=== PATIENT | male | born 1940 | race Caucasian/White ===

== ENCOUNTER 2018-09-21 19:07 | Inpatient (IN) ==
[2018-09-21] MEDS ORDERED: Sod Chloride 0.9% Inj 1,000 ML IV.SIG ONE (19:20)
[2018-09-21] MEDS ORDERED: Octreotide Inj 50 MCG/ML Vial IV.PUSH ONE (19:24)
[2018-09-21] MEDS ORDERED: Pantoprazole Inj 80 MG in Sodium Chlor 0.9% Inj 35 ML IV.SIG ONE (19:24)
[2018-09-21] MEDS ORDERED: Octreotide Inj 50 MCG/ML Vial IV.PUSH PRN (19:24)
[2018-09-21 19:53] LABS: Baso # (Auto) 0.1 th/mm3 (0.0-0.2); Baso % (Auto) 0.7 % (0.0-2.0); Eos # (Auto) 0.5 th/mm3 (0.0-0.4); Eos % (Auto) 5.1 % (0.0-4.0); Hematocrit 23.1 % (39.0-51.0); Lymph # (Auto) 0.9 th/mm3 (1.0-4.8); Lymph % (Auto) 9.7 % (9.0-44.0); Mean Corpuscular HGB Conc 34.5 % (32.0-36.0); Mean Corpuscular Hemoglobin 29.3 pg (27.0-34.0); Mean Corpuscular Volume 85.1 fL (80.0-100.0); Mean Platelet Volume 9.3 fL (7.0-11.0); Mono # (Auto) 1.6 th/mm3 (0.0-0.9); Neut # (Auto) 6.3 th/mm3 (1.8-7.7); Neut % (Auto) 67.5 % (16.0-70.0); Platelet Count 127 th/mm3 (150-450); Red Blood Count 2.72 mil/mm3 (4.50-5.90); Red Cell Distribution Width 16.1 % (11.6-17.2); White Blood Count 9.3 th/mm3 (4.0-11.0)
[2018-09-21] MEDS ORDERED: Morphine Sulfate Inj 2 MG/ML Vial IV.PUSH PRN (19:58)
[2018-09-21] MEDS ORDERED: Bisacodyl 10 MG Supp RECTAL PRN (19:58)
--- NOTE | 2018-09-21 19:58 | P.HPCC ---
History of Present Illness Service: Critical care medicine Primary Care Physician: [facility] History of Present Illness: History was largely obtained from his daughter who is at bedside. 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 He was diagnosed with hepatitis C at the time of his stroke and underwent treatment for that. He has cirrhosis and was diagnosed with "liver cancer" about a year and a half ago and underwent 1 round of chemo, radiation, chemo embolization ( TACE procedure) at the [facility] in [place]. He has relocated to [place] to live near his daughter. At around 4 pm 09/21 he had an episode of hematemesis. He then went to his friend's house and had another episode of hematemesis and syncope with bowel and bladder incontinence. His daughter then put him in the car and he had an additional episode of hematemesis so he was brought into the emergency department. Here his blood pressure has been 110- 120 with heart rate in the 80s. He is not on any anticoagulant therapy or NSAIDS. He has not had a prior history of GI bleeding. He does have recurrent ascites and has undergone monthly since July of 2017, although the last paracentesis was 4 months ago. In the ED he has received 1 L NS bolus, Protonix 80 mg IV and drip and Octreotide 50 mcg IV and drip. He is receiving 2 units of emergency release blod. Gastroenterology has been consulted and plants to take patient emergently to OR. He has had 2 episodes of vomiting dark clots in the ED. Daughter states his diuretic was recently "stopped or cut back on dose". She does not have a list of his current medications, but is trying to access his records on the [facility]. - Diagnosis (1) Acute blood loss anemia (2) Hematemesis (3) Cirrhosis (4) Hx of hepatitis C (5) MART (acute kidney injury) (6) Thrombocytopenia Inpatient Certification: I certify that the inpatient services were ordered in accordance with Medicare regulations governing the order. This includes certification that hospital inpatient services are reasonable and necessary and in the case of services not specified as inpatient-only under 42 CFR 419.22(n), that they are appropriately provided as inpatient services in accordance to with the 2-midnight benchmark under 43 CFR 412.3(e) Review of Systems All other systems reviewed negative except as stated in HPI PMFSH - History History Provided By: Patient, Family Member - Medical History Medical History: Medical History (Last Updated 09/21/18 @ 20:24 by Annita Vuong MD) Aphasia Cirrhosis History of stroke Liver cancer - Surgical History Surgical History: Surgical History (Last Updated 09/21/18 @ 20:26 by Annita Vuong MD) Hx of appendectomy - Family History Family History: Family History (Last Updated 09/21/18 @ 20:26 by Annita Vuong MD) Other Family history unknown - Social History I have reviewed the patient's Social History: Yes - Tobacco History Smoking Status: Former smoker - Alcohol History How Often Do You Have a Drink Containing Alcohol: Never (quit 56) - Substance Use History Substance History: Past History - Substance Use Type Alcohol Last Used: 5 years ago Medications and Allergies Active Medications: Active Medications Sodium Chloride (Ns Inj) 250 mls @ 15 mls/hr IV.SIG ONCE NALINI Stop: 09/22/18 12:39 Pantoprazole Sodium 80 mg/ (Sodium Chloride) 100 mls @ 10 mls/hr IV.CONT CONT NALINI Sodium Chloride (Ns Inj) 250 mls @ 15 mls/hr IV.SIG ONCE NALINI Stop: 09/22/18 12:39 Phytonadione 10 mg/ Sodium (Chloride) 51 mls @ 102 mls/hr IV.SIG ONCE ONE Stop: 09/21/18 20:29 Octreotide Acetate (Sandostatin Inj) 50 mcg IV.PUSH PRN PRN PRN Reason: For uncontrolled hemorrhage Stop: 09/22/18 19:23 Sodium Chloride (Ns Flush) 2 ml IV.FLUSH PRN PRN PRN Reason: FLUSH AFTER USING IV ACCESS Allergies Allergy/AdvReac Type Severity Reaction Status Date / Time No Known Allergies Allergy Verified 09/21/18 19:20 Results - Labs CBC & Chem 7: 09/22/18 00:13 09/21/18 19:20 Labs: Short CBC 09/21/18 Range/Units 19:20 WBC 9.3 (4.0-11.0) th/mm3 Hgb 8.0 L (13.0-17.0) gm/dL Hct 23.1 L (39.0-51.0) % Plt Count 127 L (150-450) th/mm3 Exam Vital signs: Vital Signs 09/21/18 19:07 09/21/18 19:26 09/21/18 19:38 Temperature 97.8 F 98.1 F Pulse Rate 89 87 Respiratory Rate 22 18 Blood Pressure 128/58 L 112/59 L Pulse Oximetry 97 97 98 Intake & Output 09/21/18 09/21/18 09/22/18 06:59 18:59 06:59 Intake Total 400 / 400 Balance 400 / 400 Weight 72.575 kg Intake: Intake (Blood Product) Amt 400 / 400 Rbc As-3 Leukoreduced Unit 400 / 400 [id number] Narrative: GENERAL: Ill-appearing male who is laying in ED stretcher. SKIN: cool, dry. Annular rash with central clearing on abdomen which appears is pruritic due to excoriation, appears c/w tinea corporis. There is excoriating over the left lateral thigh. There are multiple patches on his back that have somewhat different morphology than the lesions on his abdomen that could be pityriasis. HEAD: Atraumatic. Normocephalic. EYES: Pupils equal and round. ENT: No nasal bleeding or discharge. Mucous membranes dry. NECK: Trachea midline. Jugular vein flat. CARDIOVASCULAR: Regular rate and rhythm, sinus on the monitor with rate in the 80s. No murmurs rubs or gallops. RESPIRATORY: Mildly tachypneic with no accessory muscle use. Clear to auscultation bilaterally. On room air. GASTROINTESTINAL: Abdomen distended without tenderness or rebound, reducible umbilical hernia. Hypoactive bowel sounds. MUSCULOSKELETAL: Extremities without clubbing, cyanosis. 1+ bipedal edema. NEUROLOGICAL: Awake but lethargic. oriented to self and hospital. Moves all extremities spontaneously. Caprini VTE Risk Assessment Caprini VTE Risk Assessment: Moderate/High Risk (score >= 2) VTE Pharmacological Exception Reason: Hemorrhage Caprini Risk Assessment Model: Point Value = 1 Point Value = 2 Point Value = 3 Point Value = 5 Age 41-60 Minor surgery BMI > 25 kg/m2 Swollen legs Varicose veins or History of unexplained or recurrent spontaneous Oral contraceptives or hormone replacement Sepsis (< 1 month) Serious lung disease, including pneumonia (< 1 month) Abnormal pulmonary function Acute myocardial infarction Congestive heart failure (< 1 month) History of inflammatory bowel disease Medical patient at bed rest Age 61-74 Arthroscopic surgery Major open surgery (> 45 min) Laparoscopic surgery (> 45 min) Malignancy Confined to bed (> 72 hours) Immobilizing plaster cast Central venous access Age >= 75 History of VTE Family history of VTE Factor V Leiden Prothrombin [id number] Lupus anticoagulant Anticardiolipin antibodies Elevated serum homocysteine Heparin-induced thrombocytopenia Other congenital or acquired thrombophilia Stroke (< 1 month) Elective arthroplasty Hip, pelvis, or leg fracture Acute spinal cord injury (< 1 month) Prophylaxis Regimen: Total Risk Factor Score Risk Level Prophylaxis Regimen 0-1 Low Early ambulation 2 Moderate Order ONE of the following: *Sequential Compression Device (SCD) *Heparin 5000 units SQ BID 3-4 Higher Order ONE of the following medications: *Heparin 5000 units SQ TID *Enoxaparin/Lovenox 40 mg SQ daily (WT < 150 kg, CrCl > 30 mL/min) *Enoxaparin/Lovenox 30 mg SQ daily (WT < 150 kg, CrCl > 10-29 mL/min) *Enoxaparin/Lovenox 30 mg SQ BID (WT < 150 kg, CrCl > 30 mL/min) AND/OR *Sequential Compression Device (SCD) 5 or more Highest Order ONE of the following medications: *Heparin 5000 units SQ TID (Preferred with Epidurals) *Enoxaparin/Lovenox 40 mg SQ daily (WT < 150 kg, CrCl > 30 mL/min) *Enoxaparin/Lovenox 30 mg SQ daily (WT < 150 kg, CrCl > 10-29 mL/min) *Enoxaparin/Lovenox 30 mg SQ BID (WT < 150 kg, CrCl > 30 mL/min) AND *Sequential Compression Device (SCD) Assessment and Plan - Problem List (1) Acute blood loss anemia Code(s): D62 - Acute posthemorrhagic anemia Status: Acute (2) Hematemesis Code(s): K92.0 - Hematemesis Status: Acute (3) Cirrhosis Code(s): K74.60 - Unspecified cirrhosis of liver Status: Chronic (4) Hx of hepatitis C Code(s): Z86.19 - Personal history of other infectious and parasitic diseases Status: Chronic (5) MART (acute kidney injury) Code(s): N17.9 - Acute kidney failure, unspecified Status: Acute (6) Thrombocytopenia Code(s): D69.6 - Thrombocytopenia, unspecified Status: Acute - Assessment and Plan Plan: NEURO: History of stroke with residual aphasia Hyperammonemia No NGT so unable to give po lactulose/rifaximin currently. Morphine prn pain. Propofol drip, RASS -2. RESP: Acute respiratory failure To remain intubated for airway protection while observing for ongoing UGI bleeding. PRVC. Vent Bundle CXR clear with satisfactory ETT position. CV: Essential hypertension On Norvasc at home. Will hold. D5 LR 125 ml/hr. GI: Upper GI bleed secondary to esophageal varices now s/p banding Hx Hep C Cirrhosis Hepatocellular carcinoma s/p TACE procedure Recurrent ascites Protonix drip Octreotide drip Serial hemoglobin Gastroenterology scoped emergently, Dr. Beverly. Esophageal varices banded. Reportedly no active bleeding but unable to rule out gastric varices due to presence of clots in the stomach. No NGT. FEN/RENAL: ?MART (unknown baseline creatinine) Burnett in place. Monitor I/O. Monitor electrolytes and replace as indicated per ICU electrolyte replacement protocol. IVF as per above. ID: Rocephin for SBP prophylaxis. Tinea corporis Clotrimazole 1% cream bid. HEME: Acute blood loss anemia Thrombocytopenia Coagulopathy Transfuse 2 units of emergency release blood. Transfuse 1 unit FFP and 1 unit of platelets per ED physician. Vitamin K 10 mg IV now. Follow-up coags and fibrinogen and serial hemoglobin. Transfuse as indicated based on hemodynamics or for Hgb <7, plts <50, fibrinogen <100. ENDO: Euglycemic PROPH: SCDs for DVT prophylaxis. Pharmacologic DVT prophylaxis is contraindicated. Protonix drip as per above ACCESS: [address]. Patient is critically ill with acute hematemesis and blood loss anemia who is at high risk for further deterioration or . Discussed with Dr. Leal, Dr. Beverly, ED RN, PACU RNs, IMC RN. FULL CODE CCT 60 minutes exclusive of separately billable procedures.
[2018-09-21] MEDS ORDERED: Phytonadione Inj 10 MG in Sodium Chlor 0.9% Inj 50 ML IV.SIG ONE (20:00)
[2018-09-21] MEDS ORDERED: Sodium Chlor 0.9% Inj 250 ML IV.SIG SCH ×2 (20:00)
[2018-09-21] MEDS ORDERED: Pantoprazole Inj 80 MG in Sodium Chlor 0.9% Inj 100 ML IV.CONT SCH (20:00)
[2018-09-21] MEDS ORDERED: Famotidine PF Inj 20 MG/2 ML Vial ONE (20:00)
[2018-09-21 20:07] LABS: Albumin 2.2 g/dL (3.4-5.0); Anion Gap 10 meq/L (5-15); Aspartate Aminotransferase 45 U/L (15-37); Blood Urea Nitrogen 52 mg/dL (7-18); Carbon Dioxide 24.5 meq/L (21.0-32.0); Chloride 108 meq/L (98-107); Glomerular Filtration Rate 34 mL/min (>89); Glucose,Random 153 mg/dL (74-106); Potassium 3.5 meq/L (3.5-5.1); Sodium 142 meq/L (136-145)
[2018-09-21 20:08] LABS: Alanine Aminotransferase 36 U/L (12-78)
[2018-09-21 20:09] LABS: Activated Partial Thrombo Time 32.9 sec (23.4-31.7); INR 1.5 Ratio; Prothrombin Time 15.2 sec (9.8-11.6)
--- NOTE | 2018-09-21 20:09 | ED ---
HPI General Chief complaint: GI Bleed Stated complaint: medical Time Seen by Provider: 09/21/18 19:12 Source: patient and family (Daughter) Mode of arrival: ambulatory Limitations: no limitations History of Present Illness HPI Narrative: 78-year-old male came to the emergency room brought by his daughter and son-in-law with history of vomiting blood. The daughter says that patient was with them and around 5 PM as they were coming out of the cousin's house patient vomited some blood and passed out at the front porch. He was incontinent of his urine and stool. She cleaned him and put him in the car patient woke up at that point and they started driving back home. Soon after she noticed that in the back of the car his eyes rolled back and patient vomited blood again. At this point she decided to bring him to the emergency room. Patient was awake but confused and kept saying that he vomited "chilli". His blood pressure upon arrival was 128/58. Daughter says that he has history of liver cancer and got 1 round of radiation and chemotherapy last year at [facility] in [facility]. He just moved down here to be with her approximately 2 months back. He does not have any established medical care here. Patient was recently started on some antibiotic and steroid for a generalized rash. He has not been diagnosed with varices. However the daughter said that he has had multiple paracentesis for ascites. His ankles and feet are swollen. Patient is not complaining of any pain. Patient told me that for past 2 days he has been feeling like there is something in his throat that he is trying to cough it out. He thought he was coming down with a cold. No blood in the stool. Related Data Allergies Allergy/AdvReac Type Severity Reaction Status Date / Time No Known Allergies Allergy Verified 09/21/18 19:20 Review of Systems ROS: all other systems reviewed are negative PMFSH History History Provided By: Patient and Family Member Social History Social History Substance History: Past History Smoking Status: Former smoker Tobacco Type: Cigarettes How Often Do You Have a Drink Containing Alcohol: Never (quit 56) Exam Narrative Exam Narrative: GENERAL: Awake, confused, moderate distress SKIN: Focused skin assessment warm/dry. Generalized erythematous, maculopapular rash. Spider angiomas, purpura HEAD: Atraumatic. Normocephalic. EYES: Pupils equal and round. No scleral icterus. No injection or drainage. ENT: No nasal bleeding or discharge. Mucous membranes pink and moist. NECK: Trachea midline. No JVD. CARDIOVASCULAR: Regular rate and rhythm. No murmur appreciated. RESPIRATORY: No accessory muscle use. Clear to auscultation. Breath sounds equal bilaterally. GASTROINTESTINAL: Abdomen soft, non-tender, distended. Hepatic and splenic margins not palpable. Caput MUSCULOSKELETAL: No obvious deformities. No clubbing. No cyanosis. Bilateral pedal edema. NEUROLOGICAL: Awake and alert. No obvious cranial nerve deficits. Motor grossly within normal limits. Normal speech. PSYCHIATRIC: Appropriate mood and affect; insight and judgment normal. Procedures Hemaprompt Gastric Content Procedural Steps Taken: specimen placed in appropriate test area, developer placed on specimen and control areas and controls appropriately positive and negative Hemaprompt Gastric Result: negative Course Initial Documented Vital Signs Temperature 97.8 F 09/21/18 19:07 Pulse Rate 89 09/21/18 19:07 Respiratory Rate 22 09/21/18 19:07 Blood Pressure 128/58 L 09/21/18 19:07 Pulse Oximetry 97 09/21/18 19:07 Last Documented Vital Signs Temperature 100.5 F H 09/26/18 08:00 Pulse Rate 110 H 09/26/18 10:00 Respiratory Rate 18 09/26/18 09:21 Blood Pressure 152/73 H 09/26/18 08:30 Pulse Oximetry 100 09/26/18 09:21 Critical Care Time Critical Care Time: Yes Total Critical Care Time: 60 Attestation: Aggregate critical care time was 60 minutes. Time to perform other separately billable procedures was not included in the critical care time. My time did not include minutes spent treating any other patients simultaneously or on activities that did not directly contribute to the patient's treatment. The services I provided to this patient were to treat and/or prevent clinically significant deterioration that could result in: Massive upper GI bleed, Sandostatin bolus and drip, Protonix bolus and drip , transfusion of multiple blood product I provided critical care services requiring my management, as noted below: Chart data review, documentation time, medication orders and management, vital sign assessments/reviewing monitor data, ordering and reviewing lab tests, ordering and interpreting/reviewing x-rays and diagnostic studies, care of the patient and discussion of the patient with the admitting physicians. Medical Decision Making MDM Narrative Medical decision making narrative: 8:06 PM patient was recognized to be in possibly variceal bleeding/upper GI bleed. His shirt was covered in blood and blood clots. This was removed emergently and two large bore IVs were placed. Patient was initially started with 1 L of IV fluid bolus. His blood pressure when I saw him first was 105 systolic. Emergency release blood 2 units was ordered along with 2 units of FFP. Octreotide bolus and drip was ordered and Protonix bolus and drip. GI on-call was called emergently. I spoke with . As per him it was okay to go ahead and transfuse platelets as well. He agreed that the patient needed to go for endoscopy emergently. He wanted the consents to be signed and he was arranging for the team to get to the OR. I explained all this to the patient as well as his daughter. Soon after patient started vomiting blood in the ER again. This time he had close to 200 mL's of bright red blood vomited. Patient is receiving the blood products currently. He is hemodynamically stable at this point. Awaiting for the OR to take the patient for endoscopy. I contacted Dr. Vuong from ICU who will admit the patient. Patient continues to be mentating okay. Medical Screen Exam Complete: Yes Emergency Medical Condition: Yes Lab Data Result diagrams: 09/26/18 06:13 09/26/18 06:13 Lab Results 09/21/18 09/21/18 09/21/18 Range/Units 19:20 19:20 19:20 WBC 9.3 (4.0-11.0) th/mm3 RBC 2.72 L (4.50-5.90) mil/mm3 Hgb 8.0 L (13.0-17.0) gm/dL Hct 23.1 L (39.0-51.0) % MCV 85.1 (80.0-100.0) fL MCH 29.3 (27.0-34.0) pg MCHC 34.5 (32.0-36.0) % RDW 16.1 (11.6-17.2) % Plt Count 127 L (150-450) th/mm3 MPV 9.3 (7.0-11.0) fL Prelim Diff (Auto) Neut % (Auto) 67.5 (16.0-70.0) % Lymph % (Auto) 9.7 (9.0-44.0) % Miller % (Auto) 17.0 H (0.0-8.0) % Eos % (Auto) 5.1 H (0.0-4.0) % Baso % (Auto) 0.7 (0.0-2.0) % Neut # (Auto) 6.3 (1.8-7.7) th/mm3 Lymph # (Auto) 0.9 L (1.0-4.8) th/mm3 Miller # (Auto) 1.6 H (0.0-0.9) th/mm3 Eos # (Auto) 0.5 H (0.0-0.4) th/mm3 Baso # (Auto) 0.1 (0.0-0.2) th/mm3 WBC Differential . Diff Scan Differential Comment Auto diff final Platelet Estimate (Normal) Platelet Morphology (Normal) Ovalocytes (None) Acanthocytes (Spur) (None) Keratocytes (None) PT 15.2 H (9.8-11.6) sec INR 1.5 Ratio APTT 32.9 H (23.4-31.7) sec Fibrinogen (227-377) mg/dL Puncture Site Patient Temperature O2 Saturation (90-100) % ABG pH (7.380-7.420) ABG pCO2 (38-42) mmHg ABG pO2 (61-120) mmHG ABG HCO3 (22-26) mmol/L ABG O2 Content (12.0-20.0) Vol % ABG Base Excess (-2-2) mmol/L ABG Methemoglobin (0-2) % Thierno Test Hemoglobin (12.0-16.0) G/DL Carboxyhemoglobin (0-4) % O2 Delivery Device Vent Setting Inspired O2 % Critical Value Sodium 142 (136-145) meq/L Potassium 3.5 (3.5-5.1) meq/L Chloride 108 H (98-107) meq/L Carbon Dioxide 24.5 (21.0-32.0) meq/L Anion Gap 10 (5-15) meq/L BUN 52 H (7-18) mg/dL Creatinine 1.92 H (0.60-1.30) mg/dL Estimated GFR 34 L (>89) mL/min POC Glucose (68-110) mg/dl Random Glucose 153 H (74-106) mg/dL Lactic Acid (0.4-2.0) mmol/L Calcium 8.0 L (8.5-10.1) mg/dL Phosphorus (2.5-4.9) mg/dL Magnesium (1.5-2.5) mg/dL Total Bilirubin 1.1 H (0.2-1.0) mg/dL AST 45 H (15-37) U/L ALT 36 (12-78) U/L Alkaline Phosphatase 76 (45-117) U/L Ammonia (11-32) mcmol/L Lactate Dehydrogenase (87-241) U/L Total Creatine Kinase (39-308) U/L CK-MB (CK-2) (0.5-3.6) ng/mL CK-MB (CK-2) % (0.0-4.0) % Troponin I (0.02-0.05) ng/mL Total Protein 5.2 L (6.4-8.2) g/dL Albumin 2.2 L (3.4-5.0) g/dL TSH (0.358-3.740) uIU/mL Free T4 (0.76-1.46) ng/dL Total T3 (60-181) ng/dL Urine Osmolality (300-1300) mosm/kg Ur Random Sodium meq/L Peritoneal RBC (0-0) /mm3 Periton Nuc Cells (0-10) /mm3 Periton Neutrophils % Periton Lymphocytes % Peritoneal Monocytes % Periton Mesothelial % Periton Histiocytes % Peritoneal Tot Protein gm/dL Peritoneal Albumin g/dL Peritoneal LDH U/L Peritoneal Glucose mg/dL Nasal Screen MRSA (PCR) (Negative) Digoxin (0.8-2.0) ng/mL Blood Type Antibody Screen MTS Gel Crossmatch Blood Bank Comment Bld Prod Order Comment 09/21/18 09/21/18 09/21/18 Range/Units 19:20 19:20 19:20 WBC (4.0-11.0) th/mm3 RBC (4.50-5.90) mil/mm3 Hgb (13.0-17.0) gm/dL Hct (39.0-51.0) % MCV (80.0-100.0) fL MCH (27.0-34.0) pg MCHC (32.0-36.0) % RDW (11.6-17.2) % Plt Count (150-450) th/mm3 MPV (7.0-11.0) fL Prelim Diff (Auto) Neut % (Auto) (16.0-70.0) % Lymph % (Auto) (9.0-44.0) % Miller % (Auto) (0.0-8.0) % Eos % (Auto) (0.0-4.0) % Baso % (Auto) (0.0-2.0) % Neut # (Auto) (1.8-7.7) th/mm3 Lymph # (Auto) (1.0-4.8) th/mm3 Miller # (Auto) (0.0-0.9) th/mm3 Eos # (Auto) (0.0-0.4) th/mm3 Baso # (Auto) (0.0-0.2) th/mm3 WBC Differential Diff Scan Differential Comment Platelet Estimate (Normal) Platelet Morphology (Normal) Ovalocytes (None) Acanthocytes (Spur) (None) Keratocytes (None) PT (9.8-11.6) sec INR Ratio APTT (23.4-31.7) sec Fibrinogen (227-377) mg/dL Puncture Site Patient Temperature O2 Saturation (90-100) % ABG pH (7.380-7.420) ABG pCO2 (38-42) mmHg ABG pO2 (61-120) mmHG ABG HCO3 (22-26) mmol/L ABG O2 Content (12.0-20.0) Vol % ABG Base Excess (-2-2) mmol/L ABG Methemoglobin (0-2) % Thierno Test Hemoglobin (12.0-16.0) G/DL Carboxyhemoglobin (0-4) % O2 Delivery Device Vent Setting Inspired O2 % Critical Value Sodium (136-145) meq/L Potassium (3.5-5.1) meq/L Chloride (98-107) meq/L Carbon Dioxide (21.0-32.0) meq/L Anion Gap (5-15) meq/L BUN (7-18) mg/dL Creatinine (0.60-1.30) mg/dL Estimated GFR (>89) mL/min POC Glucose (68-110) mg/dl Random Glucose (74-106) mg/dL Lactic Acid (0.4-2.0) mmol/L Calcium (8.5-10.1) mg/dL Phosphorus (2.5-4.9) mg/dL Magnesium (1.5-2.5) mg/dL Total Bilirubin (0.2-1.0) mg/dL AST (15-37) U/L ALT (12-78) U/L Alkaline Phosphatase (45-117) U/L Ammonia 43 H (11-32) mcmol/L Lactate Dehydrogenase (87-241) U/L Total Creatine Kinase (39-308) U/L CK-MB (CK-2) (0.5-3.6) ng/mL CK-MB (CK-2) % (0.0-4.0) % Troponin I (0.02-0.05) ng/mL Total Protein (6.4-8.2) g/dL Albumin (3.4-5.0) g/dL TSH (0.358-3.740) uIU/mL Free T4 (0.76-1.46) ng/dL Total T3 (60-181) ng/dL Urine Osmolality (300-1300) mosm/kg Ur Random Sodium meq/L Peritoneal RBC (0-0) /mm3 Periton Nuc Cells (0-10) /mm3 Periton Neutrophils % Periton Lymphocytes % Peritoneal Monocytes % Periton Mesothelial % Periton Histiocytes % Peritoneal Tot Protein gm/dL Peritoneal Albumin g/dL Peritoneal LDH U/L Peritoneal Glucose mg/dL Nasal Screen MRSA (PCR) (Negative) Digoxin (0.8-2.0) ng/mL Blood Type A Positive Antibody Screen Negative MTS Gel Crossmatch See Detail See Detail Blood Bank Comment Bld Prod Order Comment 09/21/18 09/21/18 09/21/18 Range/Units 19:20 19:26 19:29 WBC (4.0-11.0) th/mm3 RBC (4.50-5.90) mil/mm3 Hgb (13.0-17.0) gm/dL Hct (39.0-51.0) % MCV (80.0-100.0) fL MCH (27.0-34.0) pg MCHC (32.0-36.0) % RDW (11.6-17.2) % Plt Count (150-450) th/mm3 MPV (7.0-11.0) fL Prelim Diff (Auto) Neut % (Auto) (16.0-70.0) % Lymph % (Auto) (9.0-44.0) % Miller % (Auto) (0.0-8.0) % Eos % (Auto) (0.0-4.0) % Baso % (Auto) (0.0-2.0) % Neut # (Auto) (1.8-7.7) th/mm3 Lymph # (Auto) (1.0-4.8) th/mm3 Miller # (Auto) (0.0-0.9) th/mm3 Eos # (Auto) (0.0-0.4) th/mm3 Baso # (Auto) (0.0-0.2) th/mm3 WBC Differential Diff Scan Differential Comment Platelet Estimate (Normal) Platelet Morphology (Normal) Ovalocytes (None) Acanthocytes (Spur) (None) Keratocytes (None) PT (9.8-11.6) sec INR Ratio APTT (23.4-31.7) sec Fibrinogen 103 L (227-377) mg/dL Puncture Site Patient Temperature O2 Saturation (90-100) % ABG pH (7.380-7.420) ABG pCO2 (38-42) mmHg ABG pO2 (61-120) mmHG ABG HCO3 (22-26) mmol/L ABG O2 Content (12.0-20.0) Vol % ABG Base Excess (-2-2) mmol/L ABG Methemoglobin (0-2) % Thierno Test Hemoglobin (12.0-16.0) G/DL Carboxyhemoglobin (0-4) % O2 Delivery Device Vent Setting Inspired O2 % Critical Value Sodium (136-145) meq/L Potassium (3.5-5.1) meq/L Chloride (98-107) meq/L Carbon Dioxide (21.0-32.0) meq/L Anion Gap (5-15) meq/L BUN (7-18) mg/dL Creatinine (0.60-1.30) mg/dL Estimated GFR (>89) mL/min POC Glucose (68-110) mg/dl Random Glucose (74-106) mg/dL Lactic Acid (0.4-2.0) mmol/L Calcium (8.5-10.1) mg/dL Phosphorus (2.5-4.9) mg/dL Magnesium (1.5-2.5) mg/dL Total Bilirubin (0.2-1.0) mg/dL AST (15-37) U/L ALT (12-78) U/L Alkaline Phosphatase (45-117) U/L Ammonia (11-32) mcmol/L Lactate Dehydrogenase (87-241) U/L Total Creatine Kinase (39-308) U/L CK-MB (CK-2) (0.5-3.6) ng/mL CK-MB (CK-2) % (0.0-4.0) % Troponin I (0.02-0.05) ng/mL Total Protein (6.4-8.2) g/dL Albumin (3.4-5.0) g/dL TSH (0.358-3.740) uIU/mL Free T4 (0.76-1.46) ng/dL Total T3 (60-181) ng/dL Urine Osmolality (300-1300) mosm/kg Ur Random Sodium meq/L Peritoneal RBC (0-0) /mm3 Periton Nuc Cells (0-10) /mm3 Periton Neutrophils % Periton Lymphocytes % Peritoneal Monocytes % Periton Mesothelial % Periton Histiocytes % Peritoneal Tot Protein gm/dL Peritoneal Albumin g/dL Peritoneal LDH U/L Peritoneal Glucose mg/dL Nasal Screen MRSA (PCR) (Negative) Digoxin (0.8-2.0) ng/mL Blood Type Antibody Screen MTS Gel Crossmatch See Detail Blood Bank Comment Bld Prod Order Comment 09/21/18 09/21/18 09/22/18 Range/Units 21:59 22:30 00:13 WBC 8.2 (4.0-11.0) th/mm3 RBC 3.13 L (4.50-5.90) mil/mm3 Hgb 9.1 L (13.0-17.0) gm/dL Hct 26.6 L (39.0-51.0) % MCV 85.0 (80.0-100.0) fL MCH 29.0 (27.0-34.0) pg MCHC 34.1 (32.0-36.0) % RDW 16.5 (11.6-17.2) % Plt Count 101 L (150-450) th/mm3 MPV 8.8 (7.0-11.0) fL Prelim Diff (Auto) Neut % (Auto) (16.0-70.0) % Lymph % (Auto) (9.0-44.0) % Miller % (Auto) (0.0-8.0) % Eos % (Auto) (0.0-4.0) % Baso % (Auto) (0.0-2.0) % Neut # (Auto) (1.8-7.7) th/mm3 Lymph # (Auto) (1.0-4.8) th/mm3 Miller # (Auto) (0.0-0.9) th/mm3 Eos # (Auto) (0.0-0.4) th/mm3 Baso # (Auto) (0.0-0.2) th/mm3 WBC Differential Diff Scan Differential Comment Platelet Estimate (Normal) Platelet Morphology (Normal) Ovalocytes (None) Acanthocytes (Spur) (None) Keratocytes (None) PT (9.8-11.6) sec INR Ratio APTT (23.4-31.7) sec Fibrinogen (227-377) mg/dL Puncture Site Left radial Patient Temperature 98.6 O2 Saturation 94 (90-100) % ABG pH 7.32 L (7.380-7.420) ABG pCO2 47 H (38-42) mmHg ABG pO2 97 (61-120) mmHG ABG HCO3 23 (22-26) mmol/L ABG O2 Content 12.1 (12.0-20.0) Vol % ABG Base Excess -1.8 (-2-2) mmol/L ABG Methemoglobin 1.5 (0-2) % Thierno Test Present Hemoglobin 9.0 L (12.0-16.0) G/DL Carboxyhemoglobin 1.1 (0-4) % O2 Delivery Device Ventilator Vent Setting Prvc/ac Inspired O2 50 % Critical Value No Sodium (136-145) meq/L Potassium (3.5-5.1) meq/L Chloride (98-107) meq/L Carbon Dioxide (21.0-32.0) meq/L Anion Gap (5-15) meq/L BUN (7-18) mg/dL Creatinine (0.60-1.30) mg/dL Estimated GFR (>89) mL/min POC Glucose (68-110) mg/dl Random Glucose (74-106) mg/dL Lactic Acid (0.4-2.0) mmol/L Calcium (8.5-10.1) mg/dL Phosphorus (2.5-4.9) mg/dL Magnesium (1.5-2.5) mg/dL Total Bilirubin (0.2-1.0) mg/dL AST (15-37) U/L ALT (12-78) U/L Alkaline Phosphatase (45-117) U/L Ammonia (11-32) mcmol/L Lactate Dehydrogenase (87-241) U/L Total Creatine Kinase (39-308) U/L CK-MB (CK-2) (0.5-3.6) ng/mL CK-MB (CK-2) % (0.0-4.0) % Troponin I (0.02-0.05) ng/mL Total Protein (6.4-8.2) g/dL Albumin (3.4-5.0) g/dL TSH (0.358-3.740) uIU/mL Free T4 (0.76-1.46) ng/dL Total T3 (60-181) ng/dL Urine Osmolality (300-1300) mosm/kg Ur Random Sodium meq/L Peritoneal RBC (0-0) /mm3 Periton Nuc Cells (0-10) /mm3 Periton Neutrophils % Periton Lymphocytes % Peritoneal Monocytes % Periton Mesothelial % Periton Histiocytes % Peritoneal Tot Protein gm/dL Peritoneal Albumin g/dL Peritoneal LDH U/L Peritoneal Glucose mg/dL Nasal Screen MRSA (PCR) Not detected (Negative) Digoxin (0.8-2.0) ng/mL Blood Type Antibody Screen MTS Gel Crossmatch Blood Bank Comment Bld Prod Order Comment 09/22/18 09/22/18 09/22/18 Range/Units 00:13 00:13 00:13 WBC (4.0-11.0) th/mm3 RBC (4.50-5.90) mil/mm3 Hgb (13.0-17.0) gm/dL Hct (39.0-51.0) % MCV (80.0-100.0) fL MCH (27.0-34.0) pg MCHC (32.0-36.0) % RDW (11.6-17.2) % Plt Count (150-450) th/mm3 MPV (7.0-11.0) fL Prelim Diff (Auto) Neut % (Auto) (16.0-70.0) % Lymph % (Auto) (9.0-44.0) % Miller % (Auto) (0.0-8.0) % Eos % (Auto) (0.0-4.0) % Baso % (Auto) (0.0-2.0) % Neut # (Auto) (1.8-7.7) th/mm3 Lymph # (Auto) (1.0-4.8) th/mm3 Miller # (Auto) (0.0-0.9) th/mm3 Eos # (Auto) (0.0-0.4) th/mm3 Baso # (Auto) (0.0-0.2) th/mm3 WBC Differential Diff Scan Differential Comment Platelet Estimate (Normal) Platelet Morphology (Normal) Ovalocytes (None) Acanthocytes (Spur) (None) Keratocytes (None) PT 14.5 H (9.8-11.6) sec INR 1.4 Ratio APTT (23.4-31.7) sec Fibrinogen 115 L (227-377) mg/dL Puncture Site Patient Temperature O2 Saturation (90-100) % ABG pH (7.380-7.420) ABG pCO2 (38-42) mmHg ABG pO2 (61-120) mmHG ABG HCO3 (22-26) mmol/L ABG O2 Content (12.0-20.0) Vol % ABG Base Excess (-2-2) mmol/L ABG Methemoglobin (0-2) % Thierno Test Hemoglobin (12.0-16.0) G/DL Carboxyhemoglobin (0-4) % O2 Delivery Device Vent Setting Inspired O2 % Critical Value Sodium (136-145) meq/L Potassium (3.5-5.1) meq/L Chloride (98-107) meq/L Carbon Dioxide (21.0-32.0) meq/L Anion Gap (5-15) meq/L BUN (7-18) mg/dL Creatinine (0.60-1.30) mg/dL Estimated GFR (>89) mL/min POC Glucose (68-110) mg/dl Random Glucose (74-106) mg/dL Lactic Acid 2.4 H (0.4-2.0) mmol/L Calcium (8.5-10.1) mg/dL Phosphorus (2.5-4.9) mg/dL Magnesium (1.5-2.5) mg/dL Total Bilirubin (0.2-1.0) mg/dL AST (15-37) U/L ALT (12-78) U/L Alkaline Phosphatase (45-117) U/L Ammonia (11-32) mcmol/L Lactate Dehydrogenase (87-241) U/L Total Creatine Kinase (39-308) U/L CK-MB (CK-2) (0.5-3.6) ng/mL CK-MB (CK-2) % (0.0-4.0) % Troponin I (0.02-0.05) ng/mL Total Protein (6.4-8.2) g/dL Albumin (3.4-5.0) g/dL TSH (0.358-3.740) uIU/mL Free T4 (0.76-1.46) ng/dL Total T3 (60-181) ng/dL Urine Osmolality (300-1300) mosm/kg Ur Random Sodium meq/L Peritoneal RBC (0-0) /mm3 Periton Nuc Cells (0-10) /mm3 Periton Neutrophils % Periton Lymphocytes % Peritoneal Monocytes % Periton Mesothelial % Periton Histiocytes % Peritoneal Tot Protein gm/dL Peritoneal Albumin g/dL Peritoneal LDH U/L Peritoneal Glucose mg/dL Nasal Screen MRSA (PCR) (Negative) Digoxin (0.8-2.0) ng/mL Blood Type Antibody Screen MTS Gel Crossmatch Blood Bank Comment Bld Prod Order Comment 09/22/18 09/22/18 09/22/18 Range/Units 04:26 04:26 04:26 WBC (4.0-11.0) th/mm3 RBC (4.50-5.90) mil/mm3 Hgb (13.0-17.0) gm/dL Hct (39.0-51.0) % MCV (80.0-100.0) fL MCH (27.0-34.0) pg MCHC (32.0-36.0) % RDW (11.6-17.2) % Plt Count (150-450) th/mm3 MPV (7.0-11.0) fL Prelim Diff (Auto) Neut % (Auto) (16.0-70.0) % Lymph % (Auto) (9.0-44.0) % Miller % (Auto) (0.0-8.0) % Eos % (Auto) (0.0-4.0) % Baso % (Auto) (0.0-2.0) % Neut # (Auto) (1.8-7.7) th/mm3 Lymph # (Auto) (1.0-4.8) th/mm3 Miller # (Auto) (0.0-0.9) th/mm3 Eos # (Auto) (0.0-0.4) th/mm3 Baso # (Auto) (0.0-0.2) th/mm3 WBC Differential Diff Scan Differential Comment Platelet Estimate (Normal) Platelet Morphology (Normal) Ovalocytes (None) Acanthocytes (Spur) (None) Keratocytes (None) PT 14.5 H (9.8-11.6) sec INR 1.4 Ratio APTT 32.8 H (23.4-31.7) sec Fibrinogen (227-377) mg/dL Puncture Site Patient Temperature O2 Saturation (90-100) % ABG pH (7.380-7.420) ABG pCO2 (38-42) mmHg ABG pO2 (61-120) mmHG ABG HCO3 (22-26) mmol/L ABG O2 Content (12.0-20.0) Vol % ABG Base Excess (-2-2) mmol/L ABG Methemoglobin (0-2) % Thierno Test Hemoglobin (12.0-16.0) G/DL Carboxyhemoglobin (0-4) % O2 Delivery Device Vent Setting Inspired O2 % Critical Value Sodium 143 (136-145) meq/L Potassium 4.7 D (3.5-5.1) meq/L Chloride 110 H (98-107) meq/L Carbon Dioxide 25.4 (21.0-32.0) meq/L Anion Gap 8 (5-15) meq/L BUN 52 H (7-18) mg/dL Creatinine 1.80 H (0.60-1.30) mg/dL Estimated GFR 37 L (>89) mL/min POC Glucose (68-110) mg/dl Random Glucose 177 H (74-106) mg/dL Lactic Acid 3.0 H (0.4-2.0) mmol/L Calcium 8.0 L (8.5-10.1) mg/dL Phosphorus 3.3 (2.5-4.9) mg/dL Magnesium 1.6 (1.5-2.5) mg/dL Total Bilirubin 1.1 H (0.2-1.0) mg/dL AST 40 H (15-37) U/L ALT 34 (12-78) U/L Alkaline Phosphatase 68 (45-117) U/L Ammonia (11-32) mcmol/L Lactate Dehydrogenase (87-241) U/L Total Creatine Kinase (39-308) U/L CK-MB (CK-2) (0.5-3.6) ng/mL CK-MB (CK-2) % (0.0-4.0) % Troponin I (0.02-0.05) ng/mL Total Protein 4.9 L (6.4-8.2) g/dL Albumin 2.1 L (3.4-5.0) g/dL TSH (0.358-3.740) uIU/mL Free T4 (0.76-1.46) ng/dL Total T3 (60-181) ng/dL Urine Osmolality (300-1300) mosm/kg Ur Random Sodium meq/L Peritoneal RBC (0-0) /mm3 Periton Nuc Cells (0-10) /mm3 Periton Neutrophils % Periton Lymphocytes % Peritoneal Monocytes % Periton Mesothelial % Periton Histiocytes % Peritoneal Tot Protein gm/dL Peritoneal Albumin g/dL Peritoneal LDH U/L Peritoneal Glucose mg/dL Nasal Screen MRSA (PCR) (Negative) Digoxin (0.8-2.0) ng/mL Blood Type Antibody Screen MTS Gel Crossmatch Blood Bank Comment Bld Prod Order Comment 09/22/18 09/22/18 09/22/18 Range/Units 04:26 10:40 10:50 WBC (4.0-11.0) th/mm3 RBC (4.50-5.90) mil/mm3 Hgb 7.9 L 8.2 L (13.0-17.0) gm/dL Hct (39.0-51.0) % MCV (80.0-100.0) fL MCH (27.0-34.0) pg MCHC (32.0-36.0) % RDW (11.6-17.2) % Plt Count (150-450) th/mm3 MPV (7.0-11.0) fL Prelim Diff (Auto) Neut % (Auto) (16.0-70.0) % Lymph % (Auto) (9.0-44.0) % Miller % (Auto) (0.0-8.0) % Eos % (Auto) (0.0-4.0) % Baso % (Auto) (0.0-2.0) % Neut # (Auto) (1.8-7.7) th/mm3 Lymph # (Auto) (1.0-4.8) th/mm3 Miller # (Auto) (0.0-0.9) th/mm3 Eos # (Auto) (0.0-0.4) th/mm3 Baso # (Auto) (0.0-0.2) th/mm3 WBC Differential Diff Scan Differential Comment Platelet Estimate (Normal) Platelet Morphology (Normal) Ovalocytes (None) Acanthocytes (Spur) (None) Keratocytes (None) PT (9.8-11.6) sec INR Ratio APTT (23.4-31.7) sec Fibrinogen (227-377) mg/dL Puncture Site Patient Temperature O2 Saturation (90-100) % ABG pH (7.380-7.420) ABG pCO2 (38-42) mmHg ABG pO2 (61-120) mmHG ABG HCO3 (22-26) mmol/L ABG O2 Content (12.0-20.0) Vol % ABG Base Excess (-2-2) mmol/L ABG Methemoglobin (0-2) % Thierno Test Hemoglobin (12.0-16.0) G/DL Carboxyhemoglobin (0-4) % O2 Delivery Device Vent Setting Inspired O2 % Critical Value Sodium (136-145) meq/L Potassium (3.5-5.1) meq/L Chloride (98-107) meq/L Carbon Dioxide (21.0-32.0) meq/L Anion Gap (5-15) meq/L BUN (7-18) mg/dL Creatinine (0.60-1.30) mg/dL Estimated GFR (>89) mL/min POC Glucose (68-110) mg/dl Random Glucose (74-106) mg/dL Lactic Acid (0.4-2.0) mmol/L Calcium (8.5-10.1) mg/dL Phosphorus (2.5-4.9) mg/dL Magnesium (1.5-2.5) mg/dL Total Bilirubin (0.2-1.0) mg/dL AST (15-37) U/L ALT (12-78) U/L Alkaline Phosphatase (45-117) U/L Ammonia (11-32) mcmol/L Lactate Dehydrogenase 329 H (87-241) U/L Total Creatine Kinase (39-308) U/L CK-MB (CK-2) (0.5-3.6) ng/mL CK-MB (CK-2) % (0.0-4.0) % Troponin I (0.02-0.05) ng/mL Total Protein 5.3 L (6.4-8.2) g/dL Albumin (3.4-5.0) g/dL TSH (0.358-3.740) uIU/mL Free T4 (0.76-1.46) ng/dL Total T3 (60-181) ng/dL Urine Osmolality (300-1300) mosm/kg Ur Random Sodium meq/L Peritoneal RBC (0-0) /mm3 Periton Nuc Cells (0-10) /mm3 Periton Neutrophils % Periton Lymphocytes % Peritoneal Monocytes % Periton Mesothelial % Periton Histiocytes % Peritoneal Tot Protein gm/dL Peritoneal Albumin g/dL Peritoneal LDH U/L Peritoneal Glucose mg/dL Nasal Screen MRSA (PCR) (Negative) Digoxin (0.8-2.0) ng/mL Blood Type Antibody Screen MTS Gel Crossmatch Blood Bank Comment Bld Prod Order Comment 09/22/18 09/22/18 09/22/18 Range/Units 10:50 17:00 17:00 WBC (4.0-11.0) th/mm3 RBC (4.50-5.90) mil/mm3 Hgb (13.0-17.0) gm/dL Hct (39.0-51.0) % MCV (80.0-100.0) fL MCH (27.0-34.0) pg MCHC (32.0-36.0) % RDW (11.6-17.2) % Plt Count (150-450) th/mm3 MPV (7.0-11.0) fL Prelim Diff (Auto) Neut % (Auto) (16.0-70.0) % Lymph % (Auto) (9.0-44.0) % Miller % (Auto) (0.0-8.0) % Eos % (Auto) (0.0-4.0) % Baso % (Auto) (0.0-2.0) % Neut # (Auto) (1.8-7.7) th/mm3 Lymph # (Auto) (1.0-4.8) th/mm3 Miller # (Auto) (0.0-0.9) th/mm3 Eos # (Auto) (0.0-0.4) th/mm3 Baso # (Auto) (0.0-0.2) th/mm3 WBC Differential Diff Scan Differential Comment Platelet Estimate (Normal) Platelet Morphology (Normal) Ovalocytes (None) Acanthocytes (Spur) (None) Keratocytes (None) PT (9.8-11.6) sec INR Ratio APTT 32.8 H (23.4-31.7) sec Fibrinogen (227-377) mg/dL Puncture Site Patient Temperature O2 Saturation (90-100) % ABG pH (7.380-7.420) ABG pCO2 (38-42) mmHg ABG pO2 (61-120) mmHG ABG HCO3 (22-26) mmol/L ABG O2 Content (12.0-20.0) Vol % ABG Base Excess (-2-2) mmol/L ABG Methemoglobin (0-2) % Thierno Test Hemoglobin (12.0-16.0) G/DL Carboxyhemoglobin (0-4) % O2 Delivery Device Vent Setting Inspired O2 % Critical Value Sodium (136-145) meq/L Potassium (3.5-5.1) meq/L Chloride (98-107) meq/L Carbon Dioxide (21.0-32.0) meq/L Anion Gap (5-15) meq/L BUN (7-18) mg/dL Creatinine (0.60-1.30) mg/dL Estimated GFR (>89) mL/min POC Glucose (68-110) mg/dl Random Glucose (74-106) mg/dL Lactic Acid (0.4-2.0) mmol/L Calcium (8.5-10.1) mg/dL Phosphorus (2.5-4.9) mg/dL Magnesium (1.5-2.5) mg/dL Total Bilirubin (0.2-1.0) mg/dL AST (15-37) U/L ALT (12-78) U/L Alkaline Phosphatase (45-117) U/L Ammonia (11-32) mcmol/L Lactate Dehydrogenase (87-241) U/L Total Creatine Kinase (39-308) U/L CK-MB (CK-2) (0.5-3.6) ng/mL CK-MB (CK-2) % (0.0-4.0) % Troponin I (0.02-0.05) ng/mL Total Protein (6.4-8.2) g/dL Albumin (3.4-5.0) g/dL TSH (0.358-3.740) uIU/mL Free T4 (0.76-1.46) ng/dL Total T3 (60-181) ng/dL Urine Osmolality (300-1300) mosm/kg Ur Random Sodium meq/L Peritoneal RBC 9 H (0-0) /mm3 Periton Nuc Cells 81 H (0-10) /mm3 Periton Neutrophils 3 % Periton Lymphocytes 11 % Peritoneal Monocytes 35 % Periton Mesothelial 36 % Periton Histiocytes 15 % Peritoneal Tot Protein 0.3 gm/dL Peritoneal Albumin 0.2 g/dL Peritoneal LDH 26 U/L Peritoneal Glucose 153 mg/dL Nasal Screen MRSA (PCR) (Negative) Digoxin (0.8-2.0) ng/mL Blood Type Antibody Screen MTS Gel Crossmatch Blood Bank Comment Bld Prod Order Comment 09/22/18 09/22/18 09/22/18 Range/Units 18:49 21:21 23:35 WBC (4.0-11.0) th/mm3 RBC (4.50-5.90) mil/mm3 Hgb 7.7 L (13.0-17.0) gm/dL Hct (39.0-51.0) % MCV (80.0-100.0) fL MCH (27.0-34.0) pg MCHC (32.0-36.0) % RDW (11.6-17.2) % Plt Count (150-450) th/mm3 MPV (7.0-11.0) fL Prelim Diff (Auto) Neut % (Auto) (16.0-70.0) % Lymph % (Auto) (9.0-44.0) % Miller % (Auto) (0.0-8.0) % Eos % (Auto) (0.0-4.0) % Baso % (Auto) (0.0-2.0) % Neut # (Auto) (1.8-7.7) th/mm3 Lymph # (Auto) (1.0-4.8) th/mm3 Miller # (Auto) (0.0-0.9) th/mm3 Eos # (Auto) (0.0-0.4) th/mm3 Baso # (Auto) (0.0-0.2) th/mm3 WBC Differential Diff Scan Differential Comment Platelet Estimate (Normal) Platelet Morphology (Normal) Ovalocytes (None) Acanthocytes (Spur) (None) Keratocytes (None) PT (9.8-11.6) sec INR Ratio APTT (23.4-31.7) sec Fibrinogen (227-377) mg/dL Puncture Site Patient Temperature O2 Saturation (90-100) % ABG pH (7.380-7.420) ABG pCO2 (38-42) mmHg ABG pO2 (61-120) mmHG ABG HCO3 (22-26) mmol/L ABG O2 Content (12.0-20.0) Vol % ABG Base Excess (-2-2) mmol/L ABG Methemoglobin (0-2) % Thierno Test Hemoglobin (12.0-16.0) G/DL Carboxyhemoglobin (0-4) % O2 Delivery Device Vent Setting Inspired O2 % Critical Value Sodium (136-145) meq/L Potassium (3.5-5.1) meq/L Chloride (98-107) meq/L Carbon Dioxide (21.0-32.0) meq/L Anion Gap (5-15) meq/L BUN (7-18) mg/dL Creatinine (0.60-1.30) mg/dL Estimated GFR (>89) mL/min POC Glucose 131 H (68-110) mg/dl Random Glucose (74-106) mg/dL Lactic Acid (0.4-2.0) mmol/L Calcium (8.5-10.1) mg/dL Phosphorus (2.5-4.9) mg/dL Magnesium (1.5-2.5) mg/dL Total Bilirubin (0.2-1.0) mg/dL AST (15-37) U/L ALT (12-78) U/L Alkaline Phosphatase (45-117) U/L Ammonia (11-32) mcmol/L Lactate Dehydrogenase (87-241) U/L Total Creatine Kinase (39-308) U/L CK-MB (CK-2) (0.5-3.6) ng/mL CK-MB (CK-2) % (0.0-4.0) % Troponin I (0.02-0.05) ng/mL Total Protein (6.4-8.2) g/dL Albumin (3.4-5.0) g/dL TSH (0.358-3.740) uIU/mL Free T4 (0.76-1.46) ng/dL Total T3 (60-181) ng/dL Urine Osmolality 654 (300-1300) mosm/kg Ur Random Sodium meq/L Peritoneal RBC (0-0) /mm3 Periton Nuc Cells (0-10) /mm3 Periton Neutrophils % Periton Lymphocytes % Peritoneal Monocytes % Periton Mesothelial % Periton Histiocytes % Peritoneal Tot Protein gm/dL Peritoneal Albumin g/dL Peritoneal LDH U/L Peritoneal Glucose mg/dL Nasal Screen MRSA (PCR) (Negative) Digoxin (0.8-2.0) ng/mL Blood Type Antibody Screen MTS Gel Crossmatch Blood Bank Comment Bld Prod Order Comment 09/22/18 09/22/18 09/23/18 Range/Units 23:35 23:55 07:10 WBC 7.9 (4.0-11.0) th/mm3 RBC 2.71 L (4.50-5.90) mil/mm3 Hgb 7.3 L 7.7 L (13.0-17.0) gm/dL Hct 22.7 L (39.0-51.0) % MCV 83.8 (80.0-100.0) fL MCH 28.5 (27.0-34.0) pg MCHC 34.0 (32.0-36.0) % RDW 16.8 (11.6-17.2) % Plt Count 75 L (150-450) th/mm3 MPV 8.6 (7.0-11.0) fL Prelim Diff (Auto) Slide review pending Neut % (Auto) 83.1 H (16.0-70.0) % Lymph % (Auto) 7.2 L (9.0-44.0) % Miller % (Auto) 9.0 H (0.0-8.0) % Eos % (Auto) 0.3 (0.0-4.0) % Baso % (Auto) 0.4 (0.0-2.0) % Neut # (Auto) 6.6 (1.8-7.7) th/mm3 Lymph # (Auto) 0.6 L (1.0-4.8) th/mm3 Miller # (Auto) 0.7 (0.0-0.9) th/mm3 Eos # (Auto) 0.0 (0.0-0.4) th/mm3 Baso # (Auto) 0.0 (0.0-0.2) th/mm3 WBC Differential . Diff Scan Auto diff confirmed Differential Comment . Platelet Estimate Low L (Normal) Platelet Morphology Normal (Normal) Ovalocytes 1+ H (None) Acanthocytes (Spur) Occ H (None) Keratocytes (None) PT (9.8-11.6) sec INR Ratio APTT (23.4-31.7) sec Fibrinogen (227-377) mg/dL Puncture Site Patient Temperature O2 Saturation (90-100) % ABG pH (7.380-7.420) ABG pCO2 (38-42) mmHg ABG pO2 (61-120) mmHG ABG HCO3 (22-26) mmol/L ABG O2 Content (12.0-20.0) Vol % ABG Base Excess (-2-2) mmol/L ABG Methemoglobin (0-2) % Thierno Test Hemoglobin (12.0-16.0) G/DL Carboxyhemoglobin (0-4) % O2 Delivery Device Vent Setting Inspired O2 % Critical Value Sodium (136-145) meq/L Potassium (3.5-5.1) meq/L Chloride (98-107) meq/L Carbon Dioxide (21.0-32.0) meq/L Anion Gap (5-15) meq/L BUN (7-18) mg/dL Creatinine (0.60-1.30) mg/dL Estimated GFR (>89) mL/min POC Glucose (68-110) mg/dl Random Glucose (74-106) mg/dL Lactic Acid (0.4-2.0) mmol/L Calcium (8.5-10.1) mg/dL Phosphorus (2.5-4.9) mg/dL Magnesium (1.5-2.5) mg/dL Total Bilirubin (0.2-1.0) mg/dL AST (15-37) U/L ALT (12-78) U/L Alkaline Phosphatase (45-117) U/L Ammonia (11-32) mcmol/L Lactate Dehydrogenase (87-241) U/L Total Creatine Kinase (39-308) U/L CK-MB (CK-2) (0.5-3.6) ng/mL CK-MB (CK-2) % (0.0-4.0) % Troponin I (0.02-0.05) ng/mL Total Protein (6.4-8.2) g/dL Albumin (3.4-5.0) g/dL TSH (0.358-3.740) uIU/mL Free T4 (0.76-1.46) ng/dL Total T3 (60-181) ng/dL Urine Osmolality (300-1300) mosm/kg Ur Random Sodium Less than 5 meq/L Peritoneal RBC (0-0) /mm3 Periton Nuc Cells (0-10) /mm3 Periton Neutrophils % Periton Lymphocytes % Peritoneal Monocytes % Periton Mesothelial % Periton Histiocytes % Peritoneal Tot Protein gm/dL Peritoneal Albumin g/dL Peritoneal LDH U/L Peritoneal Glucose mg/dL Nasal Screen MRSA (PCR) (Negative) Digoxin (0.8-2.0) ng/mL Blood Type Antibody Screen MTS Gel Crossmatch Blood Bank Comment Bld Prod Order Comment 09/23/18 09/23/18 09/23/18 Range/Units 07:23 07:23 11:15 WBC (4.0-11.0) th/mm3 RBC (4.50-5.90) mil/mm3 Hgb 8.0 L (13.0-17.0) gm/dL Hct (39.0-51.0) % MCV (80.0-100.0) fL MCH (27.0-34.0) pg MCHC (32.0-36.0) % RDW (11.6-17.2) % Plt Count (150-450) th/mm3 MPV (7.0-11.0) fL Prelim Diff (Auto) Neut % (Auto) (16.0-70.0) % Lymph % (Auto) (9.0-44.0) % Miller % (Auto) (0.0-8.0) % Eos % (Auto) (0.0-4.0) % Baso % (Auto) (0.0-2.0) % Neut # (Auto) (1.8-7.7) th/mm3 Lymph # (Auto) (1.0-4.8) th/mm3 Miller # (Auto) (0.0-0.9) th/mm3 Eos # (Auto) (0.0-0.4) th/mm3 Baso # (Auto) (0.0-0.2) th/mm3 WBC Differential Diff Scan Differential Comment Platelet Estimate (Normal) Platelet Morphology (Normal) Ovalocytes (None) Acanthocytes (Spur) (None) Keratocytes (None) PT 15.2 H (9.8-11.6) sec INR 1.5 Ratio APTT (23.4-31.7) sec Fibrinogen (227-377) mg/dL Puncture Site Patient Temperature O2 Saturation (90-100) % ABG pH (7.380-7.420) ABG pCO2 (38-42) mmHg ABG pO2 (61-120) mmHG ABG HCO3 (22-26) mmol/L ABG O2 Content (12.0-20.0) Vol % ABG Base Excess (-2-2) mmol/L ABG Methemoglobin (0-2) % Thierno Test Hemoglobin (12.0-16.0) G/DL Carboxyhemoglobin (0-4) % O2 Delivery Device Vent Setting Inspired O2 % Critical Value Sodium 147 H (136-145) meq/L Potassium 4.4 (3.5-5.1) meq/L Chloride 114 H (98-107) meq/L Carbon Dioxide 24.4 (21.0-32.0) meq/L Anion Gap 9 (5-15) meq/L BUN 60 H (7-18) mg/dL Creatinine 1.98 H (0.60-1.30) mg/dL Estimated GFR 33 L (>89) mL/min POC Glucose (68-110) mg/dl Random Glucose 114 H (74-106) mg/dL Lactic Acid (0.4-2.0) mmol/L Calcium 7.9 L (8.5-10.1) mg/dL Phosphorus 2.8 (2.5-4.9) mg/dL Magnesium 1.9 (1.5-2.5) mg/dL Total Bilirubin 1.1 H (0.2-1.0) mg/dL AST 76 H (15-37) U/L ALT 35 (12-78) U/L Alkaline Phosphatase 63 (45-117) U/L Ammonia (11-32) mcmol/L Lactate Dehydrogenase (87-241) U/L Total Creatine Kinase (39-308) U/L CK-MB (CK-2) (0.5-3.6) ng/mL CK-MB (CK-2) % (0.0-4.0) % Troponin I (0.02-0.05) ng/mL Total Protein 5.1 L (6.4-8.2) g/dL Albumin 2.4 L (3.4-5.0) g/dL TSH (0.358-3.740) uIU/mL Free T4 (0.76-1.46) ng/dL Total T3 (60-181) ng/dL Urine Osmolality (300-1300) mosm/kg Ur Random Sodium meq/L Peritoneal RBC (0-0) /mm3 Periton Nuc Cells (0-10) /mm3 Periton Neutrophils % Periton Lymphocytes % Peritoneal Monocytes % Periton Mesothelial % Periton Histiocytes % Peritoneal Tot Protein gm/dL Peritoneal Albumin g/dL Peritoneal LDH U/L Peritoneal Glucose mg/dL Nasal Screen MRSA (PCR) (Negative) Digoxin (0.8-2.0) ng/mL Blood Type Antibody Screen MTS Gel Crossmatch Blood Bank Comment Bld Prod Order Comment 09/23/18 09/23/18 09/23/18 Range/Units 11:30 17:56 20:36 WBC (4.0-11.0) th/mm3 RBC (4.50-5.90) mil/mm3 Hgb 7.7 L (13.0-17.0) gm/dL Hct 22.8 L (39.0-51.0) % MCV (80.0-100.0) fL MCH (27.0-34.0) pg MCHC (32.0-36.0) % RDW (11.6-17.2) % Plt Count (150-450) th/mm3 MPV (7.0-11.0) fL Prelim Diff (Auto) Neut % (Auto) (16.0-70.0) % Lymph % (Auto) (9.0-44.0) % Miller % (Auto) (0.0-8.0) % Eos % (Auto) (0.0-4.0) % Baso % (Auto) (0.0-2.0) % Neut # (Auto) (1.8-7.7) th/mm3 Lymph # (Auto) (1.0-4.8) th/mm3 Miller # (Auto) (0.0-0.9) th/mm3 Eos # (Auto) (0.0-0.4) th/mm3 Baso # (Auto) (0.0-0.2) th/mm3 WBC Differential Diff Scan Differential Comment Platelet Estimate (Normal) Platelet Morphology (Normal) Ovalocytes (None) Acanthocytes (Spur) (None) Keratocytes (None) PT (9.8-11.6) sec INR Ratio APTT (23.4-31.7) sec Fibrinogen (227-377) mg/dL Puncture Site Patient Temperature O2 Saturation (90-100) % ABG pH (7.380-7.420) ABG pCO2 (38-42) mmHg ABG pO2 (61-120) mmHG ABG HCO3 (22-26) mmol/L ABG O2 Content (12.0-20.0) Vol % ABG Base Excess (-2-2) mmol/L ABG Methemoglobin (0-2) % Thierno Test Hemoglobin (12.0-16.0) G/DL Carboxyhemoglobin (0-4) % O2 Delivery Device Vent Setting Inspired O2 % Critical Value Sodium (136-145) meq/L Potassium (3.5-5.1) meq/L Chloride (98-107) meq/L Carbon Dioxide (21.0-32.0) meq/L Anion Gap (5-15) meq/L BUN (7-18) mg/dL Creatinine (0.60-1.30) mg/dL Estimated GFR (>89) mL/min POC Glucose 115 H 111 H (68-110) mg/dl Random Glucose (74-106) mg/dL Lactic Acid (0.4-2.0) mmol/L Calcium (8.5-10.1) mg/dL Phosphorus (2.5-4.9) mg/dL Magnesium (1.5-2.5) mg/dL Total Bilirubin (0.2-1.0) mg/dL AST (15-37) U/L ALT (12-78) U/L Alkaline Phosphatase (45-117) U/L Ammonia (11-32) mcmol/L Lactate Dehydrogenase (87-241) U/L Total Creatine Kinase (39-308) U/L CK-MB (CK-2) (0.5-3.6) ng/mL CK-MB (CK-2) % (0.0-4.0) % Troponin I (0.02-0.05) ng/mL Total Protein (6.4-8.2) g/dL Albumin (3.4-5.0) g/dL TSH (0.358-3.740) uIU/mL Free T4 (0.76-1.46) ng/dL Total T3 (60-181) ng/dL Urine Osmolality (300-1300) mosm/kg Ur Random Sodium meq/L Peritoneal RBC (0-0) /mm3 Periton Nuc Cells (0-10) /mm3 Periton Neutrophils % Periton Lymphocytes % Peritoneal Monocytes % Periton Mesothelial % Periton Histiocytes % Peritoneal Tot Protein gm/dL Peritoneal Albumin g/dL Peritoneal LDH U/L Peritoneal Glucose mg/dL Nasal Screen MRSA (PCR) (Negative) Digoxin (0.8-2.0) ng/mL Blood Type Antibody Screen MTS Gel Crossmatch Blood Bank Comment Bld Prod Order Comment 09/23/18 09/24/18 09/24/18 Range/Units 23:54 06:04 07:09 WBC 7.4 (4.0-11.0) th/mm3 RBC 2.55 L (4.50-5.90) mil/mm3 Hgb 7.6 L (13.0-17.0) gm/dL Hct 22.1 L (39.0-51.0) % MCV 86.5 (80.0-100.0) fL MCH 29.9 (27.0-34.0) pg MCHC 34.5 (32.0-36.0) % RDW 16.4 (11.6-17.2) % Plt Count 48 L D (150-450) th/mm3 MPV 10.0 (7.0-11.0) fL Prelim Diff (Auto) Slide review pending Neut % (Auto) 83.4 H (16.0-70.0) % Lymph % (Auto) 8.4 L (9.0-44.0) % Miller % (Auto) 7.3 (0.0-8.0) % Eos % (Auto) 0.7 (0.0-4.0) % Baso % (Auto) 0.2 (0.0-2.0) % Neut # (Auto) 6.2 (1.8-7.7) th/mm3 Lymph # (Auto) 0.6 L (1.0-4.8) th/mm3 Miller # (Auto) 0.5 (0.0-0.9) th/mm3 Eos # (Auto) 0.1 (0.0-0.4) th/mm3 Baso # (Auto) 0.0 (0.0-0.2) th/mm3 WBC Differential . Diff Scan Auto diff confirmed Differential Comment . Platelet Estimate Low L (Normal) Platelet Morphology Normal (Normal) Ovalocytes 1+ H (None) Acanthocytes (Spur) Occ H (None) Keratocytes Occ H (None) PT (9.8-11.6) sec INR Ratio APTT (23.4-31.7) sec Fibrinogen (227-377) mg/dL Puncture Site Patient Temperature O2 Saturation (90-100) % ABG pH (7.380-7.420) ABG pCO2 (38-42) mmHg ABG pO2 (61-120) mmHG ABG HCO3 (22-26) mmol/L ABG O2 Content (12.0-20.0) Vol % ABG Base Excess (-2-2) mmol/L ABG Methemoglobin (0-2) % Thierno Test Hemoglobin (12.0-16.0) G/DL Carboxyhemoglobin (0-4) % O2 Delivery Device Vent Setting Inspired O2 % Critical Value Sodium (136-145) meq/L Potassium (3.5-5.1) meq/L Chloride (98-107) meq/L Carbon Dioxide (21.0-32.0) meq/L Anion Gap (5-15) meq/L BUN (7-18) mg/dL Creatinine (0.60-1.30) mg/dL Estimated GFR (>89) mL/min POC Glucose 159 H 145 H (68-110) mg/dl Random Glucose (74-106) mg/dL Lactic Acid (0.4-2.0) mmol/L Calcium (8.5-10.1) mg/dL Phosphorus (2.5-4.9) mg/dL Magnesium (1.5-2.5) mg/dL Total Bilirubin (0.2-1.0) mg/dL AST (15-37) U/L ALT (12-78) U/L Alkaline Phosphatase (45-117) U/L Ammonia (11-32) mcmol/L Lactate Dehydrogenase (87-241) U/L Total Creatine Kinase (39-308) U/L CK-MB (CK-2) (0.5-3.6) ng/mL CK-MB (CK-2) % (0.0-4.0) % Troponin I (0.02-0.05) ng/mL Total Protein (6.4-8.2) g/dL Albumin (3.4-5.0) g/dL TSH (0.358-3.740) uIU/mL Free T4 (0.76-1.46) ng/dL Total T3 (60-181) ng/dL Urine Osmolality (300-1300) mosm/kg Ur Random Sodium meq/L Peritoneal RBC (0-0) /mm3 Periton Nuc Cells (0-10) /mm3 Periton Neutrophils % Periton Lymphocytes % Peritoneal Monocytes % Periton Mesothelial % Periton Histiocytes % Peritoneal Tot Protein gm/dL Peritoneal Albumin g/dL Peritoneal LDH U/L Peritoneal Glucose mg/dL Nasal Screen MRSA (PCR) (Negative) Digoxin (0.8-2.0) ng/mL Blood Type Antibody Screen MTS Gel Crossmatch Blood Bank Comment Bld Prod Order Comment 09/24/18 09/24/18 09/24/18 Range/Units 07:09 07:09 07:09 WBC (4.0-11.0) th/mm3 RBC (4.50-5.90) mil/mm3 Hgb (13.0-17.0) gm/dL Hct (39.0-51.0) % MCV (80.0-100.0) fL MCH (27.0-34.0) pg MCHC (32.0-36.0) % RDW (11.6-17.2) % Plt Count (150-450) th/mm3 MPV (7.0-11.0) fL Prelim Diff (Auto) Neut % (Auto) (16.0-70.0) % Lymph % (Auto) (9.0-44.0) % Miller % (Auto) (0.0-8.0) % Eos % (Auto) (0.0-4.0) % Baso % (Auto) (0.0-2.0) % Neut # (Auto) (1.8-7.7) th/mm3 Lymph # (Auto) (1.0-4.8) th/mm3 Miller # (Auto) (0.0-0.9) th/mm3 Eos # (Auto) (0.0-0.4) th/mm3 Baso # (Auto) (0.0-0.2) th/mm3 WBC Differential Diff Scan Differential Comment Platelet Estimate (Normal) Platelet Morphology (Normal) Ovalocytes (None) Acanthocytes (Spur) (None) Keratocytes (None) PT (9.8-11.6) sec INR Ratio APTT (23.4-31.7) sec Fibrinogen (227-377) mg/dL Puncture Site Patient Temperature O2 Saturation (90-100) % ABG pH (7.380-7.420) ABG pCO2 (38-42) mmHg ABG pO2 (61-120) mmHG ABG HCO3 (22-26) mmol/L ABG O2 Content (12.0-20.0) Vol % ABG Base Excess (-2-2) mmol/L ABG Methemoglobin (0-2) % Thierno Test Hemoglobin (12.0-16.0) G/DL Carboxyhemoglobin (0-4) % O2 Delivery Device Vent Setting Inspired O2 % Critical Value Sodium 148 H (136-145) meq/L Potassium 4.1 (3.5-5.1) meq/L Chloride 114 H (98-107) meq/L Carbon Dioxide 25.1 (21.0-32.0) meq/L Anion Gap 9 (5-15) meq/L BUN 64 H (7-18) mg/dL Creatinine 1.92 H (0.60-1.30) mg/dL Estimated GFR 34 L (>89) mL/min POC Glucose (68-110) mg/dl Random Glucose 138 H (74-106) mg/dL Lactic Acid (0.4-2.0) mmol/L Calcium 7.9 L (8.5-10.1) mg/dL Phosphorus 2.8 (2.5-4.9) mg/dL Magnesium 1.9 (1.5-2.5) mg/dL Total Bilirubin (0.2-1.0) mg/dL AST (15-37) U/L ALT (12-78) U/L Alkaline Phosphatase (45-117) U/L Ammonia 109 H (11-32) mcmol/L Lactate Dehydrogenase (87-241) U/L Total Creatine Kinase (39-308) U/L CK-MB (CK-2) (0.5-3.6) ng/mL CK-MB (CK-2) % (0.0-4.0) % Troponin I (0.02-0.05) ng/mL Total Protein (6.4-8.2) g/dL Albumin (3.4-5.0) g/dL TSH (0.358-3.740) uIU/mL Free T4 (0.76-1.46) ng/dL Total T3 (60-181) ng/dL Urine Osmolality (300-1300) mosm/kg Ur Random Sodium meq/L Peritoneal RBC (0-0) /mm3 Periton Nuc Cells (0-10) /mm3 Periton Neutrophils % Periton Lymphocytes % Peritoneal Monocytes % Periton Mesothelial % Periton Histiocytes % Peritoneal Tot Protein gm/dL Peritoneal Albumin g/dL Peritoneal LDH U/L Peritoneal Glucose mg/dL Nasal Screen MRSA (PCR) (Negative) Digoxin (0.8-2.0) ng/mL Blood Type Antibody Screen MTS Gel Crossmatch Blood Bank Comment Bld Prod Order Comment 09/24/18 09/24/18 09/24/18 Range/Units 07:09 10:55 11:50 WBC (4.0-11.0) th/mm3 RBC (4.50-5.90) mil/mm3 Hgb (13.0-17.0) gm/dL Hct (39.0-51.0) % MCV (80.0-100.0) fL MCH (27.0-34.0) pg MCHC (32.0-36.0) % RDW (11.6-17.2) % Plt Count (150-450) th/mm3 MPV (7.0-11.0) fL Prelim Diff (Auto) Neut % (Auto) (16.0-70.0) % Lymph % (Auto) (9.0-44.0) % Miller % (Auto) (0.0-8.0) % Eos % (Auto) (0.0-4.0) % Baso % (Auto) (0.0-2.0) % Neut # (Auto) (1.8-7.7) th/mm3 Lymph # (Auto) (1.0-4.8) th/mm3 Miller # (Auto) (0.0-0.9) th/mm3 Eos # (Auto) (0.0-0.4) th/mm3 Baso # (Auto) (0.0-0.2) th/mm3 WBC Differential Diff Scan Differential Comment Platelet Estimate (Normal) Platelet Morphology (Normal) Ovalocytes (None) Acanthocytes (Spur) (None) Keratocytes (None) PT (9.8-11.6) sec INR Ratio APTT (23.4-31.7) sec Fibrinogen (227-377) mg/dL Puncture Site Patient Temperature O2 Saturation (90-100) % ABG pH (7.380-7.420) ABG pCO2 (38-42) mmHg ABG pO2 (61-120) mmHG ABG HCO3 (22-26) mmol/L ABG O2 Content (12.0-20.0) Vol % ABG Base Excess (-2-2) mmol/L ABG Methemoglobin (0-2) % Thierno Test Hemoglobin (12.0-16.0) G/DL Carboxyhemoglobin (0-4) % O2 Delivery Device Vent Setting Inspired O2 % Critical Value Sodium (136-145) meq/L Potassium (3.5-5.1) meq/L Chloride (98-107) meq/L Carbon Dioxide (21.0-32.0) meq/L Anion Gap (5-15) meq/L BUN (7-18) mg/dL Creatinine (0.60-1.30) mg/dL Estimated GFR (>89) mL/min POC Glucose 146 H (68-110) mg/dl Random Glucose (74-106) mg/dL Lactic Acid 2.1 H (0.4-2.0) mmol/L Calcium (8.5-10.1) mg/dL Phosphorus (2.5-4.9) mg/dL Magnesium (1.5-2.5) mg/dL Total Bilirubin (0.2-1.0) mg/dL AST (15-37) U/L ALT (12-78) U/L Alkaline Phosphatase (45-117) U/L Ammonia (11-32) mcmol/L Lactate Dehydrogenase (87-241) U/L Total Creatine Kinase 1370 H (39-308) U/L CK-MB (CK-2) 3.4 (0.5-3.6) ng/mL CK-MB (CK-2) % 0.2 (0.0-4.0) % Troponin I 0.02 (0.02-0.05) ng/mL Total Protein (6.4-8.2) g/dL Albumin (3.4-5.0) g/dL TSH 0.163 L (0.358-3.740) uIU/mL Free T4 (0.76-1.46) ng/dL Total T3 (60-181) ng/dL Urine Osmolality (300-1300) mosm/kg Ur Random Sodium meq/L Peritoneal RBC (0-0) /mm3 Periton Nuc Cells (0-10) /mm3 Periton Neutrophils % Periton Lymphocytes % Peritoneal Monocytes % Periton Mesothelial % Periton Histiocytes % Peritoneal Tot Protein gm/dL Peritoneal Albumin g/dL Peritoneal LDH U/L Peritoneal Glucose mg/dL Nasal Screen MRSA (PCR) (Negative) Digoxin (0.8-2.0) ng/mL Blood Type Antibody Screen MTS Gel Crossmatch Blood Bank Comment Bld Prod Order Comment 09/24/18 09/24/18 09/24/18 Range/Units 14:42 17:38 19:11 WBC (4.0-11.0) th/mm3 RBC (4.50-5.90) mil/mm3 Hgb 7.3 L (13.0-17.0) gm/dL Hct (39.0-51.0) % MCV (80.0-100.0) fL MCH (27.0-34.0) pg MCHC (32.0-36.0) % RDW (11.6-17.2) % Plt Count (150-450) th/mm3 MPV (7.0-11.0) fL Prelim Diff (Auto) Neut % (Auto) (16.0-70.0) % Lymph % (Auto) (9.0-44.0) % Miller % (Auto) (0.0-8.0) % Eos % (Auto) (0.0-4.0) % Baso % (Auto) (0.0-2.0) % Neut # (Auto) (1.8-7.7) th/mm3 Lymph # (Auto) (1.0-4.8) th/mm3 Miller # (Auto) (0.0-0.9) th/mm3 Eos # (Auto) (0.0-0.4) th/mm3 Baso # (Auto) (0.0-0.2) th/mm3 WBC Differential Diff Scan Differential Comment Platelet Estimate (Normal) Platelet Morphology (Normal) Ovalocytes (None) Acanthocytes (Spur) (None) Keratocytes (None) PT (9.8-11.6) sec INR Ratio APTT (23.4-31.7) sec Fibrinogen (227-377) mg/dL Puncture Site Patient Temperature O2 Saturation (90-100) % ABG pH (7.380-7.420) ABG pCO2 (38-42) mmHg ABG pO2 (61-120) mmHG ABG HCO3 (22-26) mmol/L ABG O2 Content (12.0-20.0) Vol % ABG Base Excess (-2-2) mmol/L ABG Methemoglobin (0-2) % Thierno Test Hemoglobin (12.0-16.0) G/DL Carboxyhemoglobin (0-4) % O2 Delivery Device Vent Setting Inspired O2 % Critical Value Sodium (136-145) meq/L Potassium (3.5-5.1) meq/L Chloride (98-107) meq/L Carbon Dioxide (21.0-32.0) meq/L Anion Gap (5-15) meq/L BUN (7-18) mg/dL Creatinine (0.60-1.30) mg/dL Estimated GFR (>89) mL/min POC Glucose 125 H (68-110) mg/dl Random Glucose (74-106) mg/dL Lactic Acid (0.4-2.0) mmol/L Calcium (8.5-10.1) mg/dL Phosphorus (2.5-4.9) mg/dL Magnesium (1.5-2.5) mg/dL Total Bilirubin (0.2-1.0) mg/dL AST (15-37) U/L ALT (12-78) U/L Alkaline Phosphatase (45-117) U/L Ammonia (11-32) mcmol/L Lactate Dehydrogenase (87-241) U/L Total Creatine Kinase (39-308) U/L CK-MB (CK-2) (0.5-3.6) ng/mL CK-MB (CK-2) % (0.0-4.0) % Troponin I (0.02-0.05) ng/mL Total Protein (6.4-8.2) g/dL Albumin (3.4-5.0) g/dL TSH (0.358-3.740) uIU/mL Free T4 (0.76-1.46) ng/dL Total T3 (60-181) ng/dL Urine Osmolality (300-1300) mosm/kg Ur Random Sodium meq/L Peritoneal RBC (0-0) /mm3 Periton Nuc Cells (0-10) /mm3 Periton Neutrophils % Periton Lymphocytes % Peritoneal Monocytes % Periton Mesothelial % Periton Histiocytes % Peritoneal Tot Protein gm/dL Peritoneal Albumin g/dL Peritoneal LDH U/L Peritoneal Glucose mg/dL Nasal Screen MRSA (PCR) (Negative) Digoxin (0.8-2.0) ng/mL Blood Type A Positive Antibody Screen Negative MTS Gel Crossmatch See Detail Blood Bank Comment Bld Prod Order Comment 09/24/18 09/25/18 09/25/18 Range/Units 21:30 00:41 05:13 WBC 5.9 (4.0-11.0) th/mm3 RBC 2.63 L (4.50-5.90) mil/mm3 Hgb 7.7 L 7.7 L (13.0-17.0) gm/dL Hct 22.8 L (39.0-51.0) % MCV 86.7 (80.0-100.0) fL MCH 29.3 (27.0-34.0) pg MCHC 33.8 (32.0-36.0) % RDW 16.2 (11.6-17.2) % Plt Count 54 L (150-450) th/mm3 MPV 9.6 (7.0-11.0) fL Prelim Diff (Auto) Slide review pending Neut % (Auto) 84.8 H (16.0-70.0) % Lymph % (Auto) 4.9 L (9.0-44.0) % Miller % (Auto) 8.7 H (0.0-8.0) % Eos % (Auto) 1.3 (0.0-4.0) % Baso % (Auto) 0.3 (0.0-2.0) % Neut # (Auto) 5.0 (1.8-7.7) th/mm3 Lymph # (Auto) 0.3 L (1.0-4.8) th/mm3 Miller # (Auto) 0.5 (0.0-0.9) th/mm3 Eos # (Auto) 0.1 (0.0-0.4) th/mm3 Baso # (Auto) 0.0 (0.0-0.2) th/mm3 WBC Differential . Diff Scan Auto diff confirmed Differential Comment . Platelet Estimate Low L (Normal) Platelet Morphology Normal (Normal) Ovalocytes 1+ H (None) Acanthocytes (Spur) Occ H (None) Keratocytes Occ H (None) PT (9.8-11.6) sec INR Ratio APTT (23.4-31.7) sec Fibrinogen (227-377) mg/dL Puncture Site Patient Temperature O2 Saturation (90-100) % ABG pH (7.380-7.420) ABG pCO2 (38-42) mmHg ABG pO2 (61-120) mmHG ABG HCO3 (22-26) mmol/L ABG O2 Content (12.0-20.0) Vol % ABG Base Excess (-2-2) mmol/L ABG Methemoglobin (0-2) % Thierno Test Hemoglobin (12.0-16.0) G/DL Carboxyhemoglobin (0-4) % O2 Delivery Device Vent Setting Inspired O2 % Critical Value Sodium (136-145) meq/L Potassium (3.5-5.1) meq/L Chloride (98-107) meq/L Carbon Dioxide (21.0-32.0) meq/L Anion Gap (5-15) meq/L BUN (7-18) mg/dL Creatinine (0.60-1.30) mg/dL Estimated GFR (>89) mL/min POC Glucose 144 H (68-110) mg/dl Random Glucose (74-106) mg/dL Lactic Acid (0.4-2.0) mmol/L Calcium (8.5-10.1) mg/dL Phosphorus (2.5-4.9) mg/dL Magnesium (1.5-2.5) mg/dL Total Bilirubin (0.2-1.0) mg/dL AST (15-37) U/L ALT (12-78) U/L Alkaline Phosphatase (45-117) U/L Ammonia (11-32) mcmol/L Lactate Dehydrogenase (87-241) U/L Total Creatine Kinase (39-308) U/L CK-MB (CK-2) (0.5-3.6) ng/mL CK-MB (CK-2) % (0.0-4.0) % Troponin I (0.02-0.05) ng/mL Total Protein (6.4-8.2) g/dL Albumin (3.4-5.0) g/dL TSH (0.358-3.740) uIU/mL Free T4 (0.76-1.46) ng/dL Total T3 (60-181) ng/dL Urine Osmolality (300-1300) mosm/kg Ur Random Sodium meq/L Peritoneal RBC (0-0) /mm3 Periton Nuc Cells (0-10) /mm3 Periton Neutrophils % Periton Lymphocytes % Peritoneal Monocytes % Periton Mesothelial % Periton Histiocytes % Peritoneal Tot Protein gm/dL Peritoneal Albumin g/dL Peritoneal LDH U/L Peritoneal Glucose mg/dL Nasal Screen MRSA (PCR) (Negative) Digoxin (0.8-2.0) ng/mL Blood Type Antibody Screen MTS Gel Crossmatch Blood Bank Comment Bld Prod Order Comment 09/25/18 09/25/18 09/25/18 Range/Units 05:13 05:13 05:13 WBC (4.0-11.0) th/mm3 RBC (4.50-5.90) mil/mm3 Hgb (13.0-17.0) gm/dL Hct (39.0-51.0) % MCV (80.0-100.0) fL MCH (27.0-34.0) pg MCHC (32.0-36.0) % RDW (11.6-17.2) % Plt Count (150-450) th/mm3 MPV (7.0-11.0) fL Prelim Diff (Auto) Neut % (Auto) (16.0-70.0) % Lymph % (Auto) (9.0-44.0) % Miller % (Auto) (0.0-8.0) % Eos % (Auto) (0.0-4.0) % Baso % (Auto) (0.0-2.0) % Neut # (Auto) (1.8-7.7) th/mm3 Lymph # (Auto) (1.0-4.8) th/mm3 Miller # (Auto) (0.0-0.9) th/mm3 Eos # (Auto) (0.0-0.4) th/mm3 Baso # (Auto) (0.0-0.2) th/mm3 WBC Differential Diff Scan Differential Comment Platelet Estimate (Normal) Platelet Morphology (Normal) Ovalocytes (None) Acanthocytes (Spur) (None) Keratocytes (None) PT (9.8-11.6) sec INR Ratio APTT 45.0 H (23.4-31.7) sec Fibrinogen 163 L (227-377) mg/dL Puncture Site Patient Temperature O2 Saturation (90-100) % ABG pH (7.380-7.420) ABG pCO2 (38-42) mmHg ABG pO2 (61-120) mmHG ABG HCO3 (22-26) mmol/L ABG O2 Content (12.0-20.0) Vol % ABG Base Excess (-2-2) mmol/L ABG Methemoglobin (0-2) % Thierno Test Hemoglobin (12.0-16.0) G/DL Carboxyhemoglobin (0-4) % O2 Delivery Device Vent Setting Inspired O2 % Critical Value Sodium 149 H (136-145) meq/L Potassium 3.7 (3.5-5.1) meq/L Chloride 116 H (98-107) meq/L Carbon Dioxide 24.4 (21.0-32.0) meq/L Anion Gap 9 (5-15) meq/L BUN 58 H (7-18) mg/dL Creatinine 1.67 H (0.60-1.30) mg/dL Estimated GFR 40 L (>89) mL/min POC Glucose (68-110) mg/dl Random Glucose 138 H (74-106) mg/dL Lactic Acid (0.4-2.0) mmol/L Calcium 7.7 L (8.5-10.1) mg/dL Phosphorus 2.4 L (2.5-4.9) mg/dL Magnesium 2.0 (1.5-2.5) mg/dL Total Bilirubin 1.0 (0.2-1.0) mg/dL AST 128 H (15-37) U/L ALT 48 (12-78) U/L Alkaline Phosphatase 63 (45-117) U/L Ammonia 84 H (11-32) mcmol/L Lactate Dehydrogenase (87-241) U/L Total Creatine Kinase (39-308) U/L CK-MB (CK-2) (0.5-3.6) ng/mL CK-MB (CK-2) % (0.0-4.0) % Troponin I (0.02-0.05) ng/mL Total Protein 5.2 L (6.4-8.2) g/dL Albumin 2.4 L (3.4-5.0) g/dL TSH (0.358-3.740) uIU/mL Free T4 (0.76-1.46) ng/dL Total T3 (60-181) ng/dL Urine Osmolality (300-1300) mosm/kg Ur Random Sodium meq/L Peritoneal RBC (0-0) /mm3 Periton Nuc Cells (0-10) /mm3 Periton Neutrophils % Periton Lymphocytes % Peritoneal Monocytes % Periton Mesothelial % Periton Histiocytes % Peritoneal Tot Protein gm/dL Peritoneal Albumin g/dL Peritoneal LDH U/L Peritoneal Glucose mg/dL Nasal Screen MRSA (PCR) (Negative) Digoxin 0.7 L (0.8-2.0) ng/mL Blood Type Antibody Screen MTS Gel Crossmatch Blood Bank Comment Bld Prod Order Comment 09/25/18 09/25/18 09/25/18 Range/Units 11:34 15:33 15:33 WBC (4.0-11.0) th/mm3 RBC (4.50-5.90) mil/mm3 Hgb 9.1 L (13.0-17.0) gm/dL Hct 27.8 L (39.0-51.0) % MCV (80.0-100.0) fL MCH (27.0-34.0) pg MCHC (32.0-36.0) % RDW (11.6-17.2) % Plt Count (150-450) th/mm3 MPV (7.0-11.0) fL Prelim Diff (Auto) Neut % (Auto) (16.0-70.0) % Lymph % (Auto) (9.0-44.0) % Miller % (Auto) (0.0-8.0) % Eos % (Auto) (0.0-4.0) % Baso % (Auto) (0.0-2.0) % Neut # (Auto) (1.8-7.7) th/mm3 Lymph # (Auto) (1.0-4.8) th/mm3 Miller # (Auto) (0.0-0.9) th/mm3 Eos # (Auto) (0.0-0.4) th/mm3 Baso # (Auto) (0.0-0.2) th/mm3 WBC Differential Diff Scan Differential Comment Platelet Estimate (Normal) Platelet Morphology (Normal) Ovalocytes (None) Acanthocytes (Spur) (None) Keratocytes (None) PT (9.8-11.6) sec INR Ratio APTT (23.4-31.7) sec Fibrinogen (227-377) mg/dL Puncture Site Patient Temperature O2 Saturation (90-100) % ABG pH (7.380-7.420) ABG pCO2 (38-42) mmHg ABG pO2 (61-120) mmHG ABG HCO3 (22-26) mmol/L ABG O2 Content (12.0-20.0) Vol % ABG Base Excess (-2-2) mmol/L ABG Methemoglobin (0-2) % Thierno Test Hemoglobin (12.0-16.0) G/DL Carboxyhemoglobin (0-4) % O2 Delivery Device Vent Setting Inspired O2 % Critical Value Sodium (136-145) meq/L Potassium (3.5-5.1) meq/L Chloride (98-107) meq/L Carbon Dioxide (21.0-32.0) meq/L Anion Gap (5-15) meq/L BUN (7-18) mg/dL Creatinine (0.60-1.30) mg/dL Estimated GFR (>89) mL/min POC Glucose 167 H (68-110) mg/dl Random Glucose (74-106) mg/dL Lactic Acid (0.4-2.0) mmol/L Calcium (8.5-10.1) mg/dL Phosphorus (2.5-4.9) mg/dL Magnesium (1.5-2.5) mg/dL Total Bilirubin (0.2-1.0) mg/dL AST (15-37) U/L ALT (12-78) U/L Alkaline Phosphatase (45-117) U/L Ammonia (11-32) mcmol/L Lactate Dehydrogenase (87-241) U/L Total Creatine Kinase (39-308) U/L CK-MB (CK-2) (0.5-3.6) ng/mL CK-MB (CK-2) % (0.0-4.0) % Troponin I (0.02-0.05) ng/mL Total Protein (6.4-8.2) g/dL Albumin (3.4-5.0) g/dL TSH (0.358-3.740) uIU/mL Free T4 0.82 (0.76-1.46) ng/dL Total T3 (60-181) ng/dL Urine Osmolality (300-1300) mosm/kg Ur Random Sodium meq/L Peritoneal RBC (0-0) /mm3 Periton Nuc Cells (0-10) /mm3 Periton Neutrophils % Periton Lymphocytes % Peritoneal Monocytes % Periton Mesothelial % Periton Histiocytes % Peritoneal Tot Protein gm/dL Peritoneal Albumin g/dL Peritoneal LDH U/L Peritoneal Glucose mg/dL Nasal Screen MRSA (PCR) (Negative) Digoxin (0.8-2.0) ng/mL Blood Type Antibody Screen MTS Gel Crossmatch Blood Bank Comment Bld Prod Order Comment 09/25/18 09/25/18 09/26/18 Range/Units 15:33 17:29 00:01 WBC (4.0-11.0) th/mm3 RBC (4.50-5.90) mil/mm3 Hgb (13.0-17.0) gm/dL Hct (39.0-51.0) % MCV (80.0-100.0) fL MCH (27.0-34.0) pg MCHC (32.0-36.0) % RDW (11.6-17.2) % Plt Count (150-450) th/mm3 MPV (7.0-11.0) fL Prelim Diff (Auto) Neut % (Auto) (16.0-70.0) % Lymph % (Auto) (9.0-44.0) % Miller % (Auto) (0.0-8.0) % Eos % (Auto) (0.0-4.0) % Baso % (Auto) (0.0-2.0) % Neut # (Auto) (1.8-7.7) th/mm3 Lymph # (Auto) (1.0-4.8) th/mm3 Miller # (Auto) (0.0-0.9) th/mm3 Eos # (Auto) (0.0-0.4) th/mm3 Baso # (Auto) (0.0-0.2) th/mm3 WBC Differential Diff Scan Differential Comment Platelet Estimate (Normal) Platelet Morphology (Normal) Ovalocytes (None) Acanthocytes (Spur) (None) Keratocytes (None) PT (9.8-11.6) sec INR Ratio APTT (23.4-31.7) sec Fibrinogen (227-377) mg/dL Puncture Site Patient Temperature O2 Saturation (90-100) % ABG pH (7.380-7.420) ABG pCO2 (38-42) mmHg ABG pO2 (61-120) mmHG ABG HCO3 (22-26) mmol/L ABG O2 Content (12.0-20.0) Vol % ABG Base Excess (-2-2) mmol/L ABG Methemoglobin (0-2) % Thierno Test Hemoglobin (12.0-16.0) G/DL Carboxyhemoglobin (0-4) % O2 Delivery Device Vent Setting Inspired O2 % Critical Value Sodium (136-145) meq/L Potassium (3.5-5.1) meq/L Chloride (98-107) meq/L Carbon Dioxide (21.0-32.0) meq/L Anion Gap (5-15) meq/L BUN (7-18) mg/dL Creatinine (0.60-1.30) mg/dL Estimated GFR (>89) mL/min POC Glucose 149 H 125 H (68-110) mg/dl Random Glucose (74-106) mg/dL Lactic Acid (0.4-2.0) mmol/L Calcium (8.5-10.1) mg/dL Phosphorus (2.5-4.9) mg/dL Magnesium (1.5-2.5) mg/dL Total Bilirubin (0.2-1.0) mg/dL AST (15-37) U/L ALT (12-78) U/L Alkaline Phosphatase (45-117) U/L Ammonia (11-32) mcmol/L Lactate Dehydrogenase (87-241) U/L Total Creatine Kinase (39-308) U/L CK-MB (CK-2) (0.5-3.6) ng/mL CK-MB (CK-2) % (0.0-4.0) % Troponin I (0.02-0.05) ng/mL Total Protein (6.4-8.2) g/dL Albumin (3.4-5.0) g/dL TSH (0.358-3.740) uIU/mL Free T4 (0.76-1.46) ng/dL Total T3 26 L (60-181) ng/dL Urine Osmolality (300-1300) mosm/kg Ur Random Sodium meq/L Peritoneal RBC (0-0) /mm3 Periton Nuc Cells (0-10) /mm3 Periton Neutrophils % Periton Lymphocytes % Peritoneal Monocytes % Periton Mesothelial % Periton Histiocytes % Peritoneal Tot Protein gm/dL Peritoneal Albumin g/dL Peritoneal LDH U/L Peritoneal Glucose mg/dL Nasal Screen MRSA (PCR) (Negative) Digoxin (0.8-2.0) ng/mL Blood Type Antibody Screen MTS Gel Crossmatch Blood Bank Comment Bld Prod Order Comment 09/26/18 09/26/18 09/26/18 Range/Units 05:50 06:13 06:13 WBC 7.1 (4.0-11.0) th/mm3 RBC 3.18 L (4.50-5.90) mil/mm3 Hgb 9.4 L (13.0-17.0) gm/dL Hct 27.3 L (39.0-51.0) % MCV 86.0 (80.0-100.0) fL MCH 29.5 (27.0-34.0) pg MCHC 34.3 (32.0-36.0) % RDW 16.8 (11.6-17.2) % Plt Count 56 L (150-450) th/mm3 MPV 8.5 (7.0-11.0) fL Prelim Diff (Auto) Slide review pending Neut % (Auto) 80.3 H (16.0-70.0) % Lymph % (Auto) 5.9 L (9.0-44.0) % Miller % (Auto) 10.8 H (0.0-8.0) % Eos % (Auto) 2.7 (0.0-4.0) % Baso % (Auto) 0.3 (0.0-2.0) % Neut # (Auto) 5.7 (1.8-7.7) th/mm3 Lymph # (Auto) 0.4 L (1.0-4.8) th/mm3 Miller # (Auto) 0.8 (0.0-0.9) th/mm3 Eos # (Auto) 0.2 (0.0-0.4) th/mm3 Baso # (Auto) 0.0 (0.0-0.2) th/mm3 WBC Differential . Diff Scan Auto diff confirmed Differential Comment . Platelet Estimate Low L (Normal) Platelet Morphology Normal (Normal) Ovalocytes 1+ H (None) Acanthocytes (Spur) Occ H (None) Keratocytes Occ H (None) PT 14.8 H (9.8-11.6) sec INR 1.5 Ratio APTT (23.4-31.7) sec Fibrinogen (227-377) mg/dL Puncture Site Patient Temperature O2 Saturation (90-100) % ABG pH (7.380-7.420) ABG pCO2 (38-42) mmHg ABG pO2 (61-120) mmHG ABG HCO3 (22-26) mmol/L ABG O2 Content (12.0-20.0) Vol % ABG Base Excess (-2-2) mmol/L ABG Methemoglobin (0-2) % Thierno Test Hemoglobin (12.0-16.0) G/DL Carboxyhemoglobin (0-4) % O2 Delivery Device Vent Setting Inspired O2 % Critical Value Sodium (136-145) meq/L Potassium (3.5-5.1) meq/L Chloride (98-107) meq/L Carbon Dioxide (21.0-32.0) meq/L Anion Gap (5-15) meq/L BUN (7-18) mg/dL Creatinine (0.60-1.30) mg/dL Estimated GFR (>89) mL/min POC Glucose 99 (68-110) mg/dl Random Glucose (74-106) mg/dL Lactic Acid (0.4-2.0) mmol/L Calcium (8.5-10.1) mg/dL Phosphorus (2.5-4.9) mg/dL Magnesium (1.5-2.5) mg/dL Total Bilirubin (0.2-1.0) mg/dL AST (15-37) U/L ALT (12-78) U/L Alkaline Phosphatase (45-117) U/L Ammonia (11-32) mcmol/L Lactate Dehydrogenase (87-241) U/L Total Creatine Kinase (39-308) U/L CK-MB (CK-2) (0.5-3.6) ng/mL CK-MB (CK-2) % (0.0-4.0) % Troponin I (0.02-0.05) ng/mL Total Protein (6.4-8.2) g/dL Albumin (3.4-5.0) g/dL TSH (0.358-3.740) uIU/mL Free T4 (0.76-1.46) ng/dL Total T3 (60-181) ng/dL Urine Osmolality (300-1300) mosm/kg Ur Random Sodium meq/L Peritoneal RBC (0-0) /mm3 Periton Nuc Cells (0-10) /mm3 Periton Neutrophils % Periton Lymphocytes % Peritoneal Monocytes % Periton Mesothelial % Periton Histiocytes % Peritoneal Tot Protein gm/dL Peritoneal Albumin g/dL Peritoneal LDH U/L Peritoneal Glucose mg/dL Nasal Screen MRSA (PCR) (Negative) Digoxin (0.8-2.0) ng/mL Blood Type Antibody Screen MTS Gel Crossmatch Blood Bank Comment Bld Prod Order Comment 09/26/18 09/26/18 Range/Units 06:13 06:13 WBC (4.0-11.0) th/mm3 RBC (4.50-5.90) mil/mm3 Hgb (13.0-17.0) gm/dL Hct (39.0-51.0) % MCV (80.0-100.0) fL MCH (27.0-34.0) pg MCHC (32.0-36.0) % RDW (11.6-17.2) % Plt Count (150-450) th/mm3 MPV (7.0-11.0) fL Prelim Diff (Auto) Neut % (Auto) (16.0-70.0) % Lymph % (Auto) (9.0-44.0) % Miller % (Auto) (0.0-8.0) % Eos % (Auto) (0.0-4.0) % Baso % (Auto) (0.0-2.0) % Neut # (Auto) (1.8-7.7) th/mm3 Lymph # (Auto) (1.0-4.8) th/mm3 Miller # (Auto) (0.0-0.9) th/mm3 Eos # (Auto) (0.0-0.4) th/mm3 Baso # (Auto) (0.0-0.2) th/mm3 WBC Differential Diff Scan Differential Comment Platelet Estimate (Normal) Platelet Morphology (Normal) Ovalocytes (None) Acanthocytes (Spur) (None) Keratocytes (None) PT (9.8-11.6) sec INR Ratio APTT (23.4-31.7) sec Fibrinogen (227-377) mg/dL Puncture Site Patient Temperature O2 Saturation (90-100) % ABG pH (7.380-7.420) ABG pCO2 (38-42) mmHg ABG pO2 (61-120) mmHG ABG HCO3 (22-26) mmol/L ABG O2 Content (12.0-20.0) Vol % ABG Base Excess (-2-2) mmol/L ABG Methemoglobin (0-2) % Thierno Test Hemoglobin (12.0-16.0) G/DL Carboxyhemoglobin (0-4) % O2 Delivery Device Vent Setting Inspired O2 % Critical Value Sodium 149 H (136-145) meq/L Potassium 3.9 (3.5-5.1) meq/L Chloride 116 H (98-107) meq/L Carbon Dioxide 25.3 (21.0-32.0) meq/L Anion Gap 8 (5-15) meq/L BUN 46 H (7-18) mg/dL Creatinine 1.37 H (0.60-1.30) mg/dL Estimated GFR 51 L (>89) mL/min POC Glucose (68-110) mg/dl Random Glucose 125 H (74-106) mg/dL Lactic Acid (0.4-2.0) mmol/L Calcium 8.0 L (8.5-10.1) mg/dL Phosphorus 1.8 L (2.5-4.9) mg/dL Magnesium 2.0 (1.5-2.5) mg/dL Total Bilirubin 1.8 H (0.2-1.0) mg/dL AST 103 H (15-37) U/L ALT 49 (12-78) U/L Alkaline Phosphatase 73 (45-117) U/L Ammonia 91 H (11-32) mcmol/L Lactate Dehydrogenase (87-241) U/L Total Creatine Kinase (39-308) U/L CK-MB (CK-2) (0.5-3.6) ng/mL CK-MB (CK-2) % (0.0-4.0) % Troponin I (0.02-0.05) ng/mL Total Protein 5.6 L (6.4-8.2) g/dL Albumin 2.6 L (3.4-5.0) g/dL TSH (0.358-3.740) uIU/mL Free T4 (0.76-1.46) ng/dL Total T3 (60-181) ng/dL Urine Osmolality (300-1300) mosm/kg Ur Random Sodium meq/L Peritoneal RBC (0-0) /mm3 Periton Nuc Cells (0-10) /mm3 Periton Neutrophils % Periton Lymphocytes % Peritoneal Monocytes % Periton Mesothelial % Periton Histiocytes % Peritoneal Tot Protein gm/dL Peritoneal Albumin g/dL Peritoneal LDH U/L Peritoneal Glucose mg/dL Nasal Screen MRSA (PCR) (Negative) Digoxin (0.8-2.0) ng/mL Blood Type Antibody Screen MTS Gel Crossmatch Blood Bank Comment Bld Prod Order Comment Imaging Data Radiologist's impression: Chest X-Ray 09/21/18 21:44 CONCLUSION: Endotracheal tube in good position. Bibasal airspace disease. No prior study for comparison. Paracentesis CT 09/22/18 14:08 CONCLUSION: 1. Uncomplicated CT Guided paracentesis. Abdomen/Bladder Ultrasound 09/23/18 00:00 CONCLUSION: 1. Echogenic kidneys consistent with medical renal disease. 2. Cirrhotic liver with ascites. 3. Small right pleural effusion, likely hepatic hydrothorax. Chest X-Ray 09/24/18 04:00 CONCLUSION: 1. Stable elevation of the right hemidiaphragm. Mild atelectatic changes in the right lung base. 2. Stable position of endotracheal tube. Chest X-Ray 09/26/18 06:00 CONCLUSION: Clear lungs. Discharge Plan Discharge Disposition Patient Disposition: ED Admit(ED Internal Use Only) Discharge Order Discharge Orders: ED Use Only Admit Order (Routine); Ordered 09/21/18 Ordered By: Ronda Leal Physicians Team ED Provider: Ronda Leal Primary Care Provider: [facility],Physician 's Attending Provider: Annita Vuong Other Providers: Lilly Balbuena ED Status: Left Department Discharge Information Discharge Date/Time: 09/21/18 20:30
[2018-09-21 20:11] LABS: Alkaline Phosphatase 76 U/L (45-117); Total Protein 5.2 g/dL (6.4-8.2)
[2018-09-21] MEDS ORDERED: Calcium Chloride Inj 1 GM/10 ML Syringe IV.CONT ONE (20:35)
--- NOTE | 2018-09-21 21:23 | GIPROC ---
[facility] [address] [facility]. [facility], [address] EGD PROCEDURE REPORT EXAM DATE: 09/21/2018 PATIENT NAME: Jacek Awad MR #: [id number] BIRTHDATE: 1940 ATTENDING: Yvette Beverly MD ORDER #: [id number] SUIT ATTENDANT: Dayana Beckford and Miriam Ball STATUS: inpatient INDICATIONS: The patient is a 78 yr old male here for an EGD due to melena, hematemesis, and Cirrhosis PROCEDURE PERFORMED: EGD w/ band ligation of varices MEDICATIONS: None and Per Anesthesia. TOPICAL ANESTHETIC: CONSENT: The patient understands the risks and benefits of the procedure and understands that these risks include, but are not limited to: sedation, allergic reaction, infection, perforation and/or bleeding. Alternative means of evaluation and treatment include, among others: physical exam, x-rays, and/or surgical intervention. The patient elects to proceed with this endoscopic procedure. medical equipment was checked for proper function. Hand hygiene and appropriate measures for infection prevention was taken. After the risks, benefits and alternatives of the procedure were thoroughly explained, Informed consent was verified, confirmed and timeout was successfully executed by the treatment team. The patient was anesthetized with topical anesthesia and the Pentax [id number] endoscope was introduced through the mouth and advanced to the second portion of the duodenum. Retroflexed views revealed large blood clot The gastroscope was then slowly withdrawn and removed. 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 The varices were not bleeding. There was evidence of prior scarring. STOMACH: Large blood clot/blood in the fundus. Antrum normal. DUODENUM: Blood in duodenum. ADVERSE EVENTS: There were no complications. IMPRESSIONS: 1. Large blood clot/blood in the fundus. Antrum normal 2. Blood in duodenum 3. Retroflexed views revealed large blood clot RECOMMENDATIONS: Keep intubated, FFP/Platelets/ IV Octreotide/Protonix PATIENT CONDITION: stable DISPOSITION: Inpatient REPEAT EXAM: Return as needed for EGD Yvette Beverly MD eSigned: Yvette Beverly MD 09/21/2018 9:23 PM cc: PATIENT NAME: Jacek Awad MR#: [id number]
[2018-09-21] MEDS ORDERED: Propofol 1000 mg/100 ml Inj 1,000 MG/100 ML BOTTLE ONE (21:28)
--- NOTE | 2018-09-21 21:56 | MB ---
cc: Yvette Beverly MD, Cheryl M MD Zulfiqar, Hassan MD DATE: 09/21/2018 REASON FOR CONSULTATION: Acute GI bleed, liver cirrhosis, liver cancer. HISTORY OF PRESENT ILLNESS: Mr. Awad is a 78-year-old with previous history of liver cirrhosis and liver cancer. Apparently, he has had treatment in [place] with chemoradiation and chemoembolization. Starting early this afternoon, he started to have hematemesis. Apparently, he has had a couple of episodes. He passed out after his last episode, was rushed to the emergency room where he was fluid resuscitated and GI consult was called. I was able to see him fairly quickly, recommended IV octreotide, IV Protonix, packed RBCs, platelets and FFP transfusion. Emergent EGD is being scheduled. The patient is not able to provide much history. History obtained from the daughter. PAST MEDICAL HISTORY: Liver cirrhosis, hepatitis C, hepatocellular carcinoma, kidney injury. PAST SURGICAL HISTORY: Chemoembolization, radiotherapy. Unclear if he has had previous EGD, colonoscopies. SOCIAL HISTORY: Previous history of alcohol and tobacco. ACTIVE MEDICATIONS: At this time, octreotide, vitamin K, Protonix. LABORATORY DATA: Labs reveal hemoglobin of 8, platelets 127. INR 1.6. Creatinine 1.92. PHYSICAL EXAMINATION: GENERAL: Reveals an ill-appearing man, in no apparent distress. VITAL SIGNS: Stable. HEAD AND NECK: Anicteric sclerae. LUNGS: Bilateral air entry with rales. ABDOMEN: Distended, ascites. CENTRAL NERVOUS SYSTEM: Nonfocal. RECTAL: Deferred at this time. IMPRESSION: 1. Liver cirrhosis. 2. Hepatocellular carcinoma. 3. Hepatitis C. 4. Portal hypertension. RECOMMENDATIONS: IV fluid, IV octreotide, IV Protonix, 2 units of packed RBCs, 1 packet of platelets, 2 units of FFP. Emergent endoscopy is being scheduled. The patient is to be monitored in the [facility]. I have discussed the case with Dr. Vuong. Thank you for this referral. Yvette Beverly MD HZ/rw , 09:27 PM , 09:35 PM
[2018-09-21] MEDS: Pantoprazole Inj 80 MG in Sodium Chlor 0.9% Inj 100 ML IV.CONT SCH (22:10)
[2018-09-21 22:11] LABS: ABG Base Excess -1.8 mmol/L (-2-2); ABG PCO2 47 mmHg (38-42); ABG PO2 97 mmHG (61-120)
[2018-09-21] MEDS: Propofol 1000 mg/100 ml Inj 1,000 MG/100 ML BOTTLE IV.CONT PRN (22:11)
[2018-09-21] MEDS: Octreotide Inj 500 MCG in Sodium Chlor 0.9% Inj 500 ML IV.CONT SCH (22:12)
[2018-09-21] MEDS: Senna/Docusate Sodium 8.6/50 MG Tablet PO SCH (22:12)
[2018-09-21] MEDS: Dextrose 5%/Lactated Ringer's 1,000 ML IV.CONT SCH (22:12)
--- NOTE | 2018-09-21 22:12 | XR ---
EXAM DATE: 09/21/2018 10:09 PM EST AGE/SEX: 78 years / Male INDICATIONS: Shortness of breath. CLINICAL DATA: This is the patient's initial encounter. Patient reports that signs and symptoms have been present for 1 day and indicates a pain score of Nonresponsive. MEDICAL/SURGICAL HISTORY: Non-responsive. Non-responsive. COMPARISON: No prior exams available for comparison. FINDINGS: Endotracheal tube in good position. Basilar airspace disease present. No effusion. No pneumothorax. CONCLUSION: Endotracheal tube in good position. Bibasal airspace disease. No prior study for comparison. Electronically signed by: Cresencio Morales MD Board Certified Radiologist 09/21/2018 10:11 PM EST
[2018-09-22 00:31] LABS: Hematocrit 26.6 % (39.0-51.0); Hemoglobin 9.1 gm/dL (13.0-17.0); Mean Corpuscular HGB Conc 34.1 % (32.0-36.0); Mean Platelet Volume 8.8 fL (7.0-11.0); Platelet Count 101 th/mm3 (150-450); Red Blood Count 3.13 mil/mm3 (4.50-5.90); Red Cell Distribution Width 16.5 % (11.6-17.2); White Blood Count 8.2 th/mm3 (4.0-11.0)
[2018-09-22 00:33] LABS: INR 1.4 Ratio; Prothrombin Time 14.5 sec (9.8-11.6)
[2018-09-22] MEDS: Clotrimazole 1% Cream 15 GM Tube TOPICAL SCH ×3 (02:31→21:52)
[2018-09-22] MEDS: Oral Hygiene Kit OROPHARYNG SCH ×4 (03:29→15:52)
[2018-09-22] MEDS: Chlorhexidine Gluconate 2% 1 Pack (2 Cloths) TOPICAL SCH (03:29)
[2018-09-22] MEDS: Propofol 1000 mg/100 ml Inj 1,000 MG/100 ML BOTTLE IV.CONT PRN (03:34)
[2018-09-22] MEDS ORDERED: Chlorhexidine Gluconate 2% 1 Pack (2 Cloths) TOPICAL PRN (04:00)
[2018-09-22] MEDS: Pantoprazole Inj 80 MG in Sodium Chlor 0.9% Inj 100 ML IV.CONT SCH ×3 (04:56→14:13)
[2018-09-22 05:00] LABS: Activated Partial Thrombo Time 32.8 sec (23.4-31.7); INR 1.4 Ratio; Prothrombin Time 14.5 sec (9.8-11.6)
[2018-09-22 05:23] LABS: Alanine Aminotransferase 34 U/L (12-78); Albumin 2.1 g/dL (3.4-5.0); Alkaline Phosphatase 68 U/L (45-117); Anion Gap 8 meq/L (5-15); Aspartate Aminotransferase 40 U/L (15-37); Blood Urea Nitrogen 52 mg/dL (7-18); Carbon Dioxide 25.4 meq/L (21.0-32.0); Chloride 110 meq/L (98-107); Glomerular Filtration Rate 37 mL/min (>89); Glucose,Random 177 mg/dL (74-106); Magnesium 1.6 mg/dL (1.5-2.5); Phosphorus 3.3 mg/dL (2.5-4.9); Potassium 4.7 meq/L (3.5-5.1); Sodium 143 meq/L (136-145); Total Protein 4.9 g/dL (6.4-8.2)
[2018-09-22] MEDS: Dextrose 5%/Lactated Ringer's 1,000 ML IV.CONT SCH ×3 (05:48→21:57)
[2018-09-22] MEDS: Chlorhexidine 0.12% Oral Kit 15 ML UDC OROPHARYNG SCH ×2 (08:30→08:36)
[2018-09-22] MEDS: Senna/Docusate Sodium 8.6/50 MG Tablet PO SCH ×2 (08:37→21:54)
[2018-09-22] MEDS: Octreotide Inj 500 MCG in Sodium Chlor 0.9% Inj 500 ML IV.CONT SCH ×2 (08:44→19:36)
[2018-09-22] MEDS: fentaNYL 10 mcg/mL Premix Drip 2,500 MCG/250 ML BAG IV.SIG PRN (09:05)
[2018-09-22] MEDS: Midazolam 100 MG/100 ML Inj 100 MG/100 ML BAG IV.CONT PRN (09:34)
--- NOTE | 2018-09-22 09:48 | P.PNCC ---
Subjective Subjective Remarks/Hospital Course: 09/22: Overnight the patient underwent EGD 5 columns of esophageal varices was located but no bleeding was noted per large blood clot was noted in the fundus and the duodenum 0 hemoglobin and hematocrits continue last hemoglobin noted to be 7.9. The patient continues on Protonix and octreotide infusions currently. Patient was noted to have a low normal blood pressure on propofol infusion this is been discontinued. Versed and fentanyl infusions initiated to maintain ventilator synchrony. Patient noted to have acute kidney injury creatinine downtrending slightly peer nephrology has been consulted appreciate recommendations per patient with known ascites last known paracentesis approximately 4 months ago peer INR within normal limits invasive radiology has been consulted for possible paracentesis. Objective Vital Signs / I&O: Vital Signs 09/21/18 19:07 09/21/18 19:25 09/21/18 19:26 Temperature 97.8 F Pulse Rate 89 88 Respiratory Rate 22 Blood Pressure 128/58 L Pulse Oximetry 97 98 97 09/21/18 19:38 09/21/18 19:59 09/21/18 20:00 Temperature 98.1 F 98 F Pulse Rate 87 88 86 Respiratory Rate 18 21 22 Blood Pressure 112/59 L 130/58 L 119/62 Pulse Oximetry 98 97 98 09/21/18 20:25 09/21/18 21:28 09/21/18 21:30 Temperature 98 F 98.3 F Pulse Rate 82 95 H 92 H Respiratory Rate 22 12 15 Blood Pressure 121/60 121/68 134/73 Pulse Oximetry 98 97 97 09/21/18 21:45 09/21/18 22:00 09/21/18 22:15 Temperature 98.5 F Pulse Rate 88 91 H 88 Respiratory Rate 12 12 12 Blood Pressure 140/77 148/76 H 153/77 H Pulse Oximetry 96 96 95 09/21/18 22:20 09/21/18 22:25 09/21/18 23:00 Temperature 97.8 F Pulse Rate 91 H Respiratory Rate 12 12 25 H Blood Pressure 158/69 H Pulse Oximetry 97 96 96 09/22/18 00:00 09/22/18 00:21 09/22/18 00:30 Temperature 97.9 F Pulse Rate 79 77 78 Respiratory Rate 15 14 14 Blood Pressure 139/75 111/64 Pulse Oximetry 98 98 98 09/22/18 00:45 09/22/18 01:00 09/22/18 01:15 Temperature Pulse Rate 80 77 77 Respiratory Rate 19 15 13 Blood Pressure 133/75 106/60 102/62 Pulse Oximetry 99 98 98 09/22/18 01:30 09/22/18 01:45 09/22/18 02:00 Temperature Pulse Rate 75 75 74 Respiratory Rate 12 13 13 Blood Pressure 99/62 L 96/59 L 115/61 Pulse Oximetry 99 99 99 09/22/18 02:15 09/22/18 02:30 09/22/18 02:45 Temperature Pulse Rate 73 72 71 Respiratory Rate 13 13 13 Blood Pressure 100/63 96/60 L 88/53 L Pulse Oximetry 99 99 99 09/22/18 03:00 09/22/18 03:15 09/22/18 03:30 Temperature Pulse Rate 70 70 68 Respiratory Rate 12 18 22 Blood Pressure 90/54 L 93/56 L 91/56 L Pulse Oximetry 99 99 100 09/22/18 03:45 09/22/18 03:53 09/22/18 04:00 Temperature Pulse Rate 67 76 Respiratory Rate 18 15 22 Blood Pressure 91/55 L 93/58 L Pulse Oximetry 99 100 98 09/22/18 04:15 09/22/18 04:30 09/22/18 04:45 Temperature 98.2 F Pulse Rate 69 66 73 Respiratory Rate 15 18 21 Blood Pressure 97/57 L 89/52 L 78/51 L Pulse Oximetry 98 99 99 09/22/18 05:00 09/22/18 05:15 09/22/18 05:30 Temperature Pulse Rate 165 H 68 100 H Respiratory Rate 24 25 H 30 H Blood Pressure 114/61 108/59 L 99/57 L Pulse Oximetry 99 99 98 09/22/18 05:45 09/22/18 06:00 09/22/18 06:15 Temperature Pulse Rate 68 68 69 Respiratory Rate 14 17 24 Blood Pressure 113/59 L 104/61 101/56 L Pulse Oximetry 99 99 99 09/22/18 06:30 09/22/18 06:45 09/22/18 07:00 Temperature Pulse Rate 68 72 69 Respiratory Rate 24 25 H 15 Blood Pressure 92/54 L 98/60 L 90/51 L Pulse Oximetry 99 99 99 09/22/18 07:57 Temperature Pulse Rate Respiratory Rate 18 Blood Pressure Pulse Oximetry Intake & Output 09/21/18 09/22/18 09/22/18 18:59 06:59 18:59 Intake Total 4180 / 4180 148.5 / 148.5 Output Total 270 / 270 10 / 10 Balance 3910 / 3910 138.5 / 138.5 Weight 84.5 kg Intake: IV 2780 / 2780 148.5 / 148.5 D5W/LR Inj 1,000 ML @ 125 mls/ 1000 / 1000 hr IV.CONT .Q8H [facility] Rx#: [id number] SandoSTATIN Inj 500 MCG In NS 352 / 352 148.5 / 148.5 Inj 500 ML @ 50 MCG/HR 50.05 mls/hr IV.CONT .Q10H [facility] Rx#: [id number] Protonix Inj 80 MG In NS Inj 142 / 142 100 ML @ 10 mls/hr IV.CONT Q10H [facility] Rx#:[id number] Diprivan 1000 mg/100 ml Inj 1, 100 / 100 000 mg In 100 ml @ 5 MCG/KG/MIN 2.177 mls/hr IV.CONT TITRATE PRN Rx#:[id number] Protonix Inj 80 MG In NS Inj 35 35 / 35 ML @ 420 mls/hr IV.SIG BOLUS ONE Rx#:[id number] Vitamin K Inj 10 MG In NS Inj 51 / 51 50 ML @ 102 mls/hr IV.SIG ONCE ONE Rx#:[id number] NS Inj 1,000 ML @ Wide Open IV. 1000 / 1000 SIG BOLUS ONE Rx#:[id number] Rocephin Inj 1,000 MG In NS Inj 100 / 100 100 ML @ 200 mls/hr IV.SIG Q24H [facility] Rx#:[id number] Anesthesia Amount 1000 / 1000 Intake (Blood Product) Amt 400 / 400 Rbc As-3 Leukoreduced Unit 0 / 0 [id number] Rbc As-3 Leukoreduced Unit 400 / 400 [id number] Output: Urine Amount (Catheter) 270 / 270 10 / 10 Indwelling Temp Sensing 270 / 270 10 / 10 Catheter Other: # Bowel Movements 0 Weight On Admission 86 kg Result Diagrams: 09/22/18 04:26 09/22/18 04:26 Other Results: Laboratory Results WBC 8.2 th/mm3 (4.0-11.0) 09/22/18 00:13 RBC 3.13 mil/mm3 (4.50-5.90) L 09/22/18 00:13 Hgb 7.9 gm/dL (13.0-17.0) L 09/22/18 04:26 Hct 26.6 % (39.0-51.0) L 09/22/18 00:13 MCV 85.0 fL (80.0-100.0) 09/22/18 00:13 MCH 29.0 pg (27.0-34.0) 09/22/18 00:13 MCHC 34.1 % (32.0-36.0) 09/22/18 00:13 RDW 16.5 % (11.6-17.2) 09/22/18 00:13 Plt Count 101 th/mm3 (150-450) L 09/22/18 00:13 MPV 8.8 fL (7.0-11.0) 09/22/18 00:13 Neut % (Auto) 67.5 % (16.0-70.0) 09/21/18 19:20 Lymph % (Auto) 9.7 % (9.0-44.0) 09/21/18 19:20 Starke % (Auto) 17.0 % (0.0-8.0) H 09/21/18 19:20 Eos % (Auto) 5.1 % (0.0-4.0) H 09/21/18 19:20 Baso % (Auto) 0.7 % (0.0-2.0) 09/21/18 19:20 Neut # (Auto) 6.3 th/mm3 (1.8-7.7) 09/21/18 19:20 Lymph # (Auto) 0.9 th/mm3 (1.0-4.8) L 09/21/18 19:20 Starke # (Auto) 1.6 th/mm3 (0.0-0.9) H 09/21/18 19:20 Eos # (Auto) 0.5 th/mm3 (0.0-0.4) H 09/21/18 19:20 Baso # (Auto) 0.1 th/mm3 (0.0-0.2) 09/21/18 19:20 WBC Differential . 09/21/18 19:20 Differential Comment Auto diff final 09/21/18 19:20 PT 14.5 sec (9.8-11.6) H 09/22/18 04:26 INR 1.4 Ratio 09/22/18 04:26 APTT 32.8 sec (23.4-31.7) H 09/22/18 04:26 Fibrinogen 115 mg/dL (227-377) L 09/22/18 00:13 Puncture Site Left radial 09/21/18 21:59 Patient Temperature 98.6 09/21/18 21:59 O2 Saturation 94 % (90-100) 09/21/18 21:59 ABG pH 7.32 (7.380-7.420) L 09/21/18 21:59 ABG pCO2 47 mmHg (38-42) H 09/21/18 21:59 ABG pO2 97 mmHG (61-120) 09/21/18 21:59 ABG HCO3 23 mmol/L (22-26) 09/21/18 21:59 ABG O2 Content 12.1 Vol % (12.0-20.0) 09/21/18 21:59 ABG Base Excess -1.8 mmol/L (-2-2) 09/21/18 21:59 ABG Methemoglobin 1.5 % (0-2) 09/21/18 21:59 Thierno Test Present 09/21/18 21:59 Hemoglobin 9.0 G/DL (12.0-16.0) L 09/21/18 21:59 Carboxyhemoglobin 1.1 % (0-4) 09/21/18 21:59 O2 Delivery Device Ventilator 09/21/18 21:59 Vent Setting Prvc/ac 09/21/18 21:59 Inspired O2 50 % 09/21/18 21:59 Critical Value No 09/21/18 21:59 Sodium 143 meq/L (136-145) 09/22/18 04:26 Potassium 4.7 meq/L (3.5-5.1) D 09/22/18 04:26 Chloride 110 meq/L (98-107) H 09/22/18 04:26 Carbon Dioxide 25.4 meq/L (21.0-32.0) 09/22/18 04:26 Anion Gap 8 meq/L (5-15) 09/22/18 04:26 BUN 52 mg/dL (7-18) H 09/22/18 04:26 Creatinine 1.80 mg/dL (0.60-1.30) H 09/22/18 04:26 Estimated GFR 37 mL/min (>89) L 09/22/18 04:26 Random Glucose 177 mg/dL (74-106) H 09/22/18 04:26 Lactic Acid 3.0 mmol/L (0.4-2.0) H 09/22/18 04:26 Calcium 8.0 mg/dL (8.5-10.1) L 09/22/18 04:26 Phosphorus 3.3 mg/dL (2.5-4.9) 09/22/18 04:26 Magnesium 1.6 mg/dL (1.5-2.5) 09/22/18 04:26 Total Bilirubin 1.1 mg/dL (0.2-1.0) H 09/22/18 04:26 AST 40 U/L (15-37) H 09/22/18 04:26 ALT 34 U/L (12-78) 09/22/18 04:26 Alkaline Phosphatase 68 U/L (45-117) 09/22/18 04:26 Ammonia 43 mcmol/L (11-32) H 09/21/18 19:20 Total Protein 4.9 g/dL (6.4-8.2) L 09/22/18 04:26 Albumin 2.1 g/dL (3.4-5.0) L 09/22/18 04:26 Nasal Screen MRSA (PCR) Not detected (Negative) 09/21/18 22:30 Blood Type A Positive 09/21/18 19:20 Antibody Screen Negative 09/21/18 19:20 MTS Gel Crossmatch See Detail 09/21/18 19:26 Blood Bank Comment 09/21/18 19:20 Bld Prod Order Comment 09/21/18 19:29 Impressions Chest X-Ray 09/21/18 21:44 CONCLUSION: Endotracheal tube in good position. Bibasal airspace disease. No prior study for comparison. Objective Remarks: GENERAL: This is a well-developed well-nourished chronically ill-appearing, currently intubated and sedated SKIN: Warm and dry. Ecchymosis noted bilateral forearm HEAD: Atraumatic. Normocephalic. EYES: Pupils equal and round. No scleral icterus. No injection or drainage. ENT: No nasal bleeding or discharge. Mucous membranes pink and moist. NECK: Trachea midline. No JVD. CARDIOVASCULAR: Normal rate, regular rhythm. RESPIRATORY: No accessory muscle use. Clear to auscultation. Breath sounds equal bilaterally. GASTROINTESTINAL: Abdomen soft, umbilical hernia noted reducible, distended. No guarding. Noted abdominal rash with multiple pinpoint lesions back and legs MUSCULOSKELETAL: Extremities without clubbing, cyanosis, or edema. No obvious deformities. Noted 1+ bilateral pedal edema NEUROLOGICAL: Intubated and sedated. RASS -2. No gross focal/sensory deficits. Follows commands in all 4 extremities. Procedures: 09/21- EGD Assessment and Plan - Problem List (1) Acute blood loss anemia Code(s): D62 - Acute posthemorrhagic anemia Status: Acute (2) Hematemesis Code(s): K92.0 - Hematemesis Status: Acute (3) Cirrhosis Code(s): K74.60 - Unspecified cirrhosis of liver Status: Chronic (4) Hx of hepatitis C Code(s): Z86.19 - Personal history of other infectious and parasitic diseases Status: Chronic (5) MART (acute kidney injury) Code(s): N17.9 - Acute kidney failure, unspecified Status: Acute (6) Thrombocytopenia Code(s): D69.6 - Thrombocytopenia, unspecified Status: Acute - Assessment and Plan Plan: NEURO: History of stroke with residual aphasia Hyperammonemia No NGT so unable to give po lactulose/rifaximin currently. Morphine prn pain. Versed and fentanyl infusions to maintain ventilator synchrony RASS -2. RESP: Acute respiratory failure To remain intubated for airway protection while observing for ongoing UGI bleeding. PRVC. Vent Bundle CXR clear with satisfactory ETT position. Duo nebs PRN CV: Essential hypertension On Norvasc at home. Will hold. D5 LR 125 ml/hr. GI: Upper GI bleed secondary to esophageal varices now s/p banding Hx Hep C Cirrhosis Hepatocellular carcinoma s/p TACE procedure Recurrent ascites Protonix drip Octreotide drip Serial hemoglobin and hematocrit GI consulted emergently, Dr. Beverly. Esophageal varices banded. Reportedly no active bleeding but unable to rule out gastric varices due to presence of clots in the stomach. No NGT. Consult IR for possible paracentesis FEN/RENAL: ?MART (unknown baseline creatinine) Oliguria Burnett in place. Monitor I/O. Monitor electrolytes and replace as indicated per ICU electrolyte replacement protocol. IVF as per above. Albumin 12.5 twice daily Nephrology consulted ID: Analisa for SBP prophylaxis. Tinea corporis Clotrimazole 1% cream bid. HEME: Acute blood loss anemia Thrombocytopenia Coagulopathy Transfuse 2 units of emergency release blood. Transfuse 1 unit FFP and 1 unit of platelets per ED physician. Vitamin K 10 mg IV now. Follow-up coags and fibrinogen and serial hemoglobin. Transfuse as indicated based on hemodynamics or for Hgb <7, plts <50, fibrinogen <100. Monitor serial hemoglobin ENDO: Euglycemic PROPH: SCDs for DVT prophylaxis. Pharmacologic DVT prophylaxis is contraindicated. Protonix drip as per above ACCESS: [address]. Patient is critically ill with acute hematemesis and blood loss anemia who is at high risk for further deterioration or . FULL CODE My billing statement This patient remains critically ill with one or more organ systems which are or may become a threat to life. I have spent in excess of 38 minutes discontinuously in the care and management of this patient. This time is exclusive of procedures, and includes, but is not limited to, evaluation of the patient, review of the medical record, discussions with family, consultants, nursing staff, or respiratory therapy, and documentation in the medical record. Code Status: FULL Discussed Condition With: Family at bedside. Discussed with [employer] at bedside
[2018-09-22] MEDS: Albumin Human 25% Inj 50 ML IV.SIG SCH ×2 (11:08→21:54)
[2018-09-22 11:31] LABS: Total Protein 5.3 g/dL (6.4-8.2)
[2018-09-22 19:12] LABS: Total Protein,Peritoneal Fluid 0.3 gm/dL
--- NOTE | 2018-09-22 19:14 | P.PNGI ---
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 Status post banding of esophageal varices Physical Exam Vital signs: Vital Signs 09/21/18 19:25 09/21/18 19:26 09/21/18 19:38 Temperature 98.1 F Pulse Rate 88 87 Respiratory Rate 18 Blood Pressure 112/59 L Pulse Oximetry 98 97 98 09/21/18 19:59 09/21/18 20:00 09/21/18 20:25 Temperature 98 F 98 F Pulse Rate 88 86 82 Respiratory Rate 21 22 22 Blood Pressure 130/58 L 119/62 121/60 Pulse Oximetry 97 98 98 09/21/18 21:28 09/21/18 21:30 09/21/18 21:45 Temperature 98.3 F Pulse Rate 95 H 92 H 88 Respiratory Rate 12 15 12 Blood Pressure 121/68 134/73 140/77 Pulse Oximetry 97 97 96 09/21/18 22:00 09/21/18 22:15 09/21/18 22:20 Temperature 98.5 F Pulse Rate 91 H 88 Respiratory Rate 12 12 12 Blood Pressure 148/76 H 153/77 H Pulse Oximetry 96 95 97 09/21/18 22:25 09/21/18 23:00 09/22/18 00:00 Temperature 97.8 F 97.9 F Pulse Rate 91 H 79 Respiratory Rate 12 25 H 15 Blood Pressure 158/69 H 139/75 Pulse Oximetry 96 96 98 09/22/18 00:21 09/22/18 00:30 09/22/18 00:45 Temperature Pulse Rate 77 78 80 Respiratory Rate 14 14 19 Blood Pressure 111/64 133/75 Pulse Oximetry 98 98 99 09/22/18 01:00 09/22/18 01:15 09/22/18 01:30 Temperature Pulse Rate 77 77 75 Respiratory Rate 15 13 12 Blood Pressure 106/60 102/62 99/62 L Pulse Oximetry 98 98 99 09/22/18 01:45 09/22/18 02:00 09/22/18 02:15 Temperature Pulse Rate 75 74 73 Respiratory Rate 13 13 13 Blood Pressure 96/59 L 115/61 100/63 Pulse Oximetry 99 99 99 09/22/18 02:30 09/22/18 02:45 09/22/18 03:00 Temperature Pulse Rate 72 71 70 Respiratory Rate 13 13 12 Blood Pressure 96/60 L 88/53 L 90/54 L Pulse Oximetry 99 99 99 09/22/18 03:15 09/22/18 03:30 09/22/18 03:45 Temperature Pulse Rate 70 68 67 Respiratory Rate 18 22 18 Blood Pressure 93/56 L 91/56 L 91/55 L Pulse Oximetry 99 100 99 09/22/18 03:53 09/22/18 04:00 09/22/18 04:15 Temperature 98.2 F Pulse Rate 76 69 Respiratory Rate 15 22 15 Blood Pressure 93/58 L 97/57 L Pulse Oximetry 100 98 98 09/22/18 04:30 09/22/18 04:45 09/22/18 05:00 Temperature Pulse Rate 66 73 165 H Respiratory Rate 18 21 24 Blood Pressure 89/52 L 78/51 L 114/61 Pulse Oximetry 99 99 99 09/22/18 05:15 09/22/18 05:30 09/22/18 05:45 Temperature Pulse Rate 68 100 H 68 Respiratory Rate 25 H 30 H 14 Blood Pressure 108/59 L 99/57 L 113/59 L Pulse Oximetry 99 98 99 09/22/18 06:00 09/22/18 06:15 09/22/18 06:30 Temperature Pulse Rate 68 69 68 Respiratory Rate 17 24 24 Blood Pressure 104/61 101/56 L 92/54 L Pulse Oximetry 99 99 99 09/22/18 06:45 09/22/18 07:00 09/22/18 07:57 Temperature Pulse Rate 72 69 Respiratory Rate 25 H 15 18 Blood Pressure 98/60 L 90/51 L Pulse Oximetry 99 99 09/22/18 11:47 09/22/18 16:15 09/22/18 18:47 Temperature Pulse Rate Respiratory Rate 13 14 Blood Pressure Pulse Oximetry 97 100 96 Intake & Output 09/22/18 09/22/18 09/23/18 06:59 18:59 06:59 Intake Total 4180 / 4180 1276.5 / 1276.5 Output Total 270 / 270 10 / 10 Balance 3910 / 3910 1266.5 / 1266.5 Weight 84.5 kg Intake: IV 2780 / 2780 1276.5 / 1276.5 D5W/LR Inj 1,000 ML @ 125 mls/ 1000 / 1000 1000 / 1000 hr IV.CONT .Q8H [facility] Rx#: [id number] SandoSTATIN Inj 500 MCG In NS 352 / 352 148.5 / 148.5 Inj 500 ML @ 50 MCG/HR 50.05 mls/hr IV.CONT .Q10H [facility] Rx#: [id number] Protonix Inj 80 MG In NS Inj 142 / 142 78 / 78 100 ML @ 10 mls/hr IV.CONT Q10H [facility] Rx#:[id number] Diprivan 1000 mg/100 ml Inj 1, 100 / 100 000 mg In 100 ml @ 5 MCG/KG/MIN 2.177 mls/hr IV.CONT TITRATE PRN Rx#:[id number] Flexbumin 25% Inj 50 ML @ 60 50 / 50 mls/hr IV.SIG Q12H [facility] Rx#: [id number] Protonix Inj 80 MG In NS Inj 35 35 / 35 ML @ 420 mls/hr IV.SIG BOLUS ONE Rx#:[id number] Vitamin K Inj 10 MG In NS Inj 51 / 51 50 ML @ 102 mls/hr IV.SIG ONCE ONE Rx#:[id number] NS Inj 1,000 ML @ Wide Open IV. 1000 / 1000 SIG BOLUS ONE Rx#:[id number] Rocephin Inj 1,000 MG In NS Inj 100 / 100 100 ML @ 200 mls/hr IV.SIG Q24H [facility] Rx#:[id number] Anesthesia Amount 1000 / 1000 Intake (Blood Product) Amt 400 / 400 Rbc As-3 Leukoreduced Unit 0 / 0 [id number] Rbc As-3 Leukoreduced Unit 400 / 400 [id number] Output: Urine Amount (Catheter) 270 / 270 10 / 10 Indwelling Temp Sensing 270 / 270 10 / 10 Catheter Other: # Bowel Movements 0 Weight On Admission 86 kg - Constitutional chronically ill appearing Comments: Orally intubated and mechanically ventilated - Routine HEENT Exam Head: Present: normocephalic - Routine Neck Exam Present: trachea midline - Routine Respiratory Exam Present: patient mechanically ventilated - Routine Cardiovascular Exam Present: RRR - Routine Abdominal Exam Present: soft, normoactive bowel sounds. Absent: tenderness, distended - Routine Extremities Exam Absent: edema - Routine Skin Exam Present: dry, warm - Routine Psychiatric Exam Comments: Intubated and sedated - Urinary Catheter Management Indwelling Temp Sensing Catheter Cath placed during this visit: yes Urethral indwelling: Yes Reason for continuing: Hourly intake/output Insertion date: 09/21/18 Insertion time: 20:00 Results - Labs CBC & Chem 7: 09/22/18 10:40 09/22/18 04:26 Laboratory Results - last 24 hr 09/21/18 09/21/18 09/21/18 19:20 19:20 19:20 WBC 9.3 RBC 2.72 L Hgb 8.0 L Hct 23.1 L MCV 85.1 MCH 29.3 MCHC 34.5 RDW 16.1 Plt Count 127 L MPV 9.3 Neut % (Auto) 67.5 Lymph % (Auto) 9.7 [place] % (Auto) 17.0 H Eos % (Auto) 5.1 H Baso % (Auto) 0.7 Neut # (Auto) 6.3 Lymph # (Auto) 0.9 L [place] # (Auto) 1.6 H Eos # (Auto) 0.5 H Baso # (Auto) 0.1 WBC Differential . Differential Comment Auto diff final PT 15.2 H INR 1.5 APTT 32.9 H Fibrinogen Puncture Site Patient Temperature O2 Saturation ABG pH ABG pCO2 ABG pO2 ABG HCO3 ABG O2 Content ABG Base Excess ABG Methemoglobin Thierno Test Hemoglobin Carboxyhemoglobin O2 Delivery Device Vent Setting Inspired O2 Critical Value Sodium 142 Potassium 3.5 Chloride 108 H Carbon Dioxide 24.5 Anion Gap 10 BUN 52 H Creatinine 1.92 H Estimated GFR 34 L Random Glucose 153 H Lactic Acid Calcium 8.0 L Phosphorus Magnesium Total Bilirubin 1.1 H AST 45 H ALT 36 Alkaline Phosphatase 76 Ammonia Lactate Dehydrogenase Total Protein 5.2 L Albumin 2.2 L Peritoneal Albumin Peritoneal Glucose Nasal Screen MRSA (PCR) Blood Type Antibody Screen MTS Gel Crossmatch Blood Bank Comment Bld Prod Order Comment 09/21/18 09/21/18 09/21/18 19:20 19:20 19:20 WBC RBC Hgb Hct MCV MCH MCHC RDW Plt Count MPV Neut % (Auto) Lymph % (Auto) [place] % (Auto) Eos % (Auto) Baso % (Auto) Neut # (Auto) Lymph # (Auto) [place] # (Auto) Eos # (Auto) Baso # (Auto) WBC Differential Differential Comment PT INR APTT Fibrinogen Puncture Site Patient Temperature O2 Saturation ABG pH ABG pCO2 ABG pO2 ABG HCO3 ABG O2 Content ABG Base Excess ABG Methemoglobin Thierno Test Hemoglobin Carboxyhemoglobin O2 Delivery Device Vent Setting Inspired O2 Critical Value Sodium Potassium Chloride Carbon Dioxide Anion Gap BUN Creatinine Estimated GFR Random Glucose Lactic Acid Calcium Phosphorus Magnesium Total Bilirubin AST ALT Alkaline Phosphatase Ammonia 43 H Lactate Dehydrogenase Total Protein Albumin Peritoneal Albumin Peritoneal Glucose Nasal Screen MRSA (PCR) Blood Type A Positive Antibody Screen Negative MTS Gel Crossmatch See Detail See Detail Blood Bank Comment Bld Prod Order Comment 09/21/18 09/21/18 09/21/18 19:20 19:26 19:29 WBC RBC Hgb Hct MCV MCH MCHC RDW Plt Count MPV Neut % (Auto) Lymph % (Auto) [place] % (Auto) Eos % (Auto) Baso % (Auto) Neut # (Auto) Lymph # (Auto) [place] # (Auto) Eos # (Auto) Baso # (Auto) WBC Differential Differential Comment PT INR APTT Fibrinogen 103 L Puncture Site Patient Temperature O2 Saturation ABG pH ABG pCO2 ABG pO2 ABG HCO3 ABG O2 Content ABG Base Excess ABG Methemoglobin Thierno Test Hemoglobin Carboxyhemoglobin O2 Delivery Device Vent Setting Inspired O2 Critical Value Sodium Potassium Chloride Carbon Dioxide Anion Gap BUN Creatinine Estimated GFR Random Glucose Lactic Acid Calcium Phosphorus Magnesium Total Bilirubin AST ALT Alkaline Phosphatase Ammonia Lactate Dehydrogenase Total Protein Albumin Peritoneal Albumin Peritoneal Glucose Nasal Screen MRSA (PCR) Blood Type Antibody Screen MTS Gel Crossmatch See Detail Blood Bank Comment Bld Prod Order Comment 09/21/18 09/21/18 09/22/18 21:59 22:30 00:13 WBC 8.2 RBC 3.13 L Hgb 9.1 L Hct 26.6 L MCV 85.0 MCH 29.0 MCHC 34.1 RDW 16.5 Plt Count 101 L MPV 8.8 Neut % (Auto) Lymph % (Auto) [place] % (Auto) Eos % (Auto) Baso % (Auto) Neut # (Auto) Lymph # (Auto) [place] # (Auto) Eos # (Auto) Baso # (Auto) WBC Differential Differential Comment PT INR APTT Fibrinogen Puncture Site Left radial Patient Temperature 98.6 O2 Saturation 94 ABG pH 7.32 L ABG pCO2 47 H ABG pO2 97 ABG HCO3 23 ABG O2 Content 12.1 ABG Base Excess -1.8 ABG Methemoglobin 1.5 Thierno Test Present Hemoglobin 9.0 L Carboxyhemoglobin 1.1 O2 Delivery Device Ventilator Vent Setting Prvc/ac Inspired O2 50 Critical Value No Sodium Potassium Chloride Carbon Dioxide Anion Gap BUN Creatinine Estimated GFR Random Glucose Lactic Acid Calcium Phosphorus Magnesium Total Bilirubin AST ALT Alkaline Phosphatase Ammonia Lactate Dehydrogenase Total Protein Albumin Peritoneal Albumin Peritoneal Glucose Nasal Screen MRSA (PCR) Not detected Blood Type Antibody Screen [facility] Gel Crossmatch Blood Bank Comment Bld Prod Order Comment 09/22/18 09/22/18 09/22/18 00:13 00:13 00:13 WBC RBC Hgb Hct MCV MCH MCHC RDW Plt Count MPV Neut % (Auto) Lymph % (Auto) [place] % (Auto) Eos % (Auto) Baso % (Auto) Neut # (Auto) Lymph # (Auto) [place] # (Auto) Eos # (Auto) Baso # (Auto) WBC Differential Differential Comment PT 14.5 H INR 1.4 APTT Fibrinogen 115 L Puncture Site Patient Temperature O2 Saturation ABG pH ABG pCO2 ABG pO2 ABG HCO3 ABG O2 Content ABG Base Excess ABG Methemoglobin Thierno Test Hemoglobin Carboxyhemoglobin O2 Delivery Device Vent Setting Inspired O2 Critical Value Sodium Potassium Chloride Carbon Dioxide Anion Gap BUN Creatinine Estimated GFR Random Glucose Lactic Acid 2.4 H Calcium Phosphorus Magnesium Total Bilirubin AST ALT Alkaline Phosphatase Ammonia Lactate Dehydrogenase Total Protein Albumin Peritoneal Albumin Peritoneal Glucose Nasal Screen MRSA (PCR) Blood Type Antibody Screen [facility] Gel Crossmatch Blood Bank Comment Bld Prod Order Comment 09/22/18 09/22/18 09/22/18 04:26 04:26 04:26 WBC RBC Hgb Hct MCV MCH MCHC RDW Plt Count MPV Neut % (Auto) Lymph % (Auto) [place] % (Auto) Eos % (Auto) Baso % (Auto) Neut # (Auto) Lymph # (Auto) [place] # (Auto) Eos # (Auto) Baso # (Auto) WBC Differential Differential Comment PT 14.5 H INR 1.4 APTT 32.8 H Fibrinogen Puncture Site Patient Temperature O2 Saturation ABG pH ABG pCO2 ABG pO2 ABG HCO3 ABG O2 Content ABG Base Excess ABG Methemoglobin Thierno Test Hemoglobin Carboxyhemoglobin O2 Delivery Device Vent Setting Inspired O2 Critical Value Sodium 143 Potassium 4.7 D Chloride 110 H Carbon Dioxide 25.4 Anion Gap 8 BUN 52 H Creatinine 1.80 H Estimated GFR 37 L Random Glucose 177 H Lactic Acid 3.0 H Calcium 8.0 L Phosphorus 3.3 Magnesium 1.6 Total Bilirubin 1.1 H AST 40 H ALT 34 Alkaline Phosphatase 68 Ammonia Lactate Dehydrogenase Total Protein 4.9 L Albumin 2.1 L Peritoneal Albumin Peritoneal Glucose Nasal Screen MRSA (PCR) Blood Type Antibody Screen [facility] Blood Bank Comment Bld Prod Order Comment 09/22/18 09/22/18 09/22/18 04:26 10:40 10:50 WBC RBC Hgb 7.9 L 8.2 L Hct MCV MCH MCHC RDW Plt Count MPV Neut % (Auto) Lymph % (Auto) [place] % (Auto) Eos % (Auto) Baso % (Auto) Neut # (Auto) Lymph # (Auto) [place] # (Auto) Eos # (Auto) Baso # (Auto) WBC Differential Differential Comment PT INR APTT Fibrinogen Puncture Site Patient Temperature O2 Saturation ABG pH ABG pCO2 ABG pO2 ABG HCO3 ABG O2 Content ABG Base Excess ABG Methemoglobin Thierno Test Hemoglobin Carboxyhemoglobin O2 Delivery Device Vent Setting Inspired O2 Critical Value Sodium Potassium Chloride Carbon Dioxide Anion Gap BUN Creatinine Estimated GFR Random Glucose Lactic Acid Calcium Phosphorus Magnesium Total Bilirubin AST ALT Alkaline Phosphatase Ammonia Lactate Dehydrogenase 329 H Total Protein 5.3 L Albumin Peritoneal Albumin Peritoneal Glucose Nasal Screen MRSA (PCR) Blood Type Antibody Screen [facility] Gel [facility] Blood Bank Comment Bld Prod Order Comment 09/22/18 09/22/18 10:50 17:00 WBC RBC Hgb Hct MCV MCH MCHC RDW Plt Count MPV Neut % (Auto) Lymph % (Auto) [place] % (Auto) Eos % (Auto) Baso % (Auto) Neut # (Auto) Lymph # (Auto) [place] # (Auto) Eos # (Auto) Baso # (Auto) WBC Differential Differential Comment PT INR APTT 32.8 H Fibrinogen Puncture Site Patient Temperature O2 Saturation ABG pH ABG pCO2 ABG pO2 ABG HCO3 ABG O2 Content ABG Base Excess ABG Methemoglobin Thierno Test Hemoglobin Carboxyhemoglobin O2 Delivery Device Vent Setting Inspired O2 Critical Value Sodium Potassium Chloride Carbon Dioxide Anion Gap BUN Creatinine Estimated GFR Random Glucose Lactic Acid Calcium Phosphorus Magnesium Total Bilirubin AST ALT Alkaline Phosphatase Ammonia Lactate Dehydrogenase Total Protein Albumin Peritoneal Albumin 0.2 Peritoneal Glucose 153 Nasal Screen MRSA (PCR) Blood Type Antibody Screen [facility] Gel [facility] Blood Bank Comment Bld Prod Order Comment - Imaging Impressions Chest X-Ray 09/21/18 21:44 CONCLUSION: Endotracheal tube in good position. Bibasal airspace disease. No prior study for comparison. Assessment and Plan (1) Hematemesis Status: Acute Code(s): K92.0 - Hematemesis (2) Cirrhosis Status: Chronic Code(s): K74.60 - Unspecified cirrhosis of liver (3) Hx of hepatitis C Status: Chronic Code(s): Z86.19 - Personal history of other infectious and parasitic diseases (4) Thrombocytopenia Status: Acute Code(s): D69.6 - Thrombocytopenia, unspecified - Plan 09/22/2018 EGD due to melena Hematemesis and history of cirrhosis 09/21/2018 EGD with band ligation of varices : 1. Large blood clot/blood in the fundus. Antrum normal 2. Blood in duodenum 3. Retroflexed views revealed large blood clot -Total bili 1.1 AST 40 ALT 34 alk phos 68 ammonia 43 hemoglobin 8.2 -No noted bleeding per nursing Plan -N.p.o. -EGD as needed -Lactulose enemas twice daily -Monitor hemoglobin and hematocrit -Monitor ammonia level -Monitor for active bleeding and notify GI -Continue pantoprazole drip -Continue octreotide for now -Avoid anticoagulants -Avoid hepatotoxins -Supportive care -Further recommendations to follow This patient has been seen by myself and Dr. Stewart and this note is written on his behalf - Attending Attestation Dr. Stewart
[2018-09-22 19:28] LABS: Mesothelial,Peritoneal Fluid 36 %; Neutrophils,Peritoneal Fluid 3 %; RBC,Peritoneal Fluid 9 /mm3 (0-0)
--- NOTE | 2018-09-22 19:44 | MB ---
cc: Lilly Balbuena MD DATE: 09/22/2018 REASON FOR CONSULTATION: Elevated BUN and creatinine, for evaluation. HISTORY OF PRESENT ILLNESS: This is a 78-year-old male with a past medical history of alcoholism, hypertension, history of stroke with residual aphasia, history of hepatitis C with cirrhosis of the liver, and diagnosed with liver cancer about 1-1/2 years ago, post-chemo and radiation therapy, who came to the hospital with episode of hematemesis. I was called to see the patient because of elevated BUN and creatinine. The patient has a creatinine of 1.9 on admission. I don't have any previous labs for this patient. It looked like he was here for the first time. Most of the history was taken from patient's chart, since the patient was intubated and when I saw him when he was going for paracentesis. The patient was found to have respiratory failure, he has recurrent ascites, and having paracentesis done. Had multiple paracenteses, and the last one was 4 months ago. In the emergency department, the patient was given 1 liter bolus normal saline, and started on Protonix and octreotide, and also transfused, and GI was consulted. Hemoglobin on admission was 8.0. PAST MEDICAL HISTORY: Hypertension, history of cerebrovascular accident, history of alcoholism, hepatitis C, chronic liver disease, history of liver cancer. PAST SURGICAL HISTORY: Has had multiple paracenteses and endoscopies done in the past. REVIEW OF SYSTEMS: Cannot be taken, since the patient is intubated. SOCIAL HISTORY: The patient has history of alcoholism in the past, and he also has past history of smoking. FAMILY HISTORY: Noncontributory. ALLERGIES: HE HAS NO KNOWN DRUG ALLERGIES. MEDICATIONS: Currently the patient is on following medications: Milk of magnesia, albumin IV, Dulcolax, fentanyl, lactulose, , Versed as needed, morphine, octreotide infusion, Zofran, Protonix infusion, propofol, Senokot. PHYSICAL EXAMINATION: GENERAL: The patient is intubated ____. VITAL SIGNS: Blood pressure is recorded as 90/51. His blood pressure has been on the lower side, but the lowest recorded is 78/51. HEENT: Pupils are not constricted, and he has nonicteric sclerae. Conjunctivae are pale. NECK: Supple. LUNGS: The patient has bilateral decreased air entry with scattered wheezing. HEART: S1, S2. Regular rate and rhythm. ABDOMEN: Distended with ascites. There is no tenderness. EXTREMITIES: He has mild edema in the legs. LABORATORY DATA: WBC count is 8.2, hemoglobin 9.1. The last hemoglobin was 8.2, platelet count of 101. INR is 1.4 with a PTT of 32.8. Sodium is 143, potassium 4.7, chloride 110, bicarbonate 25.4, BUN 52, creatinine 1.8, glucose is 177. Lactic acid is 3.0. LDH is 329. Total protein is 4.9 with albumin of 2.1. AST is 40, ALT is 34, total bilirubin 1.1. Magnesium is 1.6, phosphorus 3.3. IMAGING STUDIES: The patient had chest x-ray done, which shows an endotracheal tube in good position, bilateral airspace disease. ASSESSMENT AND PLAN: 1. Possible acute kidney injury. 2. Chronic liver disease. 3. Respiratory failure. 4. Gastrointestinal bleeding and anemia. 5. Cirrhosis of the liver hepatitis C and hepatic carcinoma. The patient has a history of chronic liver disease with hepatitis C and hepatocellular carcinoma. Now, he has respiratory failure and gastrointestinal bleeding. The patient has been getting octreotide and Protonix, and GI is following. The blood pressure off and on has been on the lower side. The acute kidney injury is either acute tubular necrosis because of the hypotension, possibility of some prerenal element. His creatinine has been stable, though the urine output is low. The other possibility is hepatorenal. I will check the urine sodium osmolality. The patient is now going for a paracentesis. Continue the IV albumin to keep the intravascular volume. Avoid hypotension. Transfuse as needed. Thank you for the consultation. MD MEGHAN Wang/[email or web address] , 06:16 PM , 06:30 PM [email or web address]
[2018-09-22] MEDS: LACTULOSE RECTAL SCH ×2 (21:56)
[2018-09-22] MEDS: [UNRECOGNIZED DRUG - OTHER] RECTAL SCH ×2 (21:56)
[2018-09-23] MEDS: Pantoprazole Inj 80 MG in Sodium Chlor 0.9% Inj 100 ML IV.CONT SCH ×4 (00:49→20:40)
[2018-09-23] MEDS: Oral Hygiene Kit OROPHARYNG SCH ×5 (00:50→23:50)
[2018-09-23] MEDS: Octreotide Inj 500 MCG in Sodium Chlor 0.9% Inj 500 ML IV.CONT SCH ×2 (05:51→16:45)
[2018-09-23] MEDS: Chlorhexidine Gluconate 2% 1 Pack (2 Cloths) TOPICAL SCH (05:52)
[2018-09-23] MEDS: Dextrose 5%/Lactated Ringer's 1,000 ML IV.CONT SCH ×3 (05:53→23:50)
[2018-09-23 07:34] LABS: Baso % (Auto) 0.4 % (0.0-2.0); Eos % (Auto) 0.3 % (0.0-4.0); Hematocrit 22.7 % (39.0-51.0); Hemoglobin 7.7 gm/dL (13.0-17.0); Lymph # (Auto) 0.6 th/mm3 (1.0-4.8); Lymph % (Auto) 7.2 % (9.0-44.0); Mean Corpuscular Hemoglobin 28.5 pg (27.0-34.0); Mean Corpuscular Volume 83.8 fL (80.0-100.0); Mean Platelet Volume 8.6 fL (7.0-11.0); Mono # (Auto) 0.7 th/mm3 (0.0-0.9); Neut # (Auto) 6.6 th/mm3 (1.8-7.7); Neut % (Auto) 83.1 % (16.0-70.0); Platelet Count 75 th/mm3 (150-450); Red Blood Count 2.71 mil/mm3 (4.50-5.90); Red Cell Distribution Width 16.8 % (11.6-17.2); White Blood Count 7.9 th/mm3 (4.0-11.0)
[2018-09-23 07:46] LABS: INR 1.5 Ratio; Prothrombin Time 15.2 sec (9.8-11.6)
[2018-09-23] MEDS ORDERED: Dextrose 50% in Water 50 ML Vial IV.PUSH PRN (08:01)
[2018-09-23] MEDS: Senna/Docusate Sodium 8.6/50 MG Tablet PO SCH ×2 (08:04→20:56)
--- NOTE | 2018-09-23 08:06 | P.PNCC ---
Subjective Subjective Remarks/Hospital Course: 09/22: Overnight the patient underwent EGD 5 columns of esophageal varices was located but no bleeding was noted per large blood clot was noted in the fundus and the duodenum 0 hemoglobin and hematocrits continue last hemoglobin noted to be 7.9. The patient continues on Protonix and octreotide infusions currently. Patient was noted to have a low normal blood pressure on propofol infusion this is been discontinued. Versed and fentanyl infusions initiated to maintain ventilator synchrony. Patient noted to have acute kidney injury creatinine downtrending slightly peer nephrology has been consulted appreciate recommendations per patient with known ascites last known paracentesis approximately 4 months ago peer INR within normal limits invasive radiology has been consulted for possible paracentesis. 09/23: The patient underwent CT-guided paracentesis yesterday 5.2 L removed the patient's FiO2 requirements continue to decrease PEEP has been decreased down to 5 FiO2 of 40%. Urine output 770 cc in 24hr. Lactulose enemas have been added to medication regimen twice daily secondary to hyperammonemia. Objective Vital Signs / I&O: Vital Signs 09/22/18 08:00 09/22/18 08:15 09/22/18 08:30 Temperature 97.4 F L Pulse Rate 73 69 153 H Respiratory Rate 15 15 26 H Blood Pressure 101/58 L 106/55 L 83/50 L Pulse Oximetry 100 99 99 09/22/18 08:37 09/22/18 08:40 09/22/18 08:45 Temperature Pulse Rate 99 H 81 155 H Respiratory Rate 19 17 26 H Blood Pressure 83/37 L 96/55 L 95/50 L Pulse Oximetry 98 100 97 09/22/18 09:00 09/22/18 10:00 09/22/18 10:15 Temperature Pulse Rate 124 H 75 76 Respiratory Rate 20 17 15 Blood Pressure 115/56 L 112/58 L Pulse Oximetry 98 99 98 09/22/18 10:30 09/22/18 10:45 09/22/18 11:00 Temperature Pulse Rate 75 76 76 Respiratory Rate 12 16 17 Blood Pressure 99/57 L 100/62 112/65 Pulse Oximetry 97 98 98 09/22/18 11:15 09/22/18 11:30 09/22/18 11:45 Temperature Pulse Rate 77 74 74 Respiratory Rate 17 15 15 Blood Pressure 95/61 L 100/62 104/65 Pulse Oximetry 98 98 98 09/22/18 11:47 09/22/18 12:00 09/22/18 12:15 Temperature 97.6 F Pulse Rate 76 75 Respiratory Rate 13 14 15 Blood Pressure 110/59 L 114/62 Pulse Oximetry 97 97 97 09/22/18 12:30 09/22/18 12:45 09/22/18 13:00 Temperature Pulse Rate 75 75 74 Respiratory Rate 13 14 14 Blood Pressure 100/56 L 100/58 L 103/61 Pulse Oximetry 97 98 97 09/22/18 13:45 09/22/18 14:00 09/22/18 14:15 Temperature Pulse Rate 74 72 76 Respiratory Rate 14 15 14 Blood Pressure 89/57 L 108/59 L 108/64 Pulse Oximetry 97 97 97 09/22/18 14:30 09/22/18 14:45 09/22/18 15:00 Temperature Pulse Rate 77 79 80 Respiratory Rate 14 11 L 15 Blood Pressure 99/65 L 108/69 107/71 Pulse Oximetry 96 96 97 09/22/18 15:15 09/22/18 15:30 09/22/18 15:45 Temperature Pulse Rate 81 82 84 Respiratory Rate 12 12 10 L Blood Pressure 109/72 114/75 115/74 Pulse Oximetry 97 97 97 09/22/18 16:00 09/22/18 16:02 09/22/18 16:15 Temperature 97.5 F L Pulse Rate 88 85 Respiratory Rate 13 16 Blood Pressure 125/67 Pulse Oximetry 99 97 100 09/22/18 17:00 09/22/18 17:17 09/22/18 17:30 Temperature Pulse Rate 80 78 79 Respiratory Rate 23 22 18 Blood Pressure 110/70 107/76 Pulse Oximetry 100 100 100 09/22/18 17:40 09/22/18 17:45 09/22/18 18:00 Temperature Pulse Rate 79 80 81 Respiratory Rate 18 17 19 Blood Pressure 114/97 H 129/74 112/58 L Pulse Oximetry 100 100 100 09/22/18 18:15 09/22/18 18:16 09/22/18 18:30 Temperature Pulse Rate 80 81 79 Respiratory Rate 15 7 L 10 L Blood Pressure 113/65 91/55 L 111/58 L Pulse Oximetry 99 95 96 09/22/18 18:45 09/22/18 18:47 09/22/18 19:00 Temperature Pulse Rate 76 74 Respiratory Rate 12 14 10 L Blood Pressure 86/52 L 78/50 L Pulse Oximetry 96 96 97 09/22/18 19:01 09/22/18 19:15 09/22/18 19:30 Temperature Pulse Rate 74 73 72 Respiratory Rate 17 14 11 L Blood Pressure 82/52 L 82/51 L 83/50 L Pulse Oximetry 96 97 97 09/22/18 19:45 09/22/18 20:00 09/22/18 20:15 Temperature 97.9 F Pulse Rate 72 70 72 Respiratory Rate 14 12 14 Blood Pressure 93/53 L 86/51 L 93/54 L Pulse Oximetry 97 97 96 09/22/18 20:30 09/22/18 20:45 09/22/18 21:00 Temperature Pulse Rate 71 70 72 Respiratory Rate 14 15 16 Blood Pressure 94/55 L 92/55 L 100/61 Pulse Oximetry 96 96 96 09/22/18 21:04 09/22/18 21:15 09/22/18 21:30 Temperature Pulse Rate 73 75 Respiratory Rate 20 13 14 Blood Pressure 106/58 L 101/58 L Pulse Oximetry 97 96 96 09/22/18 21:45 09/22/18 22:00 09/22/18 22:15 Temperature Pulse Rate 98 H 91 H 81 Respiratory Rate 15 22 21 Blood Pressure 97/60 L 97/61 L 100/61 Pulse Oximetry 95 95 96 09/22/18 22:30 09/22/18 22:45 09/22/18 23:00 Temperature Pulse Rate 78 77 75 Respiratory Rate 15 15 13 Blood Pressure 99/58 L 92/55 L 86/53 L Pulse Oximetry 96 96 96 09/22/18 23:15 09/22/18 23:30 09/22/18 23:45 Temperature Pulse Rate 75 75 75 Respiratory Rate 13 14 20 Blood Pressure 88/51 L 84/54 L 96/54 L Pulse Oximetry 97 97 96 09/23/18 00:00 09/23/18 00:09 09/23/18 00:15 Temperature 97.8 F Pulse Rate 74 76 Respiratory Rate 18 15 18 Blood Pressure 89/50 L 89/53 L Pulse Oximetry 97 96 95 09/23/18 00:30 09/23/18 00:45 09/23/18 01:00 Temperature Pulse Rate 74 76 76 Respiratory Rate 23 11 L 13 Blood Pressure 91/55 L 94/56 L 92/55 L Pulse Oximetry 95 96 96 09/23/18 01:15 09/23/18 01:30 09/23/18 01:45 Temperature Pulse Rate 75 75 75 Respiratory Rate 21 15 16 Blood Pressure 89/55 L 90/54 L 86/52 L Pulse Oximetry 96 97 96 09/23/18 02:00 09/23/18 02:15 09/23/18 02:30 Temperature Pulse Rate 75 74 75 Respiratory Rate 14 17 19 Blood Pressure 88/54 L 91/55 L 93/53 L Pulse Oximetry 97 97 97 09/23/18 02:45 09/23/18 03:00 09/23/18 03:15 Temperature Pulse Rate 75 83 80 Respiratory Rate 13 18 30 H Blood Pressure 95/56 L 91/55 L 100/59 L Pulse Oximetry 97 96 96 09/23/18 03:30 09/23/18 03:45 09/23/18 04:00 Temperature 97.6 F Pulse Rate 76 78 80 Respiratory Rate 17 18 24 Blood Pressure 91/53 L 96/51 L 97/54 L Pulse Oximetry 97 96 96 09/23/18 04:15 09/23/18 04:20 09/23/18 04:30 Temperature Pulse Rate 81 84 Respiratory Rate 27 H 14 26 H Blood Pressure 100/58 L 99/56 L Pulse Oximetry 96 97 96 09/23/18 04:45 09/23/18 05:00 09/23/18 05:15 Temperature Pulse Rate 90 94 H 87 Respiratory Rate 25 H 25 H 16 Blood Pressure 114/57 L 111/62 111/56 L Pulse Oximetry 96 95 95 09/23/18 05:30 09/23/18 05:45 09/23/18 06:00 Temperature Pulse Rate 87 96 H 84 Respiratory Rate 18 19 14 Blood Pressure 100/59 L 102/57 L 93/52 L Pulse Oximetry 96 95 94 L 09/23/18 06:15 09/23/18 07:52 Temperature Pulse Rate 82 Respiratory Rate 13 14 Blood Pressure 93/50 L Pulse Oximetry 95 99 Intake & Output 09/22/18 09/23/18 09/23/18 18:59 06:59 18:59 Intake Total 1276.5 / 1276.5 3251.0 / 3251.0 Output Total 225 / 225 250 / 250 25 / 25 Balance 1051.5 / 1051.5 3001.0 / 3001.0 -25 / -25 Weight 82 kg Intake: IV 1276.5 / 1276.5 3251.0 / 3251.0 D5W/LR Inj 1,000 ML @ 125 mls/ 1000 / 1000 2000 / 2000 hr IV.CONT .Q8H NALINI Rx#: [id number] SandoSTATIN Inj 500 MCG In NS 148.5 / 148.5 1001.0 / 1001.0 Inj 500 ML @ 50 MCG/HR 50.05 mls/hr IV.CONT .Q10H NALINI Rx#: [id number] Protonix Inj 80 MG In NS Inj 78 / 78 100 / 100 100 ML @ 10 mls/hr IV.CONT Q10H NALINI Rx#:[id number] Flexbumin 25% Inj 50 ML @ 60 50 / 50 50 / 50 mls/hr IV.SIG Q12H NALINI Rx#: [id number] Rocephin Inj 1,000 MG In NS Inj 100 / 100 100 ML @ 200 mls/hr IV.SIG Q24H NALINI Rx#:[id number] Oral 0 / 0 Output: Urine Amount (Catheter) 225 / 225 250 / 250 25 / 25 Indwelling Temp Sensing 225 / 225 250 / 250 25 / 25 Catheter Other: Date of Last Bowel Movement 09/22/18 09/23/18 # Bowel Movements 0 # Incontinent Bowel Movements 1 Result Diagrams: 09/23/18 07:10 09/22/18 04:26 Other Results: Laboratory Results WBC 7.9 th/mm3 (4.0-11.0) 09/23/18 07:10 RBC 2.71 mil/mm3 (4.50-5.90) L 09/23/18 07:10 Hgb 7.7 gm/dL (13.0-17.0) L 09/23/18 07:10 Hct 22.7 % (39.0-51.0) L 09/23/18 07:10 MCV 83.8 fL (80.0-100.0) 09/23/18 07:10 MCH 28.5 pg (27.0-34.0) 09/23/18 07:10 MCHC 34.0 % (32.0-36.0) 09/23/18 07:10 RDW 16.8 % (11.6-17.2) 09/23/18 07:10 Plt Count 75 th/mm3 (150-450) L 09/23/18 07:10 MPV 8.6 fL (7.0-11.0) 09/23/18 07:10 Prelim Diff (Auto) Slide review pending 09/23/18 07:10 Neut % (Auto) 83.1 % (16.0-70.0) H 09/23/18 07:10 Lymph % (Auto) 7.2 % (9.0-44.0) L 09/23/18 07:10 Crawford % (Auto) 9.0 % (0.0-8.0) H 09/23/18 07:10 Eos % (Auto) 0.3 % (0.0-4.0) 09/23/18 07:10 Baso % (Auto) 0.4 % (0.0-2.0) 09/23/18 07:10 Neut # (Auto) 6.6 th/mm3 (1.8-7.7) 09/23/18 07:10 Lymph # (Auto) 0.6 th/mm3 (1.0-4.8) L 09/23/18 07:10 Crawford # (Auto) 0.7 th/mm3 (0.0-0.9) 09/23/18 07:10 Eos # (Auto) 0.0 th/mm3 (0.0-0.4) 09/23/18 07:10 Baso # (Auto) 0.0 th/mm3 (0.0-0.2) 09/23/18 07:10 WBC Differential . 09/21/18 19:20 Differential Comment . 09/23/18 07:10 PT 15.2 sec (9.8-11.6) H 09/23/18 07:23 INR 1.5 Ratio 09/23/18 07:23 APTT 32.8 sec (23.4-31.7) H 09/22/18 10:50 Fibrinogen 115 mg/dL (227-377) L 09/22/18 00:13 Puncture Site Left radial 09/21/18 21:59 Patient Temperature 98.6 09/21/18 21:59 O2 Saturation 94 % (90-100) 09/21/18 21:59 ABG pH 7.32 (7.380-7.420) L 09/21/18 21:59 ABG pCO2 47 mmHg (38-42) H 09/21/18 21:59 ABG pO2 97 mmHG (61-120) 09/21/18 21:59 ABG HCO3 23 mmol/L (22-26) 09/21/18 21:59 ABG O2 Content 12.1 Vol % (12.0-20.0) 09/21/18 21:59 ABG Base Excess -1.8 mmol/L (-2-2) 09/21/18 21:59 ABG Methemoglobin 1.5 % (0-2) 09/21/18 21:59 Thierno Test Present 09/21/18 21:59 Hemoglobin 9.0 G/DL (12.0-16.0) L 09/21/18 21:59 Carboxyhemoglobin 1.1 % (0-4) 09/21/18 21:59 O2 Delivery Device Ventilator 09/21/18 21:59 Vent Setting Prvc/ac 09/21/18 21:59 Inspired O2 50 % 09/21/18 21:59 Critical Value No 09/21/18 21:59 Sodium 143 meq/L (136-145) 09/22/18 04:26 Potassium 4.7 meq/L (3.5-5.1) D 09/22/18 04:26 Chloride 110 meq/L (98-107) H 09/22/18 04:26 Carbon Dioxide 25.4 meq/L (21.0-32.0) 09/22/18 04:26 Anion Gap 8 meq/L (5-15) 09/22/18 04:26 BUN 52 mg/dL (7-18) H 09/22/18 04:26 Creatinine 1.80 mg/dL (0.60-1.30) H 09/22/18 04:26 Estimated GFR 37 mL/min (>89) L 09/22/18 04:26 POC Glucose 131 mg/dl (68-110) H 09/22/18 21:21 Random Glucose 177 mg/dL (74-106) H 09/22/18 04:26 Lactic Acid 3.0 mmol/L (0.4-2.0) H 09/22/18 04:26 Calcium 8.0 mg/dL (8.5-10.1) L 09/22/18 04:26 Phosphorus 3.3 mg/dL (2.5-4.9) 09/22/18 04:26 Magnesium 1.6 mg/dL (1.5-2.5) 09/22/18 04:26 Total Bilirubin 1.1 mg/dL (0.2-1.0) H 09/22/18 04:26 AST 40 U/L (15-37) H 09/22/18 04:26 ALT 34 U/L (12-78) 09/22/18 04:26 Alkaline Phosphatase 68 U/L (45-117) 09/22/18 04:26 Ammonia 43 mcmol/L (11-32) H 09/21/18 19:20 Lactate Dehydrogenase 329 U/L (87-241) H 09/22/18 10:50 Total Protein 5.3 g/dL (6.4-8.2) L 09/22/18 10:50 Albumin 2.1 g/dL (3.4-5.0) L 09/22/18 04:26 Urine Osmolality 654 mosm/kg (300-1300) 09/22/18 23:35 Ur Random Sodium Less than 5 meq/L 09/22/18 23:35 Peritoneal RBC 9 /mm3 (0-0) H 09/22/18 17:00 Periton Nuc Cells 81 /mm3 (0-10) H 09/22/18 17:00 Periton Neutrophils 3 % 09/22/18 17:00 Periton Lymphocytes 11 % 09/22/18 17:00 Peritoneal Monocytes 35 % 09/22/18 17:00 Periton Mesothelial 36 % 09/22/18 17:00 Periton Histiocytes 15 % 09/22/18 17:00 Peritoneal Tot Protein 0.3 gm/dL 09/22/18 17:00 Peritoneal Albumin 0.2 g/dL 09/22/18 17:00 Peritoneal LDH 26 U/L 09/22/18 17:00 Peritoneal Glucose 153 mg/dL 09/22/18 17:00 Nasal Screen MRSA (PCR) Not detected (Negative) 09/21/18 22:30 Blood Type A Positive 09/21/18 19:20 Antibody Screen Negative 09/21/18 19:20 MTS Gel Crossmatch See Detail 09/21/18 19:26 Blood Bank Comment 09/21/18 19:20 Bld Prod Order Comment 09/21/18 19:29 Impressions Chest X-Ray 09/21/18 21:44 CONCLUSION: Endotracheal tube in good position. Bibasal airspace disease. No prior study for comparison. Objective Remarks: GENERAL: This is a well-developed well-nourished chronically ill-appearing, currently intubated and sedated SKIN: Warm and dry. Ecchymosis noted bilateral forearm HEAD: Atraumatic. Normocephalic. EYES: Pupils equal and round. No scleral icterus. No injection or drainage. ENT: No nasal bleeding or discharge. Mucous membranes pink and moist. NECK: Trachea midline. No JVD. CARDIOVASCULAR: Normal rate, regular rhythm. RESPIRATORY: No accessory muscle use. Clear to auscultation. Breath sounds equal bilaterally. GASTROINTESTINAL: Abdomen soft, umbilical hernia noted reducible, distended. No guarding. Noted abdominal rash with multiple pinpoint lesions back and legs MUSCULOSKELETAL: Extremities without clubbing, cyanosis, or edema. No obvious deformities. Noted 1+ bilateral pedal edema NEUROLOGICAL: Intubated and sedated. RASS -2. No gross focal/sensory deficits. Follows commands in all 4 extremities. Procedures: 09/21- EGD 09/22-CT guided paracentesis 2.5 L removed Assessment and Plan - Problem List (1) Acute blood loss anemia Code(s): D62 - Acute posthemorrhagic anemia Status: Acute (2) Hematemesis Code(s): K92.0 - Hematemesis Status: Acute (3) Cirrhosis Code(s): K74.60 - Unspecified cirrhosis of liver Status: Chronic (4) Hx of hepatitis C Code(s): Z86.19 - Personal history of other infectious and parasitic diseases Status: Chronic (5) MART (acute kidney injury) Code(s): N17.9 - Acute kidney failure, unspecified Status: Acute (6) Thrombocytopenia Code(s): D69.6 - Thrombocytopenia, unspecified Status: Acute - Assessment and Plan Plan: NEURO: History of stroke with residual aphasia Hyperammonemia No NGT so unable to give po lactulose/rifaximin currently. Morphine prn pain. Versed and fentanyl infusions to maintain ventilator synchrony RASS -2. Propofol discontinued Lactulose enemas twice daily RESP: Acute respiratory failure To remain intubated for airway protection while observing for ongoing UGI bleeding. PRVC. Vent Bundle CXR clear with satisfactory ETT position. Duo nebs PRN CV: Essential hypertension On Norvasc at home. Will hold. D5 LR 125 ml/hr. GI: Upper GI bleed secondary to esophageal varices now s/p banding Hx Hep C Cirrhosis Hepatocellular carcinoma s/p TACE procedure Recurrent ascites Protonix drip Octreotide drip Serial hemoglobin and hematocrit 09/21 GI consulted emergently, Dr. Beverly. Esophageal varices banded. Reportedly no active bleeding but unable to rule out gastric varices due to presence of clots in the stomach. No NGT. 09/22paracentesis 5.2 L removed FEN/RENAL: ?MART (unknown baseline creatinine) Oliguria Burnett in place. Monitor I/O. Monitor electrolytes and replace as indicated per ICU electrolyte replacement protocol. IVF as per above. Albumin 12.5 twice daily Nephrology following ID: Rocephin for SBP prophylaxis. Tinea corporis Clotrimazole 1% cream bid. HEME: Acute blood loss anemia Thrombocytopenia Coagulopathy Transfuse 2 units of emergency release blood. Transfuse 1 unit FFP and 1 unit of platelets per ED physician. Vitamin K 10 mg IV now. Follow-up coags and fibrinogen and serial hemoglobin. Transfuse as indicated based on hemodynamics or for Hgb <7, plts <50, fibrinogen <100. Monitor serial hemoglobin ENDO: Euglycemic PROPH: SCDs for DVT prophylaxis. Pharmacologic DVT prophylaxis is contraindicated. Protonix drip as per above ACCESS: [address]. Patient is critically ill with acute hematemesis and blood loss anemia who is at high risk for further deterioration or . FULL CODE My billing statement This patient remains critically ill with one or more organ systems which are or may become a threat to life. I have spent in excess of 30 minutes discontinuously in the care and management of this patient. This time is exclusive of procedures, and includes, but is not limited to, evaluation of the patient, review of the medical record, discussions with family, consultants, nursing staff, or respiratory therapy, and documentation in the medical record. Code Status: Full Discussed Condition With: No family at bedside. Case discussed with [employer]
[2018-09-23 08:14] LABS: Ovalocytes 1+
[2018-09-23 08:15] LABS: Acanthocytes Occ; Platelet Morphology Normal (Normal)
[2018-09-23 08:21] LABS: Alanine Aminotransferase 35 U/L (12-78); Albumin 2.4 g/dL (3.4-5.0); Alkaline Phosphatase 63 U/L (45-117); Anion Gap 9 meq/L (5-15); Aspartate Aminotransferase 76 U/L (15-37); Blood Urea Nitrogen 60 mg/dL (7-18); Calcium 7.9 mg/dL (8.5-10.1); Carbon Dioxide 24.4 meq/L (21.0-32.0); Chloride 114 meq/L (98-107); Glomerular Filtration Rate 33 mL/min (>89); Glucose,Random 114 mg/dL (74-106); Magnesium 1.9 mg/dL (1.5-2.5); Phosphorus 2.8 mg/dL (2.5-4.9); Potassium 4.4 meq/L (3.5-5.1); Sodium 147 meq/L (136-145); Total Protein 5.1 g/dL (6.4-8.2)
--- NOTE | 2018-09-23 09:16 | CT ---
EXAM DATE: 09/22/2018 7:16 PM EST AGE/SEX: 78 years / Male INDICATIONS: Fluid CLINICAL DATA: This is the patient's initial encounter. Patient reports that signs and symptoms have been present for 1 day and indicates a pain score of Nonresponsive. MEDICAL/SURGICAL HISTORY: Cirrhosis. Hepatitis C. Cardiovascular disease. Hypertension liver can cer None. COMPARISON: . DEVICE(S): 6 Fr [id number] FLUID: Total volume of 5200 of cloudy, yellow fluid was removed. Fluid was sent to lab for ordered studies.. . . PROCEDURE : 1. CT-guidance for abdominal paracentesis. 2. Paracentesis. The risks, benefits and alternatives to CT-guided paracentesis were explained to the patient in detai l, lay terms including the risk of bleeding and infection. Oral and written informed consent was obt ained. Using automated exposure control and adjustment of the mA and/or kV according to patient size, radiation dose was kept as low as reasonably achievable to obtain optimal diagnostic quality images. DICOM format image data is available electronically for review and comparison. The patient was scanned to select approach for paracentesis. The skin was prepped in sterile fashion . The skin and subcutaneous tissues were infiltrated with Lidocaine solution. A 6 Haitian catheter w as introduced to the peritoneal cavity and ascites was collected. Post procedure scanning reveals no evidence of hematoma or other complication. The patient tolerated the procedure well and left the CT suite in good condition. FINDINGS: CONCLUSION: 1. Uncomplicated CT Guided paracentesis. Electronically signed by: Jama Aguayo MD Board Certified Radiologist 09/23/2018 9:14 AM EST
[2018-09-23] MEDS: Clotrimazole 1% Cream 15 GM Tube TOPICAL SCH ×2 (10:05→20:55)
[2018-09-23] MEDS: Chlorhexidine 0.12% Oral Kit 15 ML UDC OROPHARYNG SCH ×2 (10:05→20:55)
[2018-09-23] MEDS: Midazolam 100 MG/100 ML Inj 100 MG/100 ML BAG IV.CONT PRN (10:05)
[2018-09-23] MEDS: Albumin Human 25% Inj 50 ML IV.SIG SCH ×2 (10:05→21:02)
--- NOTE | 2018-09-23 10:17 | US ---
EXAM DATE: 09/23/2018 10:14 AM EST AGE/SEX: 78 years / Male INDICATIONS: Increased Bun and Creatinine. CLINICAL DATA: This is the patient's initial encounter. Patient reports that signs and symptoms have been present for 1 day and indicates a pain score of Nonresponsive. MEDICAL/SURGICAL HISTORY: . Aphasia. Cirrhosis. Stroke. Liver cancer. Appendectomy. COMPARISON: [facility] [place] GUIDED ABD PARACENTESIS, 09/22/2018. . MEASUREMENTS: Right Kidney:__9.7 x 4.9 x 5.2 cm Left Kidney:__9.2 x 4.5 x 4.6 cm FINDINGS: Right Kidney: Increased echogenicity. No mass or hydronephrosis. Left Kidney: Increased echogenicity. No mass or hydronephrosis. Bladder: Burnett catheter is present. Bladder decompressed. Other: Cirrhotic appearing liver with ascites. Small right pleural effusion. CONCLUSION: 1. Echogenic kidneys consistent with medical renal disease. 2. Cirrhotic liver with ascites. 3. Small right pleural effusion, likely hepatic hydrothorax. Electronically signed by: Byron Rocha MD Board Certified Radiologist 09/23/2018 10:16 AM EDUARDO Kohler
[2018-09-23] MEDS: [UNRECOGNIZED DRUG - OTHER] RECTAL SCH ×4 (10:57→23:49)
[2018-09-23] MEDS: LACTULOSE RECTAL SCH ×4 (10:57→23:49)
[2018-09-23] MEDS: fentaNYL 10 mcg/mL Premix Drip 2,500 MCG/250 ML BAG IV.SIG PRN (11:29)
[2018-09-23] MEDS: Insulin NovoLOG Aspart Correctional Sugar Inj SQ SCH ×2 (11:31→17:56)
[2018-09-23] MEDS ORDERED: Octreotide Inj 500 MCG/ML Vial IV.CONT SCH (20:00)
--- NOTE | 2018-09-23 20:30 | P.PNNP ---
Subjective Interval history: Patient seen in the afternoon, remain intubated and sedated. Physical Exam Vital signs: Vital Signs 09/22/18 20:30 09/22/18 20:45 09/22/18 21:00 Temperature Pulse Rate 71 70 72 Respiratory Rate 14 15 16 Blood Pressure 94/55 L 92/55 L 100/61 Pulse Oximetry 96 96 96 09/22/18 21:04 09/22/18 21:15 09/22/18 21:30 Temperature Pulse Rate 73 75 Respiratory Rate 20 13 14 Blood Pressure 106/58 L 101/58 L Pulse Oximetry 97 96 96 09/22/18 21:45 09/22/18 22:00 09/22/18 22:15 Temperature Pulse Rate 98 H 91 H 81 Respiratory Rate 15 22 21 Blood Pressure 97/60 L 97/61 L 100/61 Pulse Oximetry 95 95 96 09/22/18 22:30 09/22/18 22:45 09/22/18 23:00 Temperature Pulse Rate 78 77 75 Respiratory Rate 15 15 13 Blood Pressure 99/58 L 92/55 L 86/53 L Pulse Oximetry 96 96 96 09/22/18 23:15 09/22/18 23:30 09/22/18 23:45 Temperature Pulse Rate 75 75 75 Respiratory Rate 13 14 20 Blood Pressure 88/51 L 84/54 L 96/54 L Pulse Oximetry 97 97 96 09/23/18 00:00 09/23/18 00:09 09/23/18 00:15 Temperature 97.8 F Pulse Rate 74 76 Respiratory Rate 18 15 18 Blood Pressure 89/50 L 89/53 L Pulse Oximetry 97 96 95 09/23/18 00:30 09/23/18 00:45 09/23/18 01:00 Temperature Pulse Rate 74 76 76 Respiratory Rate 23 11 L 13 Blood Pressure 91/55 L 94/56 L 92/55 L Pulse Oximetry 95 96 96 09/23/18 01:15 09/23/18 01:30 09/23/18 01:45 Temperature Pulse Rate 75 75 75 Respiratory Rate 21 15 16 Blood Pressure 89/55 L 90/54 L 86/52 L Pulse Oximetry 96 97 96 09/23/18 02:00 09/23/18 02:15 09/23/18 02:30 Temperature Pulse Rate 75 74 75 Respiratory Rate 14 17 19 Blood Pressure 88/54 L 91/55 L 93/53 L Pulse Oximetry 97 97 97 09/23/18 02:45 09/23/18 03:00 09/23/18 03:15 Temperature Pulse Rate 75 83 80 Respiratory Rate 13 18 30 H Blood Pressure 95/56 L 91/55 L 100/59 L Pulse Oximetry 97 96 96 09/23/18 03:30 09/23/18 03:45 09/23/18 04:00 Temperature 97.6 F Pulse Rate 76 78 80 Respiratory Rate 17 18 24 Blood Pressure 91/53 L 96/51 L 97/54 L Pulse Oximetry 97 96 96 09/23/18 04:15 09/23/18 04:20 09/23/18 04:30 Temperature Pulse Rate 81 84 Respiratory Rate 27 H 14 26 H Blood Pressure 100/58 L 99/56 L Pulse Oximetry 96 97 96 09/23/18 04:45 09/23/18 05:00 09/23/18 05:15 Temperature Pulse Rate 90 94 H 87 Respiratory Rate 25 H 25 H 16 Blood Pressure 114/57 L 111/62 111/56 L Pulse Oximetry 96 95 95 09/23/18 05:30 09/23/18 05:45 09/23/18 06:00 Temperature Pulse Rate 87 96 H 84 Respiratory Rate 18 19 14 Blood Pressure 100/59 L 102/57 L 93/52 L Pulse Oximetry 96 95 94 L 09/23/18 06:15 09/23/18 07:00 09/23/18 07:52 Temperature Pulse Rate 82 Respiratory Rate 13 14 Blood Pressure 93/50 L Pulse Oximetry 95 94 L 99 09/23/18 08:00 09/23/18 08:15 09/23/18 08:30 Temperature 98.5 F Pulse Rate 163 H 98 H 111 H Respiratory Rate 22 25 H 28 H Blood Pressure 124/57 L 111/55 L 113/59 L Pulse Oximetry 99 94 L 94 L 09/23/18 08:45 09/23/18 09:00 09/23/18 09:45 Temperature Pulse Rate 103 H 85 88 Respiratory Rate 15 12 16 Blood Pressure 109/58 L 109/57 L 114/58 L Pulse Oximetry 95 95 95 09/23/18 10:00 09/23/18 10:15 09/23/18 10:30 Temperature Pulse Rate 87 92 H 86 Respiratory Rate 13 14 11 L Blood Pressure 107/56 L 106/59 L 95/56 L Pulse Oximetry 94 L 94 L 94 L 09/23/18 10:45 09/23/18 11:00 09/23/18 11:15 Temperature Pulse Rate 86 109 H 86 Respiratory Rate 12 23 14 Blood Pressure 106/59 L 118/74 99/57 L Pulse Oximetry 94 L 94 L 93 L 09/23/18 11:20 09/23/18 11:30 09/23/18 11:45 Temperature Pulse Rate 86 89 Respiratory Rate 16 23 19 Blood Pressure 96/56 L 104/58 L Pulse Oximetry 93 L 93 L 94 L 09/23/18 12:00 09/23/18 12:15 09/23/18 12:30 Temperature 98.6 F Pulse Rate 88 86 87 Respiratory Rate 20 15 20 Blood Pressure 109/56 L 107/56 L 107/59 L Pulse Oximetry 94 L 95 95 09/23/18 12:45 09/23/18 13:00 09/23/18 13:15 Temperature Pulse Rate 86 149 H 114 H Respiratory Rate 20 19 22 Blood Pressure 105/59 L 111/55 L 114/57 L Pulse Oximetry 96 95 96 09/23/18 13:30 09/23/18 13:45 09/23/18 14:00 Temperature Pulse Rate 139 H 94 H 100 H Respiratory Rate 20 23 17 Blood Pressure 101/57 L 117/56 L 138/61 Pulse Oximetry 94 L 93 L 96 09/23/18 14:15 09/23/18 14:30 09/23/18 14:45 Temperature Pulse Rate 102 H 98 H 101 H Respiratory Rate 27 H 18 20 Blood Pressure 117/55 L 118/58 L 120/56 L Pulse Oximetry 92 L 91 L 91 L 09/23/18 15:00 09/23/18 15:15 09/23/18 15:30 Temperature Pulse Rate 101 H 98 H 97 H Respiratory Rate 19 15 19 Blood Pressure 126/59 L 114/58 L 111/59 L Pulse Oximetry 91 L 92 L 91 L 09/23/18 15:45 09/23/18 16:00 09/23/18 18:02 Temperature 100.0 F H Pulse Rate 99 H 100 H 101 H Respiratory Rate 15 22 Blood Pressure 113/57 L 118/55 L Pulse Oximetry 91 L 90 L 09/23/18 20:00 Temperature Pulse Rate Respiratory Rate 15 Blood Pressure Pulse Oximetry 96 Intake & Output 09/23/18 09/23/18 09/24/18 06:59 18:59 06:59 Intake Total 3251.0 / 3251.0 1950.5 / 1950.5 Output Total 250 / 250 370 / 370 Balance 3001.0 / 3001.0 1580.5 / 1580.5 Weight 82 kg Intake: IV 3251.0 / 3251.0 1950.5 / 1950.5 D5W/LR Inj 1,000 ML @ 125 mls/ 2000 / 2000 1000 / 1000 hr IV.CONT .Q8H NALINI Rx#: [id number] Versed Inj 100 mg In 100 ml @ 2 100 / 100 MG/HR 2 mls/hr IV.CONT TITRATE PRN Rx#:[id number] SandoSTATIN Inj 500 MCG In NS 1001.0 / 1001.0 500.5 / 500.5 Inj 500 ML @ 50 MCG/HR 50.05 mls/hr IV.CONT .Q10H NALINI Rx#: [id number] Protonix Inj 80 MG In NS Inj 100 / 100 100 / 100 100 ML @ 10 mls/hr IV.CONT Q10H NALINI Rx#:[id number] Flexbumin 25% Inj 50 ML @ 60 50 / 50 mls/hr IV.SIG Q12H NALINI Rx#: [id number] Rocephin Inj 1,000 MG In NS Inj 100 / 100 100 ML @ 200 mls/hr IV.SIG Q24H NALINI Rx#:[id number] fentaNYL 10 mcg/mL Premix Drip 250 / 250 2,500 mcg In 250 ml @ 50 MCG/HR 5 mls/hr IV.SIG TITRATE PRN Rx #:[id number] Oral 0 / 0 Output: Urine Amount (Catheter) 250 / 250 370 / 370 Indwelling Temp Sensing 250 / 250 370 / 370 Catheter Other: Date of Last Bowel Movement 09/22/18 09/23/17 # Bowel Movements 1 # Incontinent Bowel Movements 1 Narrative: GENERAL: Patient is intubated and sedated. SKIN: cool, dry. Annular rash with central clearing on abdomen which appears is pruritic due to excoriation, appears c/w tinea corporis. There is excoriating over the left lateral thigh. There are multiple patches on his back that have somewhat different morphology than the lesions on his abdomen that could be pityriasis. HEAD: Atraumatic. Normocephalic. EYES: Pupils equal and round. ENT: No nasal bleeding or discharge. Mucous membranes dry. NECK: Trachea midline. Jugular vein flat. CARDIOVASCULAR: Regular rate and rhythm, sinus on the monitor with rate in the 80s. No murmurs rubs or gallops. RESPIRATORY: Mildly tachypneic with no accessory muscle use. Clear to auscultation bilaterally. On room air. GASTROINTESTINAL: Abdomen distended without tenderness or rebound, reducible umbilical hernia. Hypoactive bowel sounds. MUSCULOSKELETAL: Extremities without clubbing, cyanosis. 1+ bipedal edema. NEUROLOGICAL: Sedated. - Urinary Catheter Management Indwelling Temp Sensing Catheter Cath placed during this visit: yes Urethral indwelling: Yes Reason for continuing: Hourly intake/output Insertion date: 09/21/18 Insertion time: 20:00 Assessment and Plan - Assessment (1) Acute blood loss anemia Code(s): D62 - Acute posthemorrhagic anemia Status: Acute (2) Hematemesis Code(s): K92.0 - Hematemesis Status: Acute (3) Cirrhosis Code(s): K74.60 - Unspecified cirrhosis of liver Status: Chronic (4) Hx of hepatitis C Code(s): Z86.19 - Personal history of other infectious and parasitic diseases Status: Chronic (5) MART (acute kidney injury) Code(s): N17.9 - Acute kidney failure, unspecified Status: Acute (6) Thrombocytopenia Code(s): D69.6 - Thrombocytopenia, unspecified Status: Acute - Plan Patient with chronic liver disease, now admitted with respiratory failure and Elevated BUN and Creatinine. Patient has MART, Urine Sodium is low, possible pre renal, unlikely Hepato-renal. Has Paracentesis done. Urine out put is low, Creatinine remain stable. Avoid Nephrotoxins, Follow the urine out put and BMP.
--- NOTE | 2018-09-23 20:48 | P.PNGI ---
Subjective Interval history: Patient remains intubated Physical Exam Vital signs: Vital Signs 09/22/18 20:45 09/22/18 21:00 09/22/18 21:04 Temperature Pulse Rate 70 72 Respiratory Rate 15 16 20 Blood Pressure 92/55 L 100/61 Pulse Oximetry 96 96 97 09/22/18 21:15 09/22/18 21:30 09/22/18 21:45 Temperature Pulse Rate 73 75 98 H Respiratory Rate 13 14 15 Blood Pressure 106/58 L 101/58 L 97/60 L Pulse Oximetry 96 96 95 09/22/18 22:00 09/22/18 22:15 09/22/18 22:30 Temperature Pulse Rate 91 H 81 78 Respiratory Rate 22 21 15 Blood Pressure 97/61 L 100/61 99/58 L Pulse Oximetry 95 96 96 09/22/18 22:45 09/22/18 23:00 09/22/18 23:15 Temperature Pulse Rate 77 75 75 Respiratory Rate 15 13 13 Blood Pressure 92/55 L 86/53 L 88/51 L Pulse Oximetry 96 96 97 09/22/18 23:30 09/22/18 23:45 09/23/18 00:00 Temperature 97.8 F Pulse Rate 75 75 74 Respiratory Rate 14 20 18 Blood Pressure 84/54 L 96/54 L 89/50 L Pulse Oximetry 97 96 97 09/23/18 00:09 09/23/18 00:15 09/23/18 00:30 Temperature Pulse Rate 76 74 Respiratory Rate 15 18 23 Blood Pressure 89/53 L 91/55 L Pulse Oximetry 96 95 95 09/23/18 00:45 09/23/18 01:00 09/23/18 01:15 Temperature Pulse Rate 76 76 75 Respiratory Rate 11 L 13 21 Blood Pressure 94/56 L 92/55 L 89/55 L Pulse Oximetry 96 96 96 09/23/18 01:30 09/23/18 01:45 09/23/18 02:00 Temperature Pulse Rate 75 75 75 Respiratory Rate 15 16 14 Blood Pressure 90/54 L 86/52 L 88/54 L Pulse Oximetry 97 96 97 09/23/18 02:15 09/23/18 02:30 09/23/18 02:45 Temperature Pulse Rate 74 75 75 Respiratory Rate 17 19 13 Blood Pressure 91/55 L 93/53 L 95/56 L Pulse Oximetry 97 97 97 09/23/18 03:00 09/23/18 03:15 09/23/18 03:30 Temperature Pulse Rate 83 80 76 Respiratory Rate 18 30 H 17 Blood Pressure 91/55 L 100/59 L 91/53 L Pulse Oximetry 96 96 97 09/23/18 03:45 09/23/18 04:00 09/23/18 04:15 Temperature 97.6 F Pulse Rate 78 80 81 Respiratory Rate 18 24 27 H Blood Pressure 96/51 L 97/54 L 100/58 L Pulse Oximetry 96 96 96 09/23/18 04:20 09/23/18 04:30 09/23/18 04:45 Temperature Pulse Rate 84 90 Respiratory Rate 14 26 H 25 H Blood Pressure 99/56 L 114/57 L Pulse Oximetry 97 96 96 09/23/18 05:00 09/23/18 05:15 09/23/18 05:30 Temperature Pulse Rate 94 H 87 87 Respiratory Rate 25 H 16 18 Blood Pressure 111/62 111/56 L 100/59 L Pulse Oximetry 95 95 96 09/23/18 05:45 09/23/18 06:00 09/23/18 06:15 Temperature Pulse Rate 96 H 84 82 Respiratory Rate 19 14 13 Blood Pressure 102/57 L 93/52 L 93/50 L Pulse Oximetry 95 94 L 95 09/23/18 07:00 09/23/18 07:52 09/23/18 08:00 Temperature 98.5 F Pulse Rate 163 H Respiratory Rate 14 22 Blood Pressure 124/57 L Pulse Oximetry 94 L 99 99 09/23/18 08:15 09/23/18 08:30 09/23/18 08:45 Temperature Pulse Rate 98 H 111 H 103 H Respiratory Rate 25 H 28 H 15 Blood Pressure 111/55 L 113/59 L 109/58 L Pulse Oximetry 94 L 94 L 95 09/23/18 09:00 09/23/18 09:45 09/23/18 10:00 Temperature Pulse Rate 85 88 87 Respiratory Rate 12 16 13 Blood Pressure 109/57 L 114/58 L 107/56 L Pulse Oximetry 95 95 94 L 09/23/18 10:15 09/23/18 10:30 09/23/18 10:45 Temperature Pulse Rate 92 H 86 86 Respiratory Rate 14 11 L 12 Blood Pressure 106/59 L 95/56 L 106/59 L Pulse Oximetry 94 L 94 L 94 L 09/23/18 11:00 09/23/18 11:15 09/23/18 11:20 Temperature Pulse Rate 109 H 86 Respiratory Rate 23 14 16 Blood Pressure 118/74 99/57 L Pulse Oximetry 94 L 93 L 93 L 09/23/18 11:30 09/23/18 11:45 09/23/18 12:00 Temperature 98.6 F Pulse Rate 86 89 88 Respiratory Rate 23 19 20 Blood Pressure 96/56 L 104/58 L 109/56 L Pulse Oximetry 93 L 94 L 94 L 09/23/18 12:15 09/23/18 12:30 09/23/18 12:45 Temperature Pulse Rate 86 87 86 Respiratory Rate 15 20 20 Blood Pressure 107/56 L 107/59 L 105/59 L Pulse Oximetry 95 95 96 09/23/18 13:00 09/23/18 13:15 09/23/18 13:30 Temperature Pulse Rate 149 H 114 H 139 H Respiratory Rate 19 22 20 Blood Pressure 111/55 L 114/57 L 101/57 L Pulse Oximetry 95 96 94 L 09/23/18 13:45 09/23/18 14:00 09/23/18 14:15 Temperature Pulse Rate 94 H 100 H 102 H Respiratory Rate 23 17 27 H Blood Pressure 117/56 L 138/61 117/55 L Pulse Oximetry 93 L 96 92 L 09/23/18 14:30 09/23/18 14:45 09/23/18 15:00 Temperature Pulse Rate 98 H 101 H 101 H Respiratory Rate 18 20 19 Blood Pressure 118/58 L 120/56 L 126/59 L Pulse Oximetry 91 L 91 L 91 L 09/23/18 15:15 09/23/18 15:30 09/23/18 15:45 Temperature Pulse Rate 98 H 97 H 99 H Respiratory Rate 15 19 15 Blood Pressure 114/58 L 111/59 L 113/57 L Pulse Oximetry 92 L 91 L 91 L 09/23/18 16:00 09/23/18 18:02 09/23/18 20:00 Temperature 100.0 F H Pulse Rate 100 H 101 H Respiratory Rate 22 15 Blood Pressure 118/55 L Pulse Oximetry 90 L 96 Intake & Output 09/23/18 09/23/18 09/24/18 06:59 18:59 06:59 Intake Total 3251.0 / 3251.0 1950.5 / 1950.5 90 / 90 Output Total 250 / 250 370 / 370 Balance 3001.0 / 3001.0 1580.5 / 1580.5 90 / 90 Weight 82 kg Intake: IV 3251.0 / 3251.0 1950.5 / 1950.5 90 / 90 D5W/LR Inj 1,000 ML @ 125 mls/ 2000 / 2000 1000 / 1000 hr IV.CONT .Q8H NALINI Rx#: [id number] Versed Inj 100 mg In 100 ml @ 2 100 / 100 MG/HR 2 mls/hr IV.CONT TITRATE PRN Rx#:[id number] SandoSTATIN Inj 500 MCG In NS 1001.0 / 1001.0 500.5 / 500.5 Inj 500 ML @ 50 MCG/HR 50.05 mls/hr IV.CONT .Q10H NALINI Rx#: [id number] Protonix Inj 80 MG In NS Inj 100 / 100 100 / 100 90 / 90 100 ML @ 10 mls/hr IV.CONT Q10H NALINI Rx#:[id number] Flexbumin 25% Inj 50 ML @ 60 50 / 50 mls/hr IV.SIG Q12H NALINI Rx#: [id number] Rocephin Inj 1,000 MG In NS Inj 100 / 100 100 ML @ 200 mls/hr IV.SIG Q24H NALINI Rx#:[id number] fentaNYL 10 mcg/mL Premix Drip 250 / 250 2,500 mcg In 250 ml @ 50 MCG/HR 5 mls/hr IV.SIG TITRATE PRN Rx #:[id number] Oral 0 / 0 Output: Urine Amount (Catheter) 250 / 250 370 / 370 Indwelling Temp Sensing 250 / 250 370 / 370 Catheter Other: Date of Last Bowel Movement 09/22/18 09/23/17 # Bowel Movements 1 # Incontinent Bowel Movements 1 - Constitutional Comments: Patient is intubated - Routine HEENT Exam Head: Present: normocephalic, atraumatic - Routine Neck Exam Present: supple, trachea midline - Routine Respiratory Exam Present: patient mechanically ventilated - Routine Cardiovascular Exam Present: RRR, S1, S2 - Routine Abdominal Exam Present: soft, normoactive bowel sounds, distended. Absent: tenderness - Routine Extremities Exam Present: pulses intact - Routine Skin Exam Present: intact, jaundice - Urinary Catheter Management Indwelling Temp Sensing Catheter Cath placed during this visit: yes Urethral indwelling: Yes Reason for continuing: Hourly intake/output Insertion date: 09/21/18 Insertion time: 20:00 Results - Labs CBC & Chem 7: 09/23/18 11:15 09/23/18 07:23 Laboratory Results - last 24 hr 09/21/18 09/21/18 09/22/18 19:20 19:29 21:21 WBC RBC Hgb Hct MCV MCH MCHC RDW Plt Count MPV Prelim Diff (Auto) Neut % (Auto) Lymph % (Auto) [place] % (Auto) Eos % (Auto) Baso % (Auto) Neut # (Auto) Lymph # (Auto) [place] # (Auto) Eos # (Auto) Baso # (Auto) WBC Differential Diff Scan Differential Comment Platelet Estimate Platelet Morphology Ovalocytes Acanthocytes (Spur) PT INR Sodium Potassium Chloride Carbon Dioxide Anion Gap BUN Creatinine Estimated GFR POC Glucose 131 H Random Glucose Calcium Phosphorus Magnesium Total Bilirubin AST ALT Alkaline Phosphatase Total Protein Albumin Urine Osmolality Ur Random Sodium Blood Type A Positive Antibody Screen Negative MTS Gel Crossmatch See Detail Blood Bank Comment Bld Prod Order Comment 09/22/18 09/22/18 09/22/18 23:35 23:35 23:55 WBC RBC Hgb 7.3 L Hct MCV MCH MCHC RDW Plt Count MPV Prelim Diff (Auto) Neut % (Auto) Lymph % (Auto) [place] % (Auto) Eos % (Auto) Baso % (Auto) Neut # (Auto) Lymph # (Auto) [place] # (Auto) Eos # (Auto) Baso # (Auto) WBC Differential Diff Scan Differential Comment Platelet Estimate Platelet Morphology Ovalocytes Acanthocytes (Spur) PT INR Sodium Potassium Chloride Carbon Dioxide Anion Gap BUN Creatinine Estimated GFR POC Glucose Random Glucose Calcium Phosphorus Magnesium Total Bilirubin AST ALT Alkaline Phosphatase Total Protein Albumin Urine Osmolality 654 Ur Random Sodium Less than 5 Blood Type Antibody Screen MTS Gel Crossmatch Blood Bank Comment Bld Prod Order Comment 09/23/18 09/23/18 09/23/18 07:10 07:23 07:23 WBC 7.9 RBC 2.71 L Hgb 7.7 L Hct 22.7 L MCV 83.8 MCH 28.5 MCHC 34.0 RDW 16.8 Plt Count 75 L MPV 8.6 Prelim Diff (Auto) Slide review pending Neut % (Auto) 83.1 H Lymph % (Auto) 7.2 L [place] % (Auto) 9.0 H Eos % (Auto) 0.3 Baso % (Auto) 0.4 Neut # (Auto) 6.6 Lymph # (Auto) 0.6 L [place] # (Auto) 0.7 Eos # (Auto) 0.0 Baso # (Auto) 0.0 WBC Differential . Diff Scan Auto diff confirmed Differential Comment . Platelet Estimate Low L Platelet Morphology Normal Ovalocytes 1+ H Acanthocytes (Spur) Occ H PT 15.2 H INR 1.5 Sodium 147 H Potassium 4.4 Chloride 114 H Carbon Dioxide 24.4 Anion Gap 9 BUN 60 H Creatinine 1.98 H Estimated GFR 33 L POC Glucose Random Glucose 114 H Calcium 7.9 L Phosphorus 2.8 Magnesium 1.9 Total Bilirubin 1.1 H AST 76 H ALT 35 Alkaline Phosphatase 63 Total Protein 5.1 L Albumin 2.4 L Urine Osmolality Ur Random Sodium Blood Type Antibody Screen MTS Gel Crossmatch Blood Bank Comment Bld Prod Order Comment 09/23/18 09/23/18 09/23/18 11:15 11:30 17:56 WBC RBC Hgb 8.0 L Hct MCV MCH MCHC RDW Plt Count MPV Prelim Diff (Auto) Neut % (Auto) Lymph % (Auto) [place] % (Auto) Eos % (Auto) Baso % (Auto) Neut # (Auto) Lymph # (Auto) [place] # (Auto) Eos # (Auto) Baso # (Auto) WBC Differential Diff Scan Differential Comment Platelet Estimate Platelet Morphology Ovalocytes Acanthocytes (Spur) PT INR Sodium Potassium Chloride Carbon Dioxide Anion Gap BUN Creatinine Estimated GFR POC Glucose 115 H 111 H Random Glucose Calcium Phosphorus Magnesium Total Bilirubin AST ALT Alkaline Phosphatase Total Protein Albumin Urine Osmolality Ur Random Sodium Blood Type Antibody Screen MTS Gel Crossmatch Blood Bank Comment Bld Prod Order Comment - Imaging Impressions Paracentesis CT 09/22/18 14:08 CONCLUSION: 1. Uncomplicated CT Guided paracentesis. Abdomen/Bladder Ultrasound 09/23/18 00:00 CONCLUSION: 1. Echogenic kidneys consistent with medical renal disease. 2. Cirrhotic liver with ascites. 3. Small right pleural effusion, likely hepatic hydrothorax. Assessment and Plan (1) Hematemesis Status: Acute Code(s): K92.0 - Hematemesis (2) Cirrhosis Status: Chronic Code(s): K74.60 - Unspecified cirrhosis of liver (3) Hx of hepatitis C Status: Chronic Code(s): Z86.19 - Personal history of other infectious and parasitic diseases (4) Thrombocytopenia Status: Acute Code(s): D69.6 - Thrombocytopenia, unspecified - Plan 09/22/2018 EGD due to melena Hematemesis and history of cirrhosis 09/21/2018 EGD with band ligation of varices : 1. Large blood clot/blood in the fundus. Antrum normal 2. Blood in duodenum 3. Retroflexed views revealed large blood clot -Total bili 1.1 AST 40 ALT 34 alk phos 68 ammonia 43 hemoglobin 8.2 -No noted bleeding per nursing 09/23/2018 Post EGD 09/21/2018 showing large blood clots in the fundus antrum was normal there was blood in the duodenal retroflexed views revealed large blood clot recommendations for FFP platelets IV octreotide and Protonix. Plan -N.p.o. -Continue lactulose enemas -Monitor labs H&H ammonia level -Monitor for active bleeding and notify GI -continue Protonix drip and can change to IV push twice daily -To decrease IV octreotide to 25 mcg and then DC in the morning -Hold anticoagulants -Avoid hepatotoxins -Supportive care -Further recommendations to follow This patient has been seen by myself and Dr. Stewart and this note is written on his behalf - Attending Attestation Dr. Stewart
[2018-09-23] MEDS: Pantoprazole Inj 40 MG Vial IV.PUSH SCH (20:56)
[2018-09-23 21:43] LABS: Hematocrit 22.8 % (39.0-51.0); Hemoglobin 7.7 gm/dL (13.0-17.0)
[2018-09-24] MEDS: Insulin NovoLOG Aspart Correctional Sugar Inj SQ SCH ×4 (00:13→17:39)
[2018-09-24] MEDS: Octreotide Inj 500 MCG in Sodium Chlor 0.9% Inj 500 ML IV.CONT SCH ×2 (06:00→08:31)
[2018-09-24] MEDS: Oral Hygiene Kit OROPHARYNG SCH ×3 (06:01→15:24)
[2018-09-24] MEDS: Chlorhexidine Gluconate 2% 1 Pack (2 Cloths) TOPICAL SCH (06:01)
[2018-09-24] MEDS: Dextrose 5%/Lactated Ringer's 1,000 ML IV.CONT SCH ×3 (06:02→22:36)
--- NOTE | 2018-09-24 06:08 | XR ---
EXAM DATE: 09/24/2018 5:53 AM EST AGE/SEX: 78 years / Male INDICATIONS: Respiratory failure. CLINICAL DATA: This is the patient's subsequent encounter. Patient reports that signs and symptoms h ave been present for 3 days and indicates a pain score of Nonresponsive. MEDICAL/SURGICAL HISTORY: Anemia. Cirrhosis. Hepatitis C. Renal failure. Stroke. Carcinoma, liver. Appendectomy. COMPARISON: [facility] – [place]ST 1V SINGLE AP, 09/21/2018. . FINDINGS: A single AP view of the chest demonstrates stable elevation of the right hemidiaphragm. Mild atelecta tic changes above the right hemidiaphragm. Lungs are otherwise clear. Endotracheal tube remains appro priately positioned above the milan. Heart size is normal. Degenerative spurring of the dorsal spine .. CONCLUSION: 1. Stable elevation of the right hemidiaphragm. Mild atelectatic changes in the right lung base. 2. Stable position of endotracheal tube. Electronically signed by: Ancelmo Bernardo MD Board Certified Radiologist 09/24/2018 6:07 AM EST
[2018-09-24] MEDS ORDERED: Digoxin Inj 500 MCG/2 ML Ampul IV.PUSH ONE (06:43)
[2018-09-24] MEDS ORDERED: Magnesium Sulfate Inj 2 GM in Sodium Chlor 0.9% Inj 96 ML IV.SIG ONE (06:43)
--- NOTE | 2018-09-24 07:34 | P.PNCC ---
Subjective Subjective Remarks/Hospital Course: 09/22: Overnight the patient underwent EGD 5 columns of esophageal varices was located but no bleeding was noted per large blood clot was noted in the fundus and the duodenum 0 hemoglobin and hematocrits continue last hemoglobin noted to be 7.9. The patient continues on Protonix and octreotide infusions currently. Patient was noted to have a low normal blood pressure on propofol infusion this is been discontinued. Versed and fentanyl infusions initiated to maintain ventilator synchrony. Patient noted to have acute kidney injury creatinine downtrending slightly peer nephrology has been consulted appreciate recommendations per patient with known ascites last known paracentesis approximately 4 months ago peer INR within normal limits invasive radiology has been consulted for possible paracentesis. 09/23: The patient underwent CT-guided paracentesis yesterday 5.2 L removed the patient's FiO2 requirements continue to decrease PEEP has been decreased down to 5 FiO2 of 40%. Urine output 770 cc in 24hr. Lactulose enemas have been added to medication regimen twice daily secondary to hyperammonemia. SUBJECTIVE: 09/24: Afebrile. Continues with low urine output. Ventilator settings stable. Went to A. fib with RVR. Laboratories pending. EKG pending. On fentanyl drip sedation 100 mcg an hour. Objective Vital Signs / I&O: Vital Signs 09/23/18 07:52 09/23/18 08:00 09/23/18 08:15 Temperature 98.5 F Pulse Rate 163 H 98 H Respiratory Rate 14 22 25 H Blood Pressure 124/57 L 111/55 L Pulse Oximetry 99 99 94 L 09/23/18 08:30 09/23/18 08:45 09/23/18 09:00 Temperature Pulse Rate 111 H 103 H 85 Respiratory Rate 28 H 15 12 Blood Pressure 113/59 L 109/58 L 109/57 L Pulse Oximetry 94 L 95 95 09/23/18 09:45 09/23/18 10:00 09/23/18 10:15 Temperature Pulse Rate 88 87 92 H Respiratory Rate 16 13 14 Blood Pressure 114/58 L 107/56 L 106/59 L Pulse Oximetry 95 94 L 94 L 09/23/18 10:30 09/23/18 10:45 09/23/18 11:00 Temperature Pulse Rate 86 86 109 H Respiratory Rate 11 L 12 23 Blood Pressure 95/56 L 106/59 L 118/74 Pulse Oximetry 94 L 94 L 94 L 09/23/18 11:15 09/23/18 11:20 09/23/18 11:30 Temperature Pulse Rate 86 86 Respiratory Rate 14 16 23 Blood Pressure 99/57 L 96/56 L Pulse Oximetry 93 L 93 L 93 L 09/23/18 11:45 09/23/18 12:00 09/23/18 12:15 Temperature 98.6 F Pulse Rate 89 88 86 Respiratory Rate 19 20 15 Blood Pressure 104/58 L 109/56 L 107/56 L Pulse Oximetry 94 L 94 L 95 09/23/18 12:30 09/23/18 12:45 09/23/18 13:00 Temperature Pulse Rate 87 86 149 H Respiratory Rate 20 20 19 Blood Pressure 107/59 L 105/59 L 111/55 L Pulse Oximetry 95 96 95 09/23/18 13:15 09/23/18 13:30 09/23/18 13:45 Temperature Pulse Rate 114 H 139 H 94 H Respiratory Rate 22 20 23 Blood Pressure 114/57 L 101/57 L 117/56 L Pulse Oximetry 96 94 L 93 L 09/23/18 14:00 09/23/18 14:15 09/23/18 14:30 Temperature Pulse Rate 100 H 102 H 98 H Respiratory Rate 17 27 H 18 Blood Pressure 138/61 117/55 L 118/58 L Pulse Oximetry 96 92 L 91 L 09/23/18 14:45 09/23/18 15:00 09/23/18 15:15 Temperature Pulse Rate 101 H 101 H 98 H Respiratory Rate 20 19 15 Blood Pressure 120/56 L 126/59 L 114/58 L Pulse Oximetry 91 L 91 L 92 L 09/23/18 15:30 09/23/18 15:45 09/23/18 16:00 Temperature 100.0 F H Pulse Rate 97 H 99 H 100 H Respiratory Rate 19 15 22 Blood Pressure 111/59 L 113/57 L 118/55 L Pulse Oximetry 91 L 91 L 90 L 09/23/18 18:02 09/23/18 19:00 09/23/18 19:30 Temperature Pulse Rate 101 H 92 H 92 H Respiratory Rate 9 L 11 L Blood Pressure 102/57 L 110/56 L Pulse Oximetry 96 94 L 09/23/18 20:00 09/23/18 20:30 09/23/18 21:00 Temperature 98.2 F Pulse Rate 93 H 92 H 92 H Respiratory Rate 12 11 L 12 Blood Pressure 110/57 L 110/57 L 107/57 L Pulse Oximetry 94 L 95 95 09/23/18 22:00 09/23/18 23:00 09/24/18 00:00 Temperature 98.3 F 98.3 F 98.5 F Pulse Rate 95 H 87 85 Respiratory Rate 18 11 L 18 Blood Pressure 107/53 L 91/55 L 105/54 L Pulse Oximetry 95 96 96 09/24/18 01:00 09/24/18 01:21 09/24/18 02:00 Temperature 98.5 F 98.5 F Pulse Rate 81 78 Respiratory Rate 15 15 16 Blood Pressure 104/57 L 92/51 L Pulse Oximetry 97 97 97 09/24/18 03:00 09/24/18 04:00 09/24/18 04:44 Temperature 98.5 F 98.4 F Pulse Rate 82 77 Respiratory Rate 19 16 19 Blood Pressure 108/57 L 103/57 L Pulse Oximetry 97 97 97 09/24/18 05:00 09/24/18 06:00 Temperature 98.4 F 98.4 F Pulse Rate 74 127 H Respiratory Rate 17 13 Blood Pressure 102/56 L 142/72 H Pulse Oximetry 97 97 Intake & Output 09/23/18 09/24/18 09/24/18 18:59 06:59 18:59 Intake Total 2740.5 / 2740.5 Output Total 370 / 370 315 / 315 Balance 1630.5 / 1630.5 2425.5 / 2425.5 Weight 83.5 kg Intake: IV 2740.5 / 2740.5 D5W/LR Inj 1,000 ML @ 125 mls/ 1000 / 1000 1999 hr IV.CONT .Q8H [facility] Rx#: [id number] Versed Inj 100 mg In 100 ml @ 2 100 / 100 MG/HR 2 mls/hr IV.CONT TITRATE PRN Rx#:[id number] SandoSTATIN Inj 500 MCG In NS 500.5 / 500.5 500.5 / 500.5 Inj 500 ML @ 25 MCG/HR 25.02 mls/hr IV.CONT .Q20H1M [facility] Rx#: [id number] Protonix Inj 80 MG In NS Inj 100 / 100 90 / 90 100 ML @ 10 mls/hr IV.CONT Q10H [facility] Rx#:[id number] Flexbumin 25% Inj 50 ML @ 60 50 / 50 50 / 50 mls/hr IV.SIG Q12H [facility] Rx#: [id number] Rocephin Inj 1,000 MG In NS Inj 100 / 100 100 ML @ 200 mls/hr IV.SIG Q24H [facility] Rx#:[id number] fentaNYL 10 mcg/mL Premix Drip 250 / 250 2,500 mcg In 250 ml @ 50 MCG/HR 5 mls/hr IV.SIG TITRATE PRN Rx #:[id number] Oral 0 / 0 0 / 0 Output: Urine Amount (Catheter) 370 / 370 315 / 315 Indwelling Temp Sensing 370 / 370 315 / 315 Catheter Other: Date of Last Bowel Movement 09/23/17 09/22/18 # Bowel Movements 1 # Incontinent Bowel Movements 1 Result Diagrams: 09/23/18 20:36 09/23/18 07:23 Imaging: Chest X-Ray 09/21/18 21:44 CONCLUSION: Endotracheal tube in good position. Bibasal airspace disease. No prior study for comparison. Paracentesis CT 09/22/18 14:08 CONCLUSION: 1. Uncomplicated CT Guided paracentesis. Abdomen/Bladder Ultrasound 09/23/18 00:00 CONCLUSION: 1. Echogenic kidneys consistent with medical renal disease. 2. Cirrhotic liver with ascites. 3. Small right pleural effusion, likely hepatic hydrothorax. Chest X-Ray 09/24/18 04:00 CONCLUSION: 1. Stable elevation of the right hemidiaphragm. Mild atelectatic changes in the right lung base. 2. Stable position of endotracheal tube. Objective Remarks: GENERAL: This is a well-developed well-nourished chronically ill-appearing, currently intubated and sedated SKIN: Warm and dry. Ecchymosis noted bilateral forearm HEAD: Atraumatic. Normocephalic. EYES: Pupils equal and round. No scleral icterus. No injection or drainage. ENT: No nasal bleeding or discharge. Mucous membranes pink and moist. NECK: Trachea midline. No JVD. CARDIOVASCULAR: IRR. S1, S2. No S4. RESPIRATORY: No accessory muscle use. Clear to auscultation. Breath sounds equal bilaterally. GASTROINTESTINAL: Abdomen soft, umbilical hernia noted reducible, mildly distended. No guarding. Resolving abdominal rash with multiple pinpoint lesions back and legs MUSCULOSKELETAL: Extremities without clubbing, cyanosis, or edema. No obvious deformities. Noted 1+ bilateral pedal edema NEUROLOGICAL: Cranial nerves II through XII grossly intact. Moves all 4 extremities spontaneously. Procedures: 09/21- EGD 09/22-CT guided paracentesis 2.5 L removed Assessment and Plan - Assessment and Plan Plan: NEURO/PSYCH: History of stroke with residual aphasia Midazolam and fentanyl infusions currently at 100 mg an hour to maintain ventilator synchrony Goal of RASS -2. Daily sedation vacation RESP: Acute respiratory failure PRVCD 15 100/1./ Ventilator bundle Albuterol/ipratropium aerosols every 6 hours with albuterol aerosols every 2 hours as needed dyspnea To remain intubated for airway protection while observing for ongoing UGI bleeding. CXR clear with satisfactory ETT position. Spontaneous breathing trials when clinically indicated CV: Essential hypertension Atrial fibrillation On amlodipine unknown dosage at home. Will hold. D5 LR 125 ml/hr Currently not requiring vasopressors. Check EKG, CPK, troponin TSH stat. A.m. electrolytes pending. Digoxin 500 mg x1 now. Holding chlorthalidone 5 mg daily. GI: Upper GI bleed secondary to esophageal varices now s/p banding Hx Hep C Cirrhosis Hepatocellular carcinoma s/p TACE procedure Recurrent ascites Hyperammonemia Hypoalbuminemia N.p.o. status. No NG/OG tube secondary to varices Currently on pantoprazole 40 mg IV twice daily Octreotide drip currently at 25 mcg an hour. To be weaned off today per gastroenterology notes Serial hemoglobin and hematocrit last document 7.7 09/21 GI consulted emergently, Dr. Beverly. Esophageal varices banded. Reportedly no active bleeding but unable to rule out gastric varices due to presence of clots in the stomach. 09/22paracentesis 5.2 L removed Lactulose enemas twice daily. Recheck ammonia level in a.m. 09/25. Patient is on scheduled lactulose 30 cc 3 times daily at home. FEN/RENAL: ?MART (unknown baseline creatinine) Oliguria Burnett in place. Monitor I/O. Monitor electrolytes and replace as indicated per ICU electrolyte replacement protocol. IVF as per above. Albumin 12.5 twice daily Nephrology following Patient is on scheduled potassium chloride 20 mEq twice daily at home ID: Tinea corporis Ceftriaxone for SBP prophylaxis. Clotrimazole 1% cream bid. Patient was on a prednisone taper and triamcinolone acetate 0.1% and Vanicream topical daily to affected areas twice daily at home. Sputum culture pending Procedure with doxycycline hyclate 10 mg twice daily with food HEME: Acute blood loss anemia/normocytic Thrombocytopenia Coagulopathy with elevated INR Transfuse 3 units PRBCs, 1 unit FFP and 1 unit of platelets since admission Received [id number] mg IV Follow-up coags and fibrinogen and serial hemoglobin. ENDO: Sliding scale insulin aspart insulin/low regimen to maintain euglycemia every 6 hours Check TSH And vitamin D3. PROPH: SCDs for DVT prophylaxis. Pharmacologic DVT prophylaxis is contraindicated. Pantoprazole 40 mg IV twice daily ACCESS: [address] Level 3 follow-up
[2018-09-24] MEDS: Chlorhexidine 0.12% Oral Kit 15 ML UDC OROPHARYNG SCH ×2 (07:38→20:15)
[2018-09-24 07:49] LABS: Baso % (Auto) 0.2 % (0.0-2.0); Eos # (Auto) 0.1 th/mm3 (0.0-0.4); Eos % (Auto) 0.7 % (0.0-4.0); Hematocrit 22.1 % (39.0-51.0); Hemoglobin 7.6 gm/dL (13.0-17.0); Lymph # (Auto) 0.6 th/mm3 (1.0-4.8); Lymph % (Auto) 8.4 % (9.0-44.0); Mean Corpuscular HGB Conc 34.5 % (32.0-36.0); Mean Corpuscular Hemoglobin 29.9 pg (27.0-34.0); Mean Corpuscular Volume 86.5 fL (80.0-100.0); Mono # (Auto) 0.5 th/mm3 (0.0-0.9); Mono % (Auto) 7.3 % (0.0-8.0); Neut # (Auto) 6.2 th/mm3 (1.8-7.7); Neut % (Auto) 83.4 % (16.0-70.0); Platelet Count 48 th/mm3 (150-450); Red Blood Count 2.55 mil/mm3 (4.50-5.90); Red Cell Distribution Width 16.4 % (11.6-17.2); White Blood Count 7.4 th/mm3 (4.0-11.0)
[2018-09-24] MEDS: Artificial Tears Opth Drops 15 ML Bottle EACH EYE SCH ×2 (07:50→15:24)
[2018-09-24] MEDS: Midazolam 100 MG/100 ML Inj 100 MG/100 ML BAG IV.CONT PRN (07:52)
[2018-09-24] MEDS: Clotrimazole 1% Cream 15 GM Tube TOPICAL SCH ×2 (07:59→20:16)
[2018-09-24 08:00] LABS: Calcium 7.9 mg/dL (8.5-10.1); Carbon Dioxide 25.1 meq/L (21.0-32.0); Potassium 4.1 meq/L (3.5-5.1)
[2018-09-24] MEDS: Senna/Docusate Sodium 8.6/50 MG Tablet PO SCH ×2 (08:00→20:17)
[2018-09-24] MEDS: Pantoprazole Inj 40 MG Vial IV.PUSH SCH ×2 (08:00→20:17)
[2018-09-24 08:01] LABS: Magnesium 1.9 mg/dL (1.5-2.5); Phosphorus 2.8 mg/dL (2.5-4.9)
[2018-09-24 08:15] LABS: Thyroid Stimulating Hormone 0.163 uIU/mL (0.358-3.740); Troponin I 0.02 ng/mL (0.02-0.05)
[2018-09-24 08:27] LABS: CKMB Percent 0.2 % (0.0-4.0); Creatine Kinase MB 3.4 ng/mL (0.5-3.6)
[2018-09-24 08:39] LABS: Acanthocytes Occ; Ovalocytes 1+; Platelet Morphology Normal (Normal)
--- NOTE | 2018-09-24 09:53 | P.PNGI ---
Subjective Interval history: Patient intubated No complaints of bleeding from RN bedside Physical Exam Vital signs: Vital Signs 09/23/18 10:00 09/23/18 10:15 09/23/18 10:30 Temperature Pulse Rate 87 92 H 86 Respiratory Rate 13 14 11 L Blood Pressure 107/56 L 106/59 L 95/56 L Pulse Oximetry 94 L 94 L 94 L 09/23/18 10:45 09/23/18 11:00 09/23/18 11:15 Temperature Pulse Rate 86 109 H 86 Respiratory Rate 12 23 14 Blood Pressure 106/59 L 118/74 99/57 L Pulse Oximetry 94 L 94 L 93 L 09/23/18 11:20 09/23/18 11:30 09/23/18 11:45 Temperature Pulse Rate 86 89 Respiratory Rate 16 23 19 Blood Pressure 96/56 L 104/58 L Pulse Oximetry 93 L 93 L 94 L 09/23/18 12:00 09/23/18 12:15 09/23/18 12:30 Temperature 98.6 F Pulse Rate 88 86 87 Respiratory Rate 20 15 20 Blood Pressure 109/56 L 107/56 L 107/59 L Pulse Oximetry 94 L 95 95 09/23/18 12:45 09/23/18 13:00 09/23/18 13:15 Temperature Pulse Rate 86 149 H 114 H Respiratory Rate 20 19 22 Blood Pressure 105/59 L 111/55 L 114/57 L Pulse Oximetry 96 95 96 09/23/18 13:30 09/23/18 13:45 09/23/18 14:00 Temperature Pulse Rate 139 H 94 H 100 H Respiratory Rate 20 23 17 Blood Pressure 101/57 L 117/56 L 138/61 Pulse Oximetry 94 L 93 L 96 09/23/18 14:15 09/23/18 14:30 09/23/18 14:45 Temperature Pulse Rate 102 H 98 H 101 H Respiratory Rate 27 H 18 20 Blood Pressure 117/55 L 118/58 L 120/56 L Pulse Oximetry 92 L 91 L 91 L 09/23/18 15:00 09/23/18 15:15 09/23/18 15:30 Temperature Pulse Rate 101 H 98 H 97 H Respiratory Rate 19 15 19 Blood Pressure 126/59 L 114/58 L 111/59 L Pulse Oximetry 91 L 92 L 91 L 09/23/18 15:45 09/23/18 16:00 09/23/18 18:02 Temperature 100.0 F H Pulse Rate 99 H 100 H 101 H Respiratory Rate 15 22 Blood Pressure 113/57 L 118/55 L Pulse Oximetry 91 L 90 L 09/23/18 19:00 09/23/18 19:30 09/23/18 20:00 Temperature 98.2 F Pulse Rate 92 H 92 H 93 H Respiratory Rate 9 L 11 L 12 Blood Pressure 102/57 L 110/56 L 110/57 L Pulse Oximetry 96 94 L 94 L 09/23/18 20:30 09/23/18 21:00 09/23/18 22:00 Temperature 98.3 F Pulse Rate 92 H 92 H 95 H Respiratory Rate 11 L 12 18 Blood Pressure 110/57 L 107/57 L 107/53 L Pulse Oximetry 95 95 95 09/23/18 23:00 09/24/18 00:00 09/24/18 01:00 Temperature 98.3 F 98.5 F 98.5 F Pulse Rate 87 85 81 Respiratory Rate 11 L 18 15 Blood Pressure 91/55 L 105/54 L 104/57 L Pulse Oximetry 96 96 97 09/24/18 01:21 09/24/18 02:00 09/24/18 03:00 Temperature 98.5 F 98.5 F Pulse Rate 78 82 Respiratory Rate 15 16 19 Blood Pressure 92/51 L 108/57 L Pulse Oximetry 97 97 97 09/24/18 04:00 09/24/18 04:44 09/24/18 05:00 Temperature 98.4 F 98.4 F Pulse Rate 77 74 Respiratory Rate 16 19 17 Blood Pressure 103/57 L 102/56 L Pulse Oximetry 97 97 97 09/24/18 06:00 09/24/18 08:48 09/24/18 08:51 Temperature 98.4 F Pulse Rate 127 H 74 Respiratory Rate 13 15 21 Blood Pressure 142/72 H Pulse Oximetry 97 97 Intake & Output 09/23/18 09/24/18 09/24/18 18:59 06:59 18:59 Intake Total 2740.5 / 2740.5 606 / 606 Output Total 370 / 370 315 / 315 105 / 105 Balance 1630.5 / 1630.5 2425.5 / 2425.5 501 / 501 Weight 83.5 kg Intake: IV 1999.5 2740.5 / 2740.5 606 / 606 D5W/LR Inj 1,000 ML @ 125 mls/ 1000 / 1000 1999 / 1999 hr IV.CONT .Q8H [facility] Rx#: [id number] Versed Inj 100 mg In 100 ml @ 2 100 / 100 102 / 102 MG/HR 2 mls/hr IV.CONT TITRATE PRN Rx#:[id number] SandoSTATIN Inj 500 MCG In NS 500.5 / 500.5 500.5 / 500.5 504 / 504 Inj 500 ML @ 25 MCG/HR 25.02 mls/hr IV.CONT .Q20H1M [facility] Rx#: [id number] Protonix Inj 80 MG In NS Inj 100 / 100 90 / 90 100 ML @ 10 mls/hr IV.CONT Q10H [facility] Rx#:[id number] Flexbumin 25% Inj 50 ML @ 60 50 / 50 50 / 50 mls/hr IV.SIG Q12H [facility] Rx#: [id number] Rocephin Inj 1,000 MG In NS Inj 100 / 100 100 ML @ 200 mls/hr IV.SIG Q24H [facility] Rx#:[id number] fentaNYL 10 mcg/mL Premix Drip 250 / 250 2,500 mcg In 250 ml @ 50 MCG/HR 5 mls/hr IV.SIG TITRATE PRN Rx #:[id number] Oral 0 / 0 0 / 0 0 / 0 Output: Urine Amount (Catheter) 370 / 370 315 / 315 105 / 105 Indwelling Temp Sensing 370 / 370 315 / 315 105 / 105 Catheter Other: Date of Last Bowel Movement 09/23/17 09/22/18 # Bowel Movements 1 # Incontinent Bowel Movements 1 - Routine HEENT Exam Head: Present: normocephalic, atraumatic - Routine Neck Exam Present: supple - Routine Respiratory Exam Present: patient mechanically ventilated - Routine Cardiovascular Exam Present: RRR, S1, S2 - Routine Abdominal Exam Present: soft, normoactive bowel sounds. Absent: tenderness, distended Comments: Patient is on lactulose enema - Routine Extremities Exam Present: pulses intact, normal capillary refill - Routine Skin Exam Present: intact Comments: Tinea corporis on the chest - Urinary Catheter Management Indwelling Temp Sensing Catheter Cath placed during this visit: yes Urethral indwelling: Yes Reason for continuing: Hourly intake/output Insertion date: 09/21/18 Insertion time: 20:00 Results - Labs CBC & Chem 7: 09/24/18 14:42 09/24/18 07:09 Laboratory Results - last 24 hr 09/21/18 09/21/18 09/23/18 19:20 19:20 11:15 WBC RBC Hgb 8.0 L Hct MCV MCH MCHC RDW Plt Count MPV Prelim Diff (Auto) Neut % (Auto) Lymph % (Auto) Gove % (Auto) Eos % (Auto) Baso % (Auto) Neut # (Auto) Lymph # (Auto) Gove # (Auto) Eos # (Auto) Baso # (Auto) WBC Differential Diff Scan Differential Comment Platelet Estimate Platelet Morphology Ovalocytes Acanthocytes (Spur) Keratocytes Sodium Potassium Chloride Carbon Dioxide Anion Gap BUN Creatinine Estimated GFR POC Glucose Random Glucose Calcium Phosphorus Magnesium Ammonia Total Creatine Kinase CK-MB (CK-2) CK-MB (CK-2) % Troponin I TSH MTS Gel Crossmatch See Detail See Detail 09/23/18 09/23/18 09/23/18 11:30 17:56 20:36 WBC RBC Hgb 7.7 L Hct 22.8 L MCV MCH MCHC RDW Plt Count MPV Prelim Diff (Auto) Neut % (Auto) Lymph % (Auto) Gove % (Auto) Eos % (Auto) Baso % (Auto) Neut # (Auto) Lymph # (Auto) Gove # (Auto) Eos # (Auto) Baso # (Auto) WBC Differential Diff Scan Differential Comment Platelet Estimate Platelet Morphology Ovalocytes Acanthocytes (Spur) Keratocytes Sodium Potassium Chloride Carbon Dioxide Anion Gap BUN Creatinine Estimated GFR POC Glucose 115 H 111 H Random Glucose Calcium Phosphorus Magnesium Ammonia Total Creatine Kinase CK-MB (CK-2) CK-MB (CK-2) % Troponin I TSH MTS Gel Crossmatch 09/23/18 09/24/18 09/24/18 23:54 06:04 07:09 WBC 7.4 RBC 2.55 L Hgb 7.6 L Hct 22.1 L MCV 86.5 MCH 29.9 MCHC 34.5 RDW 16.4 Plt Count 48 L D MPV 10.0 Prelim Diff (Auto) Slide review pending Neut % (Auto) 83.4 H Lymph % (Auto) 8.4 L Gove % (Auto) 7.3 Eos % (Auto) 0.7 Baso % (Auto) 0.2 Neut # (Auto) 6.2 Lymph # (Auto) 0.6 L Gove # (Auto) 0.5 Eos # (Auto) 0.1 Baso # (Auto) 0.0 WBC Differential . Diff Scan Auto diff confirmed Differential Comment . Platelet Estimate Low L Platelet Morphology Normal Ovalocytes 1+ H Acanthocytes (Spur) Occ H Keratocytes Occ H Sodium Potassium Chloride Carbon Dioxide Anion Gap BUN Creatinine Estimated GFR POC Glucose 159 H 145 H Random Glucose Calcium Phosphorus Magnesium Ammonia Total Creatine Kinase CK-MB (CK-2) CK-MB (CK-2) % Troponin I TSH MTS Gel Crossmatch 09/24/18 09/24/18 09/24/18 07:09 07:09 07:09 WBC RBC Hgb Hct MCV MCH MCHC RDW Plt Count MPV Prelim Diff (Auto) Neut % (Auto) Lymph % (Auto) Gove % (Auto) Eos % (Auto) Baso % (Auto) Neut # (Auto) Lymph # (Auto) Gove # (Auto) Eos # (Auto) Baso # (Auto) WBC Differential Diff Scan Differential Comment Platelet Estimate Platelet Morphology Ovalocytes Acanthocytes (Spur) Keratocytes Sodium 148 H Potassium 4.1 Chloride 114 H Carbon Dioxide 25.1 Anion Gap 9 BUN 64 H Creatinine 1.92 H Estimated GFR 34 L POC Glucose Random Glucose 138 H Calcium 7.9 L Phosphorus 2.8 Magnesium 1.9 Ammonia 109 H Total Creatine Kinase CK-MB (CK-2) CK-MB (CK-2) % Troponin I TSH MTS Gel Crossmatch 09/24/18 07:09 WBC RBC Hgb Hct MCV MCH MCHC RDW Plt Count MPV Prelim Diff (Auto) Neut % (Auto) Lymph % (Auto) Gove % (Auto) Eos % (Auto) Baso % (Auto) Neut # (Auto) Lymph # (Auto) Gove # (Auto) Eos # (Auto) Baso # (Auto) WBC Differential Diff Scan Differential Comment Platelet Estimate Platelet Morphology Ovalocytes Acanthocytes (Spur) Keratocytes Sodium Potassium Chloride Carbon Dioxide Anion Gap BUN Creatinine Estimated GFR POC Glucose Random Glucose Calcium Phosphorus Magnesium Ammonia Total Creatine Kinase 1370 H CK-MB (CK-2) 3.4 CK-MB (CK-2) % 0.2 Troponin I 0.02 TSH 0.163 L MTS Gel Crossmatch Microbiology 09/23/18 20:30 Sputum - Endotracheal Gram Stain - Final - Imaging Impressions Abdomen/Bladder Ultrasound 09/23/18 00:00 CONCLUSION: 1. Echogenic kidneys consistent with medical renal disease. 2. Cirrhotic liver with ascites. 3. Small right pleural effusion, likely hepatic hydrothorax. Chest X-Ray 09/24/18 04:00 CONCLUSION: 1. Stable elevation of the right hemidiaphragm. Mild atelectatic changes in the right lung base. 2. Stable position of endotracheal tube. Assessment and Plan (1) Hematemesis Status: Deleted Code(s): K92.0 - Hematemesis (2) Cirrhosis Status: Deleted Code(s): K74.60 - Unspecified cirrhosis of liver (3) Hx of hepatitis C Status: Deleted Code(s): Z86.19 - Personal history of other infectious and parasitic diseases (4) Thrombocytopenia Status: Deleted Code(s): D69.6 - Thrombocytopenia, unspecified (5) Tinea corporis Status: Acute Code(s): B35.4 - Tinea corporis - Plan 09/22/2018 EGD due to melena Hematemesis and history of cirrhosis 09/21/2018 EGD with band ligation of varices : 1. Large blood clot/blood in the fundus. Antrum normal 2. Blood in duodenum 3. Retroflexed views revealed large blood clot -Total bili 1.1 AST 40 ALT 34 alk phos 68 ammonia 43 hemoglobin 8.2 -No noted bleeding per nursing 09/23/2018 Post EGD 09/21/2018 showing large blood clots in the fundus antrum was normal there was blood in the duodenal retroflexed views revealed large blood clot recommendations for FFP platelets IV octreotide and Protonix. 09/24/2018 Liver cirrhosis with hematemesis -patient had a EGD showing large clots in the fundus of the antrum on 09/21/2018 Patient is currently intubated with Protonix IV push twice daily, octreotide discontinued this morning Hepatitis C Tinea corporis under chest Chronic kidney insufficiency Hyper ammonia 109 doubled from yesterday's level Total CK is elevated at 1370 Hemoglobin 7.6 hematocrit 22.1 platelets 48 BUN 64 creatinine 1.94 Plan -N.p.o. -Can insert NG tube tomorrow morning in order to give p.o. medications like nadolol Xifaxan and lactulose -Okay to insert NG tube in light of esophageal varices for medications -Discontinue lactulose enemas, not enough to lower the ammonia level -Monitor active bleeding -Monitor labs -DC octreotide drip -Change Protonix to 40 IV push twice daily -Hold anticoagulants -Avoid hepatotoxins -Supportive care -Further recommendations to follow This patient has been seen by myself and Dr. Stewart and this note is written on his behalf - Attending Attestation Dr. Stewart (1) Hematemesis Qualifiers: Nausea presence: unspecified Qualified Code(s): K92.0 - Hematemesis (2) Cirrhosis Qualifiers: Ascites presence: unspecified
[2018-09-24] MEDS: [UNRECOGNIZED DRUG - OTHER] RECTAL SCH ×4 (10:01→21:59)
[2018-09-24] MEDS: Albumin Human 25% Inj 50 ML IV.SIG SCH ×2 (10:01→22:35)
[2018-09-24] MEDS: LACTULOSE RECTAL SCH ×4 (10:01→21:59)
--- NOTE | 2018-09-24 11:00 | ECHRPT ---
Indication: AFIB AND FLUTTER CONCLUSIONS Normal left ventricular size. Wall thickness is normal. The left ventricular systolic function is normal with an estimated ejection fraction of 55%. Mild thickening of the aortic valve leaflets. The estimated pulmonary arterial pressure is 30 nnHg. There is mild tricuspid valve regurgitation. BP: / HR: Rhythm: MEASUREMENTS (Male / Female) Normal Values Technical Quality: 2D ECHO LV Diastolic Diameter PLAX 4.4 cm 4.2 - 5.9 / 3.9 - 5.3 cm LV Systolic Diameter PLAX 3.0 cm IVS Diastolic Thickness 0.8 cm 0.6 - 1.0 / 0.6 - 0.9 cm LVPW Diastolic Thickness 1.4 cm 0.6 - 1.0 / 0.6 - 0.9 cm LV Relative Wall Thickness 0.5 RV Internal Dim ED PLAX 3.3 cm LVOT Diameter 2.1 cm Aortic Root Diameter 3.4 cm LA Systolic Diameter LX 3.2 cm 3.0 - 4.0 / 2.7 - 3.8 cm DOPPLER AV Peak Velocity 151.0 cm/s AV Peak Gradient 9.1 mmHg LVOT Peak Velocity 91.3 cm/s LVOT Peak Gradient 3.3 mmHg AV Area Cont Eq pk 2.1 cm Mitral E Point Velocity 61.7 cm/s Mitral A Point Velocity 77.0 cm/s Mitral E to A Ratio 0.8 LV E' Lateral Velocity 8.3 cm/s Mitral E to LV E' Lateral Ratio 7.4 LV E' Septal Velocity 7.1 cm/s Mitral E to LV E' Septal Ratio 8.7 TR Peak Velocity 225.0 cm/s TR Peak Gradient 20.3 mmHg Right Atrial Pressure 10.0 mmHg Pulmonary Artery Systolic Pressu 30.3 mmHg Right Ventricular Systolic Press 30.3 mmHg PV Peak Velocity 71.2 cm/s PV Peak Gradient 2.0 mmHg FINDINGS LEFT VENTRICLE Normal left ventricular size. Wall thickness is normal. The left ventricular systolic function is normal with an estimated ejection fraction of 55%. RIGHT VENTRICLE Normal right ventricular size and systolic function. LEFT ATRIUM The left atrial size is normal. RIGHT ATRIUM The right atrial size is normal. ATRIAL SEPTUM Normal atrial septal thickness without atrial level shunting by limited color doppler interrogation. AORTA The aortic root and proximal ascending aorta are normal in size on limited imaging. MITRAL VALVE Structurally normal mitral valve. No mitral valve stenosis or regurgitation. AORTIC VALVE Mild thickening of the aortic valve leaflets. TRICUSPID VALVE The estimated pulmonary arterial pressure is 30 mmHg. There is mild tricuspid valve regurgitation. PULMONARY VALVE No pulmonary valve regurgitation or stenosis. VESSELS The inferior vena cava is normal in size. PERICARDIUM No pericardial effusion. Joshua Beckham MD, FACC (Electronically Signed) Final Date:24 September 2018 10:59
--- NOTE | 2018-09-24 20:47 | P.PNNP ---
Subjective Interval history: Patient seen in the late afternoon, remain intubated and sedated. Physical Exam Vital signs: Vital Signs 09/23/18 21:00 09/23/18 22:00 09/23/18 23:00 Temperature 98.3 F 98.3 F Pulse Rate 92 H 95 H 87 Respiratory Rate 12 18 11 L Blood Pressure 107/57 L 107/53 L 91/55 L Pulse Oximetry 95 95 96 09/24/18 00:00 09/24/18 01:00 09/24/18 01:21 Temperature 98.5 F 98.5 F Pulse Rate 85 81 Respiratory Rate 18 15 15 Blood Pressure 105/54 L 104/57 L Pulse Oximetry 96 97 97 09/24/18 02:00 09/24/18 03:00 09/24/18 04:00 Temperature 98.5 F 98.5 F 98.4 F Pulse Rate 78 82 77 Respiratory Rate 16 19 16 Blood Pressure 92/51 L 108/57 L 103/57 L Pulse Oximetry 97 97 97 09/24/18 04:44 09/24/18 05:00 09/24/18 06:00 Temperature 98.4 F 98.4 F Pulse Rate 74 127 H Respiratory Rate 19 17 13 Blood Pressure 102/56 L 142/72 H Pulse Oximetry 97 97 97 09/24/18 07:00 09/24/18 07:30 09/24/18 08:00 Temperature 97.5 F L Pulse Rate 84 81 80 Respiratory Rate 18 21 18 Blood Pressure 105/56 L 101/60 95/59 L Pulse Oximetry 96 96 96 09/24/18 08:30 09/24/18 08:48 09/24/18 08:51 Temperature Pulse Rate 75 74 Respiratory Rate 7 L 15 21 Blood Pressure 101/61 Pulse Oximetry 99 97 09/24/18 09:00 09/24/18 09:30 09/24/18 10:00 Temperature Pulse Rate 72 73 74 Respiratory Rate 19 20 21 Blood Pressure 98/57 L 108/57 L 113/59 L Pulse Oximetry 96 96 96 09/24/18 10:30 09/24/18 11:00 09/24/18 11:30 Temperature Pulse Rate 75 74 74 Respiratory Rate 19 14 14 Blood Pressure 123/65 117/58 L 118/59 L Pulse Oximetry 100 96 95 09/24/18 12:00 09/24/18 12:30 09/24/18 12:31 Temperature 97.1 F L Pulse Rate 74 75 Respiratory Rate 15 16 15 Blood Pressure 113/59 L 113/61 Pulse Oximetry 95 95 09/24/18 13:00 09/24/18 13:30 09/24/18 14:00 Temperature Pulse Rate 74 76 79 Respiratory Rate 15 18 32 H Blood Pressure 113/58 L 115/60 127/61 Pulse Oximetry 94 L 95 96 09/24/18 14:30 09/24/18 15:00 09/24/18 15:30 Temperature Pulse Rate 76 75 76 Respiratory Rate 21 16 19 Blood Pressure 115/59 L 120/59 L 117/60 Pulse Oximetry 95 95 96 09/24/18 16:00 09/24/18 18:00 Temperature 97.1 F L Pulse Rate 79 76 Respiratory Rate 18 Blood Pressure 114/59 L Pulse Oximetry 95 Intake & Output 09/24/18 09/24/18 09/25/18 06:59 18:59 06:59 Intake Total 2740.5 / 2740.5 1967 Output Total 315 / 315 430 / 430 Balance 2425.5 / 2425.5 1538 / 1538 Weight 83.5 kg Intake: IV 2740.5 / 2740.5 1967 D5W/LR Inj 1,000 ML @ 125 mls/ 1999 / 1999 1000 / 1000 hr IV.CONT .Q8H [facility] Rx#: [id number] Versed Inj 100 mg In 100 ml @ 2 102 / 102 MG/HR 2 mls/hr IV.CONT TITRATE PRN Rx#:[id number] SandoSTATIN Inj 500 MCG In NS 500.5 / 500.5 504 / 504 Inj 500 ML @ 25 MCG/HR 25.02 mls/hr IV.CONT .Q20H1M [facility] Rx#: [id number] Protonix Inj 80 MG In NS Inj 90 / 90 100 ML @ 10 mls/hr IV.CONT Q10H [facility] Rx#:[id number] Flexbumin 25% Inj 50 ML @ 60 50 / 50 50 / 50 mls/hr IV.SIG Q12H [facility] Rx#: [id number] Magnesium Sulfate Inj 2 GM In 102 / 102 NS Inj 96 ML @ 50 mls/hr IV.SIG ONCE ONE Rx#:[id number] Rocephin Inj 1,000 MG In NS Inj 100 / 100 100 ML @ 200 mls/hr IV.SIG Q24H [facility] Rx#:[id number] fentaNYL 10 mcg/mL Premix Drip 210 / 210 2,500 mcg In 250 ml @ 50 MCG/HR 5 mls/hr IV.SIG TITRATE PRN Rx #:[id number] Oral 0 / 0 0 / 0 Output: Urine Amount (Catheter) 315 / 315 430 / 430 Indwelling Temp Sensing 315 / 315 430 / 430 Catheter Other: Date of Last Bowel Movement 09/22/18 09/24/18 Narrative: GENERAL: Patient is intubated and sedated. SKIN: cool, dry. Annular rash with central clearing on abdomen which appears is pruritic due to excoriation, appears c/w tinea corporis. There is excoriating over the left lateral thigh. There are multiple patches on his back that have somewhat different morphology than the lesions on his abdomen that could be pityriasis. HEAD: Atraumatic. Normocephalic. EYES: Pupils equal and round. ENT: No nasal bleeding or discharge. Mucous membranes dry. NECK: Trachea midline. Jugular vein flat. CARDIOVASCULAR: Regular rate and rhythm, sinus on the monitor with rate in the 80s. No murmurs rubs or gallops. RESPIRATORY: Mildly tachypneic with no accessory muscle use. Clear to auscultation bilaterally. On room air. GASTROINTESTINAL: Abdomen distended without tenderness or rebound, reducible umbilical hernia. Hypoactive bowel sounds. MUSCULOSKELETAL: Extremities without clubbing, cyanosis. 1+ bipedal edema. NEUROLOGICAL: Sedated. - Urinary Catheter Management Indwelling Temp Sensing Catheter Cath placed during this visit: yes Urethral indwelling: Yes Reason for continuing: Hourly intake/output Insertion date: 09/21/18 Insertion time: 20:00 Assessment and Plan - Assessment (1) Acute blood loss anemia Code(s): D62 - Acute posthemorrhagic anemia Status: Deleted (2) Hematemesis Code(s): K92.0 - Hematemesis Status: Deleted Qualifiers: Nausea presence: unspecified Qualified Code(s): K92.0 - Hematemesis (3) Cirrhosis Code(s): K74.60 - Unspecified cirrhosis of liver Status: Deleted Qualifiers: Ascites presence: unspecified (4) Hx of hepatitis C Code(s): Z86.19 - Personal history of other infectious and parasitic diseases Status: Deleted (5) MART (acute kidney injury) Code(s): N17.9 - Acute kidney failure, unspecified Status: Deleted (6) Thrombocytopenia Code(s): D69.6 - Thrombocytopenia, unspecified Status: Deleted - Plan Patient with chronic liver disease, now admitted with respiratory failure and Elevated BUN and Creatinine. Patient has MART, Urine Sodium is low, possible pre renal, unlikely Hepato-renal. Has Paracentesis done. Urine out put is low, Creatinine remain same at 1.9. Avoid Nephrotoxins, Follow the urine out put and BMP. Weaning as tolerated.
--- NOTE | 2018-09-24 22:15 | ECG ---
Date Performed: 09/24/2018 Time Performed: 10:05:45 PTAGE: 78 years EKG: Sinus rhythm WITH OCCASIONAL SUPRAVENTRICULAR PREMATURE COMPLEXES LOW QRS VOLTAGE SEPTAL MYOCARDIAL INFARCTION , OF INDETERMINATE AGE ABNORMAL ECG NO PREVIOUS TRACING DOCTOR: Andrés Conde Interpretating Date/Time 09/24/2018 22:14:47
[2018-09-25] MEDS: Insulin NovoLOG Aspart Correctional Sugar Inj SQ SCH ×5 (00:43→17:29)
[2018-09-25] MEDS: Oral Hygiene Kit OROPHARYNG SCH ×5 (00:43→23:44)
[2018-09-25] MEDS: Artificial Tears Opth Drops 15 ML Bottle EACH EYE SCH ×4 (00:44→23:43)
[2018-09-25 05:32] LABS: Baso % (Auto) 0.3 % (0.0-2.0); Eos # (Auto) 0.1 th/mm3 (0.0-0.4); Eos % (Auto) 1.3 % (0.0-4.0); Hematocrit 22.8 % (39.0-51.0); Hemoglobin 7.7 gm/dL (13.0-17.0); Lymph # (Auto) 0.3 th/mm3 (1.0-4.8); Lymph % (Auto) 4.9 % (9.0-44.0); Mean Corpuscular HGB Conc 33.8 % (32.0-36.0); Mean Corpuscular Hemoglobin 29.3 pg (27.0-34.0); Mean Corpuscular Volume 86.7 fL (80.0-100.0); Mean Platelet Volume 9.6 fL (7.0-11.0); Mono # (Auto) 0.5 th/mm3 (0.0-0.9); Mono % (Auto) 8.7 % (0.0-8.0); Neut % (Auto) 84.8 % (16.0-70.0); Platelet Count 54 th/mm3 (150-450); Red Blood Count 2.63 mil/mm3 (4.50-5.90); Red Cell Distribution Width 16.2 % (11.6-17.2); White Blood Count 5.9 th/mm3 (4.0-11.0)
[2018-09-25 06:09] LABS: Alanine Aminotransferase 48 U/L (12-78); Albumin 2.4 g/dL (3.4-5.0); Anion Gap 9 meq/L (5-15); Aspartate Aminotransferase 128 U/L (15-37); Blood Urea Nitrogen 58 mg/dL (7-18); Calcium 7.7 mg/dL (8.5-10.1); Carbon Dioxide 24.4 meq/L (21.0-32.0); Chloride 116 meq/L (98-107); Glomerular Filtration Rate 40 mL/min (>89); Glucose,Random 138 mg/dL (74-106); Phosphorus 2.4 mg/dL (2.5-4.9); Potassium 3.7 meq/L (3.5-5.1); Sodium 149 meq/L (136-145)
[2018-09-25] MEDS: Chlorhexidine Gluconate 2% 1 Pack (2 Cloths) TOPICAL SCH (06:24)
[2018-09-25 06:25] LABS: Alkaline Phosphatase 63 U/L (45-117); Digoxin 0.7 ng/mL (0.8-2.0); Total Protein 5.2 g/dL (6.4-8.2)
[2018-09-25 06:49] LABS: Acanthocytes Occ; Ovalocytes 1+; Platelet Morphology Normal (Normal)
[2018-09-25] MEDS: Chlorhexidine 0.12% Oral Kit 15 ML UDC OROPHARYNG SCH ×2 (07:21→20:59)
[2018-09-25] MEDS: Dextrose 5%/Lactated Ringer's 1,000 ML IV.CONT SCH ×3 (07:21→23:43)
[2018-09-25] MEDS: Clotrimazole 1% Cream 15 GM Tube TOPICAL SCH ×2 (08:56→21:04)
[2018-09-25] MEDS: Senna/Docusate Sodium 8.6/50 MG Tablet PO SCH ×2 (08:57→21:05)
[2018-09-25] MEDS: Pantoprazole Inj 40 MG Vial IV.PUSH SCH ×2 (08:57→21:05)
[2018-09-25] MEDS: Albumin Human 25% Inj 50 ML IV.SIG SCH ×2 (08:59→21:09)
[2018-09-25] MEDS: LACTULOSE RECTAL SCH ×2 (09:33)
[2018-09-25] MEDS: [UNRECOGNIZED DRUG - OTHER] RECTAL SCH ×2 (09:33)
--- NOTE | 2018-09-25 11:29 | P.PNGI ---
Subjective Interval history: Patient intubated and mechanically ventilated Fentanyl and Versed for sedation No reported obvious bleeding Hemoglobin hematocrit stable Physical Exam Vital signs: Vital Signs 09/24/18 11:30 09/24/18 12:00 09/24/18 12:30 Temperature 97.1 F L Pulse Rate 74 74 75 Respiratory Rate 14 15 16 Blood Pressure 118/59 L 113/59 L 113/61 Pulse Oximetry 95 95 95 09/24/18 12:31 09/24/18 13:00 09/24/18 13:30 Temperature Pulse Rate 74 76 Respiratory Rate 15 15 18 Blood Pressure 113/58 L 115/60 Pulse Oximetry 94 L 95 09/24/18 14:00 09/24/18 14:30 09/24/18 15:00 Temperature Pulse Rate 79 76 75 Respiratory Rate 32 H 21 16 Blood Pressure 127/61 115/59 L 120/59 L Pulse Oximetry 96 95 95 09/24/18 15:30 09/24/18 16:00 09/24/18 16:30 Temperature 97.1 F L Pulse Rate 76 79 78 Respiratory Rate 19 18 13 Blood Pressure 117/60 114/59 L 117/61 Pulse Oximetry 96 95 95 09/24/18 17:00 09/24/18 17:30 09/24/18 18:00 Temperature Pulse Rate 77 79 76 Respiratory Rate 14 18 9 L Blood Pressure 117/60 118/60 110/57 L Pulse Oximetry 96 94 L 95 09/24/18 18:30 09/24/18 19:00 09/24/18 19:30 Temperature Pulse Rate 80 77 78 Respiratory Rate 12 15 16 Blood Pressure 110/56 L 108/55 L 108/55 L Pulse Oximetry 93 L 95 96 09/24/18 20:00 09/24/18 20:30 09/24/18 21:00 Temperature 97.9 F Pulse Rate 79 81 83 Respiratory Rate 17 16 14 Blood Pressure 114/55 L 113/56 L 119/56 L Pulse Oximetry 99 97 98 09/24/18 21:14 09/24/18 21:30 09/24/18 22:00 Temperature Pulse Rate 84 87 91 H Respiratory Rate 23 13 12 Blood Pressure 122/58 L 124/57 L Pulse Oximetry 97 96 95 09/24/18 22:30 09/24/18 23:00 09/24/18 23:30 Temperature Pulse Rate 88 86 87 Respiratory Rate 11 L 13 13 Blood Pressure 124/58 L 121/57 L 104/54 L Pulse Oximetry 96 96 97 09/25/18 00:00 09/25/18 00:06 09/25/18 00:30 Temperature 98.2 F Pulse Rate 85 89 Respiratory Rate 14 20 15 Blood Pressure 103/53 L 121/65 Pulse Oximetry 96 96 97 09/25/18 01:00 09/25/18 01:30 09/25/18 02:00 Temperature Pulse Rate 85 84 84 Respiratory Rate 13 13 12 Blood Pressure 119/58 L 127/60 119/55 L Pulse Oximetry 96 97 96 09/25/18 02:30 09/25/18 03:00 09/25/18 03:29 Temperature Pulse Rate 91 H 91 H 105 H Respiratory Rate 15 15 16 Blood Pressure 153/65 H 139/65 Pulse Oximetry 95 95 09/25/18 04:00 09/25/18 04:13 09/25/18 04:39 Temperature 98.4 F Pulse Rate 101 H 101 H Respiratory Rate 16 16 17 Blood Pressure 129/59 L Pulse Oximetry 97 96 97 09/25/18 05:00 09/25/18 06:00 09/25/18 06:41 Temperature Pulse Rate 92 H 93 H 95 H Respiratory Rate 12 15 14 Blood Pressure 126/70 Pulse Oximetry 98 99 98 09/25/18 07:00 09/25/18 07:30 09/25/18 07:38 Temperature Pulse Rate 93 H 93 H Respiratory Rate 16 15 19 Blood Pressure 117/63 135/63 Pulse Oximetry 97 96 97 09/25/18 07:42 09/25/18 08:00 09/25/18 09:02 Temperature 98.5 F 98.5 F Pulse Rate 93 H 92 H 93 H Respiratory Rate 16 14 14 Blood Pressure 119/57 L 127/60 Pulse Oximetry 96 98 09/25/18 10:00 09/25/18 10:53 Temperature Pulse Rate 91 H Respiratory Rate 14 Blood Pressure Pulse Oximetry 98 Intake & Output 09/24/18 09/25/18 09/25/18 18:59 06:59 18:59 Intake Total 1967 100 / 100 Output Total 430 / 430 475 / 475 Balance 1538 / 1538 1625 / 1625 100 / 100 Weight 85 kg Intake: IV 1968 / 1968 2100 / 2100 100 / 100 D5W/LR Inj 1,000 ML @ 125 mls/ 1000 / 1000 2000 / 2000 hr IV.CONT .Q8H [facility] Rx#: [id number] Versed Inj 100 mg In 100 ml @ 2 102 / 102 MG/HR 2 mls/hr IV.CONT TITRATE PRN Rx#:[id number] SandoSTATIN Inj 500 MCG In NS 504 / 504 Inj 500 ML @ 25 MCG/HR 25.02 mls/hr IV.CONT .Q20H1M [facility] Rx#: [id number] Flexbumin 25% Inj 50 ML @ 60 50 / 50 100 / 100 mls/hr IV.SIG Q12H [facility] Rx#: [id number] Magnesium Sulfate Inj 2 GM In 102 / 102 NS Inj 96 ML @ 50 mls/hr IV.SIG ONCE ONE Rx#:[id number] Rocephin Inj 1,000 MG In NS Inj 100 / 100 100 ML @ 200 mls/hr IV.SIG Q24H [facility] Rx#:[id number] fentaNYL 10 mcg/mL Premix Drip 210 / 210 2,500 mcg In 250 ml @ 50 MCG/HR 5 mls/hr IV.SIG TITRATE PRN Rx #:[id number] Oral 0 / 0 Intake (Blood Product) Amt 0 / 0 Rbc As-3 Leukoreduced Unit 0 / 0 [id number] Output: Urine Amount (Catheter) 430 / 430 475 / 475 Indwelling Temp Sensing 430 / 430 475 / 475 Catheter Other: Date of Last Bowel Movement 09/24/18 09/24/18 09/24/18 # Bowel Movements 0 - Constitutional chronically ill appearing - Routine HEENT Exam Head: Present: normocephalic - Routine Neck Exam Present: supple, trachea midline - Routine Respiratory Exam Present: patient mechanically ventilated. Absent: respiratory distress - Routine Cardiovascular Exam Present: RRR - Routine Abdominal Exam Present: soft, distended. Absent: tenderness Comments: Hypoactive bowel sounds - Routine Extremities Exam Present: edema - Routine Skin Exam Present: dry, warm Comments: Likely tinea corporis on chest wall - Urinary Catheter Management Indwelling Temp Sensing Catheter Cath placed during this visit: yes Urethral indwelling: Yes Reason for continuing: Hourly intake/output Insertion date: 09/21/18 Insertion time: 20:00 Results - Labs CBC & Chem 7: 09/25/18 15:33 09/25/18 05:13 Laboratory Results - last 24 hr 09/21/18 09/24/18 09/24/18 19:26 10:55 11:50 WBC RBC Hgb Hct MCV MCH MCHC RDW Plt Count MPV Prelim Diff (Auto) Neut % (Auto) Lymph % (Auto) Ada % (Auto) Eos % (Auto) Baso % (Auto) Neut # (Auto) Lymph # (Auto) Ada # (Auto) Eos # (Auto) Baso # (Auto) WBC Differential Diff Scan Differential Comment Platelet Estimate Platelet Morphology Ovalocytes Acanthocytes (Spur) Keratocytes APTT Fibrinogen Sodium Potassium Chloride Carbon Dioxide Anion Gap BUN Creatinine Estimated GFR POC Glucose 146 H Random Glucose Lactic Acid 2.1 H Calcium Phosphorus Magnesium Total Bilirubin AST ALT Alkaline Phosphatase Ammonia Total Protein Albumin Digoxin Blood Type Antibody Screen MTS Gel Crossmatch See Detail 09/24/18 09/24/18 09/24/18 14:42 17:38 19:11 WBC RBC Hgb 7.3 L Hct MCV MCH MCHC RDW Plt Count MPV Prelim Diff (Auto) Neut % (Auto) Lymph % (Auto) Ada % (Auto) Eos % (Auto) Baso % (Auto) Neut # (Auto) Lymph # (Auto) Ada # (Auto) Eos # (Auto) Baso # (Auto) WBC Differential Diff Scan Differential Comment Platelet Estimate Platelet Morphology Ovalocytes Acanthocytes (Spur) Keratocytes APTT Fibrinogen Sodium Potassium Chloride Carbon Dioxide Anion Gap BUN Creatinine Estimated GFR POC Glucose 125 H Random Glucose Lactic Acid Calcium Phosphorus Magnesium Total Bilirubin AST ALT Alkaline Phosphatase Ammonia Total Protein Albumin Digoxin Blood Type A Positive Antibody Screen Negative MTS Gel Crossmatch See Detail 09/24/18 09/25/18 09/25/18 21:30 00:41 05:13 WBC 5.9 RBC 2.63 L Hgb 7.7 L 7.7 L Hct 22.8 L MCV 86.7 MCH 29.3 MCHC 33.8 RDW 16.2 Plt Count 54 L MPV 9.6 Prelim Diff (Auto) Slide review pending Neut % (Auto) 84.8 H Lymph % (Auto) 4.9 L Ada % (Auto) 8.7 H Eos % (Auto) 1.3 Baso % (Auto) 0.3 Neut # (Auto) 5.0 Lymph # (Auto) 0.3 L Ada # (Auto) 0.5 Eos # (Auto) 0.1 Baso # (Auto) 0.0 WBC Differential . Diff Scan Auto diff confirmed Differential Comment . Platelet Estimate Low L Platelet Morphology Normal Ovalocytes 1+ H Acanthocytes (Spur) Occ H Keratocytes Occ H APTT Fibrinogen Sodium Potassium Chloride Carbon Dioxide Anion Gap BUN Creatinine Estimated GFR POC Glucose 144 H Random Glucose Lactic Acid Calcium Phosphorus Magnesium Total Bilirubin AST ALT Alkaline Phosphatase Ammonia Total Protein Albumin Digoxin Blood Type Antibody Screen MTS Gel Crossmatch 09/25/18 09/25/18 09/25/18 05:13 05:13 05:13 WBC RBC Hgb Hct MCV MCH MCHC RDW Plt Count MPV Prelim Diff (Auto) Neut % (Auto) Lymph % (Auto) Ada % (Auto) Eos % (Auto) Baso % (Auto) Neut # (Auto) Lymph # (Auto) Ada # (Auto) Eos # (Auto) Baso # (Auto) WBC Differential Diff Scan Differential Comment Platelet Estimate Platelet Morphology Ovalocytes Acanthocytes (Spur) Keratocytes APTT 45.0 H Fibrinogen 163 L Sodium 149 H Potassium 3.7 Chloride 116 H Carbon Dioxide 24.4 Anion Gap 9 BUN 58 H Creatinine 1.67 H Estimated GFR 40 L POC Glucose Random Glucose 138 H Lactic Acid Calcium 7.7 L Phosphorus 2.4 L Magnesium 2.0 Total Bilirubin 1.0 AST 128 H ALT 48 Alkaline Phosphatase 63 Ammonia 84 H Total Protein 5.2 L Albumin 2.4 L Digoxin 0.7 L Blood Type Antibody Screen MTS Gel Crossmatch Microbiology 09/23/18 20:30 Sputum - Endotracheal Gram Stain - Final 09/23/18 20:30 Sputum - Endotracheal Sputum Culture - Preliminary Heavy growth normal respiratory kristel at 24 hours Assessment and Plan (1) Hematemesis Status: Deleted Code(s): K92.0 - Hematemesis (2) Cirrhosis Status: Deleted Code(s): K74.60 - Unspecified cirrhosis of liver (3) Hx of hepatitis C Status: Deleted Code(s): Z86.19 - Personal history of other infectious and parasitic diseases (4) Thrombocytopenia Status: Deleted Code(s): D69.6 - Thrombocytopenia, unspecified (5) Tinea corporis Status: Acute Code(s): B35.4 - Tinea corporis - Plan 09/22/2018 EGD due to melena Hematemesis and history of cirrhosis 09/21/2018 EGD with band ligation of varices : 1. Large blood clot/blood in the fundus. Antrum normal 2. Blood in duodenum 3. Retroflexed views revealed large blood clot -Total bili 1.1 AST 40 ALT 34 alk phos 68 ammonia 43 hemoglobin 8.2 -No noted bleeding per nursing 09/23/2018 Post EGD 09/21/2018 showing large blood clots in the fundus antrum was normal there was blood in the duodenal retroflexed views revealed large blood clot recommendations for FFP platelets IV octreotide and Protonix. 09/24/2018 Liver cirrhosis with hematemesis -patient had a EGD showing large clots in the fundus of the antrum on 09/21/2018 Patient is currently intubated with Protonix IV push twice daily, octreotide discontinued this morning Hepatitis C Tinea corporis under chest Chronic kidney insufficiency Hyper ammonia 109 doubled from yesterday's level Total CK is elevated at 1370 Hemoglobin 7.6 hematocrit 22.1 platelets 48 BUN 64 creatinine 1.94 09/25/2018 Liver cirrhosis-post EGD on 09/21/2018 revealing large clots in the fundus of the antrum. Patient currently receiving IV Protonix twice daily Hemoglobin 7.7 hematocrit 22.2 stable, to begin Xifaxan, lactulose and nadolol Hepatitis C CKI Hyper ammonia-84--NG tube placement for administration of lactulose Xifaxan and nadolol Plan -N.p.o. -NG tube placement for medication administration as per Dr. Stewart -Monitor for active bleeding -Monitor hemoglobin and hematocrit -Transfuse to keep hemoglobin between 7 and 8 -Protonix 40 mg IV twice daily -Avoid hepatotoxins -Avoid anticoagulants -Supportive care -Further recommendations to follow This patient has been seen by myself and Dr. Stewart and this note is written on his behalf - Attending Attestation Dr. Stewart (1) Hematemesis Qualifiers: Nausea presence: unspecified Qualified Code(s): K92.0 - Hematemesis (2) Cirrhosis Qualifiers: Ascites presence: unspecified
--- NOTE | 2018-09-25 12:36 | P.PNCC ---
Subjective Subjective Remarks/Hospital Course: 09/22: Overnight the patient underwent EGD 5 columns of esophageal varices was located but no bleeding was noted per large blood clot was noted in the fundus and the duodenum 0 hemoglobin and hematocrits continue last hemoglobin noted to be 7.9. The patient continues on Protonix and octreotide infusions currently. Patient was noted to have a low normal blood pressure on propofol infusion this is been discontinued. Versed and fentanyl infusions initiated to maintain ventilator synchrony. Patient noted to have acute kidney injury creatinine downtrending slightly peer nephrology has been consulted appreciate recommendations per patient with known ascites last known paracentesis approximately 4 months ago peer INR within normal limits invasive radiology has been consulted for possible paracentesis. 09/23: The patient underwent CT-guided paracentesis yesterday 5.2 L removed the patient's FiO2 requirements continue to decrease PEEP has been decreased down to 5 FiO2 of 40%. Urine output 770 cc in 24hr. Lactulose enemas have been added to medication regimen twice daily secondary to hyperammonemia. 09/24: Afebrile. Continues with low urine output. Ventilator settings stable. Went to A. fib with RVR. Laboratories pending. EKG pending. On fentanyl drip sedation 100 mcg an hour. SUBJECTIVE: 09/25: NG tube placed today. Remains on the ventilator. Withdraws to pain. Positive cough and gag. Ammonia level down to 84. Objective Vital Signs / I&O: Vital Signs 09/24/18 13:00 09/24/18 13:30 09/24/18 14:00 Temperature Pulse Rate 74 76 79 Respiratory Rate 15 18 32 H Blood Pressure 113/58 L 115/60 127/61 Pulse Oximetry 94 L 95 96 09/24/18 14:30 09/24/18 15:00 09/24/18 15:30 Temperature Pulse Rate 76 75 76 Respiratory Rate 21 16 19 Blood Pressure 115/59 L 120/59 L 117/60 Pulse Oximetry 95 95 96 09/24/18 16:00 09/24/18 16:30 09/24/18 17:00 Temperature 97.1 F L Pulse Rate 79 78 77 Respiratory Rate 18 13 14 Blood Pressure 114/59 L 117/61 117/60 Pulse Oximetry 95 95 96 09/24/18 17:30 09/24/18 18:00 09/24/18 18:30 Temperature Pulse Rate 79 76 80 Respiratory Rate 18 9 L 12 Blood Pressure 118/60 110/57 L 110/56 L Pulse Oximetry 94 L 95 93 L 09/24/18 19:00 09/24/18 19:30 09/24/18 20:00 Temperature 97.9 F Pulse Rate 77 78 79 Respiratory Rate 15 16 17 Blood Pressure 108/55 L 108/55 L 114/55 L Pulse Oximetry 95 96 99 09/24/18 20:30 09/24/18 21:00 09/24/18 21:14 Temperature Pulse Rate 81 83 84 Respiratory Rate 16 14 23 Blood Pressure 113/56 L 119/56 L Pulse Oximetry 97 98 97 09/24/18 21:30 09/24/18 22:00 09/24/18 22:30 Temperature Pulse Rate 87 91 H 88 Respiratory Rate 13 12 11 L Blood Pressure 122/58 L 124/57 L 124/58 L Pulse Oximetry 96 95 96 09/24/18 23:00 09/24/18 23:30 09/25/18 00:00 Temperature 98.2 F Pulse Rate 86 87 85 Respiratory Rate 13 13 14 Blood Pressure 121/57 L 104/54 L 103/53 L Pulse Oximetry 96 97 96 09/25/18 00:06 09/25/18 00:30 09/25/18 01:00 Temperature Pulse Rate 89 85 Respiratory Rate 20 15 13 Blood Pressure 121/65 119/58 L Pulse Oximetry 96 97 96 09/25/18 01:30 09/25/18 02:00 09/25/18 02:30 Temperature Pulse Rate 84 84 91 H Respiratory Rate 13 12 15 Blood Pressure 127/60 119/55 L 153/65 H Pulse Oximetry 97 96 95 09/25/18 03:00 09/25/18 03:29 09/25/18 04:00 Temperature 98.4 F Pulse Rate 91 H 105 H 101 H Respiratory Rate 15 16 16 Blood Pressure 139/65 Pulse Oximetry 95 97 09/25/18 04:13 09/25/18 04:39 09/25/18 05:00 Temperature Pulse Rate 101 H 92 H Respiratory Rate 16 17 12 Blood Pressure 129/59 L Pulse Oximetry 96 97 98 09/25/18 06:00 09/25/18 06:41 09/25/18 07:00 Temperature Pulse Rate 93 H 95 H 93 H Respiratory Rate 15 14 16 Blood Pressure 126/70 117/63 Pulse Oximetry 99 98 97 09/25/18 07:30 09/25/18 07:38 09/25/18 07:42 Temperature Pulse Rate 93 H 93 H Respiratory Rate 15 19 16 Blood Pressure 135/63 Pulse Oximetry 96 97 09/25/18 08:00 09/25/18 09:02 09/25/18 09:19 Temperature 98.5 F 98.5 F 98.6 F Pulse Rate 92 H 93 H 89 Respiratory Rate 14 14 14 Blood Pressure 119/57 L 127/60 110/59 L Pulse Oximetry 96 98 100 09/25/18 10:00 09/25/18 10:53 Temperature Pulse Rate 91 H Respiratory Rate 14 Blood Pressure Pulse Oximetry 98 Intake & Output 09/24/18 09/25/18 09/25/18 18:59 06:59 18:59 Intake Total 1967 100 / 100 Output Total 430 / 430 475 / 475 Balance 1538 / 1538 1625 / 1625 100 / 100 Weight 85 kg Intake: IV 1967 100 / 100 D5W/LR Inj 1,000 ML @ 125 mls/ 1000 / 1000 2000 / 2000 hr IV.CONT .Q8H [facility] Rx#: [id number] Versed Inj 100 mg In 100 ml @ 2 102 / 102 MG/HR 2 mls/hr IV.CONT TITRATE PRN Rx#:[id number] SandoSTATIN Inj 500 MCG In NS 504 / 504 Inj 500 ML @ 25 MCG/HR 25.02 mls/hr IV.CONT .Q20H1M [facility] Rx#: [id number] Flexbumin 25% Inj 50 ML @ 60 50 / 50 100 / 100 mls/hr IV.SIG Q12H [facility] Rx#: [id number] Magnesium Sulfate Inj 2 GM In 102 / 102 NS Inj 96 ML @ 50 mls/hr IV.SIG ONCE ONE Rx#:[id number] Rocephin Inj 1,000 MG In NS Inj 100 / 100 100 ML @ 200 mls/hr IV.SIG Q24H [facility] Rx#:[id number] fentaNYL 10 mcg/mL Premix Drip 210 / 210 2,500 mcg In 250 ml @ 50 MCG/HR 5 mls/hr IV.SIG TITRATE PRN Rx #:[id number] Oral 0 / 0 Intake (Blood Product) Amt 0 / 0 Rbc As-3 Leukoreduced Unit 0 / 0 [id number] Output: Urine Amount (Catheter) 430 / 430 475 / 475 Indwelling Temp Sensing 430 / 430 475 / 475 Catheter Other: Date of Last Bowel Movement 09/24/18 09/24/18 09/24/18 # Bowel Movements 0 Result Diagrams: 09/25/18 05:13 09/25/18 05:13 Other Results: Microbiology 09/23/18 20:30 Sputum - Endotracheal Gram Stain - Final 09/23/18 20:30 Sputum - Endotracheal Sputum Culture - Final Heavy growth normal respiratory kristel Imaging: Chest X-Ray 09/21/18 21:44 CONCLUSION: Endotracheal tube in good position. Bibasal airspace disease. No prior study for comparison. Paracentesis CT 09/22/18 14:08 CONCLUSION: 1. Uncomplicated CT Guided paracentesis. Abdomen/Bladder Ultrasound 09/23/18 00:00 CONCLUSION: 1. Echogenic kidneys consistent with medical renal disease. 2. Cirrhotic liver with ascites. 3. Small right pleural effusion, likely hepatic hydrothorax. Chest X-Ray 09/24/18 04:00 CONCLUSION: 1. Stable elevation of the right hemidiaphragm. Mild atelectatic changes in the right lung base. 2. Stable position of endotracheal tube. Objective Remarks: GENERAL: This is a well-developed well-nourished chronically ill-appearing, currently intubated and sedated SKIN: Warm and dry. Ecchymosis noted bilateral forearm HEAD: Atraumatic. Normocephalic. EYES: Pupils equal and round. No scleral icterus. No injection or drainage. ENT: No nasal bleeding or discharge. Mucous membranes pink and moist. NECK: Trachea midline. No JVD. CARDIOVASCULAR: IRR. S1, S2. No S4. RESPIRATORY: No accessory muscle use. Clear to auscultation. Breath sounds equal bilaterally. GASTROINTESTINAL: Abdomen soft, umbilical hernia noted reducible, mildly distended. No guarding. Resolving abdominal rash with multiple pinpoint lesions back and legs MUSCULOSKELETAL: Extremities without clubbing, cyanosis, or edema. No obvious deformities. Noted 1+ bilateral pedal edema NEUROLOGICAL: Cranial nerves II through XII grossly intact. Positive cough and gag. Moves all 4 extremities spontaneously. Procedures: 09/21- EGD 09/22-CT guided paracentesis 2.5 L removed Assessment and Plan - Assessment and Plan Plan: NEURO/PSYCH: History of stroke with residual aphasia Midazolam and fentanyl infusions currently at 100 mg an hour to maintain ventilator synchrony Goal of RASS -2. Daily sedation vacation RESP: Acute respiratory failure PRVCD 17/12 100/1.12/08/39 Ventilator bundle Albuterol/ipratropium aerosols every 6 hours with albuterol aerosols every 2 hours as needed dyspnea To remain intubated for airway protection while observing for ongoing UGI bleeding. CXR clear with satisfactory ETT position. Spontaneous breathing trials when clinically indicated CV: Essential hypertension Atrial fibrillation currently normal sinus rhythm On amlodipine unknown dosage at home. Will hold. D5 LR 125 ml/hr Currently not requiring vasopressors. Holding chlorthalidone 5 mg daily. GI: Upper GI bleed secondary to esophageal varices now s/p banding Hx Hep C Cirrhosis Hepatocellular carcinoma s/p TACE procedure Recurrent ascites Hyperammonemia Hypoalbuminemia N.p.o. status. Okay for NG/OG tube for gastroenterology today Currently on pantoprazole 40 mg IV twice daily Octreotide drip currently at 25 mcg an hour discontinued 09/25. Serial hemoglobin and hematocrit last document stable around 8 09/21 GI consulted emergently, Dr. Beverly. Esophageal varices banded. Reportedly no active bleeding but unable to rule out gastric varices due to presence of clots in the stomach. 09/22paracentesis 5.2 L removed Lactulose enemas twice daily. Recheck ammonia level in a.m. 09/26. Patient is on scheduled lactulose 30 cc 3 times daily at home. Ammonia level is currently 84 FEN/RENAL: ?MART (unknown baseline creatinine) Oliguria Hypernatremia Hypophosphatemia Burnett in place. Monitor I/O. Monitor electrolytes and replace as indicated per ICU electrolyte replacement protocol. IVF as per above. Albumin 12.5 twice daily Nephrology following Patient is on scheduled potassium chloride 20 mEq twice daily at home ID: Tinea corporis Ceftriaxone for SBP prophylaxis. Clotrimazole 1% cream bid. Patient was on a prednisone taper and triamcinolone acetate 0.1% and Vanicream topical daily to affected areas twice daily at home. Sputum culture pending Procedure with doxycycline hyclate 10 mg twice daily with food HEME: Acute blood loss anemia/normocytic Thrombocytopenia Coagulopathy with elevated INR Transfuse 3 units PRBCs, 1 unit FFP and 1 unit of platelets since admission Received [id number] mg IV Follow-up coags and fibrinogen and serial hemoglobin. ENDO: Sliding scale insulin aspart insulin/low regimen to maintain euglycemia every 6 hours TSH 0.163. Follow-up on total T3/free T4 And vitamin D3. PROPH: SCDs for DVT prophylaxis. Pharmacologic DVT prophylaxis is contraindicated. Pantoprazole 40 mg IV twice daily ACCESS: [address] Level 3 follow-up
--- NOTE | 2018-09-25 12:43 | P.PNNP ---
Subjective Interval history: On ventilator. Creatinine improving at 1.6 non oliguric. <RocaelyvonPadminiSana - Last Filed: 09/25/18 12:38> Physical Exam Vital signs: Vital Signs 09/24/18 13:00 09/24/18 13:30 09/24/18 14:00 Temperature Pulse Rate 74 76 79 Respiratory Rate 15 18 32 H Blood Pressure 113/58 L 115/60 127/61 Pulse Oximetry 94 L 95 96 09/24/18 14:30 09/24/18 15:00 09/24/18 15:30 Temperature Pulse Rate 76 75 76 Respiratory Rate 21 16 19 Blood Pressure 115/59 L 120/59 L 117/60 Pulse Oximetry 95 95 96 09/24/18 16:00 09/24/18 16:30 09/24/18 17:00 Temperature 97.1 F L Pulse Rate 79 78 77 Respiratory Rate 18 13 14 Blood Pressure 114/59 L 117/61 117/60 Pulse Oximetry 95 95 96 09/24/18 17:30 09/24/18 18:00 09/24/18 18:30 Temperature Pulse Rate 79 76 80 Respiratory Rate 18 9 L 12 Blood Pressure 118/60 110/57 L 110/56 L Pulse Oximetry 94 L 95 93 L 09/24/18 19:00 09/24/18 19:30 09/24/18 20:00 Temperature 97.9 F Pulse Rate 77 78 79 Respiratory Rate 15 16 17 Blood Pressure 108/55 L 108/55 L 114/55 L Pulse Oximetry 95 96 99 09/24/18 20:30 09/24/18 21:00 09/24/18 21:14 Temperature Pulse Rate 81 83 84 Respiratory Rate 16 14 23 Blood Pressure 113/56 L 119/56 L Pulse Oximetry 97 98 97 09/24/18 21:30 09/24/18 22:00 09/24/18 22:30 Temperature Pulse Rate 87 91 H 88 Respiratory Rate 13 12 11 L Blood Pressure 122/58 L 124/57 L 124/58 L Pulse Oximetry 96 95 96 09/24/18 23:00 09/24/18 23:30 09/25/18 00:00 Temperature 98.2 F Pulse Rate 86 87 85 Respiratory Rate 13 13 14 Blood Pressure 121/57 L 104/54 L 103/53 L Pulse Oximetry 96 97 96 09/25/18 00:06 09/25/18 00:30 09/25/18 01:00 Temperature Pulse Rate 89 85 Respiratory Rate 20 15 13 Blood Pressure 121/65 119/58 L Pulse Oximetry 96 97 96 09/25/18 01:30 09/25/18 02:00 09/25/18 02:30 Temperature Pulse Rate 84 84 91 H Respiratory Rate 13 12 15 Blood Pressure 127/60 119/55 L 153/65 H Pulse Oximetry 97 96 95 09/25/18 03:00 09/25/18 03:29 09/25/18 04:00 Temperature 98.4 F Pulse Rate 91 H 105 H 101 H Respiratory Rate 15 16 16 Blood Pressure 139/65 Pulse Oximetry 95 97 09/25/18 04:13 09/25/18 04:39 09/25/18 05:00 Temperature Pulse Rate 101 H 92 H Respiratory Rate 16 17 12 Blood Pressure 129/59 L Pulse Oximetry 96 97 98 09/25/18 06:00 09/25/18 06:41 09/25/18 07:00 Temperature Pulse Rate 93 H 95 H 93 H Respiratory Rate 15 14 16 Blood Pressure 126/70 117/63 Pulse Oximetry 99 98 97 09/25/18 07:30 09/25/18 07:38 09/25/18 07:42 Temperature Pulse Rate 93 H 93 H Respiratory Rate 15 19 16 Blood Pressure 135/63 Pulse Oximetry 96 97 09/25/18 08:00 09/25/18 09:02 09/25/18 09:19 Temperature 98.5 F 98.5 F 98.6 F Pulse Rate 92 H 93 H 89 Respiratory Rate 14 14 14 Blood Pressure 119/57 L 127/60 110/59 L Pulse Oximetry 96 98 100 09/25/18 10:00 09/25/18 10:53 Temperature Pulse Rate 91 H Respiratory Rate 14 Blood Pressure Pulse Oximetry 98 Intake & Output 09/24/18 09/25/18 09/25/18 18:59 06:59 18:59 Intake Total 1967 100 / 100 Output Total 430 / 430 475 / 475 Balance 1538 / 1538 1625 / 1625 100 / 100 Weight 85 kg Intake: IV 1967 100 / 100 D5W/LR Inj 1,000 ML @ 125 mls/ 1000 / 1000 1999 / 1999 hr IV.CONT .Q8H [facility] Rx#: [id number] Versed Inj 100 mg In 100 ml @ 2 102 / 102 MG/HR 2 mls/hr IV.CONT TITRATE PRN Rx#:[id number] SandoSTATIN Inj 500 MCG In NS 504 / 504 Inj 500 ML @ 25 MCG/HR 25.02 mls/hr IV.CONT .Q20H1M [facility] Rx#: [id number] Flexbumin 25% Inj 50 ML @ 60 50 / 50 100 / 100 mls/hr IV.SIG Q12H [facility] Rx#: [id number] Magnesium Sulfate Inj 2 GM In 102 / 102 NS Inj 96 ML @ 50 mls/hr IV.SIG ONCE ONE Rx#:[id number] Rocephin Inj 1,000 MG In NS Inj 100 / 100 100 ML @ 200 mls/hr IV.SIG Q24H [facility] Rx#:[id number] fentaNYL 10 mcg/mL Premix Drip 210 / 210 2,500 mcg In 250 ml @ 50 MCG/HR 5 mls/hr IV.SIG TITRATE PRN Rx #:[id number] Oral 0 / 0 Intake (Blood Product) Amt 0 / 0 Rbc As-3 Leukoreduced Unit 0 / 0 [id number] Output: Urine Amount (Catheter) 430 / 430 475 / 475 Indwelling Temp Sensing 430 / 430 475 / 475 Catheter Other: Date of Last Bowel Movement 09/24/18 09/24/18 09/24/18 # Bowel Movements 0 Narrative: GENERAL: Orally intubated. SKIN: Warm and dry. NECK: Supple, trachea midline. No JVD CARDIOVASCULAR: Regular rate and rhythm without murmurs, gallops, or rubs. RESPIRATORY: Breath sounds equal bilaterally. No accessory muscle use. Orally intubated. GASTROINTESTINAL: Abdomen soft, non-tender, nondistended. OG tube GI: Indwelling Burnett catheter, clear yellow urine. MUSCULOSKELETAL: No cyanosis, generalized edema upper and lower extremity BACK: Nontender without obvious deformity. No CVA tenderness. - Urinary Catheter Management Indwelling Temp Sensing Catheter Cath placed during this visit: yes Urethral indwelling: Yes Reason for continuing: Hourly intake/output Insertion date: 09/21/18 Insertion time: 20:00 <Sana Flores - Last Filed: 09/25/18 12:38> Vital signs: Vital Signs 09/24/18 21:00 09/24/18 21:14 09/24/18 21:30 Temperature Pulse Rate 83 84 87 Respiratory Rate 14 23 13 Blood Pressure 119/56 L 122/58 L Pulse Oximetry 98 97 96 09/24/18 22:00 09/24/18 22:30 09/24/18 23:00 Temperature Pulse Rate 91 H 88 86 Respiratory Rate 12 11 L 13 Blood Pressure 124/57 L 124/58 L 121/57 L Pulse Oximetry 95 96 96 09/24/18 23:30 09/25/18 00:00 09/25/18 00:06 Temperature 98.2 F Pulse Rate 87 85 Respiratory Rate 13 14 20 Blood Pressure 104/54 L 103/53 L Pulse Oximetry 97 96 96 09/25/18 00:30 09/25/18 01:00 09/25/18 01:30 Temperature Pulse Rate 89 85 84 Respiratory Rate 15 13 13 Blood Pressure 121/65 119/58 L 127/60 Pulse Oximetry 97 96 97 09/25/18 02:00 09/25/18 02:30 09/25/18 03:00 Temperature Pulse Rate 84 91 H 91 H Respiratory Rate 12 15 15 Blood Pressure 119/55 L 153/65 H 139/65 Pulse Oximetry 96 95 95 09/25/18 03:29 09/25/18 04:00 09/25/18 04:13 Temperature 98.4 F Pulse Rate 105 H 101 H 101 H Respiratory Rate 16 16 16 Blood Pressure 129/59 L Pulse Oximetry 97 96 09/25/18 04:39 09/25/18 05:00 09/25/18 06:00 Temperature Pulse Rate 92 H 93 H Respiratory Rate 17 12 15 Blood Pressure Pulse Oximetry 97 98 99 09/25/18 06:41 09/25/18 07:00 09/25/18 07:30 Temperature Pulse Rate 95 H 93 H 93 H Respiratory Rate 14 16 15 Blood Pressure 126/70 117/63 135/63 Pulse Oximetry 98 97 96 09/25/18 07:38 09/25/18 07:42 09/25/18 08:00 Temperature 98.5 F Pulse Rate 93 H 92 H Respiratory Rate 19 16 14 Blood Pressure 119/57 L Pulse Oximetry 97 96 09/25/18 09:02 09/25/18 09:19 09/25/18 10:00 Temperature 98.5 F 98.6 F Pulse Rate 93 H 89 91 H Respiratory Rate 14 14 Blood Pressure 127/60 110/59 L Pulse Oximetry 98 100 09/25/18 10:53 09/25/18 11:00 09/25/18 11:30 Temperature Pulse Rate 90 91 H Respiratory Rate 14 12 14 Blood Pressure 110/59 L 128/60 Pulse Oximetry 98 100 100 09/25/18 12:00 09/25/18 12:30 09/25/18 14:00 Temperature 98.6 F Pulse Rate 92 H 101 H 94 H Respiratory Rate 14 16 Blood Pressure 146/71 H 150/77 H Pulse Oximetry 100 94 L 09/25/18 14:51 09/25/18 15:30 09/25/18 15:49 Temperature Pulse Rate 92 H 100 H Respiratory Rate 14 16 14 Blood Pressure 149/68 H Pulse Oximetry 97 99 09/25/18 16:00 09/25/18 17:45 Temperature 98.8 F Pulse Rate 94 H 92 H Respiratory Rate 14 Blood Pressure 141/64 H Pulse Oximetry 99 Intake & Output 09/25/18 09/25/18 09/26/18 06:59 18:59 06:59 Intake Total 2099 / 2099 1175 / 1175 Output Total 475 / 475 475 / 475 Balance 1625 / 1625 700 / 700 Weight 85 kg Intake: IV 2099 / 2099 1100 / 1100 D5W/LR Inj 1,000 ML @ 125 mls/ 2000 / 2000 1000 / 1000 hr IV.CONT .Q8H [facility] Rx#: [id number] Flexbumin 25% Inj 50 ML @ 60 100 / 100 mls/hr IV.SIG Q12H [facility] Rx#: [id number] Rocephin Inj 1,000 MG In NS Inj 100 / 100 100 ML @ 200 mls/hr IV.SIG Q24H [facility] Rx#:[id number] Oral 75 / 75 Intake (Blood Product) Amt 0 / 0 Rbc As-3 Leukoreduced Unit 0 / 0 [id number] Output: Urine Amount (Catheter) 475 / 475 475 / 475 Indwelling Temp Sensing 475 / 475 475 / 475 Catheter Other: Date of Last Bowel Movement 09/24/18 09/24/18 # Bowel Movements 0 - Urinary Catheter Management Indwelling Temp Sensing Catheter Cath placed during this visit: no <Maxine Balbuena Q - Last Filed: 09/25/18 20:56> Assessment and Plan - Assessment (1) Acute blood loss anemia Code(s): D62 - Acute posthemorrhagic anemia Status: Deleted (2) Hematemesis Code(s): K92.0 - Hematemesis Status: Deleted (3) Cirrhosis Code(s): K74.60 - Unspecified cirrhosis of liver Status: Deleted (4) Hx of hepatitis C Code(s): Z86.19 - Personal history of other infectious and parasitic diseases Status: Deleted (5) MART (acute kidney injury) Code(s): N17.9 - Acute kidney failure, unspecified Status: Deleted (6) Thrombocytopenia Code(s): D69.6 - Thrombocytopenia, unspecified Status: Deleted - Plan Patient with chronic liver disease, now admitted with respiratory failure and Elevated BUN and Creatinine. Patient has MART, Urine Sodium is low, possible pre renal, unlikely Hepato-renal. Has Paracentesis done. Creatinine slightly improved at 1.6 from 1.9, UOP at 685 ml/24 hour Avoid Nephrotoxins, Follow the urine out put and BMP. Weaning as tolerated. <Sana Flores - Last Filed: 09/25/18 12:38> - Plan Patient seen and examined, agree with above. Creatinine is better, now 1.6. Continue Hydration. Weaning as per CCM. <Lilly Balbuena - Last Filed: 09/25/18 20:56>
[2018-09-25] MEDS ORDERED: rifAXIMin 550 MG Tablet PO SCH ×2 (15:00→21:00)
[2018-09-25 16:03] LABS: Hematocrit 27.8 % (39.0-51.0); Hemoglobin 9.1 gm/dL (13.0-17.0)
[2018-09-26] MEDS: Insulin NovoLOG Aspart Correctional Sugar Inj SQ SCH ×4 (00:02→17:28)
[2018-09-26] MEDS: rifAXIMin 550 MG Tablet PO SCH ×2 (03:59→16:18)
[2018-09-26] MEDS: Chlorhexidine Gluconate 2% 1 Pack (2 Cloths) TOPICAL SCH (04:41)
[2018-09-26] MEDS: Oral Hygiene Kit OROPHARYNG SCH ×3 (04:41→16:17)
--- NOTE | 2018-09-26 05:27 | XR ---
EXAM DATE: 09/26/2018 5:19 AM EST AGE/SEX: 78 years / Male INDICATIONS: Respiratory failure. CLINICAL DATA: This is the patient's subsequent encounter. Patient reports that signs and symptoms h ave been present for 4 - 6 days and indicates a pain score of Nonresponsive. MEDICAL/SURGICAL HISTORY: . Anemia. Cirrhosis. Hepatitis C. Renal failure. Stroke. Carcinoma, l iver. Appendectomy. COMPARISON: [facility] [place], CHEST 1V SINGLE AP, 09/24/2018. . FINDINGS: A single AP view of the chest demonstrates no interval change. Endotracheal tube tip 4 cm from the ca mala. Nasogastric tube tip courses off the inferior margin of the film. Elevation of the right hemidi aphragm. No infiltrates or effusions. Heart is normal in size. CONCLUSION: Clear lungs. Electronically signed by: Dandre Soto MD Board Certified Radiologist 09/26/2018 5:25 AM EST
[2018-09-26 06:29] LABS: Baso % (Auto) 0.3 % (0.0-2.0); Eos # (Auto) 0.2 th/mm3 (0.0-0.4); Eos % (Auto) 2.7 % (0.0-4.0); Hematocrit 27.3 % (39.0-51.0); Hemoglobin 9.4 gm/dL (13.0-17.0); Lymph # (Auto) 0.4 th/mm3 (1.0-4.8); Lymph % (Auto) 5.9 % (9.0-44.0); Mean Corpuscular HGB Conc 34.3 % (32.0-36.0); Mean Corpuscular Hemoglobin 29.5 pg (27.0-34.0); Mean Platelet Volume 8.5 fL (7.0-11.0); Mono # (Auto) 0.8 th/mm3 (0.0-0.9); Mono % (Auto) 10.8 % (0.0-8.0); Neut # (Auto) 5.7 th/mm3 (1.8-7.7); Neut % (Auto) 80.3 % (16.0-70.0); Platelet Count 56 th/mm3 (150-450); Red Blood Count 3.18 mil/mm3 (4.50-5.90); Red Cell Distribution Width 16.8 % (11.6-17.2); White Blood Count 7.1 th/mm3 (4.0-11.0)
[2018-09-26 06:34] LABS: INR 1.5 Ratio; Prothrombin Time 14.8 sec (9.8-11.6)
[2018-09-26] MEDS: Dextrose 5%/Lactated Ringer's 1,000 ML IV.CONT SCH ×4 (06:57→21:47)
[2018-09-26 07:07] LABS: Alanine Aminotransferase 49 U/L (12-78); Albumin 2.6 g/dL (3.4-5.0); Alkaline Phosphatase 73 U/L (45-117); Anion Gap 8 meq/L (5-15); Aspartate Aminotransferase 103 U/L (15-37); Blood Urea Nitrogen 46 mg/dL (7-18); Carbon Dioxide 25.3 meq/L (21.0-32.0); Chloride 116 meq/L (98-107); Glomerular Filtration Rate 51 mL/min (>89); Glucose,Random 125 mg/dL (74-106); Phosphorus 1.8 mg/dL (2.5-4.9); Potassium 3.9 meq/L (3.5-5.1); Sodium 149 meq/L (136-145); Total Protein 5.6 g/dL (6.4-8.2)
[2018-09-26] MEDS: Artificial Tears Opth Drops 15 ML Bottle EACH EYE SCH ×2 (07:26→16:18)
[2018-09-26] MEDS: Chlorhexidine 0.12% Oral Kit 15 ML UDC OROPHARYNG SCH ×2 (07:26→20:03)
[2018-09-26 08:38] LABS: Acanthocytes Occ; Ovalocytes 1+
[2018-09-26 08:39] LABS: Platelet Morphology Normal (Normal)
[2018-09-26] MEDS: Pantoprazole Inj 40 MG Vial IV.PUSH SCH ×2 (08:40→20:04)
[2018-09-26] MEDS: Senna/Docusate Sodium 8.6/50 MG Tablet PO SCH ×2 (08:40→20:04)
[2018-09-26] MEDS: Clotrimazole 1% Cream 15 GM Tube TOPICAL SCH ×2 (08:41→20:04)
[2018-09-26] MEDS: Albumin Human 25% Inj 50 ML IV.SIG SCH ×2 (09:19→21:47)
[2018-09-26] MEDS ORDERED: Potassium Phosphate Inj 30 MMOL in Sodium Chlor 0.9% Inj 250 ML IV.SIG PRN (09:32)
[2018-09-26] MEDS ORDERED: Potassium Phosphate 500 MG Soluble Tablet PO PRN ×2 (09:32)
[2018-09-26] MEDS ORDERED: Magnesium Sulfate Inj 2 GM in Sodium Chlor 0.9% Inj 96 ML IV.SIG PRN (09:32)
[2018-09-26] MEDS ORDERED: Potassium Chlor 20 mEq Premix 20 MEQ/100 ML PIGGYBACK IV.SIG PRN ×2 (09:32)
[2018-09-26] MEDS ORDERED: Sodium Phosphate Inj 30 MMOL in Sodium Chlor 0.9% Inj 250 ML IV.SIG PRN (09:32)
[2018-09-26] MEDS ORDERED: Magnesium Oxide 400 MG Tablet PO PRN (09:32)
[2018-09-26] MEDS ORDERED: Potassium Chlor 40 mEq Premix 40 MEQ/100 ML PIGGYBACK IV.SIG PRN ×2 (09:32)
[2018-09-26] MEDS ORDERED: Magnesium Sulfate Inj 4 GM in Sodium Chlor 0.9% Inj 92 ML IV.SIG PRN (09:32)
[2018-09-26] MEDS ORDERED: Potassium Chloride Liq 20 MEQ/15 ML UDC PO PRN ×2 (09:32)
--- NOTE | 2018-09-26 11:21 | P.PNGI ---
Subjective Interval history: Continued to be intubated No reports of active bleeding Physical Exam Vital signs: Vital Signs 09/25/18 11:30 09/25/18 12:00 09/25/18 12:30 Temperature 98.6 F Pulse Rate 91 H 92 H 101 H Respiratory Rate 14 14 16 Blood Pressure 128/60 146/71 H 150/77 H Pulse Oximetry 100 100 94 L 09/25/18 14:00 09/25/18 14:51 09/25/18 15:30 Temperature Pulse Rate 94 H 92 H 100 H Respiratory Rate 14 16 Blood Pressure 149/68 H Pulse Oximetry 97 09/25/18 15:49 09/25/18 16:00 09/25/18 16:30 Temperature 98.8 F Pulse Rate 94 H 91 H Respiratory Rate 14 14 15 Blood Pressure 141/64 H 123/60 Pulse Oximetry 99 99 99 09/25/18 17:00 09/25/18 17:30 09/25/18 17:45 Temperature Pulse Rate 90 92 H 92 H Respiratory Rate 13 14 Blood Pressure 122/60 138/65 Pulse Oximetry 99 98 09/25/18 18:00 09/25/18 18:30 09/25/18 19:00 Temperature Pulse Rate 91 H 90 89 Respiratory Rate 13 14 14 Blood Pressure 126/63 129/62 121/59 L Pulse Oximetry 98 98 98 09/25/18 19:30 09/25/18 20:00 09/25/18 20:30 Temperature 98.6 F Pulse Rate 86 93 H 90 Respiratory Rate 14 14 14 Blood Pressure 125/62 140/70 131/64 Pulse Oximetry 99 99 98 09/25/18 21:00 09/25/18 21:30 09/25/18 21:44 Temperature Pulse Rate 99 H 93 H 96 H Respiratory Rate 21 17 16 Blood Pressure 165/75 H 137/65 Pulse Oximetry 96 97 09/25/18 21:47 09/25/18 22:00 09/25/18 22:30 Temperature Pulse Rate 94 H 93 H Respiratory Rate 15 16 16 Blood Pressure 142/67 H 134/67 Pulse Oximetry 97 97 97 09/25/18 23:00 09/25/18 23:30 09/26/18 00:00 Temperature 98.2 F Pulse Rate 93 H 96 H 97 H Respiratory Rate 16 20 17 Blood Pressure 135/68 165/79 H 136/70 Pulse Oximetry 97 96 95 02/22/19 00:30 09/26/18 01:00 09/26/18 01:30 Temperature Pulse Rate 89 86 91 H Respiratory Rate 16 16 16 Blood Pressure 124/65 118/63 120/66 Pulse Oximetry 97 96 97 09/26/18 02:00 09/26/18 02:30 09/26/18 03:00 Temperature Pulse Rate 93 H 94 H 92 H Respiratory Rate 18 23 15 Blood Pressure 140/71 142/77 H 136/70 Pulse Oximetry 96 98 97 09/26/18 03:30 09/26/18 04:00 09/26/18 04:14 Temperature 98.5 F Pulse Rate 93 H 92 H 98 H Respiratory Rate 20 18 22 Blood Pressure 137/72 153/84 H Pulse Oximetry 98 97 96 09/26/18 04:30 09/26/18 05:00 09/26/18 05:05 Temperature Pulse Rate 93 H 91 H 91 H Respiratory Rate 17 16 18 Blood Pressure 151/83 H 159/77 H Pulse Oximetry 99 97 09/26/18 05:09 09/26/18 05:30 09/26/18 06:00 Temperature Pulse Rate 94 H 96 H Respiratory Rate 18 16 17 Blood Pressure 172/86 H 161/75 H Pulse Oximetry 97 97 09/26/18 07:00 09/26/18 07:30 09/26/18 08:00 Temperature 100.5 F H Pulse Rate 98 H 97 H 97 H Respiratory Rate 16 17 16 Blood Pressure 146/76 H 157/79 H 152/76 H Pulse Oximetry 99 98 98 09/26/18 08:30 09/26/18 09:21 09/26/18 10:00 Temperature Pulse Rate 96 H 100 H 110 H Respiratory Rate 17 15 Blood Pressure 152/73 H Pulse Oximetry 98 100 Intake & Output 09/25/18 09/26/18 09/26/18 18:59 06:59 18:59 Intake Total 1175 / 1175 2270 / 2270 50 / 50 Output Total 475 / 475 175 / 175 Balance 700 / 700 2095 / 2095 50 / 50 Weight 86.5 kg Intake: IV 1100 / 1100 2150 / 2150 50 / 50 D5W/LR Inj 1,000 ML @ 125 mls/ 1000 / 1000 2000 / 2000 hr IV.CONT .Q8H [facility] Rx#: [id number] Flexbumin 25% Inj 50 ML @ 60 100 / 100 50 / 50 50 / 50 mls/hr IV.SIG Q12H [facility] Rx#: [id number] Rocephin Inj 1,000 MG In NS Inj 100 / 100 100 ML @ 200 mls/hr IV.SIG Q24H [facility] Rx#:[id number] Oral 75 / 75 Tube Feeding 0 / 0 Tube Irrigant 120 / 120 Intake (Blood Product) Amt 0 / 0 Rbc As-3 Leukoreduced Unit 0 / 0 [id number] Output: Urine 175 / 175 Urine Amount (Catheter) 475 / 475 Indwelling Temp Sensing 475 / 475 Catheter Other: # Incontinent Voids 2 Date of Last Bowel Movement 09/24/18 09/24/18 09/24/18 # Bowel Movements 0 - Constitutional no acute distress - Routine HEENT Exam Head: Present: normocephalic - Routine Neck Exam Present: supple, trachea midline - Routine Respiratory Exam Present: patient mechanically ventilated - Routine Cardiovascular Exam Present: RRR, S1, S2 - Routine Abdominal Exam Present: distended - Detailed Abdominal Exam Bowel sounds: hypoactive Palpation/Percussion: Present: dullness to percussion - Routine Extremities Exam Present: edema - Routine Skin Exam Present: intact - Urinary Catheter Management Indwelling Temp Sensing Catheter Cath placed during this visit: yes, but has since been removed by the nurse Urethral indwelling: Yes Reason for continuing: Hourly intake/output Insertion date: 09/21/18 Insertion time: 20:00 Removal date: 09/25/18 Removal time: 15:45 Results - Labs CBC & Chem 7: 09/26/18 06:13 09/26/18 06:13 Laboratory Results - last 24 hr 09/21/18 09/24/18 09/25/18 19:26 19:11 11:34 WBC RBC Hgb Hct MCV MCH MCHC RDW Plt Count MPV Prelim Diff (Auto) Neut % (Auto) Lymph % (Auto) [place] % (Auto) Eos % (Auto) Baso % (Auto) Neut # (Auto) Lymph # (Auto) [place] # (Auto) Eos # (Auto) Baso # (Auto) WBC Differential Diff Scan Differential Comment Platelet Estimate Platelet Morphology Ovalocytes Acanthocytes (Spur) Keratocytes PT INR Sodium Potassium Chloride Carbon Dioxide Anion Gap BUN Creatinine Estimated GFR POC Glucose 167 H Random Glucose Calcium Phosphorus Magnesium Total Bilirubin AST ALT Alkaline Phosphatase Ammonia Total Protein Albumin Free T4 Total T3 MTS Gel Crossmatch See Detail See Detail 09/25/18 09/25/18 09/25/18 15:33 15:33 15:33 WBC RBC Hgb 9.1 L Hct 27.8 L MCV MCH MCHC RDW Plt Count MPV Prelim Diff (Auto) Neut % (Auto) Lymph % (Auto) [place] % (Auto) Eos % (Auto) Baso % (Auto) Neut # (Auto) Lymph # (Auto) [place] # (Auto) Eos # (Auto) Baso # (Auto) WBC Differential Diff Scan Differential Comment Platelet Estimate Platelet Morphology Ovalocytes Acanthocytes (Spur) Keratocytes PT INR Sodium Potassium Chloride Carbon Dioxide Anion Gap BUN Creatinine Estimated GFR POC Glucose Random Glucose Calcium Phosphorus Magnesium Total Bilirubin AST ALT Alkaline Phosphatase Ammonia Total Protein Albumin Free T4 0.82 Total T3 26 L MTS Gel Crossmatch 09/25/18 09/26/18 09/26/18 17:29 00:01 05:50 WBC RBC Hgb Hct MCV MCH MCHC RDW Plt Count MPV Prelim Diff (Auto) Neut % (Auto) Lymph % (Auto) [place] % (Auto) Eos % (Auto) Baso % (Auto) Neut # (Auto) Lymph # (Auto) [place] # (Auto) Eos # (Auto) Baso # (Auto) WBC Differential Diff Scan Differential Comment Platelet Estimate Platelet Morphology Ovalocytes Acanthocytes (Spur) Keratocytes PT INR Sodium Potassium Chloride Carbon Dioxide Anion Gap BUN Creatinine Estimated GFR POC Glucose 149 H 125 H 99 Random Glucose Calcium Phosphorus Magnesium Total Bilirubin AST ALT Alkaline Phosphatase Ammonia Total Protein Albumin Free T4 Total T3 MTS Gel Crossmatch 09/26/18 09/26/18 09/26/18 06:13 06:13 06:13 WBC 7.1 RBC 3.18 L Hgb 9.4 L Hct 27.3 L MCV 86.0 MCH 29.5 MCHC 34.3 RDW 16.8 Plt Count 56 L MPV 8.5 Prelim Diff (Auto) Slide review pending Neut % (Auto) 80.3 H Lymph % (Auto) 5.9 L [place] % (Auto) 10.8 H Eos % (Auto) 2.7 Baso % (Auto) 0.3 Neut # (Auto) 5.7 Lymph # (Auto) 0.4 L [place] # (Auto) 0.8 Eos # (Auto) 0.2 Baso # (Auto) 0.0 WBC Differential . Diff Scan Auto diff confirmed Differential Comment . Platelet Estimate Low L Platelet Morphology Normal Ovalocytes 1+ H Acanthocytes (Spur) Occ H Keratocytes Occ H PT 14.8 H INR 1.5 Sodium 149 H Potassium 3.9 Chloride 116 H Carbon Dioxide 25.3 Anion Gap 8 BUN 46 H Creatinine 1.37 H Estimated GFR 51 L POC Glucose Random Glucose 125 H Calcium 8.0 L Phosphorus 1.8 L Magnesium 2.0 Total Bilirubin 1.8 H AST 103 H ALT 49 Alkaline Phosphatase 73 Ammonia Total Protein 5.6 L Albumin 2.6 L Free T4 Total T3 MTS Gel Crossmatch 09/26/18 06:13 WBC RBC Hgb Hct MCV MCH MCHC RDW Plt Count MPV Prelim Diff (Auto) Neut % (Auto) Lymph % (Auto) [place] % (Auto) Eos % (Auto) Baso % (Auto) Neut # (Auto) Lymph # (Auto) [place] # (Auto) Eos # (Auto) Baso # (Auto) WBC Differential Diff Scan Differential Comment Platelet Estimate Platelet Morphology Ovalocytes Acanthocytes (Spur) Keratocytes PT INR Sodium Potassium Chloride Carbon Dioxide Anion Gap BUN Creatinine Estimated GFR POC Glucose Random Glucose Calcium Phosphorus Magnesium Total Bilirubin AST ALT Alkaline Phosphatase Ammonia 91 H Total Protein Albumin Free T4 Total T3 MTS Gel Crossmatch Microbiology 09/23/18 20:30 Sputum - Endotracheal Gram Stain - Final 09/23/18 20:30 Sputum - Endotracheal Sputum Culture - Final Heavy growth normal respiratory kristel - Imaging Impressions Chest X-Ray 09/26/18 06:00 CONCLUSION: Clear lungs. Assessment and Plan (1) Hematemesis Status: Deleted Code(s): K92.0 - Hematemesis (2) Cirrhosis Status: Deleted Code(s): K74.60 - Unspecified cirrhosis of liver (3) Hx of hepatitis C Status: Deleted Code(s): Z86.19 - Personal history of other infectious and parasitic diseases (4) Thrombocytopenia Status: Deleted Code(s): D69.6 - Thrombocytopenia, unspecified (5) Tinea corporis Status: Acute Code(s): B35.4 - Tinea corporis (6) Hepatocellular carcinoma Status: Acute Code(s): C22.0 - Liver cell carcinoma - Plan 09/22/2018 EGD due to melena Hematemesis and history of cirrhosis 09/21/2018 EGD with band ligation of varices : 1. Large blood clot/blood in the fundus. Antrum normal 2. Blood in duodenum 3. Retroflexed views revealed large blood clot -Total bili 1.1 AST 40 ALT 34 alk phos 68 ammonia 43 hemoglobin 8.2 -No noted bleeding per nursing 09/23/2018 Post EGD 09/21/2018 showing large blood clots in the fundus antrum was normal there was blood in the duodenal retroflexed views revealed large blood clot recommendations for FFP platelets IV octreotide and Protonix. 09/24/2018 Liver cirrhosis with hematemesis -patient had a EGD showing large clots in the fundus of the antrum on 09/21/2018 Patient is currently intubated with Protonix IV push twice daily, octreotide discontinued this morning Hepatitis C Tinea corporis under chest Chronic kidney insufficiency Hyper ammonia 109 doubled from yesterday's level Total CK is elevated at 1370 Hemoglobin 7.6 hematocrit 22.1 platelets 48 BUN 64 creatinine 1.94 09/25/2018 Liver cirrhosis-post EGD on 09/21/2018 revealing large clots in the fundus of the antrum. Patient currently receiving IV Protonix twice daily Hemoglobin 7.7 hematocrit 22.2 stable, to begin Xifaxan, lactulose and nadolol Hepatitis C CKI Hyper ammonia-84--NG tube placement for administration of lactulose Xifaxan and nadolol 09/26/2018 Liver cirrhosis with ascites status post EGD on 09/21/2018 revealing large clots in the fundus of the antrum History of hepatitis C hepatocellular carcinoma status post TACE procedure Hyper ammonia Hemoglobin 9.4 hematocrit 27.3 platelet 56 INR 1.5 Ammonia today is 91 total bilirubin 1.8 Plan -N.p.o. -per Dr. Pat sun with NG tube for medication -Monitor for active bleeding -Monitor labs -December 04 blood transfusion to keep hemoglobin between 7-8 -Protonix 40 mg IV twice daily -Avoid hepatotoxins -Avoid anticoagulants -Supportive care -Further recommendations to follow This patient has been seen by myself and Dr. Stewart and this note is written on his behalf - Attending Attestation Dr. Stewart (1) Hematemesis Qualifiers: Nausea presence: unspecified Qualified Code(s): K92.0 - Hematemesis (2) Cirrhosis Qualifiers: Ascites presence: unspecified
--- NOTE | 2018-09-26 14:28 | P.PNCC ---
Subjective Subjective Remarks/Hospital Course: 09/22: Overnight the patient underwent EGD 5 columns of esophageal varices was located but no bleeding was noted per large blood clot was noted in the fundus and the duodenum 0 hemoglobin and hematocrits continue last hemoglobin noted to be 7.9. The patient continues on Protonix and octreotide infusions currently. Patient was noted to have a low normal blood pressure on propofol infusion this is been discontinued. Versed and fentanyl infusions initiated to maintain ventilator synchrony. Patient noted to have acute kidney injury creatinine downtrending slightly peer nephrology has been consulted appreciate recommendations per patient with known ascites last known paracentesis approximately 4 months ago peer INR within normal limits invasive radiology has been consulted for possible paracentesis. 09/23: The patient underwent CT-guided paracentesis yesterday 5.2 L removed the patient's FiO2 requirements continue to decrease PEEP has been decreased down to 5 FiO2 of 40%. Urine output 770 cc in 24hr. Lactulose enemas have been added to medication regimen twice daily secondary to hyperammonemia. 09/24: Afebrile. Continues with low urine output. Ventilator settings stable. Went to A. fib with RVR. Laboratories pending. EKG pending. On fentanyl drip sedation 100 mcg an hour. 09/25: NG tube placed today. Remains on the ventilator. Withdraws to pain. Positive cough and gag. Ammonia level down to 84. SUBJECTIVE: 09/26: Currently resting in bed in no acute distress. Minimally responsive on the ventilator off all sedation. MRI of the brain currently pending. Ammonia level is currently 91. Objective Vital Signs / I&O: Vital Signs 09/25/18 14:51 09/25/18 15:30 09/25/18 15:49 Temperature Pulse Rate 92 H 100 H Respiratory Rate 14 16 14 Blood Pressure 149/68 H Pulse Oximetry 97 99 09/25/18 16:00 09/25/18 16:30 09/25/18 17:00 Temperature 98.8 F Pulse Rate 94 H 91 H 90 Respiratory Rate 14 15 13 Blood Pressure 141/64 H 123/60 122/60 Pulse Oximetry 99 99 99 09/25/18 17:30 09/25/18 17:45 09/25/18 18:00 Temperature Pulse Rate 92 H 92 H 91 H Respiratory Rate 14 13 Blood Pressure 138/65 126/63 Pulse Oximetry 98 98 09/25/18 18:30 02/21/19 19:00 09/25/18 19:30 Temperature Pulse Rate 90 89 86 Respiratory Rate 14 14 14 Blood Pressure 129/62 121/59 L 125/62 Pulse Oximetry 98 98 99 09/25/18 20:00 09/25/18 20:30 09/25/18 21:00 Temperature 98.6 F Pulse Rate 93 H 90 99 H Respiratory Rate 14 14 21 Blood Pressure 140/70 131/64 165/75 H Pulse Oximetry 99 98 96 09/25/18 21:30 09/25/18 21:44 09/25/18 21:47 Temperature Pulse Rate 93 H 96 H Respiratory Rate 17 16 15 Blood Pressure 137/65 Pulse Oximetry 97 97 09/25/18 22:00 09/25/18 22:30 09/25/18 23:00 Temperature Pulse Rate 94 H 93 H 93 H Respiratory Rate 16 16 16 Blood Pressure 142/67 H 134/67 135/68 Pulse Oximetry 97 97 97 09/25/18 23:30 09/26/18 00:00 09/26/18 00:30 Temperature 98.2 F Pulse Rate 96 H 97 H 89 Respiratory Rate 20 17 16 Blood Pressure 165/79 H 136/70 124/65 Pulse Oximetry 96 95 97 09/26/18 01:00 09/26/18 01:30 09/26/18 02:00 Temperature Pulse Rate 86 91 H 93 H Respiratory Rate 16 16 18 Blood Pressure 118/63 120/66 140/71 Pulse Oximetry 96 97 96 09/26/18 02:30 09/26/18 03:00 09/26/18 03:30 Temperature Pulse Rate 94 H 92 H 93 H Respiratory Rate 23 15 20 Blood Pressure 142/77 H 136/70 137/72 Pulse Oximetry 98 97 98 09/26/18 04:00 09/26/18 04:14 09/26/18 04:30 Temperature 98.5 F Pulse Rate 92 H 98 H 93 H Respiratory Rate 18 22 17 Blood Pressure 153/84 H 151/83 H Pulse Oximetry 97 96 99 09/26/18 05:00 09/26/18 05:05 09/26/18 05:09 Temperature Pulse Rate 91 H 91 H Respiratory Rate 16 18 18 Blood Pressure 159/77 H Pulse Oximetry 97 09/26/18 05:30 09/26/18 06:00 09/26/18 07:00 Temperature Pulse Rate 94 H 96 H 98 H Respiratory Rate 16 17 16 Blood Pressure 172/86 H 161/75 H 146/76 H Pulse Oximetry 97 97 99 09/26/18 07:30 09/26/18 08:00 09/26/18 08:30 Temperature 100.5 F H Pulse Rate 97 H 97 H 96 H Respiratory Rate 17 16 17 Blood Pressure 157/79 H 152/76 H 152/73 H Pulse Oximetry 98 98 98 09/26/18 09:21 09/26/18 10:00 09/26/18 11:30 Temperature Pulse Rate 100 H 110 H 104 H Respiratory Rate 15 14 Blood Pressure 163/85 H Pulse Oximetry 100 97 09/26/18 12:00 09/26/18 12:30 09/26/18 14:00 Temperature 97.9 F Pulse Rate 100 H 97 H 101 H Respiratory Rate 15 15 Blood Pressure 145/85 H 138/69 Pulse Oximetry 98 96 Intake & Output 09/25/18 09/26/18 09/26/18 18:59 06:59 18:59 Intake Total 1175 / 1175 2270 / 2270 50 / 50 Output Total 475 / 475 175 / 175 Balance 700 / 700 2095 / 2095 50 / 50 Weight 86.5 kg Intake: IV 1100 / 1100 2150 / 2150 50 / 50 D5W/LR Inj 1,000 ML @ 125 mls/ 1000 / 1000 2000 / 2000 hr IV.CONT .Q8H [facility] Rx#: [id number] Flexbumin 25% Inj 50 ML @ 60 100 / 100 50 / 50 50 / 50 mls/hr IV.SIG Q12H [facility] Rx#: [id number] Rocephin Inj 1,000 MG In NS Inj 100 / 100 100 ML @ 200 mls/hr IV.SIG Q24H [facility] Rx#:[id number] Oral 75 / 75 Tube Feeding 0 / 0 Tube Irrigant 120 / 120 Intake (Blood Product) Amt 0 / 0 Rbc As-3 Leukoreduced Unit 0 / 0 [id number] Output: Urine 175 / 175 Urine Amount (Catheter) 475 / 475 Indwelling Temp Sensing 475 / 475 Catheter Other: # Incontinent Voids 2 Date of Last Bowel Movement 09/24/18 09/24/18 09/24/18 # Bowel Movements 0 Result Diagrams: 09/26/18 06:13 02/22/19 06:13 Other Results: Microbiology 09/23/18 20:30 Sputum - Endotracheal Gram Stain - Final 09/23/18 20:30 Sputum - Endotracheal Sputum Culture - Final Heavy growth normal respiratory kristel Imaging: Chest X-Ray 09/21/18 21:44 CONCLUSION: Endotracheal tube in good position. Bibasal airspace disease. No prior study for comparison. Paracentesis CT 09/22/18 14:08 CONCLUSION: 1. Uncomplicated CT Guided paracentesis. Abdomen/Bladder Ultrasound 09/23/18 00:00 CONCLUSION: 1. Echogenic kidneys consistent with medical renal disease. 2. Cirrhotic liver with ascites. 3. Small right pleural effusion, likely hepatic hydrothorax. Chest X-Ray 09/24/18 04:00 CONCLUSION: 1. Stable elevation of the right hemidiaphragm. Mild atelectatic changes in the right lung base. 2. Stable position of endotracheal tube. Chest X-Ray 09/26/18 06:00 CONCLUSION: Clear lungs. Objective Remarks: GENERAL: This is a well-developed well-nourished chronically ill-appearing, currently intubated and sedated SKIN: Warm and dry. Ecchymosis noted bilateral forearm HEAD: Atraumatic. Normocephalic. EYES: Pupils equal and round. No scleral icterus. No injection or drainage. ENT: No nasal bleeding or discharge. Mucous membranes pink and moist. NECK: Trachea midline. No JVD. CARDIOVASCULAR: IRR. S1, S2. No S4. No murmur RESPIRATORY: No accessory muscle use. Clear to auscultation. Breath sounds equal bilaterally. GASTROINTESTINAL: Abdomen soft, umbilical hernia noted reducible, mildly distended. No guarding. Resolving abdominal rash with multiple pinpoint lesions back and legs MUSCULOSKELETAL: Extremities without clubbing, cyanosis, or edema. No obvious deformities. Noted 1+ bilateral pedal edema NEUROLOGICAL: Cranial nerves II through XII grossly intact. Positive cough and gag. Moves all 4 extremities spontaneously. Procedures: 09/21- EGD 09/22-CT guided paracentesis 2.5 L removed Assessment and Plan - Assessment and Plan Plan: NEURO/PSYCH: History of stroke with residual aphasia Midazolam and fentanyl infusions to maintain ventilator synchrony Goal of RASS -2. Daily sedation vacation MRI brain ordered today RESP: Acute respiratory failure PRVCD 15/ 100/1.05 Ventilator bundle Albuterol/ipratropium aerosols every 6 hours with albuterol aerosols every 2 hours as needed dyspnea To remain intubated for airway protection while observing for ongoing UGI bleeding. CXR clear with satisfactory ETT position. Spontaneous breathing trials when clinically indicated CV: Essential hypertension Atrial fibrillation currently normal sinus rhythm On amlodipine unknown dosage at home. Will hold. D5 LR 125 ml/hr while tube feeding Currently not requiring vasopressors. Holding chlorthalidone 5 mg daily. Metoprolol tartrate 12.5 3 times daily and as needed labetalol/Nitropaste for hypertension GI: Upper GI bleed secondary to esophageal varices now s/p banding Hx Hep C Cirrhosis Hepatocellular carcinoma s/p TACE procedure Recurrent ascites Hyperammonemia Hypoalbuminemia 221 placed NG/OG tube for gastroenterology okay for meds Currently on pantoprazole 40 mg IV twice daily Octreotide drip previously 25 mcg an hour discontinued 09/25. Serial hemoglobin and hematocrit last document stable around 8 09/21 GI consulted emergently, Dr. Beverly. Esophageal varices banded. Reportedly no active bleeding but unable to rule out gastric varices due to presence of clots in the stomach. 09/22paracentesis 5.2 L removed Lactulose enemas twice daily switch to Xifaxan 550 twice daily and lactulose 30 cc 4 times daily.. Recheck ammonia level in a.m. 09/27. Patient is on scheduled lactulose 30 cc 3 times daily at home. Ammonia level is currently 91 FEN/RENAL: ?MART (unknown baseline creatinine) Oliguria Burnett in place. Monitor I/O. Monitor electrolytes and replace as indicated per ICU electrolyte replacement protocol. IVF as per above. Albumin 12.5 twice daily Nephrology following Patient is on scheduled potassium chloride 20 mEq twice daily at home ID: Tinea corporis Ceftriaxone for SBP prophylaxis. Clotrimazole 1% cream bid. Patient was on a prednisone taper and triamcinolone acetate 0.1% and Vanicream topical daily to affected areas twice daily at home. Sputum culture no growth to date Previously on doxycycline hyclate 100 mg twice daily with food HEME: Acute blood loss anemia/normocytic Thrombocytopenia Coagulopathy with elevated INR Transfuse 3 units PRBCs, 1 unit FFP and 1 unit of platelets since admission Monitor CBC daily. Follow trends. INR has been CBC has been stable ENDO: Sliding scale insulin aspart insulin/low regimen to maintain euglycemia every 6 hours TSH 0.163. Follow-up on total T3/free T4 And vitamin D3. PROPH: SCDs for DVT prophylaxis. Pharmacologic DVT prophylaxis is contraindicated. Pantoprazole 40 mg IV twice daily ACCESS: [address] Level 3 follow-up Code Status: Full code Discussed Condition With: Daughter at bedside. Updated MRI brain today. Care plan discussed and all questions answered.
[2018-09-26] MEDS ORDERED: Phytonadione 5 MG/SWFI 5 ML Oral Syringe PO ONE (15:00)
[2018-09-26] MEDS ORDERED: Gadobutrol PF 10 MMOL/10 ML Vial (for RAD) IV.SIG ONE (15:04)
--- NOTE | 2018-09-26 15:33 | MR ---
EXAM DATE: 09/26/2018 3:21 PM EST AGE/SEX: 78 years / Male INDICATIONS: Altered mental status. CLINICAL DATA: This is the patient's initial encounter. Patient reports that signs and symptoms have been present for 1 day and indicates a pain score of 0/10. MEDICAL/SURGICAL HISTORY: Cirrhosis. Hepatitis C. Liver CA. CVA. Appendectomy. Cataract. COMPARISON: No prior exams available for comparison. TECHNIQUE: Multiplanar, multisequence examination of the brain was performed without and with 8.5 ml Gadavist (gadobutrol) contrast as a single exam dose. FINDINGS: Moderate motion artifact obscures fine detail. Cerebrum: Mild central and cortical atrophy with significant periventricular white matter. There is no restricted diffusion to suggest acute infarction. Minimal hemosiderosis is present in the mid left posterior sylvian region at site of what looks like an old infarct.. Posterior fossa is unremarkable. Upon intravenous administration of contrast there is no abnormal contrast enhancement. CONCLUSION: 1. Negative for acute process. Electronically signed by: Jaguar Coffey MD Board Certified Radiologist 09/26/2018 3:31 PM EST
[2018-09-26] MEDS: Labetalol HCl Inj 20 MG/4 ML Vial IV.PUSH PRN (16:18)
--- NOTE | 2018-09-26 17:06 | P.PNNP ---
Subjective Interval history: Patient is intubated and sedated, not in distress. Physical Exam Vital signs: Vital Signs 09/25/18 17:30 09/25/18 17:45 09/25/18 18:00 Temperature Pulse Rate 92 H 92 H 91 H Respiratory Rate 14 13 Blood Pressure 138/65 126/63 Pulse Oximetry 98 98 09/25/18 18:30 09/25/18 19:00 09/25/18 19:30 Temperature Pulse Rate 90 89 86 Respiratory Rate 14 14 14 Blood Pressure 129/62 121/59 L 125/62 Pulse Oximetry 98 98 99 09/25/18 20:00 09/25/18 20:30 09/25/18 21:00 Temperature 98.6 F Pulse Rate 93 H 90 99 H Respiratory Rate 14 14 21 Blood Pressure 140/70 131/64 165/75 H Pulse Oximetry 99 98 96 09/25/18 21:30 09/25/18 21:44 09/25/18 21:47 Temperature Pulse Rate 93 H 96 H Respiratory Rate 17 16 15 Blood Pressure 137/65 Pulse Oximetry 97 97 09/25/18 22:00 09/25/18 22:30 09/25/18 23:00 Temperature Pulse Rate 94 H 93 H 93 H Respiratory Rate 16 16 16 Blood Pressure 142/67 H 134/67 135/68 Pulse Oximetry 97 97 97 09/25/18 23:30 09/26/18 00:00 09/26/18 00:30 Temperature 98.2 F Pulse Rate 96 H 97 H 89 Respiratory Rate 20 17 16 Blood Pressure 165/79 H 136/70 124/65 Pulse Oximetry 96 95 97 09/26/18 01:00 09/26/18 01:30 09/26/18 02:00 Temperature Pulse Rate 86 91 H 93 H Respiratory Rate 16 16 18 Blood Pressure 118/63 120/66 140/71 Pulse Oximetry 96 97 96 09/26/18 02:30 09/26/18 03:00 09/26/18 03:30 Temperature Pulse Rate 94 H 92 H 93 H Respiratory Rate 23 15 20 Blood Pressure 142/77 H 136/70 137/72 Pulse Oximetry 98 97 98 09/26/18 04:00 09/26/18 04:14 09/26/18 04:30 Temperature 98.5 F Pulse Rate 92 H 98 H 93 H Respiratory Rate 18 22 17 Blood Pressure 153/84 H 151/83 H Pulse Oximetry 97 96 99 09/26/18 05:00 09/26/18 05:05 09/26/18 05:09 Temperature Pulse Rate 91 H 91 H Respiratory Rate 16 18 18 Blood Pressure 159/77 H Pulse Oximetry 97 09/26/18 05:30 09/26/18 06:00 09/26/18 07:00 Temperature Pulse Rate 94 H 96 H 98 H Respiratory Rate 16 17 16 Blood Pressure 172/86 H 161/75 H 146/76 H Pulse Oximetry 97 97 99 09/26/18 07:30 09/26/18 08:00 09/26/18 08:30 Temperature 100.5 F H Pulse Rate 97 H 97 H 96 H Respiratory Rate 17 16 17 Blood Pressure 157/79 H 152/76 H 152/73 H Pulse Oximetry 98 98 98 09/26/18 09:21 09/26/18 10:00 09/26/18 11:30 Temperature Pulse Rate 100 H 110 H 104 H Respiratory Rate 15 14 Blood Pressure 163/85 H Pulse Oximetry 100 97 09/26/18 12:00 09/26/18 12:30 09/26/18 14:00 Temperature 97.9 F Pulse Rate 100 H 97 H 101 H Respiratory Rate 15 15 Blood Pressure 145/85 H 138/69 Pulse Oximetry 98 96 09/26/18 15:26 09/26/18 15:30 09/26/18 15:43 Temperature Pulse Rate 104 H 101 H Respiratory Rate 17 18 Blood Pressure 182/86 H Pulse Oximetry 99 97 09/26/18 16:00 09/26/18 16:14 Temperature 99.8 F H Pulse Rate 97 H 98 H Respiratory Rate 15 16 Blood Pressure 149/71 H Pulse Oximetry 99 79 L Intake & Output 09/25/18 09/26/18 09/26/18 18:59 06:59 18:59 Intake Total 1175 / 1175 2270 / 2270 1050 / 1050 Output Total 475 / 475 175 / 175 Balance 700 / 700 2095 / 2095 1050 / 1050 Weight 86.5 kg Intake: IV 1100 / 1100 2150 / 2150 1050 / 1050 D5W/LR Inj 1,000 ML @ 125 mls/ 1000 / 1000 2000 / 2000 1000 / 1000 hr IV.CONT [facility] Rx#: [id number] Flexbumin 25% Inj 50 ML @ 60 100 / 100 50 / 50 50 / 50 mls/hr IV.SIG Q12H [facility] Rx#: [id number] Rocephin Inj 1,000 MG In NS Inj 100 / 100 100 ML @ 200 mls/hr IV.SIG Q24H [facility] Rx#:[id number] Oral 75 / 75 Tube Feeding 0 / 0 Tube Irrigant 120 / 120 Intake (Blood Product) Amt 0 / 0 Rbc As-3 Leukoreduced Unit 0 / 0 [id number] Output: Urine 175 / 175 Urine Amount (Catheter) 475 / 475 Indwelling Temp Sensing 475 / 475 Catheter Other: # Incontinent Voids 2 Date of Last Bowel Movement 09/24/18 09/24/18 09/24/18 # Bowel Movements 0 Narrative: GENERAL: Orally intubated. SKIN: Warm and dry. NECK: Supple, trachea midline. No JVD CARDIOVASCULAR: Regular rate and rhythm without murmurs, gallops, or rubs. RESPIRATORY: Breath sounds equal bilaterally. No accessory muscle use. Orally intubated. GASTROINTESTINAL: Abdomen soft, non-tender, distended. OG tube GI: Indwelling Burnett catheter, clear yellow urine. MUSCULOSKELETAL: No cyanosis, generalized edema upper and lower extremity BACK: Nontender without obvious deformity. No CVA tenderness. - Urinary Catheter Management Indwelling Temp Sensing Catheter Cath placed during this visit: yes, but has since been removed by the nurse Urethral indwelling: Yes Reason for continuing: Hourly intake/output Insertion date: 09/21/18 Insertion time: 20:00 Removal date: 09/25/18 Removal time: 15:45 Assessment and Plan - Assessment (1) Acute kidney failure Code(s): N17.9 - Acute kidney failure, unspecified Status: Acute (2) Respiratory failure Code(s): J96.90 - Respiratory failure, unspecified, unspecified whether with hypoxia or hypercapnia Status: Acute (3) Hepatocellular carcinoma Code(s): C22.0 - Liver cell carcinoma Status: Acute - Plan Patient with Chronic liver disease, and Hepatocellular carcinoma. Has GI bleeding and respiratory failure. BP is stable, Creatinine is better, now 1.3. K is normal Po4 is low and on replacement. Weaning as tolerated. Continue Hydration. Follow the urine out put and diuretics as needed.
[2018-09-26] MEDS: Metoprolol Tartrate 25 MG Tablet PO SCH (17:49)
[2018-09-27] MEDS: rifAXIMin 550 MG Tablet PO SCH ×2 (02:28→16:08)
[2018-09-27] MEDS: Oral Hygiene Kit OROPHARYNG SCH ×4 (03:55→16:09)
[2018-09-27 05:13] LABS: Baso % (Auto) 0.5 % (0.0-2.0); Eos # (Auto) 0.4 th/mm3 (0.0-0.4); Eos % (Auto) 5.7 % (0.0-4.0); Hematocrit 25.5 % (39.0-51.0); Hemoglobin 8.6 gm/dL (13.0-17.0); Lymph # (Auto) 0.4 th/mm3 (1.0-4.8); Mean Corpuscular HGB Conc 33.8 % (32.0-36.0); Mean Corpuscular Hemoglobin 29.1 pg (27.0-34.0); Mean Corpuscular Volume 86.1 fL (80.0-100.0); Mean Platelet Volume 8.7 fL (7.0-11.0); Mono # (Auto) 0.9 th/mm3 (0.0-0.9); Mono % (Auto) 12.3 % (0.0-8.0); Neut # (Auto) 5.4 th/mm3 (1.8-7.7); Neut % (Auto) 75.5 % (16.0-70.0); Platelet Count 52 th/mm3 (150-450); Red Blood Count 2.97 mil/mm3 (4.50-5.90); Red Cell Distribution Width 17.5 % (11.6-17.2); White Blood Count 7.1 th/mm3 (4.0-11.0)
[2018-09-27 05:36] LABS: Albumin 2.7 g/dL (3.4-5.0); Anion Gap 9 meq/L (5-15); Aspartate Aminotransferase 89 U/L (15-37); Blood Urea Nitrogen 41 mg/dL (7-18); Calcium 7.8 mg/dL (8.5-10.1); Carbon Dioxide 25.3 meq/L (21.0-32.0); Chloride 117 meq/L (98-107); Glomerular Filtration Rate 56 mL/min (>89); Glucose,Random 128 mg/dL (74-106); Phosphorus 2.2 mg/dL (2.5-4.9); Potassium 3.8 meq/L (3.5-5.1); Sodium 151 meq/L (136-145)
[2018-09-27 05:39] LABS: Alanine Aminotransferase 51 U/L (12-78); Alkaline Phosphatase 72 U/L (45-117); Total Protein 5.5 g/dL (6.4-8.2)
[2018-09-27] MEDS: Dextrose 5%/Lactated Ringer's 1,000 ML IV.CONT SCH (06:02)
[2018-09-27] MEDS: Insulin NovoLOG Aspart Correctional Sugar Inj SQ SCH ×4 (06:05→18:10)
--- NOTE | 2018-09-27 06:32 | XR ---
EXAM DATE: 09/27/2018 6:02 AM EST AGE/SEX: 78 years / Male INDICATIONS: Respiratory distress. CLINICAL DATA: This is the patient's subsequent encounter. Patient reports that signs and symptoms h ave been present for 4 - 6 days and indicates a pain score of Nonresponsive. MEDICAL/SURGICAL HISTORY: Anemia. Cirrhosis. Hepatitis C. Appendectomy. COMPARISON: [facility] – [place], CHEST 1V SINGLE AP, 09/26/2018. . FINDINGS: A single AP view of the chest demonstrates low lung volumes. Tip of endotracheal tube 4 cm from the c lonnie. Tip of the nasogastric tube in the body the stomach. No infiltrate or effusion. Heart is melonie l in size. CONCLUSION: Clear lungs. Electronically signed by: Dandre Soto MD Board Certified Radiologist 09/27/2018 6:31 AM EST
[2018-09-27 07:07] LABS: Acanthocytes Occ; Ovalocytes 1+; Platelet Morphology Normal (Normal)
[2018-09-27] MEDS: Artificial Tears Opth Drops 15 ML Bottle EACH EYE SCH ×3 (07:44→16:09)
[2018-09-27] MEDS: Chlorhexidine 0.12% Oral Kit 15 ML UDC OROPHARYNG SCH ×2 (07:44→20:08)
[2018-09-27] MEDS: Pantoprazole Inj 40 MG Vial IV.PUSH SCH ×2 (08:46→20:01)
[2018-09-27] MEDS: Metoprolol Tartrate 25 MG Tablet PO SCH ×3 (08:46→18:40)
[2018-09-27] MEDS: Clotrimazole 1% Cream 15 GM Tube TOPICAL SCH ×2 (08:47→20:08)
[2018-09-27] MEDS: Senna/Docusate Sodium 8.6/50 MG Tablet PO SCH ×2 (08:47→20:02)
[2018-09-27] MEDS: Albumin Human 25% Inj 50 ML IV.SIG SCH ×2 (09:29→22:04)
--- NOTE | 2018-09-27 09:43 | P.PNCC ---
Subjective Subjective Remarks/Hospital Course: 09/22: Overnight the patient underwent EGD 5 columns of esophageal varices was located but no bleeding was noted per large blood clot was noted in the fundus and the duodenum 0 hemoglobin and hematocrits continue last hemoglobin noted to be 7.9. The patient continues on Protonix and octreotide infusions currently. Patient was noted to have a low normal blood pressure on propofol infusion this is been discontinued. Versed and fentanyl infusions initiated to maintain ventilator synchrony. Patient noted to have acute kidney injury creatinine downtrending slightly peer nephrology has been consulted appreciate recommendations per patient with known ascites last known paracentesis approximately 4 months ago peer INR within normal limits invasive radiology has been consulted for possible paracentesis. 09/23: The patient underwent CT-guided paracentesis yesterday 5.2 L removed the patient's FiO2 requirements continue to decrease PEEP has been decreased down to 5 FiO2 of 40%. Urine output 770 cc in 24hr. Lactulose enemas have been added to medication regimen twice daily secondary to hyperammonemia. 09/24: Afebrile. Continues with low urine output. Ventilator settings stable. Went to A. fib with RVR. Laboratories pending. EKG pending. On fentanyl drip sedation 100 mcg an hour. 09/25: NG tube placed today. Remains on the ventilator. Withdraws to pain. Positive cough and gag. Ammonia level down to 84. 09/26: Currently resting in bed in no acute distress. Minimally responsive on the ventilator off all sedation. MRI of the brain currently pending. Ammonia level is currently 91. SUBJECTIVE: 09/27: Afebrile. More awake today. MRI brain revealed no acute findings. Currently on CPAP trial. Objective Vital Signs / I&O: Vital Signs 09/26/18 10:00 09/26/18 11:30 09/26/18 12:00 Temperature 97.9 F Pulse Rate 110 H 104 H 100 H Respiratory Rate 14 15 Blood Pressure 163/85 H 145/85 H Pulse Oximetry 97 98 09/26/18 12:30 09/26/18 14:00 09/26/18 15:26 Temperature Pulse Rate 97 H 101 H Respiratory Rate 15 Blood Pressure 138/69 Pulse Oximetry 96 99 09/26/18 15:30 09/26/18 15:43 09/26/18 16:00 Temperature 99.8 F H Pulse Rate 104 H 101 H 97 H Respiratory Rate 17 18 15 Blood Pressure 182/86 H Pulse Oximetry 97 99 09/26/18 16:14 09/26/18 17:54 09/26/18 18:00 Temperature Pulse Rate 98 H 81 83 Respiratory Rate 16 16 Blood Pressure 149/71 H Pulse Oximetry 79 L 100 09/26/18 20:00 09/26/18 20:30 09/26/18 20:48 Temperature 98.6 F Pulse Rate 85 87 Respiratory Rate 17 18 18 Blood Pressure 150/78 H Pulse Oximetry 99 100 09/26/18 22:00 09/26/18 23:59 09/27/18 00:00 Temperature 98 F Pulse Rate 93 H 93 H Respiratory Rate 17 17 Blood Pressure 150/83 H Pulse Oximetry 98 98 09/27/18 02:00 09/27/18 03:49 09/27/18 03:50 Temperature Pulse Rate 86 86 86 Respiratory Rate 17 Blood Pressure Pulse Oximetry 09/27/18 03:51 09/27/18 04:00 09/27/18 06:00 Temperature 98 F Pulse Rate 87 89 Respiratory Rate 17 17 Blood Pressure 162/82 H Pulse Oximetry 100 96 09/27/18 07:30 09/27/18 08:00 09/27/18 09:08 Temperature 97.7 F Pulse Rate 94 H 89 88 Respiratory Rate 20 18 19 Blood Pressure 143/77 H 144/81 H Pulse Oximetry 97 98 Intake & Output 09/26/18 09/27/18 09/27/18 18:59 06:59 18:59 Intake Total 1570 / 1570 1150 / 1150 Output Total 400 / 400 350 / 350 Balance 1170 / 1170 800 / 800 Weight 89 kg Intake: IV 1310 / 1310 1150 / 1150 D5W/LR Inj 1,000 ML @ 125 mls/ 1000 / 1000 1000 / 1000 hr IV.CONT .Q8H [facility] Rx#: [id number] Flexbumin 25% Inj 50 ML @ 60 50 / 50 50 / 50 mls/hr IV.SIG Q12H [facility] Rx#: [id number] Potassium Phosphate Inj 30 MMOL 260 / 260 In NS Inj 250 ML @ 42 mls/hr IV.SIG UNSCH PRN Rx#:[id number] Rocephin Inj 1,000 MG In NS Inj 100 / 100 100 ML @ 200 mls/hr IV.SIG Q24H [facility] Rx#:[id number] Oral 0 / 0 Water Bolus Amount 260 / 260 Output: Urine 400 / 400 350 / 350 Other: Date of Last Bowel Movement 09/24/18 09/24/18 09/24/18 # Bowel Movements 0 Result Diagrams: 09/27/18 04:49 09/27/18 04:49 Other Results: Microbiology 09/23/18 20:30 Sputum - Endotracheal Gram Stain - Final 09/23/18 20:30 Sputum - Endotracheal Sputum Culture - Final Heavy growth normal respiratory kristel Imaging: Chest X-Ray 09/21/18 21:44 CONCLUSION: Endotracheal tube in good position. Bibasal airspace disease. No prior study for comparison. Paracentesis CT 09/22/18 14:08 CONCLUSION: 1. Uncomplicated CT Guided paracentesis. Abdomen/Bladder Ultrasound 09/23/18 00:00 CONCLUSION: 1. Echogenic kidneys consistent with medical renal disease. 2. Cirrhotic liver with ascites. 3. Small right pleural effusion, likely hepatic hydrothorax. Chest X-Ray 09/24/18 04:00 CONCLUSION: 1. Stable elevation of the right hemidiaphragm. Mild atelectatic changes in the right lung base. 2. Stable position of endotracheal tube. Head MRI 09/26/18 00:00 CONCLUSION: 1. Negative for acute process. Chest X-Ray 09/26/18 06:00 CONCLUSION: Clear lungs. Chest X-Ray 09/27/18 06:00 CONCLUSION: Clear lungs. Objective Remarks: GENERAL: This is a well-developed well-nourished chronically ill-appearing, currently intubated in no acute distress SKIN: Warm and dry. Ecchymosis noted bilateral forearm HEAD: Atraumatic. Normocephalic. EYES: Pupils equal and round. No scleral icterus. No injection or drainage. ENT: No nasal bleeding or discharge. Mucous membranes pink and moist. NECK: Trachea midline. No JVD. CARDIOVASCULAR: IRR. S1, S2. No S4. No murmur RESPIRATORY: No accessory muscle use. Clear to auscultation. Breath sounds equal bilaterally. GASTROINTESTINAL: Abdomen soft, umbilical hernia noted reducible, mildly distended. No guarding. Resolving abdominal rash with multiple pinpoint lesions back and legs MUSCULOSKELETAL: Extremities without clubbing, cyanosis, or edema. No obvious deformities. Noted 1+ bilateral pedal edema NEUROLOGICAL: Cranial nerves II through XII grossly intact. Positive cough and gag. Moves all 4 extremities spontaneously. Procedures: 09/21- EGD 09/22-CT guided paracentesis 2.5 L removed Assessment and Plan - Assessment and Plan Plan: NEURO/PSYCH: History of stroke with residual aphasia Midazolam and fentanyl infusions to maintain ventilator synchrony Goal of RASS -2. Daily sedation vacation MRI brain 09/26 without acute intracranial findings RESP: Acute respiratory failure PRVCD 15 100/1./ Currently on CPAP trial 05/09 at 40% Ventilator bundle Albuterol/ipratropium aerosols every 6 hours with albuterol aerosols every 2 hours as needed dyspnea To remain intubated for airway protection while observing for ongoing UGI bleeding. CXR clear with satisfactory ETT position. Spontaneous breathing trials when clinically indicated CV: Essential hypertension Atrial fibrillation currently normal sinus rhythm On amlodipine unknown dosage at home. Will hold. D5 LR 125 ml/hr while tube feeding currently on hold. Switch to D5 one quarter normal saline at 100 cc an hour while n.p.o. Currently not requiring vasopressors. Holding chlorthalidone 5 mg daily. Metoprolol tartrate 12.5 3 times daily and as needed labetalol/Nitropaste for hypertension GI: Upper GI bleed secondary to esophageal varices now s/p banding Hx Hep C Cirrhosis Hepatocellular carcinoma s/p TACE procedure Recurrent ascites Hyperammonemia Hypoalbuminemia 221 placed NG/OG tube for gastroenterology okay for meds Currently on pantoprazole 40 mg IV twice daily Octreotide drip previously 25 mcg an hour discontinued 09/25. Serial hemoglobin and hematocrit last document stable around 8 09/21 GI consulted emergently, Dr. Beverly. Esophageal varices banded. Reportedly no active bleeding but unable to rule out gastric varices due to presence of clots in the stomach. 09/22paracentesis 5.2 L removed Lactulose enemas twice daily switch to Xifaxan 550 twice daily and lactulose 30 cc 4 times daily.. Recheck ammonia level in a.m. 09/27 is down to 58. Patient is on scheduled lactulose 30 cc 3 times daily at home. FEN/RENAL: ?[facility] (unknown baseline creatinine) Oliguria Hypernatremia Hypophosphatemia Burnett in place. Monitor I/O. Monitor electrolytes and replace as indicated per ICU electrolyte replacement protocol. IVF as per above. Albumin 12.5 twice daily Nephrology following Patient is on scheduled potassium chloride 20 mEq twice daily at home Potassium phosphate 30 mmol IV times 1 now for recheck in a.m. ID: Tinea corporis Ceftriaxone for SBP prophylaxis. Clotrimazole 1% cream bid. Patient was on a prednisone taper and triamcinolone acetate 0.1% and Vanicream topical daily to affected areas twice daily at home. Sputum culture no growth to date Previously on doxycycline hyclate 100 mg twice daily with food HEME: Acute blood loss anemia/normocytic Thrombocytopenia Coagulopathy with elevated INR Transfuse 3 units PRBCs, 1 unit FFP and 1 unit of platelets since admission Monitor CBC daily. Follow trends. INR has been CBC has been stable ENDO: Sliding scale insulin aspart insulin/low regimen to maintain euglycemia every 6 hours TSH 0.163. Total T3 is low. Free T3 was/low normal. PROPH: SCDs for DVT prophylaxis. Pharmacologic DVT prophylaxis is contraindicated. Pantoprazole 40 mg IV twice daily ACCESS: [address] Level 3 follow-up Code Status: Full code Discussed Condition With: Daughter at bedside yesterday 09/26.
[2018-09-27] MEDS: Dextrose 5%/NaCl 0.225% Inj 1,000 ML IV.CONT SCH ×2 (10:04→20:04)
[2018-09-27] MEDS: Labetalol HCl Inj 20 MG/4 ML Vial IV.PUSH PRN (10:39)
[2018-09-27] MEDS ORDERED: Potassium Phosphate Inj 30 MMOL in Sodium Chlor 0.9% Inj 250 ML IV.SIG ONE (11:00)
--- NOTE | 2018-09-27 13:17 | P.PNNP ---
Subjective Interval history: Patient remains intubated opens eyes distended abdominal ascites present Physical Exam Vital signs: Vital Signs 09/26/18 14:00 09/26/18 15:26 09/26/18 15:30 Temperature Pulse Rate 101 H 104 H Respiratory Rate 17 Blood Pressure Pulse Oximetry 99 09/26/18 15:43 09/26/18 16:00 09/26/18 16:14 Temperature 99.8 F H Pulse Rate 101 H 97 H 98 H Respiratory Rate 18 15 16 Blood Pressure 182/86 H 149/71 H Pulse Oximetry 97 99 79 L 09/26/18 17:54 09/26/18 18:00 09/26/18 20:00 Temperature 98.6 F Pulse Rate 81 83 85 Respiratory Rate 16 17 Blood Pressure 150/78 H Pulse Oximetry 100 99 09/26/18 20:30 09/26/18 20:48 09/26/18 22:00 Temperature Pulse Rate 87 93 H Respiratory Rate 18 18 Blood Pressure Pulse Oximetry 100 09/26/18 23:59 09/27/18 00:00 09/27/18 02:00 Temperature 98 F Pulse Rate 93 H 86 Respiratory Rate 17 17 Blood Pressure 150/83 H Pulse Oximetry 98 98 09/27/18 03:49 09/27/18 03:50 09/27/18 03:51 Temperature Pulse Rate 86 86 Respiratory Rate 17 17 Blood Pressure Pulse Oximetry 100 09/27/18 04:00 09/27/18 06:00 09/27/18 07:30 Temperature 98 F Pulse Rate 87 89 94 H Respiratory Rate 17 20 Blood Pressure 162/82 H 143/77 H Pulse Oximetry 96 97 09/27/18 08:00 09/27/18 09:08 09/27/18 10:00 Temperature 97.7 F Pulse Rate 89 88 94 H Respiratory Rate 18 19 20 Blood Pressure 144/81 H 174/101 H Pulse Oximetry 98 97 09/27/18 10:30 09/27/18 11:00 09/27/18 11:26 Temperature Pulse Rate 95 H 77 Respiratory Rate 24 19 21 Blood Pressure 185/100 H 126/74 Pulse Oximetry 97 96 09/27/18 11:30 09/27/18 12:00 Temperature 98.2 F Pulse Rate 78 72 Respiratory Rate 19 16 Blood Pressure 128/77 127/69 Pulse Oximetry 99 99 Intake & Output 0209/27/18 09/27/18 18:59 06:59 18:59 Intake Total 1570 / 1570 1150 / 1150 110 / 110 Output Total 400 / 400 350 / 350 Balance 1170 / 1170 800 / 800 110 / 110 Weight 89 kg Intake: IV 1310 / 1310 1150 / 1150 50 / 50 D5W/LR Inj 1,000 ML @ 125 mls/ 1000 / 1000 1000 / 1000 hr IV.CONT .Q8H [facility] Rx#: [id number] Flexbumin 25% Inj 50 ML @ 60 50 / 50 50 / 50 50 / 50 mls/hr IV.SIG Q12H [facility] Rx#: [id number] Potassium Phosphate Inj 30 MMOL 260 / 260 In NS Inj 250 ML @ 42 mls/hr IV.SIG UNSCH PRN Rx#:[id number] Rocephin Inj 1,000 MG In NS Inj 100 / 100 100 ML @ 200 mls/hr IV.SIG Q24H [facility] Rx#:[id number] Oral 0 / 0 Water Bolus Amount 260 / 260 60 / 60 Output: Urine 400 / 400 350 / 350 Other: # Incontinent Voids 1 Date of Last Bowel Movement 09/24/18 09/24/18 09/24/18 # Bowel Movements 0 Narrative: GENERAL: Orally intubated. SKIN: Warm and dry. NECK: Supple, trachea midline. No JVD CARDIOVASCULAR: Regular rate and rhythm without murmurs, gallops, or rubs. RESPIRATORY: Breath sounds equal bilaterally. No accessory muscle use. Orally intubated. GASTROINTESTINAL: Abdomen soft, non-tender, distended. OG tube GI: Indwelling Burnett catheter, clear yellow urine. MUSCULOSKELETAL: No cyanosis, generalized edema upper and lower extremity BACK: Nontender without obvious deformity. No CVA tenderness. - Urinary Catheter Management Indwelling Temp Sensing Catheter Cath placed during this visit: yes, but has since been removed by the nurse Urethral indwelling: Yes Reason for continuing: Hourly intake/output Insertion date: 09/21/18 Insertion time: 20:00 Removal date: 09/25/18 Removal time: 15:45 Assessment and Plan - Plan Patient with type II hepatorenal syndrome sodium less than 5, this syndrome impairment is less severe however patient has ascites and which is resistant to diuretics, Creatinine is better, now 1.2. Sodium 151, ammonia 58, INR 1.5 Continue Hydration. Weaning as per CCM.
--- NOTE | 2018-09-27 20:43 | P.PNGI ---
Subjective Interval history: Patient intubated Physical Exam Vital signs: Vital Signs 09/26/18 20:48 09/26/18 22:00 09/26/18 23:59 Temperature Pulse Rate 87 93 H Respiratory Rate 18 17 Blood Pressure Pulse Oximetry 98 09/27/18 00:00 09/27/18 02:00 09/27/18 03:49 Temperature 98 F Pulse Rate 93 H 86 86 Respiratory Rate 17 Blood Pressure 150/83 H Pulse Oximetry 98 09/27/18 03:50 09/27/18 03:51 09/27/18 04:00 Temperature 98 F Pulse Rate 86 87 Respiratory Rate 17 17 17 Blood Pressure 162/82 H Pulse Oximetry 100 96 09/27/18 06:00 09/27/18 07:30 09/27/18 08:00 Temperature 97.7 F Pulse Rate 89 94 H 89 Respiratory Rate 20 18 Blood Pressure 143/77 H 144/81 H Pulse Oximetry 97 98 09/27/18 09:08 09/27/18 10:00 09/27/18 10:30 Temperature Pulse Rate 88 94 H 95 H Respiratory Rate 19 20 24 Blood Pressure 174/101 H 185/100 H Pulse Oximetry 97 97 09/27/18 11:00 09/27/18 11:26 09/27/18 11:30 Temperature Pulse Rate 77 78 Respiratory Rate 19 21 19 Blood Pressure 126/74 128/77 Pulse Oximetry 96 99 09/27/18 12:00 09/27/18 14:00 09/27/18 15:34 Temperature 98.2 F Pulse Rate 72 72 83 Respiratory Rate 16 18 Blood Pressure 127/69 Pulse Oximetry 99 09/27/18 16:00 09/27/18 18:00 09/27/18 20:19 Temperature 98.1 F Pulse Rate 76 76 81 Respiratory Rate 17 21 Blood Pressure 133/75 Pulse Oximetry 99 09/27/18 20:21 Temperature Pulse Rate Respiratory Rate 21 Blood Pressure Pulse Oximetry 97 Intake & Output 09/27/18 09/27/18 09/28/18 06:59 18:59 06:59 Intake Total 1150 / 1150 370 / 370 1000 / 1000 Output Total 350 / 350 650 / 650 Balance 800 / 800 -280 / -280 1000 / 1000 Weight 89 kg Intake: IV 1150 / 1150 310 / 310 1000 / 1000 D5W/LR Inj 1,000 ML @ 125 mls/ 1000 / 1000 hr IV.CONT .Q8H [facility] Rx#: [id number] D5W/1/4 NS Inj 1,000 ML @ 100 1000 / 1000 mls/hr IV.CONT .Q10H [facility] Rx#: [id number] Flexbumin 25% Inj 50 ML @ 60 50 / 50 50 / 50 mls/hr IV.SIG Q12H [facility] Rx#: [id number] Potassium Phosphate Inj 30 MMOL 260 / 260 In NS Inj 250 ML @ 43.333 mls/ hr IV.SIG ONCE ONE Rx#:[id number] Rocephin Inj 1,000 MG In NS Inj 100 / 100 100 ML @ 200 mls/hr IV.SIG Q24H [facility] Rx#:[id number] Oral 0 / 0 Water Bolus Amount 60 / 60 Output: Urine 350 / 350 650 / 650 Other: # Incontinent Voids 1 Date of Last Bowel Movement 09/24/18 09/24/18 # Bowel Movements 0 - Constitutional no acute distress - Routine HEENT Exam Head: Present: normocephalic ENT: Present: mucous membranes dry - Routine Neck Exam Present: supple - Routine Respiratory Exam Present: patient mechanically ventilated - Routine Cardiovascular Exam Present: RRR - Routine Abdominal Exam Present: soft, distended. Absent: tenderness Comments: Large ascites - Routine Extremities Exam Absent: cyanosis, clubbing - Urinary Catheter Management Indwelling Temp Sensing Catheter Cath placed during this visit: yes, but has since been removed by the nurse Urethral indwelling: Yes Reason for continuing: Hourly intake/output Insertion date: 09/21/18 Insertion time: 20:00 Removal date: 09/25/18 Removal time: 15:45 Results - Labs CBC & Chem 7: 09/27/18 04:49 09/27/18 04:49 Laboratory Results - last 24 hr 09/27/18 09/27/18 09/27/18 00:05 04:49 04:49 WBC 7.1 RBC 2.97 L Hgb 8.6 L Hct 25.5 L MCV 86.1 MCH 29.1 MCHC 33.8 RDW 17.5 H Plt Count 52 L MPV 8.7 Prelim Diff (Auto) Slide review pending Neut % (Auto) 75.5 H Lymph % (Auto) 6.0 L [place] % (Auto) 12.3 H Eos % (Auto) 5.7 H Baso % (Auto) 0.5 Neut # (Auto) 5.4 Lymph # (Auto) 0.4 L [place] # (Auto) 0.9 Eos # (Auto) 0.4 Baso # (Auto) 0.0 WBC Differential . Diff Scan Auto diff confirmed Differential Comment . Platelet Estimate Low L Platelet Morphology Normal Ovalocytes 1+ H Acanthocytes (Spur) Occ H Keratocytes Occ H Sodium 151 H Potassium 3.8 Chloride 117 H Carbon Dioxide 25.3 Anion Gap 9 BUN 41 H Creatinine 1.26 Estimated GFR 56 L POC Glucose 148 H Random Glucose 128 H Calcium 7.8 L Phosphorus 2.2 L Magnesium 2.0 Total Bilirubin 1.9 H AST 89 H ALT 51 Alkaline Phosphatase 72 Ammonia Total Protein 5.5 L Albumin 2.7 L 09/27/18 09/27/18 09/27/18 04:49 11:20 13:09 WBC RBC Hgb Hct MCV MCH MCHC RDW Plt Count MPV Prelim Diff (Auto) Neut % (Auto) Lymph % (Auto) [place] % (Auto) Eos % (Auto) Baso % (Auto) Neut # (Auto) Lymph # (Auto) [place] # (Auto) Eos # (Auto) Baso # (Auto) WBC Differential Diff Scan Differential Comment Platelet Estimate Platelet Morphology Ovalocytes Acanthocytes (Spur) Keratocytes Sodium Potassium Chloride Carbon Dioxide Anion Gap BUN Creatinine Estimated GFR POC Glucose 136 H 136 H Random Glucose Calcium Phosphorus Magnesium Total Bilirubin AST ALT Alkaline Phosphatase Ammonia 58 H Total Protein Albumin 09/27/18 17:53 WBC RBC Hgb Hct MCV MCH MCHC RDW Plt Count MPV Prelim Diff (Auto) Neut % (Auto) Lymph % (Auto) [place] % (Auto) Eos % (Auto) Baso % (Auto) Neut # (Auto) Lymph # (Auto) [place] # (Auto) Eos # (Auto) Baso # (Auto) WBC Differential Diff Scan Differential Comment Platelet Estimate Platelet Morphology Ovalocytes Acanthocytes (Spur) Keratocytes Sodium Potassium Chloride Carbon Dioxide Anion Gap BUN Creatinine Estimated GFR POC Glucose 129 H Random Glucose Calcium Phosphorus Magnesium Total Bilirubin AST ALT Alkaline Phosphatase Ammonia Total Protein Albumin - Imaging Impressions Chest X-Ray 09/27/18 06:00 CONCLUSION: Clear lungs. Assessment and Plan (1) Hematemesis Status: Deleted Code(s): K92.0 - Hematemesis (2) Cirrhosis Status: Deleted Code(s): K74.60 - Unspecified cirrhosis of liver (3) Hx of hepatitis C Status: Deleted Code(s): Z86.19 - Personal history of other infectious and parasitic diseases (4) Thrombocytopenia Status: Deleted Code(s): D69.6 - Thrombocytopenia, unspecified (5) Tinea corporis Status: Acute Code(s): B35.4 - Tinea corporis (6) Hepatocellular carcinoma Status: Acute Code(s): C22.0 - Liver cell carcinoma - Plan 09/22/2018 EGD due to melena Hematemesis and history of cirrhosis 09/21/2018 EGD with band ligation of varices : 1. Large blood clot/blood in the fundus. Antrum normal 2. Blood in duodenum 3. Retroflexed views revealed large blood clot -Total bili 1.1 AST 40 ALT 34 alk phos 68 ammonia 43 hemoglobin 8.2 -No noted bleeding per nursing 09/23/2018 Post EGD 09/21/2018 showing large blood clots in the fundus antrum was normal there was blood in the duodenal retroflexed views revealed large blood clot recommendations for FFP platelets IV octreotide and Protonix. 09/24/2018 Liver cirrhosis with hematemesis -patient had a EGD showing large clots in the fundus of the antrum on 09/21/2018 Patient is currently intubated with Protonix IV push twice daily, octreotide discontinued this morning Hepatitis C Tinea corporis under chest Chronic kidney insufficiency Hyper ammonia 109 doubled from yesterday's level Total CK is elevated at 1370 Hemoglobin 7.6 hematocrit 22.1 platelets 48 BUN 64 creatinine 1.94 09/25/2018 Liver cirrhosis-post EGD on 09/21/2018 revealing large clots in the fundus of the antrum. Patient currently receiving IV Protonix twice daily Hemoglobin 7.7 hematocrit 22.2 stable, to begin Xifaxan, lactulose and nadolol Hepatitis C CKI Hyper ammonia-84--NG tube placement for administration of lactulose Xifaxan and nadolol 09/26/2018 Liver cirrhosis with ascites status post EGD on 09/21/2018 revealing large clots in the fundus of the antrum History of hepatitis C hepatocellular carcinoma status post TACE procedure Hyper ammonia Hemoglobin 9.4 hematocrit 27.3 platelet 56 INR 1.5 Ammonia today is 91 total bilirubin 1.8 Plan -Monitor for active bleeding -Monitor labs -May 2 blood transfusion to keep hemoglobin between 7-8 -Protonix 40 mg IV twice daily -Avoid hepatotoxins -Avoid anticoagulants -Supportive care -Further recommendations to follow Prognosis poor (1) Hematemesis Qualifiers: Nausea presence: unspecified Qualified Code(s): K92.0 - Hematemesis (2) Cirrhosis Qualifiers: Ascites presence: unspecified
[2018-09-27 22:40] LABS: Alanine Aminotransferase 47 U/L (12-78); Albumin 2.8 g/dL (3.4-5.0); Anion Gap 9 meq/L (5-15); Aspartate Aminotransferase 72 U/L (15-37); Blood Urea Nitrogen 40 mg/dL (7-18); Calcium 8.7 mg/dL (8.5-10.1); Carbon Dioxide 24.5 meq/L (21.0-32.0); Chloride 115 meq/L (98-107); Glomerular Filtration Rate 55 mL/min (>89); Glucose,Random 120 mg/dL (74-106); Magnesium 2.2 mg/dL (1.5-2.5); Phosphorus 2.9 mg/dL (2.5-4.9); Potassium 3.9 meq/L (3.5-5.1); Sodium 148 meq/L (136-145)
[2018-09-27 22:46] LABS: Alkaline Phosphatase 75 U/L (45-117); Alpha Fetoprotein Tumor Marker 4.3 ng/mL (0.5-8.0); Total Protein 5.6 g/dL (6.4-8.2)
[2018-09-28] MEDS: Insulin NovoLOG Aspart Correctional Sugar Inj SQ SCH ×4 (00:27→18:39)
[2018-09-28] MEDS: Artificial Tears Opth Drops 15 ML Bottle EACH EYE SCH ×3 (00:50→17:46)
[2018-09-28] MEDS: Oral Hygiene Kit OROPHARYNG SCH ×4 (00:50→15:39)
[2018-09-28] MEDS: rifAXIMin 550 MG Tablet PO SCH ×2 (03:20→15:39)
[2018-09-28] MEDS: Dextrose 5%/NaCl 0.225% Inj 1,000 ML IV.CONT SCH ×2 (06:31→17:55)
[2018-09-28 07:03] LABS: Baso % (Auto) 0.3 % (0.0-2.0); Eos # (Auto) 0.3 th/mm3 (0.0-0.4); Eos % (Auto) 3.5 % (0.0-4.0); Hematocrit 26.3 % (39.0-51.0); Hemoglobin 8.8 gm/dL (13.0-17.0); Lymph # (Auto) 0.6 th/mm3 (1.0-4.8); Lymph % (Auto) 7.4 % (9.0-44.0); Mean Corpuscular HGB Conc 33.5 % (32.0-36.0); Mean Corpuscular Hemoglobin 28.7 pg (27.0-34.0); Mean Corpuscular Volume 85.7 fL (80.0-100.0); Mean Platelet Volume 8.7 fL (7.0-11.0); Mono # (Auto) 1.2 th/mm3 (0.0-0.9); Mono % (Auto) 14.1 % (0.0-8.0); Neut # (Auto) 6.5 th/mm3 (1.8-7.7); Neut % (Auto) 74.7 % (16.0-70.0); Platelet Count 52 th/mm3 (150-450); Red Blood Count 3.07 mil/mm3 (4.50-5.90); Red Cell Distribution Width 17.6 % (11.6-17.2); White Blood Count 8.7 th/mm3 (4.0-11.0)
[2018-09-28 07:30] LABS: Albumin 2.9 g/dL (3.4-5.0); Anion Gap 7 meq/L (5-15); Aspartate Aminotransferase 66 U/L (15-37); Blood Urea Nitrogen 41 mg/dL (7-18); Calcium 8.6 mg/dL (8.5-10.1); Carbon Dioxide 24.8 meq/L (21.0-32.0); Chloride 116 meq/L (98-107); Glomerular Filtration Rate 54 mL/min (>89); Glucose,Random 123 mg/dL (74-106); Potassium 3.8 meq/L (3.5-5.1); Sodium 148 meq/L (136-145)
[2018-09-28 07:31] LABS: Alanine Aminotransferase 50 U/L (12-78)
[2018-09-28 07:33] LABS: Alkaline Phosphatase 80 U/L (45-117); Total Protein 5.8 g/dL (6.4-8.2)
[2018-09-28 07:39] LABS: Platelet Morphology Normal (Normal)
[2018-09-28] MEDS: Pantoprazole Inj 40 MG Vial IV.PUSH SCH ×2 (08:55→21:18)
[2018-09-28] MEDS: Metoprolol Tartrate 25 MG Tablet PO SCH ×3 (08:55→17:55)
[2018-09-28] MEDS: Clotrimazole 1% Cream 15 GM Tube TOPICAL SCH ×2 (08:56→23:18)
[2018-09-28] MEDS: Senna/Docusate Sodium 8.6/50 MG Tablet PO SCH ×2 (08:56→21:18)
[2018-09-28] MEDS: Chlorhexidine 0.12% Oral Kit 15 ML UDC OROPHARYNG SCH ×2 (08:56→21:18)
--- NOTE | 2018-09-28 10:27 | P.PNNP ---
Subjective Interval history: Patient remains on ventilator Physical Exam Vital signs: Vital Signs 09/27/18 10:30 09/27/18 11:00 09/27/18 11:26 Temperature Pulse Rate 95 H 77 Respiratory Rate 24 19 21 Blood Pressure 185/100 H 126/74 Pulse Oximetry 97 96 09/27/18 11:30 09/27/18 12:00 09/27/18 14:00 Temperature 98.2 F Pulse Rate 78 72 72 Respiratory Rate 19 16 Blood Pressure 128/77 127/69 Pulse Oximetry 99 99 09/27/18 15:34 09/27/18 16:00 09/27/18 18:00 Temperature 98.1 F Pulse Rate 83 76 76 Respiratory Rate 18 17 Blood Pressure 133/75 Pulse Oximetry 99 09/27/18 19:00 09/27/18 19:30 09/27/18 20:00 Temperature 97.9 F Pulse Rate 79 81 79 Respiratory Rate 19 20 20 Blood Pressure 147/79 H 142/81 H 148/83 H Pulse Oximetry 95 95 95 09/27/18 20:19 09/27/18 20:21 09/27/18 20:30 Temperature Pulse Rate 81 80 Respiratory Rate 21 21 21 Blood Pressure 149/80 H Pulse Oximetry 97 96 09/27/18 21:00 09/27/18 21:30 09/27/18 22:00 Temperature Pulse Rate 84 81 79 Respiratory Rate 22 21 18 Blood Pressure 165/87 H 140/76 136/74 Pulse Oximetry 98 97 96 09/27/18 22:30 09/27/18 23:00 09/27/18 23:30 Temperature Pulse Rate 87 80 83 Respiratory Rate 23 18 19 Blood Pressure 164/97 H 136/76 155/78 H Pulse Oximetry 95 97 97 09/28/18 00:00 09/28/18 00:30 09/28/18 01:00 Temperature 98.0 F Pulse Rate 79 82 81 Respiratory Rate 19 24 21 Blood Pressure 133/70 136/73 146/75 H Pulse Oximetry 97 95 09/28/18 01:30 09/28/18 02:00 09/28/18 02:30 Temperature Pulse Rate 74 77 77 Respiratory Rate 18 20 21 Blood Pressure 144/75 H 157/76 H 143/89 H Pulse Oximetry 09/28/18 03:00 09/28/18 03:30 09/28/18 04:00 Temperature 97.8 F Pulse Rate 74 75 75 Respiratory Rate Blood Pressure 136/71 133/67 133/67 Pulse Oximetry 95 88 L 94 L 09/28/18 04:30 09/28/18 04:37 09/28/18 05:00 Temperature Pulse Rate 78 80 80 Respiratory Rate 19 Blood Pressure 147/72 H 143/74 H Pulse Oximetry 96 96 98 09/28/18 05:30 09/28/18 06:00 09/28/18 06:30 Temperature Pulse Rate 82 84 80 Respiratory Rate 22 22 20 Blood Pressure 161/79 H 141/74 H 134/62 Pulse Oximetry 98 09/28/18 08:00 09/28/18 08:30 09/28/18 10:00 Temperature Pulse Rate 85 81 82 Respiratory Rate 21 Blood Pressure Pulse Oximetry 100 Intake & Output 09/27/18 09/28/18 09/28/18 18:59 06:59 18:59 Intake Total 370 / 370 2270 / 2270 Output Total 650 / 650 500 / 500 Balance -280 / -280 1770 / 1770 Weight 91 kg Intake: IV 310 / 310 2150 / 2150 D5W/1/4 NS Inj 1,000 ML @ 100 2000 / 2000 mls/hr IV.CONT .Q10H [facility] Rx#: [id number] Flexbumin 25% Inj 50 ML @ 60 50 / 50 50 / 50 mls/hr IV.SIG Q12H [facility] Rx#: [id number] Potassium Phosphate Inj 30 MMOL 260 / 260 In NS Inj 250 ML @ 43.333 mls/ hr IV.SIG ONCE ONE Rx#:[id number] Rocephin Inj 1,000 MG In NS Inj 100 / 100 100 ML @ 200 mls/hr IV.SIG Q24H [facility] Rx#:[id number] Water Bolus Amount 60 / 60 120 / 120 Output: Urine 650 / 650 500 / 500 Other: # Incontinent Voids 1 2 Date of Last Bowel Movement 09/24/18 09/24/18 09/24/18 # Bowel Movements 0 Narrative: GENERAL: Orally intubated. SKIN: Warm and dry. NECK: Supple, trachea midline. No JVD CARDIOVASCULAR: Regular rate and rhythm without murmurs, gallops, or rubs. RESPIRATORY: Breath sounds equal bilaterally. No accessory muscle use. Orally intubated. GASTROINTESTINAL: Abdomen soft, non-tender, distended. OG tube GI: Indwelling Burn[place] catheter, clear yellow urine. MUSCULOSKELETAL: No cyanosis, generalized edema upper and lower extremity BACK: Nontender without obvious deformity. No CVA tenderness. - Urinary Catheter Management Indwelling Temp Sensing Catheter Cath placed during this visit: yes, but has since been removed by the nurse Urethral indwelling: Yes Reason for continuing: Hourly intake/output Insertion date: 09/21/18 Insertion time: 20:00 Removal date: 09/25/18 Removal time: 15:45 Assessment and Plan - Plan Patient with type II hepatorenal syndrome sodium less than 5, this syndrome impairment is less severe however patient has ascites and which is resistant to diuretics, Creatinine is better, now 1.2. Sodium 148 ammonia 43, INR 1.5 Continue Hydration. D5 one fourth of normal saline at 100 cc an hour, albumin every 12 hours Weaning as per CCM. Dr. Balbuena to follow
[2018-09-28] MEDS: Albumin Human 25% Inj 50 ML IV.SIG SCH ×2 (10:44→21:18)
--- NOTE | 2018-09-28 11:11 | P.PNGI ---
Subjective Interval history: Patient intubated Physical Exam Vital signs: Vital Signs 09/27/18 11:26 09/27/18 11:30 09/27/18 12:00 Temperature 98.2 F Pulse Rate 78 72 Respiratory Rate 21 19 16 Blood Pressure 128/77 127/69 Pulse Oximetry 99 99 09/27/18 14:00 09/27/18 15:34 09/27/18 16:00 Temperature 98.1 F Pulse Rate 72 83 76 Respiratory Rate 18 17 Blood Pressure 133/75 Pulse Oximetry 99 09/27/18 18:00 09/27/18 19:00 09/27/18 19:30 Temperature Pulse Rate 76 79 81 Respiratory Rate 19 20 Blood Pressure 147/79 H 142/81 H Pulse Oximetry 95 95 09/27/18 20:00 09/27/18 20:19 09/27/18 20:21 Temperature 97.9 F Pulse Rate 79 81 Respiratory Rate 20 21 21 Blood Pressure 148/83 H Pulse Oximetry 95 97 09/27/18 20:30 09/27/18 21:00 09/27/18 21:30 Temperature Pulse Rate 80 84 81 Respiratory Rate 21 22 21 Blood Pressure 149/80 H 165/87 H 140/76 Pulse Oximetry 96 98 97 09/27/18 22:00 09/27/18 22:30 09/27/18 23:00 Temperature Pulse Rate 79 87 80 Respiratory Rate 18 23 18 Blood Pressure 136/74 164/97 H 136/76 Pulse Oximetry 96 95 97 09/27/18 23:30 09/28/18 00:00 09/28/18 00:30 Temperature 98.0 F Pulse Rate 83 79 82 Respiratory Rate 19 19 24 Blood Pressure 155/78 H 133/70 136/73 Pulse Oximetry 97 97 95 09/28/18 01:00 09/28/18 01:30 09/28/18 02:00 Temperature Pulse Rate 81 74 77 Respiratory Rate 21 18 20 Blood Pressure 146/75 H 144/75 H 157/76 H Pulse Oximetry 09/28/18 02:30 09/28/18 03:00 09/28/18 03:30 Temperature Pulse Rate 77 74 75 Respiratory Rate 21 20 19 Blood Pressure 143/89 H 136/71 133/67 Pulse Oximetry 95 88 L 09/28/18 04:00 09/28/18 04:30 09/28/18 04:37 Temperature 97.8 F Pulse Rate 75 78 80 Respiratory Rate 19 19 22 Blood Pressure 133/67 147/72 H Pulse Oximetry 94 L 96 96 09/28/18 05:00 09/28/18 05:30 09/28/18 06:00 Temperature Pulse Rate 80 82 84 Respiratory Rate 22 22 22 Blood Pressure 143/74 H 161/79 H 141/74 H Pulse Oximetry 98 98 09/28/18 06:30 09/28/18 08:00 09/28/18 08:30 Temperature Pulse Rate 80 85 81 Respiratory Rate 20 21 Blood Pressure 134/62 Pulse Oximetry 100 09/28/18 10:00 Temperature Pulse Rate 82 Respiratory Rate Blood Pressure Pulse Oximetry Intake & Output 09/27/18 09/28/18 09/28/18 18:59 06:59 18:59 Intake Total 370 / 370 2270 / 2270 Output Total 650 / 650 500 / 500 Balance -280 / -280 1770 / 1770 Weight 91 kg Intake: IV 310 / 310 2150 / 2150 D5W/1/4 NS Inj 1,000 ML @ 100 2000 / 2000 mls/hr IV.CONT .Q10H [facility] Rx#: [id number] Flexbumin 25% Inj 50 ML @ 60 50 / 50 50 / 50 mls/hr IV.SIG Q12H [facility] Rx#: [id number] Potassium Phosphate Inj 30 MMOL 260 / 260 In NS Inj 250 ML @ 43.333 mls/ hr IV.SIG ONCE ONE Rx#:[id number] Rocephin Inj 1,000 MG In NS Inj 100 / 100 100 ML @ 200 mls/hr IV.SIG Q24H [facility] Rx#:[id number] Water Bolus Amount 60 / 60 120 / 120 Output: Urine 650 / 650 500 / 500 Other: # Incontinent Voids 1 2 Date of Last Bowel Movement 09/24/18 09/24/18 09/24/18 # Bowel Movements 0 - Constitutional no acute distress, cachectic, chronically ill appearing - Routine HEENT Exam Head: Present: normocephalic ENT: Present: mucous membranes dry - Routine Neck Exam Present: supple - Routine Respiratory Exam Present: patient mechanically ventilated, CTA bilaterally - Routine Cardiovascular Exam Present: RRR - Routine Abdominal Exam Present: soft, distended (Tympanic). Absent: tenderness, rebound - Routine Extremities Exam Absent: cyanosis, clubbing - Urinary Catheter Management Indwelling Temp Sensing Catheter Cath placed during this visit: yes, but has since been removed by the nurse Urethral indwelling: Yes Reason for continuing: Hourly intake/output Insertion date: 09/21/18 Insertion time: 20:00 Removal date: 09/25/18 Removal time: 15:45 Results - Labs CBC & Chem 7: 09/28/18 06:40 09/28/18 06:40 Laboratory Results - last 24 hr 09/27/18 09/27/18 09/27/18 11:20 13:09 17:53 WBC RBC Hgb Hct MCV MCH MCHC RDW Plt Count MPV Prelim Diff (Auto) Neut % (Auto) Lymph % (Auto) [place] % (Auto) Eos % (Auto) Baso % (Auto) Neut # (Auto) Lymph # (Auto) [place] # (Auto) Eos # (Auto) Baso # (Auto) WBC Differential Diff Scan Differential Comment Platelet Estimate Platelet Morphology Keratocytes Sodium Potassium Chloride Carbon Dioxide Anion Gap BUN Creatinine Estimated GFR POC Glucose 136 H 136 H 129 H Random Glucose Calcium Phosphorus Magnesium Total Bilirubin AST ALT Alkaline Phosphatase Ammonia Total Protein Albumin Tumor Marker AFP 09/27/18 09/28/18 09/28/18 21:30 00:17 06:00 WBC RBC Hgb Hct MCV MCH MCHC RDW Plt Count MPV Prelim Diff (Auto) Neut % (Auto) Lymph % (Auto) [place] % (Auto) Eos % (Auto) Baso % (Auto) Neut # (Auto) Lymph # (Auto) [place] # (Auto) Eos # (Auto) Baso # (Auto) WBC Differential Diff Scan Differential Comment Platelet Estimate Platelet Morphology Keratocytes Sodium 148 H Potassium 3.9 Chloride 115 H Carbon Dioxide 24.5 Anion Gap 9 BUN 40 H Creatinine 1.27 Estimated GFR 55 L POC Glucose 135 H 125 H Random Glucose 120 H Calcium 8.7 D Phosphorus 2.9 Magnesium 2.2 Total Bilirubin 2.1 H AST 72 H ALT 47 Alkaline Phosphatase 75 Ammonia Total Protein 5.6 L Albumin 2.8 L Tumor Marker AFP 4.3 09/28/18 09/28/18 09/28/18 06:40 06:40 06:40 WBC 8.7 RBC 3.07 L Hgb 8.8 L Hct 26.3 L MCV 85.7 MCH 28.7 MCHC 33.5 RDW 17.6 H Plt Count 52 L MPV 8.7 Prelim Diff (Auto) Slide review pending Neut % (Auto) 74.7 H Lymph % (Auto) 7.4 L [place] % (Auto) 14.1 H Eos % (Auto) 3.5 Baso % (Auto) 0.3 Neut # (Auto) 6.5 Lymph # (Auto) 0.6 L [place] # (Auto) 1.2 H Eos # (Auto) 0.3 Baso # (Auto) 0.0 WBC Differential . Diff Scan Auto diff confirmed Differential Comment . Platelet Estimate Low L Platelet Morphology Normal Keratocytes Occ H Sodium 148 H Potassium 3.8 Chloride 116 H Carbon Dioxide 24.8 Anion Gap 7 BUN 41 H Creatinine 1.29 Estimated GFR 54 L POC Glucose Random Glucose 123 H Calcium 8.6 Phosphorus Magnesium Total Bilirubin 2.1 H AST 66 H ALT 50 Alkaline Phosphatase 80 Ammonia 43 H Total Protein 5.8 L Albumin 2.9 L Tumor Marker AFP Assessment and Plan (1) Hematemesis Status: Deleted Code(s): K92.0 - Hematemesis (2) Cirrhosis Status: Deleted Code(s): K74.60 - Unspecified cirrhosis of liver (3) Hx of hepatitis C Status: Deleted Code(s): Z86.19 - Personal history of other infectious and parasitic diseases (4) Thrombocytopenia Status: Deleted Code(s): D69.6 - Thrombocytopenia, unspecified (5) Tinea corporis Status: Acute Code(s): B35.4 - Tinea corporis (6) Hepatocellular carcinoma Status: Acute Code(s): C22.0 - Liver cell carcinoma - Plan 09/22/2018 EGD due to melena Hematemesis and history of cirrhosis 09/21/2018 EGD with band ligation of varices : 1. Large blood clot/blood in the fundus. Antrum normal 2. Blood in duodenum 3. Retroflexed views revealed large blood clot -Total bili 1.1 AST 40 ALT 34 alk phos 68 ammonia 43 hemoglobin 8.2 -No noted bleeding per nursing 09/23/2018 Post EGD 09/21/2018 showing large blood clots in the fundus antrum was normal there was blood in the duodenal retroflexed views revealed large blood clot recommendations for FFP platelets IV octreotide and Protonix. 09/24/2018 Liver cirrhosis with hematemesis -patient had a EGD showing large clots in the fundus of the antrum on 09/21/2018 Patient is currently intubated with Protonix IV push twice daily, octreotide discontinued this morning Hepatitis C Tinea corporis under chest Chronic kidney insufficiency Hyper ammonia 109 doubled from yesterday's level Total CK is elevated at 1370 Hemoglobin 7.6 hematocrit 22.1 platelets 48 BUN 64 creatinine 1.94 09/25/2018 Liver cirrhosis-post EGD on 09/21/2018 revealing large clots in the fundus of the antrum. Patient currently receiving IV Protonix twice daily Hemoglobin 7.7 hematocrit 22.2 stable, to begin Xifaxan, lactulose and nadolol Hepatitis C CKI Hyper ammonia-84--NG tube placement for administration of lactulose Xifaxan and nadolol 09/26/2018 Liver cirrhosis with ascites status post EGD on 09/21/2018 revealing large clots in the fundus of the antrum History of hepatitis C hepatocellular carcinoma status post TACE procedure Hyper ammonia Hemoglobin 9.4 hematocrit 27.3 platelet 56 INR 1.5 Ammonia today is 91 total bilirubin 1.8 09/28/18 Plan -Monitor for active bleeding -Monitor labs -December 04 blood transfusion to keep hemoglobin between 7-8 -Protonix 40 mg IV twice daily -Avoid hepatotoxins -Avoid anticoagulants -Supportive care -We will obtain KUB, case discussed with Dr Gutierrez -Further recommendations to follow Prognosis poor (1) Hematemesis Qualifiers: Nausea presence: unspecified Qualified Code(s): K92.0 - Hematemesis (2) Cirrhosis Qualifiers: Ascites presence: unspecified
[2018-09-28] MEDS ORDERED: Potassium Chloride 25 MEQ Effervescent Tablet PO ONE (11:20)
--- NOTE | 2018-09-28 11:26 | P.PNCC ---
Subjective Subjective Remarks/Hospital Course: 09/22: Overnight the patient underwent EGD 5 columns of esophageal varices was located but no bleeding was noted per large blood clot was noted in the fundus and the duodenum 0 hemoglobin and hematocrits continue last hemoglobin noted to be 7.9. The patient continues on Protonix and octreotide infusions currently. Patient was noted to have a low normal blood pressure on propofol infusion this is been discontinued. Versed and fentanyl infusions initiated to maintain ventilator synchrony. Patient noted to have acute kidney injury creatinine downtrending slightly peer nephrology has been consulted appreciate recommendations per patient with known ascites last known paracentesis approximately 4 months ago peer INR within normal limits invasive radiology has been consulted for possible paracentesis. 09/23: The patient underwent CT-guided paracentesis yesterday 5.2 L removed the patient's FiO2 requirements continue to decrease PEEP has been decreased down to 5 FiO2 of 40%. Urine output 770 cc in 24hr. Lactulose enemas have been added to medication regimen twice daily secondary to hyperammonemia. 09/24: Afebrile. Continues with low urine output. Ventilator settings stable. Went to A. fib with RVR. Laboratories pending. EKG pending. On fentanyl drip sedation 100 mcg an hour. 09/25: NG tube placed today. Remains on the ventilator. Withdraws to pain. Positive cough and gag. Ammonia level down to 84. 09/26: Currently resting in bed in no acute distress. Minimally responsive on the ventilator off all sedation. MRI of the brain currently pending. Ammonia level is currently 91. 09/27: Afebrile. More awake today. MRI brain revealed no acute findings. Currently on CPAP trial. SUBJECTIVE: 09/28: Decompressed stomach this a.m. Appears comfortable and tolerating CPAP trials. We will give 1 dose of furosemide attempt extubate today if minimal ascites evaluated. Objective Vital Signs / I&O: Vital Signs 09/27/18 11:26 09/27/18 11:30 09/27/18 12:00 Temperature 98.2 F Pulse Rate 78 72 Respiratory Rate 21 19 16 Blood Pressure 128/77 127/69 Pulse Oximetry 99 99 09/27/18 14:00 09/27/18 15:34 09/27/18 16:00 Temperature 98.1 F Pulse Rate 72 83 76 Respiratory Rate 18 17 Blood Pressure 133/75 Pulse Oximetry 99 09/27/18 18:00 09/27/18 19:00 09/27/18 19:30 Temperature Pulse Rate 76 79 81 Respiratory Rate 19 20 Blood Pressure 147/79 H 142/81 H Pulse Oximetry 95 95 09/27/18 20:00 09/27/18 20:19 09/27/18 20:21 Temperature 97.9 F Pulse Rate 79 81 Respiratory Rate 20 21 21 Blood Pressure 148/83 H Pulse Oximetry 95 97 09/27/18 20:30 09/27/18 21:00 09/27/18 21:30 Temperature Pulse Rate 80 84 81 Respiratory Rate 21 22 21 Blood Pressure 149/80 H 165/87 H 140/76 Pulse Oximetry 96 98 97 09/27/18 22:00 09/27/18 22:30 09/27/18 23:00 Temperature Pulse Rate 79 87 80 Respiratory Rate 18 23 18 Blood Pressure 136/74 164/97 H 136/76 Pulse Oximetry 96 95 97 09/27/18 23:30 09/28/18 00:00 09/28/18 00:30 Temperature 98.0 F Pulse Rate 83 79 82 Respiratory Rate 19 19 24 Blood Pressure 155/78 H 133/70 136/73 Pulse Oximetry 97 97 95 09/28/18 01:00 09/28/18 01:30 09/28/18 02:00 Temperature Pulse Rate 81 74 77 Respiratory Rate 21 18 20 Blood Pressure 146/75 H 144/75 H 157/76 H Pulse Oximetry 09/28/18 02:30 09/28/18 03:00 09/28/18 03:30 Temperature Pulse Rate 77 74 75 Respiratory Rate 21 20 19 Blood Pressure 143/89 H 136/71 133/67 Pulse Oximetry 95 88 L 09/28/18 04:00 09/28/18 04:30 09/28/18 04:37 Temperature 97.8 F Pulse Rate 75 78 80 Respiratory Rate 19 19 22 Blood Pressure 133/67 147/72 H Pulse Oximetry 94 L 96 96 09/28/18 05:00 09/28/18 05:30 09/28/18 06:00 Temperature Pulse Rate 80 82 84 Respiratory Rate 22 22 22 Blood Pressure 143/74 H 161/79 H 141/74 H Pulse Oximetry 98 98 09/28/18 06:30 09/28/18 08:00 09/28/18 08:30 Temperature Pulse Rate 80 85 81 Respiratory Rate 20 21 Blood Pressure 134/62 Pulse Oximetry 100 09/28/18 10:00 Temperature Pulse Rate 82 Respiratory Rate Blood Pressure Pulse Oximetry Intake & Output 09/27/18 09/28/18 09/28/18 18:59 06:59 18:59 Intake Total 370 / 370 2270 / 2270 Output Total 650 / 650 500 / 500 Balance -280 / -280 1770 / 1770 Weight 91 kg Intake: IV 310 / 310 2150 / 2150 D5W/1/4 NS Inj 1,000 ML @ 100 2000 / 2000 mls/hr IV.CONT .Q10H [facility] Rx#: [id number] Flexbumin 25% Inj 50 ML @ 60 50 / 50 50 / 50 mls/hr IV.SIG Q12H [facility] Rx#: [id number] Potassium Phosphate Inj 30 MMOL 260 / 260 In NS Inj 250 ML @ 43.333 mls/ hr IV.SIG ONCE ONE Rx#:[id number] Rocephin Inj 1,000 MG In NS Inj 100 / 100 100 ML @ 200 mls/hr IV.SIG Q24H [facility] Rx#:[id number] Water Bolus Amount 60 / 60 120 / 120 Output: Urine 650 / 650 500 / 500 Other: # Incontinent Voids 1 2 Date of Last Bowel Movement 09/24/18 09/24/18 09/24/18 # Bowel Movements 0 Result Diagrams: 09/28/18 06:40 09/28/18 06:40 Other Results: Microbiology 09/23/18 20:30 Sputum - Endotracheal Gram Stain - Final 09/23/18 20:30 Sputum - Endotracheal Sputum Culture - Final Heavy growth normal respiratory kristel Imaging: Chest X-Ray 09/21/18 21:44 CONCLUSION: Endotracheal tube in good position. Bibasal airspace disease. No prior study for comparison. Paracentesis CT 09/22/18 14:08 CONCLUSION: 1. Uncomplicated CT Guided paracentesis. Abdomen/Bladder Ultrasound 09/23/18 00:00 CONCLUSION: 1. Echogenic kidneys consistent with medical renal disease. 2. Cirrhotic liver with ascites. 3. Small right pleural effusion, likely hepatic hydrothorax. Chest X-Ray 09/24/18 04:00 CONCLUSION: 1. Stable elevation of the right hemidiaphragm. Mild atelectatic changes in the right lung base. 2. Stable position of endotracheal tube. Head MRI 09/26/18 00:00 CONCLUSION: 1. Negative for acute process. Chest X-Ray 09/26/18 06:00 CONCLUSION: Clear lungs. Chest X-Ray 09/27/18 06:00 CONCLUSION: Clear lungs. Objective Remarks: GENERAL: This is a well-developed well-nourished chronically ill-appearing, currently intubated in no acute distress SKIN: Warm and dry. Ecchymosis noted bilateral forearm HEAD: Atraumatic. Normocephalic. EYES: Pupils equal and round. No scleral icterus. No injection or drainage. ENT: No nasal bleeding or discharge. Mucous membranes pink and moist. NECK: Trachea midline. No JVD. CARDIOVASCULAR: IRR. S1, S2. No S4. No murmur RESPIRATORY: No accessory muscle use. Clear to auscultation. Breath sounds equal bilaterally. GASTROINTESTINAL: Abdomen less distended this a.m. Umbilical hernia noted reducible, no guarding. Resolving abdominal rash with multiple pinpoint lesions back and legs MUSCULOSKELETAL: Extremities without clubbing, cyanosis, or edema. No obvious deformities. Noted 1+ bilateral pedal edema NEUROLOGICAL: Cranial nerves II through XII grossly intact. Positive cough and gag. Moves all 4 extremities spontaneously. Procedures: 09/21- EGD 09/22-CT guided paracentesis 2.5 L removed Assessment and Plan - Assessment and Plan Plan: NEURO/PSYCH: History of stroke with residual aphasia Midazolam and fentanyl infusions to maintain ventilator synchrony Goal of RASS -2. Daily sedation vacation MRI brain 09/26 without acute intracranial findings RESP: Acute respiratory failure PRVCD 15/5 100/1.05/5/40 Currently on CPAP trial 05/09 at 40% Ventilator bundle Albuterol/ipratropium aerosols every 6 hours with albuterol aerosols every 2 hours as needed dyspnea To remain intubated for airway protection while observing for ongoing UGI bleeding. CXR clear with satisfactory ETT position. Spontaneous breathing trials when clinically indicated CV: Essential hypertension Atrial fibrillation currently normal sinus rhythm On amlodipine unknown dosage at home. Will hold. D5 LR 125 ml/hr while tube feeding currently on hold. Switch to D5 one quarter normal saline at 100 cc an hour while n.p.o. Currently not requiring vasopressors. Holding chlorthalidone 5 mg daily. Metoprolol tartrate 12.5 3 times daily and as needed labetalol/Nitropaste for hypertension GI: Upper GI bleed secondary to esophageal varices now s/p banding Hx Hep C Cirrhosis Hepatocellular carcinoma s/p TACE procedure Recurrent ascites Hyperammonemia Hypoalbuminemia 09/25 placed NG/OG tube for gastroenterology okay for meds. If not extubated today we will initiate tube feeding Currently on pantoprazole 40 mg IV twice daily Octreotide drip previously 25 mcg an hour discontinued 09/25. Serial hemoglobin and hematocrit last document stable around 8 09/21 GI consulted emergently, Dr. Beverly. Esophageal varices banded. Reportedly no active bleeding but unable to rule out gastric varices due to presence of clots in the stomach. 09/22paracentesis 5.2 L removed Lactulose enemas twice daily switch to Xifaxan 550 twice daily and lactulose 30 cc 4 times daily.. Recheck ammonia level in a.m. 09/28 is down to 43. Patient is on scheduled lactulose 30 cc 3 times daily at home. FEN/RENAL: ?MART (unknown baseline creatinine) Oliguria Hypernatremia Burnett in place. Monitor I/O. Monitor electrolytes and replace as indicated per ICU electrolyte replacement protocol. IVF as per above. Albumin 12.5 twice daily can be discontinued Nephrology following Patient is on scheduled potassium chloride 20 mEq twice daily at home ID: Tinea corporis Ceftriaxone for SBP prophylaxis. Clotrimazole 1% cream bid. Patient was on a prednisone taper and triamcinolone acetate 0.1% and Vanicream topical daily to affected areas twice daily at home. Sputum culture no growth to date Previously on doxycycline hyclate 100 mg twice daily with food HEME: Acute blood loss anemia/normocytic Thrombocytopenia Coagulopathy with elevated INR Transfuse 3 units PRBCs, 1 unit FFP and 1 unit of platelets since admission Monitor CBC daily. Follow trends. INR has been CBC has been stable ENDO: Sliding scale insulin aspart insulin/low regimen to maintain euglycemia every 6 hours TSH 0.163. Total T3 is low. Free T3 was/low normal. PROPH: SCDs for DVT prophylaxis. Pharmacologic DVT prophylaxis is contraindicated. Pantoprazole 40 mg IV twice daily ACCESS: [address] Level 3 follow-up
--- NOTE | 2018-09-28 11:55 | XR ---
EXAM DATE: 09/28/2018 11:33 AM EST AGE/SEX: 78 years / Male INDICATIONS: Constipation. CLINICAL DATA: This is the patient's initial encounter. Patient reports that signs and symptoms have been present for 1 day and indicates a pain score of Nonresponsive. MEDICAL/SURGICAL HISTORY: . Anemia. Cirrhosis. Hepatitis C. Appendectomy. . COMPARISON: No prior exams available for comparison. FINDINGS: Nasogastric tube is across the GE junction with persistent gaseous distention of stomach. Some small bowel gas is evident Moderate elevation the right hemidiaphragm. CONCLUSION: Nasogastric tube across the GE junction. There is persistent gaseous distention in spite of such. Cli nical correlation suggested. Electronically signed by: Jaguar Coffey MD Board Certified Radiologist 09/28/2018 11:54 AM EST
--- NOTE | 2018-09-28 13:46 | P.PCN ---
Date of procedure: 09/28/18 Pre-op diagnosis: Abdominal ascites Post-op diagnosis: same Procedure: Date of procedure: [] Procedure: paracentesis, ultrasound-guided Indication: Abdominal ascites Operators: Chano Gutierrez M.D. Details of procedure: Informed consent was obtained. The patient was laid supine. Ascites was localized with ultrasound device. The left lower quadrant was cleaned with ChloraPrep twice. Regional sterile drapes were applied. Other barrier precautions included sterile gloves and face mask. 1% lidocaine was used for local anesthesia. A skin incision was made with a scalpel blade. Stanton-Nagy Pleura-Seal Thoracentesis Kit was used. An 8 Fr Catheter over 18 gauge introducer needle was inserted into the peritoneal space with return of clear yellow fluid. The needle was removed. Approximately 4200 mL of fluid was removed and sent for analysis and cultures. The catheter was removed and hemostasis was achieved by direct pressure. The site was cleansed with an alcohol swab and a Band-Aid was applied. Estimated blood loss: Minimal Complications: None immediately apparent.
[2018-09-28 14:52] LABS: Total Protein 6.3 g/dL (6.4-8.2)
[2018-09-28 16:38] LABS: Mesothelial,Peritoneal Fluid 1 %; Neutrophils,Peritoneal Fluid 18 %; RBC,Peritoneal Fluid 159 /mm3 (0-0)
[2018-09-28] MEDS ORDERED: Magnesium Citrate Liq 300 ML Bottle PO ONE (16:46)
[2018-09-28] MEDS ORDERED: Mineral Oil Liq 30 ML UDC PO ONE (16:47)
[2018-09-28 16:51] LABS: Total Protein,Peritoneal Fluid 0.3 gm/dL
[2018-09-29] MEDS: Insulin NovoLOG Aspart Correctional Sugar Inj SQ SCH ×5 (00:45→23:37)
[2018-09-29] MEDS: Oral Hygiene Kit OROPHARYNG SCH ×4 (00:46→16:30)
[2018-09-29] MEDS: Artificial Tears Opth Drops 15 ML Bottle EACH EYE SCH ×3 (00:46→17:28)
[2018-09-29] MEDS: rifAXIMin 550 MG Tablet PO SCH ×2 (04:09→17:27)
--- NOTE | 2018-09-29 06:16 | XR ---
EXAM DATE: 09/29/2018 5:46 AM EST AGE/SEX: 78 years / Male INDICATIONS: Shortness of breath. CLINICAL DATA: This is the patient's subsequent encounter. Patient reports that signs and symptoms h ave been present for 1 week and indicates a pain score of Nonresponsive. MEDICAL/SURGICAL HISTORY: . Anemia. Cirrhosis. Hepatitis C. Renal failure. Stroke. Carcinoma, l iver. Appendectomy. COMPARISON: [facility] [place], CHEST 1V SINGLE AP, 09/27/2018. . FINDINGS: A single AP view of the chest demonstrates diminished lung volumes with elevated right hemidiaphragm. Bibasilar densities likely atelectasis The cardiomediastinal contours are unremarkable. Osseous str uctures are intact. CONCLUSION: Diminished lung volumes with probable bibasilar atelectasis Electronically signed by: Pardeep Ledbetter MD Board Certified Radiologist 09/29/2018 6:14 AM EST
--- NOTE | 2018-09-29 07:15 | P.PNCC ---
Subjective Subjective Remarks/Hospital Course: 09/22: Overnight the patient underwent EGD 5 columns of esophageal varices was located but no bleeding was noted per large blood clot was noted in the fundus and the duodenum 0 hemoglobin and hematocrits continue last hemoglobin noted to be 7.9. The patient continues on Protonix and octreotide infusions currently. Patient was noted to have a low normal blood pressure on propofol infusion this is been discontinued. Versed and fentanyl infusions initiated to maintain ventilator synchrony. Patient noted to have acute kidney injury creatinine downtrending slightly peer nephrology has been consulted appreciate recommendations per patient with known ascites last known paracentesis approximately 4 months ago peer INR within normal limits invasive radiology has been consulted for possible paracentesis. 09/23: The patient underwent CT-guided paracentesis yesterday 5.2 L removed the patient's FiO2 requirements continue to decrease PEEP has been decreased down to 5 FiO2 of 40%. Urine output 770 cc in 24hr. Lactulose enemas have been added to medication regimen twice daily secondary to hyperammonemia. 09/24: Afebrile. Continues with low urine output. Ventilator settings stable. Went to A. fib with RVR. Laboratories pending. EKG pending. On fentanyl drip sedation 100 mcg an hour. 09/25: NG tube placed today. Remains on the ventilator. Withdraws to pain. Positive cough and gag. Ammonia level down to 84. 09/26: Currently resting in bed in no acute distress. Minimally responsive on the ventilator off all sedation. MRI of the brain currently pending. Ammonia level is currently 91. 09/27: Afebrile. More awake today. MRI brain revealed no acute findings. Currently on CPAP trial. SUBJECTIVE: 09/28: Decompressed stomach this a.m. Appears comfortable and tolerating CPAP trials. We will give 1 dose of furosemide attempt extubate today if minimal ascites evaluated. 09/29 Patient was extubated yesterday pulled his NGT and PIV overnight. Afebrile. s/p Paracentesis with removal 4L. Afebrile. Objective Vital Signs / I&O: Vital Signs 09/28/18 08:00 09/28/18 08:30 09/28/18 10:00 Temperature 98.0 F Pulse Rate 82 81 82 Respiratory Rate 17 21 Blood Pressure 152/74 H Pulse Oximetry 100 100 09/28/18 11:37 09/28/18 12:00 09/28/18 14:00 Temperature 98.2 F Pulse Rate 79 82 Respiratory Rate 17 17 Blood Pressure 132/66 Pulse Oximetry 100 97 09/28/18 15:40 09/28/18 16:00 09/28/18 18:00 Temperature 98.0 F Pulse Rate 86 86 92 H Respiratory Rate 20 20 Blood Pressure 117/66 Pulse Oximetry 94 L 09/28/18 20:00 09/28/18 21:45 09/28/18 22:00 Temperature 98.4 F Pulse Rate 80 80 80 Respiratory Rate 18 16 Blood Pressure 120/58 L Pulse Oximetry 97 96 09/29/18 00:00 09/29/18 02:00 09/29/18 04:00 Temperature 98.2 F 98.8 F Pulse Rate 81 85 84 Respiratory Rate 16 22 Blood Pressure 99/57 L 115/64 Pulse Oximetry 96 94 L 09/29/18 04:08 09/29/18 06:00 Temperature Pulse Rate 84 92 H Respiratory Rate 16 Blood Pressure Pulse Oximetry Intake & Output 09/28/18 09/29/18 09/29/18 18:59 06:59 18:59 Intake Total 50 / 50 150 / 150 Output Total 1000 / 1000 300 / 300 Balance -950 / -950 -150 / -150 Weight 89.2 kg Intake: IV 50 / 50 150 / 150 Flexbumin 25% Inj 50 ML @ 60 50 / 50 50 / 50 mls/hr IV.SIG Q12H [facility] Rx#: [id number] Rocephin Inj 1,000 MG In NS Inj 100 / 100 100 ML @ 200 mls/hr IV.SIG Q24H [facility] Rx#:[id number] Output: Gastric Drainage 1000 / 1000 300 / 300 Right Nare 1000 / 1000 300 / 300 Other: # Voids 6 # Incontinent Voids 4 Date of Last Bowel Movement 09/24/18 09/29/18 # Bowel Movements 1 # Incontinent Bowel Movements 1 Result Diagrams: 09/29/18 06:57 09/29/18 06:57 Other Results: Laboratory Results - last 12 hr 09/29/18 09/29/18 00:04 06:20 POC Glucose 110 95 Imaging: Paracentesis CT 09/22/18 14:08 CONCLUSION: 1. Uncomplicated CT Guided paracentesis. Abdomen/Bladder Ultrasound 09/23/18 00:00 CONCLUSION: 1. Echogenic kidneys consistent with medical renal disease. 2. Cirrhotic liver with ascites. 3. Small right pleural effusion, likely hepatic hydrothorax. Head MRI 09/26/18 00:00 CONCLUSION: 1. Negative for acute process. Abdomen X-Ray 09/28/18 10:46 CONCLUSION: Nasogastric tube across the GE junction. There is persistent gaseous distention in spite of such. Clinical correlation suggested. Chest X-Ray 09/29/18 06:00 CONCLUSION: Diminished lung volumes with probable bibasilar atelectasis Objective Remarks: GENERAL: This is a well-developed well-nourished chronically ill-appearing lying in bed in [facility] SKIN: Warm and dry. Ecchymosis noted bilateral forearm HEAD: Atraumatic. Normocephalic. EYES: Pupils equal and round. No scleral icterus. No injection or drainage. ENT: No nasal bleeding or discharge. Mucous membranes pink and moist. NECK: Trachea midline. No JVD. CARDIOVASCULAR: RRR. S1, S2. No S4. No murmur RESPIRATORY: No accessory muscle use. Clear to auscultation. Breath sounds equal bilaterally. GASTROINTESTINAL: Soft, non tender, mildly distended, + BS. MUSCULOSKELETAL: Extremities without clubbing, cyanosis, or edema. No obvious deformities. Noted 1+ bilateral pedal edema NEUROLOGICAL: Cranial nerves II through XII grossly intact. Procedures: 09/21- EGD 09/22-CT guided paracentesis 2.5 L removed Assessment and Plan - Assessment and Plan Plan: NEURO/PSYCH: History of stroke with residual aphasia Monitor neuro status and avoid sedatives. MRI brain 09/26 without acute intracranial findings RESP: Acute respiratory failure Extubated 09/28 Continue with oxygen keep sats >92% Albuterol/ipratropium aerosols every 6 hours with albuterol aerosols every 2 hours as needed dyspnea Incentive spirometry CV: Essential hypertension Atrial fibrillation currently normal sinus rhythm Monitor HR and BP keep MAP>65mmHg Metoprolol tartrate 12.5mg TID and as needed labetalol/Nitropaste for hypertension GI: Upper GI bleed secondary to esophageal varices now s/p banding Hx Hep C Cirrhosis Hepatocellular carcinoma s/p TACE procedure Recurrent ascites Hyperammonemia Hypoalbuminemia Speech eval, diet per speech Currently on pantoprazole 40 mg IV twice daily Octreotide drip previously 25 mcg an hour discontinued 09/25. 09/21 GI consulted emergently, Dr. Beverly. Esophageal varices banded. Reportedly no active bleeding but unable to rule out gastric varices due to presence of clots in the stomach. 09/28- Paracentesis with removal 4.2L. 09/22paracentesis 5.2 L removed Lactulose enemas twice daily switch to Xifaxan 550 twice daily and lactulose 30 cc 4 times daily. Ammonia level 43 09/28 FEN/RENAL: ?MART (unknown baseline creatinine) Oliguria Hypernatremia Monitor renal function, I/O's, electrolytes replacement per protocol. Change IVF D5W@50ml/hr Nephrology following. On Lasix 40mg daily, Albumin 25gms Q12 ID: Tinea corporis Ceftriaxone for SBP prophylaxis. Sputum culture no growth to date HEME: Acute blood loss anemia/normocytic Thrombocytopenia Coagulopathy with elevated INR Transfuse 3 units PRBCs, 1 unit FFP and 1 unit of platelets since admission Monitor CBC daily. Follow trends. ENDO: Sliding scale insulin aspart insulin/low regimen to maintain euglycemia every 6 hours TSH 0.163. Total T3 is low. Free T3 was/low normal. PROPH: SCDs for DVT prophylaxis. Pharmacologic DVT prophylaxis is contraindicated. Pantoprazole 40 mg IV twice daily ACCESS: Pulled his PIV overnight. Consult vascular acces for PIV placement.
[2018-09-29 07:44] LABS: Baso % (Auto) 0.4 % (0.0-2.0); Eos # (Auto) 0.4 th/mm3 (0.0-0.4); Eos % (Auto) 5.1 % (0.0-4.0); Hematocrit 25.1 % (39.0-51.0); Hemoglobin 8.5 gm/dL (13.0-17.0); Lymph # (Auto) 0.5 th/mm3 (1.0-4.8); Lymph % (Auto) 7.3 % (9.0-44.0); Mean Corpuscular HGB Conc 33.9 % (32.0-36.0); Mean Corpuscular Hemoglobin 29.5 pg (27.0-34.0); Mean Platelet Volume 9.5 fL (7.0-11.0); Mono # (Auto) 0.8 th/mm3 (0.0-0.9); Neut # (Auto) 5.3 th/mm3 (1.8-7.7); Neut % (Auto) 75.2 % (16.0-70.0); Platelet Count 51 th/mm3 (150-450); Red Blood Count 2.89 mil/mm3 (4.50-5.90); Red Cell Distribution Width 17.9 % (11.6-17.2); White Blood Count 7.1 th/mm3 (4.0-11.0)
[2018-09-29 08:14] LABS: Albumin 2.9 g/dL (3.4-5.0); Anion Gap 8 meq/L (5-15); Aspartate Aminotransferase 75 U/L (15-37); Blood Urea Nitrogen 46 mg/dL (7-18); Calcium 8.5 mg/dL (8.5-10.1); Carbon Dioxide 25.6 meq/L (21.0-32.0); Chloride 116 meq/L (98-107); Glomerular Filtration Rate 43 mL/min (>89); Glucose,Random 91 mg/dL (74-106); Magnesium 2.3 mg/dL (1.5-2.5); Potassium 3.6 meq/L (3.5-5.1); Sodium 150 meq/L (136-145)
[2018-09-29 08:19] LABS: Alanine Aminotransferase 50 U/L (12-78); Alkaline Phosphatase 93 U/L (45-117); Phosphorus 2.5 mg/dL (2.5-4.9); Total Protein 5.5 g/dL (6.4-8.2)
[2018-09-29 08:33] LABS: Acanthocytes 1+; Dimorphic RBC Present; Ovalocytes 1+
[2018-09-29] MEDS: Metoprolol Tartrate 25 MG Tablet PO SCH ×3 (09:15→18:29)
[2018-09-29] MEDS: Pantoprazole Inj 40 MG Vial IV.PUSH SCH ×2 (09:15→20:53)
[2018-09-29] MEDS: Senna/Docusate Sodium 8.6/50 MG Tablet PO SCH ×2 (09:17→20:54)
[2018-09-29] MEDS: Albumin Human 25% Inj 50 ML IV.SIG SCH ×2 (09:32→21:01)
[2018-09-29] MEDS: Clotrimazole 1% Cream 15 GM Tube TOPICAL SCH ×2 (09:57→21:19)
[2018-09-29] MEDS: Dextrose 5% in Water Inj 1,000 ML IV.CONT SCH (09:58)
[2018-09-29] MEDS: Chlorhexidine 0.12% Oral Kit 15 ML UDC OROPHARYNG SCH ×2 (10:04→21:18)
--- NOTE | 2018-09-29 12:58 | P.PNGI ---
Subjective Interval history: Patient awake and alert Completed swallow study Tolerating diet Able to take medications p.o. Physical Exam Vital signs: Vital Signs 09/28/18 14:00 09/28/18 15:40 09/28/18 16:00 Temperature 98.0 F Pulse Rate 82 86 86 Respiratory Rate 20 20 Blood Pressure 117/66 Pulse Oximetry 94 L 09/28/18 18:00 09/28/18 20:00 09/28/18 21:45 Temperature 98.4 F Pulse Rate 92 H 80 80 Respiratory Rate 18 16 Blood Pressure 120/58 L Pulse Oximetry 97 96 09/28/18 22:00 09/29/18 00:00 09/29/18 02:00 Temperature 98.2 F Pulse Rate 80 81 85 Respiratory Rate 16 Blood Pressure 99/57 L Pulse Oximetry 96 09/29/18 04:00 09/29/18 04:08 09/29/18 06:00 Temperature 98.8 F Pulse Rate 84 84 92 H Respiratory Rate 22 16 Blood Pressure 115/64 Pulse Oximetry 94 L 09/29/18 08:00 09/29/18 09:00 09/29/18 09:05 Temperature 98.4 F Pulse Rate 82 81 80 Respiratory Rate 20 20 Blood Pressure 123/66 125/66 Pulse Oximetry 96 96 100 09/29/18 09:10 09/29/18 09:15 09/29/18 09:20 Temperature Pulse Rate 81 87 86 Respiratory Rate 21 22 20 Blood Pressure 118/59 L 112/56 L 127/61 Pulse Oximetry 99 96 97 09/29/18 09:26 09/29/18 09:30 09/29/18 09:35 Temperature Pulse Rate 86 85 89 Respiratory Rate 22 20 20 Blood Pressure 128/58 L 118/56 L 119/57 L Pulse Oximetry 95 95 95 09/29/18 09:40 09/29/18 09:45 09/29/18 09:50 Temperature Pulse Rate 87 82 84 Respiratory Rate 27 H 18 26 H Blood Pressure 119/62 114/57 L 119/59 L Pulse Oximetry 96 96 93 L 09/29/18 09:55 09/29/18 10:00 09/29/18 10:05 Temperature Pulse Rate 84 81 81 Respiratory Rate 18 19 19 Blood Pressure 114/56 L 111/60 105/68 Pulse Oximetry 97 97 98 09/29/18 10:10 09/29/18 10:16 09/29/18 10:20 Temperature Pulse Rate 87 82 81 Respiratory Rate 26 H 24 21 Blood Pressure 113/83 124/60 110/57 L Pulse Oximetry 97 99 98 09/29/18 10:25 09/29/18 10:30 09/29/18 10:35 Temperature Pulse Rate 80 81 79 Respiratory Rate 25 H 19 33 H Blood Pressure 93/54 L 100/56 L 100/71 Pulse Oximetry 95 100 99 09/29/18 10:41 09/29/18 10:45 09/29/18 10:50 Temperature Pulse Rate 89 77 75 Respiratory Rate 29 H 22 19 Blood Pressure 111/53 L 105/56 L 103/52 L Pulse Oximetry 99 98 09/29/18 10:55 09/29/18 11:00 Temperature Pulse Rate 75 73 Respiratory Rate 20 18 Blood Pressure 109/53 L 100/51 L Pulse Oximetry 98 98 Intake & Output 09/28/18 09/29/18 09/29/18 18:59 06:59 18:59 Intake Total 50 / 50 150 / 150 Output Total 1000 / 1000 300 / 300 Balance -950 / -950 -150 / -150 Weight 89.2 kg Intake: IV 50 / 50 150 / 150 Flexbumin 25% Inj 50 ML @ 60 50 / 50 50 / 50 mls/hr IV.SIG Q12H NALINI Rx#: [id number] Rocephin Inj 1,000 MG In NS Inj 100 / 100 100 ML @ 200 mls/hr IV.SIG Q24H NALINI Rx#:[id number] Output: Gastric Drainage 1000 / 1000 300 / 300 Right Nare 1000 / 1000 300 / 300 Other: # Voids 6 # Incontinent Voids 4 Date of Last Bowel Movement 09/24/18 09/29/18 09/24/18 # Bowel Movements 1 # Incontinent Bowel Movements 1 - Constitutional chronically ill appearing, cooperative - Routine HEENT Exam Head: Present: normocephalic - Routine Neck Exam Present: supple - Routine Respiratory Exam Present: CTA bilaterally - Routine Abdominal Exam Present: soft, normoactive bowel sounds, distended, drain. Absent: tenderness - Routine Skin Exam Present: dry, warm - Routine Neurological Exam Present: alert - Urinary Catheter Management Indwelling Temp Sensing Catheter Cath placed during this visit: yes, but has since been removed by the nurse Urethral indwelling: Yes Reason for continuing: Hourly intake/output Insertion date: 09/21/18 Insertion time: 20:00 Removal date: 09/25/18 Removal time: 15:45 Results - Labs CBC & Chem 7: 09/29/18 06:57 09/29/18 06:57 Laboratory Results - last 24 hr 09/28/18 09/28/18 09/28/18 06:40 13:45 13:45 WBC RBC Hgb Hct MCV MCH MCHC RDW Plt Count MPV Prelim Diff (Auto) Neut % (Auto) Lymph % (Auto) [place] % (Auto) Eos % (Auto) Baso % (Auto) Neut # (Auto) Lymph # (Auto) [place] # (Auto) Eos # (Auto) Baso # (Auto) WBC Differential Diff Scan Differential Comment Platelet Estimate Platelet Morphology Dimorphic RBCs Ovalocytes Acanthocytes (Spur) Keratocytes Sodium Potassium Chloride Carbon Dioxide Anion Gap BUN Creatinine Estimated GFR POC Glucose Random Glucose Calcium Phosphorus Magnesium Total Bilirubin AST ALT Alkaline Phosphatase Lactate Dehydrogenase 292 H Total Protein 6.3 L Albumin Peritoneal RBC 159 H Periton Nuc Cells 8 Periton Neutrophils 18 Periton Lymphocytes 46 Periton Mesothelial 1 Periton Histiocytes 35 Peritoneal Tot Protein 0.3 Peritoneal Albumin 0.2 Peritoneal LDH 47 Peritoneal Glucose 124 Peritoneal Amylase 9 09/28/18 09/29/18 09/29/18 18:07 00:04 06:20 WBC RBC Hgb Hct MCV MCH MCHC RDW Plt Count MPV Prelim Diff (Auto) Neut % (Auto) Lymph % (Auto) [place] % (Auto) Eos % (Auto) Baso % (Auto) Neut # (Auto) Lymph # (Auto) [place] # (Auto) Eos # (Auto) Baso # (Auto) WBC Differential Diff Scan Differential Comment Platelet Estimate Platelet Morphology Dimorphic RBCs Ovalocytes Acanthocytes (Spur) Keratocytes Sodium Potassium Chloride Carbon Dioxide Anion Gap BUN Creatinine Estimated GFR POC Glucose 107 110 95 Random Glucose Calcium Phosphorus Magnesium Total Bilirubin AST ALT Alkaline Phosphatase Lactate Dehydrogenase Total Protein Albumin Peritoneal RBC Periton Nuc Cells Periton Neutrophils Periton Lymphocytes Periton Mesothelial Periton Histiocytes Peritoneal Tot Protein Peritoneal Albumin Peritoneal LDH Peritoneal Glucose Peritoneal Amylase 09/29/18 09/29/18 06:57 06:57 WBC 7.1 RBC 2.89 L Hgb 8.5 L Hct 25.1 L MCV 87.0 MCH 29.5 MCHC 33.9 RDW 17.9 H Plt Count 51 L MPV 9.5 Prelim Diff (Auto) Slide review pending Neut % (Auto) 75.2 H Lymph % (Auto) 7.3 L [place] % (Auto) 12.0 H Eos % (Auto) 5.1 H Baso % (Auto) 0.4 Neut # (Auto) 5.3 Lymph # (Auto) 0.5 L [place] # (Auto) 0.8 Eos # (Auto) 0.4 Baso # (Auto) 0.0 WBC Differential . Diff Scan Auto diff confirmed Differential Comment . Platelet Estimate Low L Platelet Morphology Enlarged H Dimorphic RBCs Present H Ovalocytes 1+ H Acanthocytes (Spur) 1+ H Keratocytes Occ H Sodium 150 H Potassium 3.6 Chloride 116 H Carbon Dioxide 25.6 Anion Gap 8 BUN 46 H Creatinine 1.56 H Estimated GFR 43 L POC Glucose Random Glucose 91 Calcium 8.5 Phosphorus 2.5 Magnesium 2.3 Total Bilirubin 2.4 H AST 75 H ALT 50 Alkaline Phosphatase 93 Lactate Dehydrogenase Total Protein 5.5 L D Albumin 2.9 L Peritoneal RBC Periton Nuc Cells Periton Neutrophils Periton Lymphocytes Periton Mesothelial Periton Histiocytes Peritoneal Tot Protein Peritoneal Albumin Peritoneal LDH Peritoneal Glucose Peritoneal Amylase - Imaging Impressions Chest X-Ray 09/29/18 06:00 CONCLUSION: Diminished lung volumes with probable bibasilar atelectasis Assessment and Plan (1) Hematemesis Status: Deleted Code(s): K92.0 - Hematemesis (2) Cirrhosis Status: Deleted Code(s): K74.60 - Unspecified cirrhosis of liver (3) Hx of hepatitis C Status: Deleted Code(s): Z86.19 - Personal history of other infectious and parasitic diseases (4) Thrombocytopenia Status: Deleted Code(s): D69.6 - Thrombocytopenia, unspecified (5) Tinea corporis Status: Acute Code(s): B35.4 - Tinea corporis (6) Hepatocellular carcinoma Status: Acute Code(s): C22.0 - Liver cell carcinoma - Plan 09/22/2018 EGD due to melena Hematemesis and history of cirrhosis 09/21/2018 EGD with band ligation of varices : 1. Large blood clot/blood in the fundus. Antrum normal 2. Blood in duodenum 3. Retroflexed views revealed large blood clot -Total bili 1.1 AST 40 ALT 34 alk phos 68 ammonia 43 hemoglobin 8.2 -No noted bleeding per nursing 09/23/2018 Post EGD 09/21/2018 showing large blood clots in the fundus antrum was normal there was blood in the duodenal retroflexed views revealed large blood clot recommendations for FFP platelets IV octreotide and Protonix. 09/24/2018 Liver cirrhosis with hematemesis -patient had a EGD showing large clots in the fundus of the antrum on 09/21/2018 Patient is currently intubated with Protonix IV push twice daily, octreotide discontinued this morning Hepatitis C Tinea corporis under chest Chronic kidney insufficiency Hyper ammonia 109 doubled from yesterday's level Total CK is elevated at 1370 Hemoglobin 7.6 hematocrit 22.1 platelets 48 BUN 64 creatinine 1.94 09/25/2018 Liver cirrhosis-post EGD on 09/21/2018 revealing large clots in the fundus of the antrum. Patient currently receiving IV Protonix twice daily Hemoglobin 7.7 hematocrit 22.2 stable, to begin Xifaxan, lactulose and nadolol Hepatitis C CKI Hyper ammonia-84--NG tube placement for administration of lactulose Xifaxan and nadolol 09/26/2018 Liver cirrhosis with ascites status post EGD on 09/21/2018 revealing large clots in the fundus of the antrum History of hepatitis C hepatocellular carcinoma status post TACE procedure Hyper ammonia Hemoglobin 9.4 hematocrit 27.3 platelet 56 INR 1.5 Ammonia today is 91 total bilirubin 1.8 09/29/2018 Liver cirrhosis with ascites Hepatitis C Hepatocellular carcinoma Hyper ammonia WBC 7.1 hemoglobin 8.5 hematocrit 25.1 platelet count 51 stable Patient awake and alert extubated on nasal cannula No reported bleeding Tolerating diet well post swallow evaluation 09/28/2018 KUB: Nasogastric tube is across the GE junction with persistent gaseous distention of stomach. Some small bowel gas is evident Moderate elevation the right hemidiaphragm. Plan -Diet as tolerated -Monitor for active bleeding -Monitor hemoglobin hematocrit -Transfuse to keep hemoglobin between 7 and 8 -Continue PPI 40 mg IV twice daily -Avoid anticoagulants -Supportive care -Prognosis poor -Further recommendations to follow This patient has been seen by myself and Dr. Stewart this note is written on his behalf - Attending Attestation Dr. Stewart (1) Hematemesis Qualifiers: Nausea presence: unspecified Qualified Code(s): K92.0 - Hematemesis (2) Cirrhosis Qualifiers: Ascites presence: unspecified
--- NOTE | 2018-09-29 21:31 | P.PNNP ---
Subjective Interval history: Patient seen in the afternoon, awake, not oriented, not in distress. Physical Exam Vital signs: Vital Signs 09/28/18 21:45 09/28/18 22:00 09/29/18 00:00 Temperature 98.2 F Pulse Rate 80 80 81 Respiratory Rate 16 16 Blood Pressure 99/57 L Pulse Oximetry 96 96 09/29/18 02:00 09/29/18 04:00 09/29/18 04:08 Temperature 98.8 F Pulse Rate 85 84 84 Respiratory Rate 22 16 Blood Pressure 115/64 Pulse Oximetry 94 L 09/29/18 06:00 09/29/18 08:00 09/29/18 09:00 Temperature 98.4 F Pulse Rate 92 H 82 81 Respiratory Rate 20 Blood Pressure 123/66 Pulse Oximetry 96 96 09/29/18 09:05 09/29/18 09:10 09/29/18 09:15 Temperature Pulse Rate 80 81 87 Respiratory Rate 20 21 22 Blood Pressure 125/66 118/59 L 112/56 L Pulse Oximetry 100 99 96 09/29/18 09:20 09/29/18 09:26 09/29/18 09:30 Temperature Pulse Rate 86 86 85 Respiratory Rate 20 22 20 Blood Pressure 127/61 128/58 L 118/56 L Pulse Oximetry 97 95 95 09/29/18 09:35 09/29/18 09:40 09/29/18 09:45 Temperature Pulse Rate 89 87 82 Respiratory Rate 20 27 H 18 Blood Pressure 119/57 L 119/62 114/57 L Pulse Oximetry 95 96 96 09/29/18 09:50 09/29/18 09:55 09/29/18 10:00 Temperature Pulse Rate 84 84 81 Respiratory Rate 26 H 18 19 Blood Pressure 119/59 L 114/56 L 111/60 Pulse Oximetry 93 L 97 97 09/29/18 10:05 09/29/18 10:10 09/29/18 10:16 Temperature Pulse Rate 81 87 82 Respiratory Rate 19 26 H 24 Blood Pressure 105/68 113/83 124/60 Pulse Oximetry 98 97 99 09/29/18 10:20 09/29/18 10:25 09/29/18 10:30 Temperature Pulse Rate 81 80 81 Respiratory Rate 21 25 H 19 Blood Pressure 110/57 L 93/54 L 100/56 L Pulse Oximetry 98 95 100 09/29/18 10:35 09/29/18 10:41 09/29/18 10:45 Temperature Pulse Rate 79 89 77 Respiratory Rate 33 H 29 H 22 Blood Pressure 100/71 111/53 L 105/56 L Pulse Oximetry 99 99 09/29/18 10:50 09/29/18 10:55 09/29/18 11:00 Temperature Pulse Rate 75 75 73 Respiratory Rate 19 20 18 Blood Pressure 103/52 L 109/53 L 100/51 L Pulse Oximetry 98 98 98 09/29/18 12:00 09/29/18 13:00 09/29/18 13:01 Temperature 97.5 F L Pulse Rate 72 72 71 Respiratory Rate 22 31 H 27 H Blood Pressure 99/57 L 114/59 L Pulse Oximetry 98 96 09/29/18 14:00 09/29/18 15:00 09/29/18 15:10 Temperature Pulse Rate 74 73 87 Respiratory Rate 21 26 H 20 Blood Pressure 91/54 L 120/62 Pulse Oximetry 83 L 09/29/18 16:00 09/29/18 16:01 09/29/18 18:00 Temperature 98.7 F Pulse Rate 75 75 73 Respiratory Rate 20 19 Blood Pressure 98/63 L Pulse Oximetry 95 96 09/29/18 20:00 09/29/18 20:47 Temperature 99.0 F Pulse Rate 74 75 Respiratory Rate 20 20 Blood Pressure 99/55 L Pulse Oximetry 94 L 93 L Intake & Output 09/29/18 09/29/18 09/30/18 06:59 18:59 06:59 Intake Total 150 / 150 50 / 50 Output Total 300 / 300 225 / 225 Balance -150 / -150 -175 / -175 Weight 89.2 kg Intake: IV 150 / 150 50 / 50 Flexbumin 25% Inj 50 ML @ 60 50 / 50 50 / 50 mls/hr IV.SIG Q12H NALINI Rx#: [id number] Rocephin Inj 1,000 MG In NS Inj 100 / 100 100 ML @ 200 mls/hr IV.SIG Q24H NALINI Rx#:[id number] Output: Urine 225 / 225 Gastric Drainage 300 / 300 Right Nare 300 / 300 Other: # Incontinent Voids 4 1 Date of Last Bowel Movement 09/29/18 09/29/18 09/29/18 # Incontinent Bowel Movements 1 2 Narrative: GENERAL: Awake, and confused. SKIN: Warm and dry. NECK: Supple, trachea midline. No JVD CARDIOVASCULAR: Regular rate and rhythm without murmurs, gallops, or rubs. RESPIRATORY: Breath sounds equal bilaterally. No accessory muscle use. Orally intubated. GASTROINTESTINAL: Abdomen soft, non-tender, distended. OG tube GI: Indwelling Burnett catheter, clear yellow urine. MUSCULOSKELETAL: No cyanosis, generalized edema upper and lower extremity BACK: Nontender without obvious deformity. No CVA tenderness. - Urinary Catheter Management Indwelling Temp Sensing Catheter Cath placed during this visit: yes, but has since been removed by the nurse Urethral indwelling: Yes Reason for continuing: Hourly intake/output Insertion date: 09/21/18 Insertion time: 20:00 Removal date: 09/25/18 Removal time: 15:45 Assessment and Plan - Assessment (1) Acute kidney failure Code(s): N17.9 - Acute kidney failure, unspecified Status: Acute (2) Respiratory failure Code(s): J96.90 - Respiratory failure, unspecified, unspecified whether with hypoxia or hypercapnia Status: Acute (3) Hepatocellular carcinoma Code(s): C22.0 - Liver cell carcinoma Status: Acute - Plan Patient with Chronic liver disease, and Hepatocellular carcinoma. Has GI bleeding and respiratory failure. BP is stable, Creatinine is now 1.5, Started on Lasix , has more edema. K is normal Po4 is better, and on replacement. Follow the urine out put and diuretics as needed.
[2018-09-30] MEDS: Artificial Tears Opth Drops 15 ML Bottle EACH EYE SCH ×3 (03:31→16:35)
[2018-09-30] MEDS: Oral Hygiene Kit OROPHARYNG SCH ×3 (03:32→20:33)
[2018-09-30] MEDS: rifAXIMin 550 MG Tablet PO SCH ×2 (03:33→15:35)
[2018-09-30] MEDS: Insulin NovoLOG Aspart Correctional Sugar Inj SQ SCH ×3 (05:27→20:33)
[2018-09-30 07:02] LABS: Baso % (Auto) 0.5 % (0.0-2.0); Eos # (Auto) 0.5 th/mm3 (0.0-0.4); Eos % (Auto) 9.4 % (0.0-4.0); Hematocrit 22.5 % (39.0-51.0); Hemoglobin 7.7 gm/dL (13.0-17.0); Lymph # (Auto) 0.4 th/mm3 (1.0-4.8); Lymph % (Auto) 7.9 % (9.0-44.0); Mean Corpuscular Hemoglobin 29.5 pg (27.0-34.0); Mean Corpuscular Volume 86.8 fL (80.0-100.0); Mean Platelet Volume 9.6 fL (7.0-11.0); Mono # (Auto) 0.6 th/mm3 (0.0-0.9); Mono % (Auto) 11.7 % (0.0-8.0); Neut # (Auto) 3.9 th/mm3 (1.8-7.7); Neut % (Auto) 70.5 % (16.0-70.0); Platelet Count 49 th/mm3 (150-450); Red Cell Distribution Width 17.5 % (11.6-17.2); White Blood Count 5.5 th/mm3 (4.0-11.0)
[2018-09-30 07:16] LABS: Albumin 2.7 g/dL (3.4-5.0); Anion Gap 6 meq/L (5-15); Aspartate Aminotransferase 67 U/L (15-37); Blood Urea Nitrogen 43 mg/dL (7-18); Calcium 8.5 mg/dL (8.5-10.1); Carbon Dioxide 26.1 meq/L (21.0-32.0); Chloride 114 meq/L (98-107); Glomerular Filtration Rate 46 mL/min (>89); Glucose,Random 91 mg/dL (74-106); Magnesium 2.3 mg/dL (1.5-2.5); Potassium 3.3 meq/L (3.5-5.1); Sodium 146 meq/L (136-145)
[2018-09-30 07:17] LABS: Alanine Aminotransferase 50 U/L (12-78); Phosphorus 2.2 mg/dL (2.5-4.9)
[2018-09-30 07:19] LABS: Alkaline Phosphatase 85 U/L (45-117); Total Protein 5.3 g/dL (6.4-8.2)
[2018-09-30] MEDS: Dextrose 5% in Water Inj 1,000 ML IV.CONT SCH (07:24)
--- NOTE | 2018-09-30 08:18 | P.PNCC ---
Subjective Subjective Remarks/Hospital Course: 09/22: Overnight the patient underwent EGD 5 columns of esophageal varices was located but no bleeding was noted per large blood clot was noted in the fundus and the duodenum 0 hemoglobin and hematocrits continue last hemoglobin noted to be 7.9. The patient continues on Protonix and octreotide infusions currently. Patient was noted to have a low normal blood pressure on propofol infusion this is been discontinued. Versed and fentanyl infusions initiated to maintain ventilator synchrony. Patient noted to have acute kidney injury creatinine downtrending slightly peer nephrology has been consulted appreciate recommendations per patient with known ascites last known paracentesis approximately 4 months ago peer INR within normal limits invasive radiology has been consulted for possible paracentesis. 09/23: The patient underwent CT-guided paracentesis yesterday 5.2 L removed the patient's FiO2 requirements continue to decrease PEEP has been decreased down to 5 FiO2 of 40%. Urine output 770 cc in 24hr. Lactulose enemas have been added to medication regimen twice daily secondary to hyperammonemia. 09/24: Afebrile. Continues with low urine output. Ventilator settings stable. Went to A. fib with RVR. Laboratories pending. EKG pending. On fentanyl drip sedation 100 mcg an hour. 09/25: NG tube placed today. Remains on the ventilator. Withdraws to pain. Positive cough and gag. Ammonia level down to 84. 09/26: Currently resting in bed in no acute distress. Minimally responsive on the ventilator off all sedation. MRI of the brain currently pending. Ammonia level is currently 91. 09/27: Afebrile. More awake today. MRI brain revealed no acute findings. Currently on CPAP trial. SUBJECTIVE: 09/28: Decompressed stomach this a.m. Appears comfortable and tolerating CPAP trials. We will give 1 dose of furosemide attempt extubate today if minimal ascites evaluated. 09/29 Patient was extubated yesterday pulled his NGT and PIV overnight. Afebrile. s/p Paracentesis with removal 4L. Afebrile. 09/30 Patient is lying in bed in NAD. Afebrile. Objective Vital Signs / I&O: Vital Signs 09/29/18 09:00 09/29/18 09:05 09/29/18 09:10 Temperature 98.4 F Pulse Rate 81 80 81 Respiratory Rate 20 20 21 Blood Pressure 123/66 125/66 118/59 L Pulse Oximetry 96 100 99 09/29/18 09:15 09/29/18 09:20 09/29/18 09:26 Temperature Pulse Rate 87 86 86 Respiratory Rate 22 20 22 Blood Pressure 112/56 L 127/61 128/58 L Pulse Oximetry 96 97 95 09/29/18 09:30 09/29/18 09:35 09/29/18 09:40 Temperature Pulse Rate 85 89 87 Respiratory Rate 20 20 27 H Blood Pressure 118/56 L 119/57 L 119/62 Pulse Oximetry 95 95 96 09/29/18 09:45 09/29/18 09:50 09/29/18 09:55 Temperature Pulse Rate 82 84 84 Respiratory Rate 18 26 H 18 Blood Pressure 114/57 L 119/59 L 114/56 L Pulse Oximetry 96 93 L 97 09/29/18 10:00 09/29/18 10:05 09/29/18 10:10 Temperature Pulse Rate 81 81 87 Respiratory Rate 19 19 26 H Blood Pressure 111/60 105/68 113/83 Pulse Oximetry 97 98 97 09/29/18 10:16 09/29/18 10:20 09/29/18 10:25 Temperature Pulse Rate 82 81 80 Respiratory Rate 24 21 25 H Blood Pressure 124/60 110/57 L 93/54 L Pulse Oximetry 99 98 95 09/29/18 10:30 09/29/18 10:35 09/29/18 10:41 Temperature Pulse Rate 81 79 89 Respiratory Rate 19 33 H 29 H Blood Pressure 100/56 L 100/71 111/53 L Pulse Oximetry 100 99 09/29/18 10:45 09/29/18 10:50 09/29/18 10:55 Temperature Pulse Rate 77 75 75 Respiratory Rate 22 19 20 Blood Pressure 105/56 L 103/52 L 109/53 L Pulse Oximetry 99 98 98 09/29/18 11:00 09/29/18 12:00 09/29/18 13:00 Temperature 97.5 F L Pulse Rate 73 72 72 Respiratory Rate 18 22 31 H Blood Pressure 100/51 L 99/57 L Pulse Oximetry 98 98 09/29/18 13:01 09/29/18 14:00 09/29/18 15:00 Temperature Pulse Rate 71 74 73 Respiratory Rate 27 H 21 26 H Blood Pressure 114/59 L 91/54 L 120/62 Pulse Oximetry 96 83 L 09/29/18 15:10 09/29/18 16:00 09/29/18 16:01 Temperature 98.7 F Pulse Rate 87 75 75 Respiratory Rate 20 20 19 Blood Pressure 98/63 L Pulse Oximetry 95 96 09/29/18 18:00 09/29/18 20:00 09/29/18 20:47 Temperature 99.0 F Pulse Rate 73 74 75 Respiratory Rate 20 20 Blood Pressure 99/55 L Pulse Oximetry 94 L 93 L 09/29/18 22:00 09/30/18 00:00 09/30/18 00:16 Temperature 98.4 F Pulse Rate 85 80 79 Respiratory Rate 20 Blood Pressure 114/56 L Pulse Oximetry 92 L 09/30/18 01:00 09/30/18 02:00 09/30/18 04:00 Temperature 97.2 F L Pulse Rate 82 76 79 Respiratory Rate 21 20 Blood Pressure 117/57 L 128/68 Pulse Oximetry 87 L 93 L 09/30/18 04:01 09/30/18 06:00 Temperature Pulse Rate 79 70 Respiratory Rate 22 Blood Pressure Pulse Oximetry Intake & Output 09/29/18 09/30/18 09/30/18 18:59 06:59 18:59 Intake Total 50 / 50 1150 / 1150 Output Total 225 / 225 Balance -175 / -175 1150 / 1150 Weight 82.7 kg Intake: IV 50 / 50 1150 / 1150 D5W Inj 1,000 ML @ 50 mls/hr IV 1000 / 1000 .CONT .Q20H NALINI Rx#:[id number] Flexbumin 25% Inj 50 ML @ 60 50 / 50 50 / 50 mls/hr IV.SIG Q12H NALINI Rx#: [id number] Rocephin Inj 1,000 MG In NS Inj 100 / 100 100 ML @ 200 mls/hr IV.SIG Q24H NALINI Rx#:[id number] Output: Urine 225 / 225 Other: # Incontinent Voids 1 3 Date of Last Bowel Movement 09/29/18 09/29/18 # Bowel Movements 3 # Incontinent Bowel Movements 2 Result Diagrams: 09/30/18 05:31 09/30/18 05:31 Other Results: Laboratory Results - last 12 hr 09/29/18 09/30/18 09/30/18 23:36 05:21 05:31 WBC 5.5 RBC 2.60 L Hgb 7.7 L Hct 22.5 L MCV 86.8 MCH 29.5 MCHC 34.0 RDW 17.5 H Plt Count 49 L MPV 9.6 Prelim Diff (Auto) Slide review pending Neut % (Auto) 70.5 H Lymph % (Auto) 7.9 L Gregory % (Auto) 11.7 H Eos % (Auto) 9.4 H Baso % (Auto) 0.5 Neut # (Auto) 3.9 Lymph # (Auto) 0.4 L Gregory # (Auto) 0.6 Eos # (Auto) 0.5 H Baso # (Auto) 0.0 Differential Comment . Sodium Potassium Chloride Carbon Dioxide Anion Gap BUN Creatinine Estimated GFR POC Glucose 107 105 Random Glucose Calcium Phosphorus Magnesium Total Bilirubin AST ALT Alkaline Phosphatase Total Protein Albumin 09/30/18 05:31 WBC RBC Hgb Hct MCV MCH MCHC RDW Plt Count MPV Prelim Diff (Auto) Neut % (Auto) Lymph % (Auto) Gregory % (Auto) Eos % (Auto) Baso % (Auto) Neut # (Auto) Lymph # (Auto) Gregory # (Auto) Eos # (Auto) Baso # (Auto) Differential Comment Sodium 146 H Potassium 3.3 L Chloride 114 H Carbon Dioxide 26.1 Anion Gap 6 BUN 43 H Creatinine 1.50 H Estimated GFR 46 L POC Glucose Random Glucose 91 Calcium 8.5 Phosphorus 2.2 L Magnesium 2.3 Total Bilirubin 2.5 H AST 67 H ALT 50 Alkaline Phosphatase 85 Total Protein 5.3 L Albumin 2.7 L Imaging: Paracentesis CT 09/22/18 14:08 CONCLUSION: 1. Uncomplicated CT Guided paracentesis. Abdomen/Bladder Ultrasound 09/23/18 00:00 CONCLUSION: 1. Echogenic kidneys consistent with medical renal disease. 2. Cirrhotic liver with ascites. 3. Small right pleural effusion, likely hepatic hydrothorax. Head MRI 09/26/18 00:00 CONCLUSION: 1. Negative for acute process. Abdomen X-Ray 09/28/18 10:46 CONCLUSION: Nasogastric tube across the GE junction. There is persistent gaseous distention in spite of such. Clinical correlation suggested. Chest X-Ray 09/29/18 06:00 CONCLUSION: Diminished lung volumes with probable bibasilar atelectasis Objective Remarks: GENERAL: This is a well-developed well-nourished chronically ill-appearing lying in bed in [facility] SKIN: Warm and dry. HEAD: Atraumatic. Normocephalic. EYES: Pupils equal and round. No scleral icterus. No injection or drainage. ENT: No nasal bleeding or discharge. Mucous membranes pink and moist. NECK: Trachea midline. No JVD. CARDIOVASCULAR: RRR. S1, S2. No S4. No murmur RESPIRATORY: No accessory muscle use. Clear to auscultation. Breath sounds equal bilaterally. GASTROINTESTINAL: Soft, non tender, mildly distended, + BS. MUSCULOSKELETAL: Extremities without clubbing, cyanosis, or edema. No obvious deformities. Noted 1+ bilateral pedal edema NEUROLOGICAL: Cranial nerves II through XII grossly intact. Procedures: 09/21- EGD 09/22-CT guided paracentesis 2.5 L removed Assessment and Plan - Assessment and Plan Plan: NEURO/PSYCH: History of stroke with residual aphasia Monitor neuro status and avoid sedatives. MRI brain 09/26 without acute intracranial findings RESP: Acute respiratory failure Extubated 09/28 Continue with oxygen keep sats >92% Albuterol/ipratropium aerosols every 6 hours with albuterol aerosols every 2 hours as needed dyspnea Incentive spirometry CV: Essential hypertension Atrial fibrillation currently normal sinus rhythm Monitor HR and BP keep MAP>65mmHg Metoprolol tartrate 12.5mg TID and as needed labetalol/Nitropaste for hypertension GI: Upper GI bleed secondary to esophageal varices now s/p banding Hx Hep C Cirrhosis Hepatocellular carcinoma s/p TACE procedure Recurrent ascites Hyperammonemia Hypoalbuminemia On mechanical soft diet Pantoprazole 40 mg IV twice daily Octreotide drip previously 25 mcg an hour discontinued 09/25. 09/21 GI consulted emergently, Dr. Beverly. Esophageal varices banded. Reportedly no active bleeding but unable to rule out gastric varices due to presence of clots in the stomach. 09/28- Paracentesis with removal 4.2L. 09/22paracentesis 5.2 L removed Lactulose enemas twice daily switch to Xifaxan 550 twice daily and lactulose 30 cc 4 times daily. Ammonia level 43 09/28 FEN/RENAL: ?MART (unknown baseline creatinine) Hypernatremia Monitor renal function, I/O's, electrolytes replacement per protocol. Will need K replacement today. Nephrology following. On Lasix 40mg daily, Albumin 25gms Q12 d/c IVF ID: Tinea corporis Ceftriaxone for SBP prophylaxis. Sputum culture no growth to date HEME: Acute blood loss anemia/normocytic Thrombocytopenia Coagulopathy with elevated INR Transfuse 3 units PRBCs, 1 unit FFP and 1 unit of platelets since admission Monitor CBC daily. Follow trends. ENDO: Sliding scale insulin aspart insulin/low regimen to maintain euglycemia every 6 hours TSH 0.163. Total T3 is low. Free T3 was/low normal. PROPH: SCDs for DVT prophylaxis. Pharmacologic DVT prophylaxis is contraindicated. Pantoprazole 40 mg IV twice daily ACCESS: PIV Level 2
[2018-09-30 08:31] LABS: Acanthocytes Occ; Ovalocytes 1+
[2018-09-30] MEDS: Pantoprazole Inj 40 MG Vial IV.PUSH SCH ×2 (11:23→21:13)
[2018-09-30] MEDS: Metoprolol Tartrate 25 MG Tablet PO SCH ×3 (11:24→20:34)
[2018-09-30] MEDS: Chlorhexidine 0.12% Oral Kit 15 ML UDC OROPHARYNG SCH ×2 (11:24→21:08)
[2018-09-30] MEDS: Clotrimazole 1% Cream 15 GM Tube TOPICAL SCH (11:24)
[2018-09-30] MEDS: Senna/Docusate Sodium 8.6/50 MG Tablet PO SCH ×2 (11:25→21:13)
--- NOTE | 2018-09-30 12:03 | P.PNGI ---
Subjective Interval history: Patient resting soundly with eyes closed, awakens easily Denies abdominal pain No obvious bleeding reported Extubated breathing well on nasal cannula Physical Exam Vital signs: Vital Signs 09/29/18 12:00 09/29/18 13:00 09/29/18 13:01 Temperature 97.5 F L Pulse Rate 72 72 71 Respiratory Rate 22 31 H 27 H Blood Pressure 99/57 L 114/59 L Pulse Oximetry 98 96 09/29/18 14:00 09/29/18 15:00 09/29/18 15:10 Temperature Pulse Rate 74 73 87 Respiratory Rate 21 26 H 20 Blood Pressure 91/54 L 120/62 Pulse Oximetry 83 L 09/29/18 16:00 09/29/18 16:01 09/29/18 18:00 Temperature 98.7 F Pulse Rate 75 75 73 Respiratory Rate 20 19 Blood Pressure 98/63 L Pulse Oximetry 95 96 09/29/18 20:00 09/29/18 20:47 09/29/18 22:00 Temperature 99.0 F Pulse Rate 74 75 85 Respiratory Rate 20 20 Blood Pressure 99/55 L Pulse Oximetry 94 L 93 L 09/30/18 00:00 09/30/18 00:16 09/30/18 01:00 Temperature 98.4 F Pulse Rate 80 79 82 Respiratory Rate 20 21 Blood Pressure 114/56 L 117/57 L Pulse Oximetry 92 L 87 L 09/30/18 02:00 09/30/18 04:00 09/30/18 04:01 Temperature 97.2 F L Pulse Rate 76 79 79 Respiratory Rate 20 22 Blood Pressure 128/68 Pulse Oximetry 93 L 09/30/18 06:00 09/30/18 09:22 Temperature Pulse Rate 70 73 Respiratory Rate 20 Blood Pressure Pulse Oximetry Intake & Output 09/29/18 09/30/18 09/30/18 18:59 06:59 18:59 Intake Total 50 / 50 1150 / 1150 Output Total 225 / 225 Balance -175 / -175 1150 / 1150 Weight 82.7 kg Intake: IV 50 / 50 1150 / 1150 D5W Inj 1,000 ML @ 50 mls/hr IV 1000 / 1000 .CONT .Q20H NALINI Rx#:[id number] Flexbumin 25% Inj 50 ML @ 60 50 / 50 50 / 50 mls/hr IV.SIG Q12H NALINI Rx#: [id number] Rocephin Inj 1,000 MG In NS Inj 100 / 100 100 ML @ 200 mls/hr IV.SIG Q24H NALINI Rx#:[id number] Output: Urine 225 / 225 Other: # Incontinent Voids 1 3 Date of Last Bowel Movement 09/29/18 09/29/18 # Bowel Movements 3 # Incontinent Bowel Movements 2 - Constitutional chronically ill appearing, cooperative - Routine HEENT Exam Head: Present: normocephalic Eye: Present: conjunctival icterus ENT: Present: mucous membranes dry - Routine Neck Exam Present: supple - Routine Respiratory Exam Present: CTA bilaterally. Absent: accessory muscle use - Routine Cardiovascular Exam Present: RRR, S1, S2. Absent: murmur - Routine Abdominal Exam Present: soft, normoactive bowel sounds, distended. Absent: tenderness - Routine Extremities Exam Absent: edema - Routine Skin Exam Present: dry, warm - Urinary Catheter Management Indwelling Temp Sensing Catheter Cath placed during this visit: yes, but has since been removed by the nurse Urethral indwelling: Yes Reason for continuing: Hourly intake/output Insertion date: 09/21/18 Insertion time: 20:00 Removal date: 09/25/18 Removal time: 15:45 Results - Labs CBC & Chem 7: 09/30/18 12:51 09/30/18 05:31 Laboratory Results - last 24 hr 09/29/18 09/29/18 09/29/18 12:58 17:08 23:36 WBC RBC Hgb Hct MCV MCH MCHC RDW Plt Count MPV Prelim Diff (Auto) Neut % (Auto) Lymph % (Auto) Starke % (Auto) Eos % (Auto) Baso % (Auto) Neut # (Auto) Lymph # (Auto) Starke # (Auto) Eos # (Auto) Baso # (Auto) WBC Differential Diff Scan Differential Comment Ovalocytes Acanthocytes (Spur) Keratocytes Sodium Potassium Chloride Carbon Dioxide Anion Gap BUN Creatinine Estimated GFR POC Glucose 115 H 101 107 Random Glucose Calcium Phosphorus Magnesium Total Bilirubin AST ALT Alkaline Phosphatase Total Protein Albumin 09/30/18 09/30/18 09/30/18 05:21 05:31 05:31 WBC 5.5 RBC 2.60 L Hgb 7.7 L Hct 22.5 L MCV 86.8 MCH 29.5 MCHC 34.0 RDW 17.5 H Plt Count 49 L MPV 9.6 Prelim Diff (Auto) Slide review pending Neut % (Auto) 70.5 H Lymph % (Auto) 7.9 L Starke % (Auto) 11.7 H Eos % (Auto) 9.4 H Baso % (Auto) 0.5 Neut # (Auto) 3.9 Lymph # (Auto) 0.4 L Starke # (Auto) 0.6 Eos # (Auto) 0.5 H Baso # (Auto) 0.0 WBC Differential . Diff Scan Auto diff confirmed Differential Comment . Ovalocytes 1+ H Acanthocytes (Spur) Occ H Keratocytes Occ H Sodium 146 H Potassium 3.3 L Chloride 114 H Carbon Dioxide 26.1 Anion Gap 6 BUN 43 H Creatinine 1.50 H Estimated GFR 46 L POC Glucose 105 Random Glucose 91 Calcium 8.5 Phosphorus 2.2 L Magnesium 2.3 Total Bilirubin 2.5 H AST 67 H ALT 50 Alkaline Phosphatase 85 Total Protein 5.3 L Albumin 2.7 L Assessment and Plan (1) Hematemesis Status: Deleted Code(s): K92.0 - Hematemesis (2) Cirrhosis Status: Deleted Code(s): K74.60 - Unspecified cirrhosis of liver (3) Hx of hepatitis C Status: Deleted Code(s): Z86.19 - Personal history of other infectious and parasitic diseases (4) Thrombocytopenia Status: Deleted Code(s): D69.6 - Thrombocytopenia, unspecified (5) Tinea corporis Status: Acute Code(s): B35.4 - Tinea corporis (6) Hepatocellular carcinoma Status: Acute Code(s): C22.0 - Liver cell carcinoma - Plan 09/22/2018 EGD due to melena Hematemesis and history of cirrhosis 09/21/2018 EGD with band ligation of varices : 1. Large blood clot/blood in the fundus. Antrum normal 2. Blood in duodenum 3. Retroflexed views revealed large blood clot -Total bili 1.1 AST 40 ALT 34 alk phos 68 ammonia 43 hemoglobin 8.2 -No noted bleeding per nursing 09/23/2018 Post EGD 09/21/2018 showing large blood clots in the fundus antrum was normal there was blood in the duodenal retroflexed views revealed large blood clot recommendations for FFP platelets IV octreotide and Protonix. 09/24/2018 Liver cirrhosis with hematemesis -patient had a EGD showing large clots in the fundus of the antrum on 09/21/2018 Patient is currently intubated with Protonix IV push twice daily, octreotide discontinued this morning Hepatitis C Tinea corporis under chest Chronic kidney insufficiency Hyper ammonia 109 doubled from yesterday's level Total CK is elevated at 1370 Hemoglobin 7.6 hematocrit 22.1 platelets 48 BUN 64 creatinine 1.94 09/25/2018 Liver cirrhosis-post EGD on 09/21/2018 revealing large clots in the fundus of the antrum. Patient currently receiving IV Protonix twice daily Hemoglobin 7.7 hematocrit 22.2 stable, to begin Xifaxan, lactulose and nadolol Hepatitis C CKI Hyper ammonia-84--NG tube placement for administration of lactulose Xifaxan and nadolol 09/26/2018 Liver cirrhosis with ascites status post EGD on 09/21/2018 revealing large clots in the fundus of the antrum History of hepatitis C hepatocellular carcinoma status post TACE procedure Hyper ammonia Hemoglobin 9.4 hematocrit 27.3 platelet 56 INR 1.5 Ammonia today is 91 total bilirubin 1.8 09/29/2018 Liver cirrhosis with ascites Hepatitis C Hepatocellular carcinoma Hyper ammonia WBC 7.1 hemoglobin 8.5 hematocrit 25.1 platelet count 51 stable Patient awake and alert extubated on nasal cannula No reported bleeding Tolerating diet well post swallow evaluation 09/28/2018 KUB: Nasogastric tube is across the GE junction with persistent gaseous distention of stomach. Some small bowel gas is evident Moderate elevation the right hemidiaphragm. 09/30/2018 Liver cirrhosis with ascites Hepatitis C with hepatocellular carcinoma WBC 5.5 hemoglobin 7.7 hematocrit 22.5 No reported obvious bleeding-transfuse if needed to keep hemoglobin between 7 and 8 Plan -Diet as tolerated -Continue IV antibiotics -Transfuse to keep hemoglobin between 7 and 8 -Continue PPI, lactulose, Xifaxan, nadolol, Lasix and Aldactone -Ammonia level in a.m. -Avoid anticoagulants -Avoid hepatotoxins -Monitor for hemoglobin and hematocrit -Monitor for any active bleeding -Continue diuretics -Supportive care -GI will sign off at this time, please notify if any further assistance required This patient has been seen by myself and Dr. Stewart this note is written on his behalf - Attending Attestation Dr. Stewart (1) Hematemesis Qualifiers: Nausea presence: unspecified Qualified Code(s): K92.0 - Hematemesis (2) Cirrhosis Qualifiers: Ascites presence: unspecified
[2018-09-30 13:23] LABS: Hematocrit 24.1 % (39.0-51.0)
--- NOTE | 2018-09-30 17:09 | P.PNNP ---
Subjective Interval history: Sitting up in bed with soft limb restraints. Creatinine stable at 1.5. Physical Exam Vital signs: Vital Signs 09/29/18 18:00 09/29/18 20:00 09/29/18 20:47 Temperature 99.0 F Pulse Rate 73 74 75 Respiratory Rate 20 20 Blood Pressure 99/55 L Pulse Oximetry 94 L 93 L 09/29/18 22:00 09/30/18 00:00 09/30/18 00:16 Temperature 98.4 F Pulse Rate 85 80 79 Respiratory Rate 20 Blood Pressure 114/56 L Pulse Oximetry 92 L 09/30/18 01:00 09/30/18 02:00 09/30/18 04:00 Temperature 97.2 F L Pulse Rate 82 76 79 Respiratory Rate 21 20 Blood Pressure 117/57 L 128/68 Pulse Oximetry 87 L 93 L 09/30/18 04:01 09/30/18 06:00 09/30/18 08:00 Temperature Pulse Rate 79 70 83 Respiratory Rate 22 19 Blood Pressure Pulse Oximetry 09/30/18 09:22 09/30/18 10:00 09/30/18 12:00 Temperature Pulse Rate 73 82 83 Respiratory Rate 20 19 Blood Pressure Pulse Oximetry 09/30/18 14:00 09/30/18 16:18 Temperature Pulse Rate 74 75 Respiratory Rate 24 Blood Pressure Pulse Oximetry Intake & Output 09/29/18 09/30/18 09/30/18 18:59 06:59 18:59 Intake Total 50 / 50 1150 / 1150 Output Total 225 / 225 Balance -175 / -175 1150 / 1150 Weight 82.7 kg Intake: IV 50 / 50 1150 / 1150 D5W Inj 1,000 ML @ 50 mls/hr IV 1000 / 1000 .CONT .Q20H NALINI Rx#:[id number] Flexbumin 25% Inj 50 ML @ 60 50 / 50 50 / 50 mls/hr IV.SIG Q12H NALINI Rx#: [id number] Rocephin Inj 1,000 MG In NS Inj 100 / 100 100 ML @ 200 mls/hr IV.SIG Q24H NALINI Rx#:[id number] Output: Urine 225 / 225 Other: # Incontinent Voids 1 3 Date of Last Bowel Movement 09/29/18 09/29/18 09/29/18 # Bowel Movements 3 # Incontinent Bowel Movements 2 Narrative: GENERAL: Awake, and confused. SKIN: Warm and dry. NECK: Supple, trachea midline. No JVD CARDIOVASCULAR: Regular rate and rhythm without murmurs, gallops, or rubs. RESPIRATORY: Breath sounds equal bilaterally. No accessory muscle use. GASTROINTESTINAL: Abdomen soft, non-tender, distended. MUSCULOSKELETAL: No cyanosis, mild edema BACK: Nontender without obvious deformity. No CVA tenderness. - Urinary Catheter Management Indwelling Temp Sensing Catheter Cath placed during this visit: yes, but has since been removed by the nurse Urethral indwelling: Yes Reason for continuing: Hourly intake/output Insertion date: 09/21/18 Insertion time: 20:00 Removal date: 09/25/18 Removal time: 15:45 Assessment and Plan - Assessment (1) Acute kidney failure Code(s): N17.9 - Acute kidney failure, unspecified Status: Acute (2) Respiratory failure Code(s): J96.90 - Respiratory failure, unspecified, unspecified whether with hypoxia or hypercapnia Status: Acute (3) Hepatocellular carcinoma Code(s): C22.0 - Liver cell carcinoma Status: Acute - Plan Patient with Chronic liver disease, and Hepatocellular carcinoma. Had GI bleeding and respiratory failure. Creatinine is now 1.5, adequate urinary output Continue lasix tolerating well. Potassium at 3.2, replacement per protocol. Follow the urine out put and diuretics as needed.
[2018-09-30] MEDS: Ciprofloxacin 500 MG Tablet PO SCH (21:08)
[2018-10-01] MEDS: Oral Hygiene Kit OROPHARYNG SCH ×5 (01:10→23:52)
[2018-10-01] MEDS: Artificial Tears Opth Drops 15 ML Bottle EACH EYE SCH ×4 (01:10→23:52)
[2018-10-01] MEDS: Insulin NovoLOG Aspart Correctional Sugar Inj SQ SCH ×5 (01:10→23:51)
[2018-10-01] MEDS: rifAXIMin 550 MG Tablet PO SCH ×2 (03:06→14:59)
[2018-10-01 05:01] LABS: Baso % (Auto) 0.6 % (0.0-2.0); Eos # (Auto) 0.6 th/mm3 (0.0-0.4); Eos % (Auto) 9.3 % (0.0-4.0); Hematocrit 24.8 % (39.0-51.0); Hemoglobin 8.3 gm/dL (13.0-17.0); Lymph # (Auto) 0.5 th/mm3 (1.0-4.8); Mean Corpuscular HGB Conc 33.4 % (32.0-36.0); Mean Corpuscular Hemoglobin 29.2 pg (27.0-34.0); Mean Corpuscular Volume 87.5 fL (80.0-100.0); Mean Platelet Volume 9.5 fL (7.0-11.0); Mono # (Auto) 0.7 th/mm3 (0.0-0.9); Mono % (Auto) 9.8 % (0.0-8.0); Neut # (Auto) 4.9 th/mm3 (1.8-7.7); Neut % (Auto) 73.3 % (16.0-70.0); Platelet Count 51 th/mm3 (150-450); Red Blood Count 2.84 mil/mm3 (4.50-5.90); White Blood Count 6.7 th/mm3 (4.0-11.0)
[2018-10-01] MEDS: Clotrimazole 1% Cream 15 GM Tube TOPICAL SCH ×3 (05:06→23:15)
[2018-10-01 05:22] LABS: Albumin 2.9 g/dL (3.4-5.0); Anion Gap 9 meq/L (5-15); Aspartate Aminotransferase 70 U/L (15-37); Blood Urea Nitrogen 42 mg/dL (7-18); Carbon Dioxide 25.4 meq/L (21.0-32.0); Chloride 113 meq/L (98-107); Glomerular Filtration Rate 44 mL/min (>89); Glucose,Random 85 mg/dL (74-106); Potassium 3.5 meq/L (3.5-5.1); Sodium 147 meq/L (136-145)
[2018-10-01 05:25] LABS: Alanine Aminotransferase 52 U/L (12-78); Alkaline Phosphatase 95 U/L (45-117); Phosphorus 1.9 mg/dL (2.5-4.9); Total Protein 5.5 g/dL (6.4-8.2)
[2018-10-01] MEDS: Pantoprazole Inj 40 MG Vial IV.PUSH SCH ×2 (08:39→21:39)
[2018-10-01] MEDS: Metoprolol Tartrate 25 MG Tablet PO SCH ×3 (08:39→18:00)
[2018-10-01] MEDS: Furosemide 40 MG Tablet PO SCH (08:39)
[2018-10-01] MEDS: Ciprofloxacin 500 MG Tablet PO SCH ×2 (08:39→21:37)
[2018-10-01] MEDS: Chlorhexidine 0.12% Oral Kit 15 ML UDC OROPHARYNG SCH ×2 (08:41→20:24)
[2018-10-01] MEDS: Senna/Docusate Sodium 8.6/50 MG Tablet PO SCH ×2 (08:42→21:39)
--- NOTE | 2018-10-01 11:25 | P.PNCC ---
Subjective Subjective Remarks/Hospital Course: 09/22: Overnight the patient underwent EGD 5 columns of esophageal varices was located but no bleeding was noted per large blood clot was noted in the fundus and the duodenum 0 hemoglobin and hematocrits continue last hemoglobin noted to be 7.9. The patient continues on Protonix and octreotide infusions currently. Patient was noted to have a low normal blood pressure on propofol infusion this is been discontinued. Versed and fentanyl infusions initiated to maintain ventilator synchrony. Patient noted to have acute kidney injury creatinine downtrending slightly peer nephrology has been consulted appreciate recommendations per patient with known ascites last known paracentesis approximately 4 months ago peer INR within normal limits invasive radiology has been consulted for possible paracentesis. 09/23: The patient underwent CT-guided paracentesis yesterday 5.2 L removed the patient's FiO2 requirements continue to decrease PEEP has been decreased down to 5 FiO2 of 40%. Urine output 770 cc in 24hr. Lactulose enemas have been added to medication regimen twice daily secondary to hyperammonemia. 09/24: Afebrile. Continues with low urine output. Ventilator settings stable. Went to A. fib with RVR. Laboratories pending. EKG pending. On fentanyl drip sedation 100 mcg an hour. 09/25: NG tube placed today. Remains on the ventilator. Withdraws to pain. Positive cough and gag. Ammonia level down to 84. 09/26: Currently resting in bed in no acute distress. Minimally responsive on the ventilator off all sedation. MRI of the brain currently pending. Ammonia level is currently 91. 09/27: Afebrile. More awake today. MRI brain revealed no acute findings. Currently on CPAP trial. 09/28: Decompressed stomach this a.m. Appears comfortable and tolerating CPAP trials. We will give 1 dose of furosemide attempt extubate today if minimal ascites evaluated. 09/29 Patient was extubated yesterday pulled his NGT and PIV overnight. Afebrile. s/p Paracentesis with removal 4L. Afebrile. 09/30 Patient is lying in bed in NAD. Afebrile. SUBJECTIVE: 10/01: Afebrile. Resting in bed in no acute distress. Tolerating clear liquid diet. Ammonia level is 34. Positive BM. Objective Vital Signs / I&O: Vital Signs 09/30/18 12:00 09/30/18 13:01 09/30/18 14:00 Temperature Pulse Rate 83 76 74 Respiratory Rate 27 H 24 Blood Pressure 134/67 140/65 Pulse Oximetry 80 L 09/30/18 14:01 09/30/18 15:00 09/30/18 16:00 Temperature Pulse Rate 74 76 76 Respiratory Rate 20 19 28 H Blood Pressure 120/57 L 135/60 Pulse Oximetry 82 L 09/30/18 16:18 09/30/18 17:01 09/30/18 18:00 Temperature Pulse Rate 75 76 76 Respiratory Rate 24 23 18 Blood Pressure 95/53 L 94/52 L Pulse Oximetry 09/30/18 19:00 09/30/18 20:00 09/30/18 20:20 Temperature 97.8 F Pulse Rate 75 79 78 Respiratory Rate 16 18 16 Blood Pressure 102/56 L 108/59 L Pulse Oximetry 87 L 95 98 09/30/18 21:00 09/30/18 22:00 09/30/18 23:00 Temperature Pulse Rate 82 80 81 Respiratory Rate 16 20 18 Blood Pressure 99/54 L 113/56 L 93/54 L Pulse Oximetry 96 97 10/01/18 00:00 10/01/18 00:01 10/01/18 01:00 Temperature Pulse Rate 87 85 79 Respiratory Rate 23 20 18 Blood Pressure 129/66 95/53 L Pulse Oximetry 89 L 88 L 95 10/01/18 02:00 10/01/18 03:00 10/01/18 04:00 Temperature Pulse Rate 83 81 83 Respiratory Rate 19 21 20 Blood Pressure 116/57 L 104/57 L 111/62 Pulse Oximetry 94 L 10/01/18 04:05 10/01/18 05:00 10/01/18 06:00 Temperature Pulse Rate 82 84 82 Respiratory Rate 20 18 Blood Pressure 115/60 Pulse Oximetry 10/01/18 08:00 10/01/18 10:00 10/01/18 10:35 Temperature Pulse Rate 80 86 84 Respiratory Rate 18 Blood Pressure Pulse Oximetry 10/01/18 10:36 Temperature Pulse Rate Respiratory Rate Blood Pressure Pulse Oximetry 96 Intake & Output 09/30/18 10/01/18 10/01/18 18:59 06:59 18:59 Intake Total 650 / 650 100 / 100 Balance 650 / 650 100 / 100 Weight 82 kg Intake: Oral 650 / 650 100 / 100 Other: # Voids 4 # Incontinent Voids 8 4 # Urine Diapers 4 Date of Last Bowel Movement 09/30/18 10/01/18 10/01/18 # Bowel Movements 1 # Incontinent Bowel Movements 1 Result Diagrams: 10/01/18 04:29 10/01/18 04:29 Other Results: Microbiology 09/23/18 20:30 Sputum - Endotracheal Gram Stain - Final 09/23/18 20:30 Sputum - Endotracheal Sputum Culture - Final Heavy growth normal respiratory kristel Imaging: Chest X-Ray 09/21/18 21:44 CONCLUSION: Endotracheal tube in good position. Bibasal airspace disease. No prior study for comparison. Paracentesis CT 09/22/18 14:08 CONCLUSION: 1. Uncomplicated CT Guided paracentesis. Abdomen/Bladder Ultrasound 09/23/18 00:00 CONCLUSION: 1. Echogenic kidneys consistent with medical renal disease. 2. Cirrhotic liver with ascites. 3. Small right pleural effusion, likely hepatic hydrothorax. Chest X-Ray 09/24/18 04:00 CONCLUSION: 1. Stable elevation of the right hemidiaphragm. Mild atelectatic changes in the right lung base. 2. Stable position of endotracheal tube. Head MRI 09/26/18 00:00 CONCLUSION: 1. Negative for acute process. Chest X-Ray 09/26/18 06:00 CONCLUSION: Clear lungs. Chest X-Ray 09/27/18 06:00 CONCLUSION: Clear lungs. Abdomen X-Ray 09/28/18 10:46 CONCLUSION: Nasogastric tube across the GE junction. There is persistent gaseous distention in spite of such. Clinical correlation suggested. Chest X-Ray 09/29/18 06:00 CONCLUSION: Diminished lung volumes with probable bibasilar atelectasis Objective Remarks: GENERAL: This is a well-developed well-nourished chronically ill-appearing resting in chair in NAD SKIN: Warm and dry. HEAD: Atraumatic. Normocephalic. EYES: Pupils equal and round. No scleral icterus. No injection or drainage. ENT: No nasal bleeding or discharge. Mucous membranes pink and moist. NECK: Trachea midline. No JVD. CARDIOVASCULAR: RRR. S1, S2. No S4. No murmur RESPIRATORY: No accessory muscle use. Clear to auscultation. Breath sounds equal bilaterally. GASTROINTESTINAL: Soft, non tender, distended, + BS. MUSCULOSKELETAL: Extremities without clubbing, cyanosis, or edema. No obvious deformities. Noted 1+ bilateral pedal edema NEUROLOGICAL: Cranial nerves II through XII grossly intact. Procedures: 09/21- EGD 09/22-CT guided paracentesis 2.5 L removed Assessment and Plan - Assessment and Plan Plan: NEURO/PSYCH: History of stroke with residual aphasia Monitor neuro status and avoid sedatives. MRI brain 09/26 without acute intracranial findings RESP: Acute respiratory failure Extubated 09/28 Continue with oxygen keep sats >92% Albuterol/ipratropium aerosols every 6 hours with albuterol aerosols every 2 hours as needed dyspnea Incentive spirometry while awake CV: Essential hypertension Atrial fibrillation currently normal sinus rhythm Monitor HR and BP keep MAP>65mmHg Metoprolol tartrate 12.5mg TID and as needed labetalol/Nitropaste for hypertension Restarted furosemide 40 mg p.o. daily. GI: Upper GI bleed secondary to esophageal varices now s/p banding Hx Hep C Cirrhosis Hepatocellular carcinoma s/p TACE procedure Recurrent ascites Hyperammonemia Hypoalbuminemia On cardiac diet Pantoprazole 40 mg IV twice daily Octreotide drip previously 25 mcg an hour discontinued 09/25. 09/21 GI consulted emergently, Dr. Beverly. Esophageal varices banded. Reportedly no active bleeding but unable to rule out gastric varices due to presence of clots in the stomach. 09/28- Paracentesis with removal 4.2L. 09/22paracentesis 5.2 L removed Xifaxan 550 twice daily and lactulose 30 cc 4 times daily. Ammonia level 34 10/01 FEN/RENAL: ?MART (unknown baseline creatinine) Hypernatremia Hypophosphatemia Monitor renal function, I/O's, electrolytes replacement per protocol. Will need K replacement today. Nephrology following. On furosemide 40mg daily, Albumin 25gms Q12 d/c IVF 30 mmol potassium phosphate IV times 1 now for recheck in a.m. ID: Tinea corporis Ciprofloxacin for SBP prophylaxis. Sputum culture no growth to date HEME: Acute blood loss anemia/normocytic Thrombocytopenia Coagulopathy with elevated INR Transfuse 3 units PRBCs, 1 unit FFP and 1 unit of platelets since admission Monitor CBC daily. Follow trends. Recheck CBC in a.m. ENDO: Sliding scale insulin aspart insulin/low regimen to maintain euglycemia every 6 hours TSH 0.163. Total T3 is low. Free T3 was/low normal. PROPH: SCDs for DVT prophylaxis. Pharmacologic DVT prophylaxis is contraindicated. Pantoprazole 40 mg IV twice daily ACCESS: PIV Level 2
--- NOTE | 2018-10-01 11:39 | P.PNNP ---
Subjective Interval history: Sitting up in bed. No acute events overnight. Patient is alert, not oriented. Creatinine stable at 1.5. <Sana Flores - Last Filed: 10/01/18 11:21> Physical Exam Vital signs: Vital Signs 09/30/18 12:00 09/30/18 13:01 09/30/18 14:00 Temperature Pulse Rate 83 76 74 Respiratory Rate 27 H 24 Blood Pressure 134/67 140/65 Pulse Oximetry 80 L 09/30/18 14:01 09/30/18 15:00 09/30/18 16:00 Temperature Pulse Rate 74 76 76 Respiratory Rate 20 19 28 H Blood Pressure 120/57 L 135/60 Pulse Oximetry 82 L 09/30/18 16:18 09/30/18 17:01 09/30/18 18:00 Temperature Pulse Rate 75 76 76 Respiratory Rate 24 23 18 Blood Pressure 95/53 L 94/52 L Pulse Oximetry 09/30/18 19:00 09/30/18 20:00 09/30/18 20:20 Temperature 97.8 F Pulse Rate 75 79 78 Respiratory Rate 16 18 16 Blood Pressure 102/56 L 108/59 L Pulse Oximetry 87 L 95 98 09/30/18 21:00 09/30/18 22:00 09/30/18 23:00 Temperature Pulse Rate 82 80 81 Respiratory Rate 16 20 18 Blood Pressure 99/54 L 113/56 L 93/54 L Pulse Oximetry 96 97 10/01/18 00:00 10/01/18 00:01 10/01/18 01:00 Temperature Pulse Rate 87 85 79 Respiratory Rate 23 20 18 Blood Pressure 129/66 95/53 L Pulse Oximetry 89 L 88 L 95 10/01/18 02:00 10/01/18 03:00 10/01/18 04:00 Temperature Pulse Rate 83 81 83 Respiratory Rate 19 21 20 Blood Pressure 116/57 L 104/57 L 111/62 Pulse Oximetry 94 L 10/01/18 04:05 10/01/18 05:00 10/01/18 06:00 Temperature Pulse Rate 82 84 82 Respiratory Rate 20 18 Blood Pressure 115/60 Pulse Oximetry 10/01/18 08:00 10/01/18 10:00 10/01/18 10:35 Temperature Pulse Rate 80 86 84 Respiratory Rate 18 Blood Pressure Pulse Oximetry 10/01/18 10:36 Temperature Pulse Rate Respiratory Rate Blood Pressure Pulse Oximetry 96 Intake & Output 09/30/18 10/01/18 10/01/18 18:59 06:59 18:59 Intake Total 650 / 650 100 / 100 Balance 650 / 650 100 / 100 Weight 82 kg Intake: Oral 650 / 650 100 / 100 Other: # Voids 4 # Incontinent Voids 8 4 # Urine Diapers 4 Date of Last Bowel Movement 09/30/18 10/01/18 10/01/18 # Bowel Movements 1 # Incontinent Bowel Movements 1 Narrative: GENERAL: Awake, and confused. SKIN: Warm and dry. NECK: Supple, trachea midline. No JVD CARDIOVASCULAR: Regular rate and rhythm without murmurs, gallops, or rubs. RESPIRATORY: Breath sounds equal bilaterally. No accessory muscle use. GASTROINTESTINAL: Abdomen soft, non-tender, distended. MUSCULOSKELETAL: No cyanosis, mild edema BACK: Nontender without obvious deformity. No CVA tenderness. - Urinary Catheter Management Indwelling Temp Sensing Catheter Cath placed during this visit: yes, but has since been removed by the nurse Urethral indwelling: Yes Reason for continuing: Hourly intake/output Insertion date: 09/21/18 Insertion time: 20:00 Removal date: 09/25/18 Removal time: 15:45 <Sana Flores - Last Filed: 10/01/18 11:21> Vital signs: Vital Signs 09/30/18 23:00 10/01/18 00:00 10/01/18 00:01 Temperature Pulse Rate 81 87 85 Respiratory Rate 18 23 20 Blood Pressure 93/54 L 129/66 Pulse Oximetry 97 89 L 88 L 10/01/18 01:00 10/01/18 02:00 10/01/18 03:00 Temperature Pulse Rate 79 83 81 Respiratory Rate 18 19 21 Blood Pressure 95/53 L 116/57 L 104/57 L Pulse Oximetry 95 94 L 10/01/18 04:00 10/01/18 04:05 10/01/18 05:00 Temperature Pulse Rate 83 82 84 Respiratory Rate 20 20 18 Blood Pressure 111/62 115/60 Pulse Oximetry 10/01/18 06:00 10/01/18 08:00 10/01/18 10:00 Temperature 98.7 F Pulse Rate 82 80 86 Respiratory Rate 16 Blood Pressure 113/56 L Pulse Oximetry 93 L 10/01/18 10:35 10/01/18 10:36 10/01/18 12:00 Temperature 98.8 F Pulse Rate 84 88 Respiratory Rate 18 20 Blood Pressure 106/59 L Pulse Oximetry 96 94 L 10/01/18 14:00 10/01/18 16:00 10/01/18 16:50 Temperature 98.3 F Pulse Rate 82 83 81 Respiratory Rate 19 20 Blood Pressure 115/60 Pulse Oximetry 10/01/18 18:00 10/01/18 21:26 Temperature Pulse Rate 76 80 Respiratory Rate 16 Blood Pressure Pulse Oximetry Intake & Output 10/01/18 10/01/18 10/02/18 06:59 18:59 06:59 Intake Total 100 / 100 600 / 600 Output Total 1400 / 1400 Balance 100 / 100 -800 / -800 Weight 82 kg Intake: Oral 100 / 100 600 / 600 Output: Urine 1400 / 1400 Other: # Voids 4 4 # Incontinent Voids 4 4 # Urine Diapers 4 4 Date of Last Bowel Movement 10/01/18 10/01/18 # Bowel Movements 1 1 # Incontinent Bowel Movements 1 1 - Urinary Catheter Management Indwelling Temp Sensing Catheter Cath placed during this visit: no <Lilly Balbuena - Last Filed: 10/01/18 22:05> Assessment and Plan - Assessment (1) Acute kidney failure Code(s): N17.9 - Acute kidney failure, unspecified Status: Acute (2) Respiratory failure Code(s): J96.90 - Respiratory failure, unspecified, unspecified whether with hypoxia or hypercapnia Status: Acute (3) Hepatocellular carcinoma Code(s): C22.0 - Liver cell carcinoma Status: Acute - Plan Patient with Chronic liver disease, and Hepatocellular carcinoma. Had GI bleeding and respiratory failure. Avoid nephrotoxins Creatinine is now 1.5, adequate urinary output Continue lasix tolerating well. Follow the urine out put and BMP <Sana Flores - Last Filed: 10/01/18 11:21> - Assessment (1) Acute kidney failure Code(s): N17.9 - Acute kidney failure, unspecified Status: Acute (2) Respiratory failure Code(s): J96.90 - Respiratory failure, unspecified, unspecified whether with hypoxia or hypercapnia Status: Acute (3) Hepatocellular carcinoma Code(s): C22.0 - Liver cell carcinoma Status: Acute - Plan Patient seen and examined, agree with above. Non oliguric, Creatinine is stable. Avoid Nephrotoxins. <Lilly Balbuena - Last Filed: 10/01/18 22:05>
[2018-10-01] MEDS ORDERED: Potassium Phosphate Inj 30 MMOL in Sodium Chlor 0.9% Inj 250 ML IV.SIG ONE (13:00)
[2018-10-02] MEDS: rifAXIMin 550 MG Tablet PO SCH ×2 (02:41→15:31)
[2018-10-02 03:38] LABS: Baso % (Auto) 0.7 % (0.0-2.0); Eos # (Auto) 0.6 th/mm3 (0.0-0.4); Eos % (Auto) 7.9 % (0.0-4.0); Hematocrit 22.6 % (39.0-51.0); Hemoglobin 7.5 gm/dL (13.0-17.0); Lymph # (Auto) 0.5 th/mm3 (1.0-4.8); Lymph % (Auto) 6.7 % (9.0-44.0); Mean Corpuscular HGB Conc 33.3 % (32.0-36.0); Mean Corpuscular Hemoglobin 29.1 pg (27.0-34.0); Mean Corpuscular Volume 87.4 fL (80.0-100.0); Mean Platelet Volume 9.7 fL (7.0-11.0); Mono # (Auto) 0.7 th/mm3 (0.0-0.9); Mono % (Auto) 9.8 % (0.0-8.0); Neut # (Auto) 5.3 th/mm3 (1.8-7.7); Neut % (Auto) 74.9 % (16.0-70.0); Platelet Count 63 th/mm3 (150-450); Red Blood Count 2.59 mil/mm3 (4.50-5.90); Red Cell Distribution Width 18.8 % (11.6-17.2); White Blood Count 7.1 th/mm3 (4.0-11.0)
[2018-10-02 04:04] LABS: Albumin 2.6 g/dL (3.4-5.0); Anion Gap 7 meq/L (5-15); Aspartate Aminotransferase 56 U/L (15-37); Blood Urea Nitrogen 40 mg/dL (7-18); Chloride 111 meq/L (98-107); Glomerular Filtration Rate 42 mL/min (>89); Glucose,Random 105 mg/dL (74-106); Magnesium 1.9 mg/dL (1.5-2.5); Potassium 3.9 meq/L (3.5-5.1); Sodium 142 meq/L (136-145)
[2018-10-02 04:05] LABS: Alanine Aminotransferase 52 U/L (12-78); Phosphorus 2.6 mg/dL (2.5-4.9)
[2018-10-02 04:07] LABS: Alkaline Phosphatase 93 U/L (45-117); Total Protein 5.1 g/dL (6.4-8.2)
[2018-10-02] MEDS: Oral Hygiene Kit OROPHARYNG SCH ×3 (04:24→15:31)
[2018-10-02 04:30] LABS: Acanthocytes Occ; Ovalocytes 1+; Platelet Morphology Normal (Normal)
[2018-10-02] MEDS: Metoprolol Tartrate 25 MG Tablet PO SCH ×3 (09:04→17:33)
[2018-10-02] MEDS: Furosemide 40 MG Tablet PO SCH (09:05)
[2018-10-02] MEDS: Senna/Docusate Sodium 8.6/50 MG Tablet PO SCH ×2 (09:06→21:19)
[2018-10-02] MEDS: Ciprofloxacin 500 MG Tablet PO SCH ×2 (09:08→21:15)
[2018-10-02] MEDS: Artificial Tears Opth Drops 15 ML Bottle EACH EYE SCH ×2 (09:08→15:34)
[2018-10-02] MEDS: Clotrimazole 1% Cream 15 GM Tube TOPICAL SCH ×2 (09:08→21:19)
[2018-10-02] MEDS: Pantoprazole Inj 40 MG Vial IV.PUSH SCH ×2 (09:08→21:19)
[2018-10-02] MEDS: Chlorhexidine 0.12% Oral Kit 15 ML UDC OROPHARYNG SCH ×2 (09:09→21:15)
--- NOTE | 2018-10-02 10:34 | P.PNIM ---
Subjective Interval history: Follow-up for hepatitis C, liver cirrhosis, esophageal varices. Patient is currently resting in bed. Earlier he had large loose bowel movement. He reports no chest pain, shortness of breath. However he thinks that he is 27 years old and lives with his mother. Physical Exam Vital signs: Vital Signs 10/01/18 10:35 10/01/18 10:36 10/01/18 12:00 Temperature 98.8 F Pulse Rate 84 88 Respiratory Rate 18 20 Blood Pressure 106/59 L Pulse Oximetry 96 94 L 10/01/18 14:00 10/01/18 16:00 10/01/18 16:50 Temperature 98.3 F Pulse Rate 82 83 81 Respiratory Rate 19 20 Blood Pressure 115/60 Pulse Oximetry 10/01/18 18:00 10/01/18 20:00 10/01/18 21:26 Temperature 98.5 F Pulse Rate 76 74 80 Respiratory Rate 20 16 Blood Pressure 135/60 Pulse Oximetry 90 L 10/01/18 22:00 10/02/18 00:00 10/02/18 02:00 Temperature 98.3 F Pulse Rate 80 77 78 Respiratory Rate 23 Blood Pressure 108/62 Pulse Oximetry 100 10/02/18 04:00 10/02/18 04:12 10/02/18 06:00 Temperature 98.7 F Pulse Rate 79 78 85 Respiratory Rate 20 22 Blood Pressure 143/61 H Pulse Oximetry 96 10/02/18 08:00 10/02/18 08:25 Temperature 98.6 F Pulse Rate 83 84 Respiratory Rate 22 18 Blood Pressure 92/52 L Pulse Oximetry 94 L Intake & Output 10/01/18 10/02/18 10/02/18 18:59 06:59 18:59 Intake Total 600 / 600 150 / 150 Output Total 1400 / 1400 150 / 150 Balance -800 / -800 0 / 0 Weight 82.1 kg Intake: Oral 600 / 600 150 / 150 Output: Urine 1400 / 1400 150 / 150 Other: # Voids 4 1 # Incontinent Voids 4 # Urine Diapers 4 Date of Last Bowel Movement 10/01/18 10/02/18 10/02/18 # Bowel Movements 1 3 # Incontinent Bowel Movements 1 2 Narrative: GENERAL: Alert, somewhat disoriented, no acute distress, disheveled appearance. SKIN: Warm and dry. HEAD: Normocephalic. EYES: No scleral icterus. No injection or drainage. NECK: Supple, trachea midline. No JVD or lymphadenopathy. CARDIOVASCULAR: Regular rate and rhythm without murmurs, gallops, or rubs. RESPIRATORY: Breath sounds equal bilaterally. No accessory muscle use. GASTROINTESTINAL: Abdomen firm, distended. MUSCULOSKELETAL: No cyanosis, or edema. BACK: Nontender without obvious deformity. No CVA tenderness. Urinary Catheter Management Indwelling Temp Sensing Catheter: Cath placed during this visit: yes, but has since been removed by the nurse Urethral indwelling: Yes Reason for continuing: Hourly intake/output Insertion date: 09/21/18 Insertion time: 20:00 Removal date: 09/25/18 Removal time: 15:45 Results Labs CBC & Chem 7: 10/02/18 03:30 10/02/18 03:30 Imaging Imaging: Chest X-Ray 09/21/18 21:44 CONCLUSION: Endotracheal tube in good position. Bibasal airspace disease. No prior study for comparison. Paracentesis CT 09/22/18 14:08 CONCLUSION: 1. Uncomplicated CT Guided paracentesis. Abdomen/Bladder Ultrasound 09/23/18 00:00 CONCLUSION: 1. Echogenic kidneys consistent with medical renal disease. 2. Cirrhotic liver with ascites. 3. Small right pleural effusion, likely hepatic hydrothorax. Chest X-Ray 09/24/18 04:00 CONCLUSION: 1. Stable elevation of the right hemidiaphragm. Mild atelectatic changes in the right lung base. 2. Stable position of endotracheal tube. Head MRI 09/26/18 00:00 CONCLUSION: 1. Negative for acute process. Chest X-Ray 09/26/18 06:00 CONCLUSION: Clear lungs. Chest X-Ray 09/27/18 06:00 CONCLUSION: Clear lungs. Abdomen X-Ray 09/28/18 10:46 CONCLUSION: Nasogastric tube across the GE junction. There is persistent gaseous distention in spite of such. Clinical correlation suggested. Chest X-Ray 09/29/18 06:00 CONCLUSION: Diminished lung volumes with probable bibasilar atelectasis Assessment and Plan Plan Mr. Awad is a 78-year-old male with a history of hepatocellular carcinoma, hepatitis C, liver cirrhosis, esophageal varices, prior stroke who was admitted to the hospital on 09/22/2018 due to vomiting blood. Patient was intubated to protect airway. EGD was done upon admission and showed large blood clot/blood in the fundus. Patient was kept on octreotide and Protonix. Patient was extubated on 09/28/2018. Patient's care was transferred to hospitalist service on 10/02/2018. Acute hepatic encephalopathy Liver cirrhosis Hepatitis C History of hepatocellular carcinoma Esophageal varices GI bleed due to varices Acute anemia due to GI bleed Continue pantoprazole 40 mg IV twice a day. Octreotide discontinued on 09/25/2018. Continue ciprofloxacin for SBP and esophageal varices prophylaxis. Patient underwent paracentesis on 09/22/2018 as well as 09/28/2018. Continue lactulose and rifaximin Patient may need another paracentesis. We will consult palliative care. I believe patient would be an appropriate candidate for hospice. Hemoglobin today 7.5. Will transfuse if it goes below 7.0. Acute kidney injury Possibly hepatorenal syndrome type II Nephrology following. Currently creatinine somewhat stable around 1.5-1.6. History of stroke Atrial fibrillation Currently in normal sinus rhythm. Patient has residual aphasia due to stroke. Full code. SCDs. Progress Note: Quality VTE Deep Vein Thrombosis/Pulmonary Embolism Present on Admission: No
--- NOTE | 2018-10-02 11:15 | P.CONPAL ---
Consult Service: Palliative Care Requesting Physician: Yancy Edgar Reason for Consult: a. To assist with evaluation and management of symptoms including: Dyspnea, agitation b. To assist medical decision maker(s) with: better understanding of current medical conditions; weighing benefits/burdens of medical treatment options; making medical treatment decisions. Primary Care Provider: Physician [facility] History of Present Illness History of Present Illness: This is a 78-year-old male brought to the emergency room 09/21/2018 by his daughter and son-in-law for hematemesis. They state they were visiting a cousin when the patient started to vomit up some blood and passed out on the front porch. At the same time he was incontinent of urine and stool. Patient was cleaned by the family and put back in the car at which time the patient woke up and they started driving him home. On the way home daughter noticed that his eyes had rolled back in his head and had vomited blood again and at that point decided to bring him to the emergency room on arrival he was awake but confused and kept saying that he had vomited "chilly". Daughter reports a history of liver cancer and liver cirrhosis status post 1 round of chemo radiation and chemo embolization in 2018 at the [facility] in [place], [place]. He had just moved to this area to be with her approximately 2 months ago and had not yet established medical care here. He had been receiving antibiotic and steroid for a generalized rash. There is no known previous diagnosis of varices however the daughter noted multiple paracentesis for ascites. He presented with dependent edema and a complaint of "something in his throat that he is trying to cough out". He supposed he was coming down with a cold. No history of melena. Dr. Farley was consulted as the GI contract associate and patient was sent emergently for an EGD. He remained hemodynamically stable with infusion of 1 L of fluid and 2 units of packed red blood cells. Clinical data on admission: * WBC 9.3, hemoglobin 8.0, hematocrit 23.1, platelets 127, PT 15.2, INR 1.5, APTT 32.9, fibrinogen 103, sodium 142, potassium 3.5, BUN 52, creatinine 1.92, random glucose 153, calcium 8.0, total bilirubin 1.1, AST 45, ALT 36, alk phos 76, ammonia 43, protein 5.2, albumin 2.2. ABG pH 7.32, PCO2 47, PaO2 97, HCO3 23, base excess -1.8 on mechanical ventilator at 50% FiO2. * Emergent EGD showed large blood clot, blood in the fundus. Normal antrum. Blood in the duodenum. Retroflexed views revealed large blood clot. Recommended to continue intubation, FFP/platelets/IV octreotide/Protonix. * Chest x-ray showed well-placed ET tube with bibasilar airspace disease. No prior study for comparison. Patient is awake, alert in bed, restless with mild agitation. He is able to make his needs known and states he wants to get up out of bed so he can use the bathroom normally. His is at bedside who refers medical decisions to their daughter, Tricia, who has been taking care of him for the last year. He denies any significant discomfort other than wanting to get out of bed. While history states he has mild aphasia, his speech is understandable, but he does have difficulty sometimes searching for the correct word he wants. . Function/Cognitive Trajectory: The daughter states that he has become more sedentary since developing worsening ascites was previously very active. His appetite has declined with distention with an increase in dyspnea. . Review of Systems Respiratory: Reports shortness of breath Gastrointestinal: Reports feeling full early Psychiatric: Reports anxiety PMFSH - History History Provided By: Patient, Family Member - Medical History Medical History: Medical History (Last Reviewed 09/26/18 @ 14:17 by Chano Gutierrez MD) Aphasia Cirrhosis History of stroke Liver cancer - Surgical History Surgical History: Surgical History (Last Reviewed 09/26/18 @ 14:17 by Chano Gutierrez MD) Hx of appendectomy - Family History Family History: Family History (Last Reviewed 09/26/18 @ 14:17 by Chano Gutierrez MD) Other Family history unknown - Tobacco History Tobacco Use In Past 30 Days: Yes Smoking Status: Former smoker Tobacco Type: Cigarettes - Alcohol History How Often Do You Have a Drink Containing Alcohol: Never (quit 56) - Substance Use History Substance History: Past History - Substance Use Type Alcohol Last Used: 5 years ago - Immunization History Tetanus Immunization: Unable to Assess Hx Influenza Vaccine This Season: Unable to Assess Medications and Allergies Active Medications: Active Medications Al Hydroxide/Mg Hydroxide (Milk Of Magnesia Liq) 30 ml PO Q12H PRN PRN Reason: Mild Constipation Albuterol (Albuterol Neb (Prn)) 2.5 mg NEB Q2HR NEB PRN PRN Reason: DYSPNEA Albuterol (Duoneb Neb (Flavio)) 1 ampul NEB Q6HR NEB [facility] Last Admin: 10/02/18 08:24 Dose: 1 ampul Artificial Tears (Tears Naturale Opth Drops) 1 drop EACH EYE Q8H [facility] Last Admin: 10/02/18 09:08 Dose: 1 drop Bisacodyl (Dulcolax Supp) 10 mg RECTAL DAILY PRN PRN Reason: SEVERE CONSITIPATION Chlorhexidine Gluconate (Peridex 0.12% Oral Kit) 15 ml OROPHARYNG BID@0800, 2000 [facility] Last Admin: 10/02/18 09:09 Dose: 15 ml Ciprofloxacin HCl (Cipro) 500 mg PO Q12HR [facility] Last Admin: 10/02/18 09:08 Dose: 500 mg Clotrimazole (Lotrimin 1% Cream) 1 applicatio TOPICAL BID [facility] Last Admin: 10/02/18 09:08 Dose: 1 applicatio Dextrose (D50w Vial) 50 ml IV.PUSH UNSCH PRN PRN Reason: PER HYPOGLYCEMIA PROTOCOL Furosemide (Lasix) 40 mg PO DAILY [facility] Last Admin: 10/02/18 09:05 Dose: 40 mg Glucagon (Glucagon Inj) 1 mg OTHER PRN PRN PRN Reason: for Hypoglycemia Protocol Magnesium Sulfate 2 gm/ Sodium (Chloride) 100 mls @ 50 mls/hr IV.SIG UNSCH PRN PRN Reason: For Magnesium 1.2 - 1.6 mg/dL Potassium Chloride (Kcl 40 Meq Premix Inj) 40 meq in 100 mls @ 25 mls/hr IV.SIG Q2H PRN PRN Reason: For Potassium 2.8 - 3.2 mEq/L Potassium Chloride (Kcl 20 Meq Premix Inj) 20 meq in 100 mls @ 50 mls/hr IV.SIG Q2H PRN PRN Reason: For Potassium 3.3 - 3.5 mEq/L Potassium Chloride (Kcl 40 Meq Premix Inj) 40 meq in 100 mls @ 25 mls/hr IV.SIG UNSCH PRN PRN Reason: For Potassium 3.3 - 3.5 mEq/L Potassium Chloride (Kcl 20 Meq Premix Inj) 20 meq in 100 mls @ 50 mls/hr IV.SIG Q2H PRN PRN Reason: For Potassium 2.8 - 3.2 mEq/L Potassium Phosphate 30 mmol/ (Sodium Chloride) 260 mls @ 42 mls/hr IV.SIG UNSCH PRN PRN Reason: SEE LABEL COMMENTS Last Infusion: 09/26/18 18:07 Dose: Infused Sodium Phosphate 30 mmol/ (Sodium Chloride) 260 mls @ 42 mls/hr IV.SIG UNSCH PRN PRN Reason: For Phosphorus < 2.5 mg/dL Magnesium Sulfate 4 gm/ Sodium (Chloride) 100 mls @ 50 mls/hr IV.SIG UNSCH PRN PRN Reason: For Magnesium 0.9 - 1.1 mg/dL Insulin Aspart (Novolog Insulin Correctional Sugar Inj) 0 unit SQ Q6HR [facility]; Protocol Last Admin: 10/01/18 23:51 Dose: Not Given Labetalol HCl (Trandate Inj) 10 mg IV.PUSH Q1H PRN PRN Reason: Sbp>165, Dbp>90, Hr>65 Last Admin: 09/27/18 10:39 Dose: 10 mg Lactulose (Lactulose Liq) 30 ml NG/OG QID [facility] Last Admin: 10/02/18 09:04 Dose: 30 ml Magnesium Oxide (Mag-Ox) 800 mg PO UNSCH PRN PRN Reason: For Magnesium 1.2 - 1.6 mg/dL Metoprolol Tartrate (Lopressor) 12.5 mg PO TID [facility] Last Admin: 10/02/18 09:04 Dose: 12.5 mg Miscellaneous Medication () 1 each OROPHARYNG 0000,0400,1200,1600 [facility] Last Admin: 10/02/18 04:24 Dose: Not Given Nitroglycerin (Nitro-Bid 2% Oint) 2 inch TOPICAL Q6HR PRN PRN Reason: Sbp>165, Dbp>90 Ondansetron HCl (Zofran Inj) 4 mg IV.PUSH Q6H PRN PRN Reason: NAUSEA OR VOMITING Pantoprazole Sodium (Protonix Inj) 40 mg IV.PUSH Q12H [facility] Last Admin: 10/02/18 09:08 Dose: 40 mg Potassium Chloride (Kcl Liq) 40 meq PO UNSCH PRN PRN Reason: Potassium level 3.3-3.5 mEq/L Potassium Chloride (Kcl Liq) 40 meq PO UNSCH PRN PRN Reason: POTASSIUM LESS THAN 3.5 Potassium Phosphate (K-Phos Original) 2,000 mg PO Q4H PRN PRN Reason: Phosphorus Less Than 2.5 mg/dL Last Admin: 10/01/18 07:38 Dose: 2,000 mg Potassium Phosphate (K-Phos Original) 2,000 mg PO UNSCH PRN PRN Reason: SEE LABEL COMMENTS Rifaximin (Xifaxan) 550 mg PO Q12H [facility] Last Admin: 10/02/18 02:41 Dose: 550 mg Senna/Docusate Sodium (Tonya-Colace) 1 tab PO BID [facility] Last Admin: 10/02/18 09:06 Dose: Not Given Sennosides (Senokot) 17.2 mg PO Q12H PRN PRN Reason: Moderate Constipation Sodium Chloride (Ns Flush) 2 ml IV.FLUSH BID [facility] Last Admin: 10/02/18 09:06 Dose: 2 ml Sodium Chloride (Ns Flush) 2 ml IV.FLUSH PRN PRN PRN Reason: FLUSH AFTER USING IV ACCESS Spironolactone (Aldactone) 100 mg PO DAILY [facility] Last Admin: 10/02/18 09:04 Dose: 100 mg Allergies Allergy/AdvReac Type Severity Reaction Status Date / Time No Known Allergies Allergy Verified 09/21/18 19:20 Advance Directives Living Will: Unknown Healthcare Surrogate: Yes Health Care Surrogate Name and Number: Tricia King Power of Scientific Database Curator: Unknown Physical Exam Vital Signs: Vital Signs - 24 hr 10/01/18 12:00 10/01/18 14:00 10/01/18 16:00 Temperature 98.8 F 98.3 F Pulse Rate 88 82 83 Respiratory Rate 20 19 Blood Pressure 106/59 L 115/60 Pulse Oximetry 94 L 10/01/18 16:50 10/01/18 18:00 10/01/18 20:00 Temperature 98.5 F Pulse Rate 81 76 74 Respiratory Rate 20 20 Blood Pressure 135/60 Pulse Oximetry 90 L 10/01/18 21:26 10/01/18 22:00 10/02/18 00:00 Temperature 98.3 F Pulse Rate 80 80 77 Respiratory Rate 16 23 Blood Pressure 108/62 Pulse Oximetry 100 10/02/18 02:00 10/02/18 04:00 10/02/18 04:12 Temperature 98.7 F Pulse Rate 78 79 78 Respiratory Rate 20 22 Blood Pressure 143/61 H Pulse Oximetry 96 10/02/18 06:00 10/02/18 08:00 10/02/18 08:25 Temperature 98.6 F Pulse Rate 85 83 84 Respiratory Rate 22 18 Blood Pressure 92/52 L Pulse Oximetry 94 L I&O: Intake & Output 09/30/18 10/01/18 10/02/18 10/03/18 06:59 06:59 06:59 06:59 Intake Total 1200 / 1200 750 / 750 750 / 750 Output Total 225 / 225 1550 / 1550 Balance 975 / 975 750 / 750 -800 / -800 Weight 182 lb 5.156 oz 180 lb 12.465 oz 180 lb 15.992 oz Physical Exam: CONSTITUTIONAL/GENERAL: This is an adequately nourished patient, in no apparent distress. TUBES/LINES/DRAINS: PIV SKIN: Slight jaundice, no rashes, or lesions. Ecchymoses on upper extremities and left flank. No wounds seen anteriorly. Skin temperature appropriate. Not diaphoretic. HEAD: Atraumatic. Normocephalic. EYES: Pupils equal and round and reactive. Extraocular motions intact. No scleral icterus. No injection or drainage. Fundi not examined. ENT: Hearing grossly normal. Nose without bleeding or purulent drainage. Throat without visible erythema, exudates, masses, or lesions. NECK: Trachea midline. Supple, nontender. No palpable thyroid enlargement or nodularity. CARDIOVASCULAR: Regular rate and rhythm without murmurs, gallops, or rubs. No JVD. Peripheral pulses symmetric. RESPIRATORY/CHEST: Symmetric, unlabored respirations. Clear to auscultation. Breath sounds equal, diminished bilaterally. Faint bibasilar crackles. GASTROINTESTINAL: Abdomen distended, firm, nontender to palpation. Unable to appreciate organomegaly due to ascites. GENITOURINARY: Without palpable bladder distension. MUSCULOSKELETAL: Extremities without clubbing, cyanosis, or edema. No joint tenderness or effusion noted. No calf tenderness. No mottling or clubbing. LYMPHATICS: No palpable cervical or supraclavicular adenopathy. NEUROLOGICAL: Awake and alert. Motor and sensory grossly within normal limits. Follows commands. Moves all extremities. PSYCHIATRIC: Some mild agitation/anxiety/restlessness, no apparent hallucinations or other psychotic thought process. . Diagnostic Tests Laboratory: Laboratory Results - last 72 hr 09/29/18 09/29/18 09/29/18 12:58 17:08 23:36 WBC RBC Hgb Hct MCV MCH MCHC RDW Plt Count MPV Prelim Diff (Auto) Neut % (Auto) Lymph % (Auto) Glenn % (Auto) Eos % (Auto) Baso % (Auto) Neut # (Auto) Lymph # (Auto) Glenn # (Auto) Eos # (Auto) Baso # (Auto) WBC Differential Diff Scan Differential Comment Platelet Estimate Platelet Morphology Ovalocytes Acanthocytes (Spur) Keratocytes APTT Sodium Potassium Chloride Carbon Dioxide Anion Gap BUN Creatinine Estimated GFR POC Glucose 115 H 101 107 Random Glucose Calcium Phosphorus Magnesium Total Bilirubin AST ALT Alkaline Phosphatase Ammonia Total Protein Albumin 09/30/18 09/30/18 09/30/18 05:21 05:31 05:31 WBC 5.5 RBC 2.60 L Hgb 7.7 L Hct 22.5 L MCV 86.8 MCH 29.5 MCHC 34.0 RDW 17.5 H Plt Count 49 L MPV 9.6 Prelim Diff (Auto) Slide review pending Neut % (Auto) 70.5 H Lymph % (Auto) 7.9 L Glenn % (Auto) 11.7 H Eos % (Auto) 9.4 H Baso % (Auto) 0.5 Neut # (Auto) 3.9 Lymph # (Auto) 0.4 L Glenn # (Auto) 0.6 Eos # (Auto) 0.5 H Baso # (Auto) 0.0 WBC Differential . Diff Scan Auto diff confirmed Differential Comment . Platelet Estimate Platelet Morphology Ovalocytes 1+ H Acanthocytes (Spur) Occ H Keratocytes Occ H APTT Sodium 146 H Potassium 3.3 L Chloride 114 H Carbon Dioxide 26.1 Anion Gap 6 BUN 43 H Creatinine 1.50 H Estimated GFR 46 L POC Glucose 105 Random Glucose 91 Calcium 8.5 Phosphorus 2.2 L Magnesium 2.3 Total Bilirubin 2.5 H AST 67 H ALT 50 Alkaline Phosphatase 85 Ammonia Total Protein 5.3 L Albumin 2.7 L 09/30/18 09/30/18 10/01/18 12:51 16:16 01:08 WBC RBC Hgb 8.0 L Hct 24.1 L MCV MCH MCHC RDW Plt Count MPV Prelim Diff (Auto) Neut % (Auto) Lymph % (Auto) Glenn % (Auto) Eos % (Auto) Baso % (Auto) Neut # (Auto) Lymph # (Auto) Glenn # (Auto) Eos # (Auto) Baso # (Auto) WBC Differential Diff Scan Differential Comment Platelet Estimate Platelet Morphology Ovalocytes Acanthocytes (Spur) Keratocytes APTT Sodium Potassium Chloride Carbon Dioxide Anion Gap BUN Creatinine Estimated GFR POC Glucose 127 H 94 Random Glucose Calcium Phosphorus Magnesium Total Bilirubin AST ALT Alkaline Phosphatase Ammonia Total Protein Albumin 10/01/18 10/01/18 10/01/18 04:29 04:29 04:29 WBC 6.7 RBC 2.84 L Hgb 8.3 L Hct 24.8 L MCV 87.5 MCH 29.2 MCHC 33.4 RDW 18.0 H Plt Count 51 L MPV 9.5 Prelim Diff (Auto) Slide review pending Neut % (Auto) 73.3 H Lymph % (Auto) 7.0 L Glenn % (Auto) 9.8 H Eos % (Auto) 9.3 H Baso % (Auto) 0.6 Neut # (Auto) 4.9 Lymph # (Auto) 0.5 L Glenn # (Auto) 0.7 Eos # (Auto) 0.6 H Baso # (Auto) 0.0 WBC Differential . Diff Scan Auto diff confirmed Differential Comment . Platelet Estimate Low L Platelet Morphology Enlarged H Ovalocytes Acanthocytes (Spur) Keratocytes APTT Sodium 147 H Potassium 3.5 Chloride 113 H Carbon Dioxide 25.4 Anion Gap 9 BUN 42 H Creatinine 1.54 H Estimated GFR 44 L POC Glucose Random Glucose 85 Calcium 8.0 L Phosphorus 1.9 L Magnesium 2.0 Total Bilirubin 3.1 H AST 70 H ALT 52 Alkaline Phosphatase 95 Ammonia 34 H Total Protein 5.5 L Albumin 2.9 L 10/01/18 10/01/18 10/01/18 05:02 15:04 23:25 WBC RBC Hgb Hct MCV MCH MCHC RDW Plt Count MPV Prelim Diff (Auto) Neut % (Auto) Lymph % (Auto) Glenn % (Auto) Eos % (Auto) Baso % (Auto) Neut # (Auto) Lymph # (Auto) Glenn # (Auto) Eos # (Auto) Baso # (Auto) WBC Differential Diff Scan Differential Comment Platelet Estimate Platelet Morphology Ovalocytes Acanthocytes (Spur) Keratocytes APTT Sodium Potassium Chloride Carbon Dioxide Anion Gap BUN Creatinine Estimated GFR POC Glucose 107 147 H 119 H Random Glucose Calcium Phosphorus Magnesium Total Bilirubin AST ALT Alkaline Phosphatase Ammonia Total Protein Albumin 10/02/18 10/02/18 10/02/18 03:30 03:30 03:30 WBC 7.1 RBC 2.59 L Hgb 7.5 L Hct 22.6 L MCV 87.4 MCH 29.1 MCHC 33.3 RDW 18.8 H Plt Count 63 L MPV 9.7 Prelim Diff (Auto) Slide review pending Neut % (Auto) 74.9 H Lymph % (Auto) 6.7 L Glenn % (Auto) 9.8 H Eos % (Auto) 7.9 H Baso % (Auto) 0.7 Neut # (Auto) 5.3 Lymph # (Auto) 0.5 L Glenn # (Auto) 0.7 Eos # (Auto) 0.6 H Baso # (Auto) 0.0 WBC Differential . Diff Scan Auto diff confirmed Differential Comment . Platelet Estimate Low L Platelet Morphology Normal Ovalocytes 1+ H Acanthocytes (Spur) Occ H Keratocytes Occ H APTT 44.7 H Sodium 142 Potassium 3.9 Chloride 111 H Carbon Dioxide 24.0 Anion Gap 7 BUN 40 H Creatinine 1.62 H Estimated GFR 42 L POC Glucose Random Glucose 105 Calcium 8.0 L Phosphorus 2.6 Magnesium 1.9 Total Bilirubin 2.8 H AST 56 H ALT 52 Alkaline Phosphatase 93 Ammonia Total Protein 5.1 L Albumin 2.6 L 10/02/18 10/02/18 03:30 05:40 WBC RBC Hgb Hct MCV MCH MCHC RDW Plt Count MPV Prelim Diff (Auto) Neut % (Auto) Lymph % (Auto) Glenn % (Auto) Eos % (Auto) Baso % (Auto) Neut # (Auto) Lymph # (Auto) Glenn # (Auto) Eos # (Auto) Baso # (Auto) WBC Differential Diff Scan Differential Comment Platelet Estimate Platelet Morphology Ovalocytes Acanthocytes (Spur) Keratocytes APTT Sodium Potassium Chloride Carbon Dioxide Anion Gap BUN Creatinine Estimated GFR POC Glucose 101 Random Glucose Calcium Phosphorus Magnesium Total Bilirubin AST ALT Alkaline Phosphatase Ammonia 73 H Total Protein Albumin Result Diagrams: 10/02/18 03:30 10/02/18 03:30 Microbiology: Microbiology 09/23/18 20:30 Sputum - Endotracheal Gram Stain - Final 09/23/18 20:30 Sputum - Endotracheal Sputum Culture - Final Heavy growth normal respiratory kristel Imaging: ITS Impressions Paracentesis CT 09/22/18 14:08 CONCLUSION: 1. Uncomplicated CT Guided paracentesis. Abdomen/Bladder Ultrasound 09/23/18 00:00 CONCLUSION: 1. Echogenic kidneys consistent with medical renal disease. 2. Cirrhotic liver with ascites. 3. Small right pleural effusion, likely hepatic hydrothorax. Head MRI 09/26/18 00:00 CONCLUSION: 1. Negative for acute process. Abdomen X-Ray 09/28/18 10:46 CONCLUSION: Nasogastric tube across the GE junction. There is persistent gaseous distention in spite of such. Clinical correlation suggested. Chest X-Ray 09/29/18 06:00 CONCLUSION: Diminished lung volumes with probable bibasilar atelectasis Procedures: 09/21/2018: EGD 09/22/2018: Paracentesis 4200 mL Patient/Family Conference Present at Family Conference: Offered family conference with and daughter. declined and stated that her daughter makes all the medical decisions. Reviewed clinical course, interventions attempted, goals of medical treatment patient's current clinical status, past medical, social, family, psychosocial history with the daughter. 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 I inquired regarding advanced directives and healthcare surrogate, however the patient had not completed that previously. The states she has a power of sports attorney but it is not available. After the conference, this was again discussed with the patient who states that he wants his daughter to make his decisions and a healthcare surrogate was completed and witnessed. The was at bedside and was agreeable to this. One copy placed on the chart and one copy given to the daughter. Reviewed palliative care purpose and focus as regarding symptom management and support in formulating goals of care. Reviewed CODE STATUS and advanced directives, as well as the below listed items. Provided palliative care contact information. All questions answered to the best of my ability. . Issues Discussed: * Palliative care role, purpose, approach * Additional medical, psychosocial, and spiritual history * Patients general health, functional status, and cognitive changes in the months leading up to the current hospitalization * Patient/family understanding of the current medical problems * Patient/family understanding of prognosis * Patients goals of care as best understood from advance directives and/or conversations and/or values * Current medical treatment options and benefits/burdens of those options * Likely scenarios comparing ongoing aggressive care with a transition to comfort measures only * Questions answered to the best of my ability * Palliative care contact information provided Assessment and Plan Pertinent Non-Medical Issues: Psychosocial: He was born in [place] and had been living in [place] with his , but came to [place] where his daughter lives for support during his worsening physical condition. He was previously and has 1 child from that union. Currently not in contact. Spiritual: Trim Operator available. Legal: is reportedly the POA but no paperwork available. Patient elected his daughter, Tricia, as his HCS at this admission. Ethical issues impacting care: None noted. . Important Contacts: Daughter: Tricia King . Prognosis: His prognosis is guarded. He is of advanced age with severe, recurrent ascites. He has a history of liver cirrhosis, alcohol related, hepatitis C status post treatment and liver cancer status post 1 treatment of chemo and radiation. His ammonia level remains elevated lactulose 4 times daily and rifaximin twice daily. His INR is elevated at 1.5 and bilirubin elevated at 2.8. Per the daughter no further treatment is planned by the [place]. He is at significant risk for recurrent hospitalizations, complications and decline. . Code Status: Full Code Plan: PLAN: Legal decision maker: At this time the patient appears capacitated for decision-making, however refers all medical decision making to his daughter. He has completed a healthcare surrogate naming her is medical decision-maker. Goals: Aggressive CODE STATUS: FULL CODE SYMPTOMS: * Dyspnea: Chest x-ray shows some atelectasis, bibasilar airspace disease. Abdomen is distended and exerting pressure on the diaphragm. He is seen to be mildly short of breath with activity. The daughter reports a history of heavy smoking which he quit 20 years ago. * Agitation/anxiety: He appears anxious and restless in bed, frequently stating he must get up and out of bed and repositioning himself frequently. PT assessment indicates patient was assisted out of bed with minimal assist x2 on room air and ambulated to the bathroom. They are recommending an extended oxygen tube to allow for toileting. Would recommend transferring to a less intensive unit when cleared medically, out of bed and continued PT. Palliative care will continue to follow the patient during hospital course as condition evolves, to assist patient/decision-maker with understanding of their medical conditions, weighing benefits/burdens of treatment options, for clarification of goals of treatment. Additionally will assist with any symptoms of palliative concern. . Appreciation Thank you for the opportunity to participate in the care of Jacek Awad. Attestation Attestation: To help prompt me to consider important information that might be impacting today's encounter and assessment, information from prior notes written by myself or my colleagues may have been "brought forward" into today's note. My signature on this note, however, is an attestation that I personally performed the exam, history, and/or decision-making noted today, and, unless otherwise indicated, the interactions with patient, family, and staff as well as the review of records all occurred today. I also attest that the listed assessment and stated plan reflect my best clinical judgment today based on the combination of historical information, prior notes, and today's exam/ interactions. When time spent is documented, it refers only to time spent today by the signer, or if indicated, combined time spent today by collaborating physician/nurse practitioner. .
[2018-10-02] MEDS: Insulin NovoLOG Aspart Correctional Sugar Inj SQ SCH ×2 (12:51→17:32)
--- NOTE | 2018-10-02 15:26 | P.PNNP ---
Subjective Interval history: Seen in AM. Patient is alert but not oriented. Creatinine at 1.6. <Sana Flores - Last Filed: 10/02/18 15:20> Physical Exam Vital signs: Vital Signs 10/01/18 16:00 10/01/18 16:50 10/01/18 18:00 Temperature 98.3 F Pulse Rate 83 81 76 Respiratory Rate 19 20 Blood Pressure 115/60 Pulse Oximetry 10/01/18 20:00 10/01/18 21:26 10/01/18 22:00 Temperature 98.5 F Pulse Rate 74 80 80 Respiratory Rate 20 16 Blood Pressure 135/60 Pulse Oximetry 90 L 10/02/18 00:00 10/02/18 02:00 10/02/18 04:00 Temperature 98.3 F 98.7 F Pulse Rate 77 78 79 Respiratory Rate 23 20 Blood Pressure 108/62 143/61 H Pulse Oximetry 100 96 10/02/18 04:12 10/02/18 06:00 10/02/18 08:00 Temperature 98.6 F Pulse Rate 78 85 83 Respiratory Rate 22 22 Blood Pressure 92/52 L Pulse Oximetry 94 L 10/02/18 08:25 10/02/18 10:00 10/02/18 12:00 Temperature 98.8 F Pulse Rate 84 85 90 Respiratory Rate 18 22 Blood Pressure 120/63 Pulse Oximetry 10/02/18 14:00 Temperature Pulse Rate 86 Respiratory Rate Blood Pressure Pulse Oximetry Intake & Output 10/01/18 10/02/18 10/02/18 18:59 06:59 18:59 Intake Total 600 / 600 150 / 150 Output Total 1400 / 1400 150 / 150 Balance -800 / -800 0 / 0 Weight 82.1 kg Intake: Oral 600 / 600 150 / 150 Output: Urine 1400 / 1400 150 / 150 Other: # Voids 4 1 # Incontinent Voids 4 # Urine Diapers 4 Date of Last Bowel Movement 10/01/18 10/02/18 10/02/18 # Bowel Movements 1 3 # Incontinent Bowel Movements 1 2 Narrative: GENERAL: Awake, and confused. SKIN: Warm and dry. NECK: Supple, trachea midline. No JVD CARDIOVASCULAR: Regular rate and rhythm without murmurs, gallops, or rubs. RESPIRATORY: Breath sounds equal bilaterally. No accessory muscle use. GASTROINTESTINAL: Abdomen soft, non-tender, distended. MUSCULOSKELETAL: No cyanosis, mild edema BACK: Nontender without obvious deformity. No CVA tenderness. - Urinary Catheter Management Indwelling Temp Sensing Catheter Cath placed during this visit: yes, but has since been removed by the nurse Urethral indwelling: Yes Reason for continuing: Hourly intake/output Insertion date: 09/21/18 Insertion time: 20:00 Removal date: 09/25/18 Removal time: 15:45 <Sana Flores - Last Filed: 10/02/18 15:20> Vital signs: Vital Signs 10/01/18 21:26 10/01/18 22:00 10/02/18 00:00 Temperature 98.3 F Pulse Rate 80 80 77 Respiratory Rate 16 23 Blood Pressure 108/62 Pulse Oximetry 100 10/02/18 02:00 10/02/18 04:00 10/02/18 04:12 Temperature 98.7 F Pulse Rate 78 79 78 Respiratory Rate 20 22 Blood Pressure 143/61 H Pulse Oximetry 96 10/02/18 06:00 10/02/18 08:00 10/02/18 08:25 Temperature 98.6 F Pulse Rate 85 83 84 Respiratory Rate 22 18 Blood Pressure 92/52 L Pulse Oximetry 94 L 10/02/18 10:00 10/02/18 12:00 10/02/18 14:00 Temperature 98.8 F Pulse Rate 85 90 86 Respiratory Rate 22 Blood Pressure 120/63 Pulse Oximetry 10/02/18 15:38 10/02/18 16:00 10/02/18 18:00 Temperature 98.3 F Pulse Rate 86 96 H 93 H Respiratory Rate 20 18 Blood Pressure 100/55 L Pulse Oximetry 93 L Intake & Output 10/02/18 10/02/18 10/03/18 06:59 18:59 06:59 Intake Total 150 / 150 700 / 700 Output Total 150 / 150 1200 / 1200 Balance 0 / 0 -500 / -500 Weight 82.1 kg Intake: Oral 150 / 150 700 / 700 Output: Urine 150 / 150 1200 / 1200 Other: # Voids 1 Date of Last Bowel Movement 10/02/18 10/02/18 # Bowel Movements 3 1 # Incontinent Bowel Movements 2 1 - Urinary Catheter Management Indwelling Temp Sensing Catheter Cath placed during this visit: no <Lilly Balbuena - Last Filed: 10/02/18 21:18> Assessment and Plan - Assessment (1) Acute kidney failure Code(s): N17.9 - Acute kidney failure, unspecified Status: Acute (2) Respiratory failure Code(s): J96.90 - Respiratory failure, unspecified, unspecified whether with hypoxia or hypercapnia Status: Acute (3) Hepatocellular carcinoma Code(s): C22.0 - Liver cell carcinoma Status: Acute - Plan Patient with Chronic liver disease, and Hepatocellular carcinoma. Had GI bleeding and respiratory failure. MART possible prerenal with diureses. Avoid nephrotoxins Creatinine is now 1.6 adequate urinary output Continue lasix, if creatinine continues to increase consider decreasing lasix. Follow the urine out put and BMP <Sana Flores - Last Filed: 10/02/18 15:20> - Assessment (1) Acute kidney failure Code(s): N17.9 - Acute kidney failure, unspecified Status: Acute (2) Respiratory failure Code(s): J96.90 - Respiratory failure, unspecified, unspecified whether with hypoxia or hypercapnia Status: Acute (3) Hepatocellular carcinoma Code(s): C22.0 - Liver cell carcinoma Status: Acute - Plan Patient seen and examined, agree with above. Creatinine almost same. Urine out put is good. Will need Paracentesis. <Lilly Balbuena - Last Filed: 10/02/18 21:18>
[2018-10-03] MEDS: Insulin NovoLOG Aspart Correctional Sugar Inj SQ SCH ×6 (01:29→23:50)
[2018-10-03] MEDS: Oral Hygiene Kit OROPHARYNG SCH ×4 (01:32→23:49)
[2018-10-03] MEDS: Artificial Tears Opth Drops 15 ML Bottle EACH EYE SCH ×4 (01:32→23:51)
[2018-10-03] MEDS: rifAXIMin 550 MG Tablet PO SCH ×3 (03:44→16:27)
[2018-10-03 08:42] LABS: ABG Base Excess -11.6 mmol/L (-2-2); ABG PCO2 22 mmHg (38-42); ABG PO2 84 mmHG (61-120)
[2018-10-03] MEDS ORDERED: Etomidate Inj 40 MG/20 ML Vial IV.PUSH ONE (08:48)
--- NOTE | 2018-10-03 09:34 | P.PNCC ---
Subjective Subjective Remarks/Hospital Course: 09/22: Overnight the patient underwent EGD 5 columns of esophageal varices was located but no bleeding was noted per large blood clot was noted in the fundus and the duodenum 0 hemoglobin and hematocrits continue last hemoglobin noted to be 7.9. The patient continues on Protonix and octreotide infusions currently. Patient was noted to have a low normal blood pressure on propofol infusion this is been discontinued. Versed and fentanyl infusions initiated to maintain ventilator synchrony. Patient noted to have acute kidney injury creatinine downtrending slightly peer nephrology has been consulted appreciate recommendations per patient with known ascites last known paracentesis approximately 4 months ago peer INR within normal limits invasive radiology has been consulted for possible paracentesis. 09/23: The patient underwent CT-guided paracentesis yesterday 5.2 L removed the patient's FiO2 requirements continue to decrease PEEP has been decreased down to 5 FiO2 of 40%. Urine output 770 cc in 24hr. Lactulose enemas have been added to medication regimen twice daily secondary to hyperammonemia. 09/24: Afebrile. Continues with low urine output. Ventilator settings stable. Went to A. fib with RVR. Laboratories pending. EKG pending. On fentanyl drip sedation 100 mcg an hour. 09/25: NG tube placed today. Remains on the ventilator. Withdraws to pain. Positive cough and gag. Ammonia level down to 84. 09/26: Currently resting in bed in no acute distress. Minimally responsive on the ventilator off all sedation. MRI of the brain currently pending. Ammonia level is currently 91. 09/27: Afebrile. More awake today. MRI brain revealed no acute findings. Currently on CPAP trial. 09/28: Decompressed stomach this a.m. Appears comfortable and tolerating CPAP trials. We will give 1 dose of furosemide attempt extubate today if minimal ascites evaluated. 09/29 Patient was extubated yesterday pulled his NGT and PIV overnight. Afebrile. s/p Paracentesis with removal 4L. Afebrile. 09/30 Patient is lying in bed in NAD. Afebrile. 10/01: Afebrile. Resting in bed in no acute distress. Tolerating clear liquid diet. Ammonia level is 34. Positive BM. SUBJECTIVE: 10/03: Patient hypotensive this a.m. and tachypneic. Emergently intubated using glide scope. Currently norepinephrine drip. Stat central line placed. All a.m. labs are currently pending. Objective Vital Signs / I&O: Vital Signs 10/02/18 10:00 10/02/18 12:00 10/02/18 14:00 Temperature 98.8 F Pulse Rate 85 90 86 Respiratory Rate 22 Blood Pressure 120/63 Pulse Oximetry 10/02/18 15:38 10/02/18 16:00 10/02/18 18:00 Temperature 98.3 F Pulse Rate 86 96 H 93 H Respiratory Rate 20 18 Blood Pressure 100/55 L Pulse Oximetry 93 L 10/02/18 20:00 10/02/18 21:26 10/02/18 22:00 Temperature 97.8 F Pulse Rate 96 H 97 H 94 H Respiratory Rate 21 24 Blood Pressure 88/53 L Pulse Oximetry 95 10/03/18 00:00 10/03/18 02:00 10/03/18 04:00 Temperature 98 F 97.6 F Pulse Rate 96 H 90 81 Respiratory Rate 19 16 Blood Pressure 115/46 L 109/53 L Pulse Oximetry 95 95 10/03/18 06:00 10/03/18 07:30 10/03/18 08:12 Temperature Pulse Rate 82 76 Respiratory Rate 36 H Blood Pressure Pulse Oximetry 100 10/03/18 09:03 Temperature Pulse Rate Respiratory Rate 16 Blood Pressure Pulse Oximetry 100 Intake & Output 10/02/18 10/03/18 10/03/18 18:59 06:59 18:59 Intake Total 700 / 700 240 / 240 Output Total 1200 / 1200 800 / 800 Balance -500 / -500 -560 / -560 Weight 84 kg Intake: Oral 700 / 700 240 / 240 Output: Urine 1200 / 1200 800 / 800 Other: # Voids 3 Date of Last Bowel Movement 10/02/18 10/02/18 # Bowel Movements 1 # Incontinent Bowel Movements 1 Result Diagrams: 10/02/18 03:30 10/02/18 03:30 Other Results: Microbiology 09/23/18 20:30 Sputum - Endotracheal Gram Stain - Final 09/23/18 20:30 Sputum - Endotracheal Sputum Culture - Final Heavy growth normal respiratory kristel Imaging: Chest X-Ray 09/21/18 21:44 CONCLUSION: Endotracheal tube in good position. Bibasal airspace disease. No prior study for comparison. Paracentesis CT 09/22/18 14:08 CONCLUSION: 1. Uncomplicated CT Guided paracentesis. Abdomen/Bladder Ultrasound 09/23/18 00:00 CONCLUSION: 1. Echogenic kidneys consistent with medical renal disease. 2. Cirrhotic liver with ascites. 3. Small right pleural effusion, likely hepatic hydrothorax. Chest X-Ray 09/24/18 04:00 CONCLUSION: 1. Stable elevation of the right hemidiaphragm. Mild atelectatic changes in the right lung base. 2. Stable position of endotracheal tube. Head MRI 09/26/18 00:00 CONCLUSION: 1. Negative for acute process. Chest X-Ray 09/26/18 06:00 CONCLUSION: Clear lungs. Chest X-Ray 09/27/18 06:00 CONCLUSION: Clear lungs. Abdomen X-Ray 09/28/18 10:46 CONCLUSION: Nasogastric tube across the GE junction. There is persistent gaseous distention in spite of such. Clinical correlation suggested. Chest X-Ray 09/29/18 06:00 CONCLUSION: Diminished lung volumes with probable bibasilar atelectasis Objective Remarks: GENERAL: 78-year-old male currently orotracheally intubated SKIN: Warm and dry. Petechiae over her abdomen and left hip HEAD: Atraumatic. Normocephalic. EYES: Pupils equal and round about 3 meals bilaterally reactive.. Slight scleral icterus. No injection or drainage. ENT: No nasal bleeding or discharge. Mucous membranes pink and moist. Left IJ CVL with small hematoma. NECK: Trachea midline. No JVD. CARDIOVASCULAR: RRR. S1, S2. No S4. S1, S2. No S4. RESPIRATORY: Rhonchorous breath sounds appreciated no wheezing. GASTROINTESTINAL: Distended. Slightly tympanic. Bowel sounds are hypoactive. MUSCULOSKELETAL: Moves with trace lower extremity pitting. No obvious deformities. Noted 1+ bilateral pedal edema NEUROLOGICAL: Cranial nerves II through XII grossly intact prior to intubation and moving all 4 extremities spontaneously.. Procedures: 09/21- EGD 09/22-CT guided paracentesis 2.5 L removed Assessment and Plan - Assessment and Plan Plan: NEURO/PSYCH: History of stroke with residual aphasia Daily sedation vacation Goal of RA SS -2 Fentanyl/midazolam drips for sedation/analgesia while intubated MRI brain 09/26 without acute intracranial findings RESP: Acute respiratory failure Extubated 09/28. Reintubated 10/03 PRVC/AC ventilation Ventilator bundle Head of bed at 30 degrees Albuterol/ipratropium aerosols every 4 hours with albuterol aerosols every 2 hours as needed dyspnea Follow-up on post intubation chest x-ray and ABG Spontaneous breathing trials and clinically indicated CV: Shock likely hemorrhagic plus or minus septic Essential hypertension Atrial fibrillation currently normal sinus rhythm Monitor HR and BP keep MAP>65mmHg Metoprolol tartrate 12.5mg TID currently on hold due to hypotension. We will consider holding furosemide 40 mg p.o. daily and Spironolactone 100 mg daily. Please check CVP Labs including lactate and troponin pending GI: Upper GI bleed secondary to esophageal varices now s/p banding Hx Hep C Cirrhosis Hepatocellular carcinoma s/p TACE procedure Recurrent ascites Hyperammonemia Hypoalbuminemia N.p.o. status. NG tube to low inner wall suction Pantoprazole bolus 80 mg followed by 8 mg an hour Octreotide drip previously 50 mcg an hour after 100 mg bolus now 09/21 GI consulted emergently, Dr. Beverly. Esophageal varices banded. Reportedly no active bleeding but unable to rule out gastric varices due to presence of clots in the stomach. 09/28- Paracentesis with removal 4.2L. 09/22paracentesis 5.2 L removed Xifaxan 550 twice daily and lactulose 30 cc 4 times daily. Ammonia level pending today FEN/RENAL: ?MART (unknown baseline creatinine) Hypernatremia Hypophosphatemia Monitor renal function, I/O's, electrolytes replacement per protocol. Will need K replacement today. Nephrology following. On furosemide 40mg daily, spironolactone 100 daily All labs currently pending. Bolusing with 500 cc LR and albumin ID: Tinea corporis Ciprofloxacin held. Currently on ceftriaxone 2 g IV daily for SBP prophylaxis. Triamcinolone cream see orders Sputum culture no growth to date HEME: Acute blood loss anemia/normocytic Thrombocytopenia Coagulopathy with elevated INR Transfuse 3 units PRBCs, 1 unit FFP and 1 unit of platelets since admission Transfer using 2 PRBCs now Monitor CBC daily. Follow trends. Recheck CBC in a.m. ENDO: Sliding scale insulin aspart insulin/low regimen to maintain euglycemia every 6 hours TSH 0.163. Total T3 is low. Free T3 was/low normal. PROPH: SCDs for DVT prophylaxis. Pharmacologic DVT prophylaxis is contraindicated. Pantoprazole drip ACCESS: Left IJ CVL day 1 placed 10/03 Critical care time 35 minutes
--- NOTE | 2018-10-03 09:49 | P.PCN ---
Date of procedure: 10/03/18 Pre-op diagnosis: Acute respiratory failure Post-op diagnosis: same Procedure: DATE:10/03/2018 PROCEDURE: Orotracheal intubation INDICATION: Acute respiratory failure DETAILS OF PROCEDURE The patient was placed in optimal position and preoxygenated with 100% FiO2 via bag valve mask. At the start oxygen saturation was 98%. The patient was administered 20 milligrams etomidate IV and 50 milligrams rocuronium IV. I entered the oropharynx with a size 4 laryngoscope blade and obtained a grade 2 view of the airway. On single attempt a size 8.0 cuffed endotracheal tube was passed through the vocal cords. Correct tube location was confirmed with end tidal CO2 detector and by auscultating over bilateral lung begum. The endotracheal tube was secured with adhesive tape at a depth of 24 cm at the lips. The patient was connected to the ventilator. The patient tolerated the procedure well without any apparent complications. Oxygen saturations were maintained greater than 95% all times. STAT chest x-ray pending at time of dictation.
--- NOTE | 2018-10-03 09:50 | P.PCN ---
Date of procedure: 10/03/18 Pre-op diagnosis: Hypotension/shock Post-op diagnosis: same Procedure: DATE: 10/03/2018 CENTRAL LINE PLACEMENT: Left internal jugular vein. Ultrasound-guided INDICATION: Central venous access CONSENT Informed consent for procedure was done obtaining considered emergent due to vasopressors/multiple medications and no IV peripheral IV access DESCRIPTION OF THE PROCEDURE The patient was placed in supine position. The skin was cleansed with Chloraprep. Additional barrier precautions included large sterile drape, sterile gloves, sterile gown, face mask, and hat. 1 % lidocaine was used for local anesthesia. Under direct ultrasound guidance and on initial attempt, the vein was accessed with an introducer needle. The guide wire was advanced and the tract was dilated. Using Seldinger technique a 7 Kosovan 20 cm antimicrobial coated triple-lumen catheter was advanced to a depth of 20 centimeters. The guide wire was removed. All ports had good return of dark venous blood and flushed easily with saline. The central line was secured with StatLock. A sterile dressing with antibiotic disc was applied. ESTIMATED BLOOD LOSS: Minimal COMPLICATIONS: No apparent complications. STAT chest x-ray pending at time of dictation
[2018-10-03 10:00] LABS: Baso # (Auto) 0.1 th/mm3 (0.0-0.2); Baso % (Auto) 0.6 % (0.0-2.0); Eos % (Auto) 0.3 % (0.0-4.0); Lymph # (Auto) 0.5 th/mm3 (1.0-4.8); Lymph % (Auto) 3.3 % (9.0-44.0); Mean Corpuscular HGB Conc 31.8 % (32.0-36.0); Mean Corpuscular Hemoglobin 29.2 pg (27.0-34.0); Mean Corpuscular Volume 91.9 fL (80.0-100.0); Mean Platelet Volume 10.4 fL (7.0-11.0); Mono # (Auto) 0.5 th/mm3 (0.0-0.9); Mono % (Auto) 3.4 % (0.0-8.0); Neut # (Auto) 14.2 th/mm3 (1.8-7.7); Neut % (Auto) 92.4 % (16.0-70.0); Platelet Count 99 th/mm3 (150-450); Red Blood Count 1.92 mil/mm3 (4.50-5.90); White Blood Count 15.3 th/mm3 (4.0-11.0)
[2018-10-03] MEDS ORDERED: Albumin Human 5% Inj 500 ML IV.SIG ONE (10:00)
[2018-10-03] MEDS: Octreotide Inj 500 MCG in Sodium Chlor 0.9% Inj 500 ML IV.CONT SCH ×2 (10:05→20:49)
[2018-10-03 10:23] LABS: Alanine Aminotransferase 299 U/L (12-78); Albumin 2.4 g/dL (3.4-5.0); Alkaline Phosphatase 91 U/L (45-117); Amylase 53 U/L (25-115); Anion Gap 17 meq/L (5-15); Aspartate Aminotransferase 746 U/L (15-37); Blood Urea Nitrogen 51 mg/dL (7-18); Calcium 7.9 mg/dL (8.5-10.1); Carbon Dioxide 14.8 meq/L (21.0-32.0); Chloride 109 meq/L (98-107); Creatine Kinase 547 U/L (39-308); Glomerular Filtration Rate 26 mL/min (>89); Glucose,Random 52 mg/dL (74-106); Lipase 318 U/L (73-393); Magnesium 2.1 mg/dL (1.5-2.5); Phosphorus 4.9 mg/dL (2.5-4.9); Potassium 5.4 meq/L (3.5-5.1); Sodium 141 meq/L (136-145); Total Protein 4.7 g/dL (6.4-8.2); Troponin I 0.04 ng/mL (0.02-0.05)
--- NOTE | 2018-10-03 10:23 | XR ---
EXAM DATE: 10/03/2018 10:16 AM EST AGE/SEX: 78 years / Male INDICATIONS: Abdominal distention. CLINICAL DATA: This is the patient's subsequent encounter. Patient reports that signs and symptoms h ave been present for 1 week and indicates a pain score of Nonresponsive. MEDICAL/SURGICAL HISTORY: . Anemia. Cirrhosis. Hepatitis C. Renal failure. Stroke. Carcinoma, l iver. Appendectomy. . COMPARISON: C, ABDOMEN 1V KUB, 09/28/2018. . FINDINGS: There is marked gastric distention. This finding raises possibility of gastric outlet obstruction. A nasogastric tube has its tip in the proximal stomach. Degenerative changes are noted throughout the t horacolumbar spine. No small or large bowel obstruction is noted. CONCLUSION: 1. Persistent marked gastric distention suggestive of gastric outlet obstruction. Clinical correlati on is recommended. 2. Nasogastric tube has its tip in the proximal stomach. 3. Degenerative changes throughout the thoracolumbar spine. Electronically signed by: Jacek Maddox MD Board Certified Radiologist 10/03/2018 10:22 AM EST
--- NOTE | 2018-10-03 10:23 | XR ---
EXAM DATE: 10/03/2018 10:14 AM EST AGE/SEX: 78 years / Male INDICATIONS: Central line placement. CLINICAL DATA: This is the patient's initial encounter. Patient reports that signs and symptoms have been present for 1 day and indicates a pain score of Nonresponsive. MEDICAL/SURGICAL HISTORY: . Anemia. Cirrhosis. Hepatitis C. Renal failure. Stroke. Carcinoma, l iver. Appendectomy. . COMPARISON: C, CHEST 1V SINGLE AP, 09/29/2018. . FINDINGS: ET tube, nasogastric tube in good position. Tip of central line in the innominate vein superior vena cava junction Marked elevation of the right hemidiaphragm with bibasilar parenchymal changes worse in the right. The heart and pulmonary vascularity are normal. CONCLUSION: Left IJ line as above without pneumothorax. Marked elevation of the right hemidiaphragm Electronically signed by: Jaguar Coffey MD Board Certified Radiologist 10/03/2018 10:22 AM EST
[2018-10-03 10:26] LABS: Hematocrit 17.6 % (39.0-51.0); Hemoglobin 5.6 gm/dL (13.0-17.0)
[2018-10-03 10:29] LABS: ABG Base Excess -14.3 mmol/L (-2-2); ABG PCO2 36 mmHg (38-42); ABG PO2 386 mmHG (61-120)
[2018-10-03 10:38] LABS: CKMB Percent 2.9 % (0.0-4.0); Creatine Kinase MB 15.6 ng/mL (0.5-3.6); INR 3.4 Ratio; Prothrombin Time 34.3 sec (9.8-11.6)
[2018-10-03 10:39] LABS: Activated Partial Thrombo Time 54.2 sec (23.4-31.7)
[2018-10-03] MEDS ORDERED: Phytonadione Inj 10 MG in Sodium Chlor 0.9% Inj 50 ML IV.SIG ONE (11:00)
[2018-10-03] MEDS ORDERED: Octreotide Inj 50 MCG/ML Vial IV.PUSH ONE (11:00)
[2018-10-03] MEDS ORDERED: Pantoprazole Inj 80 MG in Sodium Chlor 0.9% Inj 35 ML IV.SIG ONE (11:00)
[2018-10-03] MEDS ORDERED: Prothrombin Complex Conc Inj 2,000 UNIT in Syringe/Bag 1 EACH IV.SIG ONE (11:00)
[2018-10-03] MEDS: Sodium Bicarbonate 8.4% Inj 150 MEQ in Water for Inj, Sterile 850 ML IV.CONT SCH ×2 (11:15→19:58)
--- NOTE | 2018-10-03 11:30 | P.PNNP ---
Subjective Interval history: Intubated and now on ventilator, patient was hypotensive and tachycardic. <Sana Flores - Last Filed: 10/03/18 11:20> Physical Exam Vital signs: Vital Signs 10/02/18 12:00 10/02/18 14:00 10/02/18 15:38 Temperature 98.8 F Pulse Rate 90 86 86 Respiratory Rate 22 20 Blood Pressure 120/63 Pulse Oximetry 10/02/18 16:00 10/02/18 18:00 10/02/18 20:00 Temperature 98.3 F 97.8 F Pulse Rate 96 H 93 H 96 H Respiratory Rate 18 21 Blood Pressure 100/55 L 88/53 L Pulse Oximetry 93 L 95 10/02/18 21:26 10/02/18 22:00 10/03/18 00:00 Temperature 98 F Pulse Rate 97 H 94 H 96 H Respiratory Rate 24 19 Blood Pressure 115/46 L Pulse Oximetry 95 10/03/18 02:00 10/03/18 04:00 10/03/18 06:00 Temperature 97.6 F Pulse Rate 90 81 82 Respiratory Rate 16 Blood Pressure 109/53 L Pulse Oximetry 95 10/03/18 07:30 10/03/18 08:12 10/03/18 09:03 Temperature Pulse Rate 76 Respiratory Rate 36 H 16 Blood Pressure Pulse Oximetry 100 100 10/03/18 10:59 Temperature Pulse Rate 75 Respiratory Rate 22 Blood Pressure 130/60 Pulse Oximetry Intake & Output 10/02/18 10/03/18 10/03/18 18:59 06:59 18:59 Intake Total 700 / 700 240 / 240 400 / 400 Output Total 1200 / 1200 800 / 800 Balance -500 / -500 -560 / -560 400 / 400 Weight 84 kg Intake: Oral 700 / 700 240 / 240 Intake (Blood Product) Amt 400 / 400 Rbc As-3 Leukoreduced Unit 400 / 400 [id number] Rbc As-3 Leukoreduced Unit 0 / 0 [id number] Output: Urine 1200 / 1200 800 / 800 Other: # Voids 3 Date of Last Bowel Movement 10/02/18 10/02/18 10/02/18 # Bowel Movements 1 # Incontinent Bowel Movements 1 Narrative: GENERAL: intubated on ventilator SKIN: Warm and dry. NECK: Supple, trachea midline. No JVD CARDIOVASCULAR: Regular rate and rhythm without murmurs, gallops, or rubs. RESPIRATORY: Breath sounds equal bilaterally. No accessory muscle use. Orally intubated GASTROINTESTINAL: Abdomen soft, non-tender, distended. +BS. OG tube MUSCULOSKELETAL: No cyanosis, mild edema BACK: Nontender without obvious deformity. No CVA tenderness. - Urinary Catheter Management Indwelling Temp Sensing Catheter Cath placed during this visit: yes, but has since been removed by the nurse Urethral indwelling: Yes Reason for continuing: Hourly intake/output Insertion date: 09/21/18 Insertion time: 20:00 Removal date: 09/25/18 Removal time: 15:45 <Sana Flores - Last Filed: 10/03/18 11:20> - Urinary Catheter Management Indwelling Temp Sensing Catheter Cath placed during this visit: yes, but has since been removed by the nurse Urethral indwelling: Yes Reason for continuing: Hourly intake/output Insertion date: 09/21/18 Insertion time: 20:00 Removal date: 09/25/18 Removal time: 15:45 Indwelling Urethral Catheter Cath placed during this visit: no <Lilly Balbuena - Last Filed: 10/06/18 22:09> Assessment and Plan - Assessment (1) Acute kidney failure Code(s): N17.9 - Acute kidney failure, unspecified Status: Acute (2) Respiratory failure Code(s): J96.90 - Respiratory failure, unspecified, unspecified whether with hypoxia or hypercapnia Status: Acute (3) Hepatocellular carcinoma Code(s): C22.0 - Liver cell carcinoma Status: Acute - Plan Acute kidney injury Creatinine with acute worsening at 2.4 most likely related to hypotension HCO3 at 14.8, On bicarbonate gtt Potassium at 5.4, Kayexalate given Maintain MAP greater than 65 mmhg, on pressor Avoid nephrotoxins Follow the urine out put and BMP Respiratory failure Patient reintubated this morning 10/03, hypotensive and tachycardic Per CC Anemia HGB at 5.6, receiving IVF and plan to transfuse PRBC Chronic liver disease and hepatocellular carcinoma N.p.o. status. NG tube to low inner wall suction Pantoprazole and octreotide gtt. Has had repeated paracentesis. <Sana Flores - Last Filed: 10/03/18 11:20> - Assessment (1) Acute kidney failure Code(s): N17.9 - Acute kidney failure, unspecified Status: Acute (2) Respiratory failure Code(s): J96.90 - Respiratory failure, unspecified, unspecified whether with hypoxia or hypercapnia Status: Acute (3) Hepatocellular carcinoma Code(s): C22.0 - Liver cell carcinoma Status: Acute - Plan Patient seen and examined, agree with above. Patient has now worsening Creatinine. K is 5.4, Kayexalate is given. Prognosis is poor. <Lilly Balbuena - Last Filed: 10/06/18 22:09>
[2018-10-03] MEDS ORDERED: Vancomycin Consult Pharmacy OTHER PRN (11:38)
[2018-10-03 11:47] LABS: Acanthocytes 2+; Ovalocytes 1+
[2018-10-03] MEDS ORDERED: Sodium Polystyrene Sulfonate/Sorbitol Liq 15 GM/60 ML UDC PO ONE (12:00)
[2018-10-03] MEDS ORDERED: Calcium Chloride Inj 1 GM in Sodium Chlor 0.9% Inj 100 ML IV.SIG ONE (12:00)
[2018-10-03] MEDS ORDERED: RESP: Albuterol Concentrated 2.5 MG/0.5 ML Neb NEB ONE (12:00)
[2018-10-03] MEDS ORDERED: Dextrose 50% in Water 50 ML Vial IV.PUSH ONE (12:00)
--- NOTE | 2018-10-03 12:13 | P.PNGI ---
Subjective Interval history: Patient intubated this a.m. and mechanically ventilated Nursing reports hypotensive and tachycardic event this a.m. at 830 NG tube productive of dark red to coffee ground gastric content Hemoglobin dropped to 5.6 hematocrit 17.6 Packed RBCs transfusing Coagulopathic with INR 3.4 fibrinogen 51 <Laura Carlos - Last Filed: 10/03/18 12:03> Physical Exam Vital signs: Vital Signs 10/02/18 14:00 10/02/18 15:38 10/02/18 16:00 Temperature 98.3 F Pulse Rate 86 86 96 H Respiratory Rate 20 18 Blood Pressure 100/55 L Pulse Oximetry 93 L 10/02/18 18:00 10/02/18 20:00 10/02/18 21:26 Temperature 97.8 F Pulse Rate 93 H 96 H 97 H Respiratory Rate 21 24 Blood Pressure 88/53 L Pulse Oximetry 95 10/02/18 22:00 10/03/18 00:00 10/03/18 02:00 Temperature 98 F Pulse Rate 94 H 96 H 90 Respiratory Rate 19 Blood Pressure 115/46 L Pulse Oximetry 95 10/03/18 04:00 10/03/18 06:00 10/03/18 07:30 Temperature 97.6 F Pulse Rate 81 82 Respiratory Rate 16 Blood Pressure 109/53 L Pulse Oximetry 95 100 10/03/18 08:12 10/03/18 09:03 10/03/18 09:05 Temperature Pulse Rate 76 84 Respiratory Rate 36 H 16 16 Blood Pressure 141/64 H Pulse Oximetry 100 99 10/03/18 09:08 10/03/18 09:10 10/03/18 09:13 Temperature Pulse Rate 78 73 70 Respiratory Rate 10 L 16 16 Blood Pressure 139/62 134/60 136/62 Pulse Oximetry 100 100 100 10/03/18 09:15 10/03/18 09:18 10/03/18 09:20 Temperature Pulse Rate 71 70 78 Respiratory Rate 16 16 16 Blood Pressure 150/64 H 133/58 L 138/59 L Pulse Oximetry 100 100 100 10/03/18 09:23 10/03/18 09:25 10/03/18 09:28 Temperature Pulse Rate 80 80 80 Respiratory Rate 16 16 16 Blood Pressure 133/58 L 133/60 123/55 L Pulse Oximetry 100 100 100 10/03/18 09:30 10/03/18 09:33 10/03/18 09:35 Temperature Pulse Rate 81 80 78 Respiratory Rate 16 16 16 Blood Pressure 107/48 L 95/50 L 95/43 L Pulse Oximetry 100 100 100 10/03/18 09:38 10/03/18 09:40 10/03/18 09:43 Temperature Pulse Rate 78 79 78 Respiratory Rate 16 16 16 Blood Pressure 87/43 L 81/40 L 72/40 L Pulse Oximetry 100 100 100 10/03/18 09:45 10/03/18 10:00 10/03/18 10:15 Temperature Pulse Rate 77 75 74 Respiratory Rate 16 16 16 Blood Pressure 70/40 L 103/50 L 104/51 L Pulse Oximetry 100 100 100 10/03/18 10:30 10/03/18 10:46 10/03/18 10:59 Temperature Pulse Rate 75 75 75 Respiratory Rate 18 22 22 Blood Pressure 110/52 L 130/60 130/60 Pulse Oximetry 100 100 10/03/18 11:00 10/03/18 11:15 10/03/18 11:30 Temperature Pulse Rate 77 78 77 Respiratory Rate 23 23 22 Blood Pressure 133/59 L 129/59 L 121/57 L Pulse Oximetry 100 100 100 10/03/18 11:40 10/03/18 11:45 10/03/18 11:53 Temperature Pulse Rate 78 76 76 Respiratory Rate 22 23 22 Blood Pressure 121/57 L 126/61 Pulse Oximetry 100 100 100 Intake & Output 10/02/18 10/03/18 10/03/18 18:59 06:59 18:59 Intake Total 700 / 700 240 / 240 800 / 800 Output Total 1200 / 1200 800 / 800 Balance -500 / -500 -560 / -560 800 / 800 Weight 84 kg Intake: Oral 700 / 700 240 / 240 Intake (Blood Product) Amt 800 / 800 Rbc As-3 Leukoreduced Unit 400 / 400 [id number] Rbc As-3 Leukoreduced Unit 400 / 400 [id number] Rbc As-3 Leukoreduced Unit 0 / 0 [id number] Output: Urine 1200 / 1200 800 / 800 Other: # Voids 3 Date of Last Bowel Movement 10/02/18 10/02/18 10/02/18 # Bowel Movements 1 # Incontinent Bowel Movements 1 - Constitutional chronically ill appearing - Routine HEENT Exam Head: Present: normocephalic - Routine Respiratory Exam Present: patient mechanically ventilated - Routine Cardiovascular Exam Present: RRR. Absent: JVD - Routine Abdominal Exam Present: soft, normoactive bowel sounds. Absent: distended, firm Comments: Orogastric tube in place to low intermittent wall suction - Routine Extremities Exam Comments: +1 bilateral lower extremity edema - Routine Skin Exam Present: dry, pallor, warm - Routine Neurological Exam No response to verbal or tactile stimulation - Urinary Catheter Management Indwelling Temp Sensing Catheter Cath placed during this visit: yes, but has since been removed by the nurse Urethral indwelling: Yes Reason for continuing: Hourly intake/output Insertion date: 09/21/18 Insertion time: 20:00 Removal date: 09/25/18 Removal time: 15:45 <Laura Carlos - Last Filed: 10/03/18 12:03> Vital signs: Vital Signs 10/02/18 18:00 10/02/18 20:00 10/02/18 21:26 Temperature 97.8 F Pulse Rate 93 H 96 H 97 H Respiratory Rate 21 24 Blood Pressure 88/53 L Pulse Oximetry 95 10/02/18 22:00 10/03/18 00:00 10/03/18 02:00 Temperature 98 F Pulse Rate 94 H 96 H 90 Respiratory Rate 19 Blood Pressure 115/46 L Pulse Oximetry 95 10/03/18 04:00 10/03/18 06:00 10/03/18 07:30 Temperature 97.6 F Pulse Rate 81 82 Respiratory Rate 16 Blood Pressure 109/53 L Pulse Oximetry 95 100 10/03/18 08:00 10/03/18 08:12 10/03/18 09:03 Temperature Pulse Rate 76 76 Respiratory Rate 36 H 16 Blood Pressure Pulse Oximetry 100 10/03/18 09:05 10/03/18 09:08 10/03/18 09:10 Temperature Pulse Rate 84 78 73 Respiratory Rate 16 10 L 16 Blood Pressure 141/64 H 139/62 134/60 Pulse Oximetry 99 100 100 10/03/18 09:13 10/03/18 09:15 10/03/18 09:18 Temperature Pulse Rate 70 71 70 Respiratory Rate 16 16 16 Blood Pressure 136/62 150/64 H 133/58 L Pulse Oximetry 100 100 100 10/03/18 09:20 10/03/18 09:23 10/03/18 09:25 Temperature Pulse Rate 78 80 80 Respiratory Rate 16 16 16 Blood Pressure 138/59 L 133/58 L 133/60 Pulse Oximetry 100 100 100 10/03/18 09:28 10/03/18 09:30 10/03/18 09:33 Temperature Pulse Rate 80 81 80 Respiratory Rate 16 16 16 Blood Pressure 123/55 L 107/48 L 95/50 L Pulse Oximetry 100 100 100 10/03/18 09:35 10/03/18 09:38 10/03/18 09:40 Temperature Pulse Rate 78 78 79 Respiratory Rate 16 16 16 Blood Pressure 95/43 L 87/43 L 81/40 L Pulse Oximetry 100 100 100 10/03/18 09:43 10/03/18 09:45 10/03/18 10:00 Temperature Pulse Rate 78 77 75 Respiratory Rate 16 16 16 Blood Pressure 72/40 L 70/40 L 103/50 L Pulse Oximetry 100 100 100 10/03/18 10:15 10/03/18 10:30 10/03/18 10:46 Temperature Pulse Rate 74 75 75 Respiratory Rate 16 18 22 Blood Pressure 104/51 L 110/52 L 130/60 Pulse Oximetry 100 100 100 10/03/18 10:59 10/03/18 11:00 10/03/18 11:15 Temperature Pulse Rate 75 77 78 Respiratory Rate 22 23 23 Blood Pressure 130/60 133/59 L 129/59 L Pulse Oximetry 100 100 10/03/18 11:30 10/03/18 11:40 10/03/18 11:45 Temperature Pulse Rate 77 78 76 Respiratory Rate 22 22 23 Blood Pressure 121/57 L 121/57 L 126/61 Pulse Oximetry 100 100 100 10/03/18 11:53 10/03/18 12:00 10/03/18 12:35 Temperature Pulse Rate 76 76 68 Respiratory Rate 22 22 Blood Pressure 93/45 L Pulse Oximetry 100 100 10/03/18 13:43 10/03/18 14:00 10/03/18 14:20 Temperature 90.0 F L Pulse Rate 75 75 Respiratory Rate 25 H 24 Blood Pressure 98/50 L Pulse Oximetry 100 100 10/03/18 15:43 10/03/18 15:45 10/03/18 16:00 Temperature 92.1 F L Pulse Rate 74 74 77 Respiratory Rate 24 24 Blood Pressure 91/51 L 104/53 L Pulse Oximetry 100 100 10/03/18 16:49 10/03/18 17:18 Temperature 92.8 F L 92.8 F L Pulse Rate 77 77 Respiratory Rate 24 24 Blood Pressure 111/51 L 113/53 L Pulse Oximetry 98 99 Intake & Output 10/02/18 10/03/18 10/03/18 18:59 06:59 18:59 Intake Total 700 / 700 240 / 240 2700 / 2700 Output Total 1200 / 1200 800 / 800 Balance -500 / -500 -560 / -560 2700 / 2700 Weight 84 kg Intake: IV 50 / 50 Zosyn 3.375 GM Premix 3.375 gm 50 / 50 In 50 ml @ 100 mls/hr IV.SIG Q6H [facility] Rx#:[id number] Oral 700 / 700 240 / 240 Intake (Blood Product) Amt 2650 / 2650 Plasma Thawed 5 Day Cp2d Unit 267 / 267 [id number] Plasma Thawed 5 Day Cp2d Unit 338 / 338 [id number] Pre-Pooled Cryo Thawed 10units 231 / 231 Unit [id number] Pre-Pooled Cryo Thawed 10units 214 / 214 Unit [id number] Rbc As-3 Leukoreduced Unit 400 / 400 [id number] Rbc As-3 Leukoreduced Unit 400 / 400 [id number] Rbc As-3 Leukoreduced Unit 400 / 400 [id number] Rbc As-3 Leukoreduced Unit 400 / 400 [id number] Output: Urine 1200 / 1200 800 / 800 Other: # Voids 3 Date of Last Bowel Movement 10/02/18 10/02/18 10/02/18 # Bowel Movements 1 # Incontinent Bowel Movements 1 - Urinary Catheter Management Indwelling Temp Sensing Catheter Cath placed during this visit: no <Sukhi Vera - Last Filed: 10/03/18 17:53> Results - Labs CBC & Chem 7: 10/03/18 09:30 10/03/18 09:30 Laboratory Results - last 24 hr 09/21/18 09/24/18 10/02/18 19:26 19:11 12:46 WBC RBC Hgb Hct MCV MCH MCHC RDW Plt Count MPV Prelim Diff (Auto) Neut % (Auto) Lymph % (Auto) Latimer % (Auto) Eos % (Auto) Baso % (Auto) Neut # (Auto) Lymph # (Auto) Latimer # (Auto) Eos # (Auto) Baso # (Auto) WBC Differential Diff Scan Differential Comment Ovalocytes Acanthocytes (Spur) Keratocytes PT INR APTT Fibrinogen Puncture Site Patient Temperature O2 Saturation ABG pH ABG pCO2 ABG pO2 ABG HCO3 ABG O2 Content ABG Base Excess ABG Methemoglobin Thierno Test Hemoglobin Carboxyhemoglobin O2 Delivery Device Liter Flow Vent Setting Inspired O2 Critical Value Sodium Potassium Chloride Carbon Dioxide Anion Gap BUN Creatinine Estimated GFR POC Glucose 122 H Random Glucose Lactic Acid Calcium Phosphorus Magnesium Total Bilirubin AST ALT Alkaline Phosphatase Ammonia Total Creatine Kinase CK-MB (CK-2) CK-MB (CK-2) % Troponin I Total Protein Albumin Amylase Lipase Blood Type Blood Type Recheck Antibody Screen BuzzTable Gel Crossmatch See Detail See Detail Blood Bank Comment 10/02/18 10/03/18 10/03/18 16:26 01:15 05:08 WBC RBC Hgb Hct MCV MCH MCHC RDW Plt Count MPV Prelim Diff (Auto) Neut % (Auto) Lymph % (Auto) Latimer % (Auto) Eos % (Auto) Baso % (Auto) Neut # (Auto) Lymph # (Auto) Latimer # (Auto) Eos # (Auto) Baso # (Auto) WBC Differential Diff Scan Differential Comment Ovalocytes Acanthocytes (Spur) Keratocytes PT INR APTT Fibrinogen Puncture Site Patient Temperature O2 Saturation ABG pH ABG pCO2 ABG pO2 ABG HCO3 ABG O2 Content ABG Base Excess ABG Methemoglobin Thierno Test Hemoglobin Carboxyhemoglobin O2 Delivery Device Liter Flow Vent Setting Inspired O2 Critical Value Sodium Potassium Chloride Carbon Dioxide Anion Gap BUN Creatinine Estimated GFR POC Glucose 144 H 93 49 L* Random Glucose Lactic Acid Calcium Phosphorus Magnesium Total Bilirubin AST ALT Alkaline Phosphatase Ammonia Total Creatine Kinase CK-MB (CK-2) CK-MB (CK-2) % Troponin I Total Protein Albumin Amylase Lipase Blood Type Blood Type Recheck Antibody Screen MTS Gel Crossmatch Blood Bank Comment 10/03/18 10/03/18 10/03/18 05:46 08:31 09:30 WBC RBC Hgb Hct MCV MCH MCHC RDW Plt Count MPV Prelim Diff (Auto) Neut % (Auto) Lymph % (Auto) Latimer % (Auto) Eos % (Auto) Baso % (Auto) Neut # (Auto) Lymph # (Auto) Latimer # (Auto) Eos # (Auto) Baso # (Auto) WBC Differential Diff Scan Differential Comment Ovalocytes Acanthocytes (Spur) Keratocytes PT INR APTT Fibrinogen Puncture Site Right radial Patient Temperature 98.6 O2 Saturation 94 ABG pH 7.37 L ABG pCO2 22 L* ABG pO2 84 ABG HCO3 13 L* ABG O2 Content 7.2 L ABG Base Excess -11.6 L ABG Methemoglobin 1.8 Thierno Test + Hemoglobin 5.3 L* Carboxyhemoglobin 1.7 O2 Delivery Device Nasal cannula Liter Flow 3.00 Vent Setting Inspired O2 Critical Value Yes Sodium Potassium Chloride Carbon Dioxide Anion Gap BUN Creatinine Estimated GFR POC Glucose 105 Random Glucose Lactic Acid Calcium Phosphorus Magnesium Total Bilirubin AST ALT Alkaline Phosphatase Ammonia Total Creatine Kinase CK-MB (CK-2) CK-MB (CK-2) % Troponin I Total Protein Albumin Amylase Lipase Blood Type A Positive Blood Type Recheck Not needed Antibody Screen Negative MTS Gel Crossmatch See Detail Blood Bank Comment 10/03/18 10/03/18 10/03/18 09:30 09:30 09:30 WBC 15.3 H RBC 1.92 L Hgb 5.6 L* Hct 17.6 L* MCV 91.9 D MCH 29.2 MCHC 31.8 L RDW 20.0 H Plt Count 99 L D MPV 10.4 Prelim Diff (Auto) Slide review pending Neut % (Auto) 92.4 H Lymph % (Auto) 3.3 L Latimer % (Auto) 3.4 Eos % (Auto) 0.3 Baso % (Auto) 0.6 Neut # (Auto) 14.2 H Lymph # (Auto) 0.5 L Latimer # (Auto) 0.5 Eos # (Auto) 0.0 Baso # (Auto) 0.1 WBC Differential . Diff Scan Auto diff confirmed Differential Comment . Ovalocytes 1+ H Acanthocytes (Spur) 2+ H Keratocytes 2+ H PT 34.3 H D INR 3.4 APTT 54.2 H D Fibrinogen 51 L* Puncture Site Patient Temperature O2 Saturation ABG pH ABG pCO2 ABG pO2 ABG HCO3 ABG O2 Content ABG Base Excess ABG Methemoglobin Thierno Test Hemoglobin Carboxyhemoglobin O2 Delivery Device Liter Flow Vent Setting Inspired O2 Critical Value Sodium 141 Potassium 5.4 H D Chloride 109 H Carbon Dioxide 14.8 L D Anion Gap 17 H BUN 51 H Creatinine 2.43 H Estimated GFR 26 L POC Glucose Random Glucose 52 L Lactic Acid Calcium 7.9 L Phosphorus 4.9 D Magnesium 2.1 Total Bilirubin 4.9 H AST 746 H ALT 299 H Alkaline Phosphatase 91 Ammonia Total Creatine Kinase 547 H CK-MB (CK-2) 15.6 H CK-MB (CK-2) % 2.9 Troponin I 0.04 Total Protein 4.7 L Albumin 2.4 L Amylase 53 Lipase 318 Blood Type Blood Type Recheck Antibody Screen [facility] Blood Bank Comment 10/03/18 10/03/18 10/03/18 09:30 09:30 10:17 WBC RBC Hgb Hct MCV MCH MCHC RDW Plt Count MPV Prelim Diff (Auto) Neut % (Auto) Lymph % (Auto) Latimer % (Auto) Eos % (Auto) Baso % (Auto) Neut # (Auto) Lymph # (Auto) Latimer # (Auto) Eos # (Auto) Baso # (Auto) WBC Differential Diff Scan Differential Comment Ovalocytes Acanthocytes (Spur) Keratocytes PT INR APTT Fibrinogen Puncture Site Right radial Patient Temperature 98.6 O2 Saturation 97 ABG pH 7.17 L* ABG pCO2 36 L ABG pO2 386 H ABG HCO3 13 L* ABG O2 Content 7.7 L ABG Base Excess -14.3 L ABG Methemoglobin 1.9 Thierno Test Present Hemoglobin 4.9 L* Carboxyhemoglobin 1.2 O2 Delivery Device Ventilator Liter Flow Vent Setting 16/520/1.10/+5 Inspired O2 100 Critical Value Yes Sodium Potassium Chloride Carbon Dioxide Anion Gap BUN Creatinine Estimated GFR POC Glucose Random Glucose Lactic Acid 12.4 H* Calcium Phosphorus Magnesium Total Bilirubin AST ALT Alkaline Phosphatase Ammonia 81 H Total Creatine Kinase CK-MB (CK-2) CK-MB (CK-2) % Troponin I Total Protein Albumin Amylase Lipase Blood Type Blood Type Recheck Antibody Screen [facility] Blood Bank Comment 10/03/18 10:26 WBC RBC Hgb Hct MCV MCH MCHC RDW Plt Count MPV Prelim Diff (Auto) Neut % (Auto) Lymph % (Auto) Latimer % (Auto) Eos % (Auto) Baso % (Auto) Neut # (Auto) Lymph # (Auto) Latimer # (Auto) Eos # (Auto) Baso # (Auto) WBC Differential Diff Scan Differential Comment Ovalocytes Acanthocytes (Spur) Keratocytes PT INR APTT Fibrinogen Puncture Site Patient Temperature O2 Saturation ABG pH ABG pCO2 ABG pO2 ABG HCO3 ABG O2 Content ABG Base Excess ABG Methemoglobin Thierno Test Hemoglobin Carboxyhemoglobin O2 Delivery Device Liter Flow Vent Setting Inspired O2 Critical Value Sodium Potassium Chloride Carbon Dioxide Anion Gap BUN Creatinine Estimated GFR POC Glucose Random Glucose Lactic Acid Calcium Phosphorus Magnesium Total Bilirubin AST ALT Alkaline Phosphatase Ammonia Total Creatine Kinase CK-MB (CK-2) CK-MB (CK-2) % Troponin I Total Protein Albumin Amylase Lipase Blood Type Blood Type Recheck Antibody Screen MTS Gel Crossmatch Blood Bank Comment - Imaging Impressions Chest X-Ray 10/03/18 09:34 CONCLUSION: Left IJ line as above without pneumothorax. Marked elevation of the right hemidiaphragm Abdomen X-Ray 10/03/18 09:35 CONCLUSION: 1. Persistent marked gastric distention suggestive of gastric outlet obstruction. Clinical correlation is recommended. 2. Nasogastric tube has its tip in the proximal stomach. 3. Degenerative changes throughout the thoracolumbar spine. <Laura Carlos - Last Filed: 10/03/18 12:03> - Labs CBC & Chem 7: 10/03/18 16:58 10/03/18 16:58 Laboratory Results - last 24 hr 09/21/18 09/24/18 10/03/18 19:26 19:11 01:15 WBC RBC Hgb Hct MCV MCH MCHC RDW Plt Count MPV Prelim Diff (Auto) Neut % (Auto) Lymph % (Auto) Latimer % (Auto) Eos % (Auto) Baso % (Auto) Neut # (Auto) Lymph # (Auto) Latimer # (Auto) Eos # (Auto) Baso # (Auto) WBC Differential Diff Scan Differential Comment Ovalocytes Acanthocytes (Spur) Keratocytes PT INR APTT Fibrinogen Puncture Site Patient Temperature O2 Saturation ABG pH ABG pCO2 ABG pO2 ABG HCO3 ABG O2 Content ABG Base Excess ABG Methemoglobin Thierno Test Hemoglobin Carboxyhemoglobin O2 Delivery Device Liter Flow Vent Setting Inspired O2 Critical Value Sodium Potassium Chloride Carbon Dioxide Anion Gap BUN Creatinine Estimated GFR POC Glucose 93 Random Glucose Lactic Acid Calcium Phosphorus Magnesium Total Bilirubin AST ALT Alkaline Phosphatase Ammonia Total Creatine Kinase CK-MB (CK-2) CK-MB (CK-2) % Troponin I Total Protein Albumin Amylase Lipase Blood Type Blood Type Recheck Antibody Screen MTS Gel Crossmatch See Detail See Detail Blood Bank Comment 10/03/18 10/03/18 10/03/18 05:08 05:46 08:31 WBC RBC Hgb Hct MCV MCH MCHC RDW Plt Count MPV Prelim Diff (Auto) Neut % (Auto) Lymph % (Auto) Latimer % (Auto) Eos % (Auto) Baso % (Auto) Neut # (Auto) Lymph # (Auto) Latimer # (Auto) Eos # (Auto) Baso # (Auto) WBC Differential Diff Scan Differential Comment Ovalocytes Acanthocytes (Spur) Keratocytes PT INR APTT Fibrinogen Puncture Site Right radial Patient Temperature 98.6 O2 Saturation 94 ABG pH 7.37 L ABG pCO2 22 L* ABG pO2 84 ABG HCO3 13 L* ABG O2 Content 7.2 L ABG Base Excess -11.6 L ABG Methemoglobin 1.8 Thierno Test + Hemoglobin 5.3 L* Carboxyhemoglobin 1.7 O2 Delivery Device Nasal cannula Liter Flow 3.00 Vent Setting Inspired O2 Critical Value Yes Sodium Potassium Chloride Carbon Dioxide Anion Gap BUN Creatinine Estimated GFR POC Glucose 49 L* 105 Random Glucose Lactic Acid Calcium Phosphorus Magnesium Total Bilirubin AST ALT Alkaline Phosphatase Ammonia Total Creatine Kinase CK-MB (CK-2) CK-MB (CK-2) % Troponin I Total Protein Albumin Amylase Lipase Blood Type Blood Type Recheck Antibody Screen MTS Gel Crossmatch Blood Bank Comment 10/03/18 10/03/18 10/03/18 09:30 09:30 09:30 WBC 15.3 H RBC 1.92 L Hgb 5.6 L* Hct 17.6 L* MCV 91.9 D MCH 29.2 MCHC 31.8 L RDW 20.0 H Plt Count 99 L D MPV 10.4 Prelim Diff (Auto) Slide review pending Neut % (Auto) 92.4 H Lymph % (Auto) 3.3 L Latimer % (Auto) 3.4 Eos % (Auto) 0.3 Baso % (Auto) 0.6 Neut # (Auto) 14.2 H Lymph # (Auto) 0.5 L Latimer # (Auto) 0.5 Eos # (Auto) 0.0 Baso # (Auto) 0.1 WBC Differential . Diff Scan Auto diff confirmed Differential Comment . Ovalocytes 1+ H Acanthocytes (Spur) 2+ H Keratocytes 2+ H PT 34.3 H D INR 3.4 APTT 54.2 H D Fibrinogen 51 L* Puncture Site Patient Temperature O2 Saturation ABG pH ABG pCO2 ABG pO2 ABG HCO3 ABG O2 Content ABG Base Excess ABG Methemoglobin Thierno Test Hemoglobin Carboxyhemoglobin O2 Delivery Device Liter Flow Vent Setting Inspired O2 Critical Value Sodium Potassium Chloride Carbon Dioxide Anion Gap BUN Creatinine Estimated GFR POC Glucose Random Glucose Lactic Acid Calcium Phosphorus Magnesium Total Bilirubin AST ALT Alkaline Phosphatase Ammonia Total Creatine Kinase CK-MB (CK-2) CK-MB (CK-2) % Troponin I Total Protein Albumin Amylase Lipase Blood Type A Positive Blood Type Recheck Not needed Antibody Screen Negative MTS Gel Crossmatch See Detail Blood Bank Comment 10/03/18 10/03/18 10/03/18 09:30 09:30 09:30 WBC RBC Hgb Hct MCV MCH MCHC RDW Plt Count MPV Prelim Diff (Auto) Neut % (Auto) Lymph % (Auto) Latimer % (Auto) Eos % (Auto) Baso % (Auto) Neut # (Auto) Lymph # (Auto) Latimer # (Auto) Eos # (Auto) Baso # (Auto) WBC Differential Diff Scan Differential Comment Ovalocytes Acanthocytes (Spur) Keratocytes PT INR APTT Fibrinogen Puncture Site Patient Temperature O2 Saturation ABG pH ABG pCO2 ABG pO2 ABG HCO3 ABG O2 Content ABG Base Excess ABG Methemoglobin Thierno Test Hemoglobin Carboxyhemoglobin O2 Delivery Device Liter Flow Vent Setting Inspired O2 Critical Value Sodium 141 Potassium 5.4 H D Chloride 109 H Carbon Dioxide 14.8 L D Anion Gap 17 H BUN 51 H Creatinine 2.43 H Estimated GFR 26 L POC Glucose Random Glucose 52 L Lactic Acid 12.4 H* Calcium 7.9 L Phosphorus 4.9 D Magnesium 2.1 Total Bilirubin 4.9 H AST 746 H ALT 299 H Alkaline Phosphatase 91 Ammonia 81 H Total Creatine Kinase 547 H CK-MB (CK-2) 15.6 H CK-MB (CK-2) % 2.9 Troponin I 0.04 Total Protein 4.7 L Albumin 2.4 L Amylase 53 Lipase 318 Blood Type Blood Type Recheck Antibody Screen MTS Gel Crossmatch Blood Bank Comment 10/03/18 10/03/18 10/03/18 10:17 10:26 13:31 WBC RBC Hgb Hct MCV MCH MCHC RDW Plt Count MPV Prelim Diff (Auto) Neut % (Auto) Lymph % (Auto) Latimer % (Auto) Eos % (Auto) Baso % (Auto) Neut # (Auto) Lymph # (Auto) Latimer # (Auto) Eos # (Auto) Baso # (Auto) WBC Differential Diff Scan Differential Comment Ovalocytes Acanthocytes (Spur) Keratocytes PT INR APTT Fibrinogen Puncture Site Right radial Right radial Patient Temperature 98.6 98.6 O2 Saturation 97 97 ABG pH 7.17 L* 7.27 L* ABG pCO2 36 L 31 L ABG pO2 386 H 240 H ABG HCO3 13 L* 14 L* ABG O2 Content 7.7 L 10.6 L ABG Base Excess -14.3 L -11.8 L ABG Methemoglobin 1.9 1.6 Thierno Test Present + Hemoglobin 4.9 L* 7.3 L* Carboxyhemoglobin 1.2 1.1 O2 Delivery Device Ventilator Ventilator Liter Flow Vent Setting 16/520/1.10/+5 See comments Inspired O2 100 75 Critical Value Yes Yes Sodium Potassium Chloride Carbon Dioxide Anion Gap BUN Creatinine Estimated GFR POC Glucose Random Glucose Lactic Acid Calcium Phosphorus Magnesium Total Bilirubin AST ALT Alkaline Phosphatase Ammonia Total Creatine Kinase CK-MB (CK-2) CK-MB (CK-2) % Troponin I Total Protein Albumin Amylase Lipase Blood Type Blood Type Recheck Antibody Screen MTS Gel Crossmatch Blood Bank Comment 10/03/18 10/03/18 10/03/18 13:36 13:45 16:51 WBC RBC Hgb Hct MCV MCH MCHC RDW Plt Count MPV Prelim Diff (Auto) Neut % (Auto) Lymph % (Auto) Latimer % (Auto) Eos % (Auto) Baso % (Auto) Neut # (Auto) Lymph # (Auto) Latimer # (Auto) Eos # (Auto) Baso # (Auto) WBC Differential Diff Scan Differential Comment Ovalocytes Acanthocytes (Spur) Keratocytes PT INR APTT Fibrinogen Puncture Site Right radial Patient Temperature 98.6 O2 Saturation 96 ABG pH 7.37 L ABG pCO2 33 L ABG pO2 102 ABG HCO3 19 L ABG O2 Content 11.3 L ABG Base Excess -5.7 L ABG Methemoglobin 1.5 Thierno Test + Hemoglobin 8.3 L Carboxyhemoglobin 1.3 O2 Delivery Device Ventilator Liter Flow Vent Setting See comments Inspired O2 50 Critical Value No Sodium Potassium Chloride Carbon Dioxide Anion Gap BUN Creatinine Estimated GFR POC Glucose 144 H Random Glucose Lactic Acid Calcium Phosphorus Magnesium Total Bilirubin AST ALT Alkaline Phosphatase Ammonia Total Creatine Kinase CK-MB (CK-2) CK-MB (CK-2) % Troponin I Total Protein Albumin Amylase Lipase Blood Type Blood Type Recheck Antibody Screen MTS Gel Crossmatch See Detail Blood Bank Comment 10/03/18 10/03/18 10/03/18 16:58 16:58 16:58 WBC RBC Hgb 8.1 L D Hct 23.3 L MCV MCH MCHC RDW Plt Count MPV Prelim Diff (Auto) Neut % (Auto) Lymph % (Auto) Latimer % (Auto) Eos % (Auto) Baso % (Auto) Neut # (Auto) Lymph # (Auto) Latimer # (Auto) Eos # (Auto) Baso # (Auto) WBC Differential Diff Scan Differential Comment Ovalocytes Acanthocytes (Spur) Keratocytes PT INR APTT Fibrinogen Puncture Site Patient Temperature O2 Saturation ABG pH ABG pCO2 ABG pO2 ABG HCO3 ABG O2 Content ABG Base Excess ABG Methemoglobin Thierno Test Hemoglobin Carboxyhemoglobin O2 Delivery Device Liter Flow Vent Setting Inspired O2 Critical Value Sodium Potassium 4.7 Chloride Carbon Dioxide Anion Gap BUN Creatinine Estimated GFR POC Glucose Random Glucose Lactic Acid 11.8 H* Calcium Phosphorus Magnesium Total Bilirubin AST ALT Alkaline Phosphatase Ammonia Total Creatine Kinase CK-MB (CK-2) CK-MB (CK-2) % Troponin I Total Protein Albumin Amylase Lipase Blood Type Blood Type Recheck Antibody Screen MTS Gel Crossmatch Blood Bank Comment 10/03/18 16:58 WBC RBC Hgb Hct MCV MCH MCHC RDW Plt Count MPV Prelim Diff (Auto) Neut % (Auto) Lymph % (Auto) Latimer % (Auto) Eos % (Auto) Baso % (Auto) Neut # (Auto) Lymph # (Auto) [place]imer # (Auto) Eos # (Auto) Baso # (Auto) WBC Differential Diff Scan Differential Comment Ovalocytes Acanthocytes (Spur) Keratocytes PT 18.0 H D INR 1.8 APTT 60.4 H Fibrinogen 123 L Puncture Site Patient Temperature O2 Saturation ABG pH ABG pCO2 ABG pO2 ABG HCO3 ABG O2 Content ABG Base Excess ABG Methemoglobin Thierno Test Hemoglobin Carboxyhemoglobin O2 Delivery Device Liter Flow Vent Setting Inspired O2 Critical Value Sodium Potassium Chloride Carbon Dioxide Anion Gap BUN Creatinine Estimated GFR POC Glucose Random Glucose Lactic Acid Calcium Phosphorus Magnesium Total Bilirubin AST ALT Alkaline Phosphatase Ammonia Total Creatine Kinase CK-MB (CK-2) CK-MB (CK-2) % Troponin I Total Protein Albumin Amylase Lipase Blood Type Blood Type Recheck Antibody Screen MTS Gel Crossmatch Blood Bank Comment - Imaging Impressions Chest X-Ray 10/03/18 09:34 CONCLUSION: Left IJ line as above without pneumothorax. Marked elevation of the right hemidiaphragm Abdomen X-Ray 10/03/18 09:35 CONCLUSION: 1. Persistent marked gastric distention suggestive of gastric outlet obstruction. Clinical correlation is recommended. 2. Nasogastric tube has its tip in the proximal stomach. 3. Degenerative changes throughout the thoracolumbar spine. <Sukhi Vera - Last Filed: 10/03/18 17:53> Assessment and Plan (1) Hematemesis Status: Deleted Code(s): K92.0 - Hematemesis (2) Cirrhosis Status: Deleted Code(s): K74.60 - Unspecified cirrhosis of liver (3) Hx of hepatitis C Status: Deleted Code(s): Z86.19 - Personal history of other infectious and parasitic diseases (4) Thrombocytopenia Status: Deleted Code(s): D69.6 - Thrombocytopenia, unspecified (5) Tinea corporis Status: Acute Code(s): B35.4 - Tinea corporis (6) Hepatocellular carcinoma Status: Acute Code(s): C22.0 - Liver cell carcinoma - Plan 09/22/2018 EGD due to melena Hematemesis and history of cirrhosis 09/21/2018 EGD with band ligation of varices : 1. Large blood clot/blood in the fundus. Antrum normal 2. Blood in duodenum 3. Retroflexed views revealed large blood clot -Total bili 1.1 AST 40 ALT 34 alk phos 68 ammonia 43 hemoglobin 8.2 -No noted bleeding per nursing 09/23/2018 Post EGD 09/21/2018 showing large blood clots in the fundus antrum was normal there was blood in the duodenal retroflexed views revealed large blood clot recommendations for FFP platelets IV octreotide and Protonix. 09/24/2018 Liver cirrhosis with hematemesis -patient had a EGD showing large clots in the fundus of the antrum on 09/21/2018 Patient is currently intubated with Protonix IV push twice daily, octreotide discontinued this morning Hepatitis C Tinea corporis under chest Chronic kidney insufficiency Hyper ammonia 109 doubled from yesterday's level Total CK is elevated at 1370 Hemoglobin 7.6 hematocrit 22.1 platelets 48 BUN 64 creatinine 1.94 09/25/2018 Liver cirrhosis-post EGD on 09/21/2018 revealing large clots in the fundus of the antrum. Patient currently receiving IV Protonix twice daily Hemoglobin 7.7 hematocrit 22.2 stable, to begin Xifaxan, lactulose and nadolol Hepatitis C CKI Hyper ammonia-84--NG tube placement for administration of lactulose Xifaxan and nadolol 09/26/2018 Liver cirrhosis with ascites status post EGD on 09/21/2018 revealing large clots in the fundus of the antrum History of hepatitis C hepatocellular carcinoma status post TACE procedure Hyper ammonia Hemoglobin 9.4 hematocrit 27.3 platelet 56 INR 1.5 Ammonia today is 91 total bilirubin 1.8 09/29/2018 Liver cirrhosis with ascites Hepatitis C Hepatocellular carcinoma Hyper ammonia WBC 7.1 hemoglobin 8.5 hematocrit 25.1 platelet count 51 stable Patient awake and alert extubated on nasal cannula No reported bleeding Tolerating diet well post swallow evaluation 09/28/2018 KUB: Nasogastric tube is across the GE junction with persistent gaseous distention of stomach. Some small bowel gas is evident Moderate elevation the right hemidiaphragm. 09/30/2018 Liver cirrhosis with ascites Hepatitis C with hepatocellular carcinoma WBC 5.5 hemoglobin 7.7 hematocrit 22.5 No reported obvious bleeding-transfuse if needed to keep hemoglobin between 7 and 8 10/03/2018 Liver cirrhosis with ascites Hepatitis C with history of hepatocellular carcinoma GI has been notified that patient had hypotensive with tachycardic event this a.m. 08 [address] to low intermittent wall suction as patient was reintubated this a.m. Dark maroon colored gastric output in tubing Hemoglobin 5.6 hematocrit 17.6 platelet count 99 Coagulopathy INR 3.4 10/03/2018 Abdominal KUB; Persistent marked gastric distention suggestive of gastric outlet obstruction. Clinical correlation is recommended. Nasogastric tube has its tip in the proximal stomach. Degenerative changes throughout the thoracolumbar spine. Plan N.p.o. Orogastric tube in place as per lift driver Reversal of coagulopathy as per lift driver Monitor for active bleeding Transfuse to keep hemoglobin between 7 and 8--history of portal hypertensive gastropathy with variceal bleeding Palliative care following in light of patient's history of hepatocellular carcinoma and end-stage liver disease GI will follow closely Continue resuscitative measures Further recommendations to follow This patient has been seen by myself and Dr. Vera and this note is written on his been - Attending Attestation Dr. Vera <Laura Carlos - Last Filed: 10/03/18 12:03> (1) Hematemesis Status: Deleted Code(s): K92.0 - Hematemesis (2) Cirrhosis Status: Deleted Code(s): K74.60 - Unspecified cirrhosis of liver (3) Hx of hepatitis C Status: Deleted Code(s): Z86.19 - Personal history of other infectious and parasitic diseases (4) Thrombocytopenia Status: Deleted Code(s): D69.6 - Thrombocytopenia, unspecified (5) Tinea corporis Status: Acute Code(s): B35.4 - Tinea corporis (6) Hepatocellular carcinoma Status: Acute Code(s): C22.0 - Liver cell carcinoma - Attending Attestation I have seen and examined the patient and reviewed the relevant portions of the chart and discussed the patient's current complaints, results and findings with the PRINCIPAL CLERK. We have reviewed the therapeutic plan for the patient. I agree with the above assessment and recommendations as documented above. <Sukhi Vera - Last Filed: 10/03/18 17:53> <Laura Carlos - Last Filed: 10/03/18 12:03> (1) Hematemesis Qualifiers: Nausea presence: unspecified Qualified Code(s): K92.0 - Hematemesis (2) Cirrhosis Qualifiers: Ascites presence: unspecified <Sukhi Vera - Last Filed: 10/03/18 17:53> (1) Hematemesis Qualifiers: Nausea presence: unspecified Qualified Code(s): K92.0 - Hematemesis (2) Cirrhosis Qualifiers: Ascites presence: unspecified
[2018-10-03] MEDS: Piperacil/Tazo 3.375 GM Premix 3.375 GM/50 ML PIGGYBACK IV.SIG SCH ×3 (12:27→23:49)
[2018-10-03 13:41] LABS: ABG Base Excess -11.8 mmol/L (-2-2); ABG PCO2 31 mmHg (38-42); ABG PO2 240 mmHG (61-120)
[2018-10-03] MEDS ORDERED: Sodium Bicarbonate 8.4% Inj 50 MEQ/50 ML Syringe IV.PUSH ONE (14:15)
[2018-10-03] MEDS ORDERED: Vancomycin Inj 1,500 MG in Sodium Chlor 0.9% Inj 500 ML IV.SIG ONE (15:30)
[2018-10-03] MEDS: Clotrimazole 1% Cream 15 GM Tube TOPICAL SCH ×2 (16:25→20:56)
[2018-10-03] MEDS: Senna/Docusate Sodium 8.6/50 MG Tablet PO SCH ×2 (16:25→20:56)
[2018-10-03] MEDS: Vasopressin Inj 40 UNIT in Dextrose 5% in Water Inj 98 ML IV.CONT PRN ×2 (16:52)
--- NOTE | 2018-10-03 16:53 | P.PNPAL ---
Reason for Visit Reason for visit: a. To assist with evaluation and management of symptoms including: Dyspnea, pain b. To assist medical decision maker(s) with: better understanding of current medical conditions; weighing benefits/burdens of medical treatment options; making medical treatment decisions. Subjective Subjective/Interval History: This is a 78-year-old male brought to the emergency room 09/21/2018 by his daughter and son-in-law for hematemesis. They state they were visiting a cousin when the patient started to vomit up some blood and passed out on the front porch. At the same time he was incontinent of urine and stool. Patient was cleaned by the family and put back in the car at which time the patient woke up and they started driving him home. On the way home daughter noticed that his eyes had rolled back in his head and had vomited blood again and at that point decided to bring him to the emergency room on arrival he was awake but confused and kept saying that he had vomited "chilly". Daughter reports a history of liver cancer and liver cirrhosis status post 1 round of chemo radiation and chemo embolization in 2018 at the [facility] in [place], [place]. He had just moved to this area to be with her approximately 2 months ago and had not yet established medical care here. He had been receiving antibiotic and steroid for a generalized rash. There is no known previous diagnosis of varices however the daughter noted multiple paracentesis for ascites. He presented with dependent edema and a complaint of "something in his throat that he is trying to cough out". He supposed he was coming down with a cold. No history of melena. Patient seen for medically necessary visit to evaluate symptom management of dyspnea, vomiting and support family in goals of medical care. Patient became hypotensive and tachypneic this morning, requiring emergent intubation. Norepinephrine drip was required and stat central line placed. Chest x-ray post line placement noted correct placement without pneumothorax and marked elevation of the right hemidiaphragm. Abdomen x-ray noted persistent , marked gastric distention suggestive of gastric outlet obstruction. Nasogastric tube in the tip of the proximal stomach and degenerative changes throughout the thoracolumbar spine. He was seen by nephrology noting worsening of creatinine at 2.4, thought to be related to hypotension. He is acidotic with an HCO3 of 14.8, now receiving a bicarbonate drip. Hypokalemia was noted with potassium at 5.4 requiring a dose of Kayexalate. Morning labs were returned showing hemoglobin at 5.6 pending transfusion of packed red blood cells. Octreotide and Protonix drips were initiated and GI consulted. He was found to be coagulopathic with an INR of 3.4 and fibrinogen of 51. Lactic acid 12.4 and ammonia 81. GI recommends transfusing to keep hemoglobin between 7 and 8, noting his history of portal hypertensive gastropathy with variceal bleeding. He was ordered 2 units of cryoprecipitate, 2 units of FFP, 1 unit of prothrombin complex and 2 units of packed red blood cells. These blood products are still infusing. Patient remains intubated and sedated. He is hypotensive remaining on levothyroxine at 9 mcg/min and Versed 5 mcg. He is now hypothermic under a Reza hugger with a rectal temperature of 92.1. . Family/Friend Interactions: Spoke with his daughter, Nupur, to update her as to the patient's condition and the interventions underway to treat him. Discussed coagulopathy, labs and blood products being infused try to reverse this. Reviewed liver compromise contributing to the coagulopathy, findings of the abdominal x-ray and the treatment therefore. While her goals remain very aggressive and she wishes to continue interventions, she is aware that his condition is very critical and that he may not survive this hospitalization. Discussed CODE STATUS and she wishes to keep him in FULL CODE stating she wants to "push his body to the limit ". I did ask her to consider the length of resuscitative attempts that she might want to consider to allow her time to decide what would be in her father' s best interest and in accordance with his wishes in case he does progress to CODE BLUE requiring resuscitative attempts. . Advance Directives Health Care Surrogate Name and Number: Tricia King Objective Vital Signs: Vital Signs 10/02/18 18:00 10/02/18 20:00 10/02/18 21:26 Temperature 97.8 F Pulse Rate 93 H 96 H 97 H Respiratory Rate 21 24 Blood Pressure 88/53 L Pulse Oximetry 95 10/02/18 22:00 10/03/18 00:00 10/03/18 02:00 Temperature 98 F Pulse Rate 94 H 96 H 90 Respiratory Rate 19 Blood Pressure 115/46 L Pulse Oximetry 95 10/03/18 04:00 10/03/18 06:00 10/03/18 07:30 Temperature 97.6 F Pulse Rate 81 82 Respiratory Rate 16 Blood Pressure 109/53 L Pulse Oximetry 95 100 10/03/18 08:00 10/03/18 08:12 10/03/18 09:03 Temperature Pulse Rate 76 76 Respiratory Rate 36 H 16 Blood Pressure Pulse Oximetry 100 10/03/18 09:05 10/03/18 09:08 10/03/18 09:10 Temperature Pulse Rate 84 78 73 Respiratory Rate 16 10 L 16 Blood Pressure 141/64 H 139/62 134/60 Pulse Oximetry 99 100 100 10/03/18 09:13 10/03/18 09:15 10/03/18 09:18 Temperature Pulse Rate 70 71 70 Respiratory Rate 16 16 16 Blood Pressure 136/62 150/64 H 133/58 L Pulse Oximetry 100 100 100 10/03/18 09:20 10/03/18 09:23 10/03/18 09:25 Temperature Pulse Rate 78 80 80 Respiratory Rate 16 16 16 Blood Pressure 138/59 L 133/58 L 133/60 Pulse Oximetry 100 100 100 10/03/18 09:28 10/03/18 09:30 10/03/18 09:33 Temperature Pulse Rate 80 81 80 Respiratory Rate 16 16 16 Blood Pressure 123/55 L 107/48 L 95/50 L Pulse Oximetry 100 100 100 10/03/18 09:35 10/03/18 09:38 10/03/18 09:40 Temperature Pulse Rate 78 78 79 Respiratory Rate 16 16 16 Blood Pressure 95/43 L 87/43 L 81/40 L Pulse Oximetry 100 100 100 10/03/18 09:43 10/03/18 09:45 10/03/18 10:00 Temperature Pulse Rate 78 77 75 Respiratory Rate 16 16 16 Blood Pressure 72/40 L 70/40 L 103/50 L Pulse Oximetry 100 100 100 10/03/18 10:15 10/03/18 10:30 10/03/18 10:46 Temperature Pulse Rate 74 75 75 Respiratory Rate 16 18 22 Blood Pressure 104/51 L 110/52 L 130/60 Pulse Oximetry 100 100 100 10/03/18 10:59 10/03/18 11:00 10/03/18 11:15 Temperature Pulse Rate 75 77 78 Respiratory Rate 22 23 23 Blood Pressure 130/60 133/59 L 129/59 L Pulse Oximetry 100 100 10/03/18 11:30 10/03/18 11:40 10/03/18 11:45 Temperature Pulse Rate 77 78 76 Respiratory Rate 22 22 23 Blood Pressure 121/57 L 121/57 L 126/61 Pulse Oximetry 100 100 100 10/03/18 11:53 10/03/18 12:00 10/03/18 12:35 Temperature Pulse Rate 76 76 68 Respiratory Rate 22 22 Blood Pressure 93/45 L Pulse Oximetry 100 100 10/03/18 13:43 10/03/18 14:00 10/03/18 14:20 Temperature 90.0 F L Pulse Rate 75 75 Respiratory Rate 25 H 24 Blood Pressure 98/50 L Pulse Oximetry 100 100 10/03/18 15:43 10/03/18 15:45 Temperature 92.1 F L Pulse Rate 74 74 Respiratory Rate 24 24 Blood Pressure 91/51 L Pulse Oximetry 100 100 Intake & Output 10/02/18 10/03/18 10/03/18 18:59 06:59 18:59 Intake Total 700 / 700 240 / 240 1645 / 1645 Output Total 1200 / 1200 800 / 800 Balance -500 / -500 -560 / -560 1645 / 1645 Weight 185 lb 3.013 oz Intake: Oral 700 / 700 240 / 240 Intake (Blood Product) Amt 1645 / 1645 Pre-Pooled Cryo Thawed 10units 231 / 231 Unit [id number] Pre-Pooled Cryo Thawed 10units 214 / 214 Unit [id number] Rbc As-3 Leukoreduced Unit 400 / 400 [id number] Rbc As-3 Leukoreduced Unit 0 / 0 [id number] Rbc As-3 Leukoreduced Unit 400 / 400 [id number] Rbc As-3 Leukoreduced Unit 400 / 400 [id number] Output: Urine 1200 / 1200 800 / 800 Other: # Voids 3 Date of Last Bowel Movement 10/02/18 10/02/18 10/02/18 # Bowel Movements 1 # Incontinent Bowel Movements 1 Physical Exam: CONSTITUTIONAL/GENERAL: This is an adequately nourished patient, intubated, sedated, hypotensive on vasopressors. TUBES/LINES/DRAINS: PIV, ETT, OGT, L IJ SKIN: Slight jaundice, no rashes, or lesions. Ecchymoses on upper extremities and left flank. No wounds seen anteriorly. Skin temperature appropriate. Not diaphoretic. HEAD: Atraumatic. Normocephalic. EYES: Pupils equal and round and reactive. Extraocular motions intact. No scleral icterus. No injection or drainage. Fundi not examined. ENT: Unable to assess hearing, orotracheally intubated. NECK: Trachea midline. Supple, nontender. No palpable thyroid enlargement or nodularity. CARDIOVASCULAR: Regular rhythm, tachycardic rate, no rub murmur or gallop. Bilateral upper extremity edema. RESPIRATORY/CHEST: Symmetric, unlabored respirations. Scattered wheezes to auscultation. Breath sounds equal, diminished bilaterally. GASTROINTESTINAL: Abdomen distended, firm, nontender to palpation. Unable to appreciate organomegaly due to ascites. GENITOURINARY: Without palpable bladder distension. Burnett catheter intact to bedside drainage. MUSCULOSKELETAL: Extremities without clubbing, cyanosis. No joint tenderness or effusion noted. No calf tenderness. No mottling or clubbing. NEUROLOGICAL: Intubated, sedated. PSYCHIATRIC: Sedated . Diagnostic Tests Laboratory: Laboratory Results - last 72 hr 09/21/18 09/24/18 10/01/18 19:26 19:11 01:08 WBC RBC Hgb Hct MCV MCH MCHC RDW Plt Count MPV Prelim Diff (Auto) Neut % (Auto) Lymph % (Auto) [place] % (Auto) Eos % (Auto) Baso % (Auto) Neut # (Auto) Lymph # (Auto) [place] # (Auto) Eos # (Auto) Baso # (Auto) WBC Differential Diff Scan Differential Comment Platelet Estimate Platelet Morphology Ovalocytes Acanthocytes (Spur) Keratocytes PT INR APTT Fibrinogen Puncture Site Patient Temperature O2 Saturation ABG pH ABG pCO2 ABG pO2 ABG HCO3 ABG O2 Content ABG Base Excess ABG Methemoglobin Thierno Test Hemoglobin Carboxyhemoglobin O2 Delivery Device Liter Flow Vent Setting Inspired O2 Critical Value Sodium Potassium Chloride Carbon Dioxide Anion Gap BUN Creatinine Estimated GFR POC Glucose 94 Random Glucose Lactic Acid Calcium Phosphorus Magnesium Total Bilirubin AST ALT Alkaline Phosphatase Ammonia Total Creatine Kinase CK-MB (CK-2) CK-MB (CK-2) % Troponin I Total Protein Albumin Amylase Lipase Blood Type Blood Type Recheck Antibody Screen MTS Gel Crossmatch See Detail See Detail Blood Bank Comment 10/01/18 10/01/18 10/01/18 04:29 04:29 04:29 WBC 6.7 RBC 2.84 L Hgb 8.3 L Hct 24.8 L MCV 87.5 MCH 29.2 MCHC 33.4 RDW 18.0 H Plt Count 51 L MPV 9.5 Prelim Diff (Auto) Slide review pending Neut % (Auto) 73.3 H Lymph % (Auto) 7.[address] % (Auto) 9.8 H Eos % (Auto) 9.3 H Baso % (Auto) 0.6 Neut # (Auto) 4.9 Lymph # (Auto) 0.[address] # (Auto) 0.7 Eos # (Auto) 0.6 H Baso # (Auto) 0.0 WBC Differential . Diff Scan Auto diff confirmed Differential Comment . Platelet Estimate Low L Platelet Morphology Enlarged H Ovalocytes Acanthocytes (Spur) Keratocytes PT INR APTT Fibrinogen Puncture Site Patient Temperature O2 Saturation ABG pH ABG pCO2 ABG pO2 ABG HCO3 ABG O2 Content ABG Base Excess ABG Methemoglobin Thierno Test Hemoglobin Carboxyhemoglobin O2 Delivery Device Liter Flow Vent Setting Inspired O2 Critical Value Sodium 147 H Potassium 3.5 Chloride 113 H Carbon Dioxide 25.4 Anion Gap 9 BUN 42 H Creatinine 1.54 H Estimated GFR 44 L POC Glucose Random Glucose 85 Lactic Acid Calcium 8.0 L Phosphorus 1.9 L Magnesium 2.0 Total Bilirubin 3.1 H AST 70 H ALT 52 Alkaline Phosphatase 95 Ammonia 34 H Total Creatine Kinase CK-MB (CK-2) CK-MB (CK-2) % Troponin I Total Protein 5.5 L Albumin 2.9 L Amylase Lipase Blood Type Blood Type Recheck Antibody Screen MTS Gel Crossmatch Blood Bank Comment 10/01/18 10/01/18 10/01/18 05:02 15:04 23:25 WBC RBC Hgb Hct MCV MCH MCHC RDW Plt Count MPV Prelim Diff (Auto) Neut % (Auto) Lymph % (Auto) [place] % (Auto) Eos % (Auto) Baso % (Auto) Neut # (Auto) Lymph # (Auto) [place] # (Auto) Eos # (Auto) Baso # (Auto) WBC Differential Diff Scan Differential Comment Platelet Estimate Platelet Morphology Ovalocytes Acanthocytes (Spur) Keratocytes PT INR APTT Fibrinogen Puncture Site Patient Temperature O2 Saturation ABG pH ABG pCO2 ABG pO2 ABG HCO3 ABG O2 Content ABG Base Excess ABG Methemoglobin Thierno Test Hemoglobin Carboxyhemoglobin O2 Delivery Device Liter Flow Vent Setting Inspired O2 Critical Value Sodium Potassium Chloride Carbon Dioxide Anion Gap BUN Creatinine Estimated GFR POC Glucose 107 147 H 119 H Random Glucose Lactic Acid Calcium Phosphorus Magnesium Total Bilirubin AST ALT Alkaline Phosphatase Ammonia Total Creatine Kinase CK-MB (CK-2) CK-MB (CK-2) % Troponin I Total Protein Albumin Amylase Lipase Blood Type Blood Type Recheck Antibody Screen [facility] Gel [email or web address] Blood Bank Comment 10/02/18 10/02/18 10/02/18 03:30 03:30 03:30 WBC 7.1 RBC 2.59 L Hgb 7.5 L Hct 22.6 L MCV 87.4 MCH 29.1 MCHC 33.3 RDW 18.8 H Plt Count 63 L MPV 9.7 Prelim Diff (Auto) Slide review pending Neut % (Auto) 74.9 H Lymph % (Auto) 6.[address] % (Auto) 9.8 H Eos % (Auto) 7.9 H Baso % (Auto) 0.7 Neut # (Auto) 5.3 Lymph # (Auto) 0.[address] [place] # (Auto) 0.7 Eos # (Auto) 0.6 H Baso # (Auto) 0.0 WBC Differential . Diff Scan Auto diff confirmed Differential Comment . Platelet Estimate Low L Platelet Morphology Normal Ovalocytes 1+ H Acanthocytes (Spur) Occ H Keratocytes Occ H PT INR APTT 44.7 H Fibrinogen Puncture Site Patient Temperature O2 Saturation ABG pH ABG pCO2 ABG pO2 ABG HCO3 ABG O2 Content ABG Base Excess ABG Methemoglobin Thierno Test Hemoglobin Carboxyhemoglobin O2 Delivery Device Liter Flow Vent Setting Inspired O2 Critical Value Sodium 142 Potassium 3.9 Chloride 111 H Carbon Dioxide 24.0 Anion Gap 7 BUN 40 H Creatinine 1.62 H Estimated GFR 42 L POC Glucose Random Glucose 105 Lactic Acid Calcium 8.0 L Phosphorus 2.6 Magnesium 1.9 Total Bilirubin 2.8 H AST 56 H ALT 52 Alkaline Phosphatase 93 Ammonia Total Creatine Kinase CK-MB (CK-2) CK-MB (CK-2) % Troponin I Total Protein 5.1 L Albumin 2.6 L Amylase Lipase Blood Type Blood Type Recheck Antibody Screen [employer] Gel [email or web address] Blood Bank Comment 10/02/18 10/02/18 10/02/18 03:30 05:40 12:46 WBC RBC Hgb Hct MCV MCH MCHC RDW Plt Count MPV Prelim Diff (Auto) Neut % (Auto) Lymph % (Auto) [place] % (Auto) Eos % (Auto) Baso % (Auto) Neut # (Auto) Lymph # (Auto) [place] # (Auto) Eos # (Auto) Baso # (Auto) WBC Differential Diff Scan Differential Comment Platelet Estimate Platelet Morphology Ovalocytes Acanthocytes (Spur) Keratocytes PT INR APTT Fibrinogen Puncture Site Patient Temperature O2 Saturation ABG pH ABG pCO2 ABG pO2 ABG HCO3 ABG O2 Content ABG Base Excess ABG Methemoglobin Thierno Test Hemoglobin Carboxyhemoglobin O2 Delivery Device Liter Flow Vent Setting Inspired O2 Critical Value Sodium Potassium Chloride Carbon Dioxide Anion Gap BUN Creatinine Estimated GFR POC Glucose 101 122 H Random Glucose Lactic Acid Calcium Phosphorus Magnesium Total Bilirubin AST ALT Alkaline Phosphatase Ammonia 73 H Total Creatine Kinase CK-MB (CK-2) CK-MB (CK-2) % Troponin I Total Protein Albumin Amylase Lipase Blood Type Blood Type Recheck Antibody Screen [employer] Blood Bank Comment 10/02/18 10/03/18 10/03/18 16:26 01:15 05:08 WBC RBC Hgb Hct MCV MCH MCHC RDW Plt Count MPV Prelim Diff (Auto) Neut % (Auto) Lymph % (Auto) [place] % (Auto) Eos % (Auto) Baso % (Auto) Neut # (Auto) Lymph # (Auto) [place] # (Auto) Eos # (Auto) Baso # (Auto) WBC Differential Diff Scan Differential Comment Platelet Estimate Platelet Morphology Ovalocytes Acanthocytes (Spur) Keratocytes PT INR APTT Fibrinogen Puncture Site Patient Temperature O2 Saturation ABG pH ABG pCO2 ABG pO2 ABG HCO3 ABG O2 Content ABG Base Excess ABG Methemoglobin Thierno Test Hemoglobin Carboxyhemoglobin O2 Delivery Device Liter Flow Vent Setting Inspired O2 Critical Value Sodium Potassium Chloride Carbon Dioxide Anion Gap BUN Creatinine Estimated GFR POC Glucose 144 H 93 49 L* Random Glucose Lactic Acid Calcium Phosphorus Magnesium Total Bilirubin AST ALT Alkaline Phosphatase Ammonia Total Creatine Kinase CK-MB (CK-2) CK-MB (CK-2) % Troponin I Total Protein Albumin Amylase Lipase Blood Type Blood Type Recheck Antibody Screen [employer] Blood Bank Comment 10/03/18 10/03/18 10/03/18 05:46 08:31 09:30 WBC RBC Hgb Hct MCV MCH MCHC RDW Plt Count MPV Prelim Diff (Auto) Neut % (Auto) Lymph % (Auto) [place] % (Auto) Eos % (Auto) Baso % (Auto) Neut # (Auto) Lymph # (Auto) [place] # (Auto) Eos # (Auto) Baso # (Auto) WBC Differential Diff Scan Differential Comment Platelet Estimate Platelet Morphology Ovalocytes Acanthocytes (Spur) Keratocytes PT INR APTT Fibrinogen Puncture Site Right radial Patient Temperature 98.6 O2 Saturation 94 ABG pH 7.37 L ABG pCO2 22 L* ABG pO2 84 ABG HCO3 13 L* ABG O2 Content 7.2 L ABG Base Excess -11.6 L ABG Methemoglobin 1.8 Thierno Test + Hemoglobin 5.3 L* Carboxyhemoglobin 1.7 O2 Delivery Device Nasal cannula Liter Flow 3.00 Vent Setting Inspired O2 Critical Value Yes Sodium Potassium Chloride Carbon Dioxide Anion Gap BUN Creatinine Estimated GFR POC Glucose 105 Random Glucose Lactic Acid Calcium Phosphorus Magnesium Total Bilirubin AST ALT Alkaline Phosphatase Ammonia Total Creatine Kinase CK-MB (CK-2) CK-MB (CK-2) % Troponin I Total Protein Albumin Amylase Lipase Blood Type A Positive Blood Type Recheck Not needed Antibody Screen Negative MTS Gel Crossmatch See Detail Blood Bank Comment 10/03/18 10/03/18 10/03/18 09:30 09:30 09:30 WBC 15.3 H RBC 1.92 L Hgb 5.6 L* Hct 17.6 L* MCV 91.9 D MCH 29.2 MCHC 31.8 L RDW 20.0 H Plt Count 99 L D MPV 10.4 Prelim Diff (Auto) Slide review pending Neut % (Auto) 92.4 H Lymph % (Auto) 3.[address] % (Auto) 3.4 Eos % (Auto) 0.3 Baso % (Auto) 0.6 Neut # (Auto) 14.2 H Lymph # (Auto) 0.[address] # (Auto) 0.5 Eos # (Auto) 0.0 Baso # (Auto) 0.1 WBC Differential . Diff Scan Auto diff confirmed Differential Comment . Platelet Estimate Platelet Morphology Ovalocytes 1+ H Acanthocytes (Spur) 2+ H Keratocytes 2+ H PT 34.3 H D INR 3.4 APTT 54.2 H D Fibrinogen 51 L* Puncture Site Patient Temperature O2 Saturation ABG pH ABG pCO2 ABG pO2 ABG HCO3 ABG O2 Content ABG Base Excess ABG Methemoglobin Thierno Test Hemoglobin Carboxyhemoglobin O2 Delivery Device Liter Flow Vent Setting Inspired O2 Critical Value Sodium 141 Potassium 5.4 H D Chloride 109 H Carbon Dioxide 14.8 L D Anion Gap 17 H BUN 51 H Creatinine 2.43 H Estimated GFR 26 L POC Glucose Random Glucose 52 L Lactic Acid Calcium 7.9 L Phosphorus 4.9 D Magnesium 2.1 Total Bilirubin 4.9 H AST 746 H ALT 299 H Alkaline Phosphatase 91 Ammonia Total Creatine Kinase 547 H CK-MB (CK-2) 15.6 H CK-MB (CK-2) % 2.9 Troponin I 0.04 Total Protein 4.7 L Albumin 2.4 L Amylase 53 Lipase 318 Blood Type Blood Type Recheck Antibody Screen [employer] Gel [email or web address] Blood Bank Comment 10/03/18 10/03/18 10/03/18 09:30 09:30 10:17 WBC RBC Hgb Hct MCV MCH MCHC RDW Plt Count MPV Prelim Diff (Auto) Neut % (Auto) Lymph % (Auto) [place] % (Auto) Eos % (Auto) Baso % (Auto) Neut # (Auto) Lymph # (Auto) [place] # (Auto) Eos # (Auto) Baso # (Auto) WBC Differential Diff Scan Differential Comment Platelet Estimate Platelet Morphology Ovalocytes Acanthocytes (Spur) Keratocytes PT INR APTT Fibrinogen Puncture Site Right radial Patient Temperature 98.6 O2 Saturation 97 ABG pH 7.17 L* ABG pCO2 36 L ABG pO2 386 H ABG HCO3 13 L* ABG O2 Content 7.7 L ABG Base Excess -14.3 L ABG Methemoglobin 1.9 Thierno Test Present Hemoglobin 4.9 L* Carboxyhemoglobin 1.2 O2 Delivery Device Ventilator Liter Flow Vent Setting 16/520/1.10/+5 Inspired O2 100 Critical Value Yes Sodium Potassium Chloride Carbon Dioxide Anion Gap BUN Creatinine Estimated GFR POC Glucose Random Glucose Lactic Acid 12.4 H* Calcium Phosphorus Magnesium Total Bilirubin AST ALT Alkaline Phosphatase Ammonia 81 H Total Creatine Kinase CK-MB (CK-2) CK-MB (CK-2) % Troponin I Total Protein Albumin Amylase Lipase Blood Type Blood Type Recheck Antibody Screen [employer] Gel Crossmatch Blood Bank Comment 10/03/18 10/03/18 10/03/18 10:26 13:31 13:36 WBC RBC Hgb Hct MCV MCH MCHC RDW Plt Count MPV Prelim Diff (Auto) Neut % (Auto) Lymph % (Auto) [place] % (Auto) Eos % (Auto) Baso % (Auto) Neut # (Auto) Lymph # (Auto) [place] # (Auto) Eos # (Auto) Baso # (Auto) WBC Differential Diff Scan Differential Comment Platelet Estimate Platelet Morphology Ovalocytes Acanthocytes (Spur) Keratocytes PT INR APTT Fibrinogen Puncture Site Right radial Patient Temperature 98.6 O2 Saturation 97 ABG pH 7.27 L* ABG pCO2 31 L ABG pO2 240 H ABG HCO3 14 L* ABG O2 Content 10.6 L ABG Base Excess -11.8 L ABG Methemoglobin 1.6 Thierno Test + Hemoglobin 7.3 L* Carboxyhemoglobin 1.1 O2 Delivery Device Ventilator Liter Flow Vent Setting See comments Inspired O2 75 Critical Value Yes Sodium Potassium Chloride Carbon Dioxide Anion Gap BUN Creatinine Estimated GFR POC Glucose 144 H Random Glucose Lactic Acid Calcium Phosphorus Magnesium Total Bilirubin AST ALT Alkaline Phosphatase Ammonia Total Creatine Kinase CK-MB (CK-2) CK-MB (CK-2) % Troponin I Total Protein Albumin Amylase Lipase Blood Type Blood Type Recheck Antibody Screen MTS Gel Crossmatch Blood Bank Comment 10/03/18 13:45 WBC RBC Hgb Hct MCV MCH MCHC RDW Plt Count MPV Prelim Diff (Auto) Neut % (Auto) Lymph % (Auto) [place] % (Auto) Eos % (Auto) Baso % (Auto) Neut # (Auto) Lymph # (Auto) [place] # (Auto) Eos # (Auto) Baso # (Auto) WBC Differential Diff Scan Differential Comment Platelet Estimate Platelet Morphology Ovalocytes Acanthocytes (Spur) Keratocytes PT INR APTT Fibrinogen Puncture Site Patient Temperature O2 Saturation ABG pH ABG pCO2 ABG pO2 ABG HCO3 ABG O2 Content ABG Base Excess ABG Methemoglobin Thierno Test Hemoglobin Carboxyhemoglobin O2 Delivery Device Liter Flow Vent Setting Inspired O2 Critical Value Sodium Potassium Chloride Carbon Dioxide Anion Gap BUN Creatinine Estimated GFR POC Glucose Random Glucose Lactic Acid Calcium Phosphorus Magnesium Total Bilirubin AST ALT Alkaline Phosphatase Ammonia Total Creatine Kinase CK-MB (CK-2) CK-MB (CK-2) % Troponin I Total Protein Albumin Amylase Lipase Blood Type Blood Type Recheck Antibody Screen MTS Gel Crossmatch See Detail Blood Bank Comment Result Diagrams: 10/03/18 09:30 10/03/18 09:30 Imaging: ITS Impressions Paracentesis CT 09/22/18 14:08 CONCLUSION: 1. Uncomplicated CT Guided paracentesis. Abdomen/Bladder Ultrasound 09/23/18 00:00 CONCLUSION: 1. Echogenic kidneys consistent with medical renal disease. 2. Cirrhotic liver with ascites. 3. Small right pleural effusion, likely hepatic hydrothorax. Head MRI 09/26/18 00:00 CONCLUSION: 1. Negative for acute process. Chest X-Ray 10/03/18 09:34 CONCLUSION: Left IJ line as above without pneumothorax. Marked elevation of the right hemidiaphragm Abdomen X-Ray 10/03/18 09:35 CONCLUSION: 1. Persistent marked gastric distention suggestive of gastric outlet obstruction. Clinical correlation is recommended. 2. Nasogastric tube has its tip in the proximal stomach. 3. Degenerative changes throughout the thoracolumbar spine. Procedures: 09/21/2018: EGD 09/22/2018: Paracentesis 4200 mL Assessment and Plan Pertinent Non-Medical Issues: Psychosocial: He was born in [place] and had been living in [place] with his , but came to [place] where his daughter lives for support during his worsening physical condition. He was previously and has 1 child from that union. Currently not in contact. Spiritual: Storehouse Clerk available. Legal: is reportedly the POA but no paperwork available. Patient elected his daughter, Tricia, as his HCS at this admission. Ethical issues impacting care: None noted. . Important Contacts: Daughter: Tricia King . Prognosis: His prognosis is guarded. He is of advanced age with severe, recurrent ascites. He has a history of liver cirrhosis, alcohol related, hepatitis C status post treatment and liver cancer status post 1 treatment of chemo and radiation. His ammonia level remains elevated lactulose 4 times daily and rifaximin twice daily. His INR is elevated at 1.5 and bilirubin elevated at 2.8. Per the daughter no [facility]. He is at significant risk for recurrent hospitalizations, complications and decline. . Code Status: Full Code Plan: PLAN: Legal decision maker: At this time the patient appears capacitated for decision-making, however refers all medical decision making to his daughter. He has completed a healthcare surrogate naming her is medical decision-maker. Goals: Aggressive CODE STATUS: FULL CODE SYMPTOMS: * Dyspnea: Chest x-ray shows some atelectasis, bibasilar airspace disease. Abdomen is distended and exerting pressure on the diaphragm. He became hypoxic , hypotensive and tachypneic this morning requiring intubation. He remains on ventilator support. * Pain: At risk for multiple sources of pain to include abdominal distention, invasive lines, restraints, bedbound status. He is on a fentanyl drip for pain management at this time. Palliative care will continue to follow the patient during hospital course as condition evolves, to assist patient/decision-maker with understanding of their medical conditions, weighing benefits/burdens of treatment options, for clarification of goals of treatment. Additionally will assist with any symptoms of palliative concern. .
[2018-10-03 17:01] LABS: ABG Base Excess -5.7 mmol/L (-2-2); ABG PCO2 33 mmHg (38-42); ABG PO2 102 mmHG (61-120)
[2018-10-03 17:16] LABS: Hematocrit 23.3 % (39.0-51.0); Hemoglobin 8.1 gm/dL (13.0-17.0)
[2018-10-03 17:30] LABS: Activated Partial Thrombo Time 60.4 sec (23.4-31.7); INR 1.8 Ratio
[2018-10-03] MEDS: Midazolam 100 MG/100 ML Inj 100 MG/100 ML BAG IV.CONT PRN (18:45)
[2018-10-03] MEDS: fentaNYL 10 mcg/mL Premix Drip 2,500 MCG/250 ML BAG IV.SIG PRN (19:00)
[2018-10-03] MEDS: Norepinephrine Inj 16 MG in Sodium Chlor 0.9% Inj 234 ML IV.CONT PRN (19:47)
[2018-10-03] MEDS: Pantoprazole Inj 80 MG in Sodium Chlor 0.9% Inj 100 ML IV.CONT SCH (20:53)
[2018-10-03] MEDS: Chlorhexidine 0.12% Oral Kit 15 ML UDC OROPHARYNG SCH (20:54)
[2018-10-03 22:13] LABS: Hemoglobin 7.6 gm/dL (13.0-17.0)
[2018-10-04 00:52] LABS: Baso % (Auto) 0.2 % (0.0-2.0); Eos # (Auto) 0.1 th/mm3 (0.0-0.4); Eos % (Auto) 0.7 % (0.0-4.0); Hematocrit 21.9 % (39.0-51.0); Hemoglobin 7.5 gm/dL (13.0-17.0); Lymph # (Auto) 0.8 th/mm3 (1.0-4.8); Lymph % (Auto) 5.2 % (9.0-44.0); Mean Corpuscular HGB Conc 34.4 % (32.0-36.0); Mean Corpuscular Volume 84.4 fL (80.0-100.0); Mean Platelet Volume 10.9 fL (7.0-11.0); Mono # (Auto) 0.9 th/mm3 (0.0-0.9); Mono % (Auto) 5.5 % (0.0-8.0); Neut % (Auto) 88.4 % (16.0-70.0); Platelet Count 66 th/mm3 (150-450); Red Blood Count 2.59 mil/mm3 (4.50-5.90); Red Cell Distribution Width 16.4 % (11.6-17.2); White Blood Count 15.8 th/mm3 (4.0-11.0)
[2018-10-04 00:54] LABS: Activated Partial Thrombo Time 43.4 sec (23.4-31.7); INR 1.9 Ratio
[2018-10-04 01:15] LABS: Carbon Dioxide 24.4 meq/L (21.0-32.0); Potassium 4.8 meq/L (3.5-5.1)
[2018-10-04 01:16] LABS: Calcium 7.6 mg/dL (8.5-10.1)
[2018-10-04] MEDS ORDERED: Phytonadione Inj 10 MG in Sodium Chlor 0.9% Inj 50 ML IV.SIG ONE (01:40)
[2018-10-04] MEDS: fentaNYL 10 mcg/mL Premix Drip 2,500 MCG/250 ML BAG IV.SIG PRN (01:50)
[2018-10-04] MEDS: rifAXIMin 550 MG Tablet PO SCH ×2 (02:32→15:44)
[2018-10-04] MEDS: Sodium Bicarbonate 8.4% Inj 150 MEQ in Water for Inj, Sterile 850 ML IV.CONT SCH (03:11)
[2018-10-04] MEDS: Oral Hygiene Kit OROPHARYNG SCH ×3 (03:12→15:44)
[2018-10-04] MEDS: Midazolam 100 MG/100 ML Inj 100 MG/100 ML BAG IV.CONT PRN (04:00)
[2018-10-04 04:20] LABS: Eosinophils 1 % (0-4); Monocytes 5 % (0-8); Toxic Granulation 1+
[2018-10-04 04:55] LABS: Albumin 2.9 g/dL (3.4-5.0); Anion Gap 13 meq/L (5-15); Blood Urea Nitrogen 55 mg/dL (7-18); Calcium 7.7 mg/dL (8.5-10.1); Carbon Dioxide 26.1 meq/L (21.0-32.0); Chloride 104 meq/L (98-107); Glomerular Filtration Rate 24 mL/min (>89); Glucose,Random 111 mg/dL (74-106); Magnesium 1.8 mg/dL (1.5-2.5); Potassium 4.7 meq/L (3.5-5.1); Sodium 143 meq/L (136-145)
[2018-10-04 04:56] LABS: Phosphorus 4.7 mg/dL (2.5-4.9)
--- NOTE | 2018-10-04 05:17 | XR ---
EXAM DATE: 10/04/2018 4:41 AM EST AGE/SEX: 78 years / Male INDICATIONS: Shortness of breath. CLINICAL DATA: This is the patient's subsequent encounter. Patient reports that signs and symptoms h ave been present for 2 weeks and indicates a pain score of Nonresponsive. MEDICAL/SURGICAL HISTORY: . Anemia. Cirrhosis. Hepatitis C. Renal failure. Stroke. Carcinoma, l iver. Appendectomy. COMPARISON: [facility], CHEST 1V SINGLE AP, 10/03/2018. . FINDINGS: Endotracheal tube in good position. NG enters stomach. Left central line in superior vena cava. [place] kiko right hemidiaphragm with right basilar airspace, stable. No pneumothorax. CONCLUSION: Support apparatus in good position. Stable elevated right hemidiaphragm and mild basilar airspace dis ease. Electronically signed by: Cresencio Morales MD Board Certified Radiologist 10/04/2018 5:15 AM EST
[2018-10-04 05:44] LABS: Alanine Aminotransferase 1044 U/L (12-78); Alkaline Phosphatase 93 U/L (45-117); Thyroid Stimulating Hormone 0.665 uIU/mL (0.358-3.740); Total Protein 5.2 g/dL (6.4-8.2); Vancomycin,Random 15.6 Comment
[2018-10-04 05:45] LABS: Aspartate Aminotransferase 3083 U/L (15-37)
[2018-10-04 06:05] LABS: ABG Base Excess 0.5 mmol/L (-2-2); ABG PCO2 31 mmHg (38-42); ABG PO2 91 mmHG (61-120)
[2018-10-04] MEDS: Piperacil/Tazo 3.375 GM Premix 3.375 GM/50 ML PIGGYBACK IV.SIG SCH ×2 (06:35→13:04)
[2018-10-04] MEDS: Octreotide Inj 500 MCG in Sodium Chlor 0.9% Inj 500 ML IV.CONT SCH ×2 (06:36→17:51)
[2018-10-04] MEDS: Pantoprazole Inj 80 MG in Sodium Chlor 0.9% Inj 100 ML IV.CONT SCH ×2 (06:36→17:53)
[2018-10-04 08:40] VITALS: O2SAT 100
[2018-10-04] MEDS: Artificial Tears Opth Drops 15 ML Bottle EACH EYE SCH ×2 (08:50→15:45)
[2018-10-04] MEDS: Vasopressin Inj 40 UNIT in Dextrose 5% in Water Inj 98 ML IV.CONT PRN ×2 (08:50)
[2018-10-04] MEDS: Chlorhexidine 0.12% Oral Kit 15 ML UDC OROPHARYNG SCH ×2 (08:50→20:53)
[2018-10-04] MEDS: Senna/Docusate Sodium 8.6/50 MG Tablet PO SCH ×2 (08:50→20:53)
[2018-10-04] MEDS: Clotrimazole 1% Cream 15 GM Tube TOPICAL SCH ×2 (08:51→20:53)
[2018-10-04 09:16] LABS: Mean Corpuscular HGB Conc 34.7 % (32.0-36.0); Mean Corpuscular Hemoglobin 30.1 pg (27.0-34.0); Mean Corpuscular Volume 86.7 fL (80.0-100.0); Mean Platelet Volume 10.4 fL (7.0-11.0); Platelet Count 60 th/mm3 (150-450); Red Cell Distribution Width 16.7 % (11.6-17.2); White Blood Count 13.2 th/mm3 (4.0-11.0)
--- NOTE | 2018-10-04 09:34 | P.PNCC ---
Subjective Subjective Remarks/Hospital Course: 09/22: Overnight the patient underwent EGD 5 columns of esophageal varices was located but no bleeding was noted per large blood clot was noted in the fundus and the duodenum 0 hemoglobin and hematocrits continue last hemoglobin noted to be 7.9. The patient continues on Protonix and octreotide infusions currently. Patient was noted to have a low normal blood pressure on propofol infusion this is been discontinued. Versed and fentanyl infusions initiated to maintain ventilator synchrony. Patient noted to have acute kidney injury creatinine downtrending slightly peer nephrology has been consulted appreciate recommendations per patient with known ascites last known paracentesis approximately 4 months ago peer INR within normal limits invasive radiology has been consulted for possible paracentesis. 09/23: The patient underwent CT-guided paracentesis yesterday 5.2 L removed the patient's FiO2 requirements continue to decrease PEEP has been decreased down to 5 FiO2 of 40%. Urine output 770 cc in 24hr. Lactulose enemas have been added to medication regimen twice daily secondary to hyperammonemia. 09/24: Afebrile. Continues with low urine output. Ventilator settings stable. Went to A. fib with RVR. Laboratories pending. EKG pending. On fentanyl drip sedation 100 mcg an hour. 09/25: NG tube placed today. Remains on the ventilator. Withdraws to pain. Positive cough and gag. Ammonia level down to 84. 09/26: Currently resting in bed in no acute distress. Minimally responsive on the ventilator off all sedation. MRI of the brain currently pending. Ammonia level is currently 91. 09/27: Afebrile. More awake today. MRI brain revealed no acute findings. Currently on CPAP trial. 09/28: Decompressed stomach this a.m. Appears comfortable and tolerating CPAP trials. We will give 1 dose of furosemide attempt extubate today if minimal ascites evaluated. 09/29 Patient was extubated yesterday pulled his NGT and PIV overnight. Afebrile. s/p Paracentesis with removal 4L. Afebrile. 09/30 Patient is lying in bed in NAD. Afebrile. 10/01: Afebrile. Resting in bed in no acute distress. Tolerating clear liquid diet. Ammonia level is 34. Positive BM. SUBJECTIVE: 10/03: Patient hypotensive this a.m. and tachypneic. Emergently intubated using glide scope. Currently norepinephrine drip. Stat central line placed. All a.m. labs are currently pending. 10/04 Patient was intubated yesterday. Sedated with Versed and Fentanyl drips. On Levophed 14 mics, Vasopressin 0.04 and bicarb drip. In addition he is on Octreotide and Protonix drips. Objective Vital Signs / I&O: Vital Signs 10/03/18 09:23 10/03/18 09:25 10/03/18 09:28 Temperature Pulse Rate 80 80 80 Respiratory Rate 16 16 16 Blood Pressure 133/58 L 133/60 123/55 L Pulse Oximetry 100 100 100 10/03/18 09:30 10/03/18 09:33 10/03/18 09:35 Temperature Pulse Rate 81 80 78 Respiratory Rate 16 16 16 Blood Pressure 107/48 L 95/50 L 95/43 L Pulse Oximetry 100 100 100 10/03/18 09:38 10/03/18 09:40 10/03/18 09:43 Temperature Pulse Rate 78 79 78 Respiratory Rate 16 16 16 Blood Pressure 87/43 L 81/40 L 72/40 L Pulse Oximetry 100 100 100 10/03/18 09:45 10/03/18 10:00 10/03/18 10:15 Temperature Pulse Rate 77 75 74 Respiratory Rate 16 16 16 Blood Pressure 70/40 L 103/50 L 104/51 L Pulse Oximetry 100 100 100 10/03/18 10:30 10/03/18 10:46 10/03/18 10:59 Temperature Pulse Rate 75 75 75 Respiratory Rate 18 22 22 Blood Pressure 110/52 L 130/60 130/60 Pulse Oximetry 100 100 10/03/18 11:00 10/03/18 11:15 10/03/18 11:30 Temperature Pulse Rate 77 78 77 Respiratory Rate 23 23 22 Blood Pressure 133/59 L 129/59 L 121/57 L Pulse Oximetry 100 100 100 10/03/18 11:40 10/03/18 11:45 10/03/18 11:53 Temperature Pulse Rate 78 76 76 Respiratory Rate 22 23 22 Blood Pressure 121/57 L 126/61 Pulse Oximetry 100 100 100 10/03/18 12:00 10/03/18 12:35 10/03/18 13:43 Temperature 98.2 F Pulse Rate 71 68 Respiratory Rate 23 22 25 H Blood Pressure 120/55 L 93/45 L Pulse Oximetry 100 100 100 10/03/18 14:00 10/03/18 14:20 10/03/18 15:43 Temperature 90.0 F L Pulse Rate 75 75 74 Respiratory Rate 24 24 Blood Pressure 98/50 L Pulse Oximetry 100 100 10/03/18 15:45 10/03/18 16:00 10/03/18 16:49 Temperature 92.1 F L 98.0 F 92.8 F L Pulse Rate 74 74 77 Respiratory Rate 24 23 24 Blood Pressure 91/51 L 104/53 L 111/51 L Pulse Oximetry 100 100 98 10/03/18 17:18 10/03/18 18:00 10/03/18 20:00 Temperature 92.8 F L Pulse Rate 77 73 Respiratory Rate 24 Blood Pressure 113/53 L Pulse Oximetry 99 98 10/03/18 20:09 10/03/18 20:15 10/03/18 20:45 Temperature 94.6 F L Pulse Rate 73 74 78 Respiratory Rate 24 24 Blood Pressure 123/58 L Pulse Oximetry 99 100 10/03/18 20:50 10/03/18 20:55 10/03/18 21:00 Temperature 94.8 F L 95.0 F L 95.0 F L Pulse Rate 78 79 79 Respiratory Rate 24 24 24 Blood Pressure 118/56 L 110/53 L 109/56 L Pulse Oximetry 100 100 99 10/03/18 21:05 10/03/18 21:10 10/03/18 21:15 Temperature 95.2 F L 95.2 F L 95.4 F L Pulse Rate 80 79 79 Respiratory Rate 24 24 24 Blood Pressure 109/53 L 107/53 L 100/53 L Pulse Oximetry 100 100 100 10/03/18 21:20 10/03/18 21:25 10/03/18 21:30 Temperature 95.4 F L 95.5 F L 95.5 F L Pulse Rate 79 79 79 Respiratory Rate 24 24 24 Blood Pressure 103/53 L 93/50 L 95/54 L Pulse Oximetry 100 100 100 10/03/18 21:35 10/03/18 21:40 10/03/18 21:45 Temperature 95.7 F L 95.7 F L 95.9 F L Pulse Rate 77 79 78 Respiratory Rate 24 24 24 Blood Pressure 93/53 L 95/55 L 91/52 L Pulse Oximetry 100 99 100 10/03/18 21:50 10/03/18 21:55 10/03/18 22:00 Temperature 96.1 F L 96.1 F L 96.3 F L Pulse Rate 78 77 80 Respiratory Rate 24 24 24 Blood Pressure 101/51 L 109/54 L 87/45 L Pulse Oximetry 100 100 100 10/03/18 22:05 10/03/18 22:10 10/03/18 22:15 Temperature 96.3 F L 96.4 F L 96.4 F L Pulse Rate 76 78 78 Respiratory Rate 24 24 24 Blood Pressure 105/53 L 105/51 L 109/53 L Pulse Oximetry 99 100 100 10/03/18 22:20 10/03/18 22:25 10/03/18 22:30 Temperature 96.6 F L 96.6 F L 96.8 F L Pulse Rate 78 78 79 Respiratory Rate 24 24 24 Blood Pressure 101/51 L 108/51 L 104/50 L Pulse Oximetry 100 99 99 10/03/18 22:35 10/03/18 22:40 10/03/18 22:45 Temperature 96.8 F L 97.0 F L 97.0 F L Pulse Rate 78 79 78 Respiratory Rate 24 24 24 Blood Pressure 105/54 L 101/51 L 102/54 L Pulse Oximetry 99 99 99 10/03/18 23:00 10/03/18 23:27 10/04/18 00:15 Temperature 98.4 F Pulse Rate 80 79 Respiratory Rate 24 24 24 Blood Pressure 94/52 L Pulse Oximetry 98 98 10/04/18 00:20 10/04/18 00:25 10/04/18 00:30 Temperature 98.4 F 98.6 F 98.6 F Pulse Rate 80 79 80 Respiratory Rate 24 24 24 Blood Pressure 82/41 L 84/49 L 98/53 L Pulse Oximetry 99 98 98 10/04/18 00:35 10/04/18 00:40 10/04/18 00:45 Temperature 98.6 F 98.6 F 98.6 F Pulse Rate 80 79 82 Respiratory Rate 24 24 24 Blood Pressure 85/45 L 87/50 L 118/57 L Pulse Oximetry 99 98 97 10/04/18 00:50 10/04/18 00:55 10/04/18 01:00 Temperature 98.6 F 98.4 F 98.4 F Pulse Rate 79 79 80 Respiratory Rate 24 24 24 Blood Pressure 101/51 L 97/51 L 96/52 L Pulse Oximetry 99 99 99 10/04/18 01:05 10/04/18 01:10 10/04/18 01:15 Temperature 98.4 F 98.4 F 98.4 F Pulse Rate 79 79 79 Respiratory Rate 24 24 24 Blood Pressure 93/50 L 94/51 L 96/52 L Pulse Oximetry 100 99 99 10/04/18 01:20 10/04/18 01:25 10/04/18 01:30 Temperature 98.4 F 98.4 F 98.4 F Pulse Rate 79 79 78 Respiratory Rate 24 24 24 Blood Pressure 96/53 L 96/52 L 95/53 L Pulse Oximetry 100 100 100 10/04/18 01:35 10/04/18 01:40 10/04/18 01:45 Temperature 98.4 F 98.4 F 98.4 F Pulse Rate 79 79 78 Respiratory Rate 24 24 24 Blood Pressure 98/54 L 101/52 L 97/53 L Pulse Oximetry 100 100 99 10/04/18 01:50 10/04/18 01:55 10/04/18 02:00 Temperature 98.4 F 98.4 F 98.4 F Pulse Rate 78 78 79 Respiratory Rate 24 24 24 Blood Pressure 100/53 L 96/53 L 100/52 L Pulse Oximetry 100 99 99 10/04/18 02:05 10/04/18 02:10 10/04/18 02:15 Temperature 98.4 F 98.4 F 98.4 F Pulse Rate 77 78 76 Respiratory Rate 24 24 24 Blood Pressure 98/53 L 97/52 L 98/53 L Pulse Oximetry 100 99 99 10/04/18 03:04 10/04/18 03:30 10/04/18 03:40 Temperature 98.4 F 98.2 F 98.2 F Pulse Rate 77 77 77 Respiratory Rate 24 24 24 Blood Pressure 96/49 L 101/53 L 105/55 L Pulse Oximetry 98 99 10/04/18 03:48 10/04/18 03:49 10/04/18 03:50 Temperature 98.2 F Pulse Rate 77 75 Respiratory Rate 24 24 24 Blood Pressure 108/51 L Pulse Oximetry 99 100 10/04/18 04:00 10/04/18 04:05 10/04/18 04:10 Temperature 98.2 F 98.2 F Pulse Rate 76 76 78 Respiratory Rate 24 24 Blood Pressure 101/54 L 106/55 L Pulse Oximetry 99 99 10/04/18 04:20 10/04/18 04:30 10/04/18 04:40 Temperature 98.4 F 98.4 F 98.4 F Pulse Rate 77 77 76 Respiratory Rate 24 24 24 Blood Pressure 88/42 L 119/59 L 114/54 L Pulse Oximetry 98 99 99 10/04/18 04:50 10/04/18 05:00 10/04/18 05:10 Temperature 98.2 F 98.1 F 97.9 F Pulse Rate 75 70 76 Respiratory Rate 24 24 24 Blood Pressure 114/52 L 106/52 L 93/48 L Pulse Oximetry 99 93 L 100 10/04/18 05:20 10/04/18 05:30 10/04/18 05:40 Temperature 97.7 F 97.5 F L 97.5 F L Pulse Rate 74 73 72 Respiratory Rate 24 24 24 Blood Pressure 118/59 L 109/53 L 105/50 L Pulse Oximetry 100 100 100 10/04/18 05:44 10/04/18 05:50 10/04/18 06:00 Temperature 97.6 F 97.5 F L 97.5 F L Pulse Rate 72 73 73 Respiratory Rate 24 24 24 Blood Pressure 105/50 L 110/54 L 114/56 L Pulse Oximetry 100 100 100 10/04/18 06:10 10/04/18 06:20 10/04/18 06:30 Temperature 97.5 F L 97.7 F 97.9 F Pulse Rate 74 74 73 Respiratory Rate 24 24 24 Blood Pressure 116/58 L 120/60 117/58 L Pulse Oximetry 100 100 100 10/04/18 06:40 10/04/18 06:50 10/04/18 07:00 Temperature 98.1 F 98.2 F 98.4 F Pulse Rate 76 76 76 Respiratory Rate 24 24 24 Blood Pressure 104/54 L 99/51 L 96/51 L Pulse Oximetry 98 98 98 10/04/18 07:10 10/04/18 07:20 10/04/18 07:30 Temperature 98.6 F 98.8 F 98.8 F Pulse Rate 76 76 75 Respiratory Rate 24 24 24 Blood Pressure 105/53 L 101/53 L 102/53 L Pulse Oximetry 99 100 99 10/04/18 07:34 10/04/18 08:00 Temperature Pulse Rate 79 Respiratory Rate 24 24 Blood Pressure Pulse Oximetry 100 Intake & Output 10/03/18 10/04/18 10/04/18 18:59 06:59 18:59 Intake Total 3700 / 3700 5665.3 / 5665.3 20.2 / 20.2 Output Total 550 / 550 1175 / 1175 Balance 3150 / 3150 4490.3 / 4490.3 20.2 / 20.2 Weight 94 kg Intake: IV 1050 / 1050 5247.3 / 5247.3 20.2 / 20.2 Versed Inj 100 mg In 100 ml @ 1 114.5 / 114.5 MG/HR 1 mls/hr IV.CONT TITRATE PRN Rx#:[id number] Levophed Inj 16 MG In NS Inj 147 / 147 234 ML @ 2 MCG/MIN 1.87 mls/hr IV.CONT TITRATE PRN Rx#: [id number] SandoSTATIN Inj 500 MCG In NS 1000 / 1000 Inj 500 ML @ 50 MCG/HR 50.05 mls/hr IV.CONT .Q10H NALINI Rx#: [id number] Protonix Inj 80 MG In NS Inj 100 / 100 100 ML @ 10 mls/hr IV.CONT CONT NALINI Rx#:[id number] Sodium Bicarbonate 8.4% Inj 150 1000 / 1000 1586 / 1586 MEQ In Sterile Water for Inj 850 ML @ 150 mls/hr IV.CONT . Q6H40M NALINI Rx#:[id number] Pitressin Inj 40 UNIT In D5W 79.8 / 79.8 20.2 / 20.2 Inj 98 ML @ 0.04 UNITS/MIN 6 mls/hr IV.CONT CONT PRN Rx#: [id number] Vitamin K Inj 10 MG In NS Inj 51 / 51 50 ML @ 102 mls/hr IV.SIG ONCE ONE Rx#:[id number] Zosyn 3.375 GM Premix 3.375 gm 50 / 50 100 / 100 In 50 ml @ 100 mls/hr IV.SIG Q6H NALINI Rx#:[id number] Vancomycin Inj 1,500 MG In NS 515 / 515 Inj 500 ML @ 257.5 mls/hr IV. SIG ONCE ONE Rx#:[id number] fentaNYL 10 mcg/mL Premix Drip 358 / 358 2,500 mcg In 250 ml @ 50 MCG/HR 5 mls/hr IV.SIG TITRATE PRN Rx #:[id number] Intake (Blood Product) Amt 2650 / 2650 418 / 418 Plasma Thawed 5 Day Acda Unit 194 / 194 [id number] Plasma Thawed 5 Day Cp2d Unit 267 / 267 [id number] Plasma Thawed 5 Day Cp2d Unit 338 / 338 [id number] Pre-Pooled Cryo Thawed 10units 231 / 231 Unit [id number] Pre-Pooled Cryo Thawed 10units 224 / 224 Unit [id number] Pre-Pooled Cryo Thawed 10units 214 / 214 Unit [id number] Rbc As-3 Leukoreduced Unit 400 / 400 [id number] Rbc As-3 Leukoreduced Unit 400 / 400 [id number] Rbc As-3 Leukoreduced Unit 400 / 400 [id number] Rbc As-3 Leukoreduced Unit 400 / 400 [id number] Output: Urine 0 / 0 Urine Amount (Catheter) 825 / 825 Indwelling Urethral Catheter 825 / 825 Gastric Drainage 550 / 550 350 / 350 Orogastric Tube 550 / 550 350 / 350 Other: Date of Last Bowel Movement 10/02/18 10/02/18 # Bowel Movements 0 0 Result Diagrams: 10/04/18 00:17 10/04/18 04:17 Other Results: Laboratory Results - last 12 hr 10/03/18 10/03/18 10/03/18 22:00 22:00 23:50 WBC RBC Hgb 7.6 L Hct 22.0 L MCV MCH MCHC RDW Plt Count MPV Prelim Diff (Auto) Neut % (Auto) Lymph % (Auto) [place] % (Auto) Eos % (Auto) Baso % (Auto) Neut # (Auto) Lymph # (Auto) [place] # (Auto) Eos # (Auto) Baso # (Auto) WBC Differential Seg Neuts % (Manual) Band Neuts % (Manual) Monocytes % (Manual) Eosinophils % (Manual) Abs Neuts (Manual) Differential Comment Toxic Granulation Platelet Estimate Platelet Morphology PT INR APTT Fibrinogen Puncture Site Patient Temperature O2 Saturation ABG pH ABG pCO2 ABG pO2 ABG HCO3 ABG O2 Content ABG Base Excess ABG Methemoglobin [place] Test Hemoglobin Carboxyhemoglobin O2 Delivery Device Vent Setting Inspired O2 Critical Value Sodium Potassium Chloride Carbon Dioxide Anion Gap BUN Creatinine Estimated GFR POC Glucose 141 H Random Glucose Lactic Acid 9.6 H* Calcium Phosphorus Magnesium Total Bilirubin AST ALT Alkaline Phosphatase Ammonia Total Protein Albumin TSH Random Vancomycin Blood Bank Comment 10/04/18 10/04/18 10/04/18 00:14 00:17 00:17 WBC 15.8 H RBC 2.59 L Hgb 7.5 L Hct 21.9 L MCV 84.4 D MCH 29.0 MCHC 34.4 RDW 16.4 D Plt Count 66 L D MPV 10.9 Prelim Diff (Auto) Slide review pending Neut % (Auto) 88.4 H Lymph % (Auto) 5.2 L [place] % (Auto) 5.5 Eos % (Auto) 0.7 Baso % (Auto) 0.2 Neut # (Auto) 14.0 H Lymph # (Auto) 0.8 L [place] # (Auto) 0.9 Eos # (Auto) 0.1 Baso # (Auto) 0.0 WBC Differential Manual diff final Seg Neuts % (Manual) 66 Band Neuts % (Manual) 28 H Monocytes % (Manual) 5 Eosinophils % (Manual) 1 Abs Neuts (Manual) 14.9 H Differential Comment . Toxic Granulation 1+ H Platelet Estimate Low L Platelet Morphology Enlarged H PT INR APTT Fibrinogen Puncture Site Patient Temperature O2 Saturation ABG pH ABG pCO2 ABG pO2 ABG HCO3 ABG O2 Content ABG Base Excess ABG Methemoglobin [place] Test Hemoglobin Carboxyhemoglobin O2 Delivery Device Vent Setting Inspired O2 Critical Value Sodium 144 Potassium 4.8 Chloride 105 Carbon Dioxide 24.4 D Anion Gap 15 BUN 57 H Creatinine 2.54 H Estimated GFR 25 L POC Glucose Random Glucose 133 H Lactic Acid Calcium 7.6 L Phosphorus Magnesium Total Bilirubin AST ALT Alkaline Phosphatase Ammonia 42 H Total Protein Albumin TSH Random Vancomycin Blood Bank Comment 10/04/18 10/04/18 10/04/18 00:17 01:41 04:17 WBC RBC Hgb Hct MCV MCH MCHC RDW Plt Count MPV Prelim Diff (Auto) Neut % (Auto) Lymph % (Auto) [place] % (Auto) Eos % (Auto) Baso % (Auto) Neut # (Auto) Lymph # (Auto) [place] # (Auto) Eos # (Auto) Baso # (Auto) WBC Differential Seg Neuts % (Manual) Band Neuts % (Manual) Monocytes % (Manual) Eosinophils % (Manual) Abs Neuts (Manual) Differential Comment Toxic Granulation Platelet Estimate Platelet Morphology PT 19.0 H INR 1.9 APTT 43.4 H D Fibrinogen 119 L Puncture Site Patient Temperature O2 Saturation ABG pH ABG pCO2 ABG pO2 ABG HCO3 ABG O2 Content ABG Base Excess ABG Methemoglobin [place] Test Hemoglobin Carboxyhemoglobin O2 Delivery Device Vent Setting Inspired O2 Critical Value Sodium 143 Potassium 4.7 Chloride 104 Carbon Dioxide 26.1 Anion Gap 13 BUN 55 H Creatinine 2.61 H Estimated GFR 24 L POC Glucose Random Glucose 111 H Lactic Acid Calcium 7.7 L Phosphorus 4.7 Magnesium 1.8 Total Bilirubin 8.7 H AST 3083 H ALT 1044 H Alkaline Phosphatase 93 Ammonia Total Protein 5.2 L Albumin 2.9 L TSH 0.665 Random Vancomycin 15.6 Blood Bank Comment 10/04/18 10/04/18 10/04/18 04:17 05:51 07:27 WBC RBC Hgb Hct MCV MCH MCHC RDW Plt Count MPV Prelim Diff (Auto) Neut % (Auto) Lymph % (Auto) [place] % (Auto) Eos % (Auto) Baso % (Auto) Neut # (Auto) Lymph # (Auto) [place] # (Auto) Eos # (Auto) Baso # (Auto) WBC Differential Seg Neuts % (Manual) Band Neuts % (Manual) Monocytes % (Manual) Eosinophils % (Manual) Abs Neuts (Manual) Differential Comment Toxic Granulation Platelet Estimate Platelet Morphology PT INR APTT Fibrinogen Puncture Site Right radial Patient Temperature 98.6 O2 Saturation 95 ABG pH 7.50 H ABG pCO2 31 L ABG pO2 91 ABG HCO3 23 ABG O2 Content 10.3 L ABG Base Excess 0.5 ABG Methemoglobin 1.6 [place]ierno Test Present Hemoglobin 7.6 L* Carboxyhemoglobin 1.5 O2 Delivery Device Ventilator Vent Setting Prvc/ac 24 vt 550 Inspired O2 40 Critical Value Yes Sodium Potassium Chloride Carbon Dioxide Anion Gap BUN Creatinine Estimated GFR POC Glucose 111 H Random Glucose Lactic Acid 7.9 H* Calcium Phosphorus Magnesium Total Bilirubin AST ALT Alkaline Phosphatase Ammonia Total Protein Albumin TSH Random Vancomycin Blood Bank Comment Imaging: Paracentesis CT 09/22/18 14:08 CONCLUSION: 1. Uncomplicated CT Guided paracentesis. Abdomen/Bladder Ultrasound 09/23/18 00:00 CONCLUSION: 1. Echogenic kidneys consistent with medical renal disease. 2. Cirrhotic liver with ascites. 3. Small right pleural effusion, likely hepatic hydrothorax. Head MRI 09/26/18 00:00 CONCLUSION: 1. Negative for acute process. Abdomen X-Ray 10/03/18 09:35 CONCLUSION: 1. Persistent marked gastric distention suggestive of gastric outlet obstruction. Clinical correlation is recommended. 2. Nasogastric tube has its tip in the proximal stomach. 3. Degenerative changes throughout the thoracolumbar spine. Chest X-Ray 10/04/18 06:00 CONCLUSION: Support apparatus in good position. Stable elevated right hemidiaphragm and mild basilar airspace disease. Objective Remarks: GENERAL: 78-year-old male currently orotracheally intubated SKIN: Warm and dry. Petechiae over her abdomen and left hip HEAD: Atraumatic. Normocephalic. EYES: Pupils equal and round about 3 meals bilaterally reactive.. Slight scleral icterus. No injection or drainage. ENT: No nasal bleeding or discharge. Mucous membranes pink and moist. Left IJ CVL in place NECK: Trachea midline. No JVD. CARDIOVASCULAR: RRR. S1, S2. No S4. S1, S2. No S4. RESPIRATORY: Rhonchorous breath sounds appreciated no wheezing. GASTROINTESTINAL: Distended. Slightly tympanic. Bowel sounds are hypoactive. MUSCULOSKELETAL: 1+ bilateral pedal edema NEUROLOGICAL: Sedated and intubated. Procedures: 09/21- EGD 09/22-CT guided paracentesis 2.5 L removed Assessment and Plan - Assessment and Plan Plan: NEURO/PSYCH: History of stroke with residual aphasia Daily sedation vacation Goal of RA SS -2 Fentanyl/midazolam drips for sedation/analgesia while intubated MRI brain 09/26 without acute intracranial findings RESP: Acute respiratory failure Extubated 09/28. Reintubated 10/03 Continue with vent support keep sats >92%. Decrease RR 20 Ventilator bundle Head of bed at 30 degrees Albuterol/ipratropium aerosols every 4 hours with albuterol aerosols every 2 hours as needed dyspnea Spontaneous breathing trials and clinically indicated CV: Shock likely hemorrhagic plus or minus septic Essential hypertension Atrial fibrillation currently normal sinus rhythm Wean off pressors (On Levophed 14 mics and Vasopressin 0.04)Monitor HR and BP keep MAP>65mmHg Serial lactic acid monitoring till clear... trending down Place on Stress dose steroids- HC 50mg IV Q6 GI: Upper GI bleed secondary to esophageal varices now s/p banding Ischemic Hepatitis Hx Hep C Cirrhosis Hepatocellular carcinoma s/p TACE procedure Recurrent ascites Hyperammonemia Hypoalbuminemia N.p.o. status. NG tube to low inner wall suction Pantoprazole 8 mg an hour Octreotide drip 50 mcg an hour 09/21 GI consulted emergently, Dr. Beverly. Esophageal varices banded. Reportedly no active bleeding but unable to rule out gastric varices due to presence of clots in the stomach. 09/28- Paracentesis with removal 4.2L. 09/22paracentesis 5.2 L removed Xifaxan 550 twice daily and lactulose 30 cc 4 times daily. Ammonia level 42 today FEN/RENAL: MART (unknown baseline creatinine) Hypernatremia Hypophosphatemia Monitor renal function, I/O's, electrolytes replacement as needed Nephrology following. On SW+3amps bicarb @150ml/hr ID: Currently on ceftriaxone 2 g IV daily for SBP prophylaxis. FOllow up on sputum and blood cx from 10/03 Sputum culture no growth to date HEME: Acute blood loss anemia/normocytic Thrombocytopenia Coagulopathy with elevated INR s/p Transfer using 2 PRBCs 10/03 Monitor CBC daily. Follow trends. Monitor CBC ENDO: Sliding scale insulin aspart insulin/low regimen to maintain euglycemia every 6 hours TSH 0.163. Total T3 is low. Free T3 was/low normal. PROPH: SCDs for DVT prophylaxis. Pharmacologic DVT prophylaxis is contraindicated. Pantoprazole drip ACCESS: Left IJ CVL placed 10/03 Palliative care is following Prognosis is guarded giving MODS picture. Critical care time 35 minutes
[2018-10-04 09:40] LABS: Hematocrit 20.9 % (39.0-51.0); Hemoglobin 7.2 gm/dL (13.0-17.0)
[2018-10-04] MEDS: Insulin NovoLOG Aspart Correctional Sugar Inj SQ SCH ×3 (10:19→18:27)
--- NOTE | 2018-10-04 10:24 | P.PNNP ---
Subjective Interval history: He was intubated yesterday. On multiple drips which were noted. He is also on bicarbonate drip, but appears to fluid overloaded. Significant positive fluid balance in the past 24 hours. No metabolic acidosis. Doing poorly. Physical Exam Vital signs: Vital Signs 10/03/18 10:30 10/03/18 10:46 10/03/18 10:59 Temperature Pulse Rate 75 75 75 Respiratory Rate 18 22 22 Blood Pressure 110/52 L 130/60 130/60 Pulse Oximetry 100 100 10/03/18 11:00 10/03/18 11:15 10/03/18 11:30 Temperature Pulse Rate 77 78 77 Respiratory Rate 23 23 22 Blood Pressure 133/59 L 129/59 L 121/57 L Pulse Oximetry 100 100 100 10/03/18 11:40 10/03/18 11:45 10/03/18 11:53 Temperature Pulse Rate 78 76 76 Respiratory Rate 22 23 22 Blood Pressure 121/57 L 126/61 Pulse Oximetry 100 100 100 10/03/18 12:00 10/03/18 12:35 10/03/18 13:43 Temperature 98.2 F Pulse Rate 71 68 Respiratory Rate 23 22 25 H Blood Pressure 120/55 L 93/45 L Pulse Oximetry 100 100 100 10/03/18 14:00 10/03/18 14:20 10/03/18 15:43 Temperature 90.0 F L Pulse Rate 75 75 74 Respiratory Rate 24 24 Blood Pressure 98/50 L Pulse Oximetry 100 100 10/03/18 15:45 10/03/18 16:00 10/03/18 16:49 Temperature 92.1 F L 98.0 F 92.8 F L Pulse Rate 74 74 77 Respiratory Rate 24 23 24 Blood Pressure 91/51 L 104/53 L 111/51 L Pulse Oximetry 100 100 98 10/03/18 17:18 10/03/18 18:00 10/03/18 20:00 Temperature 92.8 F L Pulse Rate 77 73 Respiratory Rate 24 Blood Pressure 113/53 L Pulse Oximetry 99 98 10/03/18 20:09 10/03/18 20:15 10/03/18 20:45 Temperature 94.6 F L Pulse Rate 73 74 78 Respiratory Rate 24 24 Blood Pressure 123/58 L Pulse Oximetry 99 100 10/03/18 20:50 10/03/18 20:55 10/03/18 21:00 Temperature 94.8 F L 95.0 F L 95.0 F L Pulse Rate 78 79 79 Respiratory Rate 24 24 24 Blood Pressure 118/56 L 110/53 L 109/56 L Pulse Oximetry 100 100 99 10/03/18 21:05 10/03/18 21:10 10/03/18 21:15 Temperature 95.2 F L 95.2 F L 95.4 F L Pulse Rate 80 79 79 Respiratory Rate 24 24 24 Blood Pressure 109/53 L 107/53 L 100/53 L Pulse Oximetry 100 100 100 10/03/18 21:20 10/03/18 21:25 10/03/18 21:30 Temperature 95.4 F L 95.5 F L 95.5 F L Pulse Rate 79 79 79 Respiratory Rate 24 24 24 Blood Pressure 103/53 L 93/50 L 95/54 L Pulse Oximetry 100 100 100 10/03/18 21:35 10/03/18 21:40 10/03/18 21:45 Temperature 95.7 F L 95.7 F L 95.9 F L Pulse Rate 77 79 78 Respiratory Rate 24 24 24 Blood Pressure 93/53 L 95/55 L 91/52 L Pulse Oximetry 100 99 100 10/03/18 21:50 10/03/18 21:55 10/03/18 22:00 Temperature 96.1 F L 96.1 F L 96.3 F L Pulse Rate 78 77 80 Respiratory Rate 24 24 24 Blood Pressure 101/51 L 109/54 L 87/45 L Pulse Oximetry 100 100 100 10/03/18 22:05 10/03/18 22:10 10/03/18 22:15 Temperature 96.3 F L 96.4 F L 96.4 F L Pulse Rate 76 78 78 Respiratory Rate 24 24 24 Blood Pressure 105/53 L 105/51 L 109/53 L Pulse Oximetry 99 100 100 10/03/18 22:20 10/03/18 22:25 10/03/18 22:30 Temperature 96.6 F L 96.6 F L 96.8 F L Pulse Rate 78 78 79 Respiratory Rate 24 24 24 Blood Pressure 101/51 L 108/51 L 104/50 L Pulse Oximetry 100 99 99 10/03/18 22:35 10/03/18 22:40 10/03/18 22:45 Temperature 96.8 F L 97.0 F L 97.0 F L Pulse Rate 78 79 78 Respiratory Rate 24 24 24 Blood Pressure 105/54 L 101/51 L 102/54 L Pulse Oximetry 99 99 99 10/03/18 23:00 10/03/18 23:27 10/04/18 00:15 Temperature 98.4 F Pulse Rate 80 79 Respiratory Rate 24 24 24 Blood Pressure 94/52 L Pulse Oximetry 98 98 10/04/18 00:20 10/04/18 00:25 10/04/18 00:30 Temperature 98.4 F 98.6 F 98.6 F Pulse Rate 80 79 80 Respiratory Rate 24 24 24 Blood Pressure 82/41 L 84/49 L 98/53 L Pulse Oximetry 99 98 98 10/04/18 00:35 10/04/18 00:40 10/04/18 00:45 Temperature 98.6 F 98.6 F 98.6 F Pulse Rate 80 79 82 Respiratory Rate 24 24 24 Blood Pressure 85/45 L 87/50 L 118/57 L Pulse Oximetry 99 98 97 10/04/18 00:50 10/04/18 00:55 10/04/18 01:00 Temperature 98.6 F 98.4 F 98.4 F Pulse Rate 79 79 80 Respiratory Rate 24 24 24 Blood Pressure 101/51 L 97/51 L 96/52 L Pulse Oximetry 99 99 99 10/04/18 01:05 10/04/18 01:10 10/04/18 01:15 Temperature 98.4 F 98.4 F 98.4 F Pulse Rate 79 79 79 Respiratory Rate 24 24 24 Blood Pressure 93/50 L 94/51 L 96/52 L Pulse Oximetry 100 99 99 10/04/18 01:20 10/04/18 01:25 10/04/18 01:30 Temperature 98.4 F 98.4 F 98.4 F Pulse Rate 79 79 78 Respiratory Rate 24 24 24 Blood Pressure 96/53 L 96/52 L 95/53 L Pulse Oximetry 100 100 100 10/04/18 01:35 10/04/18 01:40 10/04/18 01:45 Temperature 98.4 F 98.4 F 98.4 F Pulse Rate 79 79 78 Respiratory Rate 24 24 24 Blood Pressure 98/54 L 101/52 L 97/53 L Pulse Oximetry 100 100 99 10/04/18 01:50 10/04/18 01:55 10/04/18 02:00 Temperature 98.4 F 98.4 F 98.4 F Pulse Rate 78 78 79 Respiratory Rate 24 24 24 Blood Pressure 100/53 L 96/53 L 100/52 L Pulse Oximetry 100 99 99 10/04/18 02:05 10/04/18 02:10 10/04/18 02:15 Temperature 98.4 F 98.4 F 98.4 F Pulse Rate 77 78 76 Respiratory Rate 24 24 24 Blood Pressure 98/53 L 97/52 L 98/53 L Pulse Oximetry 100 99 99 10/04/18 03:04 10/04/18 03:30 10/04/18 03:40 Temperature 98.4 F 98.2 F 98.2 F Pulse Rate 77 77 77 Respiratory Rate 24 24 24 Blood Pressure 96/49 L 101/53 L 105/55 L Pulse Oximetry 98 99 10/04/18 03:48 10/04/18 03:49 10/04/18 03:50 Temperature 98.2 F Pulse Rate 77 75 Respiratory Rate 24 24 24 Blood Pressure 108/51 L Pulse Oximetry 99 100 10/04/18 04:00 10/04/18 04:05 10/04/18 04:10 Temperature 98.2 F 98.2 F Pulse Rate 76 76 78 Respiratory Rate 24 24 Blood Pressure 101/54 L 106/55 L Pulse Oximetry 99 99 10/04/18 04:20 10/04/18 04:30 10/04/18 04:40 Temperature 98.4 F 98.4 F 98.4 F Pulse Rate 77 77 76 Respiratory Rate 24 24 24 Blood Pressure 88/42 L 119/59 L 114/54 L Pulse Oximetry 98 99 99 10/04/18 04:50 10/04/18 05:00 10/04/18 05:10 Temperature 98.2 F 98.1 F 97.9 F Pulse Rate 75 70 76 Respiratory Rate 24 24 24 Blood Pressure 114/52 L 106/52 L 93/48 L Pulse Oximetry 99 93 L 100 10/04/18 05:20 10/04/18 05:30 10/04/18 05:40 Temperature 97.7 F 97.5 F L 97.5 F L Pulse Rate 74 73 72 Respiratory Rate 24 24 24 Blood Pressure 118/59 L 109/53 L 105/50 L Pulse Oximetry 100 100 100 10/04/18 05:44 10/04/18 05:50 10/04/18 06:00 Temperature 97.6 F 97.5 F L 97.5 F L Pulse Rate 72 73 73 Respiratory Rate 24 24 24 Blood Pressure 105/50 L 110/54 L 114/56 L Pulse Oximetry 100 100 100 10/04/18 06:10 10/04/18 06:20 10/04/18 06:30 Temperature 97.5 F L 97.7 F 97.9 F Pulse Rate 74 74 73 Respiratory Rate 24 24 24 Blood Pressure 116/58 L 120/60 117/58 L Pulse Oximetry 100 100 100 10/04/18 06:40 10/04/18 06:50 10/04/18 07:00 Temperature 98.1 F 98.2 F 98.4 F Pulse Rate 76 76 76 Respiratory Rate 24 24 24 Blood Pressure 104/54 L 99/51 L 96/51 L Pulse Oximetry 98 98 98 10/04/18 07:10 10/04/18 07:20 10/04/18 07:30 Temperature 98.6 F 98.8 F 98.8 F Pulse Rate 76 76 75 Respiratory Rate 24 24 24 Blood Pressure 105/53 L 101/53 L 102/53 L Pulse Oximetry 99 100 99 10/04/18 07:34 10/04/18 08:00 Temperature Pulse Rate 79 Respiratory Rate 24 24 Blood Pressure Pulse Oximetry 100 Intake & Output 10/03/18 10/04/18 10/04/18 18:59 06:59 18:59 Intake Total 3700 / 3700 5665.3 / 5665.3 20.2 / 20.2 Output Total 550 / 550 1175 / 1175 Balance 3150 / 3150 4490.3 / 4490.3 20.2 / 20.2 Weight 94 kg Intake: IV 1050 / 1050 5247.3 / 5247.3 20.2 / 20.2 Versed Inj 100 mg In 100 ml @ 1 114.5 / 114.5 MG/HR 1 mls/hr IV.CONT TITRATE PRN Rx#:[id number] Levophed Inj 16 MG In NS Inj 147 / 147 234 ML @ 2 MCG/MIN 1.87 mls/hr IV.CONT TITRATE PRN Rx#: [id number] SandoSTATIN Inj 500 MCG In NS 1000 / 1000 Inj 500 ML @ 50 MCG/HR 50.05 mls/hr IV.CONT .Q10H NALINI Rx#: [id number] Protonix Inj 80 MG In NS Inj 100 / 100 100 ML @ 10 mls/hr IV.CONT CONT [facility] Rx#:[id number] Sodium Bicarbonate 8.4% Inj 150 1000 / 1000 1586 / 1586 MEQ In Sterile Water for Inj 850 ML @ 150 mls/hr IV.CONT . Q6H40M [facility] Rx#:[id number] Pitressin Inj 40 UNIT In D5W 79.8 / 79.8 20.2 / 20.2 Inj 98 ML @ 0.04 UNITS/MIN 6 mls/hr IV.CONT CONT PRN Rx#: [id number] Vitamin K Inj 10 MG In NS Inj 51 / 51 50 ML @ 102 mls/hr IV.SIG ONCE ONE Rx#:[id number] Zosyn 3.375 GM Premix 3.375 gm 50 / 50 100 / 100 In 50 ml @ 100 mls/hr IV.SIG Q6H [facility] Rx#:[id number] Vancomycin Inj 1,500 MG In NS 515 / 515 Inj 500 ML @ 257.5 mls/hr IV. SIG ONCE ONE Rx#:[id number] fentaNYL 10 mcg/mL Premix Drip 358 / 358 2,500 mcg In 250 ml @ 50 MCG/HR 5 mls/hr IV.SIG TITRATE PRN Rx #:[id number] Intake (Blood Product) Amt 2650 / 2650 418 / 418 Plasma Thawed 5 Day Acda Unit 194 / 194 [id number] Plasma Thawed 5 Day Cp2d Unit 267 / 267 [id number] Plasma Thawed 5 Day Cp2d Unit 338 / 338 [id number] Pre-Pooled Cryo Thawed 10units 231 / 231 Unit [id number] Pre-Pooled Cryo Thawed 10units 224 / 224 Unit [id number] Pre-Pooled Cryo Thawed 10units 214 / 214 Unit [id number] Rbc As-3 Leukoreduced Unit 400 / 400 [id number] Rbc As-3 Leukoreduced Unit 400 / 400 [id number] Rbc As-3 Leukoreduced Unit 400 / 400 [id number] Rbc As-3 Leukoreduced Unit 400 / 400 [id number] Output: Urine 0 / 0 Urine Amount (Catheter) 825 / 825 Indwelling Urethral Catheter 825 / 825 Gastric Drainage 550 / 550 350 / 350 Orogastric Tube 550 / 550 350 / 350 Other: Date of Last Bowel Movement 10/02/18 10/02/18 # Bowel Movements 0 0 Narrative: GENERAL: intubated on ventilator SKIN: Warm and dry. NECK: Supple, trachea midline. No JVD CARDIOVASCULAR: Regular rate and rhythm without murmurs, gallops, or rubs. RESPIRATORY: Breath sounds equal bilaterally. No accessory muscle use. Orally intubated GASTROINTESTINAL: Abdomen soft, non-tender, distended. +BS. OG tube MUSCULOSKELETAL: 2-3 + edema. BACK: Nontender without obvious deformity. No CVA tenderness. - Urinary Catheter Management Indwelling Temp Sensing Catheter Cath placed during this visit: yes, but has since been removed by the nurse Urethral indwelling: Yes Reason for continuing: Hourly intake/output Insertion date: 09/21/18 Insertion time: 20:00 Removal date: 09/25/18 Removal time: 15:45 Indwelling Urethral Catheter Cath placed during this visit: no Assessment and Plan - Assessment (1) Acute kidney failure Code(s): N17.9 - Acute kidney failure, unspecified Status: Acute (2) Respiratory failure Code(s): J96.90 - Respiratory failure, unspecified, unspecified whether with hypoxia or hypercapnia Status: Acute (3) Hepatocellular carcinoma Code(s): C22.0 - Liver cell carcinoma Status: Acute - Plan Acute kidney injury MART could be due to ATN. I will stop bicarbonate drip. Start diuresis. Poor prognosis. Avoid nephrotoxic agents. Respiratory failure Patient reintubated on 10/03. [employer] managing. Anemia Has received transfusion. Chronic liver disease and hepatocellular carcinoma Pantoprazole and octreotide gtt. Has had repeated paracentesis. Extremely poor prognosis.
[2018-10-04] MEDS: Hydrocortisone Sod Succinate 100 MG Vial IV.PUSH SCH ×3 (10:30→22:41)
[2018-10-04] MEDS ORDERED: Vancomycin Inj 1,500 MG in Sodium Chlor 0.9% Inj 500 ML IV.SIG ONE (12:00)
[2018-10-04 15:36] LABS: Hematocrit 23.3 % (39.0-51.0)
--- NOTE | 2018-10-04 16:17 | P.PNGI ---
Subjective Interval history: Patient is intubated sedated. He received 1 unit of blood today, some blood noted in the tubing from the OG tube <Yovany Pulido - Last Filed: 10/04/18 16:10> Physical Exam Vital signs: Vital Signs 10/03/18 16:49 10/03/18 17:18 10/03/18 18:00 Temperature 92.8 F L 92.8 F L Pulse Rate 77 77 73 Respiratory Rate 24 24 Blood Pressure 111/51 L 113/53 L Pulse Oximetry 98 99 10/03/18 20:00 10/03/18 20:09 10/03/18 20:15 Temperature Pulse Rate 73 74 Respiratory Rate 24 Blood Pressure Pulse Oximetry 98 99 10/03/18 20:45 10/03/18 20:50 10/03/18 20:55 Temperature 94.6 F L 94.8 F L 95.0 F L Pulse Rate 78 78 79 Respiratory Rate 24 24 24 Blood Pressure 123/58 L 118/56 L 110/53 L Pulse Oximetry 100 100 100 10/03/18 21:00 10/03/18 21:05 10/03/18 21:10 Temperature 95.0 F L 95.2 F L 95.2 F L Pulse Rate 79 80 79 Respiratory Rate 24 24 24 Blood Pressure 109/56 L 109/53 L 107/53 L Pulse Oximetry 99 100 100 10/03/18 21:15 10/03/18 21:20 10/03/18 21:25 Temperature 95.4 F L 95.4 F L 95.5 F L Pulse Rate 79 79 79 Respiratory Rate 24 24 24 Blood Pressure 100/53 L 103/53 L 93/50 L Pulse Oximetry 100 100 100 10/03/18 21:30 10/03/18 21:35 10/03/18 21:40 Temperature 95.5 F L 95.7 F L 95.7 F L Pulse Rate 79 77 79 Respiratory Rate 24 24 24 Blood Pressure 95/54 L 93/53 L 95/55 L Pulse Oximetry 100 100 99 10/03/18 21:45 10/03/18 21:50 10/03/18 21:55 Temperature 95.9 F L 96.1 F L 96.1 F L Pulse Rate 78 78 77 Respiratory Rate 24 24 24 Blood Pressure 91/52 L 101/51 L 109/54 L Pulse Oximetry 100 100 100 10/03/18 22:00 10/03/18 22:05 10/03/18 22:10 Temperature 96.3 F L 96.3 F L 96.4 F L Pulse Rate 80 76 78 Respiratory Rate 24 24 24 Blood Pressure 87/45 L 105/53 L 105/51 L Pulse Oximetry 100 99 100 10/03/18 22:15 10/03/18 22:20 10/03/18 22:25 Temperature 96.4 F L 96.6 F L 96.6 F L Pulse Rate 78 78 78 Respiratory Rate 24 24 24 Blood Pressure 109/53 L 101/51 L 108/51 L Pulse Oximetry 100 100 99 10/03/18 22:30 10/03/18 22:35 10/03/18 22:40 Temperature 96.8 F L 96.8 F L 97.0 F L Pulse Rate 79 78 79 Respiratory Rate 24 24 24 Blood Pressure 104/50 L 105/54 L 101/51 L Pulse Oximetry 99 99 99 10/03/18 22:45 10/03/18 23:00 10/03/18 23:27 Temperature 97.0 F L Pulse Rate 78 80 Respiratory Rate 24 24 24 Blood Pressure 102/54 L Pulse Oximetry 99 98 10/04/18 00:15 10/04/18 00:20 10/04/18 00:25 Temperature 98.4 F 98.4 F 98.6 F Pulse Rate 79 80 79 Respiratory Rate 24 24 24 Blood Pressure 94/52 L 82/41 L 84/49 L Pulse Oximetry 98 99 98 10/04/18 00:30 10/04/18 00:35 10/04/18 00:40 Temperature 98.6 F 98.6 F 98.6 F Pulse Rate 80 80 79 Respiratory Rate 24 24 24 Blood Pressure 98/53 L 85/45 L 87/50 L Pulse Oximetry 98 99 98 10/04/18 00:45 10/04/18 00:50 10/04/18 00:55 Temperature 98.6 F 98.6 F 98.4 F Pulse Rate 82 79 79 Respiratory Rate 24 24 24 Blood Pressure 118/57 L 101/51 L 97/51 L Pulse Oximetry 97 99 99 10/04/18 01:00 10/04/18 01:05 10/04/18 01:10 Temperature 98.4 F 98.4 F 98.4 F Pulse Rate 80 79 79 Respiratory Rate 24 24 24 Blood Pressure 96/52 L 93/50 L 94/51 L Pulse Oximetry 99 100 99 10/04/18 01:15 10/04/18 01:20 10/04/18 01:25 Temperature 98.4 F 98.4 F 98.4 F Pulse Rate 79 79 79 Respiratory Rate 24 24 24 Blood Pressure 96/52 L 96/53 L 96/52 L Pulse Oximetry 99 100 100 10/04/18 01:30 10/04/18 01:35 10/04/18 01:40 Temperature 98.4 F 98.4 F 98.4 F Pulse Rate 78 79 79 Respiratory Rate 24 24 24 Blood Pressure 95/53 L 98/54 L 101/52 L Pulse Oximetry 100 100 100 10/04/18 01:45 10/04/18 01:50 10/04/18 01:55 Temperature 98.4 F 98.4 F 98.4 F Pulse Rate 78 78 78 Respiratory Rate 24 24 24 Blood Pressure 97/53 L 100/53 L 96/53 L Pulse Oximetry 99 100 99 10/04/18 02:00 10/04/18 02:05 10/04/18 02:10 Temperature 98.4 F 98.4 F 98.4 F Pulse Rate 79 77 78 Respiratory Rate 24 24 24 Blood Pressure 100/52 L 98/53 L 97/52 L Pulse Oximetry 99 100 99 10/04/18 02:15 10/04/18 03:04 10/04/18 03:30 Temperature 98.4 F 98.4 F 98.2 F Pulse Rate 76 77 77 Respiratory Rate 24 24 24 Blood Pressure 98/53 L 96/49 L 101/53 L Pulse Oximetry 99 98 10/04/18 03:40 10/04/18 03:48 10/04/18 03:49 Temperature 98.2 F Pulse Rate 77 77 Respiratory Rate 24 24 24 Blood Pressure 105/55 L Pulse Oximetry 99 99 10/04/18 03:50 10/04/18 04:00 10/04/18 04:05 Temperature 98.2 F 98.2 F Pulse Rate 75 76 76 Respiratory Rate 24 24 Blood Pressure 108/51 L 101/54 L Pulse Oximetry 100 99 10/04/18 04:10 10/04/18 04:20 10/04/18 04:30 Temperature 98.2 F 98.4 F 98.4 F Pulse Rate 78 77 77 Respiratory Rate 24 24 24 Blood Pressure 106/55 L 88/42 L 119/59 L Pulse Oximetry 99 98 99 10/04/18 04:40 10/04/18 04:50 10/04/18 05:00 Temperature 98.4 F 98.2 F 98.1 F Pulse Rate 76 75 70 Respiratory Rate 24 24 24 Blood Pressure 114/54 L 114/52 L 106/52 L Pulse Oximetry 99 99 93 L 10/04/18 05:10 10/04/18 05:20 10/04/18 05:30 Temperature 97.9 F 97.7 F 97.5 F L Pulse Rate 76 74 73 Respiratory Rate 24 24 24 Blood Pressure 93/48 L 118/59 L 109/53 L Pulse Oximetry 100 100 100 10/04/18 05:40 10/04/18 05:44 10/04/18 05:50 Temperature 97.5 F L 97.6 F 97.5 F L Pulse Rate 72 72 73 Respiratory Rate 24 24 24 Blood Pressure 105/50 L 105/50 L 110/54 L Pulse Oximetry 100 100 100 10/04/18 06:00 10/04/18 06:10 10/04/18 06:20 Temperature 97.5 F L 97.5 F L 97.7 F Pulse Rate 73 74 74 Respiratory Rate 24 24 24 Blood Pressure 114/56 L 116/58 L 120/60 Pulse Oximetry 100 100 100 10/04/18 06:30 10/04/18 06:40 10/04/18 06:50 Temperature 97.9 F 98.1 F 98.2 F Pulse Rate 73 76 76 Respiratory Rate 24 24 24 Blood Pressure 117/58 L 104/54 L 99/51 L Pulse Oximetry 100 98 98 10/04/18 07:00 10/04/18 07:10 10/04/18 07:20 Temperature 98.4 F 98.6 F 98.8 F Pulse Rate 76 76 76 Respiratory Rate 24 24 24 Blood Pressure 96/51 L 105/53 L 101/53 L Pulse Oximetry 98 99 100 10/04/18 07:30 10/04/18 07:34 10/04/18 07:40 Temperature 98.8 F Pulse Rate 75 79 76 Respiratory Rate 24 24 24 Blood Pressure 102/53 L 94/52 L Pulse Oximetry 99 100 10/04/18 07:45 10/04/18 07:50 10/04/18 08:00 Temperature 99.0 F Pulse Rate 78 78 78 Respiratory Rate 24 24 Blood Pressure 86/48 L 92/55 L Pulse Oximetry 100 100 10/04/18 08:10 10/04/18 08:20 10/04/18 08:30 Temperature 99.1 F Pulse Rate 78 78 79 Respiratory Rate 24 24 24 Blood Pressure 96/52 L 92/51 L 92/51 L Pulse Oximetry 100 100 100 10/04/18 08:40 10/04/18 08:50 10/04/18 09:00 Temperature 99.3 F 99.3 F Pulse Rate 79 79 79 Respiratory Rate 24 24 24 Blood Pressure 92/51 L 92/53 L 90/51 L Pulse Oximetry 100 100 100 10/04/18 09:10 10/04/18 09:20 10/04/18 09:30 Temperature Pulse Rate 79 79 79 Respiratory Rate 24 24 24 Blood Pressure 92/51 L 91/52 L 93/52 L Pulse Oximetry 100 100 100 10/04/18 09:40 10/04/18 09:50 10/04/18 10:00 Temperature Pulse Rate 79 80 80 Respiratory Rate 24 24 24 Blood Pressure 87/52 L 89/52 L 90/52 L Pulse Oximetry 100 100 100 10/04/18 10:10 10/04/18 10:20 10/04/18 10:30 Temperature Pulse Rate 80 79 79 Respiratory Rate 24 24 24 Blood Pressure 90/51 L 86/50 L 84/49 L Pulse Oximetry 100 100 100 10/04/18 10:40 10/04/18 11:05 10/04/18 11:09 Temperature 98.9 F Pulse Rate 78 78 78 Respiratory Rate 24 24 Blood Pressure 80/47 L 88/53 L Pulse Oximetry 100 100 10/04/18 11:25 10/04/18 11:38 10/04/18 12:00 Temperature 98.6 F Pulse Rate 72 78 78 Respiratory Rate 24 24 Blood Pressure 102/54 L 94/52 L Pulse Oximetry 100 10/04/18 15:07 Temperature Pulse Rate 58 L Respiratory Rate 24 Blood Pressure Pulse Oximetry Intake & Output 10/03/18 10/04/18 10/04/18 18:59 06:59 18:59 Intake Total 3700 / 3700 5665.3 / 5665.3 70.2 / 70.2 Output Total 550 / 550 1175 / 1175 Balance 3150 / 3150 4490.3 / 4490.3 70.2 / 70.2 Weight 94 kg Intake: IV 1050 / 1050 5247.3 / 5247.3 70.2 / 70.2 Versed Inj 100 mg In 100 ml @ 1 114.5 / 114.5 MG/HR 1 mls/hr IV.CONT TITRATE PRN Rx#:[id number] Levophed Inj 16 MG In NS Inj 147 / 147 234 ML @ 2 MCG/MIN 1.87 mls/hr IV.CONT TITRATE PRN Rx#: [id number] SandoSTATIN Inj 500 MCG In NS 1000 / 1000 Inj 500 ML @ 50 MCG/HR 50.05 mls/hr IV.CONT .Q10H [facility] Rx#: [id number] Protonix Inj 80 MG In NS Inj 100 / 100 100 ML @ 10 mls/hr IV.CONT CONT [facility] Rx#:[id number] Sodium Bicarbonate 8.4% Inj 150 1000 / 1000 1586 / 1586 0 / 0 MEQ In Sterile Water for Inj 850 ML @ 150 mls/hr IV.CONT . Q6H40M [facility] Rx#:[id number] Pitressin Inj 40 UNIT In D5W 79.8 / 79.8 20.2 / 20.2 Inj 98 ML @ 0.04 UNITS/MIN 6 mls/hr IV.CONT CONT PRN Rx#: [id number] Vitamin K Inj 10 MG In NS Inj 51 / 51 50 ML @ 102 mls/hr IV.SIG ONCE ONE Rx#:[id number] Zosyn 3.375 GM Premix 3.375 gm 50 / 50 100 / 100 50 / 50 In 50 ml @ 100 mls/hr IV.SIG Q6H [facility] Rx#:[id number] Vancomycin Inj 1,500 MG In NS 515 / 515 Inj 500 ML @ 257.5 mls/hr IV. SIG ONCE ONE Rx#:[id number] fentaNYL 10 mcg/mL Premix Drip 358 / 358 2,500 mcg In 250 ml @ 50 MCG/HR 5 mls/hr IV.SIG TITRATE PRN Rx #:[id number] Intake (Blood Product) Amt 2650 / 2650 418 / 418 0 / 0 Plasma Thawed 5 Day Acda Unit 194 / 194 [id number] Plasma Thawed 5 Day Cp2d Unit 267 / 267 [id number] Plasma Thawed 5 Day Cp2d Unit 338 / 338 [id number] Pre-Pooled Cryo Thawed 10units 231 / 231 Unit [id number] Pre-Pooled Cryo Thawed 10units 224 / 224 Unit [id number] Pre-Pooled Cryo Thawed 10units 214 / 214 Unit [id number] Rbc As-3 Leukoreduced Unit 400 / 400 [id number] Rbc As-3 Leukoreduced Unit 400 / 400 [id number] Rbc As-3 Leukoreduced Unit 400 / 400 [id number] Rbc As-3 Leukoreduced Unit 400 / 400 [id number] Rbc As-3 Leukoreduced Unit 0 / 0 [id number] Output: Urine 0 / 0 Urine Amount (Catheter) 825 / 825 Indwelling Urethral Catheter 825 / 825 Gastric Drainage 550 / 550 350 / 350 Orogastric Tube 550 / 550 350 / 350 Other: Date of Last Bowel Movement 10/02/18 10/02/18 10/02/18 # Bowel Movements 0 0 Narrative: GENERAL: intubated on ventilator SKIN: Warm and dry. NECK: Supple, trachea midline. No JVD CARDIOVASCULAR: Regular rate and rhythm without murmurs, gallops, or rubs. RESPIRATORY: Breath sounds equal bilaterally. No accessory muscle use. Orally intubated GASTROINTESTINAL: Abdomen soft, non-tender, distended. +BS. OG tube MUSCULOSKELETAL: 2-3 + edema. BACK: Nontender without obvious deformity. No CVA tenderness. - Urinary Catheter Management Indwelling Temp Sensing Catheter Cath placed during this visit: yes, but has since been removed by the nurse Urethral indwelling: Yes Reason for continuing: Hourly intake/output Insertion date: 09/21/18 Insertion time: 20:00 Removal date: 09/25/18 Removal time: 15:45 Indwelling Urethral Catheter Cath placed during this visit: no <Yovany Pulido - Last Filed: 10/04/18 16:10> Vital signs: Vital Signs 10/04/18 09:10 10/04/18 09:20 10/04/18 09:30 Temperature Pulse Rate 79 79 79 Respiratory Rate 24 24 24 Blood Pressure 92/51 L 91/52 L 93/52 L Pulse Oximetry 100 100 100 10/04/18 09:40 10/04/18 09:50 10/04/18 10:00 Temperature Pulse Rate 79 80 80 Respiratory Rate 24 24 24 Blood Pressure 87/52 L 89/52 L 90/52 L Pulse Oximetry 100 100 100 10/04/18 10:10 10/04/18 10:20 10/04/18 10:30 Temperature Pulse Rate 80 79 79 Respiratory Rate 24 24 24 Blood Pressure 90/51 L 86/50 L 84/49 L Pulse Oximetry 100 100 100 10/04/18 10:40 10/04/18 11:05 10/04/18 11:09 Temperature 98.9 F Pulse Rate 78 78 78 Respiratory Rate 24 24 Blood Pressure 80/47 L 88/53 L Pulse Oximetry 100 100 10/04/18 11:25 10/04/18 11:38 10/04/18 12:00 Temperature 98.6 F Pulse Rate 72 78 78 Respiratory Rate 24 24 Blood Pressure 102/54 L 94/52 L Pulse Oximetry 100 10/04/18 12:05 10/04/18 14:05 10/04/18 14:40 Temperature Pulse Rate 78 76 Respiratory Rate Blood Pressure 84/53 L Pulse Oximetry 10/04/18 14:50 10/04/18 15:00 10/04/18 15:01 Temperature 97.9 F 97.7 F 97.7 F Pulse Rate 72 59 L 56 L Respiratory Rate 24 24 24 Blood Pressure 87/55 L 122/60 Pulse Oximetry 100 100 100 10/04/18 15:07 10/04/18 15:10 10/04/18 15:20 Temperature 97.7 F 97.7 F Pulse Rate 58 L 58 L 66 Respiratory Rate 24 24 24 Blood Pressure 128/61 122/59 L Pulse Oximetry 100 100 10/04/18 15:30 10/04/18 15:32 10/04/18 15:40 Temperature Pulse Rate 73 74 75 Respiratory Rate 24 24 24 Blood Pressure 115/57 L 117/57 L 104/58 L Pulse Oximetry 100 100 100 10/04/18 15:50 10/04/18 16:00 10/04/18 16:06 Temperature 97.5 F L Pulse Rate 74 73 76 Respiratory Rate 24 24 24 Blood Pressure 84/46 L 81/49 L 86/53 L Pulse Oximetry 100 100 100 10/04/18 16:10 10/04/18 16:11 10/04/18 16:16 Temperature Pulse Rate 76 75 Respiratory Rate 24 24 24 Blood Pressure 75/46 L 79/48 L Pulse Oximetry 100 100 100 10/04/18 16:20 10/04/18 16:30 10/04/18 16:40 Temperature Pulse Rate 74 73 73 Respiratory Rate 24 24 24 Blood Pressure 67/41 L 70/45 L 75/48 L Pulse Oximetry 100 100 100 10/04/18 16:50 10/04/18 17:00 10/04/18 17:10 Temperature Pulse Rate 72 70 68 Respiratory Rate 24 24 24 Blood Pressure 76/48 L 88/53 L 92/50 L Pulse Oximetry 100 100 100 10/04/18 17:20 10/04/18 17:30 10/04/18 17:40 Temperature Pulse Rate 69 68 68 Respiratory Rate 24 24 24 Blood Pressure 93/50 L 98/56 L 95/50 L Pulse Oximetry 100 100 100 10/04/18 17:50 10/04/18 18:00 10/04/18 18:10 Temperature 97.7 F 97.9 F Pulse Rate 69 69 71 Respiratory Rate 24 24 24 Blood Pressure 92/55 L 92/55 L 90/54 L Pulse Oximetry 100 100 100 10/04/18 18:50 10/04/18 19:00 10/04/18 19:10 Temperature 98.2 F 98.4 F 98.4 F Pulse Rate 71 72 73 Respiratory Rate 24 24 24 Blood Pressure 96/55 L 93/54 L 91/50 L Pulse Oximetry 100 100 100 10/04/18 19:20 10/04/18 19:30 10/04/18 19:40 Temperature 98.6 F 98.8 F 98.8 F Pulse Rate 73 74 74 Respiratory Rate 24 24 24 Blood Pressure 92/51 L 91/53 L 88/52 L Pulse Oximetry 100 100 100 10/04/18 19:50 10/04/18 19:56 10/04/18 19:58 Temperature 99.0 F Pulse Rate 74 74 Respiratory Rate 24 24 24 Blood Pressure 87/52 L Pulse Oximetry 100 100 10/04/18 20:00 10/04/18 20:10 10/04/18 20:20 Temperature 99.1 F 99.1 F 99.1 F Pulse Rate 75 75 77 Respiratory Rate 24 24 24 Blood Pressure 86/52 L 96/54 L 86/52 L Pulse Oximetry 100 100 100 10/04/18 20:30 10/04/18 20:40 10/04/18 20:50 Temperature 99.3 F 99.3 F 99.3 F Pulse Rate 77 77 78 Respiratory Rate 24 24 24 Blood Pressure 92/54 L 89/52 L 91/53 L Pulse Oximetry 100 100 100 10/04/18 21:00 10/04/18 21:10 10/04/18 21:20 Temperature 99.5 F 99.5 F 99.5 F Pulse Rate 79 79 79 Respiratory Rate 24 24 24 Blood Pressure 93/54 L 90/53 L 92/53 L Pulse Oximetry 100 100 100 10/04/18 21:30 10/04/18 21:40 10/04/18 21:50 Temperature 99.7 F H 99.7 F H 99.7 F H Pulse Rate 79 80 81 Respiratory Rate 24 24 24 Blood Pressure 89/53 L 91/53 L 90/54 L Pulse Oximetry 100 100 100 10/04/18 22:00 10/04/18 22:10 10/04/18 22:20 Temperature 99.9 F H 99.9 F H 99.9 F H Pulse Rate 79 80 80 Respiratory Rate 24 24 24 Blood Pressure 96/54 L 93/54 L 92/54 L Pulse Oximetry 100 100 100 10/04/18 22:30 10/04/18 22:40 10/04/18 22:50 Temperature 99.9 F H 99.9 F H 99.9 F H Pulse Rate 80 80 80 Respiratory Rate 24 24 24 Blood Pressure 93/54 L 91/54 L 93/54 L Pulse Oximetry 100 100 100 10/04/18 23:00 10/04/18 23:10 10/04/18 23:20 Temperature 99.9 F H 99.9 F H 99.9 F H Pulse Rate 80 80 80 Respiratory Rate 24 24 24 Blood Pressure 92/54 L 94/53 L 94/55 L Pulse Oximetry 100 100 100 10/04/18 23:30 10/04/18 23:40 10/04/18 23:50 Temperature 99.9 F H 99.9 F H 99.9 F H Pulse Rate 79 80 79 Respiratory Rate 24 24 24 Blood Pressure 92/54 L 95/54 L 95/54 L Pulse Oximetry 100 100 100 10/05/18 00:00 10/05/18 00:10 10/05/18 00:20 Temperature 99.9 F H 99.9 F H 99.9 F H Pulse Rate 80 80 80 Respiratory Rate 24 24 24 Blood Pressure 96/54 L 95/53 L 97/54 L Pulse Oximetry 100 100 100 10/05/18 00:30 10/05/18 00:40 10/05/18 00:50 Temperature 99.9 F H 99.9 F H 99.7 F H Pulse Rate 80 80 80 Respiratory Rate 24 24 24 Blood Pressure 96/55 L 96/54 L 96/54 L Pulse Oximetry 100 100 100 10/05/18 01:00 10/05/18 01:10 10/05/18 01:20 Temperature 99.7 F H 99.7 F H 99.7 F H Pulse Rate 80 80 80 Respiratory Rate 24 24 24 Blood Pressure 99/55 L 98/54 L 97/55 L Pulse Oximetry 100 100 100 10/05/18 01:30 10/05/18 01:40 10/05/18 01:50 Temperature 99.7 F H 99.7 F H 99.5 F Pulse Rate 79 79 78 Respiratory Rate 24 24 24 Blood Pressure 99/56 L 95/53 L 101/55 L Pulse Oximetry 100 100 100 10/05/18 02:00 10/05/18 03:35 10/05/18 03:36 Temperature Pulse Rate 78 76 Respiratory Rate 24 24 Blood Pressure Pulse Oximetry 100 10/05/18 03:40 10/05/18 03:50 10/05/18 04:00 Temperature 98.8 F 98.8 F 98.6 F Pulse Rate 79 77 76 Respiratory Rate 24 24 24 Blood Pressure 81/45 L 94/53 L 96/55 L Pulse Oximetry 100 100 100 10/05/18 04:10 10/05/18 04:20 10/05/18 04:30 Temperature 98.6 F 98.4 F 98.4 F Pulse Rate 77 75 75 Respiratory Rate 24 24 24 Blood Pressure 99/56 L 99/55 L 100/57 L Pulse Oximetry 100 100 100 10/05/18 04:40 10/05/18 04:50 10/05/18 05:00 Temperature 98.4 F 98.2 F 98.2 F Pulse Rate 75 75 74 Respiratory Rate 24 24 24 Blood Pressure 100/56 L 100/56 L 101/57 L Pulse Oximetry 100 100 100 10/05/18 05:10 10/05/18 05:20 10/05/18 05:30 Temperature 98.1 F 98.1 F 98.1 F Pulse Rate 74 74 74 Respiratory Rate 24 24 24 Blood Pressure 98/55 L 99/56 L 98/56 L Pulse Oximetry 100 100 100 10/05/18 05:40 10/05/18 05:50 10/05/18 06:00 Temperature 98.1 F 98.2 F 98.2 F Pulse Rate 75 75 74 Respiratory Rate 24 24 24 Blood Pressure 97/56 L 95/54 L 95/50 L Pulse Oximetry 100 100 100 10/05/18 06:10 10/05/18 06:20 10/05/18 06:30 Temperature 98.2 F 98.4 F 98.4 F Pulse Rate 75 75 78 Respiratory Rate 24 24 24 Blood Pressure 94/50 L 92/50 L 95/52 L Pulse Oximetry 100 100 100 10/05/18 06:40 10/05/18 06:50 10/05/18 07:00 Temperature 98.4 F 98.4 F Pulse Rate 77 77 79 Respiratory Rate 24 24 19 Blood Pressure 95/54 L 96/54 L 90/52 L Pulse Oximetry 100 100 94 L 10/05/18 07:10 10/05/18 07:20 10/05/18 07:30 Temperature Pulse Rate 79 87 85 Respiratory Rate 24 24 24 Blood Pressure 94/55 L 87/55 L 54/38 L Pulse Oximetry 100 100 100 10/05/18 07:35 10/05/18 07:42 10/05/18 07:43 Temperature Pulse Rate 86 93 H Respiratory Rate 24 25 H 27 H Blood Pressure 54/38 L Pulse Oximetry 100 100 10/05/18 08:20 10/05/18 08:47 Temperature 98.1 F Pulse Rate 108 H 109 H Respiratory Rate 24 24 Blood Pressure 52/37 L 58/37 L Pulse Oximetry Intake & Output 10/04/18 10/05/18 10/05/18 18:59 06:59 18:59 Intake Total 1273.7 / 1273.7 1579.8 / 1579.8 658 / 658 Output Total 600 / 600 850 / 850 Balance 673.7 / 673.7 729.8 / 729.8 658 / 658 Weight 95 kg Intake: IV 873.7 / 873.7 1459.8 / 1459.8 98 / 98 Levophed Inj 16 MG In NS Inj 55 / 55 48 / 48 234 ML @ 2 MCG/MIN 1.87 mls/hr IV.CONT TITRATE PRN Rx#: [id number] SandoSTATIN Inj 500 MCG In NS 567.2 / 567.2 534 / 534 Inj 500 ML @ 50 MCG/HR 50.05 mls/hr IV.CONT .Q10H [facility] Rx#: [id number] Protonix Inj 80 MG In NS Inj 7.3 / 7.3 192.7 / 192.7 100 ML @ 10 mls/hr IV.CONT Q10H [facility] Rx#:[id number] Sodium Bicarbonate 8.4% Inj 150 0 / 0 MEQ In Sterile Water for Inj 850 ML @ 150 mls/hr IV.CONT . Q6H40M [facility] Rx#:[id number] Pitressin Inj 40 UNIT In D5W 88.2 / 88.2 32 / 32 Inj 98 ML @ 0.04 UNITS/MIN 6 mls/hr IV.CONT CONT PRN Rx#: [id number] Zosyn 2.25 GM Premix 2.25 gm In 100 / 100 50 / 50 50 ml @ 100 mls/hr IV.SIG Q6H [facility] Rx#:[id number] Zosyn 3.375 GM Premix 3.375 gm 50 / 50 In 50 ml @ 100 mls/hr IV.SIG Q6H [facility] Rx#:[id number] fentaNYL 10 mcg/mL Premix Drip 106 / 106 36.1 / 36.1 2,500 mcg In 250 ml @ 50 MCG/HR 5 mls/hr IV.SIG TITRATE PRN Rx #:[id number] Oral 0 / 0 Tube Irrigant 120 / 120 Intake (Blood Product) Amt 400 / 400 560 / 560 Plasma Thawed 5 Day Acda Unit / [id number] Plasma Thawed 5 Day Cp2d Unit 358 / 358 [id number] Rbc As-3 Leukoreduced Unit 0 / 0 [id number] Rbc As-3 Leukoreduced Unit 0 / 0 [id number] Rbc As-3 Leukoreduced Unit 400 / 400 [id number] Output: Urine Amount (Catheter) 300 / 300 350 / 350 Indwelling Urethral Catheter 300 / 300 350 / 350 Gastric Drainage 300 / 300 500 / 500 Orogastric Tube 300 / 300 500 / 500 Other: Date of Last Bowel Movement 10/02/18 10/02/18 # Bowel Movements 1 - Urinary Catheter Management Indwelling Temp Sensing Catheter Cath placed during this visit: no Indwelling Urethral Catheter Cath placed during this visit: no <Sukhi Vera - Last Filed: 10/05/18 09:09> Results - Labs CBC & Chem 7: 10/04/18 15:05 10/04/18 04:17 Laboratory Results - last 24 hr 10/03/18 10/03/18 10/03/18 10:26 13:45 16:51 WBC RBC Hgb Hct MCV MCH MCHC RDW Plt Count MPV Prelim Diff (Auto) Neut % (Auto) Lymph % (Auto) [place] % (Auto) Eos % (Auto) Baso % (Auto) Neut # (Auto) Lymph # (Auto) [place] # (Auto) Eos # (Auto) Baso # (Auto) WBC Differential Seg Neuts % (Manual) Band Neuts % (Manual) Monocytes % (Manual) Eosinophils % (Manual) Abs Neuts (Manual) Differential Comment Toxic Granulation Platelet Estimate Platelet Morphology PT INR APTT Fibrinogen Puncture Site Right radial Patient Temperature 98.6 O2 Saturation 96 ABG pH 7.37 L ABG pCO2 33 L ABG pO2 102 ABG HCO3 19 L ABG O2 Content 11.3 L ABG Base Excess -5.7 L ABG Methemoglobin 1.5 [place] Test + Hemoglobin 8.3 L Carboxyhemoglobin 1.3 O2 Delivery Device Ventilator Vent Setting See comments Inspired O2 50 Critical Value No Sodium Potassium Chloride Carbon Dioxide Anion Gap BUN Creatinine Estimated GFR POC Glucose Random Glucose Lactic Acid Calcium Phosphorus Magnesium Total Bilirubin AST ALT Alkaline Phosphatase Ammonia Total Protein Albumin TSH Random Vancomycin MTS Gel Crossmatch See Detail Blood Bank Comment 10/03/18 10/03/18 10/03/18 16:58 16:58 16:58 WBC RBC Hgb 8.1 L D Hct 23.3 L MCV MCH MCHC RDW Plt Count MPV Prelim Diff (Auto) Neut % (Auto) Lymph % (Auto) [place] % (Auto) Eos % (Auto) Baso % (Auto) Neut # (Auto) Lymph # (Auto) [place] # (Auto) Eos # (Auto) Baso # (Auto) WBC Differential Seg Neuts % (Manual) Band Neuts % (Manual) Monocytes % (Manual) Eosinophils % (Manual) Abs Neuts (Manual) Differential Comment Toxic Granulation Platelet Estimate Platelet Morphology PT INR APTT Fibrinogen Puncture Site Patient Temperature O2 Saturation ABG pH ABG pCO2 ABG pO2 ABG HCO3 ABG O2 Content ABG Base Excess ABG Methemoglobin [place] Test Hemoglobin Carboxyhemoglobin O2 Delivery Device Vent Setting Inspired O2 Critical Value Sodium Potassium 4.7 Chloride Carbon Dioxide Anion Gap BUN Creatinine Estimated GFR POC Glucose Random Glucose Lactic Acid 11.8 H* Calcium Phosphorus Magnesium Total Bilirubin AST ALT Alkaline Phosphatase Ammonia Total Protein Albumin TSH Random Vancomycin Contrail Systems Gel Crossmatch Blood Bank Comment 10/03/18 10/03/18 10/03/18 16:58 19:56 22:00 WBC RBC Hgb 7.6 L Hct 22.0 L MCV MCH MCHC RDW Plt Count MPV Prelim Diff (Auto) Neut % (Auto) Lymph % (Auto) [place] % (Auto) Eos % (Auto) Baso % (Auto) Neut # (Auto) Lymph # (Auto) [place] # (Auto) Eos # (Auto) Baso # (Auto) WBC Differential Seg Neuts % (Manual) Band Neuts % (Manual) Monocytes % (Manual) Eosinophils % (Manual) Abs Neuts (Manual) Differential Comment Toxic Granulation Platelet Estimate Platelet Morphology PT 18.0 H D INR 1.8 APTT 60.4 H Fibrinogen 123 L Puncture Site Patient Temperature O2 Saturation ABG pH ABG pCO2 ABG pO2 ABG HCO3 ABG O2 Content ABG Base Excess ABG Methemoglobin Thierno Test Hemoglobin Carboxyhemoglobin O2 Delivery Device Vent Setting Inspired O2 Critical Value Sodium Potassium Chloride Carbon Dioxide Anion Gap BUN Creatinine Estimated GFR POC Glucose 163 H Random Glucose Lactic Acid Calcium Phosphorus Magnesium Total Bilirubin AST ALT Alkaline Phosphatase Ammonia Total Protein Albumin TSH Random Vancomycin MTS Gel Crossmatch Blood Bank Comment 10/03/18 10/03/18 10/04/18 22:00 23:50 00:14 WBC RBC Hgb Hct MCV MCH MCHC RDW Plt Count MPV Prelim Diff (Auto) Neut % (Auto) Lymph % (Auto) [place] % (Auto) Eos % (Auto) Baso % (Auto) Neut # (Auto) Lymph # (Auto) [place] # (Auto) Eos # (Auto) Baso # (Auto) WBC Differential Seg Neuts % (Manual) Band Neuts % (Manual) Monocytes % (Manual) Eosinophils % (Manual) Abs Neuts (Manual) Differential Comment Toxic Granulation Platelet Estimate Platelet Morphology PT INR APTT Fibrinogen Puncture Site Patient Temperature O2 Saturation ABG pH ABG pCO2 ABG pO2 ABG HCO3 ABG O2 Content ABG Base Excess ABG Methemoglobin Thierno Test Hemoglobin Carboxyhemoglobin O2 Delivery Device Vent Setting Inspired O2 Critical Value Sodium Potassium Chloride Carbon Dioxide Anion Gap BUN Creatinine Estimated GFR POC Glucose 141 H Random Glucose Lactic Acid 9.6 H* Calcium Phosphorus Magnesium Total Bilirubin AST ALT Alkaline Phosphatase Ammonia 42 H Total Protein Albumin TSH Random Vancomycin MTS Gel Crossmatch Blood Bank Comment 10/04/18 10/04/18 10/04/18 00:17 00:17 00:17 WBC 15.8 H RBC 2.59 L Hgb 7.5 L Hct 21.9 L MCV 84.4 D MCH 29.0 MCHC 34.4 RDW 16.4 D Plt Count 66 L D MPV 10.9 Prelim Diff (Auto) Slide review pending Neut % (Auto) 88.4 H Lymph % (Auto) 5.2 L [place] % (Auto) 5.5 Eos % (Auto) 0.7 Baso % (Auto) 0.2 Neut # (Auto) 14.0 H Lymph # (Auto) 0.8 L [place] # (Auto) 0.9 Eos # (Auto) 0.1 Baso # (Auto) 0.0 WBC Differential Manual diff final Seg Neuts % (Manual) 66 Band Neuts % (Manual) 28 H Monocytes % (Manual) 5 Eosinophils % (Manual) 1 Abs Neuts (Manual) 14.9 H Differential Comment . Toxic Granulation 1+ H Platelet Estimate Low L Platelet Morphology Enlarged H PT 19.0 H INR 1.9 APTT 43.4 H D Fibrinogen 119 L Puncture Site Patient Temperature O2 Saturation ABG pH ABG pCO2 ABG pO2 ABG HCO3 ABG O2 Content ABG Base Excess ABG Methemoglobin Thierno Test Hemoglobin Carboxyhemoglobin O2 Delivery Device Vent Setting Inspired O2 Critical Value Sodium 144 Potassium 4.8 Chloride 105 Carbon Dioxide 24.4 D Anion Gap 15 BUN 57 H Creatinine 2.54 H Estimated GFR 25 L POC Glucose Random Glucose 133 H Lactic Acid Calcium 7.6 L Phosphorus Magnesium Total Bilirubin AST ALT Alkaline Phosphatase Ammonia Total Protein Albumin TSH Random Vancomycin Contrail Systems Gel Crossmatch Blood Bank Comment 10/04/18 10/04/18 10/04/18 01:41 04:17 04:17 WBC RBC Hgb Hct MCV MCH MCHC RDW Plt Count MPV Prelim Diff (Auto) Neut % (Auto) Lymph % (Auto) [place] % (Auto) Eos % (Auto) Baso % (Auto) Neut # (Auto) Lymph # (Auto) [place] # (Auto) Eos # (Auto) Baso # (Auto) WBC Differential Seg Neuts % (Manual) Band Neuts % (Manual) Monocytes % (Manual) Eosinophils % (Manual) Abs Neuts (Manual) Differential Comment Toxic Granulation Platelet Estimate Platelet Morphology PT INR APTT Fibrinogen Puncture Site Patient Temperature O2 Saturation ABG pH ABG pCO2 ABG pO2 ABG HCO3 ABG O2 Content ABG Base Excess ABG Methemoglobin Thierno Test Hemoglobin Carboxyhemoglobin O2 Delivery Device Vent Setting Inspired O2 Critical Value Sodium 143 Potassium 4.7 Chloride 104 Carbon Dioxide 26.1 Anion Gap 13 BUN 55 H Creatinine 2.61 H Estimated GFR 24 L POC Glucose Random Glucose 111 H Lactic Acid 7.9 H* Calcium 7.7 L Phosphorus 4.7 Magnesium 1.8 Total Bilirubin 8.7 H AST 3083 H ALT 1044 H Alkaline Phosphatase 93 Ammonia Total Protein 5.2 L Albumin 2.9 L TSH 0.665 Random Vancomycin 15.6 MTS Gel Crossmatch Blood Bank Comment 10/04/18 10/04/18 10/04/18 05:51 07:25 07:27 WBC 13.2 H RBC 2.40 L Hgb 7.2 L Hct 20.9 L* MCV 86.7 MCH 30.1 MCHC 34.7 RDW 16.7 Plt Count 60 L MPV 10.4 Prelim Diff (Auto) Neut % (Auto) Lymph % (Auto) [place] % (Auto) Eos % (Auto) Baso % (Auto) Neut # (Auto) Lymph # (Auto) [place] # (Auto) Eos # (Auto) Baso # (Auto) WBC Differential Seg Neuts % (Manual) Band Neuts % (Manual) Monocytes % (Manual) Eosinophils % (Manual) Abs Neuts (Manual) Differential Comment Toxic Granulation Platelet Estimate Platelet Morphology PT INR APTT Fibrinogen Puncture Site Right radial Patient Temperature 98.6 O2 Saturation 95 ABG pH 7.50 H ABG pCO2 31 L ABG pO2 91 ABG HCO3 23 ABG O2 Content 10.3 L ABG Base Excess 0.5 ABG Methemoglobin 1.6 Thierno Test Present Hemoglobin 7.6 L* Carboxyhemoglobin 1.5 O2 Delivery Device Ventilator Vent Setting Prvc/ac 24 vt 550 Inspired O2 40 Critical Value Yes Sodium Potassium Chloride Carbon Dioxide Anion Gap BUN Creatinine Estimated GFR POC Glucose 111 H Random Glucose Lactic Acid Calcium Phosphorus Magnesium Total Bilirubin AST ALT Alkaline Phosphatase Ammonia Total Protein Albumin TSH Random Vancomycin MTS Gel Crossmatch Blood Bank Comment 10/04/18 10/04/18 10/04/18 10:15 12:45 15:05 WBC RBC Hgb 8.0 L Hct 23.3 L MCV MCH MCHC RDW Plt Count MPV Prelim Diff (Auto) Neut % (Auto) Lymph % (Auto) [place] % (Auto) Eos % (Auto) Baso % (Auto) Neut # (Auto) Lymph # (Auto) [place] # (Auto) Eos # (Auto) Baso # (Auto) WBC Differential Seg Neuts % (Manual) Band Neuts % (Manual) Monocytes % (Manual) Eosinophils % (Manual) Abs Neuts (Manual) Differential Comment Toxic Granulation Platelet Estimate Platelet Morphology PT INR APTT Fibrinogen Puncture Site Patient Temperature O2 Saturation ABG pH ABG pCO2 ABG pO2 ABG HCO3 ABG O2 Content ABG Base Excess ABG Methemoglobin Thierno Test Hemoglobin Carboxyhemoglobin O2 Delivery Device Vent Setting Inspired O2 Critical Value Sodium Potassium Chloride Carbon Dioxide Anion Gap BUN Creatinine Estimated GFR POC Glucose 111 H Random Glucose Lactic Acid Calcium Phosphorus Magnesium Total Bilirubin AST ALT Alkaline Phosphatase Ammonia Total Protein Albumin TSH Random Vancomycin MTS Gel Crossmatch See Detail Blood Bank Comment Microbiology 10/03/18 23:30 Sputum - Endotracheal Gram Stain - Final 10/03/18 10:17 Blood - Peripheral Aerobic Blood Culture - Preliminary No growth in 1 day 10/03/18 10:17 Blood - Peripheral Anaerobic Blood Culture - Preliminary No growth in 1 day 10/03/18 10:00 Blood - Peripheral Aerobic Blood Culture - Preliminary No growth in 1 day 10/03/18 10:00 Blood - Peripheral Anaerobic Blood Culture - Preliminary No growth in 1 day - Imaging Impressions Chest X-Ray 10/04/18 06:00 CONCLUSION: Support apparatus in good position. Stable elevated right hemidiaphragm and mild basilar airspace disease. <Yovany Pulido - Last Filed: 10/04/18 16:10> - Labs CBC & Chem 7: 10/05/18 07:49 10/05/18 03:40 Laboratory Results - last 24 hr 10/04/18 10/04/18 10/04/18 07:25 10:15 12:45 WBC 13.2 H RBC 2.40 L Hgb 7.2 L Hct 20.9 L* MCV 86.7 MCH 30.1 MCHC 34.7 RDW 16.7 Plt Count 60 L MPV 10.4 Prelim Diff (Auto) Neut % (Auto) Lymph % (Auto) [place] % (Auto) Eos % (Auto) Baso % (Auto) Neut # (Auto) Lymph # (Auto) [place] # (Auto) Eos # (Auto) Baso # (Auto) WBC Differential Diff Scan Differential Comment Platelet Estimate Platelet Morphology Polychromasia Basophilic Stippling Ovalocytes Acanthocytes (Spur) Keratocytes PT INR Fibrinogen Sodium Potassium Chloride Carbon Dioxide Anion Gap BUN Creatinine Estimated GFR POC Glucose 111 H Random Glucose Lactic Acid Calcium Calcium Adj for Albumin Total Bilirubin AST ALT Alkaline Phosphatase Total Protein Albumin MTS Gel Crossmatch See Detail Blood Bank Comment Bld Prod Order Comment 10/04/18 10/04/18 10/04/18 15:05 15:05 18:03 WBC RBC Hgb 8.0 L Hct 23.3 L MCV MCH MCHC RDW Plt Count MPV Prelim Diff (Auto) Neut % (Auto) Lymph % (Auto) [place] % (Auto) Eos % (Auto) Baso % (Auto) Neut # (Auto) Lymph # (Auto) [place] # (Auto) Eos # (Auto) Baso # (Auto) WBC Differential Diff Scan Differential Comment Platelet Estimate Platelet Morphology Polychromasia Basophilic Stippling Ovalocytes Acanthocytes (Spur) Keratocytes PT INR Fibrinogen Sodium Potassium Chloride Carbon Dioxide Anion Gap BUN Creatinine Estimated GFR POC Glucose 151 H Random Glucose Lactic Acid 6.4 H* Calcium Calcium Adj for Albumin Total Bilirubin AST ALT Alkaline Phosphatase Total Protein Albumin MTS Gel Crossmatch Blood Bank Comment Bld Prod Order Comment 10/04/18 10/04/18 10/05/18 21:45 21:45 00:10 WBC RBC Hgb 8.2 L Hct 23.4 L MCV MCH MCHC RDW Plt Count MPV Prelim Diff (Auto) Neut % (Auto) Lymph % (Auto) [place] % (Auto) Eos % (Auto) Baso % (Auto) Neut # (Auto) Lymph # (Auto) [place] # (Auto) Eos # (Auto) Baso # (Auto) WBC Differential Diff Scan Differential Comment Platelet Estimate Platelet Morphology Polychromasia Basophilic Stippling Ovalocytes Acanthocytes (Spur) Keratocytes PT INR Fibrinogen Sodium Potassium Chloride Carbon Dioxide Anion Gap BUN Creatinine Estimated GFR POC Glucose 145 H Random Glucose Lactic Acid 5.9 H* Calcium Calcium Adj for Albumin Total Bilirubin AST ALT Alkaline Phosphatase Total Protein Albumin MTS Gel Crossmatch Blood Bank Comment Bld Prod Order Comment 10/05/18 10/05/18 10/05/18 03:40 03:40 03:40 WBC 7.4 RBC 2.81 L Hgb 8.4 L Hct 24.2 L MCV 86.3 MCH 29.8 MCHC 34.5 RDW 16.6 Plt Count 40 L D MPV 10.6 Prelim Diff (Auto) Slide review pending Neut % (Auto) 88.4 H Lymph % (Auto) 4.7 L [place] % (Auto) 6.8 Eos % (Auto) 0.1 Baso % (Auto) 0.0 Neut # (Auto) 6.5 Lymph # (Auto) 0.3 L [place] # (Auto) 0.5 Eos # (Auto) 0.0 Baso # (Auto) 0.0 WBC Differential . Diff Scan Auto diff confirmed Differential Comment . Platelet Estimate Low L Platelet Morphology Normal Polychromasia 3.4 H Basophilic Stippling Faint H Ovalocytes 1+ H Acanthocytes (Spur) Occ H Keratocytes Occ H PT 25.8 H INR 2.6 Fibrinogen Sodium Potassium Chloride Carbon Dioxide Anion Gap BUN Creatinine Estimated GFR POC Glucose Random Glucose Lactic Acid 5.6 H* Calcium Calcium Adj for Albumin Total Bilirubin AST ALT Alkaline Phosphatase Total Protein Albumin MTS Gel Crossmatch Blood Bank Comment Bld Prod Order Comment 10/05/18 10/05/18 10/05/18 03:40 07:39 07:49 WBC RBC Hgb 7.3 L Hct 21.3 L MCV MCH MCHC RDW Plt Count MPV Prelim Diff (Auto) Neut % (Auto) Lymph % (Auto) [place] % (Auto) Eos % (Auto) Baso % (Auto) Neut # (Auto) Lymph # (Auto) [place] # (Auto) Eos # (Auto) Baso # (Auto) WBC Differential Diff Scan Differential Comment Platelet Estimate Platelet Morphology Polychromasia Basophilic Stippling Ovalocytes Acanthocytes (Spur) Keratocytes PT INR Fibrinogen Sodium 145 Potassium 5.1 Chloride 106 Carbon Dioxide 26.9 Anion Gap 12 BUN 72 H Creatinine 3.18 H Estimated GFR 19 L POC Glucose Random Glucose 136 H Lactic Acid Calcium 7.2 L* Calcium Adj for Albumin 8.4 L Total Bilirubin 8.0 H AST 2177 H ALT 1023 H Alkaline Phosphatase 97 Total Protein 5.0 L Albumin 2.5 L MTS Gel Crossmatch Blood Bank Comment Bld Prod Order Comment 10/05/18 10/05/18 10/05/18 08:00 08:00 08:09 WBC RBC Hgb Hct MCV MCH MCHC RDW Plt Count MPV Prelim Diff (Auto) Neut % (Auto) Lymph % (Auto) [place] % (Auto) Eos % (Auto) Baso % (Auto) Neut # (Auto) Lymph # (Auto) [place] # (Auto) Eos # (Auto) Baso # (Auto) WBC Differential Diff Scan Differential Comment Platelet Estimate Platelet Morphology Polychromasia Basophilic Stippling Ovalocytes Acanthocytes (Spur) Keratocytes PT 31.9 H INR 3.2 Fibrinogen Less than 50 L* Sodium Potassium Chloride Carbon Dioxide Anion Gap BUN Creatinine Estimated GFR POC Glucose Random Glucose Lactic Acid Calcium Calcium Adj for Albumin Total Bilirubin AST ALT Alkaline Phosphatase Total Protein Albumin MTS Gel Crossmatch See Detail Blood Bank Comment Bld Prod Order Comment 10/05/18 08:21 WBC RBC Hgb Hct MCV MCH MCHC RDW Plt Count MPV Prelim Diff (Auto) Neut % (Auto) Lymph % (Auto) [place] % (Auto) Eos % (Auto) Baso % (Auto) Neut # (Auto) Lymph # (Auto) [place] # (Auto) Eos # (Auto) Baso # (Auto) WBC Differential Diff Scan Differential Comment Platelet Estimate Platelet Morphology Polychromasia Basophilic Stippling Ovalocytes Acanthocytes (Spur) Keratocytes PT INR Fibrinogen Sodium Potassium Chloride Carbon Dioxide Anion Gap BUN Creatinine Estimated GFR POC Glucose Random Glucose Lactic Acid Calcium Calcium Adj for Albumin Total Bilirubin AST ALT Alkaline Phosphatase Total Protein Albumin MTS Gel Crossmatch Blood Bank Comment Bld Prod Order Comment Microbiology 10/03/18 23:30 Sputum - Endotracheal Gram Stain - Final 10/03/18 10:17 Blood - Peripheral Aerobic Blood Culture - Preliminary No growth in 1 day 03/01/19 10:17 Blood - Peripheral Anaerobic Blood Culture - Preliminary No growth in 1 day 10/03/18 10:00 Blood - Peripheral Aerobic Blood Culture - Preliminary No growth in 1 day 10/03/18 10:00 Blood - Peripheral Anaerobic Blood Culture - Preliminary No growth in 1 day <Sukhi Vera - Last Filed: 10/05/18 09:09> Assessment and Plan (1) Hematemesis Status: Deleted Code(s): K92.0 - Hematemesis (2) Cirrhosis Status: Deleted Code(s): K74.60 - Unspecified cirrhosis of liver (3) Hx of hepatitis C Status: Deleted Code(s): Z86.19 - Personal history of other infectious and parasitic diseases (4) Thrombocytopenia Status: Deleted Code(s): D69.6 - Thrombocytopenia, unspecified (5) Tinea corporis Status: Acute Code(s): B35.4 - Tinea corporis (6) Hepatocellular carcinoma Status: Acute Code(s): C22.0 - Liver cell carcinoma - Plan 09/22/2018 EGD due to melena Hematemesis and history of cirrhosis 09/21/2018 EGD with band ligation of varices : 1. Large blood clot/blood in the fundus. Antrum normal 2. Blood in duodenum 3. Retroflexed views revealed large blood clot -Total bili 1.1 AST 40 ALT 34 alk phos 68 ammonia 43 hemoglobin 8.2 -No noted bleeding per nursing 09/23/2018 Post EGD 09/21/2018 showing large blood clots in the fundus antrum was normal there was blood in the duodenal retroflexed views revealed large blood clot recommendations for FFP platelets IV octreotide and Protonix. 09/24/2018 Liver cirrhosis with hematemesis -patient had a EGD showing large clots in the fundus of the antrum on 09/21/2018 Patient is currently intubated with Protonix IV push twice daily, octreotide discontinued this morning Hepatitis C Tinea corporis under chest Chronic kidney insufficiency Hyper ammonia 109 doubled from yesterday's level Total CK is elevated at 1370 Hemoglobin 7.6 hematocrit 22.1 platelets 48 BUN 64 creatinine 1.94 09/25/2018 Liver cirrhosis-post EGD on 09/21/2018 revealing large clots in the fundus of the antrum. Patient currently receiving IV Protonix twice daily Hemoglobin 7.7 hematocrit 22.2 stable, to begin Xifaxan, lactulose and nadolol Hepatitis C CKI Hyper ammonia-84--NG tube placement for administration of lactulose Xifaxan and nadolol 09/26/2018 Liver cirrhosis with ascites status post EGD on 09/21/2018 revealing large clots in the fundus of the antrum History of hepatitis C hepatocellular carcinoma status post TACE procedure Hyper ammonia Hemoglobin 9.4 hematocrit 27.3 platelet 56 INR 1.5 Ammonia today is 91 total bilirubin 1.8 09/29/2018 Liver cirrhosis with ascites Hepatitis C Hepatocellular carcinoma Hyper ammonia WBC 7.1 hemoglobin 8.5 hematocrit 25.1 platelet count 51 stable Patient awake and alert extubated on nasal cannula No reported bleeding Tolerating diet well post swallow evaluation 09/28/2018 KUB: Nasogastric tube is across the GE junction with persistent gaseous distention of stomach. Some small bowel gas is evident Moderate elevation the right hemidiaphragm. 09/30/2018 Liver cirrhosis with ascites Hepatitis C with hepatocellular carcinoma WBC 5.5 hemoglobin 7.7 hematocrit 22.5 No reported obvious bleeding-transfuse if needed to keep hemoglobin between 7 and 8 10/03/2018 Liver cirrhosis with ascites Hepatitis C with history of hepatocellular carcinoma GI has been notified that patient had hypotensive with tachycardic event this a.m. 08 [address] to low intermittent wall suction as patient was reintubated this a.m. Dark maroon colored gastric output in tubing Hemoglobin 5.6 hematocrit 17.6 platelet count 99 Coagulopathy INR 3.4 10/03/2018 Abdominal KUB; Persistent marked gastric distention suggestive of gastric outlet obstruction. Clinical correlation is recommended. Nasogastric tube has its tip in the proximal stomach. Degenerative changes throughout the thoracolumbar spine. 10/04/18 Liver cirrhosis with ascites Hepatitis C with history of hepatocellular carcinoma hgb today dropped to 7.2, received one unit of blood some bleeding noted in OGT Plan N.p.o. Orogastric tube in place as per butt presser Reversal of coagulopathy as per butt presser Monitor for active bleeding Transfuse to keep hemoglobin between 7 and 8--history of portal hypertensive gastropathy with variceal bleeding Palliative care following in light of patient's history of hepatocellular carcinoma and end-stage liver disease Poor prognosis Not much to add from GI standpoint, will sign off This patient has been seen by myself and Dr. Vera and this note is written on his been <Yovany Pulido - Last Filed: 10/04/18 16:10> (1) Hematemesis Status: Deleted Code(s): K92.0 - Hematemesis (2) Cirrhosis Status: Deleted Code(s): K74.60 - Unspecified cirrhosis of liver (3) Hx of hepatitis C Status: Deleted Code(s): Z86.19 - Personal history of other infectious and parasitic diseases (4) Thrombocytopenia Status: Deleted Code(s): D69.6 - Thrombocytopenia, unspecified (5) Tinea corporis Status: Acute Code(s): B35.4 - Tinea corporis (6) Hepatocellular carcinoma Status: Acute Code(s): C22.0 - Liver cell carcinoma - Attending Attestation I have seen and examined the patient and reviewed the relevant portions of the chart and discussed the patient's current complaints, results and findings with the [employer] INSTALLER. We have reviewed the therapeutic plan for the patient. I agree with the above assessment and recommendations as documented above. <Sukhi Vera - Last Filed: 10/05/18 09:09> <Yovany Pulido - Last Filed: 10/04/18 16:10> (1) Hematemesis Qualifiers: Nausea presence: unspecified Qualified Code(s): K92.0 - Hematemesis (2) Cirrhosis Qualifiers: Ascites presence: unspecified <Sukhi Vera - Last Filed: 10/05/18 09:09> (1) Hematemesis Qualifiers: Nausea presence: unspecified Qualified Code(s): K92.0 - Hematemesis (2) Cirrhosis Qualifiers: Ascites presence: unspecified
[2018-10-04] MEDS: Piperacil/Tazo 2.25 GM Premix 2.25 GM/50 ML PIGGYBACK IV.SIG SCH (18:51)
[2018-10-04 22:07] LABS: Hematocrit 23.4 % (39.0-51.0); Hemoglobin 8.2 gm/dL (13.0-17.0)
[2018-10-05] MEDS: Oral Hygiene Kit OROPHARYNG SCH ×2 (00:08→03:21)
[2018-10-05] MEDS: Piperacil/Tazo 2.25 GM Premix 2.25 GM/50 ML PIGGYBACK IV.SIG SCH ×2 (00:08→05:08)
[2018-10-05] MEDS: Artificial Tears Opth Drops 15 ML Bottle EACH EYE SCH ×2 (00:09→09:15)
[2018-10-05] MEDS: Insulin NovoLOG Aspart Correctional Sugar Inj SQ SCH ×2 (00:11→05:08)
[2018-10-05] MEDS: fentaNYL 10 mcg/mL Premix Drip 2,500 MCG/250 ML BAG IV.SIG PRN (01:28)
[2018-10-05] MEDS: Vasopressin Inj 40 UNIT in Dextrose 5% in Water Inj 98 ML IV.CONT PRN ×2 (03:20)
[2018-10-05] MEDS: Pantoprazole Inj 80 MG in Sodium Chlor 0.9% Inj 100 ML IV.CONT SCH (03:21)
[2018-10-05] MEDS: rifAXIMin 550 MG Tablet PO SCH (03:28)
[2018-10-05] MEDS: Hydrocortisone Sod Succinate 100 MG Vial IV.PUSH SCH (03:28)
[2018-10-05 04:05] LABS: Eos % (Auto) 0.1 % (0.0-4.0); Hematocrit 24.2 % (39.0-51.0); Hemoglobin 8.4 gm/dL (13.0-17.0); Lymph # (Auto) 0.3 th/mm3 (1.0-4.8); Lymph % (Auto) 4.7 % (9.0-44.0); Mean Corpuscular HGB Conc 34.5 % (32.0-36.0); Mean Corpuscular Hemoglobin 29.8 pg (27.0-34.0); Mean Corpuscular Volume 86.3 fL (80.0-100.0); Mean Platelet Volume 10.6 fL (7.0-11.0); Mono # (Auto) 0.5 th/mm3 (0.0-0.9); Mono % (Auto) 6.8 % (0.0-8.0); Neut # (Auto) 6.5 th/mm3 (1.8-7.7); Neut % (Auto) 88.4 % (16.0-70.0); Platelet Count 40 th/mm3 (150-450); Red Blood Count 2.81 mil/mm3 (4.50-5.90); Red Cell Distribution Width 16.6 % (11.6-17.2); White Blood Count 7.4 th/mm3 (4.0-11.0)
[2018-10-05 04:15] LABS: INR 2.6 Ratio; Prothrombin Time 25.8 sec (9.8-11.6)
[2018-10-05 04:48] LABS: Albumin 2.5 g/dL (3.4-5.0); Calcium 7.2 mg/dL (8.5-10.1); Carbon Dioxide 26.9 meq/L (21.0-32.0); Potassium 5.1 meq/L (3.5-5.1)
[2018-10-05 04:49] LABS: Polychromasia 3.4 % (0.0-1.9)
[2018-10-05 04:50] LABS: Acanthocytes Occ; Ovalocytes 1+; Platelet Morphology Normal (Normal)
[2018-10-05] MEDS: Octreotide Inj 500 MCG in Sodium Chlor 0.9% Inj 500 ML IV.CONT SCH (05:08)
--- NOTE | 2018-10-05 07:41 | P.PNCC ---
Subjective Subjective Remarks/Hospital Course: 09/22: Overnight the patient underwent EGD 5 columns of esophageal varices was located but no bleeding was noted per large blood clot was noted in the fundus and the duodenum 0 hemoglobin and hematocrits continue last hemoglobin noted to be 7.9. The patient continues on Protonix and octreotide infusions currently. Patient was noted to have a low normal blood pressure on propofol infusion this is been discontinued. Versed and fentanyl infusions initiated to maintain ventilator synchrony. Patient noted to have acute kidney injury creatinine downtrending slightly peer nephrology has been consulted appreciate recommendations per patient with known ascites last known paracentesis approximately 4 months ago peer INR within normal limits invasive radiology has been consulted for possible paracentesis. 09/23: The patient underwent CT-guided paracentesis yesterday 5.2 L removed the patient's FiO2 requirements continue to decrease PEEP has been decreased down to 5 FiO2 of 40%. Urine output 770 cc in 24hr. Lactulose enemas have been added to medication regimen twice daily secondary to hyperammonemia. 09/24: Afebrile. Continues with low urine output. Ventilator settings stable. Went to A. fib with RVR. Laboratories pending. EKG pending. On fentanyl drip sedation 100 mcg an hour. 09/25: NG tube placed today. Remains on the ventilator. Withdraws to pain. Positive cough and gag. Ammonia level down to 84. 09/26: Currently resting in bed in no acute distress. Minimally responsive on the ventilator off all sedation. MRI of the brain currently pending. Ammonia level is currently 91. 09/27: Afebrile. More awake today. MRI brain revealed no acute findings. Currently on CPAP trial. 09/28: Decompressed stomach this a.m. Appears comfortable and tolerating CPAP trials. We will give 1 dose of furosemide attempt extubate today if minimal ascites evaluated. 09/29 Patient was extubated yesterday pulled his NGT and PIV overnight. Afebrile. s/p Paracentesis with removal 4L. Afebrile. 09/30 Patient is lying in bed in NAD. Afebrile. 10/01: Afebrile. Resting in bed in no acute distress. Tolerating clear liquid diet. Ammonia level is 34. Positive BM. SUBJECTIVE: 10/03: Patient hypotensive this a.m. and tachypneic. Emergently intubated using glide scope. Currently norepinephrine drip. Stat central line placed. All a.m. labs are currently pending. 10/04 Patient was intubated yesterday. Sedated with Versed and Fentanyl drips. On Levophed 14 mics, Vasopressin 0.04 and bicarb drip. In addition he is on Octreotide and Protonix drips. 10/05 Patient remains intubated and sedated with Fentanyl infusion. Levophed is down 2 mics remains on Vasopressin 0.04. On protonix and Octreotide drips. Renal function is worse with Cr:3.1 from 2.61. s/p transfusion 1u PRBC. Objective Vital Signs / I&O: Vital Signs 10/04/18 07:34 10/04/18 07:40 10/04/18 07:45 Temperature Pulse Rate 79 76 78 Respiratory Rate 24 24 Blood Pressure 94/52 L Pulse Oximetry 100 10/04/18 07:50 10/04/18 08:00 10/04/18 08:10 Temperature 99.0 F Pulse Rate 78 78 78 Respiratory Rate 24 24 24 Blood Pressure 86/48 L 92/55 L 96/52 L Pulse Oximetry 100 100 100 10/04/18 08:20 10/04/18 08:30 10/04/18 08:40 Temperature 99.1 F 99.3 F Pulse Rate 78 79 79 Respiratory Rate 24 24 24 Blood Pressure 92/51 L 92/51 L 92/51 L Pulse Oximetry 100 100 100 10/04/18 08:50 10/04/18 09:00 10/04/18 09:10 Temperature 99.3 F Pulse Rate 79 79 79 Respiratory Rate 24 24 24 Blood Pressure 92/53 L 90/51 L 92/51 L Pulse Oximetry 100 100 100 10/04/18 09:20 10/04/18 09:30 10/04/18 09:40 Temperature Pulse Rate 79 79 79 Respiratory Rate 24 24 24 Blood Pressure 91/52 L 93/52 L 87/52 L Pulse Oximetry 100 100 100 10/04/18 09:50 10/04/18 10:00 10/04/18 10:10 Temperature Pulse Rate 80 80 80 Respiratory Rate 24 24 24 Blood Pressure 89/52 L 90/52 L 90/51 L Pulse Oximetry 100 100 100 10/04/18 10:20 10/04/18 10:30 10/04/18 10:40 Temperature Pulse Rate 79 79 78 Respiratory Rate 24 24 24 Blood Pressure 86/50 L 84/49 L 80/47 L Pulse Oximetry 100 100 100 10/04/18 11:05 10/04/18 11:09 10/04/18 11:25 Temperature 98.9 F 98.6 F Pulse Rate 78 78 72 Respiratory Rate 24 24 Blood Pressure 88/53 L 102/54 L Pulse Oximetry 100 10/04/18 11:38 10/04/18 12:00 10/04/18 12:05 Temperature Pulse Rate 78 78 78 Respiratory Rate 24 Blood Pressure 94/52 L Pulse Oximetry 100 10/04/18 14:05 10/04/18 14:40 10/04/18 14:50 Temperature 97.9 F Pulse Rate 76 72 Respiratory Rate 24 Blood Pressure 84/53 L 87/55 L Pulse Oximetry 100 10/04/18 15:00 10/04/18 15:01 10/04/18 15:07 Temperature 97.7 F 97.7 F Pulse Rate 59 L 56 L 58 L Respiratory Rate 24 24 24 Blood Pressure 122/60 Pulse Oximetry 100 100 10/04/18 15:10 10/04/18 15:20 10/04/18 15:30 Temperature 97.7 F 97.7 F Pulse Rate 58 L 66 73 Respiratory Rate 24 24 24 Blood Pressure 128/61 122/59 L 115/57 L Pulse Oximetry 100 100 100 10/04/18 15:32 10/04/18 15:40 10/04/18 15:50 Temperature Pulse Rate 74 75 74 Respiratory Rate 24 24 24 Blood Pressure 117/57 L 104/58 L 84/46 L Pulse Oximetry 100 100 100 10/04/18 16:00 10/04/18 16:06 10/04/18 16:10 Temperature 97.5 F L Pulse Rate 73 76 76 Respiratory Rate 24 24 24 Blood Pressure 81/49 L 86/53 L 75/46 L Pulse Oximetry 100 100 100 10/04/18 16:11 10/04/18 16:16 10/04/18 16:20 Temperature Pulse Rate 75 74 Respiratory Rate 24 24 24 Blood Pressure 79/48 L 67/41 L Pulse Oximetry 100 100 100 10/04/18 16:30 10/04/18 16:40 10/04/18 16:50 Temperature Pulse Rate 73 73 72 Respiratory Rate 24 24 24 Blood Pressure 70/45 L 75/48 L 76/48 L Pulse Oximetry 100 100 100 10/04/18 17:00 10/04/18 17:10 10/04/18 17:20 Temperature Pulse Rate 70 68 69 Respiratory Rate 24 24 24 Blood Pressure 88/53 L 92/50 L 93/50 L Pulse Oximetry 100 100 100 10/04/18 17:30 10/04/18 17:40 10/04/18 17:50 Temperature Pulse Rate 68 68 69 Respiratory Rate 24 24 24 Blood Pressure 98/56 L 95/50 L 92/55 L Pulse Oximetry 100 100 100 10/04/18 18:00 10/04/18 18:10 10/04/18 18:50 Temperature 97.7 F 97.9 F 98.2 F Pulse Rate 69 71 71 Respiratory Rate 24 24 24 Blood Pressure 92/55 L 90/54 L 96/55 L Pulse Oximetry 100 100 100 10/04/18 19:00 10/04/18 19:10 10/04/18 19:20 Temperature 98.4 F 98.4 F 98.6 F Pulse Rate 72 73 73 Respiratory Rate 24 24 24 Blood Pressure 93/54 L 91/50 L 92/51 L Pulse Oximetry 100 100 100 10/04/18 19:30 10/04/18 19:40 10/04/18 19:50 Temperature 98.8 F 98.8 F 99.0 F Pulse Rate 74 74 74 Respiratory Rate 24 24 24 Blood Pressure 91/53 L 88/52 L 87/52 L Pulse Oximetry 100 100 100 10/04/18 19:56 10/04/18 19:58 10/04/18 20:00 Temperature 99.1 F Pulse Rate 74 75 Respiratory Rate 24 24 24 Blood Pressure 86/52 L Pulse Oximetry 100 100 10/04/18 20:10 10/04/18 20:20 10/04/18 20:30 Temperature 99.1 F 99.1 F 99.3 F Pulse Rate 75 77 77 Respiratory Rate 24 24 24 Blood Pressure 96/54 L 86/52 L 92/54 L Pulse Oximetry 100 100 100 10/04/18 20:40 10/04/18 20:50 10/04/18 21:00 Temperature 99.3 F 99.3 F 99.5 F Pulse Rate 77 78 79 Respiratory Rate 24 24 24 Blood Pressure 89/52 L 91/53 L 93/54 L Pulse Oximetry 100 100 100 10/04/18 21:10 10/04/18 21:20 10/04/18 21:30 Temperature 99.5 F 99.5 F 99.7 F H Pulse Rate 79 79 79 Respiratory Rate 24 24 24 Blood Pressure 90/53 L 92/53 L 89/53 L Pulse Oximetry 100 100 100 10/04/18 21:40 10/04/18 21:50 10/04/18 22:00 Temperature 99.7 F H 99.7 F H 99.9 F H Pulse Rate 80 81 79 Respiratory Rate 24 24 24 Blood Pressure 91/53 L 90/54 L 96/54 L Pulse Oximetry 100 100 100 10/04/18 22:10 10/04/18 22:20 10/04/18 22:30 Temperature 99.9 F H 99.9 F H 99.9 F H Pulse Rate 80 80 80 Respiratory Rate 24 24 24 Blood Pressure 93/54 L 92/54 L 93/54 L Pulse Oximetry 100 100 100 10/04/18 22:40 10/04/18 22:50 10/04/18 23:00 Temperature 99.9 F H 99.9 F H 99.9 F H Pulse Rate 80 80 80 Respiratory Rate 24 24 24 Blood Pressure 91/54 L 93/54 L 92/54 L Pulse Oximetry 100 100 100 10/04/18 23:10 10/04/18 23:20 10/04/18 23:30 Temperature 99.9 F H 99.9 F H 99.9 F H Pulse Rate 80 80 79 Respiratory Rate 24 24 24 Blood Pressure 94/53 L 94/55 L 92/54 L Pulse Oximetry 100 100 100 10/04/18 23:40 10/04/18 23:50 10/05/18 00:00 Temperature 99.9 F H 99.9 F H 99.9 F H Pulse Rate 80 79 80 Respiratory Rate 24 24 24 Blood Pressure 95/54 L 95/54 L 96/54 L Pulse Oximetry 100 100 100 10/05/18 00:10 10/05/18 00:20 10/05/18 00:30 Temperature 99.9 F H 99.9 F H 99.9 F H Pulse Rate 80 80 80 Respiratory Rate 24 24 24 Blood Pressure 95/53 L 97/54 L 96/55 L Pulse Oximetry 100 100 100 10/05/18 00:40 10/05/18 00:50 10/05/18 01:00 Temperature 99.9 F H 99.7 F H 99.7 F H Pulse Rate 80 80 80 Respiratory Rate 24 24 24 Blood Pressure 96/54 L 96/54 L 99/55 L Pulse Oximetry 100 100 100 10/05/18 01:10 10/05/18 01:20 10/05/18 01:30 Temperature 99.7 F H 99.7 F H 99.7 F H Pulse Rate 80 80 79 Respiratory Rate 24 24 24 Blood Pressure 98/54 L 97/55 L 99/56 L Pulse Oximetry 100 100 100 10/05/18 01:40 10/05/18 01:50 10/05/18 02:00 Temperature 99.7 F H 99.5 F Pulse Rate 79 78 78 Respiratory Rate 24 24 Blood Pressure 95/53 L 101/55 L Pulse Oximetry 100 100 10/05/18 03:35 10/05/18 03:36 Temperature Pulse Rate 76 Respiratory Rate 24 24 Blood Pressure Pulse Oximetry 100 Intake & Output 10/04/18 10/05/18 10/05/18 18:59 06:59 18:59 Intake Total 873.7 / 873.7 1459.8 / 1459.8 Output Total 600 / 600 Balance 273.7 / 273.7 1459.8 / 1459.8 Intake: IV 873.7 / 873.7 1459.8 / 1459.8 Levophed Inj 16 MG In NS Inj 55 / 55 234 ML @ 2 MCG/MIN 1.87 mls/hr IV.CONT TITRATE PRN Rx#: [id number] SandoSTATIN Inj 500 MCG In NS 567.2 / 567.2 534 / 534 Inj 500 ML @ 50 MCG/HR 50.05 mls/hr IV.CONT .Q10H NALINI Rx#: [id number] Protonix Inj 80 MG In NS Inj 7.3 / 7.3 192.7 / 192.7 100 ML @ 10 mls/hr IV.CONT Q10H NALINI Rx#:[id number] Sodium Bicarbonate 8.4% Inj 150 0 / 0 MEQ In Sterile Water for Inj 850 ML @ 150 mls/hr IV.CONT . Q6H40M NALINI Rx#:[id number] Pitressin Inj 40 UNIT In D5W 88.2 / 88.2 32 / 32 Inj 98 ML @ 0.04 UNITS/MIN 6 mls/hr IV.CONT CONT PRN Rx#: [id number] Zosyn 2.25 GM Premix 2.25 gm In 100 / 100 50 ml @ 100 mls/hr IV.SIG Q6H [facility] Rx#:[id number] Zosyn 3.375 GM Premix 3.375 gm 50 / 50 In 50 ml @ 100 mls/hr IV.SIG Q6H [facility] Rx#:[id number] fentaNYL 10 mcg/mL Premix Drip 106 / 106 36.1 / 36.1 2,500 mcg In 250 ml @ 50 MCG/HR 5 mls/hr IV.SIG TITRATE PRN Rx #:[id number] Oral 0 / 0 Intake (Blood Product) Amt 0 / 0 Rbc As-3 Leukoreduced Unit 0 / 0 [id number] Output: Urine Amount (Catheter) 300 / 300 Indwelling Urethral Catheter 300 / 300 Gastric Drainage 300 / 300 Orogastric Tube 300 / 300 Other: Date of Last Bowel Movement 10/02/18 10/02/18 Result Diagrams: 10/05/18 07:49 10/05/18 03:40 Other Results: Laboratory Results - last 12 hr 10/04/18 10/04/18 10/05/18 21:45 21:45 00:10 WBC RBC Hgb 8.2 L Hct 23.4 L MCV MCH MCHC RDW Plt Count MPV Prelim Diff (Auto) Neut % (Auto) Lymph % (Auto) Stewart % (Auto) Eos % (Auto) Baso % (Auto) Neut # (Auto) Lymph # (Auto) Stewart # (Auto) Eos # (Auto) Baso # (Auto) WBC Differential Diff Scan Differential Comment Platelet Estimate Platelet Morphology Polychromasia Basophilic Stippling Ovalocytes Acanthocytes (Spur) Keratocytes PT INR Sodium Potassium Chloride Carbon Dioxide Anion Gap BUN Creatinine Estimated GFR POC Glucose 145 H Random Glucose Lactic Acid 5.9 H* Calcium Calcium Adj for Albumin Total Bilirubin AST ALT Alkaline Phosphatase Total Protein Albumin 10/05/18 10/05/18 10/05/18 03:40 03:40 03:40 WBC 7.4 RBC 2.81 L Hgb 8.4 L Hct 24.2 L MCV 86.3 MCH 29.8 MCHC 34.5 RDW 16.6 Plt Count 40 L D MPV 10.6 Prelim Diff (Auto) Slide review pending Neut % (Auto) 88.4 H Lymph % (Auto) 4.7 L Stewart % (Auto) 6.8 Eos % (Auto) 0.1 Baso % (Auto) 0.0 Neut # (Auto) 6.5 Lymph # (Auto) 0.3 L Stewart # (Auto) 0.5 Eos # (Auto) 0.0 Baso # (Auto) 0.0 WBC Differential . Diff Scan Auto diff confirmed Differential Comment . Platelet Estimate Low L Platelet Morphology Normal Polychromasia 3.4 H Basophilic Stippling Faint H Ovalocytes 1+ H Acanthocytes (Spur) Occ H Keratocytes Occ H PT 25.8 H INR 2.6 Sodium Potassium Chloride Carbon Dioxide Anion Gap BUN Creatinine Estimated GFR POC Glucose Random Glucose Lactic Acid 5.6 H* Calcium Calcium Adj for Albumin Total Bilirubin AST ALT Alkaline Phosphatase Total Protein Albumin 10/05/18 03:40 WBC RBC Hgb Hct MCV MCH MCHC RDW Plt Count MPV Prelim Diff (Auto) Neut % (Auto) Lymph % (Auto) Stewart % (Auto) Eos % (Auto) Baso % (Auto) Neut # (Auto) Lymph # (Auto) Stewart # (Auto) Eos # (Auto) Baso # (Auto) WBC Differential Diff Scan Differential Comment Platelet Estimate Platelet Morphology Polychromasia Basophilic Stippling Ovalocytes Acanthocytes (Spur) Keratocytes PT INR Sodium 145 Potassium 5.1 Chloride 106 Carbon Dioxide 26.9 Anion Gap 12 BUN 72 H Creatinine 3.18 H Estimated GFR 19 L POC Glucose Random Glucose 136 H Lactic Acid Calcium 7.2 L* Calcium Adj for Albumin 8.4 L Total Bilirubin 8.0 H AST 2177 H ALT 1023 H Alkaline Phosphatase 97 Total Protein 5.0 L Albumin 2.5 L Imaging: Paracentesis CT 09/22/18 14:08 CONCLUSION: 1. Uncomplicated CT Guided paracentesis. Abdomen/Bladder Ultrasound 09/23/18 00:00 CONCLUSION: 1. Echogenic kidneys consistent with medical renal disease. 2. Cirrhotic liver with ascites. 3. Small right pleural effusion, likely hepatic hydrothorax. Head MRI 09/26/18 00:00 CONCLUSION: 1. Negative for acute process. Abdomen X-Ray 10/03/18 09:35 CONCLUSION: 1. Persistent marked gastric distention suggestive of gastric outlet obstruction. Clinical correlation is recommended. 2. Nasogastric tube has its tip in the proximal stomach. 3. Degenerative changes throughout the thoracolumbar spine. Chest X-Ray 10/04/18 06:00 CONCLUSION: Support apparatus in good position. Stable elevated right hemidiaphragm and mild basilar airspace disease. Objective Remarks: GENERAL: 78-year-old male currently orotracheally intubated SKIN: Warm and dry. Petechiae over her abdomen and left hip HEAD: Atraumatic. Normocephalic. EYES: Pupils equal and round about 3 meals bilaterally reactive.. Slight scleral icterus. No injection or drainage. ENT: No nasal bleeding or discharge. Mucous membranes pink and moist. Left IJ CVL in place NECK: Trachea midline. No JVD. CARDIOVASCULAR: RRR. S1, S2. No S4. S1, S2. No S4. RESPIRATORY: Rhonchorous breath sounds appreciated no wheezing. GASTROINTESTINAL: Distended. Slightly tympanic. Bowel sounds are hypoactive. MUSCULOSKELETAL: 1+ bilateral pedal edema NEUROLOGICAL: Sedated and intubated. Procedures: 09/21- EGD 09/22-CT guided paracentesis 2.5 L removed Assessment and Plan - Assessment and Plan Plan: NEURO/PSYCH: History of stroke with residual aphasia Daily sedation vacation Goal of RA SS -2 On Fentanyl infusion for sedation/analgesia while intubated MRI brain 09/26 without acute intracranial findings RESP: Acute respiratory failure Extubated 09/28. Reintubated 10/03 Continue with vent support keep sats >92%. Decrease RR 20 Ventilator bundle Head of bed at 30 degrees Albuterol/ipratropium aerosols every 4 hours with albuterol aerosols every 2 hours as needed dyspnea Spontaneous breathing trials when clinically indicated CV: Shock likely hemorrhagic plus or minus septic Essential hypertension Atrial fibrillation currently normal sinus rhythm Wean off pressors (On Levophed 2 mics and Vasopressin 0.04)Monitor HR and BP keep MAP>65mmHg Serial lactic acid monitoring till clear... trending down Stress dose steroids- HC 50mg IV Q6 GI: Upper GI bleed secondary to esophageal varices now s/p banding Ischemic Hepatitis Hx Hep C Cirrhosis Hepatocellular carcinoma s/p TACE procedure Recurrent ascites Hyperammonemia Hypoalbuminemia N.p.o. status. NG tube to low inner wall suction Pantoprazole 8 mg an hour Octreotide drip 50 mcg an hour 09/21 GI consulted emergently, Dr. Beverly. Esophageal varices banded. Reportedly no active bleeding but unable to rule out gastric varices due to presence of clots in the stomach. 09/28- Paracentesis with removal 4.2L. 09/22paracentesis 5.2 L removed Xifaxan 550 twice daily and lactulose 30 cc 4 times daily. Ammonia level 42 10/04 FEN/RENAL: MART (unknown baseline creatinine) Hypernatremia Hypophosphatemia Monitor renal function, I/O's, electrolytes replacement as needed Nephrology following. Off bicarb drip. Renal function is worse with Cr: 3.18 from 2.61 ID: Currently on ceftriaxone and Vanco. Monitor for signs of infections ( Fever, WBC ) Follow up on sputum and blood cx from 10/03 Sputum culture no growth to date HEME: Acute blood loss anemia/normocytic Thrombocytopenia Coagulopathy with elevated INR s/p transfusion 1u PRBC 10/04 s/p Transfer using 2 PRBCs 10/03 Monitor CBC daily. Follow trends. Monitor CBC, coags. Will give FFP 2units for INR 2.6, 1u PLT and 2u PRBC. Check Fibrinogen level. Will give Vitamin K 10mg IV x1 since patient is bleeding ENDO: Sliding scale insulin aspart insulin/low regimen to maintain euglycemia every 6 hours TSH 0.163. Total T3 is low. Free T3 was/low normal. PROPH: SCDs for DVT prophylaxis. Pharmacologic DVT prophylaxis is contraindicated. Pantoprazole drip ACCESS: Left IJ CVL placed 10/03 Palliative care is following Prognosis is guarded giving MODS picture. Critical care time 40 minutes
[2018-10-05] MEDS: Norepinephrine Inj 16 MG in Sodium Chlor 0.9% Inj 234 ML IV.CONT PRN (07:54)
[2018-10-05 07:55] LABS: Hematocrit 21.3 % (39.0-51.0); Hemoglobin 7.3 gm/dL (13.0-17.0)
[2018-10-05] MEDS ORDERED: Phytonadione Inj 10 MG in Sodium Chlor 0.9% Inj 50 ML IV.SIG ONE (08:39)
[2018-10-05 08:41] LABS: INR 3.2 Ratio; Prothrombin Time 31.9 sec (9.8-11.6)
[2018-10-05] MEDS ORDERED: Phenylephrine Inj 80 MG in Sodium Chlor 0.9% Inj 492 ML IV.CONT PRN (09:00)
[2018-10-05] MEDS: Chlorhexidine 0.12% Oral Kit 15 ML UDC OROPHARYNG SCH (09:15)
--- NOTE | 2018-10-05 09:44 | P.PNGI ---
Subjective Interval history: Reconsulted for active bleed. Pt is intubated, actively bleeding. Per nurse, pt had multiple melanotic stools, OGT with bright bloody out put. Patient is maxed on pressors, but still critically hypotensive. receiving FFP, RBC, Plt, and Cryo transfusions. <Yovany Pulido - Last Filed: 10/05/18 09:33> Physical Exam Vital signs: Vital Signs 10/04/18 09:40 10/04/18 09:50 10/04/18 10:00 Temperature Pulse Rate 79 80 80 Respiratory Rate 24 24 24 Blood Pressure 87/52 L 89/52 L 90/52 L Pulse Oximetry 100 100 100 10/04/18 10:10 10/04/18 10:20 10/04/18 10:30 Temperature Pulse Rate 80 79 79 Respiratory Rate 24 24 24 Blood Pressure 90/51 L 86/50 L 84/49 L Pulse Oximetry 100 100 100 10/04/18 10:40 10/04/18 11:05 10/04/18 11:09 Temperature 98.9 F Pulse Rate 78 78 78 Respiratory Rate 24 24 Blood Pressure 80/47 L 88/53 L Pulse Oximetry 100 100 10/04/18 11:25 10/04/18 11:38 10/04/18 12:00 Temperature 98.6 F Pulse Rate 72 78 78 Respiratory Rate 24 24 Blood Pressure 102/54 L 94/52 L Pulse Oximetry 100 10/04/18 12:05 10/04/18 14:05 10/04/18 14:40 Temperature Pulse Rate 78 76 Respiratory Rate Blood Pressure 84/53 L Pulse Oximetry 10/04/18 14:50 10/04/18 15:00 10/04/18 15:01 Temperature 97.9 F 97.7 F 97.7 F Pulse Rate 72 59 L 56 L Respiratory Rate 24 24 24 Blood Pressure 87/55 L 122/60 Pulse Oximetry 100 100 100 10/04/18 15:07 10/04/18 15:10 10/04/18 15:20 Temperature 97.7 F 97.7 F Pulse Rate 58 L 58 L 66 Respiratory Rate 24 24 24 Blood Pressure 128/61 122/59 L Pulse Oximetry 100 100 10/04/18 15:30 10/04/18 15:32 10/04/18 15:40 Temperature Pulse Rate 73 74 75 Respiratory Rate 24 24 24 Blood Pressure 115/57 L 117/57 L 104/58 L Pulse Oximetry 100 100 100 10/04/18 15:50 10/04/18 16:00 10/04/18 16:06 Temperature 97.5 F L Pulse Rate 74 73 76 Respiratory Rate 24 24 24 Blood Pressure 84/46 L 81/49 L 86/53 L Pulse Oximetry 100 100 100 10/04/18 16:10 10/04/18 16:11 10/04/18 16:16 Temperature Pulse Rate 76 75 Respiratory Rate 24 24 24 Blood Pressure 75/46 L 79/48 L Pulse Oximetry 100 100 100 10/04/18 16:20 10/04/18 16:30 10/04/18 16:40 Temperature Pulse Rate 74 73 73 Respiratory Rate 24 24 24 Blood Pressure 67/41 L 70/45 L 75/48 L Pulse Oximetry 100 100 100 10/04/18 16:50 10/04/18 17:00 10/04/18 17:10 Temperature Pulse Rate 72 70 68 Respiratory Rate 24 24 24 Blood Pressure 76/48 L 88/53 L 92/50 L Pulse Oximetry 100 100 100 10/04/18 17:20 10/04/18 17:30 10/04/18 17:40 Temperature Pulse Rate 69 68 68 Respiratory Rate 24 24 24 Blood Pressure 93/50 L 98/56 L 95/50 L Pulse Oximetry 100 100 100 10/04/18 17:50 10/04/18 18:00 10/04/18 18:10 Temperature 97.7 F 97.9 F Pulse Rate 69 69 71 Respiratory Rate 24 24 24 Blood Pressure 92/55 L 92/55 L 90/54 L Pulse Oximetry 100 100 100 10/04/18 18:50 10/04/18 19:00 10/04/18 19:10 Temperature 98.2 F 98.4 F 98.4 F Pulse Rate 71 72 73 Respiratory Rate 24 24 24 Blood Pressure 96/55 L 93/54 L 91/50 L Pulse Oximetry 100 100 100 10/04/18 19:20 10/04/18 19:30 10/04/18 19:40 Temperature 98.6 F 98.8 F 98.8 F Pulse Rate 73 74 74 Respiratory Rate 24 24 24 Blood Pressure 92/51 L 91/53 L 88/52 L Pulse Oximetry 100 100 100 10/04/18 19:50 10/04/18 19:56 10/04/18 19:58 Temperature 99.0 F Pulse Rate 74 74 Respiratory Rate 24 24 24 Blood Pressure 87/52 L Pulse Oximetry 100 100 10/04/18 20:00 10/04/18 20:10 10/04/18 20:20 Temperature 99.1 F 99.1 F 99.1 F Pulse Rate 75 75 77 Respiratory Rate 24 24 24 Blood Pressure 86/52 L 96/54 L 86/52 L Pulse Oximetry 100 100 100 10/04/18 20:30 10/04/18 20:40 10/04/18 20:50 Temperature 99.3 F 99.3 F 99.3 F Pulse Rate 77 77 78 Respiratory Rate 24 24 24 Blood Pressure 92/54 L 89/52 L 91/53 L Pulse Oximetry 100 100 100 10/04/18 21:00 10/04/18 21:10 10/04/18 21:20 Temperature 99.5 F 99.5 F 99.5 F Pulse Rate 79 79 79 Respiratory Rate 24 24 24 Blood Pressure 93/54 L 90/53 L 92/53 L Pulse Oximetry 100 100 100 10/04/18 21:30 10/04/18 21:40 10/04/18 21:50 Temperature 99.7 F H 99.7 F H 99.7 F H Pulse Rate 79 80 81 Respiratory Rate 24 24 24 Blood Pressure 89/53 L 91/53 L 90/54 L Pulse Oximetry 100 100 100 10/04/18 22:00 10/04/18 22:10 10/04/18 22:20 Temperature 99.9 F H 99.9 F H 99.9 F H Pulse Rate 79 80 80 Respiratory Rate 24 24 24 Blood Pressure 96/54 L 93/54 L 92/54 L Pulse Oximetry 100 100 100 10/04/18 22:30 10/04/18 22:40 10/04/18 22:50 Temperature 99.9 F H 99.9 F H 99.9 F H Pulse Rate 80 80 80 Respiratory Rate 24 24 24 Blood Pressure 93/54 L 91/54 L 93/54 L Pulse Oximetry 100 100 100 10/04/18 23:00 10/04/18 23:10 10/04/18 23:20 Temperature 99.9 F H 99.9 F H 99.9 F H Pulse Rate 80 80 80 Respiratory Rate 24 24 24 Blood Pressure 92/54 L 94/53 L 94/55 L Pulse Oximetry 100 100 100 10/04/18 23:30 10/04/18 23:40 10/04/18 23:50 Temperature 99.9 F H 99.9 F H 99.9 F H Pulse Rate 79 80 79 Respiratory Rate 24 24 24 Blood Pressure 92/54 L 95/54 L 95/54 L Pulse Oximetry 100 100 100 10/05/18 00:00 10/05/18 00:10 10/05/18 00:20 Temperature 99.9 F H 99.9 F H 99.9 F H Pulse Rate 80 80 80 Respiratory Rate 24 24 24 Blood Pressure 96/54 L 95/53 L 97/54 L Pulse Oximetry 100 100 100 10/05/18 00:30 10/05/18 00:40 10/05/18 00:50 Temperature 99.9 F H 99.9 F H 99.7 F H Pulse Rate 80 80 80 Respiratory Rate 24 24 24 Blood Pressure 96/55 L 96/54 L 96/54 L Pulse Oximetry 100 100 100 10/05/18 01:00 10/05/18 01:10 10/05/18 01:20 Temperature 99.7 F H 99.7 F H 99.7 F H Pulse Rate 80 80 80 Respiratory Rate 24 24 24 Blood Pressure 99/55 L 98/54 L 97/55 L Pulse Oximetry 100 100 100 10/05/18 01:30 10/05/18 01:40 10/05/18 01:50 Temperature 99.7 F H 99.7 F H 99.5 F Pulse Rate 79 79 78 Respiratory Rate 24 24 24 Blood Pressure 99/56 L 95/53 L 101/55 L Pulse Oximetry 100 100 100 10/05/18 02:00 10/05/18 03:35 10/05/18 03:36 Temperature Pulse Rate 78 76 Respiratory Rate 24 24 Blood Pressure Pulse Oximetry 100 10/05/18 03:40 10/05/18 03:50 10/05/18 04:00 Temperature 98.8 F 98.8 F 98.6 F Pulse Rate 79 77 76 Respiratory Rate 24 24 24 Blood Pressure 81/45 L 94/53 L 96/55 L Pulse Oximetry 100 100 100 10/05/18 04:10 10/05/18 04:20 10/05/18 04:30 Temperature 98.6 F 98.4 F 98.4 F Pulse Rate 77 75 75 Respiratory Rate 24 24 24 Blood Pressure 99/56 L 99/55 L 100/57 L Pulse Oximetry 100 100 100 10/05/18 04:40 10/05/18 04:50 10/05/18 05:00 Temperature 98.4 F 98.2 F 98.2 F Pulse Rate 75 75 74 Respiratory Rate 24 24 24 Blood Pressure 100/56 L 100/56 L 101/57 L Pulse Oximetry 100 100 100 10/05/18 05:10 10/05/18 05:20 10/05/18 05:30 Temperature 98.1 F 98.1 F 98.1 F Pulse Rate 74 74 74 Respiratory Rate 24 24 24 Blood Pressure 98/55 L 99/56 L 98/56 L Pulse Oximetry 100 100 100 10/05/18 05:40 10/05/18 05:50 10/05/18 06:00 Temperature 98.1 F 98.2 F 98.2 F Pulse Rate 75 75 74 Respiratory Rate 24 24 24 Blood Pressure 97/56 L 95/54 L 95/50 L Pulse Oximetry 100 100 100 10/05/18 06:10 10/05/18 06:20 10/05/18 06:30 Temperature 98.2 F 98.4 F 98.4 F Pulse Rate 75 75 78 Respiratory Rate 24 24 24 Blood Pressure 94/50 L 92/50 L 95/52 L Pulse Oximetry 100 100 100 10/05/18 06:40 10/05/18 06:50 10/05/18 07:00 Temperature 98.4 F 98.4 F Pulse Rate 77 77 79 Respiratory Rate 24 24 19 Blood Pressure 95/54 L 96/54 L 90/52 L Pulse Oximetry 100 100 94 L 10/05/18 07:10 10/05/18 07:20 10/05/18 07:30 Temperature Pulse Rate 79 87 85 Respiratory Rate 24 24 24 Blood Pressure 94/55 L 87/55 L 54/38 L Pulse Oximetry 100 100 100 10/05/18 07:35 10/05/18 07:42 10/05/18 07:43 Temperature Pulse Rate 86 93 H Respiratory Rate 24 25 H 27 H Blood Pressure 54/38 L Pulse Oximetry 100 100 10/05/18 08:20 10/05/18 08:47 Temperature 98.1 F Pulse Rate 108 H 109 H Respiratory Rate 24 24 Blood Pressure 52/37 L 58/37 L Pulse Oximetry Intake & Output 10/04/18 10/05/18 10/05/18 18:59 06:59 18:59 Intake Total 1273.7 / 1273.7 1579.8 / 1579.8 658 / 658 Output Total 600 / 600 850 / 850 Balance 673.7 / 673.7 729.8 / 729.8 658 / 658 Weight 95 kg Intake: IV 873.7 / 873.7 1459.8 / 1459.8 98 / 98 Levophed Inj 16 MG In NS Inj 55 / 55 48 / 48 234 ML @ 2 MCG/MIN 1.87 mls/hr IV.CONT TITRATE PRN Rx#: [id number] SandoSTATIN Inj 500 MCG In NS 567.2 / 567.2 534 / 534 Inj 500 ML @ 50 MCG/HR 50.05 mls/hr IV.CONT .Q10H NALINI Rx#: [id number] Protonix Inj 80 MG In NS Inj 7.3 / 7.3 192.7 / 192.7 100 ML @ 10 mls/hr IV.CONT Q10H NALINI Rx#:[id number] Sodium Bicarbonate 8.4% Inj 150 0 / 0 MEQ In Sterile Water for Inj 850 ML @ 150 mls/hr IV.CONT . Q6H40M NALINI Rx#:[id number] Pitressin Inj 40 UNIT In D5W 88.2 / 88.2 32 / 32 Inj 98 ML @ 0.04 UNITS/MIN 6 mls/hr IV.CONT CONT PRN Rx#: [id number] Zosyn 2.25 GM Premix 2.25 gm In 100 / 100 50 / 50 50 ml @ 100 mls/hr IV.SIG Q6H NALINI Rx#:[id number] Zosyn 3.375 GM Premix 3.375 gm 50 / 50 In 50 ml @ 100 mls/hr IV.SIG Q6H NLAINI Rx#:[id number] fentaNYL 10 mcg/mL Premix Drip 106 / 106 36.1 / 36.1 2,500 mcg In 250 ml @ 50 MCG/HR 5 mls/hr IV.SIG TITRATE PRN Rx #:[id number] Oral 0 / 0 Tube Irrigant 120 / 120 Intake (Blood Product) Amt 400 / 400 560 / 560 Plasma Thawed 5 Day Acda Unit 202 / 202 [id number] Plasma Thawed 5 Day Cp2d Unit 358 / 358 [id number] Rbc As-3 Leukoreduced Unit 0 / 0 [id number] Rbc As-3 Leukoreduced Unit 0 / 0 [id number] Rbc As-3 Leukoreduced Unit 400 / 400 [id number] Output: Urine Amount (Catheter) 300 / 300 350 / 350 Indwelling Urethral Catheter 300 / 300 350 / 350 Gastric Drainage 300 / 300 500 / 500 Orogastric Tube 300 / 300 500 / 500 Other: Date of Last Bowel Movement 10/02/18 10/02/18 # Bowel Movements 1 - Constitutional chronically ill appearing - Routine HEENT Exam Head: Present: normocephalic - Routine Respiratory Exam Present: patient mechanically ventilated - Routine Cardiovascular Exam Present: tachycardia - Routine Abdominal Exam Present: soft, normoactive bowel sounds - Routine Extremities Exam Present: edema - Routine Skin Exam Present: intact, dry - Routine Neurological Exam Intubated on a vent - Urinary Catheter Management Indwelling Temp Sensing Catheter Cath placed during this visit: yes, but has since been removed by the nurse Urethral indwelling: Yes Reason for continuing: Hourly intake/output Insertion date: 09/21/18 Insertion time: 20:00 Removal date: 09/25/18 Removal time: 15:45 Indwelling Urethral Catheter Cath placed during this visit: no <Yovany Pulido - Last Filed: 10/05/18 09:33> Vital signs: Vital Signs 10/04/18 10:10 10/04/18 10:20 10/04/18 10:30 Temperature Pulse Rate 80 79 79 Respiratory Rate 24 24 24 Blood Pressure 90/51 L 86/50 L 84/49 L Pulse Oximetry 100 100 100 10/04/18 10:40 10/04/18 11:05 10/04/18 11:09 Temperature 98.9 F Pulse Rate 78 78 78 Respiratory Rate 24 24 Blood Pressure 80/47 L 88/53 L Pulse Oximetry 100 100 10/04/18 11:25 10/04/18 11:38 10/04/18 12:00 Temperature 98.6 F Pulse Rate 72 78 78 Respiratory Rate 24 24 Blood Pressure 102/54 L 94/52 L Pulse Oximetry 100 10/04/18 12:05 10/04/18 14:05 10/04/18 14:40 Temperature Pulse Rate 78 76 Respiratory Rate Blood Pressure 84/53 L Pulse Oximetry 10/04/18 14:50 10/04/18 15:00 10/04/18 15:01 Temperature 97.9 F 97.7 F 97.7 F Pulse Rate 72 59 L 56 L Respiratory Rate 24 24 24 Blood Pressure 87/55 L 122/60 Pulse Oximetry 100 100 100 10/04/18 15:07 10/04/18 15:10 10/04/18 15:20 Temperature 97.7 F 97.7 F Pulse Rate 58 L 58 L 66 Respiratory Rate 24 24 24 Blood Pressure 128/61 122/59 L Pulse Oximetry 100 100 10/04/18 15:30 10/04/18 15:32 10/04/18 15:40 Temperature Pulse Rate 73 74 75 Respiratory Rate 24 24 24 Blood Pressure 115/57 L 117/57 L 104/58 L Pulse Oximetry 100 100 100 10/04/18 15:50 10/04/18 16:00 10/04/18 16:06 Temperature 97.5 F L Pulse Rate 74 73 76 Respiratory Rate 24 24 24 Blood Pressure 84/46 L 81/49 L 86/53 L Pulse Oximetry 100 100 100 10/04/18 16:10 10/04/18 16:11 10/04/18 16:16 Temperature Pulse Rate 76 75 Respiratory Rate 24 24 24 Blood Pressure 75/46 L 79/48 L Pulse Oximetry 100 100 100 10/04/18 16:20 10/04/18 16:30 10/04/18 16:40 Temperature Pulse Rate 74 73 73 Respiratory Rate 24 24 24 Blood Pressure 67/41 L 70/45 L 75/48 L Pulse Oximetry 100 100 100 10/04/18 16:50 10/04/18 17:00 10/04/18 17:10 Temperature Pulse Rate 72 70 68 Respiratory Rate 24 24 24 Blood Pressure 76/48 L 88/53 L 92/50 L Pulse Oximetry 100 100 100 10/04/18 17:20 10/04/18 17:30 10/04/18 17:40 Temperature Pulse Rate 69 68 68 Respiratory Rate 24 24 24 Blood Pressure 93/50 L 98/56 L 95/50 L Pulse Oximetry 100 100 100 10/04/18 17:50 10/04/18 18:00 10/04/18 18:10 Temperature 97.7 F 97.9 F Pulse Rate 69 69 71 Respiratory Rate 24 24 24 Blood Pressure 92/55 L 92/55 L 90/54 L Pulse Oximetry 100 100 100 10/04/18 18:50 10/04/18 19:00 10/04/18 19:10 Temperature 98.2 F 98.4 F 98.4 F Pulse Rate 71 72 73 Respiratory Rate 24 24 24 Blood Pressure 96/55 L 93/54 L 91/50 L Pulse Oximetry 100 100 100 10/04/18 19:20 10/04/18 19:30 10/04/18 19:40 Temperature 98.6 F 98.8 F 98.8 F Pulse Rate 73 74 74 Respiratory Rate 24 24 24 Blood Pressure 92/51 L 91/53 L 88/52 L Pulse Oximetry 100 100 100 10/04/18 19:50 10/04/18 19:56 10/04/18 19:58 Temperature 99.0 F Pulse Rate 74 74 Respiratory Rate 24 24 24 Blood Pressure 87/52 L Pulse Oximetry 100 100 10/04/18 20:00 10/04/18 20:10 10/04/18 20:20 Temperature 99.1 F 99.1 F 99.1 F Pulse Rate 75 75 77 Respiratory Rate 24 24 24 Blood Pressure 86/52 L 96/54 L 86/52 L Pulse Oximetry 100 100 100 10/04/18 20:30 10/04/18 20:40 10/04/18 20:50 Temperature 99.3 F 99.3 F 99.3 F Pulse Rate 77 77 78 Respiratory Rate 24 24 24 Blood Pressure 92/54 L 89/52 L 91/53 L Pulse Oximetry 100 100 100 10/04/18 21:00 10/04/18 21:10 10/04/18 21:20 Temperature 99.5 F 99.5 F 99.5 F Pulse Rate 79 79 79 Respiratory Rate 24 24 24 Blood Pressure 93/54 L 90/53 L 92/53 L Pulse Oximetry 100 100 100 10/04/18 21:30 10/04/18 21:40 10/04/18 21:50 Temperature 99.7 F H 99.7 F H 99.7 F H Pulse Rate 79 80 81 Respiratory Rate 24 24 24 Blood Pressure 89/53 L 91/53 L 90/54 L Pulse Oximetry 100 100 100 10/04/18 22:00 10/04/18 22:10 10/04/18 22:20 Temperature 99.9 F H 99.9 F H 99.9 F H Pulse Rate 79 80 80 Respiratory Rate 24 24 24 Blood Pressure 96/54 L 93/54 L 92/54 L Pulse Oximetry 100 100 100 10/04/18 22:30 10/04/18 22:40 10/04/18 22:50 Temperature 99.9 F H 99.9 F H 99.9 F H Pulse Rate 80 80 80 Respiratory Rate 24 24 24 Blood Pressure 93/54 L 91/54 L 93/54 L Pulse Oximetry 100 100 100 10/04/18 23:00 10/04/18 23:10 10/04/18 23:20 Temperature 99.9 F H 99.9 F H 99.9 F H Pulse Rate 80 80 80 Respiratory Rate 24 24 24 Blood Pressure 92/54 L 94/53 L 94/55 L Pulse Oximetry 100 100 100 10/04/18 23:30 10/04/18 23:40 10/04/18 23:50 Temperature 99.9 F H 99.9 F H 99.9 F H Pulse Rate 79 80 79 Respiratory Rate 24 24 24 Blood Pressure 92/54 L 95/54 L 95/54 L Pulse Oximetry 100 100 100 10/05/18 00:00 10/05/18 00:10 10/05/18 00:20 Temperature 99.9 F H 99.9 F H 99.9 F H Pulse Rate 80 80 80 Respiratory Rate 24 24 24 Blood Pressure 96/54 L 95/53 L 97/54 L Pulse Oximetry 100 100 100 10/05/18 00:30 10/05/18 00:40 10/05/18 00:50 Temperature 99.9 F H 99.9 F H 99.7 F H Pulse Rate 80 80 80 Respiratory Rate 24 24 24 Blood Pressure 96/55 L 96/54 L 96/54 L Pulse Oximetry 100 100 100 10/05/18 01:00 10/05/18 01:10 10/05/18 01:20 Temperature 99.7 F H 99.7 F H 99.7 F H Pulse Rate 80 80 80 Respiratory Rate 24 24 24 Blood Pressure 99/55 L 98/54 L 97/55 L Pulse Oximetry 100 100 100 10/05/18 01:30 10/05/18 01:40 10/05/18 01:50 Temperature 99.7 F H 99.7 F H 99.5 F Pulse Rate 79 79 78 Respiratory Rate 24 24 24 Blood Pressure 99/56 L 95/53 L 101/55 L Pulse Oximetry 100 100 100 10/05/18 02:00 10/05/18 03:35 10/05/18 03:36 Temperature Pulse Rate 78 76 Respiratory Rate 24 24 Blood Pressure Pulse Oximetry 100 10/05/18 03:40 10/05/18 03:50 10/05/18 04:00 Temperature 98.8 F 98.8 F 98.6 F Pulse Rate 79 77 76 Respiratory Rate 24 24 24 Blood Pressure 81/45 L 94/53 L 96/55 L Pulse Oximetry 100 100 100 10/05/18 04:10 10/05/18 04:20 10/05/18 04:30 Temperature 98.6 F 98.4 F 98.4 F Pulse Rate 77 75 75 Respiratory Rate 24 24 24 Blood Pressure 99/56 L 99/55 L 100/57 L Pulse Oximetry 100 100 100 10/05/18 04:40 10/05/18 04:50 10/05/18 05:00 Temperature 98.4 F 98.2 F 98.2 F Pulse Rate 75 75 74 Respiratory Rate 24 24 24 Blood Pressure 100/56 L 100/56 L 101/57 L Pulse Oximetry 100 100 100 10/05/18 05:10 10/05/18 05:20 10/05/18 05:30 Temperature 98.1 F 98.1 F 98.1 F Pulse Rate 74 74 74 Respiratory Rate 24 24 24 Blood Pressure 98/55 L 99/56 L 98/56 L Pulse Oximetry 100 100 100 10/05/18 05:40 10/05/18 05:50 10/05/18 06:00 Temperature 98.1 F 98.2 F 98.2 F Pulse Rate 75 75 74 Respiratory Rate 24 24 24 Blood Pressure 97/56 L 95/54 L 95/50 L Pulse Oximetry 100 100 100 10/05/18 06:10 10/05/18 06:20 10/05/18 06:30 Temperature 98.2 F 98.4 F 98.4 F Pulse Rate 75 75 78 Respiratory Rate 24 24 24 Blood Pressure 94/50 L 92/50 L 95/52 L Pulse Oximetry 100 100 100 10/05/18 06:40 10/05/18 06:50 10/05/18 07:00 Temperature 98.4 F 98.4 F Pulse Rate 77 77 79 Respiratory Rate 24 24 19 Blood Pressure 95/54 L 96/54 L 90/52 L Pulse Oximetry 100 100 94 L 10/05/18 07:10 10/05/18 07:20 10/05/18 07:30 Temperature Pulse Rate 79 87 85 Respiratory Rate 24 24 24 Blood Pressure 94/55 L 87/55 L 54/38 L Pulse Oximetry 100 100 100 10/05/18 07:35 10/05/18 07:42 10/05/18 07:43 Temperature Pulse Rate 86 93 H Respiratory Rate 24 25 H 27 H Blood Pressure 54/38 L Pulse Oximetry 100 100 10/05/18 08:20 10/05/18 08:47 10/05/18 09:38 Temperature 98.1 F 97.4 F L Pulse Rate 108 H 109 H 103 H Respiratory Rate 24 24 24 Blood Pressure 52/37 L 58/37 L 57/37 L Pulse Oximetry Intake & Output 10/04/18 10/05/18 10/05/18 18:59 06:59 18:59 Intake Total 1273.7 / 1273.7 1579.8 / 1579.8 886 / 886 Output Total 600 / 600 850 / 850 Balance 673.7 / 673.7 729.8 / 729.8 886 / 886 Weight 95 kg Intake: IV 873.7 / 873.7 1459.8 / 1459.8 98 / 98 Levophed Inj 16 MG In NS Inj 55 / 55 48 / 48 234 ML @ 2 MCG/MIN 1.87 mls/hr IV.CONT TITRATE PRN Rx#: [id number] SandoSTATIN Inj 500 MCG In NS 567.2 / 567.2 534 / 534 Inj 500 ML @ 50 MCG/HR 50.05 mls/hr IV.CONT .Q10H NALINI Rx#: [id number] Protonix Inj 80 MG In NS Inj 7.3 / 7.3 192.7 / 192.7 100 ML @ 10 mls/hr IV.CONT Q10H NALINI Rx#:[id number] Sodium Bicarbonate 8.4% Inj 150 0 / 0 MEQ In Sterile Water for Inj 850 ML @ 150 mls/hr IV.CONT . Q6H40M NALINI Rx#:[id number] Pitressin Inj 40 UNIT In D5W 88.2 / 88.2 32 / 32 Inj 98 ML @ 0.04 UNITS/MIN 6 mls/hr IV.CONT CONT PRN Rx#: [id number] Zosyn 2.25 GM Premix 2.25 gm In 100 / 100 50 / 50 50 ml @ 100 mls/hr IV.SIG Q6H NALINI Rx#:[id number] Zosyn 3.375 GM Premix 3.375 gm 50 / 50 In 50 ml @ 100 mls/hr IV.SIG Q6H NALINI Rx#:[id number] fentaNYL 10 mcg/mL Premix Drip 106 / 106 36.1 / 36.1 2,500 mcg In 250 ml @ 50 MCG/HR 5 mls/hr IV.SIG TITRATE PRN Rx #:[id number] Oral 0 / 0 Tube Irrigant 120 / 120 Intake (Blood Product) Amt 400 / 400 788 / 788 Plasma Thawed 5 Day Acda Unit 202 / 202 [id number] Plasma Thawed 5 Day Cp2d Unit 358 / 358 [id number] Prepooled Plts Leukoreduced 5d 228 / 228 Unit [id number] Rbc As-3 Leukoreduced Unit 0 / 0 [id number] Rbc As-3 Leukoreduced Unit 0 / 0 [id number] Rbc As-3 Leukoreduced Unit 400 / 400 [id number] Output: Urine Amount (Catheter) 300 / 300 350 / 350 Indwelling Urethral Catheter 300 / 300 350 / 350 Gastric Drainage 300 / 300 500 / 500 Orogastric Tube 300 / 300 500 / 500 Other: Date of Last Bowel Movement 10/02/18 10/02/18 # Bowel Movements 1 - Urinary Catheter Management Indwelling Temp Sensing Catheter Cath placed during this visit: no Indwelling Urethral Catheter Cath placed during this visit: no <Sukhi Vera - Last Filed: 10/05/18 10:05> Results - Labs CBC & Chem 7: 10/05/18 07:49 10/05/18 03:40 Laboratory Results - last 24 hr 10/04/18 10/04/18 10/04/18 07:25 10:15 12:45 WBC 13.2 H RBC 2.40 L Hgb 7.2 L Hct 20.9 L* MCV 86.7 MCH 30.1 MCHC 34.7 RDW 16.7 Plt Count 60 L MPV 10.4 Prelim Diff (Auto) Neut % (Auto) Lymph % (Auto) Starr % (Auto) Eos % (Auto) Baso % (Auto) Neut # (Auto) Lymph # (Auto) Starr # (Auto) Eos # (Auto) Baso # (Auto) WBC Differential Diff Scan Differential Comment Platelet Estimate Platelet Morphology Polychromasia Basophilic Stippling Ovalocytes Acanthocytes (Spur) Keratocytes PT INR Fibrinogen Sodium Potassium Chloride Carbon Dioxide Anion Gap BUN Creatinine Estimated GFR POC Glucose 111 H Random Glucose Lactic Acid Calcium Calcium Adj for Albumin Total Bilirubin AST ALT Alkaline Phosphatase Total Protein Albumin MTS Gel Crossmatch See Detail Blood Bank Comment Bld Prod Order Comment 10/04/18 10/04/18 10/04/18 15:05 15:05 18:03 WBC RBC Hgb 8.0 L Hct 23.3 L MCV MCH MCHC RDW Plt Count MPV Prelim Diff (Auto) Neut % (Auto) Lymph % (Auto) Starr % (Auto) Eos % (Auto) Baso % (Auto) Neut # (Auto) Lymph # (Auto) Starr # (Auto) Eos # (Auto) Baso # (Auto) WBC Differential Diff Scan Differential Comment Platelet Estimate Platelet Morphology Polychromasia Basophilic Stippling Ovalocytes Acanthocytes (Spur) Keratocytes PT INR Fibrinogen Sodium Potassium Chloride Carbon Dioxide Anion Gap BUN Creatinine Estimated GFR POC Glucose 151 H Random Glucose Lactic Acid 6.4 H* Calcium Calcium Adj for Albumin Total Bilirubin AST ALT Alkaline Phosphatase Total Protein Albumin MTS Gel Crossmatch Blood Bank Comment Bld Prod Order Comment 10/04/18 10/04/18 10/05/18 21:45 21:45 00:10 WBC RBC Hgb 8.2 L Hct 23.4 L MCV MCH MCHC RDW Plt Count MPV Prelim Diff (Auto) Neut % (Auto) Lymph % (Auto) Starr % (Auto) Eos % (Auto) Baso % (Auto) Neut # (Auto) Lymph # (Auto) Starr # (Auto) Eos # (Auto) Baso # (Auto) WBC Differential Diff Scan Differential Comment Platelet Estimate Platelet Morphology Polychromasia Basophilic Stippling Ovalocytes Acanthocytes (Spur) Keratocytes PT INR Fibrinogen Sodium Potassium Chloride Carbon Dioxide Anion Gap BUN Creatinine Estimated GFR POC Glucose 145 H Random Glucose Lactic Acid 5.9 H* Calcium Calcium Adj for Albumin Total Bilirubin AST ALT Alkaline Phosphatase Total Protein Albumin MTS Gel Crossmatch Blood Bank Comment Bld Prod Order Comment 10/05/18 10/05/18 10/05/18 03:40 03:40 03:40 WBC 7.4 RBC 2.81 L Hgb 8.4 L Hct 24.2 L MCV 86.3 MCH 29.8 MCHC 34.5 RDW 16.6 Plt Count 40 L D MPV 10.6 Prelim Diff (Auto) Slide review pending Neut % (Auto) 88.4 H Lymph % (Auto) 4.7 L Starr % (Auto) 6.8 Eos % (Auto) 0.1 Baso % (Auto) 0.0 Neut # (Auto) 6.5 Lymph # (Auto) 0.3 L Starr # (Auto) 0.5 Eos # (Auto) 0.0 Baso # (Auto) 0.0 WBC Differential . Diff Scan Auto diff confirmed Differential Comment . Platelet Estimate Low L Platelet Morphology Normal Polychromasia 3.4 H Basophilic Stippling Faint H Ovalocytes 1+ H Acanthocytes (Spur) Occ H Keratocytes Occ H PT 25.8 H INR 2.6 Fibrinogen Sodium Potassium Chloride Carbon Dioxide Anion Gap BUN Creatinine Estimated GFR POC Glucose Random Glucose Lactic Acid 5.6 H* Calcium Calcium Adj for Albumin Total Bilirubin AST ALT Alkaline Phosphatase Total Protein Albumin MTS Gel Crossmatch Blood Bank Comment d Prod Order Comment 10/05/18 10/05/18 10/05/18 03:40 07:39 07:49 WBC RBC Hgb 7.3 L Hct 21.3 L MCV MCH MCHC RDW Plt Count MPV Prelim Diff (Auto) Neut % (Auto) Lymph % (Auto) Starr % (Auto) Eos % (Auto) Baso % (Auto) Neut # (Auto) Lymph # (Auto) Starr # (Auto) Eos # (Auto) Baso # (Auto) WBC Differential Diff Scan Differential Comment Platelet Estimate Platelet Morphology Polychromasia Basophilic Stippling Ovalocytes Acanthocytes (Spur) Keratocytes PT INR Fibrinogen Sodium 145 Potassium 5.1 Chloride 106 Carbon Dioxide 26.9 Anion Gap 12 BUN 72 H Creatinine 3.18 H Estimated GFR 19 L POC Glucose Random Glucose 136 H Lactic Acid Calcium 7.2 L* Calcium Adj for Albumin 8.4 L Total Bilirubin 8.0 H AST 2177 H ALT 1023 H Alkaline Phosphatase 97 Total Protein 5.0 L Albumin 2.5 L MTS Gel Crossmatch Blood Bank Comment Bld Prod Order Comment 10/05/18 10/05/18 10/05/18 08:00 08:00 08:09 WBC RBC Hgb Hct MCV MCH MCHC RDW Plt Count MPV Prelim Diff (Auto) Neut % (Auto) Lymph % (Auto) Starr % (Auto) Eos % (Auto) Baso % (Auto) Neut # (Auto) Lymph # (Auto) Starr # (Auto) Eos # (Auto) Baso # (Auto) WBC Differential Diff Scan Differential Comment Platelet Estimate Platelet Morphology Polychromasia Basophilic Stippling Ovalocytes Acanthocytes (Spur) Keratocytes PT 31.9 H INR 3.2 Fibrinogen Less than 50 L* Sodium Potassium Chloride Carbon Dioxide Anion Gap BUN Creatinine Estimated GFR POC Glucose Random Glucose Lactic Acid Calcium Calcium Adj for Albumin Total Bilirubin AST ALT Alkaline Phosphatase Total Protein Albumin MTS Gel Crossmatch See Detail Blood Bank Comment Bld Prod Order Comment 10/05/18 08:21 WBC RBC Hgb Hct MCV MCH MCHC RDW Plt Count MPV Prelim Diff (Auto) Neut % (Auto) Lymph % (Auto) Starr % (Auto) Eos % (Auto) Baso % (Auto) Neut # (Auto) Lymph # (Auto) Starr # (Auto) Eos # (Auto) Baso # (Auto) WBC Differential Diff Scan Differential Comment Platelet Estimate Platelet Morphology Polychromasia Basophilic Stippling Ovalocytes Acanthocytes (Spur) Keratocytes PT INR Fibrinogen Sodium Potassium Chloride Carbon Dioxide Anion Gap BUN Creatinine Estimated GFR POC Glucose Random Glucose Lactic Acid Calcium Calcium Adj for Albumin Total Bilirubin AST ALT Alkaline Phosphatase Total Protein Albumin MTS Gel Crossmatch Blood Bank Comment Bld Prod Order Comment Microbiology 10/03/18 23:30 Sputum - Endotracheal Gram Stain - Final 10/03/18 10:17 Blood - Peripheral Aerobic Blood Culture - Preliminary No growth in 1 day 10/03/18 10:17 Blood - Peripheral Anaerobic Blood Culture - Preliminary No growth in 1 day 10/03/18 10:00 Blood - Peripheral Aerobic Blood Culture - Preliminary No growth in 1 day 10/03/18 10:00 Blood - Peripheral Anaerobic Blood Culture - Preliminary No growth in 1 day <Yovany Pulido - Last Filed: 10/05/18 09:33> - Labs CBC & Chem 7: 10/05/18 07:49 10/05/18 03:40 Laboratory Results - last 24 hr 10/04/18 10/04/18 10/04/18 10:15 12:45 15:05 WBC RBC Hgb 8.0 L Hct 23.3 L MCV MCH MCHC RDW Plt Count MPV Prelim Diff (Auto) Neut % (Auto) Lymph % (Auto) Starr % (Auto) Eos % (Auto) Baso % (Auto) Neut # (Auto) Lymph # (Auto) Starr # (Auto) Eos # (Auto) Baso # (Auto) WBC Differential Diff Scan Differential Comment Platelet Estimate Platelet Morphology Polychromasia Basophilic Stippling Ovalocytes Acanthocytes (Spur) Keratocytes PT INR Fibrinogen Sodium Potassium Chloride Carbon Dioxide Anion Gap BUN Creatinine Estimated GFR POC Glucose 111 H Random Glucose Lactic Acid Calcium Calcium Adj for Albumin Total Bilirubin AST ALT Alkaline Phosphatase Total Protein Albumin MTS Gel Crossmatch See Detail Blood Bank Comment Bld Prod Order Comment 10/04/18 10/04/18 10/04/18 15:05 18:03 21:45 WBC RBC Hgb 8.2 L Hct 23.4 L MCV MCH MCHC RDW Plt Count MPV Prelim Diff (Auto) Neut % (Auto) Lymph % (Auto) Starr % (Auto) Eos % (Auto) Baso % (Auto) Neut # (Auto) Lymph # (Auto) Starr # (Auto) Eos # (Auto) Baso # (Auto) WBC Differential Diff Scan Differential Comment Platelet Estimate Platelet Morphology Polychromasia Basophilic Stippling Ovalocytes Acanthocytes (Spur) Keratocytes PT INR Fibrinogen Sodium Potassium Chloride Carbon Dioxide Anion Gap BUN Creatinine Estimated GFR POC Glucose 151 H Random Glucose Lactic Acid 6.4 H* Calcium Calcium Adj for Albumin Total Bilirubin AST ALT Alkaline Phosphatase Total Protein Albumin MTS Gel Crossmatch Blood Bank Comment Bld Prod Order Comment 10/04/18 10/05/18 10/05/18 21:45 00:10 03:40 WBC RBC Hgb Hct MCV MCH MCHC RDW Plt Count MPV Prelim Diff (Auto) Neut % (Auto) Lymph % (Auto) Starr % (Auto) Eos % (Auto) Baso % (Auto) Neut # (Auto) Lymph # (Auto) Starr # (Auto) Eos # (Auto) Baso # (Auto) WBC Differential Diff Scan Differential Comment Platelet Estimate Platelet Morphology Polychromasia Basophilic Stippling Ovalocytes Acanthocytes (Spur) Keratocytes PT INR Fibrinogen Sodium Potassium Chloride Carbon Dioxide Anion Gap BUN Creatinine Estimated GFR POC Glucose 145 H Random Glucose Lactic Acid 5.9 H* 5.6 H* Calcium Calcium Adj for Albumin Total Bilirubin AST ALT Alkaline Phosphatase Total Protein Albumin MTS Gel Crossmatch Blood Bank Comment Bld Prod Order Comment 10/05/18 10/05/18 10/05/18 03:40 03:40 03:40 WBC 7.4 RBC 2.81 L Hgb 8.4 L Hct 24.2 L MCV 86.3 MCH 29.8 MCHC 34.5 RDW 16.6 Plt Count 40 L D MPV 10.6 Prelim Diff (Auto) Slide review pending Neut % (Auto) 88.4 H Lymph % (Auto) 4.7 L Starr % (Auto) 6.8 Eos % (Auto) 0.1 Baso % (Auto) 0.0 Neut # (Auto) 6.5 Lymph # (Auto) 0.3 L Starr # (Auto) 0.5 Eos # (Auto) 0.0 Baso # (Auto) 0.0 WBC Differential . Diff Scan Auto diff confirmed Differential Comment . Platelet Estimate Low L Platelet Morphology Normal Polychromasia 3.4 H Basophilic Stippling Faint H Ovalocytes 1+ H Acanthocytes (Spur) Occ H Keratocytes Occ H PT 25.8 H INR 2.6 Fibrinogen Sodium 145 Potassium 5.1 Chloride 106 Carbon Dioxide 26.9 Anion Gap 12 BUN 72 H Creatinine 3.18 H Estimated GFR 19 L POC Glucose Random Glucose 136 H Lactic Acid Calcium 7.2 L* Calcium Adj for Albumin 8.4 L Total Bilirubin 8.0 H AST 2177 H ALT 1023 H Alkaline Phosphatase 97 Total Protein 5.0 L Albumin 2.5 L MTS Gel Crossmatch Blood Bank Comment d Prod Order Comment 10/05/18 10/05/18 10/05/18 07:39 07:49 08:00 WBC RBC Hgb 7.3 L Hct 21.3 L MCV MCH MCHC RDW Plt Count MPV Prelim Diff (Auto) Neut % (Auto) Lymph % (Auto) Starr % (Auto) Eos % (Auto) Baso % (Auto) Neut # (Auto) Lymph # (Auto) Starr # (Auto) Eos # (Auto) Baso # (Auto) WBC Differential Diff Scan Differential Comment Platelet Estimate Platelet Morphology Polychromasia Basophilic Stippling Ovalocytes Acanthocytes (Spur) Keratocytes PT INR Fibrinogen Less than 50 L* Sodium Potassium Chloride Carbon Dioxide Anion Gap BUN Creatinine Estimated GFR POC Glucose Random Glucose Lactic Acid Calcium Calcium Adj for Albumin Total Bilirubin AST ALT Alkaline Phosphatase Total Protein Albumin MTS Gel Crossmatch Blood Bank Comment Bld Prod Order Comment 10/05/18 10/05/18 10/05/18 08:00 08:09 08:21 WBC RBC Hgb Hct MCV MCH MCHC RDW Plt Count MPV Prelim Diff (Auto) Neut % (Auto) Lymph % (Auto) Starr % (Auto) Eos % (Auto) Baso % (Auto) Neut # (Auto) Lymph # (Auto) Starr # (Auto) Eos # (Auto) Baso # (Auto) WBC Differential Diff Scan Differential Comment Platelet Estimate Platelet Morphology Polychromasia Basophilic Stippling Ovalocytes Acanthocytes (Spur) Keratocytes PT 31.9 H INR 3.2 Fibrinogen Sodium Potassium Chloride Carbon Dioxide Anion Gap BUN Creatinine Estimated GFR POC Glucose Random Glucose Lactic Acid Calcium Calcium Adj for Albumin Total Bilirubin AST ALT Alkaline Phosphatase Total Protein Albumin MTS Gel Crossmatch See Detail Blood Bank Comment Bld Prod Order Comment 10/05/18 09:13 WBC RBC Hgb Hct MCV MCH MCHC RDW Plt Count MPV Prelim Diff (Auto) Neut % (Auto) Lymph % (Auto) Starr % (Auto) Eos % (Auto) Baso % (Auto) Neut # (Auto) Lymph # (Auto) Starr # (Auto) Eos # (Auto) Baso # (Auto) WBC Differential Diff Scan Differential Comment Platelet Estimate Platelet Morphology Polychromasia Basophilic Stippling Ovalocytes Acanthocytes (Spur) Keratocytes PT INR Fibrinogen Sodium Potassium Chloride Carbon Dioxide Anion Gap BUN Creatinine Estimated GFR POC Glucose Random Glucose Lactic Acid Calcium Calcium Adj for Albumin Total Bilirubin AST ALT Alkaline Phosphatase Total Protein Albumin MTS Gel Crossmatch Blood Bank Comment Bld Prod Order Comment Microbiology 10/03/18 23:30 Sputum - Endotracheal Gram Stain - Final 10/03/18 10:17 Blood - Peripheral Aerobic Blood Culture - Preliminary No growth in 1 day 10/03/18 10:17 Blood - Peripheral Anaerobic Blood Culture - Preliminary No growth in 1 day 10/03/18 10:00 Blood - Peripheral Aerobic Blood Culture - Preliminary No growth in 1 day 10/03/18 10:00 Blood - Peripheral Anaerobic Blood Culture - Preliminary No growth in 1 day <Sukhi Vera - Last Filed: 10/05/18 10:05> Assessment and Plan (1) Hematemesis Status: Deleted Code(s): K92.0 - Hematemesis (2) Cirrhosis Status: Deleted Code(s): K74.60 - Unspecified cirrhosis of liver (3) Hx of hepatitis C Status: Deleted Code(s): Z86.19 - Personal history of other infectious and parasitic diseases (4) Thrombocytopenia Status: Deleted Code(s): D69.6 - Thrombocytopenia, unspecified (5) Tinea corporis Status: Acute Code(s): B35.4 - Tinea corporis (6) Hepatocellular carcinoma Status: Acute Code(s): C22.0 - Liver cell carcinoma - Plan 09/22/2018 EGD due to melena Hematemesis and history of cirrhosis 09/21/2018 EGD with band ligation of varices : 1. Large blood clot/blood in the fundus. Antrum normal 2. Blood in duodenum 3. Retroflexed views revealed large blood clot -Total bili 1.1 AST 40 ALT 34 alk phos 68 ammonia 43 hemoglobin 8.2 -No noted bleeding per nursing 09/23/2018 Post EGD 09/21/2018 showing large blood clots in the fundus antrum was normal there was blood in the duodenal retroflexed views revealed large blood clot recommendations for FFP platelets IV octreotide and Protonix. 09/24/2018 Liver cirrhosis with hematemesis -patient had a EGD showing large clots in the fundus of the antrum on 09/21/2018 Patient is currently intubated with Protonix IV push twice daily, octreotide discontinued this morning Hepatitis C Tinea corporis under chest Chronic kidney insufficiency Hyper ammonia 109 doubled from yesterday's level Total CK is elevated at 1370 Hemoglobin 7.6 hematocrit 22.1 platelets 48 BUN 64 creatinine 1.94 09/25/2018 Liver cirrhosis-post EGD on 09/21/2018 revealing large clots in the fundus of the antrum. Patient currently receiving IV Protonix twice daily Hemoglobin 7.7 hematocrit 22.2 stable, to begin Xifaxan, lactulose and nadolol Hepatitis C CKI Hyper ammonia-84--NG tube placement for administration of lactulose Xifaxan and nadolol 09/26/2018 Liver cirrhosis with ascites status post EGD on 09/21/2018 revealing large clots in the fundus of the antrum History of hepatitis C hepatocellular carcinoma status post TACE procedure Hyper ammonia Hemoglobin 9.4 hematocrit 27.3 platelet 56 INR 1.5 Ammonia today is 91 total bilirubin 1.8 09/29/2018 Liver cirrhosis with ascites Hepatitis C Hepatocellular carcinoma Hyper ammonia WBC 7.1 hemoglobin 8.5 hematocrit 25.1 platelet count 51 stable Patient awake and alert extubated on nasal cannula No reported bleeding Tolerating diet well post swallow evaluation 09/28/2018 KUB: Nasogastric tube is across the GE junction with persistent gaseous distention of stomach. Some small bowel gas is evident Moderate elevation the right hemidiaphragm. 09/30/2018 Liver cirrhosis with ascites Hepatitis C with hepatocellular carcinoma WBC 5.5 hemoglobin 7.7 hematocrit 22.5 No reported obvious bleeding-transfuse if needed to keep hemoglobin between 7 and 8 10/03/2018 Liver cirrhosis with ascites Hepatitis C with history of hepatocellular carcinoma GI has been notified that patient had hypotensive with tachycardic event this a.m. 08 [address] to low intermittent wall suction as patient was reintubated this a.m. Dark maroon colored gastric output in tubing Hemoglobin 5.6 hematocrit 17.6 platelet count 99 Coagulopathy INR 3.4 10/03/2018 Abdominal KUB; Persistent marked gastric distention suggestive of gastric outlet obstruction. Clinical correlation is recommended. Nasogastric tube has its tip in the proximal stomach. Degenerative changes throughout the thoracolumbar spine. 10/04/18 Liver cirrhosis with ascites Hepatitis C with history of hepatocellular carcinoma hgb today dropped to 7.2, received one unit of blood some bleeding noted in OGT 10/05/18 Reconsulted for active bleed. Likely variceal bleed, pt is intubated, actively bleeding. Per nurse, pt had multiple melanotic stools, OGT with bright bloody out put. Patient is maxed on pressors, but still critically hypotensive. receiving FFP, RBC, Plt, and Cryo transfusions. Patient with coagulopathy INR is 3.2, thrombocytopenia platelet count is [address] Pope Plan N.p.o. Supportive care Continue current measures Patient is critically ill with multiple comorbidities not stable for any invasive procedures this was discussed with nurse and Dr. Pope Palliative care following in light of patient's history of hepatocellular carcinoma and end-stage liver disease Poor prognosis This patient has been seen by myself and Dr. Vera and this note is written on his been <Yovany Pulido - Last Filed: 10/05/18 09:33> (1) Hematemesis Status: Deleted Code(s): K92.0 - Hematemesis (2) Cirrhosis Status: Deleted Code(s): K74.60 - Unspecified cirrhosis of liver (3) Hx of hepatitis C Status: Deleted Code(s): Z86.19 - Personal history of other infectious and parasitic diseases (4) Thrombocytopenia Status: Deleted Code(s): D69.6 - Thrombocytopenia, unspecified (5) Tinea corporis Status: Acute Code(s): B35.4 - Tinea corporis (6) Hepatocellular carcinoma Status: Acute Code(s): C22.0 - Liver cell carcinoma - Attending Attestation I have seen and examined the patient and reviewed the relevant portions of the chart and discussed the patient's current complaints, results and findings with the ACCOUNT MAINTENANCE REPRESENTATIVE. We have reviewed the therapeutic plan for the patient. I agree with the above assessment and recommendations as documented above. Patient has end- stage liver disease with severe coagulopathy, INR 3.2 and severe thrombocytopenia. September 21 he underwent upper endoscopy with variceal band ligation. He is now bleeding again. He is an appropriate candidate for palliative care only. He is profoundly hypotensive despite the use of aggressive intervention and pressors. We will sign off. If there is interest in him undergoing upper endoscopy emergently I be happy to return and see the patient and schedule upper endoscopy if the family chooses to go in that direction <Sukhi Vera - Last Filed: 10/05/18 10:05> <Yovany Pulido - Last Filed: 10/05/18 09:33> (1) Hematemesis Qualifiers: Nausea presence: unspecified Qualified Code(s): K92.0 - Hematemesis (2) Cirrhosis Qualifiers: Ascites presence: unspecified <Sukhi Vera - Last Filed: 10/05/18 10:05> (1) Hematemesis Qualifiers: Nausea presence: unspecified Qualified Code(s): K92.0 - Hematemesis (2) Cirrhosis Qualifiers: Ascites presence: unspecified
[2018-10-05 10:14] VITALS: TEMP 97.6
[2018-10-05] MEDS ORDERED: DOPamine 800 MG/500 ML Premix 800 MG/500 ML PLAST..BAG IV.CONT PRN (10:21)
[2018-10-05 10:44] VITALS: BP 58/37; PULSE 95; RESP 24
--- NOTE | 2018-10-05 14:54 | MD ---
cc: Conrado Pope MD DATE OF DISCHARGE: 10/05/2018 HOSPITAL COURSE: Patient is a 78-year-old male with a past medical history of hypertension, stroke with residual aphasia, former ETOH and tobacco use, history of hepatitis C and cirrhosis of the liver. The patient also was diagnosed with hepatocellular carcinoma and underwent chemoradiation therapy as well as chemoembolization at the [facility] in [place], [place]. He was admitted to [facility] on 09/2016 for hemoptysis, GI bleed and ascites. The patient was placed on Protonix and octreotide drip. He underwent intubation and mechanical ventilation. The patient was extubated on 09/28/2017 and reintubated on 10/03/2018. The patient underwent upper endoscopy with esophageal banding by Dr. Beverly. He also had multiple paracenteses during his ICU stay. The patient was placed on Rifaximin and lactulose for elevated ammonia level. Ultrasound of the abdomen was obtained on 09/23/2018, which showed a medical renal disease, cirrhosis of liver with ascites and small right pleural effusion likely hepatic hydrothorax. He was placed on fentanyl infusion for sedation and vent synchrony. Due to altered mental status, MRI of the brain was obtained on 09/26/2018, which showed no acute intracranial findings. His ICU stay was complicated by hemorrhagic shock, acute renal failure. The patient was on multiple pressors, Levophed, vasopressin, Jorden-Synephrine in addition to stress dose steroids. Due to renal dysfunction, he was initially placed on a bicarbonate drip. Also, he was on broad spectrum antibiotics empirically. His blood cultures, sputum showed no growth. Due to coagulopathy, thrombocytopenia, acute blood loss anemia, he required multiple blood products including red blood cells, fresh frozen plasma and cryoprecipitate. The patient was kept on sliding scale insulin to maintain euglycemia. On 10/05/2018 he continued to deteriorate with worsening renal function, worsening shock, requiring multiple pressors as stated previously. He was being followed by palliative care and the patient was made ALTERNATIVE CODE. On 10/05/2018, he went into asystole. Family was at the bedside and the patient was pronounced. MD LUCIA Celaya/ethel , 12:12 PM , 12:20 PM
== END 2018-10-05 11:37 | disposition expired | DRG 432 ==
LOC: NEPD 19:07 → NEDA 19:37 → HIMC 22:34
PROVIDERS: ADMIT Internal Medicine Critical Care Medicine; ATTEND Internal Medicine Critical Care Medicine
PROC: PANENDO (2018-09-21 20:35)
CPT/HCPCS: 31500; 36430; 36556; 36600; 36620; 49082; 49083; 70553; 71010; 71045; 74000; 74018; 76775; 76937; 80048; 80053; 80162; 80202; 82042; 82105; 82140; 82150; 82550; 82552; 82805; 82945; 82948; 82962; 83605; 83615; 83690; 83735; 83935; 84100; 84132; 84155; 84157; 84300; 84439; 84443; 84480; 84484; 85014; 85018; 85025; 85027; 85384; 85610; 85730; 86850; 86900; 86901; 86920; 86923; 86927; 86965; 87040; 87070; 87205; 87641; 89051; 92526; 92610; 93005; 93306; 94002; 94003; 94640; 94656; 94657; 94665; 97110; 97116; 97161; 97530; 99291; A9585; C1014; C1729; C9113; C9132; C9503; G0195; J0696; J1160; J1265; J1720; J1815; J1940; J2250; J2354; J2370; J2543; J2704; J3010; J3370; J3430; J3475; J3590; J7030; J7040; J7050; J7070; J7120; J7121; P9016; P9017; P9031; P9035; P9045; P9047